=== PATIENT | female | born 1950 | race Caucasian/White ===

== ENCOUNTER → 2018-05-29 06:39 | Outpatient (CLI) | payer MEDICARE, OTHER, SELFPAY ==
[2018-05-24 14:01] VITALS: BMI 25.1
--- NOTE | 2018-05-29 15:45 | STRESSREP_ITS ---
Stress Test Report Date: 05/29/2018 Procedure: Pharmacologic stress nuclear imaging study Indications: CAD status post PCI Consent: Per the patient Procedure: The patient underwent pharmacologic (Regadenoson) evaluation with a peak heart rate of 67 beats per minute (44 predicted maximal heart rate) and a peak blood pressure of 190/90 mmHg. The baseline ECG demonstrated sinus bradycardia. The peak pharmacologic ECG demonstrated no obvious ECG changes. [There were no cardiac dysrhythmias pretest, during pharmacologic infusion, or recovery]. [There was no complaint of chest discomfort during pharmacologic infusion or recovery]. The examination was discontinued secondary to completion of protocol. Impression: 1. Pharmacologic (Regadenoson) evaluation 2. Peak pharmacologic ECG with obvious ECG changes. 3. [There were no cardiac dysrhythmias pretest, during pharmacologic infusion, or recovery]. 4. Nuclear images pending Myocardial perfusion imaging study: Technique: The patient was injected with 10.9 millicuries of technetium 99m Cardiolite and subsequently rest SPECT Cardiolite nuclear imaging was obtained in the horizontal long, vertical long, and short axis views. The patient underwent pharmacologic (Regadenoson) evaluation with a peak heart rate of 67 beats per minute (44 % percent predicted maximal heart rate) and a peak blood pressure of 190/90 mmHg. The patient was injected with 31. millicuries of technetium 99m Cardiolite and subsequently stress SPECT Cardiolite nuclear imaging was obtained in the horizontal long, vertical long, and short axis views. A gated Cardiolite study at peak stress was obtained. Interpretation: Rest and stress SPECT Cardiolite nuclear imaging status post realignment, normalization, and attenuation correction demonstrate relative uniform tracer uptake and myocardial perfusion appearing within normal limits. [There is end systolic thickening and brightening]. [The gated Cardiolite study demonstrates myocardial thickening and inward wall motion]. The reported LVEF is 94 %. Impression: 1. [Rest and stress SPECT Cardiolite nuclear imaging demonstrate relative uniform tracer uptake and myocardial perfusion appearing within normal limits]. 2. The gated Cardiolite study reports an LVEF of 94 %. This note was generated with [email or web address] software. It may contain incorrect words, spelling, and punctuation that were not noted in checking the note before signing.
--- OUTSIDE RECORDS SUMMARY | 2018-07-15 05:12 | XMS RPT_ITS ---
:1950 Author Organization OHIP Support Name Relationship Address Phone SUMAYA RUIZ Unavailable [address] + [place] [address] R Unavailable Unavailable Unavailable FLORENCIO CENTENO Unavailable [address] + [place] [address] SARALIAMON Unavailable [address] + [place] [address] R Unavailable Unavailable Unavailable FLORENCIO CENTENO Unavailable [address] + [place] [address] SARA SUMAYA Unavailable [address] + [place] [address] R Unavailable Unavailable Unavailable FLORENCIO CENTENO Unavailable [address] + [place] [address] SARALIAMON Unavailable [address] + [place] [address] R Unavailable Unavailable Unavailable FLORENCIO CENTENO Unavailable [address] + [place] [address] SARALIAMON Unavailable [address] + [place] [address] R Unavailable Unavailable Unavailable FLORENCIO CENTENO Unavailable [address] + [place] [address] SUMAYA RUIZ Unavailable [address] + [place] [address] R Unavailable Unavailable Unavailable FLORENCIO CENTENO Unavailable [address] + [place] [address] SUMAYA RUIZ Unavailable [address] + [place] [address] R Unavailable Unavailable Unavailable FLORENCIO CENTENO Unavailable [address] + [place] [address] R Unavailable Unavailable Unavailable FLORENCIO CENTENO Unavailable [address] + [place] [address] R Unavailable Unavailable Unavailable FLORENCIO CENTENO Unavailable [address] + [place] [address] Care Team Providers Name Role Phone TALAMPAS, JOSE D Referring Unavailable PYLE, MARLENI (EXERCISE SCIENCE INSTRUCTOR) Attending Unavailable AYO HURTADO Attending Unavailable PYLE, MARLENI (EXERCISE SCIENCE INSTRUCTOR) Referring Unavailable TALAMPAS, JOSE D Attending Unavailable TALAMPAS, JOSE D Referring Unavailable TALAMPAS, JOSE D Attending Unavailable TALAMPAS, JOSE D Referring Unavailable PYLE, MARLENI (EXERCISE SCIENCE INSTRUCTOR) Referring Unavailable PYLE, MARLENI (EXERCISE SCIENCE INSTRUCTOR) Attending Unavailable KELLIE KONG (VANESSA) Referring Unavailable Cebul, Michele Attending Unavailable Cebul, Michele Referring Unavailable Talampas, Jose Primary Care Unavailable Penelope Koenig Attending Unavailable Penelope Koenig Referring Unavailable Talampas, Jose Primary Care Unavailable Penelope Koenig Attending Unavailable Talampas, Jose Referring Unavailable Cebul, Michele Attending Unavailable Talampas, Jose Referring Unavailable Cebul, Michele Attending Unavailable Cebul, Michele Referring Unavailable Talampas, Jose Primary Care Unavailable Cebul, Michele Consulting Unavailable Penelope Moscoso Attending Unavailable StoneyisSergio worhty Attending Unavailable Penelope Koenig Referring Unavailable MoodispaSergio casper Attending Unavailable Talampas, Jose Referring Unavailable MoodispawSergio Attending Unavailable Talampas, Jose Referring Unavailable Talampas, Jose Primary Care Unavailable PROBLEMS PROBLEMS DATE TYPE CONDITION / CODE ATTENDING STATUS SOURCE 07/02/2018 Unknown I73.9 - Peripheral Michele [facility] disease, Community unspecified / Hospital I73.9(ICD-10) Repository 05/24/2018 Unknown I25.10 - [facility] Atherosclerotic heart Penelope Kapoor [facility] disease [facility] coronary artery Repository without angina pectoris / I25.10(ICD-10) 05/24/2018 Unknown I10 - Essential [facility] Active [place] (primary) Penelope Kapoor [facility] hypertension / Hospital I10(ICD-10) Repository 05/24/2018 Unknown E78.5 - [facility], Active [facility] Hyperlipidemia, Penelope Kapoor Community unspecified / Hospital E78.5(ICD-10) Repository 12/18/2017 Active Hypothyroidism, NA Active [place] unspecified / Clinic Main E03.9(ICD-10) [place] Repository 03/19/2018 Active Unknown / JOSE FINLEY Active [place] UNK(Unknown) D Clinic Main [place] Repository 12/18/2017 Active Encounter for [facility] screening mammogram [facility] Main for malignant [place] neoplasm of breast / Repository Z12.31(ICD-10) 12/01/2017 Active [facility] [place] [facility] [place] [facility] (current) drug Clinic Main therapy / [place] Z79.899(ICD-10) Repository 09/09/2016 Active Scoliosis, NA [facility] unspecified / Clinic Other M41.9(ICD-10) [place] Repository 10/08/2015 Active Monoclonal gammopathy [facility] / D47.2(ICD-10) [facility] Main [place] Repository 04/17/2015 Active Essential (primary) [facility] hypertension / Clinic Main I10(ICD-10) [place] Repository 08/20/2009 Active Vitamin D deficiency, [facility] unspecified / Clinic Main E55.9(ICD-10) [place] Repository 12/05/2007 Active Mixed hyperlipidemia [facility] / E78.2(ICD-10) Clinic Main [place] Repository PROCEDURES PROCEDURES No Procedure Records FoundRESULTS RESULTS PROGRESS Observed: 07/02/2018 Status: COMPLETED Source: [place] 4:44 PM [facility] REPOSITORY HNO ID: [id number] Author: Marleni Pyle (Cns) Service: (none) Author Type: Nurse Specialist Type: Progress Notes Filed: 07/03/2018 5:01 PM Note Text: This note was created using NoteWriter. Subjective Celena Centeno is a 67 year old female. HPI HTN: Ms. Centeno indicates that she is without headache, chest pain, palpitations, dyspnea, peripheral edema, orthopnea, fatigue and PND. No adverse effects of medication as noted. Tries to eat a heart healthy diet. Weight is stable. Last 3 Encounter BP Readings: Date: BP: 07/02/2018 130/62 03/19/2018 124/68 12/08/2017 124/62 Hyperlipidemia. Ms. Centeno reports doing well on current therapy. No adverse effects of medication noted Her most recent lipid panels are: Cholesterol, Total (mg/dL) Date Value 06/28/2018 189 08/31/2017 202 HDL Cholesterol (mg/dL) Date Value 06/28/2018 39 08/31/2017 42 LDL Cholesterol (mg/dL) Date Value 06/28/2018 127 08/31/2017 134 Triglyceride (mg/dL) Date Value 06/28/2018 117 08/31/2017 132 Hypothyroidism. She is doing well on her current dose of Synthroid. No report of fatigue, cold intolerance, constipation, swelling in feet, weight gain, hair loss, dry skin, trouble swallowing and neck pain/pressure. TSH (uU/mL) Date Value 06/28/2018 4.170 03/19/2018 2.340 ) Review of Systems Constitutional: Negative. Respiratory: Negative. Cardiovascular: Negative. Gastrointestinal: Negative. Objective BP 130/62 (BP Site: Right Arm, BP Position: Sitting, BP Cuff Size: Regular Adult) Pulse (!) 56 Resp 16 Wt 64.9 kg (143 lb) BMI 25.33 kg/m? Physical Exam Constitutional: She is oriented to person, place, and time. She appears well-developed and well-nourished. HENT: Head: Normocephalic and atraumatic. Eyes: Conjunctivae are normal. Right eye exhibits no discharge. Left eye exhibits no discharge. No scleral icterus. Neck: No thyromegaly present. Cardiovascular: Normal rate, regular rhythm, normal heart sounds and intact distal pulses. Exam reveals no gallop and no friction rub. No murmur heard. Pulmonary/Chest: Effort normal and breath sounds normal. No respiratory distress. She has no wheezes. She exhibits no tenderness. Abdominal: Soft. Bowel sounds are normal. There is no tenderness. There is no guarding. Lymphadenopathy: She has no cervical adenopathy. Neurological: She is alert and oriented to person, place, and time. Skin: Skin is warm and dry. Psychiatric: She has a normal mood and affect. Nursing note and vitals reviewed. ALLERGIES Allergen Reactions - Codeine Hives - Darvon [Propoxyphen* Hives - Morphine Other: See Comments Made tongue swell - Penicillins Anaphylaxis - Simvastatin Other: See Comments elevated LFTS; had tolerated Lipitor for years without problem Current Outpatient Prescriptions: nystatin (MYCOSTATIN) powder Apply 1 application to affected area three times daily. [START ON 08/01/2018] sertraline (ZOLOFT) 100 mg tablet TAKE 1 TABLET EVERY DAY levothyroxine (SYNTHROID) 50 mcg tablet Take 0.5 tablets by mouth daily before breakfast. cholecalciferol, vitamin D3, (VITAMIN D3) 4,000 unit cap Take by mouth. pantoprazole DR (PROTONIX) 20 mg tablet Take 1 tablet by mouth twice daily. buPROPion (WELLBUTRIN) 100 mg tablet Take 1 tablet by mouth once daily. ferrous sulfate 325 mg (65 mg iron) tablet Take 1 tablet by mouth daily with breakfast. atorvastatin (LIPITOR) 40 mg tablet Take 1 tablet by mouth once daily. clopidogrel (PLAVIX) 75 mg tablet Take 1 tablet by mouth once daily. atenolol (TENORMIN) 25 mg tablet Take 1 tablet by mouth once daily. amLODIPine (NORVASC) 5 mg tablet Take 1 tablet by mouth once daily. nitroglycerin sublingual (NITROQUICK) 0.4 mg SL tablet Dissolve 1 tablet under the tongue as needed. DISSOLVE ON TONGUE FOR CHEST PAIN. IF NO PAIN RELIEF, CALL 911 polyethylene glycol 3350 (MIRALAX, GLYCOLAX) 17 gram/dose powder Take 17 g by mouth once daily. Use as needed. aspirin, enteric coated (ECOTRIN LOW STRENGTH) 81 mg ORAL EC tablet Take 1 tablet by mouth once daily. clonazePAM (KLONOPIN) 0.5 mg tablet Take 1 tablet by mouth once daily as needed for up to 60 days. No current facility-administered medications for this visit. Social History Marital status: Spouse name: Florencio Years of education: Number of children: 0 Social History Main Topics Smoking status: Former Smoker Packs/day: 0.50 Years: 30.00 Types: Cigarettes Quit date: 06/19/2002 Smokeless tobacco: Never Used Alcohol use: Yes Comment: socially Drug use: No Comment: Used marjiana in the past Sexual activity: Not Currently PAST MEDICAL HISTORY Diagnosis Date - Acute gastritis without mention of hemorrhage - Acute myocardial infarction of other specified sites, episode of care unspecified Myocardial Infarction--DR RAY - Adenomatous colon polyp TA on Jun 2015 colonoscopy (Dr. 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 Davison - Severe vulvar dysplasia - Vitamin D Deficiency 08/20/2009 Component Latest Ref Rng AND Units 08/31/2017 12/01/2017 03/19/2018 06/28/2018 Protein, Total 6.3 - 8.0 g/dL 7.7 Albumin 3.9 - 4.9 g/dL 4.4 Calcium 8.5 - 10.2 mg/dL 10.1 10.1 9.8 Bilirubin, Total 0.2 - 1.3 mg/dL 0.3 Alkaline Phosphatase 32 - 117 U/L 83 AST 13 - 35 U/L 19 Glucose 74 - 99 mg/dL 105 (H) 99 100 (H) BUN 7 - 21 mg/dL 13 12 9 Creatinine 0.58 - 0.96 mg/dL 0.98 (H) 0.83 0.76 Sodium 136 - 144 mmol/L 140 144 142 Potassium 3.7 - 5.1 mmol/L 3.2 (L) 3.8 3.7 Chloride 97 - 105 mmol/L 100 104 101 CO2 22 - 30 mmol/L 24 24 25 Anion Gap 9 - 18 mmol/L 16 16 16 ALT 7 - 38 U/L 16 eGFR- >60 >60 >60 eGFR-All Other Races . 57 >60 >60 WBC 3.70 - 11.00 k/uL 11.22 (H) RBC 3.90 - 5.20 m/uL 4.69 Hemoglobin 11.5 - 15.5 g/dL 14.1 Hematocrit 36.0 - 46.0 % 43.4 MCV 80.0 - 100.0 fL 92.5 MCH 26.0 - 34.0 pG 30.1 MCHC 30.5 - 36.0 g/dL 32.5 RDW-CV 11.5 - 15.0 % 13.8 Platelet Count 150 - 400 k/uL 229 MPV 9.0 - 12.7 fL 11.1 Absolute nRBC <0.01 k/uL <0.01 Cholesterol, Total <200 mg/dL 202 (H) 189 Triglyceride <150 mg/dL 132 117 HDL Cholesterol >39 mg/dL 42 39 (L) LDL Cholesterol <100 mg/dL 134 (H) 127 (H) Non HDL Cholesterol <130 mg/dL 160 (H) 150 (H) Fasting Time hrs 8 19 VLDL Cholesterol <30 mg/dL 26 23 TC:HDL Ratio <5.10 4.81 4.85 LDL:HDL Ratio <2.54 3.19 (H) 3.26 (H) Hemoglobin A1C 4.3 - 5.6 % 5.5 Estimated Average Glucose mg/dL 111 TSH 0.400 - 5.500 uU/mL 4.890 5.330 2.340 4.170 Free T4 0.9 - 1.7 ng/dL 1.3 1.4 1.4 Vitamin D 25 Hydroxy 31.0 - 80.0 ng/mL 44.5 49.0 Free T3 2.3 - 4.1 pg/mL 2.8 Assessment and Plan 1. Mixed hyperlipidemia - ICD9: 272.2, ICD10: E78.2 (primary diagnosis) - good control - Continue current medication. - COMP METABOLIC PANEL - LIPID PANEL BASIC 2. Essential hypertension - ICD9: 401.9, ICD10: I10 - good control - Continue current medication(s) - Encouraged dietary sodium restriction/DASH diet - Recommended regular aerobic exercise. - Goal of BP <130/80 - COMP METABOLIC PANEL 3. Acquired hypothyroidism - ICD9: 244.9, ICD10: E03.9 Feeling well her current dose of thyroid replacement, continue unchanged for now. Recheck labs in 3-12 mos, sooner if concerns will - Instructed patient on importance of taking on an empty stomach either first thing in the morning or at bedtime. - continue current dose of Synthroid - Follow up in 3 months - COMP METABOLIC PANEL - TSH BLD - T4 FREE/FREE THYROX 4. Bipolar disorder, current episode manic without psychotic features, severe (HCC) - ICD9: 296.43, ICD10: F31.13 Currently controlled 5. Vitamin D deficiency - ICD9: 268.9, ICD10: E55.9 Continue supplementation unchanged - VITAMIN D 25 HYDROXY 6. Candidiasis - ICD9: 112.9, ICD10: B37.9 - NYSTATIN 100,000 UNIT/GRAM TOPICAL POWDER follow up 3 mos with MD Marleni Lopez APRN.EXERCISE SCIENCE INSTRUCTOR CNOV Observed: 07/02/2018 Status: COMPLETED Source: [place] 4:40 PM [facility] REPOSITORY Office Visit (INTMWS) CELENA CENTENO ([id number]) 1950 F Date Time Provider Department 07/02/18 4:40 PM MARLENI PYLE ([facility]) INTM[facility] During your visit today, we recorded the following information about you: Pulse Respiration Blood pressure Weight 56/minute 16/minute 130/62 64.9 kg Marleni Pyle APRN.CNS 07/03/2018 5:01 PM Signed This note was created using NoteWriter. Subjective Celena Centeno is a 67 year old female. HPI HTN: Ms. Centeno indicates that she is without headache, chest pain, palpitations, dyspnea, peripheral edema, orthopnea, fatigue and PND. No adverse effects of medication as noted. Tries to eat a heart healthy diet. Weight is stable. Last 3 Encounter BP Readings: Date: BP: 07/02/2018 130/62 03/19/2018 124/68 12/08/2017 124/62 Hyperlipidemia. Ms. Centeno reports doing well on current therapy. No adverse effects of medication noted Her most recent lipid panels are: Cholesterol, Total (mg/dL) Date Value 06/28/2018 189 08/31/2017 202 HDL Cholesterol (mg/dL) Date Value 06/28/2018 39 08/31/2017 42 LDL Cholesterol (mg/dL) Date Value 06/28/2018 127 08/31/2017 134 Triglyceride (mg/dL) Date Value 06/28/2018 117 08/31/2017 132 Hypothyroidism. She is doing well on her current dose of Synthroid. No report of fatigue, cold intolerance, constipation, swelling in feet, weight gain, hair loss, dry skin, trouble swallowing and neck pain/pressure. TSH (uU/mL) Date Value 06/28/2018 4.170 03/19/2018 2.340 ) Review of Systems Constitutional: Negative. Respiratory: Negative. Cardiovascular: Negative. Gastrointestinal: Negative. Objective BP 130/62 (BP Site: Right Arm, BP Position: Sitting, BP Cuff Size: Regular Adult) Pulse (!) 56 Resp 16 Wt 64.9 kg (143 lb) BMI 25.33 kg/m? Physical Exam Constitutional: She is oriented to person, place, and time. She appears well-developed and well-nourished. HENT: Head: Normocephalic and atraumatic. Eyes: Conjunctivae are normal. Right eye exhibits no discharge. Left eye exhibits no discharge. No scleral icterus. Neck: No thyromegaly present. Cardiovascular: Normal rate, regular rhythm, normal heart sounds and intact distal pulses. Exam reveals no gallop and no friction rub. No murmur heard. Pulmonary/Chest: Effort normal and breath sounds normal. No respiratory distress. She has no wheezes. She exhibits no tenderness. Abdominal: Soft. Bowel sounds are normal. There is no tenderness. There is no guarding. Lymphadenopathy: She has no cervical adenopathy. Neurological: She is alert and oriented to person, place, and time. Skin: Skin is warm and dry. Psychiatric: She has a normal mood and affect. Nursing note and vitals reviewed. ALLERGIES Allergen Reactions - Codeine Hives - Darvon [Propoxyphen* Hives - Morphine Other: See Comments Made tongue swell - Penicillins Anaphylaxis - Simvastatin Other: See Comments elevated LFTS; had tolerated Lipitor for years without problem Current Outpatient Prescriptions: nystatin (MYCOSTATIN) powder Apply 1 application to affected area three times daily. [START ON 08/01/2018] sertraline (ZOLOFT) 100 mg tablet TAKE 1 TABLET EVERY DAY levothyroxine (SYNTHROID) 50 mcg tablet Take 0.5 tablets by mouth daily before breakfast. cholecalciferol, vitamin D3, (VITAMIN D3) 4,000 unit cap Take by mouth. pantoprazole DR (PROTONIX) 20 mg tablet Take 1 tablet by mouth twice daily. buPROPion (WELLBUTRIN) 100 mg tablet Take 1 tablet by mouth once daily. ferrous sulfate 325 mg (65 mg iron) tablet Take 1 tablet by mouth daily with breakfast. atorvastatin (LIPITOR) 40 mg tablet Take 1 tablet by mouth once daily. clopidogrel (PLAVIX) 75 mg tablet Take 1 tablet by mouth once daily. atenolol (TENORMIN) 25 mg tablet Take 1 tablet by mouth once daily. amLODIPine (NORVASC) 5 mg tablet Take 1 tablet by mouth once daily. nitroglycerin sublingual (NITROQUICK) 0.4 mg SL tablet Dissolve 1 tablet under the tongue as needed. DISSOLVE ON TONGUE FOR CHEST PAIN. IF NO PAIN RELIEF, CALL 911 polyethylene glycol 3350 (MIRALAX, GLYCOLAX) 17 gram/dose powder Take 17 g by mouth once daily. Use as needed. aspirin, enteric coated (ECOTRIN LOW STRENGTH) 81 mg ORAL EC tablet Take 1 tablet by mouth once daily. clonazePAM (KLONOPIN) 0.5 mg tablet Take 1 tablet by mouth once daily as needed for up to 60 days. No current facility-administered medications for this visit. Social History Marital status: Spouse name: Florencio Years of education: Number of children: 0 Social History Main Topics Smoking status: Former Smoker Packs/day: 0.50 Years: 30.00 Types: Cigarettes Quit date: 06/19/2002 Smokeless tobacco: Never Used Alcohol use: Yes Comment: socially Drug use: No Comment: Used marjiana in the past Sexual activity: Not Currently PAST MEDICAL HISTORY Diagnosis Date - Acute gastritis without mention of hemorrhage - Acute myocardial infarction of other specified sites, episode of care unspecified Myocardial Infarction--DR RAY - Adenomatous colon polyp TA on Jun 2015 colonoscopy (Dr. 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 Davison - Severe vulvar dysplasia - Vitamin D Deficiency 08/20/2009 Component Latest Ref Rng AND Units 08/31/2017 12/01/2017 03/19/2018 06/28/2018 Protein, Total 6.3 - 8.0 g/dL 7.7 Albumin 3.9 - 4.9 g/dL 4.4 Calcium 8.5 - 10.2 mg/dL 10.1 10.1 9.8 Bilirubin, Total 0.2 - 1.3 mg/dL 0.3 Alkaline Phosphatase 32 - 117 U/L 83 AST 13 - 35 U/L 19 Glucose 74 - 99 mg/dL 105 (H) 99 100 (H) BUN 7 - 21 mg/dL 13 12 9 Creatinine 0.58 - 0.96 mg/dL 0.98 (H) 0.83 0.76 Sodium 136 - 144 mmol/L 140 144 142 Potassium 3.7 - 5.1 mmol/L 3.2 (L) 3.8 3.7 Chloride 97 - 105 mmol/L 100 104 101 CO2 22 - 30 mmol/L 24 24 25 Anion Gap 9 - 18 mmol/L 16 16 16 ALT 7 - 38 U/L 16 eGFR- >60 >60 >60 eGFR-All Other Races . 57 >60 >60 WBC 3.70 - 11.00 k/uL 11.22 (H) RBC 3.90 - 5.20 m/uL 4.69 Hemoglobin 11.5 - 15.5 g/dL 14.1 Hematocrit 36.0 - 46.0 % 43.4 MCV 80.0 - 100.0 fL 92.5 MCH 26.0 - 34.0 pG 30.1 MCHC 30.5 - 36.0 g/dL 32.5 RDW-CV 11.5 - 15.0 % 13.8 Platelet Count 150 - 400 k/uL 229 MPV 9.0 - 12.7 fL 11.1 Absolute nRBC <0.01 k/uL <0.01 Cholesterol, Total <200 mg/dL 202 (H) 189 Triglyceride <150 mg/dL 132 117 HDL Cholesterol >39 mg/dL 42 39 (L) LDL Cholesterol <100 mg/dL 134 (H) 127 (H) Non HDL Cholesterol <130 mg/dL 160 (H) 150 (H) Fasting Time hrs 8 19 VLDL Cholesterol <30 mg/dL 26 23 TC:HDL Ratio <5.10 4.81 4.85 LDL:HDL Ratio <2.54 3.19 (H) 3.26 (H) Hemoglobin A1C 4.3 - 5.6 % 5.5 Estimated Average Glucose mg/dL 111 TSH 0.400 - 5.500 uU/mL 4.890 5.330 2.340 4.170 Free T4 0.9 - 1.7 ng/dL 1.3 1.4 1.4 Vitamin D 25 Hydroxy 31.0 - 80.0 ng/mL 44.5 49.0 Free T3 2.3 - 4.1 pg/mL 2.8 Assessment and Plan 1. Mixed hyperlipidemia - ICD9: 272.2, ICD10: E78.2 (primary diagnosis) - good control - Continue current medication. - COMP METABOLIC PANEL - LIPID PANEL BASIC 2. Essential hypertension - ICD9: 401.9, ICD10: I10 - good control - Continue current medication(s) - Encouraged dietary sodium restriction/DASH diet - Recommended regular aerobic exercise. - Goal of BP <130/80 - COMP METABOLIC PANEL 3. Acquired hypothyroidism - ICD9: 244.9, ICD10: E03.9 Feeling well her current dose of thyroid replacement, continue unchanged for now. Recheck labs in 3-12 mos, sooner if concerns will - Instructed patient on importance of taking on an empty stomach either first thing in the morning or at bedtime. - continue current dose of Synthroid - Follow up in 3 months - COMP METABOLIC PANEL - TSH BLD - T4 FREE/FREE THYROX 4. Bipolar disorder, current episode manic without psychotic features, severe (HCC) - ICD9: 296.43, ICD10: F31.13 Currently controlled 5. Vitamin D deficiency - ICD9: 268.9, ICD10: E55.9 Continue supplementation unchanged - VITAMIN D 25 HYDROXY 6. Candidiasis - ICD9: 112.9, ICD10: B37.9 - NYSTATIN 100,000 UNIT/GRAM TOPICAL POWDER follow up 3 mos with MD Marleni Lopez APRN.EXERCISE SCIENCE INSTRUCTOR Referring Provider: SELF [200] Allergies As of Date: 07/02/2018 Noted Allergy Reaction CODEINE 10/11/2007 4 - Hives DARVON (PROPOXYPHENE HCL) 10/11/2007 4 - Hives MORPHINE 09/14/2017 14 - Other: See Comments Comments: Made tongue swell PENICILLINS 10/11/2007 10 - Anaphylaxis SIMVASTATIN 04/17/2012 14 - Other: See Comments Comments: elevated LFTS; had tolerated Lipitor for years without problem Date Reviewed: 07/02/2018 Reviewed by: Mary Ann Henao LPN - Fully Assessed Reason for Visit: F/U 3 Month [443] Primary Visit Diagnosis:Mixed hyperlipidemia [E78.2] Other Visit Diagnoses:Essential hypertension [I10] Acquired hypothyroidism [E03.9] Bipolar disorder, current episode manic without psychotic features, severe (HCC) [F31.13] Vitamin D deficiency [E55.9] Candidiasis [B37.9] Order(s):nystatin (MYCOSTATIN) powderApply 1 application to affected area three times daily.Disp: 1 BottleRfl: 0 COMP METABOLIC PANEL [SQCMP] Order #: [id number] FUTURE LIPID PANEL BASIC [SQLIPB] Order #: [id number] FUTURE TSH BLD [SQTSH] Order #: [id number] FUTURE VITAMIN D 25 HYDROXY [SQVITD] Order #: [id number] FUTURE T4 FREE/FREE THYROX [SQFT4] Order #: [id number] FUTURE Prescriptions as of 07/02/2018 Sig: NYSTATIN 100,000 UNIT/GRAM TO* Apply 1 application to affect* SERTRALINE 100 MG TABLET TAKE 1 TABLET EVERY DAY LEVOTHYROXINE 50 MCG TABLET Take 0.5 tablets by mouth nirmala* CHOLECALCIFEROL (VITAMIN D3) * Take by mouth. PANTOPRAZOLE 20 MG TABLET,DEL* Take 1 tablet by mouth twice * BUPROPION HCL 100 MG TABLET Take 1 tablet by mouth once d* FERROUS SULFATE 325 MG (65 MG* Take 1 tablet by mouth daily * ATORVASTATIN 40 MG TABLET Take 1 tablet by mouth once d* CLOPIDOGREL 75 MG TABLET Take 1 tablet by mouth once d* ATENOLOL 25 MG TABLET Take 1 tablet by mouth once d* AMLODIPINE 5 MG TABLET Take 1 tablet by mouth once d* NITROGLYCERIN 0.4 MG SUBLINGU* Dissolve 1 tablet under the t* POLYETHYLENE GLYCOL 3350 17 G* Take 17 g by mouth once daily* * ASPIRIN 81 MG TABLET,DELAYED * Take 1 tablet by mouth once d* CLONAZEPAM 0.5 MG TABLET Take 1 tablet by mouth once d* Problem List As Of Date 07/02/2018 Noted Resolved Essential hypertension [I10] More... MIXED HYPERLIPIDEMIA [E78.2] More... BIPOLAR DISORDER NOS [F31.9] More... Acquired hypothyroidism [E03.9] More... Acute myocardial infarction of other specified * 09/12/2016 More... DIVERTICULOSIS OF COLON W/O BLEED [K57.30] More... GENERAL OSTEOARTHROSIS [M15.9] More... IRRITABLE COLON [K58.9] INVALID FOR* ASCVD [I25.10] More... Vitamin D Deficiency [E55.9] INVALID FOR* Hypokalemia [E87.6] INVALID FOR* Anemia [D64.9] Acute gastritis without mention of hemorrhage [*INVALID FOR* Duodenitis without mention of hemorrhage [K29.8*INVALID FOR* Diarrhea [R19.7] INVALID FOR* Family history of malignant neoplasm of gastroi*INVALID FOR* Pyoderma, unspecified [L08.0] INVALID FOR* Acne Vulgaris: Inflammatory Grade III to IV: no*INVALID FOR* Excoriations [T14.8XXA] INVALID FOR* Xerosis cutis [L85.3] INVALID FOR* Solar lentigines [L81.4] INVALID FOR* Actinic Damage//Sun-damaged skin [L57.8] INVALID FOR* CAD (coronary artery disease), [place] coronary *INVALID FOR* More... 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 Fatty infiltration of liver [K76.0] INVALID FOR* Acne Scars [L90.5] INVALID FOR* IBS (irritable bowel syndrome) [K58.9] PAD (peripheral artery disease) [I73.9] INVALID FOR* Sciatica due to displacement of lumbar interver* More... GERD (gastroesophageal reflux disease) [K21.9] INVALID FOR* Iron deficiency anemia due to chronic blood los*INVALID FOR*06/24/2015 Family history of colon cancer [Z80.0] INVALID FOR*06/24/2015 MGUS (monoclonal gammopathy of unknown signific*INVALID FOR* Iron deficiency anemia [D50.9] INVALID FOR* Scoliosis of lumbar spine [M41.9] INVALID FOR* S/P lumbar spinal fusion [Z98.1] INVALID FOR* Prescriptions ordered this encounter Disp Refills Start End NYSTATIN 100,000 UNIT/GRAM TOPICAL P* 1 Mikey* 0 07/02/2018 Route: TOPICAL Sig: Apply 1 application to affected area three times daily. Medications Discontinued During This Encounter nystatin (MYCOSTATIN) powder 1 Mikey* 0 02/26/2016 07/02/2018 Route: TOPICAL Sig: Apply 1 application to affected area three times daily. Disc: Reason for discontinue is not on file. Encounter Status:Closed by MARLENI BARNETT on 07/03/18 SURGERY VISIT REPORT Observed: 07/02/2018 Status: F Source: [place] 1:28 PM [facility] REPOSITORY [facility] 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 Is patient in pain?: Yes Allergies codeine Allergy (Severe, Verified 07/02/18 13:07) Swelling propoxyphene HCl [From Darvon] Allergy (Severe, Verified 07/02/18 13:07) Other simvastatin Allergy (Verified 07/02/18 13:07) Unknown Penicillins Adverse Reaction (Intermediate, Verified 07/02/18 13:07) Nausea/Vom/Diarrhea Medications Amlodipine [Norvasc] 5 mg PO DAILY 06/04/13 [History Confirmed 07/02/18] Aspirin [Aspirin, Baby] 81 mg PO DAILY@0800 06/04/13 [History Confirmed 07/02/18] Atenolol [Tenormin (beta madelaine)] 25 mg PO DAILY 06/04/13 [History Confirmed 07/02/18] Clopidogrel Bisulfate [Plavix] 75 mg PO DAILY 06/04/13 [History Confirmed 07/02/18] Nitroglycerin [Nitrostat] 0.4 mg SUBLINGUAL Q5M PRN 06/04/13 [History Confirmed 07/02/18] Pantoprazole Sodium [Protonix] 20 mg PO BID 06/04/13 [History Confirmed 07/02/18] cholecalciferol (vitamin D3) 5,000 unit capsule 5,000 unit PO DAILY 05/24/18 [History Confirmed 07/02/18] atorvastatin 40 mg tablet 40 mg PO DAILY 30 Days #30 tab 06/28/18 [History Confirmed 07/02/18] bupropion HCl SR 100 mg tablet,12 hr sustained-release 100 mg PO DAILY 06/28/18 [History Confirmed 07/02/18] levothyroxine 50 mcg tablet 25 mcg PO DAILY tab 06/28/18 [History Confirmed 07/02/18] sertraline 100 mg tablet 100 mg PO DAILY tab 06/28/18 [History Confirmed 07/02/18] Is last menstrual period known: No Post menopausal: Yes Patient : No PFSH Medical History Hypothyroidism (Chronic) Presence of stent in coronary artery (Chronic) Atherosclerotic heart disease of [place] coronary artery without angina pectoris (Chronic) HLD (hyperlipidemia) (Chronic) Benign essential HTN (Chronic) IBS (irritable bowel syndrome) (Chronic) History of hysterectomy (Resolved) Arteriosclerotic heart disease (ASHD) (Inactive) Surgical History PAD (peripheral artery disease) (Chronic) History of aorto-femoral bypass (Acute) History of heart artery stent (Acute) History of hysterectomy (Resolved) History of left knee surgery (Resolved) History of lumbar surgery (Resolved) Family History Brother CVA (cerebral vascular accident) Heart disease Cancer Social History Smoking Status: Former smoker alcohol intake: never substance use type: does not use HPI HPI HPI: CELENA CENTENO, is a 67 F who presents to the office today for for surgical follow-up regarding bilateral lower extremity peripheral vascular occlusive disease. I have assisted her with surgery in the year 2015. She states that when she showers she cannot feel the water hit her left anterior thigh. Occasionally she has tingling go down her left anterior thigh. With walking she still develops bilateral calf claudication. On February 01, 2016 I performed a left external iliac and common femoral endarterectomy with bovine patch angioplasty. She has had recent PVRs performed at the [facility] on June 25, 2018. The right PT and DP ABIs were 1 and 0.96 with triphasic waveforms. The left PT and DP ABIs were 0.92 and 0.91 also with triphasic waveforms. Exercise indices were not obtained. It is of note that August 17, 2015 prior to her surgical intervention on her left leg her right PT and DP ABIs were 1.04 and 0.98 in her left PT and DP ABIs were 0.55 and 0.55. At that time her waveforms on the left were only monophasic. The current testing demonstrates dramatic improvement involving the left lower extremity. The patient is on aspirin and clopidogrel therapy. She had previously been a longtime cigarette smoker. She thinks she quit as many as 14 years ago but her still smokes. Although she has a treadmill in the basement she does not utilize it. She walks sometimes during [place]. She gets very little exercise during the winter. ROS General General: Yes fatigue; no weight change, appetite, colon cancer, breast cancer or weakness HEENT HEENT: No difficulty swallowing, eye injury, eye surgery, swollen glands or hoarseness Endo Endocrine: Yes thyroid disease; no diabetes mellitus, thyroid cancer, Hair loss, heat intolerance or cold intolerance Musc Musculoskeletal: Yes back problems and arthritis; no rheumatoid arthritis, gout or joint pain Cardio Cardiovascular: Yes heart disease, high blood pressure, heart attack and heart stent; no murmur, pacemaker, atrial fibrillation, palpitations, shortness of breat with exertion or chest pain Resp Respiratory: No shortness of breath, No sleep apnea, No cough, No COPD, No asthma, No emphysema, No wheezing Gastro Gastrointestinal: No abdominal pain, No nausea or vomiting, Yes diarrhea, No constipation, No blood in stool, Yes acid reflux, No hemorrhoids, No ulcers, No gallbladder problem, No black,tarry stools Jabari Hematologic: Yes blood thinners, No blood disorders, No bleeding, Yes anemia, No blood clots Neuro Neurologic: No weakness Exam Chest Other: Increased anterior posterior diameter Resp Other: Diminished respiratory excursion, clear Cardio Heart Sounds: no murmurs Other: Bilateral carotids are 3+. No carotid bruits. Bilateral brachials and radials are 2+ Bilateral femorals 3+. Bilateral popliteals 3+. Bilateral DPs and PTs 2+. Extrem Other: Very nicely completely healed soft and supple left groin incision related to her endarterectomy with patch angioplasty. No palpable tenderness. No mass. No erythema. Not expansile Assessment AND Plan Problems 1. PAD (peripheral artery disease) I73.9 Plan 67-year-old female with what appears to be stable peripheral vascular occlusive disease. I suspect that the left anterior thigh intermittent numbness likely has to do with her left external iliac common femoral endarterectomy with patch angioplasty with some mild neuropraxia. I am not demonstrating any signs or symptoms that would suggest deterioration of that repair or infection or complication. I have vigorously encouraged the patient that I think it is in her best interest to initiate a daily exercise program which could be as simple as walking. We have discussed winter cold weather and her utilizing the treadmill that she already has at home or utilizing an indoor facility for walking. I am not recommending surgical intervention at this setting. She has had an opportunity to ask and have questions answered. I will anticipate PVRs with exercise at 1 year and surgical follow-up at that time. She has had an opportunity to ask and have questions answered. I am actually quite pleased with the surgical results and progress. I believe that this mostly now is in encouragement for self rehabilitation CC: Dr. Jose Corrales M.D., F.A.C.S Coding Level of Care Code Off vis,est,level 2 Diagnoses PAD (peripheral artery disease) I73.9 07/02/18 1328 <Electronically signed by Michele Corrales MD> Date Michele Corrales MD Cosigner Signature: Date (if applicable) CC: Jose Finley MD BASIC METABOLIC PANL Collected: 06/28/2018 Status: F Source: [place] 2[facility] REPOS[facility] TYPE CODE TESTS RESULT OUT OF REFERENCE UNITS RANGE LAB GLU 74-99 mg/dL High Glucose 100 Result Comment: The [place] Diabetes Association (ADA) provides guidance for cutoff values for fasting glucose and random glucose. The ADA defines fasting as no caloric intake for at least 8 hours. Fas ting plasma glucose results between 100 to 125 mg/dL indicate increased risk for diabetes (prediabetes). Fasting plasma glucose results greater than or equal to 126 mg/dL meet the criteria for diagnosis of diabetes. In the absence of unequivocal hyperglycemia, results should be confirmed by repeat testing. In a patient with classic symptoms of hyperglycemia or hyperglycemic crisis, random plasma glucose results greater than or equal to 200 mg/dL meet the criteria for diagnosis of diabetes. Reference: Standards of Medical Care in Diabetes 2016, [place] Diabetes Association. Diabetes Care. 2016.39(Suppl 1). LAB BUN 7-21 mg/dL BUN 9 LAB CRET 0.58-0.96 mg/dL Creatinine 0.76 LAB NA 136-144 mmol/L Sodium 142 LAB K 3.7-5.1 mmol/L Potassium 3.7 LAB CL 97-105 mmol/L Chloride 101 LAB CO2 22-30 mmol/L CO2 25 LAB AGAP 9-18 mmol/L Anion Gap 16 LAB CA 8.5-10.2 mg/dL Calcium, Total 9.8 LAB GFRAA eGFR- Amer. >60 LAB GFRNAA . eGFR-All Other Races >60 Result Comment: eGFR (Estimated GFR) Units of measure: mL/min/1.73 meters squared eGFR is derived from the reexpressed MDRD Study equation using the following parameters: serum creatinine, age, gender and race. The creatinine assay has been calibrated to be traceable to IDMS. An eGFR <60 mL/min/1.73m2 for >3 months is consistent with chronic kidney disease. Refer to KDOQI guidelines for clinical interpretation. In patients with unstable renal function, e.g. those with acute kidney injury, the eGFR may not accurately reflect actual GFR. Performed By: #### BMP, LIPB, TSH #### [facility] [address] [place] [id number] LIPID PANEL, BASIC Collected: 06/28/2018 Status: F Source: [place] 2:20 PM [facility] REPOSITORY TYPE CODE TESTS RESULT OUT OF REFERENCE UNITS RANGE LAB CHOL <200 mg/dL Cholesterol 189 Result Comment: <200 mg/dL, Desirable 200-239 mg/dL, Borderline high >239 mg/dL, High LAB TRIGLY <150 mg/dL Triglyceride 117 Result Comment: <150 mg/dL, Normal 150-199 mg/dL, Borderline high 200-499 mg/dL, High >499 mg/dL, Very high LAB HDL >39 mg/dL HDL-Cholesterol Low 39 Result Comment: 40-59 mg/dL, Acceptable >59 mg/dL, High: Negative risk factor for coronary heart disease <40 mg/dL, Low: Positive risk factor for coronary heart disease LAB LDL <100 mg/dL LDL-Cholesterol High 127 Result Comment: <100 mg/dL, Optimal 100-129 mg/dL, Near optimal/above optimal 130-159 mg/dL, Borderline high 160-189 mg/dL, High >189 mg/dL, Very high Secondary prevention optimal LDL Cholesterol levels are recommended to be < 70 mg/dL LAB NONHDL <130 mg/dL Non HDL High Cholesterol 150 Result Comment: <130 mg/dL, Optimal 130-159 mg/dL, Near optimal/above optimal 160-189 mg/dL, Borderline high 190-219 mg/dL, High >219 mg/dL, Very high Secondary prevention optimal non HDL Cholesterol levels are recommended to be < 100 mg/dL LAB FT hrs Fasting Time 19 LAB VLDL <30 mg/dL VLDL Cholesterol 23 LAB TCHDL <5.10 TC:HDL Ratio 4.85 LAB LDLHDL <2.54 High LDL:HDL Ratio 3.26 Result Comment: Reference: 1. National Cholesterol Education Program ATP III Guideline At-A-Glance Quick Desk Reference: National Heart, Lung, and Blood Junior. National Institutes of Health. 2001: NIH Publication No. 01-3305. 2. An International Atherosclerosis Society position paper: global recommendations for the management of dyslipidemia: executive summary, Atherosclerosis. 2014: 232(2):410-413. Performed By: #### BMP, LIPB, TSH #### [facility] [address], [place] [address] TSH Collected: 06/28/2018 Status: F Source: [place] 2:20 PM [facility] REPOSITORY TYPE CODE TESTS RESULT OUT OF RANGE REFERENCE UNITS LAB TSH 0.400-5.500 uU/mL TSH 4.170 Performed By: #### BMP, LIPB, TSH #### [facility] [address] [place], [place] [address] CARDIOLOGY VISIT Observed: 06/28/2018 Status: F Source: [place] REPORT 2:00 PM [facility] REPOSITORY [facility] [address] [place] [address] OFFICE VISIT Date of Service: 06/28/18 MR#: [id number] Acct: [id number] Name: CELENA CENTENO Rep #: [id number] : 1950 Provider: Sergio Ray MD Age/Sex: 67/F Location: [facility] Status: Signed HPI HPI Details: CELENA CENTENO, is a 67 F who presents to the office today for outpatient cardiovascular follow-up. She notes overall she is doing well with respect to not having ongoing chest pain or worsening shortness of breath/dyspnea. There has been no near syncope or syncope. Since her last visit she did undergo evaluation with a pharmacologic stress nuclear imaging study. She had no obvious ECG changes. There were no obvious myocardial perfusion changes. She is being evaluated by Dr. Michele Corrales for her peripheral arterial occlusive disease. She has had lower extremity arterial duplex studies performed. The results are pending at this time Intake Vital Signs06/28/18 Body Mass Index (BMI) 25.1 06/28/18 Height 5 ft 3 in 06/28/18 Weight: 142 lb 06/28/18 Body Mass Index (BMI) 25.1 06/28/18 Blood Pressure 142/70 H Intake Visit Reasons: 1 M FU Allergies codeine Allergy (Severe, Verified 06/28/18 13:13) Swelling propoxyphene HCl [From Darvon] Allergy (Severe, Verified 06/28/18 13:13) Other simvastatin Allergy (Verified 06/28/18 13:13) Unknown Penicillins Adverse Reaction (Intermediate, Verified 06/28/18 13:13) Nausea/Vom/Diarrhea Medications Amlodipine [Norvasc] 5 mg PO DAILY 06/04/13 [History Confirmed 06/28/18] Aspirin [Aspirin, Baby] 81 mg PO DAILY@0800 06/04/13 [History Confirmed 06/28/18] Atenolol [Tenormin (beta madelaine)] 25 mg PO DAILY 06/04/13 [History Confirmed 06/28/18] Clopidogrel Bisulfate [Plavix] 75 mg PO DAILY 06/04/13 [History Confirmed 06/28/18] Nitroglycerin [Nitrostat] 0.4 mg SUBLINGUAL Q5M PRN 06/04/13 [History Confirmed 06/28/18] Pantoprazole Sodium [Protonix] 20 mg PO BID 06/04/13 [History Confirmed 06/28/18] cholecalciferol (vitamin D3) 5,000 unit capsule 5,000 unit PO DAILY 05/24/18 [History Confirmed 06/28/18] atorvastatin 40 mg tablet 40 mg PO DAILY 30 Days #30 tab 06/28/18 [History Confirmed 06/28/18] bupropion HCl SR 100 mg tablet,12 hr sustained-release 100 mg PO DAILY 06/28/18 [History Confirmed 06/28/18] levothyroxine 50 mcg tablet 25 mcg PO DAILY tab 06/28/18 [History Confirmed 06/28/18] sertraline 100 mg tablet 100 mg PO DAILY tab 06/28/18 [History Confirmed 06/28/18] [facility] Medical History Hypothyroidism (Chronic) Presence of stent in coronary artery (Chronic) Atherosclerotic heart disease of [place] coronary artery without angina pectoris (Chronic) HLD (hyperlipidemia) (Chronic) Benign essential HTN (Chronic) IBS (irritable bowel syndrome) (Chronic) History of hysterectomy (Resolved) Arteriosclerotic heart disease (ASHD) (Inactive) Surgical History PAD (peripheral artery disease) (Chronic) History of hysterectomy (Resolved) History of left knee surgery (Resolved) History of lumbar surgery (Resolved) Family History Brother CVA (cerebral vascular accident) Heart disease Cancer Social History Smoking Status: Former smoker alcohol intake: never substance use type: does not use ROS Const Const: Negative for fatigue, weakness, weight gain, weight loss, frequent falls or excessive sweating Eyes Eyes: Negative for change in vision, blurry vision or transient loss of vision ENT ENT: Positive for dizziness (with hot flashes); negative for balance problems Cardio Chest Pain: No Palpitations: No Edema: Bilateral (slight) Muscle aches with walking: Left (cramping with ambulation) Resp Respiratory: Negative for SOB with activity or SOB at rest GI GI: Negative vomiting or vomiting blood/hematemesis : Negative for hematuria Musc Musc: Negative for balance problems, muscle aches/ myalgia, muscle weakness or joint pain Skin Skin: Negative non-healing lesions or rash Neuro Neuro: Positive for dizziness (with hot flashes); negative for weakness, blurry vision, lightheadedness, frequent falls or orthostatic symptoms Jabari Hematologic/Lymphatic: Negative for easy bleeding Endo Endo: Negative for fatigue or excessive sweating Psych Psych: Negative for anxiety or depression Allergy Allergy/Immunology: Negative for hives, Negative for rash Cardiology Exam Const Appearance: cooperative, no acute distress, well developed, healthy appearing, comfortable and well groomed Nutritional Appearance: average body habitus Orientation: alert, awake and oriented x3 Head Head: normocephalic, atraumatic and normal to inspection Ears: hearing grossly normal bilaterally Nose: external nose normal Face and Sinus: face symmetric Mouth: moist mucous membranes Teeth and gingiva: fair dentition Eyes Eyelids: eyelids normal Conjunctivae: conjunctivae normal Pupils: PERRL EOM: EOM intact bilaterally Neck Neck: normal visual inspection, no JVD and full ROM Carotids: normal carotid upstroke; negative bruit Neck Mass: Negative Neck mass Chest Chest inspection: normal inspection of the chest, symmetric chest movement and respiratory distress Auscultation: Bilateral: Clear to Auscultation Cardio Palpation: normal PMI Rate: regular rate Rhythm: regular rhythm Heart sounds: S1 normal and S2 normal; negative rub, gallop or murmur GI GI: normal to inspection, soft and bowel sounds present; negative tender Neuro General: alert, awake, oriented x3 and moves all extremities Skin Skin: no rashes or lesions noted Extremities Pulses: Normal: Right Posterior Tibial Pulse, Left Posterior Tibial Pulse, Right Radial Pulse, Left Radial Pulse Lower Extremity Edema: None: Bilateral Psych Psychological: normal affect Assessment AND Plan 1. Atherosclerosis of [place] coronary artery of [place] heart without angina pectoris I25.10 Plan At the present time she appears to be doing well with no acute symptoms or adverse events. She will continue her current medical management and follow-up 2. Presence of stent in coronary artery Z95.5 PTCA of RCA 05/16/97; PTCA/stent of the distal RCA 05/19/97;PTCA/stent of the patent pre existing stent in the mid right posterior atroventricular artery, PTCA/stent of the mid RCA and PTCA of the distal RCA 08/08/12 Plan She does have a history of previous PCI as noted above. At the moment she appears to be without acute symptoms. She will continue medical therapy and follow up. 3. PAD (peripheral artery disease) I73.9 left knee surgery, right common iliac angioplasty, bilateral common iliac stenting 05/31, R common femoral and superficial femoral and profunda femoral enarterectomies with bovine patch angioplasty 08/15/13; Lt External illiac and common femeral endarterectomy 02/01 Plan She is following with Dr. Michele Corrales for her peripheral arterial occlusive disease. 4. Pure hypercholesterolemia E78.00 Plan A copy of her most recent lipid labs would be appreciated for continuity of care. 5. Benign essential HTN I10 Plan She was asked to monitor her blood pressures at home. If her blood pressure trends are elevated then she may need further adjustment of her medical therapy. Plan Detail Additional Comments Thank you for allowing me to participate in the care of your patient. Please don't hesitate to call if any issues arise. This note was generated using a voice recognition system and there may be incorrect words, spelling or punctuation that were not noted when reviewing the office note prior to saving. Follow Up 6 Months (PFM) Coding Level of Care Code Off vis,est,level 3 Diagnoses Atherosclerosis of [place] coronary artery of [place] heart without angina pectoris I25.10 [place] vs. transplanted heart: [place] heart Presence of stent in coronary artery Z95.5 PAD (peripheral artery disease) I73.9 Pure hypercholesterolemia E78.00 Hyperlipidemia type: pure hypercholesterolemia Benign essential HTN I10 Coding Level of Care Code Off vis,est,level 3 Diagnoses Atherosclerosis of [place] coronary artery of [place] heart without angina pectoris I25.10 [place] vs. transplanted heart: [place] heart Presence of stent in coronary artery Z95.5 PAD (peripheral artery disease) I73.9 Pure hypercholesterolemia E78.00 Hyperlipidemia type: pure hypercholesterolemia Benign essential HTN I10 Supplemental Info Supplemental Information Labs LDL Cholesterol 95 mg/dL (0-130) 08/17/15 HDL Cholesterol 45 mg/dL (40-) 08/17/15 Triglycerides 103 mg/dL (-199) 08/17/15 VLDL Cholesterol 21 mg/dL (5-40) 08/17/15 Diagnostics Stress Test 05/29/18 06/28/18 1400 <Electronically signed by Sergio Ray MD> Date Sergio Ray MD Cosigner Signature: Date (if applicable) CC: Jose Finley MD; Michele Corrales MD ARTERIAL Observed: 06/26/2018 Status: F Source: [place] 11:37 AM [facility] REPOSITORY [facility] Cardiovascular Services [address] [place] [address] Lower Ext Art Exam w/o Exercis 06/25/18 1402 MR#: [id number] Acct: [id number] Name: CELENA CENTENO Rep #: [id number] : 1950 67 From: Michele Corrales MD Attending Dr: Michele Corrales MD Status: REG CLI Ordering Dr: Michele Corrales MD Date: 06/25/18 Location: [facility] Sex: F C Admitted: Reason For Study: Claudication Left Segmental Pressures Left brachial= 148mmHg. Left thigh = 168mmHg. Left calf = 146mmHg. Left posterior tibial artery = 144.mmHg. Left dorsalis pedis artery = 143mmHg. The left dorsalis pedis waveforms are triphasic. The left posterior tibial artery waveforms are triphasic. Right Segmental Pressures Right brachial= 157mmHg. Right posterior tibial artery = 157mmHg. Right dorsalis pedis artery = 150mmHg. The right dorsalis pedis waveforms are triphasic. The right posterior tibial artery waveforms are triphasic. Indices The right ankle brachial index by the dorsalis pedis is .96. The right ankle brachial index by the posterior tibial artery is 1.0. The left ankle brachial index by the dorsalis pedis is .91. The left ankle brachial index by the posterior tibial artery is .92. Interpretation Summary Normal resting right ABIs and waveforms. Normal volume pulse recordings at the calfand distally. Mildly diminished left ABIs at 0.92 and 0.91. Normal triphasic waveforms. Normal volume pulse recording amplification at the calf.Mildly diminished digital waveforms. Findings on the left correlate with mild vascular claudication. The level of the diseaes cannot be determined. Ordering Physician: Michele Corrales Referring Physician: Michele Corrales Performed By: Jory Robison RVT 06/26/18 1137 Date Michele Corrales MD CC: Jose Finley MD; Michele Corrales MD Date Dictated: 06/25/18 1402 Date Transcribed: 06/26/18 1137 Exhaust Worker: Signed STRESS REPORT Observed: 05/29/2018 Status: F Source: [place] 5:57 PM [facility] REPOSITORY [facility] Cardiovascular Services [address] [place] [id number] MR#: [id number] Acct: [id number] Name: CELENA CENTENO Rep #: [id number] : 1950 67 From: Sergio Ray MD Primary Care: Jose Finley MD Status: REG CLI Ordering Dr: Sex: F C Stress Test Report Date: 05/29/2018 Procedure: Pharmacologic stress nuclear imaging study Indications: CAD status post PCI Consent: Per the patient Procedure: The patient underwent pharmacologic (Regadenoson) evaluation with a peak heart rate of 67 beats per minute (44 predicted maximal heart rate) and a peak blood pressure of 190/90 mmHg. The baseline ECG demonstrated sinus bradycardia. The peak pharmacologic ECG demonstrated no obvious ECG changes. [There were no cardiac dysrhythmias pretest, during pharmacologic infusion, or recovery]. [There was no complaint of chest discomfort during pharmacologic infusion or recovery]. The examination was discontinued secondary to completion of protocol. Impression: 1. Pharmacologic (Regadenoson) evaluation 2. Peak pharmacologic ECG with obvious ECG changes. 3. [There were no cardiac dysrhythmias pretest, during pharmacologic infusion, or recovery]. 4. Nuclear images pending Myocardial perfusion imaging study: Technique: The patient was injected with 10.9 millicuries of technetium 99m Cardiolite and subsequently rest SPECT Cardiolite nuclear imaging was obtained in the horizontal long, vertical long, and short axis views. The patient underwent pharmacologic (Regadenoson) evaluation with a peak heart rate of 67 beats per minute (44 % percent predicted maximal heart rate) and a peak blood pressure of 190/90 mmHg. The patient was injected with 31. millicuries of technetium 99m Cardiolite and subsequently stress SPECT Cardiolite nuclear imaging was obtained in the horizontal long, vertical long, and short axis views. A gated Cardiolite study at peak stress was obtained. Interpretation: Rest and stress SPECT Cardiolite nuclear imaging status post realignment, normalization, and attenuation correction demonstrate relative uniform tracer uptake and myocardial perfusion appearing within normal limits. [There is end systolic thickening and brightening]. [The gated Cardiolite study demonstrates myocardial thickening and inward wall motion]. The reported LVEF is 94 %. Impression: 1. [Rest and stress SPECT Cardiolite nuclear imaging demonstrate relative uniform tracer uptake and myocardial perfusion appearing within normal limits]. 2. The gated Cardiolite study reports an LVEF of 94 %. This note was generated with [employer]ation software. It may contain incorrect words, spelling, and punctuation that were not noted in checking the note before signing. 05/29/18 6957 <Electronically signed by Sergio Ray MD> Date Sergio Ray MD CC: Jose Finley MD; Penelope Koenig Date Dictated: 05/29/18 153 Date Transcribed: 05/29/181538 Exhaust Worker: PM Signed CARDIOLOGY VISIT Observed: 05/25/2018 Status: F Source: [place] REPORT 10:59 AM [facility] REPOSITORY [facility] [address] [place] [address] OFFICE VISIT Date of Service: 05/24/18 MR#: [id number] Acct: [id number] Name: CELENA CENTENO Rep #: [id number] : 1950 Provider: Penelope Koenig Age/Sex: 67/F Location: [facility] Status: Signed HPI HPI Details: CELENA CENTENO, is a 67 F who presents to the office today for a cardiovascular followup. She has a history of coronary artery disease with stenting to her posterior intraventricular artery and RCA in 2012, peripheral vascular disease- she had a right common femoral artery endarterectomy with patch angioplasty, hypertension and hyperlipidemia. From a cardiac standpoint, patient is doing well. She does not have any chest discomfort/heaviness/tightness. Her exercise tolerance is stable for her age. She does not have any worsening symptoms of shortness of breath. She does not have any orthopnea. She denies PND. She does not have any symptoms of congestive heart failure. She does not have any palpitations that she is aware of. She does not have any lightheadedness or dizziness. She does not have any near-syncope or syncope. She does not have any lower extremity edema. She does not have any symptoms of claudication. Intake Vital Signs05/24/18 Height 5 ft 3 in 05/24/18 Weight: 142 lb 05/24/18 Body Mass Index (BMI) 25.1 05/24/18 Blood Pressure 136/70 H 05/24/18 Pulse Rate 80 Intake Visit Reasons: 6 m fu Allergies codeine Allergy (Severe, Verified 08/08/13 13:24) Swelling propoxyphene HCl [From Darvon] Allergy (Severe, Verified 08/08/13 13:24) Other simvastatin Allergy (Verified 06/04/13 08:48) Unknown Penicillins Adverse Reaction (Intermediate, Verified 08/08/13 13:24) Nausea/Vom/Diarrhea Medications Amlodipine [Norvasc] 5 mg PO DAILY 06/04/13 [History Confirmed 05/24/18] Aspirin [Aspirin, Baby] 81 mg PO DAILY@0800 06/04/13 [History Confirmed 05/24/18] Atenolol [Tenormin (beta madelaine)] 25 mg PO DAILY 06/04/13 [History Confirmed 05/24/18] Clonazepam [Klonopin] 0.5 mg PO DAILY 06/04/13 [History Confirmed 05/24/18] Clopidogrel Bisulfate [Plavix] 75 mg PO DAILY 06/04/13 [History Confirmed 05/24/18] Levothyroxine [Synthroid] 50 mcg PO DAILY 06/04/13 [History Confirmed 05/24/18] Nitroglycerin [Nitrostat] 0.4 mg SUBLINGUAL Q5M PRN 06/04/13 [History Confirmed 05/24/18] Pantoprazole Sodium [Protonix] 20 mg PO BID 06/04/13 [History Confirmed 05/24/18] Sertraline HCl [Zoloft] 100 mg PO BID 06/04/13 [History Confirmed 05/24/18] atorvastatin 40 mg tablet PO 30 Days #30 tab 05/24/18 [History Confirmed 05/24/18] cholecalciferol (vitamin D3) 5,000 unit capsule 5,000 unit PO DAILY 05/24/18 [History Confirmed 05/24/18] PFSH Medical History HLD (hyperlipidemia) (Chronic) Benign essential HTN (Chronic) Arteriosclerotic heart disease (ASHD) (Chronic) History of hysterectomy (Resolved) Surgical History PAD (peripheral artery disease) (Chronic) History of lumbar surgery (Resolved) Family History Brother CVA (cerebral vascular accident) Heart disease Cancer Social History Smoking Status: Former smoker ROS Const Const: Negative for weakness, fatigue, fever(s) or headache(s) Eyes Eyes: Negative for blind spots, loss of peripheral vision or transient loss of vision ENT ENT: Negative for headache(s), dizziness, tinnitus or Nosebleed/epistaxis Cardio Chest Pain: No Palpitations: No Edema: None Muscle aches with walking: None Resp Respiratory: Negative for SOB with activity, SOB at rest, SOB orthopnea\SOB lying down or Cough GI GI: Negative nausea, vomiting, heartburn or vomiting blood/hematemesis : Negative for hematuria Musc Musc: Negative for muscle aches/ myalgia Neuro Neuro: Negative for weakness, headache(s), dizziness, near syncope, syncope, lightheadedness or orthostatic symptoms Jabari Hematologic/Lymphatic: Negative for easy bleeding Endo Endo: Negative for fatigue Cardiology Exam Const Appearance: cooperative, no acute distress and well developed Orientation: alert, awake and oriented x3 Head Head: normocephalic and atraumatic Mouth: moist mucous membranes Eyes General: appearance normal, both eyes and all related structures Conjunctivae: conjunctivae normal Pupils: PERRL EOM: EOM intact bilaterally Neck Neck: normal visual inspection, no lymphadenopathy and no JVD Carotids: Negative bruit Neck Mass: Negative Neck mass Chest Chest inspection: normal inspection of the chest and symmetric chest movement Auscultation: Bilateral: Diminished Lung Sounds Cardio Palpation: normal PMI Rate: regular rate Rhythm: regular rhythm Heart sounds: S1 normal and S2 normal; negative rub, gallop or murmur GI GI: normal to inspection, soft, no hepatosplenomegaly and bowel sounds present; negative tender Neuro General: alert, awake, oriented x3, CN's II-XI intact bilaterally and moves all extremities Extremities Pulses: Normal: Right Posterior Tibial Pulse, Left Posterior Tibial Pulse, Right Radial Pulse, Left Radial Pulse Lower Extremity Edema: None: Bilateral Psych Psychological: normal affect Supplemental Info Echocardiogram in 2017 demonstrated: Left ventricular systolic function is normal. The estimated ejection fraction is 65 %. Mild diffuse mitral valve thickening. Mild focal mitral valve calcification of the anterior leaflet. Mild (1+) mitral valve insufficiency. Mild tricuspid valve insufficiency. Right ventricular systolic pressure estimated to be 29 mmHg. Assessment AND Plan 1. Arteriosclerotic heart disease (ASHD) I25.10 PTCA of RCA 1996, cardiac cath (left) 1997, 2001 2005,07/2012, PTCA of distal and mid RCA 08/01 Plan Patient does not have any symptoms of angina. She will continue with current aggressive medical management and risk factor modification. It has been greater than 5 years since patient has had a stress test done. With her history of coronary artery disease would like to proceed with this. Patient is agreeable. Orders Orders: 2. Benign essential HTN I10 Plan Well controlled on current medications. Will not make any adjustments. Orders Orders: 3. Pure hypercholesterolemia E78.00; E78.0 Plan managed by PCP, will continue current medications 4. PAD (peripheral artery disease) I73.9 left knee surgery, right common iliac angioplasty, bilateral common iliac stenting 05/31, R common femoral and superficial femoral and profunda femoral enarterectomies with bovine patch angioplasty 08/15/13; Lt External illiac and common femeral endarterectomy 02/01 Plan Patient does follow with Dr. Corrales. She does not have any symptoms of claudication. Orders Orders: Plan Detail Other Orders Orders: Additional Comments Thank you for allowing us to participate in patient's plan of care, if you have any questions please do not hesitate to call. This note was generated using a voice recognition system and there may be incorrect words, spelling or punctuation errors that were not noted when reviewing the office note prior to saving. Follow Up 6 Months (MMM) 1 Month (PFM) Coding Level of Care Code Off vis,est,level 3 Diagnoses Arteriosclerotic heart disease (ASHD) I25.10 Benign essential HTN I10 Pure hypercholesterolemia E78.00; E78.0 Hyperlipidemia type: pure hypercholesterolemia PAD (peripheral artery disease) I73.9 Coding Level of Care Code Off vis,est,level 3 Diagnoses Arteriosclerotic heart disease (ASHD) I25.10 Benign essential HTN I10 Pure hypercholesterolemia E78.00; E78.0 Hyperlipidemia type: pure hypercholesterolemia PAD (peripheral artery disease) I73.9 05/25/18 1059 <Electronically signed by Penelope MENDEZ> Date Penelope MENDEZ Cosigner Signature: Date (if applicable) CC: VITAMIN D 25 HYDROXY Collected: 03/19/2018 Status: F Source: [place] 11:10 AM [facility] REPOSITORY TYPE CODE TESTS RESULT OUT OF REFERENCE UNITS RANGE LAB VITD 31.0-80.0 ng/mL Vitamin D 25 49.0 Hydroxy Result Comment: Classification of 25 [place] Vitamin D status: Insufficiency/Moderate Deficiency: < or = 30 ng/mL Sufficiency/Optimal Levels: 31 to 80 ng/mL Toxicity: > 100 ng/mL Test performed by chemiluminescent immunoassay. Performed By: #### VITD, FT4, BMP, TSH #### [facility] [address] [place], [place] [address] FREE T4 Collected: 03/19/2018 Status: F Source: [place] 11:10 AM [facility] REPOSITORY TYPE CODE TESTS RESULT OUT OF RANGE REFERENCE UNITS LAB FT4 0.9-1.7 ng/dL Free T4 1.4 Performed By: #### VITD, FT4, BMP, TSH #### [facility] [address] [place], [place] [address] BASIC METABOLIC PANL Collected: 03/19/2018 Status: F Source: [place] 11:10 AM [facility] REPOSITORY TYPE CODE TESTS RESULT OUT OF REFERENCE UNITS RANGE LAB GLU 74-99 mg/dL Glucose 99 Result Comment: The [place] [employer] (ADA) provides guidance for cutoff values for fasting glucose and random glucose. The ADA defines fasting as no caloric intake for at least 8 hours. Fas ting plasma glucose results between 100 to 125 mg/dL indicate increased risk for diabetes (prediabetes). Fasting plasma glucose results greater than or equal to 126 mg/dL meet the criteria for diagnosis of diabetes. In the absence of unequivocal hyperglycemia, results should be confirmed by repeat testing. In a patient with classic symptoms of hyperglycemia or hyperglycemic crisis, random plasma glucose results greater than or equal to 200 mg/dL meet the criteria for diagnosis of diabetes. Reference: Standards of Medical Care in Diabetes 2016, [place] [employer]. Diabetes Care. 2016.39(Suppl 1). LAB BUN 7-21 mg/dL BUN 12 LAB CRET 0.58-0.96 mg/dL Creatinine 0.83 LAB NA 136-144 mmol/L Sodium 144 LAB K 3.7-5.1 mmol/L Potassium 3.8 LAB CL 97-105 mmol/L Chloride 104 LAB CO2 22-30 mmol/L CO2 24 LAB AGAP 9-18 mmol/L Anion Gap 16 LAB CA 8.5-10.2 mg/dL Calcium, Total 10.1 LAB GFRAA eGFR- Amer. >60 LAB GFRNAA . eGFR-All Other Races >60 Result Comment: eGFR (Estimated GFR) Units of measure: mL/min/1.73 meters squared eGFR is derived from the reexpressed MDRD Study equation using the following parameters: serum creatinine, age, gender and race. The creatinine assay has been calibrated to be traceable to IDMS. An eGFR <60 mL/min/1.73m2 for >3 months is consistent with chronic kidney disease. Refer to KDOQI guidelines for clinical interpretation. In patients with unstable renal function, e.g. those with acute kidney injury, the eGFR may not accurately reflect actual GFR. Performed By: #### VITD, FT4, BMP, TSH #### [facility] [address] [place], [place] [address] TSH Collected: 03/19/2018 Status: F Source: [place] 11:10 AM [facility] REPOSITORY TYPE CODE TESTS RESULT OUT OF RANGE REFERENCE UNITS LAB TSH 0.400-5.500 uU/mL TSH 2.340 Performed By: #### VITD, FT4, BMP, TSH #### [facility] [address] [place], [place] [address] PROGRESS Observed: 03/19/2018 Status: COMPLETED Source: [place] 10:26 AM [facility] REPOSITORY HNO ID: [id number] Author: Jose Finley Service: (none) Author Type: Physician Type: Progress Notes Filed: 04/03/2018 12:55 AM Note Text: Patient presents with: Recheck: Follow up SUBJECTIVE: Celena Centeno is a 67 year old year old lady here today for 3 month follow up appointment for review of medical conditions. Doing well on current meds. Noted had run out of clonazepam. Did okay. No withdrawal symptoms noted. Blood pressure controlled without adverse effects from medications. PAST MEDICAL HISTORY Diagnosis Date - Acute gastritis without mention of hemorrhage - Acute myocardial infarction of other specified sites, episode of care unspecified Myocardial Infarction--DR RAY - Adenomatous colon polyp TA on Jun 2015 colonoscopy (Dr. 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 Davison - Severe vulvar dysplasia - Vitamin D Deficiency 08/20/2009 Current Outpatient Prescriptions: cholecalciferol, vitamin D3, (VITAMIN D3) 4,000 unit cap Take by mouth. buPROPion (WELLBUTRIN) 100 mg tablet Take 1 tablet by mouth once daily. ferrous sulfate 325 mg (65 mg iron) tablet Take 1 tablet by mouth daily with breakfast. atorvastatin (LIPITOR) 40 mg tablet Take 1 tablet by mouth once daily. clopidogrel (PLAVIX) 75 mg tablet Take 1 tablet by mouth once daily. levothyroxine (SYNTHROID) 50 mcg tablet Take 0.5 tablets by mouth daily before breakfast. (plus 25mcg pill every other day--in other words alternating 75 mcg with 50 mcg every other day) atenolol (TENORMIN) 25 mg tablet Take 1 tablet by mouth once daily. amLODIPine (NORVASC) 5 mg tablet Take 1 tablet by mouth once daily. nitroglycerin sublingual (NITROQUICK) 0.4 mg SL tablet Dissolve 1 tablet under the tongue as needed. DISSOLVE ON TONGUE FOR CHEST PAIN. IF NO PAIN RELIEF, CALL 911 sertraline (ZOLOFT) 100 mg tablet Take 1 tablet by mouth once daily. pantoprazole DR (PROTONIX) 20 mg tablet Take 1 tablet by mouth twice daily. polyethylene glycol 3350 (MIRALAX, GLYCOLAX) 17 gram/dose powder Take 17 g by mouth once daily. Use as needed. nystatin (MYCOSTATIN) powder Apply 1 application to affected area three times daily. aspirin, enteric coated (ECOTRIN LOW STRENGTH) 81 mg ORAL EC tablet Take 1 tablet by mouth once daily. clonazePAM (KLONOPIN) 0.5 mg tablet Take 1 tablet by mouth once daily as needed for up to 90 days. atenolol (TENORMIN) 50 mg tablet Take 0.5 tablets by mouth once daily. (Patient not taking: Reported on 03/19/2018 ) No current facility-administered medications for this visit. OBJECTIVE: BP 124/68 Pulse 60 Resp 12 Wt 63.5 kg (140 lb) BMI 24.80 kg/m? Patient is alert, oriented times 3, no apparent distress, affect is bright, reactive. Last 5 Encounter BP Readings: Date: BP: 03/19/2018 124/68 12/08/2017 124/62 11/23/2017 146/90 09/14/2017 120/78 05/30/2017 158/80 Last 5 Encounter Wt Readings: Date: Wt: 03/19/2018 63.5 kg (140 lb) 12/08/2017 65.8 kg (145 lb) 11/23/2017 66.2 kg (146 lb) 09/14/2017 67.1 kg (148 lb) 05/30/2017 64.4 kg (142 lb) Heart: Regular rate, rhythm, no murmurs, gallops, rubs. Lungs: Clear to auscultation, bilaterally, breathing non labored. Ext: No cyanosis, clubbing, or edema. ASSESSMENT AND PLAN: Encounter Diagnosis ICD-10-CM 1. Acquired hypothyroidism E03.9 TSH BLD T4 FREE/FREE THYROX 2. Essential hypertension I10 BASIC METABOLIC PNL 3. Bipolar disorder, current episode manic without psychotic features, severe (HCC) F31.13 clonazePAM (KLONOPIN) 0.5 mg tablet ran out of clonazepam 2 weeks ago and is doing fine; will see if can get by on just as needed basis instead of scheduled 4. Vitamin D deficiency E55.9 cholecalciferol, vitamin D3, (VITAMIN D3) 4,000 unit cap VITAMIN D 25 HYDROXY 5. Hypokalemia E87.6 6. Mixed hyperlipidemia E78.2 7. Fatigue, unspecified type R53.83 8. Encounter for long-term current use of medication Z79.899 BASIC METABOLIC PNL Above issues addressed with patient. Patient involved in shared decision making for management of medical issues History and medications reviewed. Epic updated as needed Refills taken care of and meds adjusted as indicated after reviewed history, exam and labs. Health Maintenance reviewed. Updated record and/or ordered tests as recorded. Encouraged on efforts at healthy diet and regular exercise and adequate sleep. BP controlled. Stable on current meds. Continue present management. Further evaluation and treatment as indicated. The majority of the visit was spent counseling and/or coordinating care for the patient. [id number]-us-[id number] time was at least 20 minutes. Jose Finley MD CNOV Observed: 03/19/2018 Status: COMPLETED Source: [place] 9:40 AM [facility] REPOSITORY Office Visit (INTMWS) CELENA CENTENO ([id number]) 1950 F Date Time Provider Department 03/19/18 9:40 AM JOSE FINLEY During your visit today, we recorded the following information about you: Pulse Respiration Blood pressure Weight 60/minute 12/minute 124/68 63.5 kg Jose Finley MD 04/03/2018 12:55 AM Signed Patient presents with: Recheck: Follow up SUBJECTIVE: Celena Centeno is a 67 year old year old lady here today for 3 month follow up appointment for review of medical conditions. Doing well on current meds. Noted had run out of clonazepam. Did okay. No withdrawal symptoms noted. Blood pressure controlled without adverse effects from medications. PAST MEDICAL HISTORY Diagnosis Date - Acute gastritis without mention of hemorrhage - Acute myocardial infarction of other specified sites, episode of care unspecified Myocardial Infarction--DR RAY - Adenomatous colon polyp TA on Jun 2015 colonoscopy (Dr. 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 Davison - Severe vulvar dysplasia - Vitamin D Deficiency 08/20/2009 Current Outpatient Prescriptions: cholecalciferol, vitamin D3, (VITAMIN D3) 4,000 unit cap Take by mouth. buPROPion (WELLBUTRIN) 100 mg tablet Take 1 tablet by mouth once daily. ferrous sulfate 325 mg (65 mg iron) tablet Take 1 tablet by mouth daily with breakfast. atorvastatin (LIPITOR) 40 mg tablet Take 1 tablet by mouth once daily. clopidogrel (PLAVIX) 75 mg tablet Take 1 tablet by mouth once daily. levothyroxine (SYNTHROID) 50 mcg tablet Take 0.5 tablets by mouth daily before breakfast. (plus 25mcg pill every other day--in other words alternating 75 mcg with 50 mcg every other day) atenolol (TENORMIN) 25 mg tablet Take 1 tablet by mouth once daily. amLODIPine (NORVASC) 5 mg tablet Take 1 tablet by mouth once daily. nitroglycerin sublingual (NITROQUICK) 0.4 mg SL tablet Dissolve 1 tablet under the tongue as needed. DISSOLVE ON TONGUE FOR CHEST PAIN. IF NO PAIN RELIEF, CALL 911 sertraline (ZOLOFT) 100 mg tablet Take 1 tablet by mouth once daily. pantoprazole DR (PROTONIX) 20 mg tablet Take 1 tablet by mouth twice daily. polyethylene glycol 3350 (MIRALAX, GLYCOLAX) 17 gram/dose powder Take 17 g by mouth once daily. Use as needed. nystatin (MYCOSTATIN) powder Apply 1 application to affected area three times daily. aspirin, enteric coated (ECOTRIN LOW STRENGTH) 81 mg ORAL EC tablet Take 1 tablet by mouth once daily. clonazePAM (KLONOPIN) 0.5 mg tablet Take 1 tablet by mouth once daily as needed for up to 90 days. atenolol (TENORMIN) 50 mg tablet Take 0.5 tablets by mouth once daily. (Patient not taking: Reported on 03/19/2018 ) No current facility-administered medications for this visit. OBJECTIVE: BP 124/68 Pulse 60 Resp 12 Wt 63.5 kg (140 lb) BMI 24.80 kg/m? Patient is alert, oriented times 3, no apparent distress, affect is bright, reactive. Last 5 Encounter BP Readings: Date: BP: 03/19/2018 124/68 12/08/2017 124/62 11/23/2017 146/90 09/14/2017 120/78 05/30/2017 158/80 Last 5 Encounter Wt Readings: Date: Wt: 03/19/2018 63.5 kg (140 lb) 12/08/2017 65.8 kg (145 lb) 11/23/2017 66.2 kg (146 lb) 09/14/2017 67.1 kg (148 lb) 05/30/2017 64.4 kg (142 lb) Heart: Regular rate, rhythm, no murmurs, gallops, rubs. Lungs: Clear to auscultation, bilaterally, breathing non labored. Ext: No cyanosis, clubbing, or edema. ASSESSMENT AND PLAN: Encounter Diagnosis ICD-10-CM 1. Acquired hypothyroidism E03.9 TSH BLD T4 FREE/FREE THYROX 2. Essential hypertension I10 BASIC METABOLIC PNL 3. Bipolar disorder, current episode manic without psychotic features, severe (HCC) F31.13 clonazePAM (KLONOPIN) 0.5 mg tablet ran out of clonazepam 2 weeks ago and is doing fine; will see if can get by on just as needed basis instead of scheduled 4. Vitamin D deficiency E55.9 cholecalciferol, vitamin D3, (VITAMIN D3) 4,000 unit cap VITAMIN D 25 HYDROXY 5. Hypokalemia E87.6 6. Mixed hyperlipidemia E78.2 7. Fatigue, unspecified type R53.83 8. Encounter for long-term current use of medication Z79.899 BASIC METABOLIC PNL Above issues addressed with patient. Patient involved in shared decision making for management of medical issues History and medications reviewed. Epic updated as needed Refills taken care of and meds adjusted as indicated after reviewed history, exam and labs. Health Maintenance reviewed. Updated record and/or ordered tests as recorded. Encouraged on efforts at healthy diet and regular exercise and adequate sleep. BP controlled. Stable on current meds. Continue present management. Further evaluation and treatment as indicated. The majority of the visit was spent counseling and/or coordinating care for the patient. Hngc-kj-yenq time was at least 20 minutes. MD Jose Gomes MD 03/19/2018 10:49 AM Addendum Do not need to take clonazepam on a routine basis anymore since been off 2 weeks. Can use just as needed. See if half pill all you need. Okay to take iron pill every other day. Okay to continue on half pill thyroid pill until get lab results back then will adjust as needed. Referring Provider: SELF [[id number]] Allergies As of Date: 03/19/2018 Noted Allergy Reaction CODEINE 10/11/2007 4 - Hives DARVON (PROPOXYPHENE HCL) 10/11/2007 4 - Hives MORPHINE 09/14/2017 14 - Other: See Comments Comments: Made tongue swell PENICILLINS 10/11/2007 10 - Anaphylaxis SIMVASTATIN 04/17/2012 14 - Other: See Comments Comments: elevated LFTS; had tolerated Lipitor for years without problem Date Reviewed: 03/19/2018 Reviewed by: Carly Dolan LPN - Fully Assessed Reason for Visit: Recheck [92] Cmt: Follow up Primary Visit Diagnosis:Acquired hypothyroidism [E03.9] Other Visit Diagnoses:Essential hypertension [I10] Bipolar disorder, current episode manic without psychotic features, severe (HCC) [F31.13] Comment:ran out of clonazepam 2 weeks ago and is doing fine; will see if can get by on just as needed basis instead of scheduled Vitamin D deficiency [E55.9] Hypokalemia [E87.6] Mixed hyperlipidemia [E78.2] Fatigue, unspecified type [R53.83] Encounter for long-term current use of medication [Z79.899] Order(s):TSH BLD [SQTSH] Order #: [id number] FUTURE T4 FREE/FREE THYROX [SQFT4] Order #: [id number] FUTURE BASIC METABOLIC PNL [SQBMP] Order #: [id number] FUTURE VITAMIN D 25 HYDROXY [SQVITD] Order #: [id number] FUTURE pantoprazole DR (PROTONIX) 20 mg tabletTake 1 tablet by mouth twice daily.Disp: 60 tabletRfl: 11 clonazePAM (KLONOPIN) 0.5 mg tabletTake 1 tablet by mouth once daily as needed for up to 60 days.Disp: 30 tabletRfl: 1 Prescriptions as of 03/19/2018 Sig: CHOLECALCIFEROL (VITAMIN D3) * Take by mouth. PANTOPRAZOLE 20 MG TABLET,DEL* Take 1 tablet by mouth twice * BUPROPION HCL 100 MG TABLET Take 1 tablet by mouth once d* FERROUS SULFATE 325 MG (65 MG* Take 1 tablet by mouth daily * ATORVASTATIN 40 MG TABLET Take 1 tablet by mouth once d* CLOPIDOGREL 75 MG TABLET Take 1 tablet by mouth once d* LEVOTHYROXINE 50 MCG TABLET Take 0.5 tablets by mouth nirmala* ATENOLOL 25 MG TABLET Take 1 tablet by mouth once d* AMLODIPINE 5 MG TABLET Take 1 tablet by mouth once d* NITROGLYCERIN 0.4 MG SUBLINGU* Dissolve 1 tablet under the t* SERTRALINE 100 MG TABLET Take 1 tablet by mouth once d* POLYETHYLENE GLYCOL 3350 17 G* Take 17 g by mouth once daily* NYSTATIN 100,000 UNIT/GRAM TO* Apply 1 application to affect* * ASPIRIN 81 MG TABLET,DELAYED * Take 1 tablet by mouth once d* CLONAZEPAM 0.5 MG TABLET Take 1 tablet by mouth once d* Medication notes this encounter ATENOLOL 50 MG TABLET >> Jose Finley MD 03/19/2018 10:33 AM >> JOSE FINLEY MD MonMar 19, 2018 10:33 AM Is taking >> Jose Finley MD 03/19/2018 10:35 AM >> JOSE FINLEY MD MonMar 19, 2018 10:35 AM Taking 25 mg pill instead Problem List As Of Date 03/19/2018 Noted Resolved Essential hypertension [I10] More... MIXED HYPERLIPIDEMIA [E78.2] More... BIPOLAR DISORDER NOS [F31.9] More... Acquired hypothyroidism [E03.9] More... Acute myocardial infarction of other specified * 09/12/2016 More... DIVERTICULOSIS OF COLON W/O BLEED [K57.30] More... GENERAL OSTEOARTHROSIS [M15.9] More... IRRITABLE COLON [K58.9] INVALID FOR* ASCVD [I25.10] More... Vitamin D Deficiency [E55.9] INVALID FOR* Hypokalemia [E87.6] INVALID FOR* Anemia [D64.9] Acute gastritis without mention of hemorrhage [*INVALID FOR* Duodenitis without mention of hemorrhage [K29.8*INVALID FOR* Diarrhea [R19.7] INVALID FOR* Family history of malignant neoplasm of gastroi*INVALID FOR* Pyoderma, unspecified [L08.0] INVALID FOR* Acne Vulgaris: Inflammatory Grade III to IV: no*INVALID FOR* Excoriations [T14.8XXA] INVALID FOR* Xerosis cutis [L85.3] INVALID FOR* Solar lentigines [L81.4] INVALID FOR* Actinic Damage//Sun-damaged skin [L57.8] INVALID FOR* CAD (coronary artery disease), [place] coronary *INVALID FOR* Priority: A More... 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 Fatty infiltration of liver [K76.0] INVALID FOR* Acne Scars [L90.5] INVALID FOR* IBS (irritable bowel syndrome) [K58.9] PAD (peripheral artery disease) [I73.9] INVALID FOR* Sciatica due to displacement of lumbar interver* More... GERD (gastroesophageal reflux disease) [K21.9] INVALID FOR* Iron deficiency anemia due to chronic blood los*INVALID FOR*06/24/2015 Family history of colon cancer [Z80.0] INVALID FOR*06/24/2015 MGUS (monoclonal gammopathy of unknown signific*INVALID FOR* Iron deficiency anemia [D50.9] INVALID FOR* Scoliosis of lumbar spine [M41.9] INVALID FOR* S/P lumbar spinal fusion [Z98.1] INVALID FOR* Other instructions from your clinician: Do not need to take clonazepam on a routine basis anymore since been off 2 weeks. Can use just as needed. See if half pill all you need. Okay to take iron pill every other day. Okay to continue on half pill thyroid pill until get lab results back then will adjust as needed. Prescriptions ordered this encounter Disp Refills Start End PANTOPRAZOLE 20 MG TABLET,DELAYED RE* 60 t* 11 03/19/2018 Route: ORAL Sig: Take 1 tablet by mouth twice daily. CLONAZEPAM 0.5 MG TABLET 30 t* 1 03/19/2018 05/18/2018 Class: Print RX Route: ORAL Sig: Take 1 tablet by mouth once daily as needed for up to 60 days. Medications Discontinued During This Encounter cholecalciferol, Vitamin D3, (VITAMI* 4 ca* 3 03/06/2017 03/19/2018 Route: ORAL Sig: Take 1 capsule by mouth once every month. Patient not taking: Reported on 03/19/2018 Disc: Reason for discontinue is not on file. atenolol (TENORMIN) 50 mg tablet 45 t* 3 03/08/2017 03/19/2018 Route: ORAL Sig: Take 0.5 tablets by mouth once daily. Disc: Reason for discontinue is not on file. pantoprazole DR (PROTONIX) 20 mg tab* 60 t* 11 05/04/2017 03/19/2018 Route: ORAL Sig: Take 1 tablet by mouth twice daily. Disc: Reason for discontinue is not on file. clonazePAM (KLONOPIN) 0.5 mg tablet 30 t* 2 12/08/2017 03/19/2018 Class: Print RX Cmt: Our records show that RX with 1 RF was sent in October but your records do not reflect that. This RX has refills to last 90 days total (each RX lasts 30 days with 3 RFs to last 90 days) Route: ORAL Sig: Take 1 tablet by mouth once daily as needed for up to 90 days. Disc: Reason for discontinue is not on file. Disposition: Return in about 3 months (around 06/19/2018) for 3 months follow up, 3 months follow up (make next 2 appointments). Follow-up and Disposition History Recorded Encounter Status:Closed by JOSE FINLEY MD on 04/03/18 CNCO Observed: 12/18/2017 Status: COMPLETED Source: [place] 1:35 PM [facility] RE[facility] HNO ID: [id number] Author: Mammography Coordinator Service: (none) Author Type: Physician Type: Letter Filed: 12/19/2017 11:32 PM Note Text: December 18, 2017 PID: [id number] Celena Centeno [address] [place], [place] [address] Dear Ms. Centeno, We are pleased to inform you that the results of your recent breast imaging exam on 12/18/2017 are normal. Early detection of cancer is very important. We also understand recommendations regarding breast cancer screening are controversial. Please discuss with your primary care provider which strategy is best for you and whether a mammogram is right for you. Your imaging studies and report will be kept on file at [facility] as part of your permanent medical record and are available for your continuing care. Thank you for allowing us to help in meeting your health care needs. Sincerely, Dr. Koroma Interpreting Radiologist [facility] (Normal over 40) [facility] SCREENING Observed: 12/18/2017 Status: F Source: [place] 1:33 PM [facility] REPOSITORY * * *Final Report* * * DATE OF EXAM: Dec 18 2017 1:33PM [facility] [id number] - [facility] SCREENING / PROCEDURE REASON: Encounter for screening mammogram for malignant neoplasm of breast * * * * Physician Interpretation * * * * RESULT: #[id number] - [facility] SCREENING BILATERAL DIGITAL SCREENING MAMMOGRAM WITH CAD: 12/18/2017 HISTORY: Encounter For Screening Mammogram For Malignant Neoplasm Of Breast /Screening Mammogram - patient reports NO breast symptoms /Priors available for comparison. RESULT: TECHNIQUE: The study was acquired using full field digital technology and interpreted from soft copy. Current study was also evaluated with a Computer Aided Detection (CAD). Comparison is made to exams dated: 11/29/2016 mammogram - [facility], 12/31/2015 mammogram, 07/02/2015 mammogram - [facility], and 05/25/2015 mammogram - [facility]. There are scattered fibroglandular elements in both breasts. No significant masses, calcifications, or other findings are seen in either breast. There has been no significant interval change. IMPRESSION: NEGATIVE There is no mammographic evidence of malignancy.A 1 year screening mammogram is recommended. Andria Koroma M.D. cp/belkis:12/18/2017 13:35:47 Air Hammer Stripper: Chitra CHAPPELL(Olegario)(Antwon), [facility] letter sent: Normal over 40 Mammogram BI-RADS: 1 Negative Exhaust Worker: Belkis Transcribe Date/Time: Dec 18 2017 1:14P Dictated by: ANDRIA KOROMA MD This examination was interpreted and the report reviewed and electronically signed by: ANDRIA KOROMA MD on Dec 18 2017 1:35PM EST [id number] Observed: 12/08/2017 Status: COMPLETED Source: [place] 12:54 PM [facility] HNO ID: [id number] Author: Jose Finley Service: (none) Author Type: Physician Type: Progress Notes Filed: 12/18/2017 12:43 AM Note Text: Patient presents with: Recheck: 6 month follow up SUBJECTIVE: Celena Centeno is a 66 year old year old lady here today for 6 month follow up appointment for review of medical conditions. Wants referral back to Dr. Carlos Fatima--saw for skin lesion on arm; now needs lesions on face evaluated. Noted nodular tender lesions on cheeks and between eyebrows. Red itchy rash too Like blisters around mouth sometimes [facility] evaluation--was rude and no better with treatment and follow ups. No change in soaps and shampoos. No new meds. PAST MEDICAL HISTORY Diagnosis Date - Acute gastritis without mention of hemorrhage - Acute myocardial infarction of other specified sites, episode of care unspecified Myocardial Infarction--DR RAY - Adenomatous colon polyp TA on Jun 2015 colonoscopy (Dr. 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 Davison - Severe vulvar dysplasia - Vitamin D Deficiency 08/20/2009 Current Outpatient Prescriptions: clopidogrel (PLAVIX) 75 mg tablet Take 1 tablet by mouth once daily. clonazePAM (KLONOPIN) 0.5 mg tablet TAKE 1 TABLET DAILY NEEDED levothyroxine (SYNTHROID) 50 mcg tablet Take 0.5 tablets by mouth daily before breakfast. (plus 25mcg pill every other day--in other words alternating 75 mcg with 50 mcg every other day) atorvastatin (LIPITOR) 40 mg tablet TAKE 1 TABLET EVERY DAY atenolol (TENORMIN) 25 mg tablet Take 1 tablet by mouth once daily. amLODIPine (NORVASC) 5 mg tablet Take 1 tablet by mouth once daily. nitroglycerin sublingual (NITROQUICK) 0.4 mg SL tablet Dissolve 1 tablet under the tongue as needed. DISSOLVE ON TONGUE FOR CHEST PAIN. IF NO PAIN RELIEF, CALL 911 sertraline (ZOLOFT) 100 mg tablet Take 1 tablet by mouth once daily. pantoprazole DR (PROTONIX) 20 mg tablet Take 1 tablet by mouth twice daily. polyethylene glycol 3350 (MIRALAX, GLYCOLAX) 17 gram/dose powder Take 17 g by mouth once daily. Use as needed. cholecalciferol, Vitamin D3, (VITAMIN D3) 50,000 unit cap capsule Take 1 capsule by mouth once every month. buPROPion (WELLBUTRIN) 100 mg tablet Take 1 tablet by mouth once daily. ferrous sulfate 325 mg (65 mg iron) tablet Take 1 tablet by mouth daily with breakfast. nystatin (MYCOSTATIN) powder Apply 1 application to affected area three times daily. aspirin, enteric coated (ECOTRIN LOW STRENGTH) 81 mg ORAL EC tablet Take 1 tablet by mouth once daily. atenolol (TENORMIN) 50 mg tablet Take 0.5 tablets by mouth once daily. (Patient taking differently: Take 50 mg by mouth once daily. ) No current facility-administered medications for this visit. OBJECTIVE: BP 124/62 Pulse 60 Resp 20 Wt 65.8 kg (145 lb) BMI 25.69 kg/m? Patient is alert, oriented times 3, no apparent distress, affect is bright, reactive. Last 5 Encounter BP Readings: Date: BP: 12/08/2017 124/62 11/23/2017 146/90 09/14/2017 120/78 05/30/2017 158/80 03/21/2017 144/82 Last 5 Encounter Wt Readings: Date: Wt: 12/08/2017 65.8 kg (145 lb) 11/23/2017 66.2 kg (146 lb) 09/14/2017 67.1 kg (148 lb) 05/30/2017 64.4 kg (142 lb) 03/21/2017 61.3 kg (135 lb 3.2 oz) Heart: Regular rate, rhythm, no murmurs, gallops, rubs. Lungs: Clear to auscultation, bilaterally, breathing non labored. Ext: No cyanosis, clubbing, or edema. Component Latest Ref Rng AND Units 11/18/2016 08/31/2017 12/01/2017 Protein, Total 6.3 - 8.0 g/dL 7.9 7.7 Albumin 3.9 - 4.9 g/dL 4.3 4.4 Calcium 8.5 - 10.2 mg/dL 10.1 10.1 Bilirubin, Total 0.2 - 1.3 mg/dL 0.3 0.3 Alkaline Phosphatase 32 - 117 U/L 90 83 AST 13 - 35 U/L 18 19 Glucose 74 - 99 mg/dL 104 (H) 105 (H) BUN 7 - 21 mg/dL 10 13 Creatinine 0.58 - 0.96 mg/dL 0.84 0.98 (H) Sodium 136 - 144 mmol/L 140 140 Potassium 3.7 - 5.1 mmol/L 4.1 3.2 (L) Chloride 97 - 105 mmol/L 98 100 CO2 22 - 30 mmol/L 26 24 Anion Gap 9 - 18 mmol/L 16 16 ALT 7 - 38 U/L 7 16 eGFR- >60 >60 eGFR-All Other Races . >60 57 Triglyceride <150 mg/dL 220 (H) 132 Cholesterol, Total <200 mg/dL 199 202 (H) HDL Cholesterol >39 mg/dL 40 (L) 42 VLDL Cholesterol <30 mg/dL 44 (H) 26 LDL Cholesterol <100 mg/dL 115 134 (H) Fasting Time hrs 14 8 TC:HDL Ratio <5.10 4.98 4.81 LDL:HDL Ratio <2.54 2.88 3.19 (H) Non HDL Cholesterol <130 mg/dL 159 160 (H) Hemoglobin A1C 4.3 - 5.6 % 5.6 5.5 Estimated Average Glucose mg/dL 114 111 TSH 0.400 - 5.500 uU/mL 4.200 4.890 5.330 Free T4 0.9 - 1.7 ng/dL 1.3 1.4 Free T3 2.3 - 4.1 pg/mL 2.8 ASSESSMENT AND PLAN: Encounter Diagnosis ICD-10-CM 1. Bipolar disorder, current episode manic without psychotic features, severe (HCC) F31.13 clonazePAM (KLONOPIN) 0.5 mg tablet 2. Skin lesions of face L98.9 CONSULT TO DERMATOLOGY muliple red spots with itching; some excoriated lesions from scratching; may have gotten worse because of sun and sweating; also a few nodular lesions on cheeks 3. Essential hypertension I10 4. Acquired hypothyroidism E03.9 Above issues addressed with patient. Patient involved in shared decision making for management of her medical issues. History and medications reviewed. Epic updated as needed Refills taken care of and meds adjusted as indicated after reviewed history, exam and labs. Health Maintenance reviewed. Updated record and/or ordered tests as recorded. Encouraged on efforts at healthy diet and regular exercise and adequate sleep. Stable with control of bipolar disorder and associated . No signs of diversion or abuse of medication(s); no adverse effects. Continue present management. The majority of the visit was spent counseling and/or coordinating care for the patient. Oxuq-gt-kype time was at least 20 minutes. Jose Finley MD CNOV Observed: 12/08/2017 Status: COMPLETED Source: [place] 11:40 AM [facility] REPOSITORY Office Visit (INTMWS) CELENA CENTENO ([id number]) 1950 F Date Time Provider Department 12/08/17 11:40 AM JOSE FINLEY During your visit today, we recorded the following information about you: Pulse Respiration Blood pressure Weight 60/minute 20/minute 124/62 65.8 kg Jose Finley MD 12/18/2017 12:43 AM Signed Patient presents with: Recheck: 6 month follow up SUBJECTIVE: Celena Centeno is a 66 year old year old lady here today for 6 month follow up appointment for review of medical conditions. Wants referral back to Dr. Carlos Fatima--saw for skin lesion on arm; now needs lesions on face evaluated. Noted nodular tender lesions on cheeks and between eyebrows. Red itchy rash too Like blisters around mouth sometimes [facility] evaluation--was rude and no better with treatment and follow ups. No change in soaps and shampoos. No new meds. PAST MEDICAL HISTORY Diagnosis Date - Acute gastritis without mention of hemorrhage - Acute myocardial infarction of other specified sites, episode of care unspecified Myocardial Infarction--DR RAY - Adenomatous colon polyp TA on Jun 2015 colonoscopy (Dr. 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 Davison - Severe vulvar dysplasia - Vitamin D Deficiency 08/20/2009 Current Outpatient Prescriptions: clopidogrel (PLAVIX) 75 mg tablet Take 1 tablet by mouth once daily. clonazePAM (KLONOPIN) 0.5 mg tablet TAKE 1 TABLET DAILY NEEDED levothyroxine (SYNTHROID) 50 mcg tablet Take 0.5 tablets by mouth daily before breakfast. (plus 25mcg pill every other day--in other words alternating 75 mcg with 50 mcg every other day) atorvastatin (LIPITOR) 40 mg tablet TAKE 1 TABLET EVERY DAY atenolol (TENORMIN) 25 mg tablet Take 1 tablet by mouth once daily. amLODIPine (NORVASC) 5 mg tablet Take 1 tablet by mouth once daily. nitroglycerin sublingual (NITROQUICK) 0.4 mg SL tablet Dissolve 1 tablet under the tongue as needed. DISSOLVE ON TONGUE FOR CHEST PAIN. IF NO PAIN RELIEF, CALL 911 sertraline (ZOLOFT) 100 mg tablet Take 1 tablet by mouth once daily. pantoprazole DR (PROTONIX) 20 mg tablet Take 1 tablet by mouth twice daily. polyethylene glycol 3350 (MIRALAX, GLYCOLAX) 17 gram/dose powder Take 17 g by mouth once daily. Use as needed. cholecalciferol, Vitamin D3, (VITAMIN D3) 50,000 unit cap capsule Take 1 capsule by mouth once every month. buPROPion (WELLBUTRIN) 100 mg tablet Take 1 tablet by mouth once daily. ferrous sulfate 325 mg (65 mg iron) tablet Take 1 tablet by mouth daily with breakfast. nystatin (MYCOSTATIN) powder Apply 1 application to affected area three times daily. aspirin, enteric coated (ECOTRIN LOW STRENGTH) 81 mg ORAL EC tablet Take 1 tablet by mouth once daily. atenolol (TENORMIN) 50 mg tablet Take 0.5 tablets by mouth once daily. (Patient taking differently: Take 50 mg by mouth once daily. ) No current facility-administered medications for this visit. OBJECTIVE: BP 124/62 Pulse 60 Resp 20 Wt 65.8 kg (145 lb) BMI 25.69 kg/m? Patient is alert, oriented times 3, no apparent distress, affect is bright, reactive. Last 5 Encounter BP Readings: Date: BP: 12/08/2017 124/62 11/23/2017 146/90 09/14/2017 120/78 05/30/2017 158/80 03/21/2017 144/82 Last 5 Encounter Wt Readings: Date: Wt: 12/08/2017 65.8 kg (145 lb) 11/23/2017 66.2 kg (146 lb) 09/14/2017 67.1 kg (148 lb) 05/30/2017 64.4 kg (142 lb) 03/21/2017 61.3 kg (135 lb 3.2 oz) Heart: Regular rate, rhythm, no murmurs, gallops, rubs. Lungs: Clear to auscultation, bilaterally, breathing non labored. Ext: No cyanosis, clubbing, or edema. Component Latest Ref Rng AND Units 11/18/2016 08/31/2017 12/01/2017 Protein, Total 6.3 - 8.0 g/dL 7.9 7.7 Albumin 3.9 - 4.9 g/dL 4.3 4.4 Calcium 8.5 - 10.2 mg/dL 10.1 10.1 Bilirubin, Total 0.2 - 1.3 mg/dL 0.3 0.3 Alkaline Phosphatase 32 - 117 U/L 90 83 AST 13 - 35 U/L 18 19 Glucose 74 - 99 mg/dL 104 (H) 105 (H) BUN 7 - 21 mg/dL 10 13 Creatinine 0.58 - 0.96 mg/dL 0.84 0.98 (H) Sodium 136 - 144 mmol/L 140 140 Potassium 3.7 - 5.1 mmol/L 4.1 3.2 (L) Chloride 97 - 105 mmol/L 98 100 CO2 22 - 30 mmol/L 26 24 Anion Gap 9 - 18 mmol/L 16 16 ALT 7 - 38 U/L 7 16 eGFR- >60 >60 eGFR-All Other Races . >60 57 Triglyceride <150 mg/dL 220 (H) 132 Cholesterol, Total <200 mg/dL 199 202 (H) HDL Cholesterol >39 mg/dL 40 (L) 42 VLDL Cholesterol <30 mg/dL 44 (H) 26 LDL Cholesterol <100 mg/dL 115 134 (H) Fasting Time hrs 14 8 TC:HDL Ratio <5.10 4.98 4.81 LDL:HDL Ratio <2.54 2.88 3.19 (H) Non HDL Cholesterol <130 mg/dL 159 160 (H) Hemoglobin A1C 4.3 - 5.6 % 5.6 5.5 Estimated Average Glucose mg/dL 114 111 TSH 0.400 - 5.500 uU/mL 4.200 4.890 5.330 Free T4 0.9 - 1.7 ng/dL 1.3 1.4 Free T3 2.3 - 4.1 pg/mL 2.8 ASSESSMENT AND PLAN: Encounter Diagnosis ICD-10-CM 1. Bipolar disorder, current episode manic without psychotic features, severe (HCC) F31.13 clonazePAM (KLONOPIN) 0.5 mg tablet 2. Skin lesions of face L98.9 CONSULT TO DERMATOLOGY muliple red spots with itching; some excoriated lesions from scratching; may have gotten worse because of sun and sweating; also a few nodular lesions on cheeks 3. Essential hypertension I10 4. Acquired hypothyroidism E03.9 Above issues addressed with patient. Patient involved in shared decision making for management of her medical issues. History and medications reviewed. Epic updated as needed Refills taken care of and meds adjusted as indicated after reviewed history, exam and labs. Health Maintenance reviewed. Updated record and/or ordered tests as recorded. Encouraged on efforts at healthy diet and regular exercise and adequate sleep. Stable with control of bipolar disorder and associated . No signs of diversion or abuse of medication(s); no adverse effects. Continue present management. The majority of the visit was spent counseling and/or coordinating care for the patient. Yxew-jk-fwbd time was at least 20 minutes. Jose Finley MD Referring Provider: SELF [200] Allergies As of Date: 12/08/2017 Noted Allergy Reaction CODEINE 10/11/2007 4 - Hives DARVON (PROPOXYPHENE HCL) 10/11/2007 4 - Hives MORPHINE 09/14/2017 14 - Other: See Comments Comments: Made tongue swell PENICILLINS 10/11/2007 10 - Anaphylaxis SIMVASTATIN 04/17/2012 14 - Other: See Comments Comments: elevated LFTS; had tolerated Lipitor for years without problem Date Reviewed: 12/08/2017 Reviewed by: Carly Dolan LPN - Fully Assessed Reason for Visit: Recheck [92] Cmt: 6 month follow up Primary Visit Diagnosis:Bipolar disorder, current episode manic without psychotic features, severe (HCC) [F31.13] Other Visit Diagnoses:Skin lesions of face [L98.9] Comment:muliple red spots with itching; some excoriated lesions from scratching; may have gotten worse because of sun and sweating; also a few nodular lesions on cheeks Essential hypertension [I10] Acquired hypothyroidism [E03.9] Order(s):clonazePAM (KLONOPIN) 0.5 mg tabletTake 1 tablet by mouth once daily as needed for up to 90 days.Disp: 30 tabletRfl: 2 CONSULT TO DERMATOLOGY [9006] Order #: [id number]: 1 Prescriptions as of 12/08/2017 Sig: CLONAZEPAM 0.5 MG TABLET Take 1 tablet by mouth once d* CLOPIDOGREL 75 MG TABLET Take 1 tablet by mouth once d* LEVOTHYROXINE 50 MCG TABLET Take 0.5 tablets by mouth nirmala* X ATORVASTATIN 40 MG TABLET TAKE 1 TABLET EVERY DAY ATENOLOL 25 MG TABLET Take 1 tablet by mouth once d* AMLODIPINE 5 MG TABLET Take 1 tablet by mouth once d* NITROGLYCERIN 0.4 MG SUBLINGU* Dissolve 1 tablet under the t* SERTRALINE 100 MG TABLET Take 1 tablet by mouth once d* PANTOPRAZOLE 20 MG TABLET,DEL* Take 1 tablet by mouth twice * POLYETHYLENE GLYCOL 3350 17 G* Take 17 g by mouth once daily* CHOLECALCIFEROL (VITAMIN D3) * Take 1 capsule by mouth once * BUPROPION HCL 100 MG TABLET Take 1 tablet by mouth once d* FERROUS SULFATE 325 MG (65 MG* Take 1 tablet by mouth daily * NYSTATIN 100,000 UNIT/GRAM TO* Apply 1 application to affect* * ASPIRIN 81 MG TABLET,DELAYED * Take 1 tablet by mouth once d* ATENOLOL 50 MG TABLET Take 0.5 tablets by mouth onc* Patient taking differently: Take 50 mg by mouth once dayne* Medication notes this encounter ATENOLOL 25 MG TABLET >> Carly Dolan LPN 12/08/2017 12:27 PM >> CARLY DOLAN LPN MonDec 08, 2017 12:27 PM Patient is taking Problem List As Of Date 12/08/2017 Noted Resolved Essential hypertension [I10] More... MIXED HYPERLIPIDEMIA [E78.2] More... BIPOLAR DISORDER NOS [F31.9] More... Hypothyroidism [E03.9] More... Acute myocardial infarction of other specified * 09/12/2016 More... DIVERTICULOSIS OF COLON W/O BLEED [K57.30] More... GENERAL OSTEOARTHROSIS [M15.9] More... IRRITABLE COLON [K58.9] INVALID FOR* ASCVD [I25.10] More... Vitamin D Deficiency [E55.9] INVALID FOR* Hypokalemia [E87.6] INVALID FOR* Anemia [D64.9] Acute gastritis without mention of hemorrhage [*INVALID FOR* Duodenitis without mention of hemorrhage [K29.8*INVALID FOR* Diarrhea [R19.7] INVALID FOR* Family history of malignant neoplasm of gastroi*INVALID FOR* Pyoderma, unspecified [L08.0] INVALID FOR* Acne Vulgaris: Inflammatory Grade III to IV: no*INVALID FOR* Excoriations [T14.8XXA] INVALID FOR* Xerosis cutis [L85.3] INVALID FOR* Solar lentigines [L81.4] INVALID FOR* Actinic Damage//Sun-damaged skin [L57.8] INVALID FOR* CAD (coronary artery disease), [place] coronary *INVALID FOR* Priority: A More... 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 Fatty infiltration of liver [K76.0] INVALID FOR* Acne Scars [L90.5] INVALID FOR* IBS (irritable bowel syndrome) [K58.9] PAD (peripheral artery disease) [I73.9] INVALID FOR* Sciatica due to displacement of lumbar interver* More... GERD (gastroesophageal reflux disease) [K21.9] INVALID FOR* Iron deficiency anemia due to chronic blood los*INVALID FOR*06/24/2015 Family history of colon cancer [Z80.0] INVALID FOR*06/24/2015 MGUS (monoclonal gammopathy of unknown signific*INVALID FOR* Iron deficiency anemia [D50.9] INVALID FOR* Scoliosis of lumbar spine [M41.9] INVALID FOR* S/P lumbar spinal fusion [Z98.1] INVALID FOR* Prescriptions ordered this encounter Disp Refills Start End CLONAZEPAM 0.5 MG TABLET 30 t* 2 12/08/2017 03/08/2018 Class: Print RX Cmt: Our records show that RX with 1 RF was sent in October but your records do not reflect that. This RX has refills to last 90 days total (each RX lasts 30 days with 3 RFs to last 90 days) Route: ORAL Sig: Take 1 tablet by mouth once daily as needed for up to 90 days. Medications Discontinued During This Encounter clonazePAM (KLONOPIN) 0.5 mg tablet 30 t* 1 11/02/2017 12/08/2017 Class: Print RX Cmt: [facility] patient. If too soon, we will put new RX on hold for next cycle. Sig: TAKE 1 TABLET DAILY NEEDED Disc: Reason for discontinue is not on file. Encounter Status:Closed by JOSE FINLEY MD on 7/2/18 HEMOGLOBIN A1C Collected: 12/01/2017 Status: F Source: [place] 12:30 PM [facility] REPOSITORY TYPE CODE TESTS RESULT OUT OF REFERENCE UNITS RANGE LAB HGBA1C 4.3-5.6 % Hemoglobin A1c 5.5 LAB HBA0 mg/dL Est. Average Glucose 111 Result Comment: eAG: (Estimated average glucose) is a calculated value from HgbA1c and is leasing representative of the average blood glucose level in the last 2-3 month period. Performed By: #### HBA1C #### [facility] [address] [address] TSH Collected: 12/01/2017 Status: F Source: [place] 12:29 PM [facility] REPOSITORY TYPE CODE TESTS RESULT OUT OF RANGE REFERENCE UNITS LAB TSH 0.400-5.500 uU/mL TSH 5.330 Performed By: #### TSH, FREET3, FT4 #### [facility] [address] [id number] FREE T3 Collected: 12/01/2017 Status: F Source: [place] 12:29 PM [facility] REPOSITORY TYPE CODE TESTS RESULT OUT OF RANGE REFERENCE UNITS LAB FREET3 2.3-4.1 pg/mL Free T3 2.8 Performed By: #### TSH, FREET3, FT4 #### [facility] [address] [id number] FREE T4 Collected: 12/01/2017 Status: F Source: [place] 12:29 PM [facility] REPOSITORY TYPE CODE TESTS RESULT OUT OF RANGE REFERENCE UNITS LAB FT4 0.9-1.7 ng/dL Free T4 1.4 Performed By: #### TSH, FREET3, FT4 #### [facility] [address] [place], [place] [address] ALLIED HEALTH Observed: 11/23/2017 Status: COMPLETED Source: [place] 5:13 PM [facility] REPOSITORY HNO ID: [id number] Author: Esequiel (Rt) Cesar Mandel Service: (none) Author Type: Security Dispatcher Type: Allied Health Filed: 11/23/2017 5:13 PM Note Text: Radiology Service Progress Note PATIENT NAME: Celena Centeno DATE OF SERVICE: November 23, 2017 TIME: 5:13 PM PATIENT IDENTITY VERIFICATION COMPLETED USING TWO (2) METHODS: Patient confirmed name verbally and ID band matches.. PATIENT GENDER DATA: Female. status: : No status: NO. PATIENT RELEVANT IMPLANT DATA REVIEWED: Not Applicable RADIOLOGY DEPARTMENT: General X-ray: Exam(s) Completed: Spine X-Ray(s): Lumbar AP / LAT / L5-S1 PERIPHERAL IV DATA: Not applicable SIGNED BY: RT Kinga November 23, 2017 5:13 PM XR LUMBAR 2V AP/LAT Observed: 11/23/2017 Status: F Source: [place] 5:11 PM [facility] REPOSITORY * * *Final Report* * * DATE OF EXAM: Nov 23 2017 5:11PM FVX [id number] - XR LUMBAR 2V AP/LAT / PROCEDURE REASON: Scoliosis, unspecified * * * * Physician Interpretation * * * * Clinical: Back pain Technique:3 views of the lumbar spine COMPARISON: 11/28/2016 RESULT: No evidence of acute fracture or subluxation is seen. There is no evidence for spondylolysis or spondylolisthesis. The vertebral body height and discs spaces demonstrates posterior fusion of L2-L5. Interbody grafts are noted at L2/L3 L3/L4. Interpedicular screws are present from L2 through L5. The alignment is grossly normal and the vertebral body heights are preserved. There is mild levoscoliosis. Extensive atherosclerosis is seen in the aorta. IMPRESSION: Multilevel degenerative disc disease with L2-L5 fusion and mild scoliosis as well as evidence of atherosclerosis without significant interval change. Exhaust Worker: PSCB Transcribe Date/Time: Nov 23 2017 6:01P Dictated by : SUE TAVERA MD This examination was interpreted and the report reviewed and electronically signed by: SUE TAVREA MD on Nov 23 2017 6:02PM EST [id number] PROGRESS Observed: 11/23/2017 Status: COMPLETED Source: [place] 3:47 PM [facility] REPOSITORY HNO ID: [id number] Author: Ayo Hurtado Service: (none) Author Type: Physician Type: Progress Notes Filed: 11/23/2017 4:56 PM Note Text: SPINE SURGERY ESTABLISHED DATE OF SERVICE: 11/23/2017 DATE OF LAST VISIT: 11/28/2016 SUBJECTIVE: HPI:Celena Centeno is a 66 year old female presenting with spouse. She is s/p L2-5 instrumented fusion, right L2-3, 3-4 laminotomy and facetectomy on 09/13/16 and s/p L2-3, 3-4 lateral interbody fusion on 09/09/16. She has been doing very well. She has some soreness in the back when she overdoes it with activity such as planting nova. She has some pain into the buttocks at times. She has numbness in the left anterior thigh since her vascular procedure. No other leg pain. No new weakness. Nonsmoker. She is walking and moving around well. PREVIOUS CONSERVATIVE TREATMENTS: Analgesics AMBULATORY STATUS: Independent Community Distances REVIEW OF SYSTEMS: GENERAL: No weight loss or malaise MUSCULOSKELETAL: Negative for joint pain, swelling or muscle pain NEURO: No history of headaches, syncope, paralysis, seizures or tremors MEDICATIONS: clonazePAM (KLONOPIN) 0.5 mg tablet TAKE 1 TABLET DAILY NEEDED levothyroxine (SYNTHROID) 50 mcg tablet Take 0.5 tablets by mouth daily before breakfast. (plus 25mcg pill every other day--in other words alternating 75 mcg with 50 mcg every other day) atorvastatin (LIPITOR) 40 mg tablet TAKE 1 TABLET EVERY DAY atenolol (TENORMIN) 25 mg tablet Take 1 tablet by mouth once daily. amLODIPine (NORVASC) 5 mg tablet Take 1 tablet by mouth once daily. nitroglycerin sublingual (NITROQUICK) 0.4 mg SL tablet Dissolve 1 tablet under the tongue as needed. DISSOLVE ON TONGUE FOR CHEST PAIN. IF NO PAIN RELIEF, CALL 911 sertraline (ZOLOFT) 100 mg tablet Take 1 tablet by mouth once daily. pantoprazole DR (PROTONIX) 20 mg tablet Take 1 tablet by mouth twice daily. polyethylene glycol 3350 (MIRALAX, GLYCOLAX) 17 gram/dose powder Take 17 g by mouth once daily. Use as needed. atenolol (TENORMIN) 50 mg tablet Take 0.5 tablets by mouth once daily. cholecalciferol, Vitamin D3, (VITAMIN D3) 50,000 unit cap capsule Take 1 capsule by mouth once every month. buPROPion (WELLBUTRIN) 100 mg tablet Take 1 tablet by mouth once daily. ferrous sulfate 325 mg (65 mg iron) tablet Take 1 tablet by mouth daily with breakfast. clopidogrel (PLAVIX) 75 mg tablet Take 1 tablet by mouth once daily. nystatin (MYCOSTATIN) powder Apply 1 application to affected area three times daily. aspirin, enteric coated (ECOTRIN LOW STRENGTH) 81 mg ORAL EC tablet Take 1 tablet by mouth once daily. OBJECTIVE: PHYSICAL EXAM: BP 146/90 Pulse 51 Temp 97 Resp 16 Wt 146 lb (66.2kg) SpO2 95% GENERAL APPEARANCE: Well nourished, well developed, and no apparent distress. NEURO PSYCH: Patient oriented to person, place, and time. Mood pleasant. Benign affect. MUSCULOSKELETAL VISUAL INSPECTION CERVICAL: WNL THORACIC: WNL LUMBAR: WNL MOTOR: 5/5 in all muscle groups. SENSORY: Normal sensory exam GAIT: Normal. NEURO TESTS: None DATA REVIEW:Diagnostic tests reviewed for today's visit, films/specimens were personally reviewed by me: [facility] records reviewed Kellie Lamb PA-C ASSESSMENT/PLAN Doing well 1. Imaging: Lumbar X-Ray 2. Follow up: PRN I reviewed the information obtained and documented by the physician orthodontist assistant. I examined the patient and evaluated all available films and pertinent documents. We discussed the case and I agree with the plans as outlined in this note. SIGNATURE: Ayo Hurtado MD PATIENT NAME: Celena Centeno DATE: November 23, 2017 TIME: 3:47 PM PAGER: PAPA Observed: 11/23/2017 Status: COMPLETED Source: [place] 3:40 PM [facility] REPOSITORY Office Visit (NSFRVW) CELENA CENTENO ([id number]) 1950 F Date Time Provider Department 11/23/17 3:40 PM AYO HURTADORVW During your visit today, we recorded the following information about you: Temperature Pulse Respiration Blood pressure 97 degrees 51/minute 16/minute 146/90 Weight 66.2 kg Ayo Hurtado MD 11/23/2017 4:56 PM Signed SPINE SURGERY ESTABLISHED DATE OF SERVICE: 11/23/2017 DATE OF LAST VISIT: 11/28/2016 SUBJECTIVE: HPI:Celena Centeno is a 66 year old female presenting with spouse. She is s/p L2-5 instrumented fusion, right L2-3, 3-4 laminotomy and facetectomy on 09/13/16 and s/p L2-3, 3-4 lateral interbody fusion on 09/09/16. She has been doing very well. She has some soreness in the back when she overdoes it with activity such as planting nova. She has some pain into the buttocks at times. She has numbness in the left anterior thigh since her vascular procedure. No other leg pain. No new weakness. Nonsmoker. She is walking and moving around well. PREVIOUS CONSERVATIVE TREATMENTS: Analgesics AMBULATORY STATUS: Independent Community Distances REVIEW OF SYSTEMS: GENERAL: No weight loss or malaise MUSCULOSKELETAL: Negative for joint pain, swelling or muscle pain NEURO: No history of headaches, syncope, paralysis, seizures or tremors MEDICATIONS: clonazePAM (KLONOPIN) 0.5 mg tablet TAKE 1 TABLET DAILY NEEDED levothyroxine (SYNTHROID) 50 mcg tablet Take 0.5 tablets by mouth daily before breakfast. (plus 25mcg pill every other day--in other words alternating 75 mcg with 50 mcg every other day) atorvastatin (LIPITOR) 40 mg tablet TAKE 1 TABLET EVERY DAY atenolol (TENORMIN) 25 mg tablet Take 1 tablet by mouth once daily. amLODIPine (NORVASC) 5 mg tablet Take 1 tablet by mouth once daily. nitroglycerin sublingual (NITROQUICK) 0.4 mg SL tablet Dissolve 1 tablet under the tongue as needed. DISSOLVE ON TONGUE FOR CHEST PAIN. IF NO PAIN RELIEF, CALL 911 sertraline (ZOLOFT) 100 mg tablet Take 1 tablet by mouth once daily. pantoprazole DR (PROTONIX) 20 mg tablet Take 1 tablet by mouth twice daily. polyethylene glycol 3350 (MIRALAX, GLYCOLAX) 17 gram/dose powder Take 17 g by mouth once daily. Use as needed. atenolol (TENORMIN) 50 mg tablet Take 0.5 tablets by mouth once daily. cholecalciferol, Vitamin D3, (VITAMIN D3) 50,000 unit cap capsule Take 1 capsule by mouth once every month. buPROPion (WELLBUTRIN) 100 mg tablet Take 1 tablet by mouth once daily. ferrous sulfate 325 mg (65 mg iron) tablet Take 1 tablet by mouth daily with breakfast. clopidogrel (PLAVIX) 75 mg tablet Take 1 tablet by mouth once daily. nystatin (MYCOSTATIN) powder Apply 1 application to affected area three times daily. aspirin, enteric coated (ECOTRIN LOW STRENGTH) 81 mg ORAL EC tablet Take 1 tablet by mouth once daily. OBJECTIVE: PHYSICAL EXAM: BP 146/90 Pulse 51 Temp 97 Resp 16 Wt 146 lb (66.2kg) SpO2 95% GENERAL APPEARANCE: Well nourished, well developed, and no apparent distress. NEURO PSYCH: Patient oriented to person, place, and time. Mood pleasant. Benign affect. MUSCULOSKELETAL VISUAL INSPECTION CERVICAL: WNL THORACIC: WNL LUMBAR: WNL MOTOR: 5/5 in all muscle groups. SENSORY: Normal sensory exam GAIT: Normal. NEURO TESTS: None DATA REVIEW:Diagnostic tests reviewed for today's visit, films/specimens were personally reviewed by me: [facility] records reviewed Kellie Lamb PA-C ASSESSMENT/PLAN Doing well 1. Imaging: Lumbar X-Ray 2. Follow up: PRN I reviewed the information obtained and documented by the physician orthodontist assistant. I examined the patient and evaluated all available films and pertinent documents. We discussed the case and I agree with the plans as outlined in this note. SIGNATURE: Ayo Hutrado MD PATIENT NAME: Celena Centeno DATE: November 23, 2017 TIME: 3:47 PM PAGER: Referring Provider: SELF [[id number]] Allergies As of Date: 11/23/2017 Noted Allergy Reaction CODEINE 10/11/2007 4 - Hives DARVON (PROPOXYPHENE HCL) 10/11/2007 4 - Hives MORPHINE 09/14/2017 14 - Other: See Comments Comments: Made tongue swell PENICILLINS 10/11/2007 10 - Anaphylaxis SIMVASTATIN 04/17/2012 14 - Other: See Comments Comments: elevated LFTS; had tolerated Lipitor for years without problem Date Reviewed: 11/23/2017 Reviewed by: Kellie Bowens (Pa) - Fully Assessed Reason for Visit: Established Patient [[id number]] Cmt: scoliosis Primary Visit Diagnosis:Scoliosis of lumbar spine, unspecified scoliosis type [M41.9] Order(s):XR LUMBAR LIMITED 2V AP/LAT [[id number]] Order #: [id number] FUTURE Prescriptions as of 11/23/2017 Sig: CLONAZEPAM 0.5 MG TABLET TAKE 1 TABLET DAILY NEEDED LEVOTHYROXINE 50 MCG TABLET Take 0.5 tablets by mouth nirmala* ATORVASTATIN 40 MG TABLET TAKE 1 TABLET EVERY DAY ATENOLOL 25 MG TABLET Take 1 tablet by mouth once d* AMLODIPINE 5 MG TABLET Take 1 tablet by mouth once d* NITROGLYCERIN 0.4 MG SUBLINGU* Dissolve 1 tablet under the t* SERTRALINE 100 MG TABLET Take 1 tablet by mouth once d* PANTOPRAZOLE 20 MG TABLET,DEL* Take 1 tablet by mouth twice * POLYETHYLENE GLYCOL 3350 17 G* Take 17 g by mouth once daily* ATENOLOL 50 MG TABLET Take 0.5 tablets by mouth onc* Patient taking differently: Take 50 mg by mouth once dayne* CHOLECALCIFEROL (VITAMIN D3) * Take 1 capsule by mouth once * BUPROPION HCL 100 MG TABLET Take 1 tablet by mouth once d* FERROUS SULFATE 325 MG (65 MG* Take 1 tablet by mouth daily * CLOPIDOGREL 75 MG TABLET Take 1 tablet by mouth once d* NYSTATIN 100,000 UNIT/GRAM TO* Apply 1 application to affect* * ASPIRIN 81 MG TABLET,DELAYED * Take 1 tablet by mouth once d* Problem List As Of Date 11/23/2017 Noted Resolved Essential hypertension [I10] More... MIXED HYPERLIPIDEMIA [E78.2] More... BIPOLAR DISORDER NOS [F31.9] More... Hypothyroidism [E03.9] More... Acute myocardial infarction of other specified * 09/12/2016 More... DIVERTICULOSIS OF COLON W/O BLEED [K57.30] More... GENERAL OSTEOARTHROSIS [M15.9] More... IRRITABLE COLON [K58.9] INVALID FOR* ASCVD [I25.10] More... Vitamin D Deficiency [E55.9] INVALID FOR* Hypokalemia [E87.6] INVALID FOR* Anemia [D64.9] Acute gastritis without mention of hemorrhage [*INVALID FOR* Duodenitis without mention of hemorrhage [K29.8*INVALID FOR* Diarrhea [R19.7] INVALID FOR* Family history of malignant neoplasm of gastroi*INVALID FOR* Pyoderma, unspecified [L08.0] INVALID FOR* Acne Vulgaris: Inflammatory Grade III to IV: no*INVALID FOR* Excoriations [T14.8XXA] INVALID FOR* Xerosis cutis [L85.3] INVALID FOR* Solar lentigines [L81.4] INVALID FOR* Actinic Damage//Sun-damaged skin [L57.8] INVALID FOR* CAD (coronary artery disease), [place] coronary *INVALID FOR* Priority: A More... 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 Fatty infiltration of liver [K76.0] INVALID FOR* Acne Scars [L90.5] INVALID FOR* IBS (irritable bowel syndrome) [K58.9] PAD (peripheral artery disease) [I73.9] INVALID FOR* Sciatica due to displacement of lumbar interver* More... GERD (gastroesophageal reflux disease) [K21.9] INVALID FOR* Iron deficiency anemia due to chronic blood los*INVALID FOR*06/24/2015 Family history of colon cancer [Z80.0] INVALID FOR*06/24/2015 MGUS (monoclonal gammopathy of unknown signific*INVALID FOR* Iron deficiency anemia [D50.9] INVALID FOR* Scoliosis of lumbar spine [M41.9] INVALID FOR* S/P lumbar spinal fusion [Z98.1] INVALID FOR* Disposition: Return if symptoms worsen or fail to improve. Follow-up and Disposition History Recorded Encounter Status:Closed by AYO HURTADO MD on 11/23/17 DEVINTOPATRICIA Observed: 11/21/2017 Status: COMPLETED Source: [place] 12:00 AM [facility] REPOSITORY Patient Outreach ([facility]) CELENA CENTENO ([id number]) 1950 F Date Time Provider Department 11/21/17 JOSE FINLEY [facility] During your visit today, we recorded the following information about you: Allergies As of Date: 11/21/2017 Noted Allergy Reaction CODEINE 10/11/2007 4 - Hives DARVON (PROPOXYPHENE HCL) 10/11/2007 4 - Hives MORPHINE 09/14/2017 14 - Other: See Comments Comments: Made tongue swell PENICILLINS 10/11/2007 10 - Anaphylaxis SIMVASTATIN 04/17/2012 14 - Other: See Comments Comments: elevated LFTS; had tolerated Lipitor for years without problem Date Reviewed: 09/14/2017 Reviewed by: Mary Ann Henao LPN - Fully Assessed Visit Diagnosis:Medication management [Z79.899] Order(s):HGB A1C [[id number]] Order #: [id number] FUTURE Prescriptions as of 11/21/2017 Sig: X CLONAZEPAM 0.5 MG TABLET TAKE 1 TABLET DAILY NEEDED LEVOTHYROXINE 50 MCG TABLET Take 0.5 tablets by mouth nirmala* X ATORVASTATIN 40 MG TABLET TAKE 1 TABLET EVERY DAY ATENOLOL 25 MG TABLET Take 1 tablet by mouth once d* AMLODIPINE 5 MG TABLET Take 1 tablet by mouth once d* NITROGLYCERIN 0.4 MG SUBLINGU* Dissolve 1 tablet under the t* SERTRALINE 100 MG TABLET Take 1 tablet by mouth once d* X PANTOPRAZOLE 20 MG TABLET,DEL* Take 1 tablet by mouth twice * POLYETHYLENE GLYCOL 3350 17 G* Take 17 g by mouth once daily* X ATENOLOL 50 MG TABLET Take 0.5 tablets by mouth onc* X CHOLECALCIFEROL (VITAMIN D3) * Take 1 capsule by mouth once * Patient not taking: Reported on 03/19/2018 X BUPROPION HCL 100 MG TABLET Take 1 tablet by mouth once d* X FERROUS SULFATE 325 MG (65 MG* Take 1 tablet by mouth daily * X CLOPIDOGREL 75 MG TABLET Take 1 tablet by mouth once d* NYSTATIN 100,000 UNIT/GRAM TO* Apply 1 application to affect* * ASPIRIN 81 MG TABLET,DELAYED * Take 1 tablet by mouth once d* Problem List As Of Date 11/21/2017 Noted Resolved Essential hypertension [I10] More... MIXED HYPERLIPIDEMIA [E78.2] More... BIPOLAR DISORDER NOS [F31.9] More... Hypothyroidism [E03.9] More... Acute myocardial infarction of other specified * 09/12/2016 More... DIVERTICULOSIS OF COLON W/O BLEED [K57.30] More... GENERAL OSTEOARTHROSIS [M15.9] More... IRRITABLE COLON [K58.9] INVALID FOR* ASCVD [I25.10] More... Vitamin D Deficiency [E55.9] INVALID FOR* Hypokalemia [E87.6] INVALID FOR* Anemia [D64.9] Acute gastritis without mention of hemorrhage [*INVALID FOR* Duodenitis without mention of hemorrhage [K29.8*INVALID FOR* Diarrhea [R19.7] INVALID FOR* Family history of malignant neoplasm of gastroi*INVALID FOR* Pyoderma, unspecified [L08.0] INVALID FOR* Acne Vulgaris: Inflammatory Grade III to IV: no*INVALID FOR* Excoriations [T14.8XXA] INVALID FOR* Xerosis cutis [L85.3] INVALID FOR* Solar lentigines [L81.4] INVALID FOR* Actinic Damage//Sun-damaged skin [L57.8] INVALID FOR* CAD (coronary artery disease), [place] coronary *INVALID FOR* Priority: A More... 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 Fatty infiltration of liver [K76.0] INVALID FOR* Acne Scars [L90.5] INVALID FOR* IBS (irritable bowel syndrome) [K58.9] PAD (peripheral artery disease) [I73.9] INVALID FOR* Sciatica due to displacement of lumbar interver* More... GERD (gastroesophageal reflux disease) [K21.9] INVALID FOR* Iron deficiency anemia due to chronic blood los*INVALID FOR*06/24/2015 Family history of colon cancer [Z80.0] INVALID FOR*06/24/2015 MGUS (monoclonal gammopathy of unknown signific*INVALID FOR* Iron deficiency anemia [D50.9] INVALID FOR* Scoliosis of lumbar spine [M41.9] INVALID FOR* S/P lumbar spinal fusion [Z98.1] INVALID FOR* Encounter Status:Closed by JEN CARPENTERUSER on 03/30/18 PROGRESS Observed: 09/14/2017 Status: COMPLETED Source: [place] 2:04 PM [facility] REPOSITORY HNO ID: [id number] Author: Marleni Guerra) [place]ilson Service: (none) Author Type: Nurse Specialist Type: Progress Notes Filed: 09/14/2017 2:39 PM Note Text: OUTPATIENT VISIT DATE September 14, 2017 OUTPATIENT VISIT TYPE ESTABLISHED PRIMARY CARE PHYSICIAN: Jose Finley MD CHIEF COMPLAINT: Patient presents with: F/U 3 Month History of Present Illness: Celena Centeno is a 66 year old female who was last seen 05/2017 by Jose Finley MD She has been seen in the past for ACTIVE PROBLEM LIST Essential Hypertension Mixed Hyperlipidemia Bipolar Disorder, Unspecified (Hcc) Hypothyroidism Diverticulosis of Colon (Without Mention of Hemorrhage) Generalized Osteoarthrosis, Unspecified Site Irritable Bowel Syndrome Unspecified Cardiovascular Disease Vitamin D Deficiency Hypokalemia Anemia Acute Gastritis Without Mention of Hemorrhage Duodenitis Without Mention of Hemorrhage Diarrhea Family History of Malignant Neoplasm of Gastrointestinal Tract Pyoderma, Unspecified Acne Vulgaris: Inflammatory Grade III to IV: nodulocystic; adult type Excoriations Xerosis Cutis Solar lentigines Actinic Damage//Sun-damaged skin Cad (Coronary Artery Disease), [place] Coronary Artery Coronary Stent Carcinoma in Situ, Vulva Severe Vulvar Dysplasia Elevated Lfts Fatty Infiltration of Liver Acne Scars Ibs (Irritable Bowel Syndrome) Pad (Peripheral Artery Disease) (Hcc) 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 She reports since last here she reduced her thyroid dose. She reports hair loss on the higher dose. Currently taking 50 ?g every other day for about 6 weeks. Reports feeling improved with this.Weight is a bit increased. Hypothyroidism. She is without Denies fatigue, cold intolerance, constipation, swelling in feet, dry skin, trouble swallowing and neck pain/pressure. Has had weight gain but limited exercise recently. TSH (uU/mL) Date Value 08/31/2017 4.890 11/18/2016 4.200 ) Follows with primary regarding bipolar. She did have a counselor previously but he moved to [place]. Feels she is doing well on current medications. She follows up with Dr.Moodispaw [facility] cardiology for coronary artery disease peripheral arterial disease. HTN: Ms. Centeno indicates that she is feeling well and without headache, chest pain, palpitations, dyspnea, peripheral edema, orthopnea, fatigue and PND. Last 3 Encounter BP Readings: Date: BP: 09/14/2017 120/78 05/30/2017 158/80 03/21/2017 144/82 Hyperlipidemia. Ms. Centeno reports doing well on current therapy. Does think that she may have missed a few dose of medication.No AE noted. Her most recent lipid panels are: Cholesterol, Total (mg/dL) Date Value 08/31/2017 202 11/18/2016 199 HDL Cholesterol (mg/dL) Date Value 08/31/2017 42 11/18/2016 40 LDL Cholesterol (mg/dL) Date Value 08/31/2017 134 11/18/2016 115 Triglyceride (mg/dL) Date Value 08/31/2017 132 11/18/2016 220 Anemia currently controlled on iron supplementation. No recent hospital or ED visits. No new medical problems or medications. Able to obtain medications. No problems with taking medications or note side effects. PAST MEDICAL HISTORY Diagnosis Date - Acute gastritis without mention of hemorrhage - Acute myocardial infarction of other specified sites, episode of care unspecified Myocardial Infarction--DR RAY - Adenomatous colon polyp TA on Jun 2015 colonoscopy (Dr. 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 Davison - Severe vulvar dysplasia - Vitamin D Deficiency 08/20/2009 PAST SURGICAL HISTORY Procedure Laterality Date - COLONOSCOP W/ OR W/O [facility] SPEC 06/24/15 Colonoscopy - COLONOSCOP W/ OR W/O [facility] SPEC 03/14/2017 Colonoscopy - COLONOSCOPY 09/06/02 Normal - [facility] - COLONOSCOPY W/BX 04/20/10 - DANDC, DIAG AND/OR THERAPEUTIC 1972 Dilation AND curettage - EGD 08/30/02 small hiatal hernia - [facility] - EGD W/O [facility]SH SPECIMEN W/BX 04/20/10 - EGD W/O OR W/BRUSH/WASH 06/24/15 EGD - PART SIMPLE REMV VULVA 10/21/2010 Partial simple posterior vulvectomy and anterior vulvar biopsy - PAST SURGICAL HISTORY OF 05/1973 left knee surgery cartilage removed from knee - PAST SURGICAL HISTORY OF 05/19/1997 Stent inserted right coronary artery - PAST SURGICAL HISTORY OF 09/2002 [facility] left hand surgery - PAST SURGICAL HISTORY OF 2008 thumb surgery left hand - PAST SURGICAL HISTORY OF 2007 left knee surgery - PAST SURGICAL HISTORY OF Reoperation to release adhesions - REVSC OPN/PRQ ILIAC ART W/STNT PLMT AND ANGIOP UNI 06-05-13 right leg - THROMBOENDARTECTMY FEMORAL COMMON 08-15-13 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 - THROMBOENDARTECTMY ILIOFEMORAL Left 02-01-16 - TOTAL ABDOM HYSTERECTOMY 1975 Hysterectomy, DOROTHY, BSO;Fibroids/infection FAMILY HISTORY Problem Relation Age of Onset - Breast Cancer Mother - Alzheimer's Disease Mother - Heart Mother - Colon Cancer Mother was diagnosed around late 60's - Heart Father ID at 36 yo; when mom was 3 months - bladder cancer [OTHER] Brother - Diabetes Brother - Stroke Brother 1/2 brother - Heart Brother diabetes; had 4 vessel CABG 09/2011; bladder cancer - Coronary Artery Disease Paternal Uncle all 5 uncles had ID's in their early 40's - Coronary Artery Disease Paternal Uncle - Coronary Artery Disease Paternal Uncle - Coronary Artery Disease Paternal Uncle - Coronary Artery Disease Paternal Uncle Social History Substance Use Topics - Smoking status: Former Smoker Packs/day: 0.50 Years: 30.00 Types: Cigarettes Quit date: 06/19/2002 - Smokeless tobacco: Never Used - Alcohol use Yes Comment: socially ALLERGIES: ALLERGIES Allergen Reactions - Codeine Hives - Darvon [Propoxyphen* Hives - Morphine Other: See Comments Made tongue swell - Penicillins Anaphylaxis - Simvastatin Other: See Comments elevated LFTS; had tolerated Lipitor for years without problem MEDICATIONS clonazePAM (KLONOPIN) 0.5 mg tablet TAKE 1 TABLET DAILY NEEDED atorvastatin (LIPITOR) 40 mg tablet TAKE 1 TABLET EVERY DAY nitroglycerin sublingual (NITROQUICK) 0.4 mg SL tablet Dissolve 1 tablet under the tongue as needed. DISSOLVE ON TONGUE FOR CHEST PAIN. IF NO PAIN RELIEF, CALL 911 levothyroxine (SYNTHROID) 50 mcg tablet Take 1 tablet by mouth daily before breakfast. (plus 25mcg pill every other day--in other words alternating 75 mcg with 50 mcg every other day) sertraline (ZOLOFT) 100 mg tablet Take 1 tablet by mouth once daily. pantoprazole DR (PROTONIX) 20 mg tablet Take 1 tablet by mouth twice daily. polyethylene glycol 3350 (MIRALAX, GLYCOLAX) 17 gram/dose powder Take 17 g by mouth once daily. Use as needed. cholecalciferol, Vitamin D3, (VITAMIN D3) 50,000 unit cap capsule Take 1 capsule by mouth once every month. buPROPion (WELLBUTRIN) 100 mg tablet Take 1 tablet by mouth once daily. ferrous sulfate 325 mg (65 mg iron) tablet Take 1 tablet by mouth daily with breakfast. clopidogrel (PLAVIX) 75 mg tablet Take 1 tablet by mouth once daily. nystatin (MYCOSTATIN) powder Apply 1 application to affected area three times daily. atenolol (TENORMIN) 25 mg tablet Take 1 tablet by mouth once daily. amLODIPine (NORVASC) 5 mg tablet Take 1 tablet by mouth once daily. atenolol (TENORMIN) 50 mg tablet Take 0.5 tablets by mouth once daily. aspirin, enteric coated (ECOTRIN LOW STRENGTH) 81 mg ORAL EC tablet Take 1 tablet by mouth once daily. REVIEW OF SYSTEMS: GENERAL: Negative for: Weight loss or gain, Fever or Chills, Weakness and Sleep difficulties. Physical Examination: BP 120/78 Pulse 56 Resp 14 Wt 148 lb (67.1kg) Extended Vitals not filed for this encounter. General appearance: Well appearing, alert, in no acute distress, well-hydrated, well nourished. Skin: Skin color, texture, turgor normal, no suspicious rashes or lesions Neck: Supple, no adenopathy; thyroid symmetric, normal size, no bruits Lungs: Lungs clear to auscultation. No wheezing, rhonchi, rales Heart: RRR without murmur, gallop, or rubs. Abdomen: Abdomen soft, non-tender. Bowel sounds normal. No masses, organomegaly Extremities: No edema, skin discoloration, clubbing or cyanosis. Good capillary refill. Peripheral pulses: Normal Neuro: Gait normal.Sensation grossly intact. Reviewed chart, outside records, tests I personally interviewed, confirmed and edited the above information if obtained by others. TESTING: Glucose (mg/dL) Date Value 08/31/2017 105 Potassium (mmol/L) Date Value 08/31/2017 3.2 Sodium (mmol/L) Date Value 08/31/2017 140 Chloride (mmol/L) Date Value 08/31/2017 100 CO2 (mmol/L) Date Value 08/31/2017 24 Creatinine (mg/dL) Date Value 08/31/2017 0.98 BUN (mg/dL) Date Value 08/31/2017 13 Anion Gap (mmol/L) Date Value 08/31/2017 16 Calcium (mg/dL) Date Value 08/31/2017 10.1 Glucose (mg/dL) Date Value 08/31/2017 105 Potassium (mmol/L) Date Value 08/31/2017 3.2 Sodium (mmol/L) Date Value 08/31/2017 140 Chloride (mmol/L) Date Value 08/31/2017 100 CO2 (mmol/L) Date Value 08/31/2017 24 Creatinine (mg/dL) Date Value 08/31/2017 0.98 BUN (mg/dL) Date Value 08/31/2017 13 Anion Gap (mmol/L) Date Value 08/31/2017 16 Calcium (mg/dL) Date Value 08/31/2017 10.1 Protein, Total (g/dL) Date Value 08/31/2017 7.7 Albumin (g/dL) Date Value 08/31/2017 4.4 Bilirubin, Total (mg/dL) Date Value 08/31/2017 0.3 Alkaline Phosphatase (U/L) Date Value 08/31/2017 83 AST (U/L) Date Value 08/31/2017 19 ALT (U/L) Date Value 08/31/2017 16 Hemoglobin (g/dL) Date Value 08/31/2017 14.1 Hematocrit (%) Date Value 08/31/2017 43.4 WBC (k/uL) Date Value 08/31/2017 11.22 Cholesterol, Total (mg/dL) Date Value 08/31/2017 202 HDL Cholesterol (mg/dL) Date Value 08/31/2017 42 LDL Cholesterol (mg/dL) Date Value 08/31/2017 134 Triglyceride (mg/dL) Date Value 08/31/2017 132 Hemoglobin A1C Date Value Ref Range Status 11/18/2016 5.6 4.3 - 5.6 % Final 07/29/2016 5.8 (H) 4.3 - 5.6 % Final Comment: [place] [employer] guidelines indicate that patients with HgbA1c in the range 5.7-6.4% are at increased risk for development of diabetes, and intervention by lifestyle modification may be beneficial. HgbA1c greater or equal to 6.5% is considered diagnostic of diabetes. Ejection Fraction: No results found IMPRESSION: Ms. Centeno is a 66 year old woman presents for routine follow up visit. After my examination and review of data, I make the following recommendations. PLAN AND RECOMMENDATIONS: 1. Acquired hypothyroidism - ICD9: 244.9, ICD10: E03.9 (primary diagnosis) Has reduced dose due to adverse effects. Feeling improved with this change. We'll recheck labs in 6-12 weeks. - TSH BLD - T4 FREE/FREE THYROX - T3 FREE BLD - LEVOTHYROXINE 50 MCG TABLET 2. Acquired hypothyroidism - ICD9: 244.9, ICD10: E03.9 - TSH BLD - T4 FREE/FREE THYROX - T3 FREE BLD - LEVOTHYROXINE 50 MCG TABLET 3. Bipolar affective disorder, remission status unspecified (HCC) - ICD9: 296.80, ICD10: F31.9 Feels mood is currently well controlled on medications. She is following with primary physician regarding this. No outside physicians currently. 4. Essential hypertension - ICD9: 401.9, ICD10: I10 - good control - Continue current medication(s) - Encouraged dietary sodium restriction/DASH diet - Recommended regular aerobic exercise. - Goal of BP <130/80 5. Coronary artery disease involving [place] coronary artery of [place] heart without angina pectoris - ICD9: 414.01, ICD10: I25.10 Follows with [facility] On ASA, statin 6. Mixed hyperlipidemia - ICD9: 272.2, ICD10: E78.2 - suboptimal control - Continue current medication. 7. PAD (peripheral artery disease) ([facility]) - ICD9: 443.9, ICD10: I73.9 Follows with [facility] On ASA, statin 8. Anemia, unspecified type - ICD9: 285.9, ICD10: D64.9 Stable on current treatment, continue unchanged. Marleni Pyle APRN.EXERCISE SCIENCE INSTRUCTOR Take 25 mcg daily of levothyroxine. Remember to take atorvastatin once daily Recheck labs in 6-12 weeks. Tums daily 1200mg daily (2 tabs). Vitamin D daily 800 IU daily. Advised to go to ER if develops chest pain, shortness of breath, or severe worsening of symptoms. Discussed risks, benefits, alternatives, and potential side effects of medications. Ms. Centeno expressed understanding and agreed with the plan. Marleni Pyle APRN.EXERCISE SCIENCE INSTRUCTOR CNOV Observed: 09/14/2017 Status: COMPLETED Source: [place] 1:40 PM [facility] REPOSITORY Office Visit (INTMWS) CELENA CENTENO ([id number]) 1950 F Date Time Provider Department 09/14/17 1:40 PM MARLENI PYLE ([facility]) IN[facility] During your visit today, we recorded the following information about you: Pulse Respiration Blood pressure Weight 56/minute 14/minute 120/78 67.1 kg Marleni Pyle APRN.CNS 09/14/2017 2:39 PM Signed OUTPATIENT VISIT DATE September 14, 2017 OUTPATIENT VISIT TYPE ESTABLISHED PRIMARY CARE PHYSICIAN: Jose Finley MD CHIEF COMPLAINT: Patient presents with: F/U 3 Month History of Present Illness: Celena Centeno is a 66 year old female who was last seen 05/2017 by Jose Finley MD She has been seen in the past for ACTIVE PROBLEM LIST Essential Hypertension Mixed Hyperlipidemia Bipolar Disorder, Unspecified (Hcc) Hypothyroidism Diverticulosis of Colon (Without Mention of Hemorrhage) Generalized Osteoarthrosis, Unspecified Site Irritable Bowel Syndrome Unspecified Cardiovascular Disease Vitamin D Deficiency Hypokalemia Anemia Acute Gastritis Without Mention of Hemorrhage Duodenitis Without Mention of Hemorrhage Diarrhea Family History of Malignant Neoplasm of Gastrointestinal Tract Pyoderma, Unspecified Acne Vulgaris: Inflammatory Grade III to IV: nodulocystic; adult type Excoriations Xerosis Cutis Solar lentigines Actinic Damage//Sun-damaged skin Cad (Coronary Artery Disease), [place] Coronary Artery Coronary Stent Carcinoma in Situ, Vulva Severe Vulvar Dysplasia Elevated Lfts Fatty Infiltration of Liver Acne Scars Ibs (Irritable Bowel Syndrome) Pad (Peripheral Artery Disease) (Hcc) 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 She reports since last here she reduced her thyroid dose. She reports hair loss on the higher dose. Currently taking 50 ?g every other day for about 6 weeks. Reports feeling improved with this.Weight is a bit increased. Hypothyroidism. She is without Denies fatigue, cold intolerance, constipation, swelling in feet, dry skin, trouble swallowing and neck pain/pressure. Has had weight gain but limited exercise recently. TSH (uU/mL) Date Value 08/31/2017 4.890 11/18/2016 4.200 ) Follows with primary regarding bipolar. She did have a counselor previously but he moved to [place]. Feels she is doing well on current medications. She follows up with Dr.Moodispaw [facility] cardiology for coronary artery disease peripheral arterial disease. HTN: Ms. Centeno indicates that she is feeling well and without headache, chest pain, palpitations, dyspnea, peripheral edema, orthopnea, fatigue and PND. Last 3 Encounter BP Readings: Date: BP: 09/14/2017 120/78 05/30/2017 158/80 03/21/2017 144/82 Hyperlipidemia. Ms. Centeno reports doing well on current therapy. Does think that she may have missed a few dose of medication.No AE noted. Her most recent lipid panels are: Cholesterol, Total (mg/dL) Date Value 08/31/2017 202 11/18/2016 199 HDL Cholesterol (mg/dL) Date Value 08/31/2017 42 11/18/2016 40 LDL Cholesterol (mg/dL) Date Value 08/31/2017 134 11/18/2016 115 Triglyceride (mg/dL) Date Value 08/31/2017 132 11/18/2016 220 Anemia currently controlled on iron supplementation. No recent hospital or ED visits. No new medical problems or medications. Able to obtain medications. No problems with taking medications or note side effects. PAST MEDICAL HISTORY Diagnosis Date - Acute gastritis without mention of hemorrhage - Acute myocardial infarction of other specified sites, episode of care unspecified Myocardial Infarction--DR RAY - Adenomatous colon polyp TA on Jun 2015 colonoscopy (Dr. 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 Davison - Severe vulvar dysplasia - Vitamin D Deficiency 08/20/2009 PAST SURGICAL HISTORY Procedure Laterality Date - COLONOSCOP W/ OR W/O [facility] SPEC 06/24/15 Colonoscopy - COLONOSCOP W/ OR W/O [facility] SPEC 03/14/2017 Colonoscopy - COLONOSCOPY 09/06/02 Normal - [facility] - COLONOSCOPY W/BX 04/20/10 - DANDamp;C, DIAG AND/OR THERAPEUTIC 1972 Dilation ANDamp; curettage - EGD 08/30/02 small hiatal hernia - [facility] - EGD W/O [facility] SPECIMEN W/BX 04/20/10 - EGD W/O OR W/BRUSH/WASH 06/24/15 EGD - PART SIMPLE REMV VULVA 10/21/2010 Partial simple posterior vulvectomy and anterior vulvar biopsy - PAST SURGICAL HISTORY OF 05/1973 left knee surgery cartilage removed from knee - PAST SURGICAL HISTORY OF 05/19/1997 Stent inserted right coronary artery - PAST SURGICAL HISTORY OF 09/2002 [facility] left hand surgery - PAST SURGICAL HISTORY OF 2008 thumb surgery left hand - PAST SURGICAL HISTORY OF 2007 left knee surgery - PAST SURGICAL HISTORY OF Reoperation to release adhesions - REVSC OPN/PRQ ILIAC ART W/STNT PLMT ANDamp; ANGIOP UNI 06-05-13 right leg - THROMBOENDARTECTMY FEMORAL COMMON 08-15-13 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 - THROMBOENDARTECTMY ILIOFEMORAL Left 02-01-16 - TOTAL ABDOM HYSTERECTOMY 1975 Hysterectomy, DOROTHY, BSO;Fibroids/infection FAMILY HISTORY Problem Relation Age of Onset - Breast Cancer Mother - Alzheimer's Disease Mother - Heart Mother - Colon Cancer Mother was diagnosed around late 60's - Heart Father ID at 36 yo; when mom was 3 months - bladder cancer [OTHER] Brother - Diabetes Brother - Stroke Brother 1/2 brother - Heart Brother diabetes; had 4 vessel CABG 09/2011; bladder cancer - Coronary Artery Disease Paternal Uncle all 5 uncles had ID's in their early 40's - Coronary Artery Disease Paternal Uncle - Coronary Artery Disease Paternal Uncle - Coronary Artery Disease Paternal Uncle - Coronary Artery Disease Paternal Uncle Social History Substance Use Topics - Smoking status: Former Smoker Packs/day: 0.50 Years: 30.00 Types: Cigarettes Quit date: 06/19/2002 - Smokeless tobacco: Never Used - Alcohol use Yes Comment: socially ALLERGIES: ALLERGIES Allergen Reactions - Codeine Hives - Darvon [Propoxyphen* Hives - Morphine Other: See Comments Made tongue swell - Penicillins Anaphylaxis - Simvastatin Other: See Comments elevated LFTS; had tolerated Lipitor for years without problem MEDICATIONS clonazePAM (KLONOPIN) 0.5 mg tablet TAKE 1 TABLET DAILY NEEDED atorvastatin (LIPITOR) 40 mg tablet TAKE 1 TABLET EVERY DAY nitroglycerin sublingual (NITROQUICK) 0.4 mg SL tablet Dissolve 1 tablet under the tongue as needed. DISSOLVE ON TONGUE FOR CHEST PAIN. IF NO PAIN RELIEF, CALL 911 levothyroxine (SYNTHROID) 50 mcg tablet Take 1 tablet by mouth daily before breakfast. (plus 25mcg pill every other day--in other words alternating 75 mcg with 50 mcg every other day) sertraline (ZOLOFT) 100 mg tablet Take 1 tablet by mouth once daily. pantoprazole DR (PROTONIX) 20 mg tablet Take 1 tablet by mouth twice daily. polyethylene glycol 3350 (MIRALAX, GLYCOLAX) 17 gram/dose powder Take 17 g by mouth once daily. Use as needed. cholecalciferol, Vitamin D3, (VITAMIN D3) 50,000 unit cap capsule Take 1 capsule by mouth once every month. buPROPion (WELLBUTRIN) 100 mg tablet Take 1 tablet by mouth once daily. ferrous sulfate 325 mg (65 mg iron) tablet Take 1 tablet by mouth daily with breakfast. clopidogrel (PLAVIX) 75 mg tablet Take 1 tablet by mouth once daily. nystatin (MYCOSTATIN) powder Apply 1 application to affected area three times daily. atenolol (TENORMIN) 25 mg tablet Take 1 tablet by mouth once daily. amLODIPine (NORVASC) 5 mg tablet Take 1 tablet by mouth once daily. atenolol (TENORMIN) 50 mg tablet Take 0.5 tablets by mouth once daily. aspirin, enteric coated (ECOTRIN LOW STRENGTH) 81 mg ORAL EC tablet Take 1 tablet by mouth once daily. REVIEW OF SYSTEMS: GENERAL: Negative for: Weight loss or gain, Fever or Chills, Weakness and Sleep difficulties. Physical Examination: BP 120/78 Pulse 56 Resp 14 Wt 148 lb (67.1kg) Extended Vitals not filed for this encounter. General appearance: Well appearing, alert, in no acute distress, well-hydrated, well nourished. Skin: Skin color, texture, turgor normal, no suspicious rashes or lesions Neck: Supple, no adenopathy; thyroid symmetric, normal size, no bruits Lungs: Lungs clear to auscultation. No wheezing, rhonchi, rales Heart: RRR without murmur, gallop, or rubs. Abdomen: Abdomen soft, non-tender. Bowel sounds normal. No masses, organomegaly Extremities: No edema, skin discoloration, clubbing or cyanosis. Good capillary refill. Peripheral pulses: Normal Neuro: Gait normal.Sensation grossly intact. Reviewed chart, outside records, tests I personally interviewed, confirmed and edited the above information if obtained by others. TESTING: Glucose (mg/dL) Date Value 08/31/2017 105 Potassium (mmol/L) Date Value 08/31/2017 3.2 Sodium (mmol/L) Date Value 08/31/2017 140 Chloride (mmol/L) Date Value 08/31/2017 100 CO2 (mmol/L) Date Value 08/31/2017 24 Creatinine (mg/dL) Date Value 08/31/2017 0.98 BUN (mg/dL) Date Value 08/31/2017 13 Anion Gap (mmol/L) Date Value 08/31/2017 16 Calcium (mg/dL) Date Value 08/31/2017 10.1 Glucose (mg/dL) Date Value 08/31/2017 105 Potassium (mmol/L) Date Value 08/31/2017 3.2 Sodium (mmol/L) Date Value 08/31/2017 140 Chloride (mmol/L) Date Value 08/31/2017 100 CO2 (mmol/L) Date Value 08/31/2017 24 Creatinine (mg/dL) Date Value 08/31/2017 0.98 BUN (mg/dL) Date Value 08/31/2017 13 Anion Gap (mmol/L) Date Value 08/31/2017 16 Calcium (mg/dL) Date Value 08/31/2017 10.1 Protein, Total (g/dL) Date Value 08/31/2017 7.7 Albumin (g/dL) Date Value 08/31/2017 4.4 Bilirubin, Total (mg/dL) Date Value 08/31/2017 0.3 Alkaline Phosphatase (U/L) Date Value 08/31/2017 83 AST (U/L) Date Value 08/31/2017 19 ALT (U/L) Date Value 08/31/2017 16 Hemoglobin (g/dL) Date Value 08/31/2017 14.1 Hematocrit (%) Date Value 08/31/2017 43.4 WBC (k/uL) Date Value 08/31/2017 11.22 Cholesterol, Total (mg/dL) Date Value 08/31/2017 202 HDL Cholesterol (mg/dL) Date Value 08/31/2017 42 LDL Cholesterol (mg/dL) Date Value 08/31/2017 134 Triglyceride (mg/dL) Date Value 08/31/2017 132 Hemoglobin A1C Date Value Ref Range Status 11/18/2016 5.6 4.3 - 5.6 % Final 07/29/2016 5.8 (H) 4.3 - 5.6 % Final Comment: [place] [employer] guidelines indicate that patients with HgbA1c in the range 5.7-6.4% are at increased risk for development of diabetes, and intervention by lifestyle modification may be beneficial. HgbA1c greater or equal to 6.5% is considered diagnostic of diabetes. Ejection Fraction: No results found IMPRESSION: Ms. Centeno is a 66 year old woman presents for routine follow up visit. After my examination and review of data, I make the following recommendations. PLAN AND RECOMMENDATIONS: 1. Acquired hypothyroidism - ICD9: 244.9, ICD10: E03.9 (primary diagnosis) Has reduced dose due to adverse effects. Feeling improved with this change. We'll recheck labs in 6-12 weeks. - TSH BLD - T4 FREE/FREE THYROX - T3 FREE BLD - LEVOTHYROXINE 50 MCG TABLET 2. Acquired hypothyroidism - ICD9: 244.9, ICD10: E03.9 - TSH BLD - T4 FREE/FREE THYROX - T3 FREE BLD - LEVOTHYROXINE 50 MCG TABLET 3. Bipolar affective disorder, remission status unspecified (HCC) - ICD9: 296.80, ICD10: F31.9 Feels mood is currently well controlled on medications. She is following with primary physician regarding this. No outside physicians currently. 4. Essential hypertension - ICD9: 401.9, ICD10: I10 - good control - Continue current medication(s) - Encouraged dietary sodium restriction/DASH diet - Recommended regular aerobic exercise. - Goal of BP ANDlt;130/80 5. Coronary artery disease involving [place] coronary artery of [place] heart without angina pectoris - ICD9: 414.01, ICD10: I25.10 Follows with [facility] On ASA, statin 6. Mixed hyperlipidemia - ICD9: 272.2, ICD10: E78.2 - suboptimal control - Continue current medication. 7. PAD (peripheral artery disease) (HCC) - ICD9: 443.9, ICD10: I73.9 Follows with [facility] On ASA, statin 8. Anemia, unspecified type - ICD9: 285.9, ICD10: D64.9 Stable on current treatment, continue unchanged. Marleni Pyle APRN.EXERCISE SCIENCE INSTRUCTOR Take 25 mcg daily of levothyroxine. Remember to take atorvastatin once daily Recheck labs in 6-12 weeks. Tums daily 1200mg daily (2 tabs). Vitamin D daily 800 IU daily. Advised to go to ER if develops chest pain, shortness of breath, or severe worsening of symptoms. Discussed risks, benefits, alternatives, and potential side effects of medications. Ms. Centeno expressed understanding and agreed with the plan. Marleni Pyle APRN.EXERCISE SCIENCE INSTRUCTOR Marleni Pyle APRN.EXERCISE SCIENCE INSTRUCTOR 09/14/2017 2:24 PM Addendum Take 25 mcg daily of levothyroxine. Remember to take atorvastatin once daily Recheck labs in 6-12 weeks. Tums daily 1200mg daily (2 tabs). Vitamin D daily 800 IU daily. Referring Provider: SELF [200] Allergies As of Date: 09/14/2017 Noted Allergy Reaction CODEINE 10/11/2007 4 - Hives DARVON (PROPOXYPHENE HCL) 10/11/2007 4 - Hives MORPHINE 09/14/2017 14 - Other: See Comments Comments: Made tongue swell PENICILLINS 10/11/2007 10 - Anaphylaxis SIMVASTATIN 04/17/2012 14 - Other: See Comments Comments: elevated LFTS; had tolerated Lipitor for years without problem Date Reviewed: 09/14/2017 Reviewed by: Mary Ann Henao LPN - Fully Assessed Reason for Visit: F/U 3 Month [443] Primary Visit Diagnosis:Acquired hypothyroidism [E03.9] Other Visit Diagnoses:Acquired hypothyroidism [E03.9] Comment:Will adjust dose as indicated; will get labs soon Bipolar affective disorder, remission status unspecified ([facility]) [F31.9] Essential hypertension [I10] Coronary artery disease involving [place] coronary artery of [place] heart without angina pectoris [I25.10] Mixed hyperlipidemia [E78.2] PAD (peripheral artery disease) ([facility]) [I73.9] Anemia, unspecified type [D64.9] Order(s):TSH BLD [SQTSH] Order #: [id number] FUTURE T4 FREE/FREE THYROX [SQFT4] Order #: [id number] FUTURE T3 FREE BLD [SQFREET3] Order #: [id number] FUTURE levothyroxine (SYNTHROID) 50 mcg tabletTake 0.5 tablets by mouth daily before breakfast. (plus 25mcg pill every other day--in other words alternating 75 mcg with 50 mcg every other day)Disp: Rfl: Prescriptions as of 09/14/2017 Sig: LEVOTHYROXINE 50 MCG TABLET Take 0.5 tablets by mouth nirmala* CLONAZEPAM 0.5 MG TABLET TAKE 1 TABLET DAILY NEEDED ATORVASTATIN 40 MG TABLET TAKE 1 TABLET EVERY DAY NITROGLYCERIN 0.4 MG SUBLINGU* Dissolve 1 tablet under the t* SERTRALINE 100 MG TABLET Take 1 tablet by mouth once d* PANTOPRAZOLE 20 MG TABLET,DEL* Take 1 tablet by mouth twice * POLYETHYLENE GLYCOL 3350 17 G* Take 17 g by mouth once daily* CHOLECALCIFEROL (VITAMIN D3) * Take 1 capsule by mouth once * BUPROPION HCL 100 MG TABLET Take 1 tablet by mouth once d* FERROUS SULFATE 325 MG (65 MG* Take 1 tablet by mouth daily * CLOPIDOGREL 75 MG TABLET Take 1 tablet by mouth once d* NYSTATIN 100,000 UNIT/GRAM TO* Apply 1 application to affect* ATENOLOL 25 MG TABLET Take 1 tablet by mouth once d* AMLODIPINE 5 MG TABLET Take 1 tablet by mouth once d* ATENOLOL 50 MG TABLET Take 0.5 tablets by mouth onc* Patient taking differently: Take 50 mg by mouth once dayne* * ASPIRIN 81 MG TABLET,DELAYED * Take 1 tablet by mouth once d* Medication notes this encounter ATENOLOL 25 MG TABLET >> Mary Ann Henao [facility] [employer] 09/14/2017 1:52 PM >> MARY ANN HENAO LPN [facility] Sep 14, 2017 1:52 PM not taking >> Mary Ann Henao [facility] 09/14/2017 1:57 PM >> MARY ANN HENAO LPN [facility] Sep 14, 2017 1:57 PM Taking one tablet daily LEVOTHYROXINE 25 MCG TABLET >> Mary Ann Henao [facility] 09/14/2017 1:58 PM >> MARY ANN HENAO LPN [facility] Sep 14, 2017 1:58 PM not taking ATENOLOL 50 MG TABLET >> Mary Ann Henao [facility] 09/14/2017 1:57 PM >> MARY ANN HENAO LPN [facility] Sep 14, 2017 1:57 PM not taking Problem List As Of Date 09/14/2017 Noted Resolved Essential hypertension [I10] More... MIXED HYPERLIPIDEMIA [E78.2] More... BIPOLAR DISORDER NOS [F31.9] More... Hypothyroidism [E03.9] More... Acute myocardial infarction of other specified * 09/12/2016 More... DIVERTICULOSIS OF COLON W/O BLEED [K57.30] More... GENERAL OSTEOARTHROSIS [M15.9] More... IRRITABLE COLON [K58.9] INVALID FOR* ASCVD [I25.10] More... Vitamin D Deficiency [E55.9] INVALID FOR* Hypokalemia [E87.6] INVALID FOR* Anemia [D64.9] Acute gastritis without mention of hemorrhage [*INVALID FOR* Duodenitis without mention of hemorrhage [K29.8*INVALID FOR* Diarrhea [R19.7] INVALID FOR* Family history of malignant neoplasm of gastroi*INVALID FOR* Pyoderma, unspecified [L08.0] INVALID FOR* Acne Vulgaris: Inflammatory Grade III to IV: no*INVALID FOR* Excoriations [T14.8XXA] INVALID FOR* Xerosis cutis [L85.3] INVALID FOR* Solar lentigines [L81.4] INVALID FOR* Actinic Damage//Sun-damaged skin [L57.8] INVALID FOR* CAD (coronary artery disease), [place] coronary *INVALID FOR* Priority: A More... 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 Fatty infiltration of liver [K76.0] INVALID FOR* Acne Scars [L90.5] INVALID FOR* IBS (irritable bowel syndrome) [K58.9] PAD (peripheral artery disease) [I73.9] INVALID FOR* Sciatica due to displacement of lumbar interver* More... GERD (gastroesophageal reflux disease) [K21.9] INVALID FOR* Iron deficiency anemia due to chronic blood los*INVALID FOR*06/24/2015 Family history of colon cancer [Z80.0] INVALID FOR*06/24/2015 MGUS (monoclonal gammopathy of unknown signific*INVALID FOR* Iron deficiency anemia [D50.9] INVALID FOR* Scoliosis of lumbar spine [M41.9] INVALID FOR* S/P lumbar spinal fusion [Z98.1] INVALID FOR* Other instructions from your clinician: Take 25 mcg daily of levothyroxine. Remember to take atorvastatin once daily Recheck labs in 6-12 weeks. Tums daily 1200mg daily (2 tabs). Vitamin D daily 800 IU daily. Prescriptions ordered this encounter Disp Refills Start End LEVOTHYROXINE 50 MCG TABLET 09/14/2017 Class: Med Update Route: ORAL Sig: Take 0.5 tablets by mouth daily before breakfast. (plus 25mcg pill every other day--in other words alternating 75 mcg with 50 mcg every other day) Medications Discontinued During This Encounter levothyroxine (SYNTHROID) 25 mcg tab* 05/30/2017 09/14/2017 Class: Med Update Cmt: Med-sync patient. If too soon, we will put new RX on hold for next cycle. Sig: Take with 50 mcg pill every other day (alternating 75 mcg with 50 mcg every other day) Disc: Reason for discontinue is not on file. levothyroxine (SYNTHROID) 50 mcg tab* 05/30/2017 09/14/2017 Class: Med Update Route: ORAL Sig: Take 1 tablet by mouth daily before breakfast. (plus 25mcg pill every other day--in other words alternating 75 mcg with 50 mcg every other day) Disc: Reason for discontinue is not on file. Encounter Status:Closed by MARLENI BARNETT on 09/14/17 CBC Collected: 08/31/2017 Status: F Source: [place] 11:09 AM [facility] REPOSITORY TYPE CODE TESTS RESULT OUT OF REFERENCE UNITS RANGE LAB WBC 3.70-11.00 k/uL WBC High 11.22 LAB RBC 3.90-5.20 m/uL RBC 4.69 LAB HGB 11.5-15.5 g/dL Hemoglobin 14.1 LAB HCT 36.0-46.0 % Hematocrit 43.4 LAB MCV 80.0-100.0 fL MCV 92.5 LAB MCH 26.0-34.0 pG MCH 30.1 LAB MCHC 30.5-36.0 g/dL MCHC 32.5 LAB RDWCV 11.5-15.0 % RDW-CV 13.8 LAB PLTCT 150-400 k/uL Platelet Count 229 LAB MPV 9.0-12.7 fL MPV 11.1 LAB ABSNUC <0.01 k/uL Absolute nRBC <0.01 Performed By: #### CBC, VITD, FT4, CMP, LIPB, TSH #### [facility] [address] [place], [place] [address] VITAMIN D 25 HYDROXY Collected: 08/31/2017 Status: F Source: [place] 11:09 AM [facility] REPOSITORY TYPE CODE TESTS RESULT OUT OF REFERENCE UNITS RANGE LAB VITD 31.0-80.0 ng/mL Vitamin D 25 44.5 Hydroxy Result Comment: Classification of 25 [place] Vitamin D status: Insufficiency/Moderate Deficiency: < or = 30 ng/mL Sufficiency/Optimal Levels: 31 to 80 ng/mL Toxicity: > 100 ng/mL Test performed by chemiluminescent immunoassay. Performed By: #### CBC, VITD, FT4, CMP, LIPB, TSH #### [facility] [employer] [address] [place], [place] [address] FREE T4 Collected: 08/31/2017 Status: F Source: [place] 11:09 AM [facility] REPOSITORY TYPE CODE TESTS RESULT OUT OF RANGE REFERENCE UNITS LAB FT4 0.9-1.7 ng/dL Free T4 1.3 Performed By: #### CBC, VITD, FT4, CMP, LIPB, TSH #### [facility] [employer] [address] [place], [place] [address] COMP METABOLIC PANEL Collected: 08/31/2017 Status: F Source: [place] 11:09 AM [facility] REPOSITORY TYPE CODE TESTS RESULT OUT OF REFERENCE UNITS RANGE LAB TP 6.3-8.0 g/dL Protein, Total 7.7 LAB ALB 3.9-4.9 g/dL Albumin 4.4 LAB CA 8.5-10.2 mg/dL Calcium, Total 10.1 LAB TBIL 0.2-1.3 mg/dL Bilirubin, Total 0.3 LAB ALKP 32-117 U/L Alkaline Phosphatase 83 LAB AST 13-35 U/L AST 19 LAB GLU 74-99 mg/dL Glucose High 105 Result Comment: The [place] [employer] (ADA) provides guidance for cutoff values for fasting glucose and random glucose. The ADA defines fasting as no caloric intake for at least 8 hours. Fas ting plasma glucose results between 100 to 125 mg/dL indicate increased risk for diabetes (prediabetes). Fasting plasma glucose results greater than or equal to 126 mg/dL meet the criteria for diagnosis of diabetes. In the absence of unequivocal hyperglycemia, results should be confirmed by repeat testing. In a patient with classic symptoms of hyperglycemia or hyperglycemic crisis, random plasma glucose results greater than or equal to 200 mg/dL meet the criteria for diagnosis of diabetes. Reference: Standards of Medical Care in Diabetes 2016, [place] [employer]. Diabetes Care. 2016.39(Suppl 1). LAB BUN 7-21 mg/dL BUN 13 LAB CRET 0.58-0.96 mg/dL Creatinine High 0.98 LAB NA 136-144 mmol/L Sodium 140 LAB K 3.7-5.1 mmol/L Low Potassium 3.2 LAB CL 97-105 mmol/L Chloride 100 LAB CO2 22-30 mmol/L CO2 24 LAB AGAP 9-18 mmol/L Anion Gap 16 LAB ALT 7-38 U/L ALT 16 LAB GFRAA eGFR- Amer. >60 LAB GFRNAA . eGFR-All Other Races 57 Result Comment: eGFR (Estimated GFR) Units of measure: mL/min/1.73 meters squared eGFR is derived from the reexpressed MDRD Study equation using the following parameters: serum creatinine, age, gender and race. The creatinine assay has been calibrated to be traceable to IDMS. An eGFR <60 mL/min/1.73m2 for >3 months is consistent with chronic kidney disease. Refer to KDOQI guidelines for clinical interpretation. In patients with unstable renal function, e.g. those with acute kidney injury, the eGFR may not accurately reflect actual GFR. Performed By: #### CBC, VITD, FT4, CMP, LIPB, TSH #### [facility] [address] [place] [id number] LIPID PANEL, BASIC Collected: 08/31/2017 Status: F Source: [place] 11:09 AM [facility] REPOSITORY TYPE CODE TESTS RESULT OUT OF REFERENCE UNITS RANGE LAB CHOL <200 mg/dL Cholesterol High 202 Result Comment: <200 mg/dL, Desirable 200-239 mg/dL, Borderline high >239 mg/dL, High LAB TRIGLY <150 mg/dL Triglyceride 132 Result Comment: <150 mg/dL, Normal 150-199 mg/dL, Borderline high 200-499 mg/dL, High >499 mg/dL, Very high LAB HDL >39 mg/dL HDL-Cholesterol 42 Result Comment: 40-59 mg/dL, Acceptable >59 mg/dL, High: Negative risk factor for coronary heart disease <40 mg/dL, Low: Positive risk factor for coronary heart disease LAB LDL <100 mg/dL LDL-Cholesterol High 134 Result Comment: <100 mg/dL, Optimal 100-129 mg/dL, Near optimal/above optimal 130-159 mg/dL, Borderline high 160-189 mg/dL, High >189 mg/dL, Very high Secondary prevention optimal LDL Cholesterol levels are recommended to be < 70 mg/dL LAB NONHDL <130 mg/dL Non HDL High Cholesterol 160 Result Comment: <130 mg/dL, Optimal 130-159 mg/dL, Near optimal/above optimal 160-189 mg/dL, Borderline high 190-219 mg/dL, High >219 mg/dL, Very high Secondary prevention optimal non HDL Cholesterol levels are recommended to be < 100 mg/dL LAB FT hrs Fasting Time 8 LAB VLDL <30 mg/dL VLDL Cholesterol 26 LAB TCHDL <5.10 TC:HDL Ratio 4.81 LAB LDLHDL <2.54 High LDL:HDL Ratio 3.19 Result Comment: Reference: 1. National Cholesterol Education Program ATP III Guideline At-A-Glance Quick Desk Reference: National Heart, Lung, and Blood Junior. National Institutes of Health. 2001: NIH Publication No. 01-3305. 2. An International Atherosclerosis Society position paper: global recommendations for the management of dyslipidemia: executive summary, Atherosclerosis. 2014: 232(2):410-413. Performed By: #### CBC, VITD, FT4, CMP, LIPB, TSH #### [facility] [employer] [address] [place] [address] TSH Collected: 08/31/2017 Status: F Source: [place] 11:09 AM [facility] REPOSITORY TYPE CODE TESTS RESULT OUT OF RANGE REFERENCE UNITS LAB TSH 0.400-5.500 uU/mL TSH 4.890 Performed By: #### CBC, VITD, FT4, CMP, LIPB, TSH #### [facility] [employer] [address] [place] [id number] ALLERGIES ALLERGIES DATE TYPE / NAME / CODE REACTION SEVERITY SOURCE CODE 07/02/2018 Drug propoxyphene Other [place] Allergy/41 HCl/[id number](RXN Community 2995507([facility]) Repository 07/02/2018 Drug Penicillins/N96916 Nausea/Vom/Diarrh [place] Allergy/41 0476(RXNORM) ea Community 3813845([facility]) Repository 07/02/2018 Drug codeine/[id number] Swelling [place] Allergy/41 (RXNORM) Community 1743712( [facility]) Repository 07/02/2018 Drug simvastatin/[id number] Unknown Unknown [place] Allergy/41 3621(RXNORM) Community 2126949([facility]) Repository 09/14/2017 DRUG MORPHINE OTHER: SEE C [address] 4972997(SN Repository OMED CT) 04/17/2012 DRUG SIMVASTATIN OTHER: SEE C [address] 5842032(SN Repository OMED CT) 10/11/2007 DRUG CODEINE [address] 5972552(SN Repository OMED CT) 10/11/2007 DRUG PROPOXYPHENE HCL HIVES [address] 1955577(SN Repository OMED CT) 10/11/2007 Drug PENICILLINS ANAPHYLAXIS [facility] Class/4195 [facility] [address](SNOM Repository ED CT) ENCOUNTERS ENCOUNTERS ADMIT/DISCHARGE ACCOUNT ADMITTING ENCOUNTER LOCATION SOURCE NUMBER CLASS 07/02/2018/07/04/19 [id number] Ambulatory [address] Repository 07/02/2018/07/02/19 [id number] Ambulatory BMSBuilding:B [place] [facility] Repository 06/28/2018/06/28/19 [id number] Ambulatory [address] Repository 06/28/2018/06/28/19 [id number] Ambulatory BMSBuilding:B [place] [facility] Repository 06/25/2018 [id number] Ambulatory BMSBuilding:B [place] MS.[facility] Repository 06/25/2018 [id number] Ambulatory [facility] Hospital ing:[facility] Repository 06/22/2018 [id number] Ambulatory BMSBuilding:B [place].[facility] Repository 05/29/2018 [id number] Ambulatory [facility] Hospital ing:[facility] Repository 05/29/2018 [id number] Ambulatory BMSBuilding:W [facility] Repository 05/24/2018/05/24/20 [id number] Ambulatory BMSBuilding:B [place] [facility] Repository 03/19/2018/03/19/20 [id number] Ambulatory [address] Repository 03/19/2018/04/03/20 [id number] Ambulatory [address] Repository 12/18/2017/12/19/19 [id number] Ambulatory [address] Repository 12/08/2017/12/20/19 [id number] Ambulatory [address] Repository 12/01/2017 [id number] Ambulatory [facility] Repository 11/27/2017/11/28/19 [id number] Ambulatory BMSBuilding:B [place] [facility] Repository 11/23/2017 [id number] Ambulatory [facility] Repository 11/23/2017/11/25/19 [id number] Ambulatory [address] Repository 09/14/2017/09/15/19 [id number] Ambulatory [address] Repository 08/31/2017 [id number] Ambulatory [facility] Repository PAYERS PAYERS ENCOUNTER GUARANTOR PAYER SUBSCRIBER SOURCE 07/02/2018 CELENA J Primary CELENA J [place] [id number] Insurance:MEDICARE RICHARDDOB: [facility] PARTRIDGE PART A [id number] Number: [place]ository [place] [id number]: [id number] Date:2018-06-22 () 07/02/2018 Secondary CELENA J [place] Insurance:MUTUAL OF RICHARDDOB: [facility] Number: [id number] Hospital [id number] Repository Date:0266-90-65ABHLGSABERDEEN, [place] [address]GG: 07/02/2018 Tertiary NOT GIVENUNK [place] Insurance:SELF PAY [facility] Number: Effective Repository Date:2018-06-29 06/28/2018 CELENA J Primary CELENA J John [id number] Insurance:MEDICARE RICHARDDOB: Community [employer]TRID[employer] PART A [facility] [id number], Number: [place]ository [place] [id number]: [id number] Date:2018-05-24 () 06/28/2018 Secondary CELENA J [place] Insurance:MUTUAL OF RICHARDDOB: [facility] Number: [id number] Hospital [id number] Repository Date:2361-03-67[place]JALSYC[place], [place] [address]CZ: 06/28/2018 Tertiary NOT GIVENUNK John Insurance:SELF PAY [facility] Number: Effective Repository Date:2018-06-28 06/25/2018 CELENA J Primary CELENA J [place] [id number] Insurance:MEDICARE RICHARDDOB: Community [employer] A [facility] [id number], Number: [place]ository [place] [id number]: [id number] Date:2018-06-22 () 06/25/2018 Secondary CELENA J [place] Insurance:MUTUAL OF RICHARDDOB: [facility] Number: [id number] Hospital [id number] Repository Date:8317-36-32ERSVOC [place], [place] [address]DB: 06/25/2018 Tertiary NOT GIVENUNK John Insurance:SELF PAY [facility] Number: Effective Repository Date:2018-06-25 06/25/2018 CELENA J Primary CELENA J [place] [id number] Insurance:MEDICARE RICHARDDOB: Community [employer] A [facility] [id number] Hospital, Number: [place]ository [place] [id number]: [id number] Date:2018-06-22 () 06/25/2018 Secondary CELENA J [place] Insurance:MUTUAL OF RICHARDDOB: [facility] Number: [id number] Hospital [id number] Repository Date:1794-70-80VNECGKCLEVELAND, [place] [address]SL: 06/25/2018 Tertiary NOT GIVENUNK [place] Insurance:SELF PAY [facility] Number: Effective Repository Date:2018-06-22 06/22/2018 CELENA J Primary CELENA J [place] [id number] Insurance:MEDICARE RICHARDDOB: Community [employer]TR[employer] A [facility] [id number] Hospital, Number: Repository [place] [address]Wmz: [id number] Date:2018-06-22 () 06/22/2018 Secondary CELENA J [place] Insurance:MUTUAL OF RICHARDDOB: [facility] Number: [id number] Hospital [id number] Repository Date:8997-88-36WVCJJB [place] [address]HA: 06/22/2018 Tertiary NOT GIVENUNK [place] Insurance:SELF PAY [facility] Number: Effective Repository Date:2018-06-22 05/29/2018 CELENA J Primary CELENA J John [id number] Insurance:MEDICARE RICHARDDOB: Community [employer] A [facility] [id number] Hospital, Number: [place]ository [place] [id number]: [id number] Date:2018-05-24 () 05/29/2018 Secondary CELENA J [place] Insurance:MUTUAL OF RICHARDDOB: [facility] Number: [id number] Hospital [id number] Repository Date:9500-06-00TCACMZ [place], [place] [address]WU: 05/29/2018 Tertiary NOT GIVENUNK John Insurance:SELF PAY [facility] Number: Effective Repository Date:2018-05-24 05/29/2018 CELENA J Primary CELENA J [place] [id number] Insurance:MEDICARE RICHARDDOB: Community [employer] A [facility] [id number] Hospital, Number: Repository [place] [address]Evi: [id number] Date:2018-05-24 (HP) 05/29/2018 Secondary CELENA J [place] Insurance:MUTUAL OF RICHARDDOB: [facility] Number: [id number] Hospital [id number] Repository Date:4383-59-19BQGNWA [place], [place] [address]PF: 05/29/2018 Tertiary NOT GIVENUNK John Insurance:SELF PAY [facility] Number: Effective Repository Date:2018-05-29 05/24/2018 CELENA J Primary CELENA J John [id number] Insurance:MEDICARE RICHARDDOB: Community [employer]TR[employer]GE PART A [facility] [id number] Hospital, Number: [place]ository [place] [id number]: [id number] Date:2017-11-30 () 05/24/2018 Secondary CELENA J [place] Insurance:MUTUAL RICHARDDOB: [facility] Number: [id number] Hospital [id number] Repository Date:9453-94-77UDUYYCCLEVELAND, [place] [address]ZB: 05/24/2018 Tertiary NOT GIVENUNK [place] Insurance:SELF PAY [facility] Number: Effective Repository Date:2018-05-24 11/27/2017 CELENA J Primary CELENA J [place] [id number] Insurance:MEDICARE RICHARDDOB: Community [employer]TRIDGE PART A [facility] [id number] Hospital, Number: [place]ository [place] [id number]: [id number] Date:2017-06-08 () 11/27/2017 Secondary CELENA J John Insurance:UNITED RICHARDDOB: Community [id number] Number: [id number] Date:2017-06-08 11/27/2017 Tertiary NOT GIVENUNK John Insurance:SELF PAY [facility] Number: Effective Repository Date:2017-06-08
== END ==
PROVIDERS: Family Provider Internal Medicine; PCP Internal Medicine; Referring Provider Physician Assistant Medical; Visit Provider Physician Assistant Medical
DX: I25.10 Atherosclerotic heart disease of native coronary artery without angina pectoris (principal); I10 Essential (primary) hypertension; E78.5 Hyperlipidemia, unspecified; I73.9 Peripheral vascular disease, unspecified
CPT/HCPCS: 78452; 93017; A9500; A4216; J2785

== ENCOUNTER → 2018-06-25 13:55 | Outpatient (CLI) | payer MEDICARE, OTHER, SELFPAY ==
[2018-05-24 14:01] VITALS: BMI 25.1
--- NOTE | 2018-06-25 14:00 | ART_ITS ---
Reason For Study: Claudication Left Segmental Pressures Left brachial= 148mmHg. Left thigh = 168mmHg. Left calf = 146mmHg. Left posterior tibial artery = 144.mmHg. Left dorsalis pedis artery = 143mmHg. The left dorsalis pedis waveforms are triphasic. The left posterior tibial artery waveforms are triphasic. Right Segmental Pressures Right brachial= 157mmHg. Right posterior tibial artery = 157mmHg. Right dorsalis pedis artery = 150mmHg. The right dorsalis pedis waveforms are triphasic. The right posterior tibial artery waveforms are triphasic. Indices The right ankle brachial index by the dorsalis pedis is .96. The right ankle brachial index by the posterior tibial artery is 1.0. The left ankle brachial index by the dorsalis pedis is .91. The left ankle brachial index by the posterior tibial artery is .92. Interpretation Summary Normal resting right ABIs and waveforms. Normal volume pulse recordings at the calfand distally. Mildly diminished left ABIs at 0.92 and 0.91. Normal triphasic waveforms. Normal volume pulse recording amplification at the calf.Mildly diminished digital waveforms. Findings on the left correlate with mild vascular claudication. The level of the diseaes cannot be determined. Ordering Physician: Michele Corrales Referring Physician: Michele Corrales Performed By: Jory Robison Brandon
== END ==
PROVIDERS: Family Provider Internal Medicine; PCP Internal Medicine; Referring Provider Surgery; Visit Provider Surgery
DX: I73.9 Peripheral vascular disease, unspecified (principal)
CPT/HCPCS: 93923

== ENCOUNTER → 2019-06-20 13:49 | Outpatient (CLI) | payer MEDICARE, OTHER, SELFPAY ==
[2018-12-11 12:59] VITALS: BMI 24.7
[2019-06-10 10:47] VITALS: BMI 24.4
--- NOTE | 2019-06-20 13:51 | ART_ITS ---
Reason For Study: PAD Procedure A bilateral lower extremity continuous wave Doppler with analog waveform analysis,segmental pressures,and ankle brachial indexes without exercise. Left Segmental Pressures Left brachial= 139mmHg. Left thigh = 174mmHg. Left calf = 147mmHg. Left posterior tibial artery = 147mmHg. Left dorsalis pedis artery = 143mmHg. Left digit = 114 mmHg. The left dorsalis pedis waveforms are triphasic. The left posterior tibial artery waveforms are triphasic. Right Segmental Pressures Right brachial= 153mmHg. Right posterior tibial artery = 158mmHg. Right dorsalis pedis artery = 140mmHg. Right digit = 122 mmHg. The right dorsalis pedis waveforms are triphasic. The right posterior tibial artery waveforms are triphasic. Indices The right ankle brachial index by the dorsalis pedis is 0.92. The right ankle brachial index by the posterior tibial artery is 1.03. The right digital-brachial index is 0.80. The left ankle brachial index by the dorsalis pedis is 0.93. The left ankle brachial index by the posterior tibial artery is 0.96. The left digital-brachial index is 0.75. Interpretation Summary Normal right lower extremity noninvasive arterial exam at rest. Right SULMA 1.03. Right digital brachial index 0.8 Minimal arterial occlusive disease left lower extremity at rest. Left SULMA 0.96. Left digital brachial index 0.75 Findings appear similar to the examination of June 25, 2018 Ordering Physician: Michele Corrales Referring Physician: Laurie Finley M.D. Performed By: Bharati Grey RVT
== END ==
PROVIDERS: Family Provider Internal Medicine; PCP Internal Medicine; Referring Provider Surgery; Visit Provider Surgery
DX: I73.9 Peripheral vascular disease, unspecified (principal)
CPT/HCPCS: 93923

== ENCOUNTER → 2019-12-12 10:06 | Outpatient (CLI) | payer MEDICARE, OTHER, SELFPAY ==
[2019-12-04 14:04] VITALS: BMI 24.7
[2019-12-12 11:28] LABS: AST(SGOT) 20 U/L (15-37); Alanine Aminotransfer ALT/SGPT 22 U/L (13-56); Albumin, Serum 3.9 g/dL (3.2-5.0); Alkaline Phosphatase 84 U/L (45-117); Bilirubin, Direct 0.15 mg/dL (0.00-0.30); Cholesterol 207 mg/dL (200); High Density Lipoprotein 46 mg/dL; Protein, Total 7.9 g/dL (6.4-8.2); Triglycerides 141 mg/dL; Very Low Density Lipoprotein 28 mg/dL (5-40)
== END ==
PROVIDERS: PCP Internal Medicine; Visit Provider Internal Medicine Cardiovascular Disease
DX: E78.00 Pure hypercholesterolemia, unspecified (principal); I25.10 Atherosclerotic heart disease of native coronary artery without angina pectoris
CPT/HCPCS: 36415; 80061; 80076

== ENCOUNTER → 2019-12-12 11:16 | Outpatient (CLI) | payer MEDICARE, OTHER, SELFPAY ==
[2019-12-04 14:04] VITALS: BMI 24.7
== END ==
PROVIDERS: PCP Internal Medicine; Visit Provider Clinical Nurse Specialist
DX: R05 Cough (principal); Z20.828 Contact with and (suspected) exposure to other viral communicable diseases; E78.00 Pure hypercholesterolemia, unspecified; I25.10 Atherosclerotic heart disease of native coronary artery without angina pectoris
CPT/HCPCS: 36415; 80061; 80076; 87635; G2023; U0003

== ENCOUNTER → 2020-06-23 13:46 | Outpatient (CLI) | payer MEDICARE, OTHER, SELFPAY ==
[2019-12-04 14:04] VITALS: BMI 24.7
--- NOTE | 2020-06-23 13:54 | ART_ITS ---
Reason For Study: PVD Procedure A bilateral lower extremity continuous wave Doppler with analog waveform analysis,segmental pressures,and ankle brachial indexes without exercise. Left Segmental Pressures Left brachial= 155mmHg. Left thigh = 161mmHg. Left calf = 128mmHg. Left posterior tibial artery = 131mmHg. Left dorsalis pedis artery = 119mmHg. Left digit = 116 mmHg. The left dorsalis pedis waveforms are biphasic. The left posterior tibial artery waveforms are biphasic. Right Segmental Pressures Right brachial= 153mmHg. Right thigh = 160mmHg. Right calf = 133mmHg. Right posterior tibial artery = 144mmHg. Right dorsalis pedis artery = 137mmHg. Right digit = 125 mmHg. The right dorsalis pedis waveforms are triphasic. The right posterior tibial artery waveforms are biphasic. Indices The right ankle brachial index by the dorsalis pedis is 0.88. The right ankle brachial index by the posterior tibial artery is 0.93. The right digital-brachial index is 0.81. The left ankle brachial index by the dorsalis pedis is 0.77. The left ankle brachial index by the posterior tibial artery is 0.85. The left digital-brachial index is 0.75. Interpretation Summary Moderately severe bilateral lower extremity arterial occlusive disease. Findings demonstrate biphasic right posterior tibial although triphasic right dorsalis pedis waveforms. Findings demonstrate biphasic left posterior tibial and dorsalis pedis waveforms. Digital brachial index is normal on the right and borderline normal on the left Findings would suggest slight progression of disease of the left from the previous examination of June 20, 2019 Ordering Physician: Michele Corrales Referring Physician: Laurie Finley M.D. Performed By: Bharati Grey RVT
== END ==
PROVIDERS: PCP Internal Medicine; Referring Provider Surgery; Visit Provider Surgery
DX: I73.9 Peripheral vascular disease, unspecified (principal)
CPT/HCPCS: 93923

== ENCOUNTER → 2020-07-06 09:41 | Outpatient (CLI) | payer MEDICARE, OTHER, SELFPAY ==
--- NOTE | 2020-07-06 09:43 | CDU_ITS ---
Reason For Study: Carotid bruit Rt. Velocities/BP Lt. Velocities/BP Prox CCA 73.4/12.1 cm/sec. Prox CCA 60.5/10.2 cm/sec. Mid CCA 66.9/12.1 cm/sec. Mid CCA 56.8/11.4 cm/sec. Dist CCA 57.8/12.1 cm/sec. Dist CCA 37.7/6.9 cm/sec. Prox ICA 64.3/13.4 cm/sec. Prox ICA 43/9 cm/sec. Mid ICA 63/14.7 cm/sec. Mid ICA 47.4/14.2 cm/sec. Dist ICA 76/23.9 cm/sec. Dist ICA 62.2/16 cm/sec. Rt. ICA/CCA = 1.1. Lt. ICA/CCA = 1.1. Prox ECA 76/13.4 cm/sec. Prox ECA 148.5/11.5 cm/sec. Rt. Vert. 50.4/9.7 cm/sec. Lt. Vert. 67.4/12.6 cm/sec. Right Extracranial There is homogeneous, smooth atherosclerotic plaque noted in the right common carotid artery. There is heterogeneous, irregular atherosclerotic plaque noted in the right internal carotid artery. There is homogeneous, smooth atherosclerotic plaque noted in the right external carotid artery. Antegrade flow is noted in the right vertebral artery. Left Extracranial There is heterogeneous, irregular atherosclerotic plaque noted in the left common carotid artery. There is heterogeneous, irregular atherosclerotic plaque noted in the left internal carotid artery. There is heterogeneous, irregular atherosclerotic plaque noted in the left external carotid artery. Antegrade flow is noted in the left vertebral artery. Procedure Carotid Duplex [id number]. This is a Carotid Duplex examination using B-mode, color flow and specral Doppler. Exam performed in department. Interpretation Summary Irregular calcific plaque at the proximal right internal carotid artery with less than 50% stenosis Less than 50% stenosis right external carotid artery Irregular calcific plaque at the proximal left internal carotid artery with less than 50% stenosis Less than 50% stenosis left external carotid artery Patent and antegrade vertebral arteries bilaterally Ordering Physician: Samantha Graham Referring Physician: Laurie Finley M.D. Performed By: Bharati Grey RVT
== END ==
PROVIDERS: PCP Internal Medicine; Referring Provider Physician Assistant; Visit Provider Physician Assistant
DX: R09.89 Other specified symptoms and signs involving the circulatory and respiratory systems (principal)
CPT/HCPCS: 93880

== ENCOUNTER → 2020-07-20 15:57 | Outpatient (CLI) | payer MEDICARE, OTHER, SELFPAY ==
[2020-07-20 18:03] LABS: CRP 5.66 mg/L (0.0-3.0)
[2020-07-22 20:07] LABS: Endomysial Antibody IgA Negative (Negative)
[2020-07-22 20:15] LABS: Immunoglobulin A 102 mg/dL (87-352); t-Transglutaminase IgA <2 U/mL (0-3)
== END ==
PROVIDERS: PCP Internal Medicine; Referring Provider Internal Medicine Gastroenterology; Visit Provider Internal Medicine Gastroenterology
DX: R19.7 Diarrhea, unspecified (principal)
CPT/HCPCS: 36415; 82784; 83516; 86140; 86255

== ENCOUNTER → 2023-01-25 | Outpatient (CLI) | payer MEDICARE, OTHER, SELFPAY ==
[2023-01-25 18:43] LABS: CRP < 2.90 mg/L (0.0-3.0)
[2023-01-27 16:09] LABS: Endomysial Antibody IgA Negative (Negative); Immunoglobulin A 105 mg/dL (64-422); t-Transglutaminase IgA <2 U/mL (0-3)
[2023-01-28 21:07] LABS: Calprotectin, Stool 232 ug/g (0-120)
== END | disposition home or self-care (01) ==
PROVIDERS: PCP Internal Medicine; Referring Provider Internal Medicine Gastroenterology; Visit Provider Internal Medicine Gastroenterology
DX: R19.7 Diarrhea, unspecified (principal); R63.4 Abnormal weight loss
CPT/HCPCS: 36415; 82784; 83516; 83993; 86140; 86255

== ENCOUNTER 2024-04-07 21:23 | Emergency (ER) | payer MEDICARE, OTHER, SELFPAY ==
[2024-04-07] VITALS (7 sets, daily range): BP systolic 129–162; BP diastolic 66–129; PULSE 59–69; RESP 16–18; TEMP 36.4; O2SAT 96–100
--- NOTE | 2024-04-07 21:35 | RAD_ITS ---
INDICATION: Stroke STROKE PROTOCOL, CONFUSION EXAMINATION/TECHNIQUE: X-RAY - XR Chest 1 View AP portable. 10:06 PM COMPARISON: Prior study dated: 04/12/2012 FINDINGS: LINES/DEVICES: None. LUNGS: No consolidation. No pneumothorax. MEDIASTINUM: Aorta is atherosclerotic. CARDIAC SILHOUETTE: Not enlarged. BONES AND SOFT TISSUES: No acute abnormalities. RAD/Chest 1 View (Portable) IMPRESSION: No evidence of active intrathoracic disease. Electronically Signed: Radha Talavera MD at 22:43 EDT ,
[2024-04-07 21:47] LABS: Absolute Lymphocyte Count 2.76 X10^3/uL (0.83-4.51); Absolute Neutrophil Count 4.7 X10^3/uL (2.0-7.7); Basophil# 0.05 X10^3/uL; Basophil% 0.6 % (0-1); Eosinophil# 0.24 X10^3/uL; Eosinophils% 2.9 % (0-5); Hemoglobin 14.7 g/dL (12.0-15.0); Lymphocyte # 2.76 X10^3/ul (0.83-4.51); Lymphocyte % 33.1 % (19-41); Mean Corpuscular Volume 94.4 fL (81-99); Mean Platelet Vol. 9.9 fl (6.2-12.0); Monocyte# 0.56 X10^3/uL; Monocyte% 6.7 % (0-10); NRBC Flagged by Analyzer 0 % (0-5); Neutrophil # 4.72 X10^3/uL (2.7-7.7); Neutrophil % 56.5 % (47-70); Platelet Count 166 K/mm3 (150-450); RBC Distribution Width CV 13.3 % (11.6-14.6); RBC Distribution Width SD 46.3 fl (35.1-43.9); Red Blood Count 4.45 M/mm3 (4.2-5.4); White Blood Count 8.4 K/mm3 (4.4-11.0)
[2024-04-07 21:49] LABS: POSITIVE COUNT NO; POSITIVE DIFFERENTIAL NO; POSITIVE MORPHOLOGY NO
[2024-04-07 22:09] LABS: Anion Gap 6 (5-15); BUN 11 mg/dL (7-18); BUN/Creat Ratio 14.7 RATIO (10-20); Calcium,Total 9.6 mg/dL (8.5-10.1); Chloride 108 mmol/L (98-107); Creatinine, Serum 0.75 mg/dL (0.55-1.02); EST Glomerular Filtration Rate 81 mL/min (>60); Est Glom Filt Rate - Afr Amer 98 mL/min (>60); Glucose 119 mg/dL (74-106); Sodium Level 140 mmol/L (136-145)
[2024-04-07 22:11] LABS: Prothrombin Time (Protime)PT. 13.2 SECONDS (11.7-14.9)
[2024-04-07 22:12] LABS: Partial Thromboplast Time 28.4 Seconds (24.1-36.2)
--- NOTE | 2024-04-07 22:35 | CT_ITS ---
INDICATION: blurred vision EXAMINATION: CT BRAIN - CT Head or Brain W/O Contrast Injection TECHNIQUE: Multiple axial images were obtained of the head without intravenous contrast. The protocol utilizes one or more of the following dose reduction techniques: automated exposure control, adjustment of mA and/or kV according to patient size,and/or use of iterative reconstruction technique. IV Contrast dosage and agent: None. RADIATION DOSAGE (If Supplied By Facility): CTDIvol = ( 44.99 ) mGy, DLP = ( 745.49 ) mGycm COMPARISON: No relevant prior comparison study available FINDINGS: BRAIN: No acute bleed. No edema. Small old infarct in the right cerebellar hemisphere. Mild patchy decreased attenuation in the periventricular white matter bilaterally. Rendon-white matter differentiation is maintained. Arterial calcifications. VENTRICLES AND SULCI: Not dilated. EXTRA-AXIAL: No hemorrhage, fluid collection, or mass. CALVARIUM / SKULL BASE: Unremarkable. FACE/SINUSES: Unremarkable. SOFT TISSUES: Unremarkable. CT/Brain/Head without Contrast IMPRESSION: No acute abnormality. Old right cerebellar infarct. Chronic microvascular ischemic disease. CT angiogram and/or MRI may be helpful to evaluate for acute infarct as clinically indicated. Electronically Signed: Radha Talavera MD at 23:55 EDT ,
--- NOTE | 2024-04-07 22:36 | EX.ED.DYSGE1 ---
HPI History of Present Illness Chief Complaint: Neuro S/Sx Detail of Chief Complaint: Blurred vision Informant: patient and spouse/S.O. Narrative Narrative: Patient presents to the emergency department with complaint of blurred vision. Patient and her were filling out their absentee balance around 815 when she became very upset because she felt that her was treating her like a child. Patient's writing became very illegible and she had blurred vision in both eyes. She states that he felt like there was clouds around her vision. She became very upset. Patient thinks maybe she was having a stroke or a nervous breakdown. Patient had been drinking alcohol tonight and had 3 drinks. Patient on Plavix and aspirin currently. She currently states that her vision is resolved. She has no difficulty with speech. She denies weakness in the extremities. [facility] Medical History (Updated 04/08/24 @ 01:[address] Markell Pino, DO) Atherosclerotic heart disease of [place] coronary artery without angina pectoris Pure hypercholesterolemia IBS (irritable bowel syndrome) Hypothyroidism Presence of stent in coronary artery (~08/08/12) Atherosclerotic heart disease of [place] coronary artery without angina pectoris Benign essential HTN Arteriosclerotic heart disease (ASHD) Home Medications ?Medication ?Instructions ?Recorded ?Last Taken ?Type amlodipine 5 mg tablet 5 mg PO DAILY 06/04/13 02/01/16 05:00 History atenolol 25 mg tablet 25 mg PO DAILY 06/04/13 02/01/16 05:00 History clopidogrel 75 mg tablet 75 mg PO DAILY 06/04/13 Unknown History nitroglycerin 0.4 mg sublingual 0.4 mg sublingual Q5M PRN Chest 06/04/13 Unknown History tablet Pain pantoprazole 40 mg tablet,delayed 20 mg PO BID 06/04/13 02/01/16 05:00 History release bupropion HCl 100 mg tablet,12 hr 100 mg PO DAILY 06/28/18 Unknown History sustained-release (Wellbutrin SR) sertraline 100 mg tablet 100 mg PO DAILY 06/28/18 Unknown History levothyroxine 50 mcg tablet 50 mcg PO DAILY 06/10/19 Unknown History atorvastatin 80 mg tablet 80 mg PO QHS #30 tabs 12/16/19 Unknown Rx Allergy/AdvReac Type Severity Reaction Status Date / Time codeine Allergy Severe Swelling Verified 04/07/24 21:24 propoxyphene HCl (From Allergy Severe Other Verified 04/07/24 21:24 Dar[place]) Penicillins AdvReac Intermediate Nausea/Vom/ Verified 04/07/24 21:24 Diarrhea Family History Brother CVA (cerebral vascular accident) Heart disease Cancer Surgical History Presence of coronary angioplasty implant and graft (~08/08/12) History of aorto-femoral bypass History of heart artery stent History of left knee surgery History of hysterectomy History of lumbar surgery History of hysterectomy PAD (peripheral artery disease) Social History Smoking Status: Former smoker alcohol intake: never substance use type: does not use ROS ROS ED Review of Systems ROS Unobtainable: other Constitutional Constitutional ED: Reports lethargy; Denies chills, fever(s), sweats or weight loss Eyes Eyes: Reports blurry vision; Denies change in vision or diplopia ENT ENT ED: Denies rhinorrhea or sore throat Cardiovascular Cardiovascular: Denies chest pain, orthopnea or racing heartbeat Respiratory/Chest Respiratory/Chest: Denies cough, dyspnea, dyspnea on exertion, orthopnea or sputum Gastrointestinal Gastrointestinal: Denies abdominal pain, diarrhea, nausea or vomiting Genitourinary Genitourinary ED: Denies dysuria, hematuria or urinary frequency Musculoskeletal Musculoskeletal: Denies arthralgias, back pain, myalgias or neck pain Integumentary Denies abscess, Abrasions or rash Neurologic Neurologic: Denies headache(s) or weakness Psychiatric Psychiatric: Denies anxiety, depression or suicidal thoughts Endocrine Endocrinology: Denies polydipsia, polyphagia or polyuria Hematologic/Lymphatic Hematologic/Lymphatic: Denies easy bleeding, easy bruising or lymphadenopathy Allergic/Immunologic Allergic/Immunologic ED: Denies mouth swelling, tongue swelling or urticaria EXAM Physical Exam Const Vital Signs: 04/07/24 21:24 04/07/24 21:35 04/07/24 22:01 Temperature 97.5 F L Temperature Source Oral Pulse Rate 59 L 59 L Respiratory Rate 18 18 Blood Pressure 162/68 H 162/68 H Blood Pressure Mean 99 99 Pulse Ox 100 100 96 Oxygen Delivery Method Room Air Room Air Room Air 04/07/24 22:05 04/07/24 22:30 04/07/24 23:00 Temperature Temperature Source Pulse Rate 61 66 65 Respiratory Rate 16 18 18 Blood Pressure 150/129 H 129/66 H 133/68 H Blood Pressure Mean 136 87 89 Pulse Ox 98 97 98 Oxygen Delivery Method Room Air Room Air Room Air 04/07/24 23:30 04/08/24 00:00 04/08/24 00:24 Temperature Temperature Source Pulse Rate 69 57 L 68 Respiratory Rate 18 16 16 Blood Pressure 140/73 H 123/62 H 158/68 H Blood Pressure Mean 95 82 98 Pulse Ox 98 98 98 Oxygen Delivery Method Room Air Room Air Room Air Positive well nourished and well developed General Appearance ED: well developed and NAD HEENT Reports TM's clear and moist mucous membranes normocephalic and atraumatic; Negative for trauma or tenderness Tympanic Membrane ED: Yes TM's clear Eyes PERRL and EOMs intact bilaterally Eyes Narrative: Fundi benign without evidence of hemorrhage General Eye ED: Negative for pale conjunctiva or scleral icterus Neck no lymphadenopathy, supple and no JVD General: Negative for tenderness Chest Wall inspection of chest normal and palpation of chest normal Chest: Negative for tenderness Resp normal respiratory effort and clear to auscultation bilaterally Effort and Inspection: Negative for respiratory distress or pain with movement Auscultation: Negative for rhonchi, wheezes or diminished lung sounds Cardio regular rate, regular rhythm, S1 normal heart sound, S2 normal heart sound and no murmurs Peripheral Pulses: pulses 2+ throughout GI normal to inspection, nondistended, normoactive bowel sounds, soft to palpation, non-tender, non-distended and no masses Back/Spine no CVA tenderness and no thoracic nor lumbar tenderness Extremity normal to inspection General Extremety ED: Negative for edema General Extremity: Negative for edema Neuro oriented x3, CN's II-XII intact bilaterally, no sensory deficits noted and gait normal Neuro Narrative: Finger-nose and heel cristobal testing within normal limits, negative Romberg, negative , Fundi benign. NIH stroke scale is a 0. Sensorium / Orientation: awake, alert, oriented to person, oriented to place and oriented to time Motor Exam: strength 5/5 throughout and strength abnormal Psych mental status grossly normal Skin no rashes or lesions noted and no wounds MDM MDM MDM Narrative Medical decision making narrative: Patient presents with some vision changes and maybe some loss of dexterity while trying to write. She was very upset and was fighting with her . On arrival on my evaluation of the patient she is without complaints. Her vision is resolved. She think she may have had a nervous breakdown. Her feels that she was just very upset. No focal deficits noted on exam. I did obtain a CT scan of the brain without contrast that showed an old cerebellar stroke. CTA of head and neck did not show any large vessel occlusions or significant stenosis. CBC with differential count of 8.4 with hemoglobin 14.7 and platelet count 166. Chemistries unremarkable. Alcohol was less than 3. Glucose was 114. 1 view chest x-ray was unremarkable. EKG obtained showed a sinus rhythm with ventricular rate of 61 bpm with no acute ST segment changes. On repeat examination at 1:20 AM patient is asymptomatic and feels well. I am not convinced she had a stroke or TIA. She is currently on antiplatelet therapy and she is advised to continue with that. Will discharge to home. Advised to return if difficulty with speech or vision or focal weakness or condition worsening way. Patient to follow-up with her primary care physician within next 3 to 5 days Lab Data Attestation: I reviewed the patient's lab results. Labs: Laboratory Results - last 24 hr 04/07/24 04/07/24 04/07/24 21:40 22:42 22:48 WBC 8.4 RBC 4.45 Hgb 14.7 Hct 42.0 MCV 94.4 MCH 33.0 H MCHC 35.0 RDW Std Deviation 46.3 H RDW Coeff of [place] 13.3 Plt Count 166 MPV 9.9 Immature Gran % (Auto) 0.200 Neut % (Auto) 56.5 Lymph % (Auto) 33.1 [place] % (Auto) 6.7 Eos % (Auto) 2.9 Baso % (Auto) 0.6 Absolute Neuts (auto) 4.7 Absolute Lymphs (auto) 2.76 Nucleated RBC % 0 PT 13.2 INR 1.0 APTT 28.4 Sodium 140 Potassium 3.0 L Chloride 108 H Carbon Dioxide 26.0 Anion Gap 6 BUN 11 Creatinine 0.75 Est GFR (MDRD) Af Amer 98 Est GFR (MDRD) Non-Af 81 BUN/Creatinine Ratio 14.7 Glucose 119 H Calcium 9.6 Ethyl Alcohol < 3.0 POC Glucose 114 H Radiography Diagnostic Testing: Clinical Impression(s) from Imaging Studies Chest X-Ray 04/07/24 21:35 IMPRESSION: No evidence of active intrathoracic disease. Electronically Signed: Radha Talavera MD at 22:43 EDT , Brain CT 04/07/24 22:35 IMPRESSION: No acute abnormality. Old right cerebellar infarct. Chronic microvascular ischemic disease. CT angiogram and/or MRI may be helpful to evaluate for acute infarct as clinically indicated. Electronically Signed: Radha Talavera MD at 23:55 EDT , Head/Neck CTA 04/07/24 23:18 IMPRESSION: 1. No large vessel occlusion or significant intracranial vascular abnormality. 2. Moderate atherosclerotic changes right carotid bulb without hemodynamically significant stenosis. 3. Dense atherosclerotic changes left carotid bulb without hemodynamically significant stenosis. 4. Moderate atherosclerotic changes right intracavernous internal carotid artery without hemodynamic significant stenosis. 5. Moderate atherosclerotic changes left intracavernous internal carotid artery without hemodynamic significant stenosis. 6. 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 Electronically Signed: Steven Aponte MD at 1:01 EDT , 1 view chest x-ray obtained interpreted by myself as no evidence of infiltrate or pneumothorax or acute disease process. Radiology in agreement. EKG Initial EKG: Attestation: I personally reviewed and interpreted this EKG as follows: Comments: Sinus rhythm with ventricular rate of 61 bpm with no acute ST segment changes. Discharge Plan Triage Chief Complaint: Neuro S/Sx ED Provider: Markell Pino Dx/Rx/DC Orders Clinical Impression: Blurred vision, Anxiety Instructions: ED Anxiety Reaction, ED Blurred Vision Prescriptions: No Action bupropion HCl [Wellbutrin SR] 100 mg tablet sustained-release 12 hr 100 mg PO DAILY atenolol 25 MG tablet 25 mg PO DAILY Patient Comments: BP clopidogrel 75 MG tablet 75 mg PO DAILY Patient Comments: ANTIPLATLET amlodipine 5 MG tablet 5 mg PO DAILY Patient Comments: BP pantoprazole 40 MG tablet 20 mg PO BID Patient Comments: STOMACH nitroglycerin 0.4 MG tablet 0.4 mg Sublingual Q5M PRN (Reason: Chest Pain) sertraline 100 mg tablet 100 mg PO DAILY Patient Comments: MOOD levothyroxine 50 mcg tablet 50 mcg PO DAILY Patient Comments: THYROID atorvastatin 80 mg tablet 80 mg PO QHS Qty: 30 12RF Primary Care Provider: Laurie Finley Referrals: Laurie Finley MD [Primary Care Provider] - 3-5 Days Print Language: Telugu Disposition Disposition: Home, Self Care
--- OUTSIDE RECORDS SUMMARY | 2024-04-07 22:55 | XMS RPT_ITS | CCD ---
Author Organization [facility] Care Team Providers Care Aoc Plans Intelligence Officer Chief Name Role Phone STANISLAW KONG (VANESSA) Unavailable Unavail able Rohan Celeste Unavailable Unavailable Blanka RN, Penelope Silveira Unavailable Jose Hyde MD Primary Care Provider Sergio White Unavailable Jose Hyde MD Primary Care Provider Sergio White Unavailable Sergio White Unavailable Jose Hyde MD Primary Care Provider Sergio White Unavailable Sergio White MD Unavailable Jose Hyde MD Primary Care Provider TALAMPAS, JOSE D Primary Care Unavailable DIONI, IRENE Attending Unavailable TALAMPAS, JOSE D Primary Care Unavailable TALAMPAS, JOSE D Referring Unavailable TALAMPAS, JOSE D Primary Care Unavailable DIONI, IRENE Attending Unavailable TALAMPAS, JOSE D Primary Care Unavailable DIONI, IRENE Referring Unavailable TALAMPAS, JOSE D Referring Unavailable TALAMPAS, JOSE D Primary Care Unavailable TALAMPAS, JOSE D Attending Unavailable TALAMPAS, JOSE D Primary Care Unavailable TALAMPAS, JOSE D Primary Care Unavailable DIONI, IRENE Referring Unavailable TALAMPAS, JOSE D Primary Care Unavailable DIONI IRENE Attending Unavailable KARLA CHAMPION Referring Unavailable TALAMPAS, JOSE D Primary Care Unavailable KARLA CHAMPION Attending Unavailable TALAMPAS, JOSE D Primary Care Unavailable Allergies Allergy Classification Reported Allergen(s) Allergy Type Date of Onset Reaction(s) Facility (20 sources) codeine; Translations: [CODEINE] [facility] Rep[facility] (20 sources) morphine; Translations: [MORPHINE] Drug Allergy 8 Other: See Comments [facility] Repository (20 sources) Penicillins; Translations: [PENICILLINS] Propensity to adverse reactions to drug (disorder) 8 Anaphylaxis [facility] Repository (20 sources) propoxyphene; Translations: [PROPOXYPHENE HCL] Drug Allergy 8 Hives [facility] Repository (20 sources) simvastatin; Translations: [SIMVASTATIN] Drug Allergy 2 Other: See Comments [facility] Repository (2 sources) Lisinopril Drug Allergy 3 cough [facility] Work Phone: [phone] (2 sources) Penicillin Drug Allergy 2 [facility] Work Phone: [phone] (2 sources) Propoxyphene Drug Allergy 2 [facility] Work Phone: [phone] Medications Current Medications Medication Drug Class(es) Dates Sig (Normalized) Sig (Original) amLODIPine 10 mg oral tablet (20 sources) Dihydropyridine Calcium Channel Nurys Start: 08-09-2021 End: 10-12-2023 take 1 tablet by mouth once daily amLODIPine (NORVASC) 10 mg tablet Take 1 tablet by mouth once daily. 90 tablet 3 10/12/2023 Active Start: 08-30-2012 take 1 tablet by kenneth th once daily NORVASC 5 MG TABS One tablet by mouth daily AMLODIPINE BESYLATE [id number] Bridgett Graham RN Comment on above: Take 1 tablet by kenneth th once daily. atorvastatin 80 mg oral tablet (20 sources) HMG-CoA Reductase Inhibitor Start: 07-25-19 take 1 tablet by mouth once daily at bedtime for hyperlipidemia atorvastatin (LIPITOR) 80 mg tablet Take 1 tablet by mouth daily at bedtime. For cholesterol. 90 tablet 3 07/25/2023 Active Start: 12-06-2021 End: 06-29-2022 take 1 tablet by mouth once daily at bedtime for hyperlipidemia atorvastatin (LIPITOR) 80 mg tablet Take 1 tablet by mouth daily at bedtime. For cholesterol. 90 tablet 3 06/29/2022 Active Start: 07-26-2021 take 1 tablet by kenneth th once daily at bedtime for hyperlipidemia atorvastatin (LIPITOR) 80 mg tablet Take 1 tablet by mouth daily at bedtime. For cholesterol. 30 tablet 0 07/26/2021 Active Start: 04-11-2012 End: 04-12-2012 take 1 tablet by mouth at bedtime ATORVASTATIN CALCIUM 20 MG TABS One tablet by mouth at bedtime. ATORVASTATIN CALCIUM [id number] Sergio White MD Comment on above: Take 1 tablet by kenneth th daily at bedtime. For cholesterol. cholecalciferol 0.1 mg oral capsule (20 sources) Vitamin D take 1 capsule by mouth once cholecalciferol, vitamin D3, 100 mcg (4,000 unit) cap Indications: Vitamin D deficiency Take by mouth. Active cholecalciferol, vitamin D3, 100 mcg (4,000 unit) cap Indications: Vitamin D deficiency Take by mouth. 0 Active cholecalciferol, vitamin D3, (VITAMIN D3) 4,000 unit cap Indications: Vitamin D deficiency Take by mouth. 0 Active Comment on above: Take by mouth. 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 30 tablet 4 11/19/2021 Active Start: 04-11-2012 take 1 tablet by kenneth th once daily CLOPIDOGREL BISULFATE 75 MG TABS One tablet by mouth daily CLOPIDOGREL BISULFATE [id number] Bridgett Graham RN Comment on above: Take 1 tablet by kenneth th once daily. ferrous sulfate 325 mg oral tablet (20 sources) Start: 11-09-2022 take 1 tablet by mouth every other day ferrous sulfate 325 mg (65 mg iron) tablet Take 1 tablet by mouth every other day. 45 tablet 3 11/09/2022 Active Start: 12-06-2021 take 1 tablet by kenneth th every other day ferrous sulfate 325 mg (65 mg iron) tablet Take 1 tablet by mouth every other day. 45 tablet 3 12/06/2021 Active Start: 07-26-2021 take 1 tablet by kenneth th every other day ferrous sulfate 325 mg (65 mg iron) tablet Take 1 tablet by mouth every other day. 45 tablet 1 07/26/2021 Active Start: 07-12-2012 End: 01-01-2014 take 1 tablet by mouth twice daily FERROUS SULFATE 325 (65 Fe) MG TABS One tablet by mouth twice daily FERROUS SULFATE [id number] Sergio White MD Comment on above: Take 1 tablet by kenneth th every other day. levothyroxine sodium 0.025 mg oral tablet (20 sources) l-Thyroxine Start: End: take 1 tablet by mouth once daily before breakfast levothyroxine (SYNTHROID) 25 mcg tablet Indications: Acquired hypothyroidism Take 1 tablet by mouth daily before breakfast. 90 tablet 1 03/20/2024 Active Start: 03-23-2023 take 1 tablet by kenneth th once daily before breakfast levothyroxine (SYNTHROID) 25 mcg tablet Indications: Acquired hypothyroidism Take 1 tablet by mouth daily before breakfast. 90 tablet 0 03/23/2023 Active Start: 02-09-2021 End: 02-15-2022 take 1 tablet by mouth once daily before breakfast levothyroxine (SYNTHROID) 25 mcg tablet Indications: Acquired hypothyroidism Take 1 tablet by mouth daily before breakfast. 90 tablet 3 02/15/2022 Active Start: 04-11-2012 take 1 tablet by kenneth th once daily LEVOTHYROXINE SODIUM 50 MCG TABS One tablet by mouth daily LEVOTHYROXINE SODIUM [id number] Bridgett Graham RN Comment on above: Take 1 tablet by kenneth th daily before breakfast. loperamide hydrochloride 2 mg oral capsule (20 sources) Opioid Agonist Start: 06-26-2023 End: 03-19-2024 loperamide (IMODIUM) 2 mg cap(s) Indications: Loose stools Take 2 at onset of loose stools, then 1 after each loose stool as needed up to 6 pills per day 100 capsule 2 03/20/2024 Active Start: 03-23-2023 loperamide (IM ODIUM) 2 mg cap(s) Indications: Loose stools Take 2 at onset of loose stools, then 1 after each loose stool as needed up to 6 pills per day 100 capsule 2 03/23/2023 Active Start: 05-20-2022 End: 06-29-2022 loperamide (IMODIUM) 2 mg ca p(s) Indications: Loose stools Take 2 at onset of loose stools, then 1 after each loose stool as needed up to 6 pills per day 100 capsule 5 06/29/2022 Active Start: 05-19-2020 loperamide (IM ODIUM) 2 mg cap(s) Indications: Loose stools Take one every morning. May repeat as needed. 100 capsule 5 05/19/2020 Active Comment on above: Take one every morni ng. May repeat as needed. Take once daily as n eeded or as directed. 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 DISSOLVE ON TONGUE FOR CHEST PAIN. IF NO PAIN RELIEF, CALL 911 25 tablet 3 06/29/2022 Active Start: 04-11-2012 End: 03-29-2013 NITROSTAT 0.4 MG SUBL 1 tabl et under tongue every 5 min up to 3 X NITROGLYCERIN [id number] Sergio White MD Comment on above: Dissolve 1 tablet un ajay the tongue as needed. DISSOLVE ON TONGUE FOR CHEST PAIN. IF NO PAIN RELIEF, CALL 911 perflutren lipid microspheres 1.3 mL in NaCl (PF) 0.9% 10 mL injection (DEFINITY) (20 sources) Start: 08-09-19 End: 11-09-19 perflutren lipid microspheres 1.3 mL in NaCl (PF) 0.9% 10 mL injection (DEFINITY) QUEtiapine 100 mg oral tablet (14 sources) Atypical Antipsychotic Start: 06-26-19 End: 01-18-20 take 1 tablet by mouth once daily at bedtime QUEtiapine (SEROQUEL) 100 mg tablet Indications: Anxiety , Weight loss Take 1 tablet by mouth daily at bedtime. 90 tablet 1 01/19/2024 Active Start: 05-01-2023 take 1 tablet by kenneth th once daily at bedtime QUEtiapine (SEROQUEL) 50 mg tablet Indications: Weight loss , Anxiety Take 1 tablet by mouth daily at bedtime. 30 tablet 2 05/01/2023 Active Comment on above: Take 1 tablet by kenneth th daily at bedtime. sertraline 100 mg oral tablet (20 sources) Serotonin Reuptake Inhibitor Start: 11-24-2023 take 1 tablet by mouth once daily sertraline (ZOLOFT) 100 mg tablet Take 1 tablet by mouth once daily. 90 tablet 1 11/24/2023 Active Start: 11-09-2022 End: 05-08-2023 take 1 tablet by mouth once daily sertraline (ZOLOFT) 100 mg tablet Take 1 tablet by mouth once daily. 90 tablet 3 11/09/2022 Active Start: 11-23-2020 End: 05-18-2022 take 1 tablet by mouth once daily sertraline (ZOLOFT) 100 mg tablet Take 1 tablet by mouth once daily. 90 tablet 3 11/19/2021 Active Start: 04-12-2012 take 1 tablet by kenneth th twice daily ZOLOFT 100 MG TABS One tablet by mouth twice daily SERTRALINE HCL [id number] Sergio White MD Start: 04-11-2012 take 1 tablet by kenneth th once daily ZOLOFT 100 MG TABS One tablet by mouth daily SERTRALINE HCL [id number] Sergio White MD Comment on above: Take 1 tablet by kenneth th once daily. 125 ml sodium chloride 9 mg/ml prefilled syringe (20 sources) Start: 2 End: 3 sodium chloride 0.9 % (flush) 10 mL (BD POSIFLUSH) valACYclovir 500 mg oral tablet (20 sources) Herpesvirus Nucleoside Analog DNA Polymerase Inhibitor, Herpes Simplex Virus Nucleoside Analog DNA Polymerase Inhibitor, Herpes Zoster Virus Nucleoside Analog DNA Polymerase Inhibitor Start: 4 take 1 tablet by mouth once daily valACYclovir (VALTREX) 500 mg tablet Indications: Recurrent cold sores Take 1 tablet by mouth once daily. 90 tablet 3 07/25/2023 Active Start: 12-06-2021 End: 06-29-2022 take 1 tablet by mouth once daily valACYclovir (VALTREX) 500 mg tablet Indications: Recurrent cold sores Take 1 tablet by mouth once daily. 90 tablet 3 06/29/2022 Active Start: 05-05-2021 take 1 tablet by kenneth th once daily valACYclovir (VALTREX) 500 mg tablet Indications: Recurrent cold sores Take 1 tablet by mouth once daily. 0 05/05/2021 Active Comment on above: Take 1 tablet by kenneth th once daily. Completed/Discontinued Medications Medication Drug Class(es) Dates Sig (Normalized) Sig (Original) acetaminophen 325 mg / HYDROcodone bitartrate 5 mg oral tablet (2 sources) Opioid Agonist Start: 08-11-2015 HYDROCODONE-ACETA MINOPHEN 5-325 MG TABS as directed HYDROCODONE-ACETA MINOPHEN [id number] COREY ConroyC aspirin 81 mg delayed release oral tablet (20 sources) Platelet Aggregation Inhibitor, Nonsteroidal Anti-inflammatory Drug Start: 11-25-2010 take 1 tablet by mouth once daily aspirin, enteric coated (ASPIRIN, ENTERIC COATED) 81 mg EC tablet Take 1 tablet by mouth once daily. 0 11/25/2010 Active Comment on above: Take 1 tablet by kenneth th once daily. atenolol 25 mg oral tablet (20 sources) beta-Adrenergic Nurys Start: 03-17-2023 take 1 tablet by mouth once daily atenolol (TENORMIN) 25 mg tablet take 1 tablet by mouth daily 90 tablet 1 03/17/2023 Active Start: 04-21-2022 End: 08-25-2022 take 1 tablet by mouth once daily atenolol (TENORMIN) 25 mg tablet Take 1 tablet by mouth once daily. 90 tablet 1 08/26/2022 Active Start: 06-25-2021 End: 09-24-2021 take 1 tablet by mouth once daily atenolol (TENORMIN) 25 mg tablet Take 1 tablet by mouth once daily. 90 tablet 1 09/24/2021 Active Start: 04-11-2012 take 1 tablet by kenneth th once daily ATENOLOL 25 MG TABS One tablet by mouth daily ATENOLOL [id number] Bridgett Graham RN Comment on above: Take 1 tablet by kenneth th once daily. take 1 tablet by kenneth th daily Biotin (2 sources) Start: 7 BIOTIN CAPS via [employer] BIOTIN CAPS [id number] Tony Jackson MD bisacodyl 5 mg delayed release oral tablet (6 sources) Stimulant Laxative Start: 0 Bisacodyl (DULCOLAX) 5 mg tab Indications: Altered bowel habits Use as directed for Miralax / Gatorade Bowel Prep Kit 4 tablet 0 03/11/2020 Active Comment on above: Use as directed for Miralax / Gatorade Bowel Prep Kit 12 hr buPROPion hydrochloride 200 mg extended release oral tablet (20 sources) Aminoketone Start: 3 End: 3 take 1 tablet by mouth once daily buPROPion SR (WELLBUTRIN SR) 200 mg 12 hr tablet Take 1 tablet by mouth once daily. 90 tablet 3 03/28/2023 05/01/2023 Discontinued Start: 02-09-2021 End: 03-28-2023 take 1 tablet by mouth once daily buPROPion (WELLBUTRIN) 100 mg tablet Take 1 tablet by mouth once daily. 90 tablet 3 06/29/2022 03/28/2023 Discontinued Start: 04-12-2012 take 1 tablet by kenneth th twice daily WELLBUTRIN 100 MG TABS One tablet by mouth twice daily BUPROPION HCL [id number] Sergio White MD Start: 04-11-2012 take 1 tablet by kenneth th once daily WELLBUTRIN 100 MG TABS One tablet by mouth daily BUPROPION HCL [id number] Sergio White MD Comment on above: Take 1 tablet by kenneth th once daily. clonazePAM 0.5 mg oral tablet (5 sources) Benzodiazepine Start: 8 take 1 tablet by mouth once daily as needed clonazePAM (KLONOPIN) 0.5 mg tablet Indications: Bipolar disorder, current episode manic without psychotic features, severe (HCC) Take 1 tablet by mouth once daily as needed for up to 60 days. 30 tablet 1 03/19/2018 Active Start: 04-11-2012 take 1 tablet by kenneth th once daily CLONAZEPAM 0.5 MG TABS One tablet by mouth daily CLONAZEPAM [id number] Bridgett Graham RN Comment on above: Take 1 tablet by kenneth th once daily as needed for up to 60 days. cloNIDine hydrochloride 0.1 mg oral tablet (16 sources) Central alpha-2 Adrenergic Agonist Start: 4 End: 4 take 1 tablet by mouth once daily CLONIDINE HCL 0.1 MG TABS One tablet by mouth daily CLONIDINE HCL [id number] Bridgett Graham RN Start: 12-17-2012 End: 03-29-2013 take 1 tablet by mouth once daily CLONIDINE HCL 0.1 MG TABS One tablet by mouth daily CLONIDINE HCL [id number] Penelope Koengi PA-C Start: 04-12-2012 End: 10-19-2012 take 0.5 tablet by mouth twice daily CLONIDINE HCL 0.1 MG TABS 1/2 tablet by mouth twice daily CLONIDINE HCL [id number] Penelope Koenig PA-C Start: 04-11-2012 take 1 tablet by kenneth th twice daily CLONIDINE HCL 0.1 MG TABS One tablet by mouth twice daily CLONIDINE HCL [id number] Bridgett Graham RN dicyclomine hydrochloride 10 mg oral capsule (20 sources) Anticholinergic Start: 06-29-2022 End: 03-28-2023 take 1 capsule by mouth twice daily dicyclomine (BENTYL) 10 mg capsule Indications: Diarrhea , Irritable bowel syndrome Take 1 capsule by mouth twice daily. as directed- 60 capsule 3 07/26/2022 03/28/2023 Discontinued Start: 04-11-2012 End: 04-12-2012 take 1 tablet by mouth twice daily DICYCLOMINE HCL 10 MG CAPS One tablet by mouth twice daily DICYCLOMINE HCL [id number] Sergio White MD Start: 04-11-2012 take 1 tablet by kenneth four times daily DICYCLOMINE HCL 10 MG CAPS One tablet by mouth four times daily DICYCLOMINE HCL [id number] Sergio White MD Comment on above: Take 1 capsule by mo [place] twice daily. as directed- ergocalciferol 03538 unt oral capsule (8 sources) Provitamin D2 Compound Start: 04-12-20 take 1 tablet by mouth every month VITAMIN D (ERGOCALCIFEROL) 84090 UNIT CAPS One tablet by mouth month ERGOCALCIFEROL [id number] Penelope Koenig PA-C Start: 04-11-2012 End: 04-12-2012 take 1 tablet by mouth every week VITAMIN D (ERGOCALCIFEROL) 90392 UNIT CAPS One tablet by mouth weekly ERGOCALCIFEROL [id number] Sergio White MD gabapentin 300 mg oral capsule (7 sources) Anti-epileptic Agent Start: 02-20-2020 take 2 capsules by mouth once daily at bedtime gabapentin (NEURONTIN) 300 mg capsule Indications: 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 As directed 0 02/20/2020 Active Start: 08-11-2015 End: 03-20-2017 GABAPENTIN 300 MG CAPS as di rected GABAPENTIN [id number] Penelope Koenig PA-C Comment on above: Take 2 capsules by m outh daily at bedtime. As directed Gatorade Sports Drink (6 sources) Start : 03-11 Gatorade Sports Drink Indications: Altered bowel habits Use as directed for Miralax / Gatorade Bowel Prep Kit 64 oz 0 03/11/2020 Active Comment on above: Use as directed for Miralax / Gatorade Bowel Prep Kit hydroCHLOROthiazide 25 mg oral tablet (8 sources) Thiazide Diuretic Start : 04-11 End: 06-30 take 1 tablet by mouth once daily HYDROCHLOROTHIAZIDE 25 MG TABS One half tablet by mouth daily HYDROCHLOROTHIAZIDE [id number] Penelope Koenig PA-C hydrocortisone 25 mg/ml topical lotion (4 sources) Corticosteroid Start : 04-11 End: 06-30 HYDROCORTISONE 2.5 % LOTN Apply as directed HYDROCORTISONE [id number] Bridgett Graham RN hydrOXYzine hydrochloride 25 mg oral tablet (2 sources) Antihistamine Start : 04-11 HYDROXYZINE HCL 25 MG TABS (Atarax) As needed HYDROXYZINE HCL [id number] Bridgett Graham RN ibuprofen 800 mg oral tablet (4 sources) Nonsteroidal Anti-inflammatory Drug Start : 04-12 End: 08-30 IBUPROFEN 800 MG TABS as needed IBUPROFEN [id number] Sergio White MD L.acid/L.casei/B.bif/B.lo n/FOS (PROBIOTIC BLEND ORAL) (5 sources) take 1 capsule by mouth once daily L.acid/L.casei/B.bif/B.l on/FOS (PROBIOTIC BLEND ORAL) Take 1 capsule by mouth once daily. 0 Active Comment on above: Take 1 capsule by [facility] once daily. lisinopril 20 mg oral tablet (4 sources) Angiotensin Converting Enzyme Inhibitor Start : 04-12 End: 08-30 take 1 tablet by mouth twice daily LISINOPRIL 20 MG TABS One tablet by mouth twice daily LISINOPRIL [id number] Sergio White MD losartan potassium 100 mg oral tablet (4 sources) Angiotensin 2 Receptor Nurys Start : 08-30 End: 07-25 take 1 tablet by mouth once daily COZAAR 100 MG TABS One tablet by mouth daily LOSARTAN POTASSIUM [id number] Bridgett Graham RN nystatin 100 unt/mg topical powder (20 sources) Polyene Antifungal Start : 02-19 End: 10-15 nystatin (MYCOSTATIN) powder Indications: Candidiasis Apply 1 application to affected area three times daily. 1 Bottle 0 02/20/2020 10/16/2023 Discontinued Comment on above: Apply 1 application to affected area three times daily. OMEGA-3 FATTY ACIDS CPDR (6 sources) Start : 04-12 End: 06-30 take 3 tablets by mouth at bedtime OMEGA 3 CPDR 3 tablets by mouth at bedtime. OMEGA-3 FATTY ACIDS CPDR [id number] Penelope Koenig PA-C Start: 04-12-2012 take 3 tablets by mo uth at bedtime OMEGA 3 CPDR 3 tablets by mouth at bedtime. OMEGA-3 FATTY ACIDS CPDR [id number] Sergio White MD Start: 04-11-2012 OMEGA 3 CPDR 1 ,000 mg One capsule three times daily OMEGA-3 FATTY ACIDS CPDR [id number] Bridgett Graham RN pantoprazole 40 mg delayed release oral tablet (20 sources) Proton Pump Inhibitor Start: 07-26-2022 End: 01-25-2023 take 1 tablet by mouth once daily pantoprazole DR (PROTONIX) 40 mg tablet Take 1 tablet by mouth once daily. 30 tablet 5 01/25/2023 Active Start: 02-09-2021 End: 07-26-2022 take 1 tablet by mouth twice daily pantoprazole DR (PROTONIX) 20 mg tablet Take 1 tablet by mouth twice daily. 180 tablet 3 06/29/2022 07/26/2022 Discontinued Start: 04-11-2012 take 1 tablet by kenneth th once daily PROTONIX 40 MG SOLR One tablet by mouth daily PANTOPRAZOLE SODIUM [id number] Bridgett Graham RN Start: 04-11-2012 take 1 tablet by kenneth th twice daily PROTONIX 40 MG SOLR One half tablet by mouth twice daily PANTOPRAZOLE SODIUM [id number] Sergio White MD Start: 04-11-2012 take 2 tablets by mo uth once daily PROTONIX 20 MG TBEC Two tablets by mouth daily. PANTOPRAZOLE SODIUM [id number] John Santiago NP Comment on above: Take 1 tablet by kenneth th twice daily. Take 1 tablet by kenneth th once daily. polyethylene glycol 3350 13291 mg powder for oral solution (5 sources) Osmotic Laxative Start: 0 polyethylene glycol 3350 (MIRALAX, GLYCOLAX) 17 gram/dose powder Indications: Altered bowel habits Use as directed for Miralax / Gatorade Bowel Prep Kit 238 g 0 03/11/2020 Active Comment on above: Use as directed for Miralax / Gatorade Bowel Prep Kit potassium chloride 20 meq extended release oral tablet (8 sources) Start: 4 End: 4 take 1 tablet by mouth once daily KLOR-CON M20 20 MEQ CR-TABS One tablet by mouth daily POTASSIUM CHLORIDE THERON CR [id number] Franchesca Woodruff RN Start: 04-11-2012 End: 08-30-2012 take 1 tablet by mouth four times daily KLOR-CON M20 20 MEQ CR-TABS One tablet by mouth four times daily POTASSIUM CHLORIDE THERON CR [id number] Bridgett Graham RN pravastatin sodium 40 mg oral tablet (4 sources) HMG-CoA Reductase Inhibitor Start: 08-30-2012 End: 01-01-2014 take 1 tablet by mouth at bedtime PRAVACHOL 40 MG TABS One tablet by mouth at bedtime. PRAVASTATIN SODIUM [id number] Bridgett Graham RN spironolactone 25 mg oral tablet (4 sources) Aldosterone Antagonist Start: 08-30-2012 End: 01-17-2014 take 1 tablet by mouth once daily ALDACTONE 25 MG TABS One tablet by mouth daily SPIRONOLACTONE [id number] Franchesca Woodruff RN sulfacetamide sodium 100 mg/ml / sulfur 50 mg/ml medicated liquid soap (4 sources) Sulfonamide Antibacterial Start: 04-11-2012 End: 06-30-2014 SULFACETAMIDE-SULFU R IN UREA EMUL apply topically as directed SULFACETAMIDE-SULFU R IN UREA EMUL [id number] Penelope Koenig PA-C traMADol hydrochloride 50 mg oral tablet (4 sources) Opioid Agonist Start: 12-29-2014 End: 08-11-2015 take 1 tablet by mouth once daily TRAMADOL HCL 50 MG TABS One tablet by mouth daily TRAMADOL HCL [id number] Penelope Koenig PA-C zonisamide 50 mg oral capsule (2 sources) Anti-epileptic Agent Start: 08-11-2015 ZONISAMIDE 50 MG CAPS as directed ZONISAMIDE [id number] Penelope Koenig PA-C Problems Active Problems Problem Classification Problem Date Documented Da te Episodic/Chronic Abdominal hernia (1 source) Incisional hernia; Translations: [Incisional hernia without obstruction or gangrene] Episodic Adjustment disorders (2 sources) Family tension; Translations: [Reaction to severe stress, unspecified] 05-01-2023 Chronic Anxiety disorders (3 sources) Anxiety; Translations: [Anxiety disorder, unspecified] 05-01-2023 Chronic Cancer of other female genital organs (20 sources) Carcinoma in situ of vulva; Translations: [Carcinoma in situ of vulva] Onset: 1 10-14-2010 Chronic Congestive heart failure; nonhypertensive (11 sources) Chronic diastolic heart failure; Translations: [Chronic diastolic (congestive) heart failure] Onset: 4 Chronic Coronary atherosclerosis and other heart disease (20 sources) Atherosclerotic heart disease of [place] coronary artery without angina pectoris; Translations: [Coronary arteriosclerosis] Onset: 1 02-24-2016 Chronic Deficiency and other anemia (9 sources) Iron deficiency anemia due to blood loss; Translations: [Iron deficiency anemia secondary to blood loss (chronic)] Onset: 6 Resolved: 6 06-24-2015 Chronic Deficiency and other anemia (20 sources) Anemia; Translations: [Anemia, unspecified] 04-05-2010 Episodic Diabetes mellitus without complication (1 source) Hyperglycemia; Translations: [Impaired fasting glucose] 04-28-2023 Episodic Disorders of lipid metabolism (20 sources) Hyperlipidemia; Translations: [Mixed hyperlipidemia] Onset: 8 04-11-2012 Chronic Diverticulosis and diverticulitis (20 sources) Diverticulosis of colon; Translations: [Diverticulosis of large intestine without perforation or abscess without bleeding] 12-05-2007 Chronic Esophageal disorders (20 sources) Gastroesophageal reflux disease; Translations: [Gastro-esophageal reflux disease without esophagitis] Onset: 5 06-16-2015 Chronic Essential hypertension (20 sources) Hypertensive disorder; Translations: [Essential hypertension] Onset: 2 04-11-2012 Chronic Heart valve disorders (1 source) Mitral valve regurgitation; Translations: [Nonrheumatic mitral (valve) insufficiency] Chronic Mood disorders (20 sources) Bipolar disorder; Translations: [Bipolar disorder, unspecified] 12-05-2007 Chronic Neoplasms of unspecified nature or uncertain behavior (20 sources) Monoclonal gammopathy of uncertain significance; Translations: [Monoclonal gammopathy] Onset: 6 10-08-2015 Chronic Nutritional deficiencies (20 sources) Vitamin D deficiency; Translations: [Vitamin D deficiency, unspecified] Onset: 0 08-20-2009 Chronic Occlusion or stenosis of precerebral arteries (12 sources) Bilateral stenosis of carotid arteries; Translations: [Occlusion and stenosis of bilateral carotid arteries] Onset: 4 07-16-2023 Chronic Osteoarthritis (20 sources) Degenerative joint disease involving multiple joints; Translations: [Polyosteoarthritis, unspecified] 12-05-2007 Chronic Other acquired deformities (1 source) Scoliosis, unspecified; Translations: [Scoliosis, unspecified] Onset: 7 Chronic Other acquired deformities (20 sources) Scoliosis of lumbar spine; Translations: [Scoliosis, unspecified] Onset: 7 09-09-2016 Chronic Other aftercare (1 source) Patient encounter status; Translations: [Encounter for therapeutic drug level monitoring] 10-16-2023 Episodic Other circulatory disease (2 sources) Peripheral arterial occlusive disease; Translations: [Peripheral vascular disease, unspecified] Onset: 6 08-11-2015 Chronic Other gastrointestinal disorders (20 sources) Irritable bowel syndrome; Translations: [Irritable bowel syndrome without diarrhea] Onset: 8 12-05-2007 Chronic Other gastrointestinal disorders (1 source) Abdominal mass; Translations: [Intra-abdominal and pelvic swelling, mass and lump, unspecified site] Episodic Other gastrointestinal disorders (5 sources) Loose stool; Translations: [Other fecal abnormalities] Episodic Other liver diseases (20 sources) Steatosis of liver; Translations: [Fatty (change of) liver, not elsewhere classified] Onset: 1 03-23-2011 Chronic Other nutritional; endocrine; and metabolic disorders (3 sources) Weight loss; Translations: [Abnormal weight loss] 05-01-2023 Episodic Peripheral and visceral atherosclerosis (20 sources) Peripheral vascular disease, unspecified; Translations: [Peripheral vascular disease, unspecified] Onset: 3 05-15-2013 Chronic Residual codes; unclassified (2 sources) Tobacco use and exposure - finding; Translations: [Tobacco use] Episodic Spondylosis; intervertebral disc disorders; other back problems (20 sources) Prolapsed lumbar intervertebral disc with sciatica; Translations: [Intervertebral disc disorders with radiculopathy, lumbar region] 06-14-2021 Episodic Thyroid disorders (20 sources) Acquired hypothyroidism; Translations: [Hypothyroidism, unspecified] Onset: 8 12-18-2017 Chronic Unclassified (2 sources) Long-term drug therapy; Translations: [Other correction (current) drug therapy] Onset: 6 08-20-2015 Viral infection (1 source) Recurrent herpes simplex labialis; Translations: [Herpesviral vesicular dermatitis] Episodic Past or Other Problems Problem Classification Problem Date Documented Da te Episodic/Chronic Acute myocardial infarction (9 sources) Acute myocardial infarction; Translations: [ST elevation (STEMI) myocardial infarction involving other sites] Resolved: 7 09-12-2016 Chronic Allergic reactions (20 sources) Solar degeneration; Translations: [Other skin changes due to chronic exposure to nonionizing radiation] Onset: 0 05-05-2010 Episodic Cardiac dysrhythmias (2 sources) Palpitations; Translations: [Palpitations] Onset: 7 03-20-2017 Episodic Conditions associated with dizziness or vertigo (2 sources) Lightheadedness; Translations: [Dizziness and giddiness] Onset: 7 03-20-2017 Episodic Coronary atherosclerosis and other heart disease (20 sources) History of myocardial infarction; Translations: [Stented coronary artery] Onset: 1 04-12-2012 Episodic Deficiency and other anemia (20 sources) Iron deficiency anemia; Translations: [Iron deficiency anemia, unspecified] Onset: 6 10-08-2015 Episodic Deficiency and other anemia (1 source) Iron deficiency anemia, unspecified; Translations: [Iron deficiency anemia, unspecified iron deficiency anemia type] Onset: 6 Episodic Fluid and electrolyte disorders (20 sources) Hypokalemia; Translations: [Hypokalemia] Onset: 0 12-03-2009 Episodic Gastritis and duodenitis (20 sources) Acute gastritis; Translations: [Acute gastritis without bleeding] Onset: 0 04-20-2010 Episodic Malaise and fatigue (3 sources) Fatigue; Translations: [Other fatigue] Onset: 2 04-12-2012 Episodic Nonspecific chest pain (2 sources) Chest pain, unspecified; Translations: [Chest pain, unspecified] Onset: 2 04-12-2012 Episodic Other aftercare (1 source) Encounter for therapeutic drug level monitoring; Translations: [Encounter for therapeutic drug monitoring] Onset: 4 Episodic Other connective tissue disease (20 sources) History of lumbar fusion; Translations: [Arthrodesis status] Onset: 7 09-29-2016 Episodic Other gastrointestinal disorders (20 sources) Diarrhea; Translations: [Diarrhea, unspecified] Onset: 0 04-20-2010 Episodic Other injuries and conditions due to external causes (2 sources) Injury, unspecified; Translations: [Injury, unspecified] Onset: 3 08-16-2012 Episodic Other injuries and conditions due to external causes (20 sources) Excoriation of skin; Translations: [Other injury of unspecified body region, initial encounter] Onset: 0 05-05-2010 Episodic Other nutritional; endocrine; and metabolic disorders (8 sources) Body mass index (BMI) 26.0-26.9, adult; Translations: [Body mass index (BMI) 25.0-25.9, adult] Onset: 4 Resolved: 7 01-01-2014 Episodic Other screening for suspected conditions (not mental disorders or infectious disease) (20 sources) Other specified abnormal findings of blood chemistry; Translations: [Other abnormal blood chemistry] Onset: 1 06-14-2021 Episodic Other skin disorders (20 sources) Acne; Translations: [Other acne] Onset: 0 05-05-2010 Episodic Other skin disorders (20 sources) Asteatosis cutis; Translations: [Xerosis cutis] Onset: 0 05-05-2010 Episodic Other skin disorders (20 sources) Solar lentigo; Translations: [Other melanin hyperpigmentation] Onset: 0 05-05-2010 Episodic Other skin disorders (20 sources) Scar; Translations: [Scar conditions and fibrosis of skin] Onset: 1 06-01-2011 Episodic Residual codes; unclassified (2 sources) FH: Hypertension; Translations: [Family history of ischemic heart disease and other diseases of the circulatory system] 06-30-2014 Episodic Residual codes; unclassified (2 sources) Family history of stroke; Translations: [Family history of stroke] 06-30-2014 Episodic Residual codes; unclassified (20 sources) Family history of malignant neoplasm of gastrointestinal tract; Translations: [Family history of malignant neoplasm of digestive organs] Onset: 0 04-20-2010 Episodic Residual codes; unclassified (9 sources) Family history of cancer of colon; Translations: [Family history of malignant neoplasm of digestive organs] Onset: 6 Resolved: 6 06-24-2015 Episodic Skin and subcutaneous tissue infections (20 sources) Pyoderma; Translations: [Pyoderma] Onset: 0 05-05-2010 Episodic Results Test Name Value Interpretation Reference Range Facility [facility] 03-13-2024 [facility] Telephone (INTWS) ROBI OLIVARES ([id number]) 1950 F Date Time Provider [facility] [place] your visit today, we recorded the following information about you: Corinna Rodriguez LPN 03/13/2024 9:37 AM Signed [email or web address] requesting a copy of office visit notes. Last office visit dated 10/16/23 was printed and faxed back. Allergies As of Date: 03/13/2024 Noted Allergy Reaction CODEINE 10/11/2007 4 - Hives DARVON (PROPOXYPHENE HCL) 10/11/2007 4 - Hives MORPHINE 09/14/2017 14 - Other: See Comments Comments: Made tongue swell PENICILLINS 10/11/2007 10 - Anaphylaxis SIMVASTATIN 04/17/2012 14 - Other: See Comments Comments: elevated LFTS; had tolerated Lipitor for years without problem Date Reviewed: 10/16/2023 Reviewed by: Irene Wheatley APRN.CE[employer]ANE [employer] - Fully Assessed Reason for Visit: Forms [913] Cmt: Dana HIPAA Compliant Physician Authorization form Prescriptions as of 03/13/2024 - QUEtiapine (SEROQUEL) 100 mg tablet Take 1 tablet by mouth daily at bedtime. - levothyroxine (SYNTHROID) 25 mcg tablet Take 1 tablet by mouth daily before breakfast. - loperamide (IMODIUM) 2 mg cap(s) Take 2 at onset of loose stools, then 1 after each loose stool as needed up to 6 pills per day - sertraline (ZOLOFT) 100 mg tablet Take 1 tablet by mouth once daily. - amLODIPine (NORVASC) 10 mg tablet Take 1 tablet by mouth once daily. - valACYclovir (VALTREX) 500 mg tablet Take 1 tablet by mouth once daily. - atorvastatin (LIPITOR) 80 mg tablet Take 1 tablet by mouth daily at bedtime. For cholesterol. - clopidogrel (PLAVIX) 75 mg tablet Take 1 tablet by mouth once daily. - ferrous sulfate 325 mg (65 mg iron) tablet Take 1 tablet by mouth every other day. - nitroglycerin sublingual (NITROQUICK) 0.4 mg SL tablet Dissolve 1 tablet under the tongue as needed. DISSOLVE ON TONGUE FOR CHEST PAIN. IF NO PAIN RELIEF, CALL 911 - cholecalciferol, vitamin D3, 100 mcg (4,000 unit) cap Take by mouth. Problem List As Of Date 03/13/2024 Noted Resolved Essential hypertension [I10] MIXED HYPERLIPIDEMIA [E78.2] BIPOLAR DISORDER NOS [F31.9] Acquired hypothyroidism [E03.9] Acute myocardial infarction of other specified * 09/12/2016 DIVERTICULOSIS OF COLON W/O BLEED [K57.30] GENERAL OSTEOARTHROSIS [M15.9] IRRITABLE COLON [K58.9] 12/05/2007 ASCVD [I25.10] Vitamin D Deficiency [E55.9] 08/20/2009 Hypokalemia [E87.6] 12/03/2009 Anemia [D64.9] Acute gastritis without mention of hemorrhage [*04/20/2010 Duodenitis without mention of hemorrhage [K29.8*04/20/2010 Diarrhea [R19.7] 04/20/2010 Family history of malignant neoplasm of gastroi*04/20/2010 Pyoderma, unspecified [L08.0] 05/05/2010 Acne Vulgaris: Inflammatory Grade III to IV: no*05/05/2010 Excoriations [T14.8XXA] 05/05/2010 Xerosis cutis [L85.3] 05/05/2010 Solar lentigines [L81.4] 05/05/2010 Actinic Damage//Sun-damaged skin [L57.8] 05/05/2010 CAD (coronary artery disease), picayune coronary *10/14/2010 Coronary stent 10/14/2010 Carcinoma in situ, 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] 11/05/2010 Elevated LFTs [R79.89] 03/23/2011 Fatty infiltration of liver [K76.0] 03/23/2011 Acne Scars [L90.5] 06/01/2011 IBS (irritable bowel syndrome) [K58.9] PAD (peripheral artery disease) [I73.9] 05/15/2013 Sciatica due to displacement of lumbar interver* GERD (gastroesophageal reflux disease) [K21.9] 06/16/2015 Iron deficiency anemia due to chronic blood los*06/24/2015 06/24/2015 Family history of colon cancer [Z80.0] 06/24/2015 06/24/2015 MGUS (monoclonal gammopathy of unknown signific*10/08/2015 Iron deficiency anemia [D50.9] 10/08/2015 Scoliosis of lumbar spine [M41.9] 09/09/2016 S/P lumbar spinal fusion [Z98.1] 09/29/2016 Bilateral carotid artery stenosis [I65.23] 07/16/2023 Chronic diastolic CHF (congestive heart failure*10/16/2023 Encounter Status:Closed by CORINNA RODRIGUEZ on 03/13/24 [facility] ROBI OLIVARES ([id number]) 1950 F Date Time Provider Department 01/15/24 JOSE HYDE INTMWS During your visit today, we recorded the following information about you: Analy Lawler RN 01/15/2024 11:43 AM Signed Patient calls and states that if provider or office receives and faxes or calls regarding any medical supplies please do not reply. Patient has been receiving lots of calls from medical supply companies. Patient is not initiating those and does not want supplies. Patient has already been sent a blood pressure kit and a DNA kit that she never requested. Patient states that she also received a box full of medicines and sprays as well that patient never requested. Please do not send any form unless patient is contacted by office to see if this is legit. ZORAIDA Flores Janice, LPN 01/16/2024 1:48 PM Signed Rec'd and discarded. Allergies As of Date: 01/15/2024 Noted Allergy Reaction CODEINE 10/11/2007 4 - Hives DARVON (PROPOXYPHENE HCL) 10/11/2007 4 - Hives MORPHINE 09/14/2017 14 - Other: See Comments Comments: Made tongue swell PENICILLINS 10/11/2007 10 - Anaphylaxis SIMVASTATIN 04/17/2012 14 - Other: See Comments Comments: elevated LFTS; had tolerated Lipitor for years without problem Date Reviewed: 10/16/2023 Reviewed by: Irene Wheatley APRN.[facility] - Fully Assessed Reason for Visit: Forms [913] Prescriptions as of 01/16/2024 - levothyroxine (SYNTHROID) 25 mcg tablet Take 1 tablet by mouth daily before breakfast. - loperamide (IMODIUM) 2 mg cap(s) Take 2 at onset of loose stools, then 1 after each loose stool as needed up to 6 pills per day - sertraline (ZOLOFT) 100 mg tablet Take 1 tablet by mouth once daily. - amLODIPine (NORVASC) 10 mg tablet Take 1 tablet by mouth once daily. - valACYclovir (VALTREX) 500 mg tablet Take 1 tablet by mouth once daily. - atorvastatin (LIPITOR) 80 mg tablet Take 1 tablet by mouth daily at bedtime. For cholesterol. - clopidogrel (PLAVIX) 75 mg tablet Take 1 tablet by mouth once daily. - QUEtiapine (SEROQUEL) 100 mg tablet Take 1 tablet by mouth daily at bedtime. - ferrous sulfate 325 mg (65 mg iron) tablet Take 1 tablet by mouth every other day. - nitroglycerin sublingual (NITROQUICK) 0.4 mg SL tablet Dissolve 1 tablet under the tongue as needed. DISSOLVE ON TONGUE FOR CHEST PAIN. IF NO PAIN RELIEF, CALL 911 - cholecalciferol, vitamin D3, 100 mcg (4,000 unit) cap Take by mouth. Problem List As Of Date 01/15/2024 Noted Resolved Essential hypertension [I10] MIXED HYPERLIPIDEMIA [E78.2] BIPOLAR DISORDER NOS [F31.9] Acquired hypothyroidism [E03.9] Acute myocardial infarction of other specified * 09/12/2016 DIVERTICULOSIS OF COLON W/O BLEED [K57.30] GENERAL OSTEOARTHROSIS [M15.9] IRRITABLE COLON [K58.9] 12/05/2007 ASCVD [I25.10] Vitamin D Deficiency [E55.9] 08/20/2009 Hypokalemia [E87.6] 12/03/2009 Anemia [D64.9] Acute gastritis without mention of hemorrhage [*04/20/2010 Duodenitis without mention of hemorrhage [K29.8*04/20/2010 Diarrhea [R19.7] 04/20/2010 Family history of malignant neoplasm of gastroi*04/20/2010 Pyoderma, unspecified [L08.0] 05/05/2010 Acne Vulgaris: Inflammatory Grade III to IV: no*05/05/2010 Excoriations [T14.8XXA] 05/05/2010 Xerosis cutis [L85.3] 05/05/2010 Solar lentigines [L81.4] 05/05/2010 Actinic Damage//Sun-damaged skin [L57.8] 05/05/2010 CAD (coronary artery disease), picayune coronary *10/14/2010 Coronary stent 10/14/2010 Carcinoma in situ, 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] 11/05/2010 Elevated LFTs [R79.89] 03/23/2011 Fatty infiltration of liver [K76.0] 03/23/2011 Acne Scars [L90.5] 06/01/2011 IBS (irritable bowel syndrome) [K58.9] PAD (peripheral artery disease) [I73.9] 05/15/2013 Sciatica due to displacement of lumbar interver* GERD (gastroesophageal reflux disease) [K21.9] 06/16/2015 Iron deficiency anemia due to chronic blood los*06/24/2015 06/24/2015 Family history of colon cancer [Z80.0] 06/24/2015 06/24/2015 MGUS (monoclonal gammopathy of unknown signific*10/08/2015 Iron deficiency anemia [D50.9] 10/08/2015 Scoliosis of lumbar spine [M41.9] 09/09/2016 S/P lumbar spinal fusion [Z98.1] 09/29/2016 Bilateral carotid artery stenosis [I65.23] 07/16/2023 Chronic diastolic CHF (congestive heart failure*10/16/2023 Encounter Status:Closed by BENITA JANSEN on 01/16/24 [facility] 01-10-2024 [facility] ROBI OLIVARES ([id number]) 1950 F Date Time Provider Department 01/10/24 JOSE HYDE INTMWS During your visit today, we recorded the following information about you: Celina Saenz LPN 01/10/2024 2:03 PM Signed Received forms from [employer] requesting chart notes and patient's PCP to sign orders for pt to receive knee braces and lumbar orthosis. No charting noted for patient stating need for either items. Patient out of town for a few days. Patient's was asked if patient has any diagnosis for knee braces or lumbar orthosis. states no, patient had back surgery and not needing any of these. Celina Saenz LPN Allergies As of Date: 01/10/2024 Noted Allergy Reaction CODEINE 10/11/2007 4 - Hives DARVON (PROPOXYPHENE HCL) 10/11/2007 4 - Hives MORPHINE 09/14/2017 14 - Other: See Comments Comments: Made tongue swell PENICILLINS 10/11/2007 10 - Anaphylaxis SIMVASTATIN 04/17/2012 14 - Other: See Comments Comments: elevated LFTS; had tolerated Lipitor for years without problem Date Reviewed: 10/16/2023 Reviewed by: Irene Wheatley APRN.CE[employer] TE[employer] - Fully Assessed Reason for Visit: DME Co requesting pt information [Other] Prescriptions as of 01/10/2024 - levothyroxine (SYNTHROID) 25 mcg tablet Take 1 tablet by mouth daily before breakfast. - loperamide (IMODIUM) 2 mg cap(s) Take 2 at onset of loose stools, then 1 after each loose stool as needed up to 6 pills per day - sertraline (ZOLOFT) 100 mg tablet Take 1 tablet by mouth once daily. - amLODIPine (NORVASC) 10 mg tablet Take 1 tablet by mouth once daily. - valACYclovir (VALTREX) 500 mg tablet Take 1 tablet by mouth once daily. - atorvastatin (LIPITOR) 80 mg tablet Take 1 tablet by mouth daily at bedtime. For cholesterol. - clopidogrel (PLAVIX) 75 mg tablet Take 1 tablet by mouth once daily. - QUEtiapine (SEROQUEL) 100 mg tablet Take 1 tablet by mouth daily at bedtime. - ferrous sulfate 325 mg (65 mg iron) tablet Take 1 tablet by mouth every other day. - nitroglycerin sublingual (NITROQUICK) 0.4 mg SL tablet Dissolve 1 tablet under the tongue as needed. DISSOLVE ON TONGUE FOR CHEST PAIN. IF NO PAIN RELIEF, CALL 911 - cholecalciferol, vitamin D3, 100 mcg (4,000 unit) cap Take by mouth. Problem List As Of Date 01/10/2024 Noted Resolved Essential hypertension [I10] MIXED HYPERLIPIDEMIA [E78.2] BIPOLAR DISORDER NOS [F31.9] Acquired hypothyroidism [E03.9] Acute myocardial infarction of other specified * 09/12/2016 DIVERTICULOSIS OF COLON W/O BLEED [K57.30] GENERAL OSTEOARTHROSIS [M15.9] IRRITABLE COLON [K58.9] 12/05/2007 ASCVD [I25.10] Vitamin D Deficiency [E55.9] 08/20/2009 Hypokalemia [E87.6] 12/03/2009 Anemia [D64.9] Acute gastritis without mention of hemorrhage [*04/20/2010 Duodenitis without mention of hemorrhage [K29.8*04/20/2010 Diarrhea [R19.7] 04/20/2010 Family history of malignant neoplasm of gastroi*04/20/2010 Pyoderma, unspecified [L08.0] 05/05/2010 Acne Vulgaris: Inflammatory Grade III to IV: no*05/05/2010 Excoriations [T14.8XXA] 05/05/2010 Xerosis cutis [L85.3] 05/05/2010 Solar lentigines [L81.4] 05/05/2010 Actinic Damage//Sun-damaged skin [L57.8] 05/05/2010 CAD (coronary artery disease), picayune coronary *10/14/2010 Coronary stent 10/14/2010 Carcinoma in situ, 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] 11/05/2010 Elevated LFTs [R79.89] 03/23/2011 Fatty infiltration of liver [K76.0] 03/23/2011 Acne Scars [L90.5] 06/01/2011 IBS (irritable bowel syndrome) [K58.9] PAD (peripheral artery disease) [I73.9] 05/15/2013 Sciatica due to displacement of lumbar interver* GERD (gastroesophageal reflux disease) [K21.9] 06/16/2015 Iron deficiency anemia due to chronic blood los*06/24/2015 06/24/2015 Family history of colon cancer [Z80.0] 06/24/2015 06/24/2015 MGUS (monoclonal gammopathy of unknown signific*10/08/2015 Iron deficiency anemia [D50.9] 10/08/2015 Scoliosis of lumbar spine [M41.9] 09/09/2016 S/P lumbar spinal fusion [Z98.1] 09/29/2016 Bilateral carotid artery stenosis [I65.23] 07/16/2023 Chronic diastolic CHF (congestive heart failure*10/16/2023 Encounter Status:Closed by CELINA SAENZ on 01/10/24 [facility] ROBI OLIVARES ([id number]) 1950 F Date Time Provider Department 10/17/23 IRENE WHEATLEY INTWS During your visit today, we recorded the following information about you: Irene Wheatley APRN.CNP 10/17/2023 4:23 PM Signed Irish. Please call patient and let them know recent labs looked stable and without problems. No changes needed at this time and to keep next scheduled appointment. Thanks. Corinna Rodriguez LPN 10/17/2023 4:31 PM Signed PATIENT NOTIFIED OF SAME. Allergies As of Date: 10/17/2023 Noted Allergy Reaction CODEINE 10/11/2007 4 - Hives DARVON (PROPOXYPHENE HCL) 10/11/2007 4 - Hives MORPHINE 09/14/2017 14 - Other: See Comments Comments: Made tongue swell PENICILLINS 10/11/2007 10 - Anaphylaxis SIMVASTATIN 04/17/2012 14 - Other: See Comments Comments: elevated LFTS; had tolerated Lipitor for years without problem Date Reviewed: 10/16/2023 Reviewed by: Irene Wheatley APRN.CNP - Fully Assessed Reason for Visit: Results [95] Prescriptions as of 10/17/2023 - amLODIPine (NORVASC) 10 mg tablet Take 1 tablet by mouth once daily. - levothyroxine (SYNTHROID) 25 mcg tablet Take 1 tablet by mouth daily before breakfast. - loperamide (IMODIUM) 2 mg cap(s) Take 2 at onset of loose stools, then 1 after each loose stool as needed up to 6 pills per day - valACYclovir (VALTREX) 500 mg tablet Take 1 tablet by mouth once daily. - atorvastatin (LIPITOR) 80 mg tablet Take 1 tablet by mouth daily at bedtime. For cholesterol. - clopidogrel (PLAVIX) 75 mg tablet Take 1 tablet by mouth once daily. - QUEtiapine (SEROQUEL) 100 mg tablet Take 1 tablet by mouth daily at bedtime. - sertraline (ZOLOFT) 100 mg tablet Take 1 tablet by mouth once daily. - ferrous sulfate 325 mg (65 mg iron) tablet Take 1 tablet by mouth every other day. - nitroglycerin sublingual (NITROQUICK) 0.4 mg SL tablet Dissolve 1 tablet under the tongue as needed. DISSOLVE ON TONGUE FOR CHEST PAIN. IF NO PAIN RELIEF, CALL 911 - cholecalciferol, vitamin D3, 100 mcg (4,000 unit) cap Take by mouth. Problem List As Of Date 10/17/2023 Noted Resolved Essential hypertension [I10] MIXED HYPERLIPIDEMIA [E78.2] BIPOLAR DISORDER NOS [F31.9] Acquired hypothyroidism [E03.9] Acute myocardial infarction of other specified * 09/12/2016 DIVERTICULOSIS OF COLON W/O BLEED [K57.30] GENERAL OSTEOARTHROSIS [M15.9] IRRITABLE COLON [K58.9] 12/05/2007 ASCVD [I25.10] Vitamin D Deficiency [E55.9] 08/20/2009 Hypokalemia [E87.6] 12/03/2009 Anemia [D64.9] Acute gastritis without mention of hemorrhage [*04/20/2010 Duodenitis without mention of hemorrhage [K29.8*04/20/2010 Diarrhea [R19.7] 04/20/2010 Family history of malignant neoplasm of gastroi*04/20/2010 Pyoderma, unspecified [L08.0] 05/05/2010 Acne Vulgaris: Inflammatory Grade III to IV: no*05/05/2010 Excoriations [T14.8XXA] 05/05/2010 Xerosis cutis [L85.3] 05/05/2010 Solar lentigines [L81.4] 05/05/2010 Actinic Damage//Sun-damaged skin [L57.8] 05/05/2010 CAD (coronary artery disease), picayune coronary *10/14/2010 Coronary stent 10/14/2010 Carcinoma in situ, 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] 11/05/2010 Elevated LFTs [R79.89] 03/23/2011 Fatty infiltration of liver [K76.0] 03/23/2011 Acne Scars [L90.5] 06/01/2011 IBS (irritable bowel syndrome) [K58.9] PAD (peripheral artery disease) [I73.9] 05/15/2013 Sciatica due to displacement of lumbar interver* GERD (gastroesophageal reflux disease) [K21.9] 06/16/2015 Iron deficiency anemia due to chronic blood los*06/24/2015 06/24/2015 Family history of colon cancer [Z80.0] 06/24/2015 06/24/2015 MGUS (monoclonal gammopathy of unknown signific*10/08/2015 Iron deficiency anemia [D50.9] 10/08/2015 Scoliosis of lumbar spine [M41.9] 09/09/2016 S/P lumbar spinal fusion [Z98.1] 09/29/2016 Bilateral carotid artery stenosis [I65.23] 07/16/2023 Chronic diastolic CHF (congestive heart failure*10/16/2023 Encounter Status:Closed by CORINNA RODRIGUEZ on 10/17/23 Normal [facility] 25(OH)D3 SerPl-mCncon 2023 25-hydroxyvitamin D3 [Mass/Vol] 54.7 ng/mL Normal 31.0-80.0 [facility] Comment on above: Order Comment: Speci men Type: BLOOD SPECIMENOrdering Facility: [facility] Address: [address] [place] [address] Performed By: #### 1 989-3 ####[facility] LABCLIA [id number] [place] [address] [place] CBC W Auto Differential pane l (Bld)on 10-16-2023 Basophils (Bld) [#/Vol] 0.08 10*3/uL NINF [facility] Basophils/100 WBC (Bld) 0.7 % [facility] Differential cell count method Nom (Bld) Auto [facility] Eosinophils (Bld) [#/Vol] 0.22 10*3/uL [facility] Eosinophils/100 WBC (Bld) 1.9 % [facility] Erythrocyte distribution width (RBC) [Ratio] 13.2 % 11.5 - 15.0 % [facility] Hematocrit (Bld) [Volume fraction] 45.5 % 36.0 - 46.0 % [facility] Hemoglobin (Bld) [Mass/Vol] 15.6 g/dL High 11.5 - 15.5 g/dL [facility] Immature granulocytes (Bld) [#/Vol] 0.03 10*3/uL [facility] Immature granulocytes/100 WBC (Bld) 0.3 % [facility] Interpretation and review of laboratory results Abnormal [facility] Lymphocytes (Bld) [#/Vol] 2.94 10*3/uL [facility] Lymphocytes/100 WBC (Bld) 25.9 % [facility] MCH (RBC) [Entitic mass] 33.4 pg 26.0 - 34.0 pg [facility] MCHC (RBC) [Mass/Vol] 34.3 g/dL 30.5 - 36.0 g/dL [facility] MCV (RBC) [Entitic vol] 97.4 fL 80.0 - 100.0 fL [facility] Monocytes (Bld) [#/Vol] 0.78 10*3/uL [facility] Monocytes/100 WBC (Bld) 6.9 % [facility] Neutrophils (Bld) [#/Vol] 7.30 10*3/uL [facility] Neutrophils/100 WBC (Bld) 64.3 % [facility] Nucleated RBC (Bld) [#/Vol] [facility] Nucleated RBC/100 WBC (Bld) [Ratio] 0.0 % /100 WBC [facility] Platelet mean volume (Bld) [Entitic vol] 12.2 fL 9.0 - 12.7 fL [facility] Platelets (Bld) [#/Vol] 209 10*3/uL [facility] RBC (Bld) [#/Vol] 4.67 10*6/uL 3.90 - 5.2 0 m/uL [facility] WBC (Bld) [#/Vol] 11.35 10*3/uL High [facility] Basophils (Bld) [#/Vol] 0.08 10*3/uL Normal <0.11 [facility] Comment on above: Order Comment: Speci men Type: BLOOD SPECIMENOrdering Facility: [facility] Address: [address] [place] [address] Performed By: #### 5 7021-8 ####[facility] LABCLIA [id number] [facility] [place] [address] [place] Basophils/100 WBC (Bld) 0.7 % Normal [facility] Comment on above: Order Comment: Speci men Type: BLOOD SPECIMENOrdering Facility: [facility] Address: [address] [place] [address] Performed By: #### 5 7021-8 ####[facility] LABCLIA [id number] [place] [address] [place] Differential cell count method Nom (Bld) Auto Normal [facility] Comment on above: Order Comment: Speci men Type: BLOOD SPECIMENOrdering Facility: [facility] Address: [address] [place] [address] Performed By: #### 5 7021-8 ####[facility] LABCLIA [id number] [place] [address] [place] Eosinophils (Bld) [#/Vol] 0.22 10*3/uL Normal <0.46 [facility] Comment on above: Order Comment: Speci men Type: BLOOD SPECIMENOrdering Facility: [facility] Address: [address] [place] [address] Performed By: #### 5 7021-8 ####[facility] LABCLIA [id number] [place] [address] [place] Eosinophils/100 WBC (Bld) 1.9 % Normal [facility] Comment on above: Order Comment: Speci men Type: BLOOD SPECIMENOrdering Facility: [facility] Address: [address] [place] [address] Performed By: #### 5 7021-8 ####[facility] LABCLIA [id number] [place] [address] [place] Erythrocyte distribution width (RBC) [Ratio] 13.2 % Normal 11.5-15.0 [facility] Comment on above: Order Comment: Speci men Type: BLOOD SPECIMENOrdering Facility: [facility] Address: [address] [place] [address] Performed By: #### 5 7021-8 ####[facility] LABIA [id number] [place] [address] [place] Hematocrit (Bld) [Volume fraction] 45.5 % Normal 36.0-46.0 [facility] Comment on above: Order Comment: Speci men Type: BLOOD SPECIMENOrdering Facility: [facility] Address: [address] [place] [address] Performed By: #### 5 7021-8 ####[facility] LABIA [id number] [place] [address] [place] Hemoglobin (Bld) [Mass/Vol] 15.6 g/dL High 11.5-15.5 [facility] Comment on above: Order Comment: Speci men Type: BLOOD SPECIMENOrdering Facility: [facility] Address: [address] [place] [address] Performed By: #### 5 7021-8 ####[facility] LABIA [id number] [place] [address] [place] Immature granulocytes (Bld) [#/Vol] 0.03 10*3/uL Normal <0.10 [facility] Comment on above: Order Comment: Speci men Type: BLOOD SPECIMENOrdering Facility: [facility] Address: [address] [place] [address] Performed By: #### 5 7021-8 ####[facility] LABIA [id number] [id number] [address] [place] Immature granulocytes/100 WBC (Bld) 0.3 % Normal [facility] Comment on above: Order Comment: Speci men Type: BLOOD SPECIMENOrdering Facility: [facility] Address: [address] [place] [address] Performed By: #### 5 7021-8 ####[facility] LABCLIA [id number] [place] [address] [place] Lymphocytes (Bld) [#/Vol] 2.94 10*3/uL Normal 1.00-4.00 [facility] Comment on above: Order Comment: Speci men Type: BLOOD SPECIMENOrdering Facility: [facility] Address: [address] [place] [address] Performed By: #### 5 7021-8 ####[facility] LABCLIA [id number] [place] [address] [place] Lymphocytes/100 WBC (Bld) 25.9 % Normal [facility] Comment on above: Order Comment: Speci men Type: BLOOD SPECIMENOrdering Facility: [facility] Address: [address] [place] [address] Performed By: #### 5 7021-8 ####[facility] LABCLIA [id number] [place] [address] [place] MCH (RBC) [Entitic mass] 33.4 pg Normal 26.0-34.0 [facility] Comment on above: Order Comment: Speci men Type: BLOOD SPECIMENOrdering Facility: [facility] Address: [address] [place] [address] Performed By: #### 5 7021-8 ####[facility] LABCLIA [id number] [place] [address] [place] MCHC (RBC) [Mass/Vol] 34.3 g/dL Normal 30.5-36.0 [facility] Comment on above: Order Comment: Speci men Type: BLOOD SPECIMENOrdering Facility: [facility] Address: [address] [place] [address] Performed By: #### 5 7021-8 ####[facility] LABCLIA [id number] [place] [address] [place] MCV (RBC) [Entitic vol] 97.4 fL Normal 80.0-100.0 [facility] Comment on above: Order Comment: Speci men Type: BLOOD SPECIMENOrdering Facility: [facility] Address: [address] [place] [address] Performed By: #### 5 7021-8 ####[facility] LABCLIA [id number] [place] [address] [place] Monocytes (Bld) [#/Vol] 0.78 10*3/uL Normal <0.87 [facility] Comment on above: Order Comment: Speci men Type: BLOOD SPECIMENOrdering Facility: [facility] Address: [address] [place] [address] Performed By: #### 5 7021-8 ####[facility] LABIA [id number] [place] [address] [place] Monocytes/100 WBC (Bld) 6.9 % Normal [facility] Comment on above: Order Comment: Speci men Type: BLOOD SPECIMENOrdering Facility: [facility] Address: [address] [place] [address] Performed By: #### 5 7021-8 ####[facility] LABCLIA [id number] [place] [address] [place] Neutrophils (Bld) [#/Vol] 7.30 10*3/uL Normal 1.45-7.50 [facility] Comment on above: Order Comment: Speci men Type: BLOOD SPECIMENOrdering Facility: [facility] Address: [address] [place] [address] Performed By: #### 5 7021-8 ####[facility] LABCLIA [id number] [place] [address] [place] Neutrophils/100 WBC (Bld) 64.3 % Normal [facility] Comment on above: Order Comment: Speci men Type: BLOOD SPECIMENOrdering Facility: [facility] Address: [address] [place] [address] Performed By: #### 5 7021-8 ####[facility] LABCLIA [id number] [place] [address] [place] Nucleated RBC (Bld) [#/Vol] 10*3/uL Normal <0.01 [facility] Comment on above: Order Comment: Speci men Type: BLOOD SPECIMENOrdering Facility: [facility] Address: [address] [place] [address] Performed By: #### 5 7021-8 ####[facility] LABCLIA [id number] [place] [address] [place] Nucleated RBC/100 WBC (Bld) [Ratio] 0.0 /100 WBC Normal [facility] Comment on above: Order Comment: Speci men Type: BLOOD SPECIMENOrdering Facility: [facility] Address: [address] [place] [address] Performed By: #### 5 7021-8 ####[facility] LABCLIA [id number] [place] [address] [place] Platelet mean volume (Bld) [Entitic vol] 12.2 fL Normal 9.0-12.7 [facility] Comment on above: Order Comment: Speci men Type: BLOOD SPECIMENOrdering Facility: [facility] Address: [address] [place] [address] Performed By: #### 5 7021-8 ####[facility] LABCLIA [id number] [place] [address] [place] Platelets (Bld) [#/Vol] 209 10*3/uL Normal 150-400 [facility] Comment on above: Order Comment: Speci men Type: BLOOD SPECIMENOrdering Facility: [facility] Address: [address] [place] [address] Performed By: #### 5 7021-8 ####[facility] LABIA [id number] [place] [address] [place] RBC (Bld) [#/Vol] 4.67 10*6/uL Normal 3.90-5.20 [facility] Comment on above: Order Comment: Speci men Type: BLOOD SPECIMENOrdering Facility: [facility] Address: [address] [place] [address] Performed By: #### 5 7021-8 ####[facility] LABIA [id number] [place] [address] [place] WBC (Bld) [#/Vol] 11.35 10*3/uL High 3.70-11.00 [facility] Comment on above: Order Comment: Speci men Type: BLOOD SPECIMENOrdering Facility: [facility] Address: [address] [place] [address] Performed By: #### 5 7021-8 ####[facility] LABIA [id number] [place] [address] [place] CNOVon 10-16-2023 CNOV Office Visit (INTMWS ) ROBI OLIVARES ([id number]) 1950 F Date Time Provider Department 10/16/23 2:40 PM IRENE WHEATLEY INTMWS During your visit today, we recorded the following information about you: Pulse Blood pressure Weight 70/minute 130/70 44 kg Irene Wheatley APRN.CELLOPHANE TESTER 10/16/2023 2:59 PM Signed SUBJECTIVE Robi Olivares is a 72 year old female here today for a check up on her medical problems. Chief Complaint Patient presents with: F/U 6 months HPI Robi Olivares is a 72 year old female. She is an established patient of Jose Hyde MD. Here today for follow up on mood, anxiety. Gradual weight loss. On Seroquel. Weight stable today. Sleep is okay. Notes still depressed at times, living situation is not ideal. No issues with shortness of breath, chest pain or chest tightness. Her medications were reviewed today and her list is now up to date. Medications Current Outpatient Medications Medication Sig amLODIPine (NORVASC) 10 mg tablet Take 1 tablet by mouth once daily. levothyroxine (SYNTHROID) 25 mcg tablet Take 1 tablet by mouth daily before breakfast. loperamide (IMODIUM) 2 mg cap(s) Take 2 at onset of loose stools, then 1 after each loose stool as needed up to 6 pills per day valACYclovir (VALTREX) 500 mg tablet Take 1 tablet by mouth once daily. atorvastatin (LIPITOR) 80 mg tablet Take 1 tablet by mouth daily at bedtime. For cholesterol. clopidogrel (PLAVIX) 75 mg tablet Take 1 tablet by mouth once daily. QUEtiapine (SEROQUEL) 100 mg tablet Take 1 tablet by mouth daily at bedtime. sertraline (ZOLOFT) 100 mg tablet Take 1 tablet by mouth once daily. ferrous sulfate 325 mg (65 mg iron) tablet Take 1 tablet by mouth every other day. nitroglycerin sublingual (NITROQUICK) 0.4 mg SL tablet Dissolve 1 tablet under the tongue as needed. DISSOLVE ON TONGUE FOR CHEST PAIN. IF NO PAIN RELIEF, CALL 911 cholecalciferol, vitamin D3, 100 mcg (4,000 unit) cap Take by mouth. No current facility-administered medications for this visit. ALLERGIES Allergen Reactions Codeine Hives Darvon [Propoxyphen* Hives Morphine Other: See Comments Made tongue swell Penicillins Anaphylaxis Simvastatin Other: See Comments elevated LFTS; had tolerated Lipitor for years without problem ACTIVE PROBLEM LIST Cad (Coronary Artery Disease), [place] Coronary Artery - 10/14/2010 (A priority) Comment: 04/1997 - [place] Stent - to [facility] in [place] in [place]. She had jaw pain, shortness of breath and nausea. States she has another blockage that was only treated medically. 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 Coronary Stent - 10/14/2010 Carcinoma in Situ, Vulva Pyoderma, Unspecified - 05/05/2010 Acne Vulgaris: Inflammatory Grade III to IV: nodulocystic; adult type - 05/05/2010 Excoriations - 05/05/2010 Xerosis Cutis - 05/05/2010 Solar lentigines - 05/05/2010 Actinic Damage//Sun-damaged skin - 05/05/2010 Acute Gastritis Without Mention of Hemorrhage - 04/20/2010 Duodenitis Without Mention of Hemorrhage - 04/20/2010 Diarrhea - 04/20/2010 Family History of Malignant Neoplasm of Gastrointestinal Tract - 04/20/2010 Anemia Hypokalemia - 12/03/2009 Vitamin D Deficiency - 08/20/2009 Unspecified Cardiovascular Disease Comment: [place] Irritable Bowel Syndrome - 12/05/2007 Essential Hypertension Comment: Essential hypertension Mixed Hyperlipidemia Comment: Hyperlipidemia Bipolar Disorder, Unspecified ([facility]) Comment: Manic-depressive Acquired Hypothyroidism Comment: Hypothyroidism Diverticulosis of Colon (Without Mention of Hemorrhage) Comment: Diverticulosis Generalized Osteoarthrosis, Unspecified Site Comment: General Osteoarthritis Social History Tobacco Use Smoking status: Some Days Packs/day: 0.25 Years: 30.00 Additional pack years: 0.00 Total pack years: 7.50 Types: Cigarettes Last attempt to quit: 06/19/2002 Years since quittin.3 Smokeless tobacco: Never Tobacco comments: Stressors noted Vaping Use Vaping Use: Never used Substance Use Topics Alcohol use: Yes Comment: socially Drug use: No Comment: Used marjiana in the past Review of Systems Respiratory: Negative. Cardiovascular: Negative. (more content not included)... Normal [facility] Comprehensive metabolic 2000 panelon 10-16-2023 Albumin [Mass/Vol] 4.4 g/dL Normal 3.9-4.9 [facility] Comment on above: Order Comment: Speci men Type: BLOOD SPECIMENOrdering Facility: [facility] Address: [address] [place] [address] Performed By: #### 3 051-0, 3024-7, 99610-6, 28544-3 ####[facility] LABCLIA [id number] [place] [address] [place] ALP [Catalytic activity/Vol] 88 U/L Normal 34-123 [facility] Comment on above: Order Comment: Speci men Type: BLOOD SPECIMENOrdering Facility: [facility] Address: [address] [place] [address] Performed By: #### 3 051-0, 3024-7, 93602-7, 54745-5 ####[facility] LABCLIA [id number] [place] [address] [place] ALT [Catalytic activity/Vol] 14 U/L Normal 7-38 [facility] Comment on above: Order Comment: Speci men Type: BLOOD SPECIMENOrdering Facility: [facility] Address: [address] [place] [address] Performed By: #### 3 051-0, 3024-7, 54020-7, 24371-7 ####[facility] LABCLIA [id number] [address] [address] [place] Anion gap [Moles/Vol] 12 mmol/L Normal 9-18 [facility] Comment on above: Order Comment: Speci men Type: BLOOD SPECIMENOrdering Facility: [facility] Address: [address] [place] [address] Performed By: #### 3 051-0, 3024-7, 49073-2, 93217-5 ####[facility] LABCLIA [id number] [place] [address] [place] AST [Catalytic activity/Vol] 27 U/L Normal 13-35 [facility] Comment on above: Order Comment: Speci men Type: BLOOD SPECIMENOrdering Facility: [facility] Address: [address] [place] [address] Performed By: #### 3 051-0, 3024-7, 96577-4, 33254-8 ####[facility] LABCLIA [id number] [place] [address] [place] Bilirubin [Mass/Vol] 0.3 mg/dL Normal 0.2-1.3 [facility] Comment on above: Order Comment: Speci men Type: BLOOD SPECIMENOrdering Facility: [facility] Address: [address] [place] [address] Performed By: #### 3 051-0, 3024-7, 67630-5, 10961-9 ####[facility] LABCLIA [id number] [place] [address] [place] Calcium [Mass/Vol] 9.9 mg/dL Normal 8.5-10.2 [facility] Comment on above: Order Comment: Speci men Type: BLOOD SPECIMENOrdering Facility: [facility] Address: [address] [place] [address] Performed By: #### 3 051-0, 3024-7, 86633-5, 97134-0 ####[facility] LABCLIA [id number] [place] [id number] [place] Chloride [Moles/Vol] 105 mmol/L Normal 97-105 [facility] Comment on above: Order Comment: Speci men Type: BLOOD SPECIMENOrdering Facility: [facility] Address: [address] [place] [address] Performed By: #### 3 051-0, 3024-7, 90819-6, 44953-6 ####[facility] LABCLIA [id number] [place] [address] [place] CO2 [Moles/Vol] 25 mmol/L Normal 22-30 [facility] Comment on above: Order Comment: Speci men Type: BLOOD SPECIMENOrdering Facility: [facility] Address: [address] [place] [address] Performed By: #### 3 051-0, 3024-7, 18405-4, 19532-8 ####[facility] LABIA [id number] [place] [address] [place] Creatinine [Mass/Vol] 0.73 mg/dL Normal 0.58-0.96 [facility] Comment on above: Order Comment: Speci men Type: BLOOD SPECIMENOrdering Facility: [facility] Address: [address] [place] [address] Performed By: #### 3 051-0, 3024-7, 80801-9, 50040-0 ####[facility] [id number] [place] [address] [place] Creatinine and Glomerular filtration rate.predicted panel (S/P/Bld) 87 mL/min/1.73m??? Normal >=60 [facility] Comment on above: Order Comment: Speci men Type: BLOOD SPECIMENOrdering Facility: [facility] Address: [address] [place] [address] Result Comment: Gracie mated Glomerular Filtration Rate (eGFR) is calculated using the 2020 CKD-EPI creatinine equation. This equation utilizes serum creatinine, sex, and age as parameters. The creatinine assay has traceable calibration to isotope dilution-mass spectrometry. Refer to KDIGO guidelines for clinical interpretation. In patients with unstable renal function, e.g. those with acute kidney injury, the eGFR may not accurately reflect actual GFR. Performed By: #### 3 051-0, 3024-7, 67013-9, 46648-0 ####[facility] LABIA [id number] [place] [id number] [place] Glucose [Mass/Vol] 99 mg/dL Normal 74-99 [facility] Comment on above: Order Comment: Speci men Type: BLOOD SPECIMENOrdering Facility: [facility] Address: [address] [place] [address] Result Comment: The [place] [employer] (ADA) provides guidance for cutoff values for fasting glucose and random glucose. The ADA defines fasting as no caloric intake for at least 8 hours. Fasting plasma glucose results between 100 to 125 [...] Standards of Medical Care in Diabetes 2016, [place] [employer]. Diabetes Care. 2016.39(Suppl 1). Performed By: #### 3 051-0, 3024-7, 42726-1, 80119-0 ####[facility] LABCLIA [id number] [place] [address] [place] Potassium [Moles/Vol] 4.1 mmol/L Normal 3.7-5.1 [facility] Comment on above: Order Comment: Moreno savage Type: BLOOD SPECIMENOrdering Facility: [facility] Address: [address] [place] [address] Performed By: #### 3 051-0, 3024-7, 13160-2, 87920-3 ####[facility] LABCLIA [id number] [place] [id number] [place] Protein [Mass/Vol] 7.8 g/dL Normal 6.3-8.0 [facility] Comment on above: Order Comment: Krystinai janette Type: BLOOD SPECIMENOrdering Facility: [facility] Address: [address] [place] [address] Performed By: #### 3 051-0, 3024-7, 42704-1, 71010-9 ####[facility] LABCLIA [id number] [address] [address] [place] Sodium [Moles/Vol] 142 mmol/L Normal 136-144 [facility] Comment on above: Order Comment: Speci men Type: BLOOD SPECIMENOrdering Facility: [facility] Address: [address] [place] [address] Performed By: #### 3 051-0, 3024-7, 25452-8, 42352-9 ####[facility] LABCLIA [id number] [place] [address] [place] Urea nitrogen [Mass/Vol] 10 mg/dL Normal 7-21 [facility] Comment on above: Order Comment: Speci men Type: BLOOD SPECIMENOrdering Facility: [facility] Address: [address] [place] [address] Performed By: #### 3 051-0, 3024-7, 02120-3, 08092-8 ####[facility] LABIA [id number] [place] [id number] [place] Ferritin SerPl-mCncon 2023 Ferritin [Mass/Vol] 198.0 ng/mL Normal 14.7-205.1 [facility] Comment on above: Order Comment: Speci men Type: BLOOD SPECIMENOrdering Facility: [facility] Address: [address] [place] [address] Performed By: #### 2 276-4, 3016-3 ####[facility] LABIA [id number] [place] [id number] [place] Iron and Iron binding capaci ty panelon 10-16-2023 Iron [Mass/Vol] 65 ug/dL Normal 41-186 [facility] Comment on above: Order Comment: Speci men Type: BLOOD SPECIMENOrdering Facility: [facility] Address: [address] [place] [address] Performed By: #### 3 051-0, 3024-7, 74308-0, 89827-6 ####[facility] LABCLIA [id number] [place] [id number] [place] Iron binding capacity [Mass/Vol] 277 ug/dL Normal 232-386 [facility] Comment on above: Order Comment: Speci men Type: BLOOD SPECIMENOrdering Facility: [facility] Address: [address] [place] [address] Performed By: #### 3 051-0, 3024-7, 10631-8, ####[facility] LABIA [id number] [place] [address] [place] Iron/TIBC [Molar ratio] 23.5 % Normal 15.0-57.0 [facility] Comment on above: Order Comment: Speci men Type: BLOOD SPECIMENOrdering Facility: [facility] Address: [address] [place] [address] Performed By: #### 3 051-0, 3024-7, 29063-8, ####[facility] LABIA [id number] [place] [id number] [place] T3Free SerPl-mCncon 10-16-19 24 Free T3 [Mass/Vol] 2.8 pg/mL Normal 2.3-4.1 [facility] Comment on above: Order Comment: Speci men Type: BLOOD SPECIMENOrdering Facility: [facility] Address: [address] [place] [address] Performed By: #### 3 051-0, 3024-7, 81191-5, 62754-4 ####[facility] LABIA [id number] [place] [id number] [place] T4 Free SerPl-mCncon 024 Free T4 [Mass/Vol] 1.5 ng/dL Normal 0.9-1.7 [facility] Comment on above: Order Comment: Speci men Type: BLOOD SPECIMENOrdering Facility: [facility] Address: [address] [place], [place] [address], [place] [address] Performed By: #### 3 051-0, 3024-7, 09160-6, 30483-9 ####[facility] LABIA [id number] [place] [address] [place] TSH SerPl-aCncon 10-16-2023 TSH Qn 3.710 m[IU]/L Normal 0.270-4.200 [facility] Comment on above: Order Comment: Speci men Type: BLOOD SPECIMENOrdering Facility: [facility] Address: [address] [place], [place] [address] [address] Performed By: #### 2 276-4, 3016-3 ####[facility] LABCLIA [id number] [address] [place] CNOVon 07-17-2023 CNOV Office Visit (CAWSTR ) ROBI OLIVARES ([id number]) 1950 F Date Time Provider Department 07/17/23 3:20 PM KARLA CHAMPION During your visit today, we recorded the following information about you: Pulse Blood pressure Weight Height 49/minute 128/57 43.7 kg 1.626 m Karla Champion MD 07/17/2023 4:37 PM [facility] SECTION OF REGIONAL CARDIOLOGY Cardiology ([address]) [address] [facility] [address] OUTPATIENT VISIT DATE 07/17/2023 PRIMARY CARE PHYSICIAN: Jose Hyde [address] [place] [address] HISTORY OF PRESENT ILLNESS: Ms. Olivares is a 72 year old woman with a history of coronary artery disease remote coronary intervention most recently 1996 with PCI to the RCA and posterior ventricular branch. She has a history of peripheral artery disease with iliac stents, hypertension, dyslipidemia, chronic diastolic congestive heart failure, carotid artery disease, and ongoing smoking. She presents the office for routine follow-up. Patient is under significant stress due to her interactions with her spouse. She tells me she has had significant weight loss over the years of approximately 80 to 90 pounds. She has frequent episodes of lightheadedness that worsened by change in position. However, she describes episodes of lightheadedness that can sometimes occur at rest. She has not had symptoms concerning for congestive heart failure including PND, orthopnea, or lower extremity edema. PAST CARDIAC HISTORY: Robi Olivares is a 71 year old female who presents for routine follow up. She has a PMhx of of CAD (s/p remote SC with PCI to RCA 1996 and RPL 2012), R AND L iliac artery stents 2012, family hx of premature CAD (father and uncles 30-40s) HTN, HLD, chronic diastolic HF, mitral valve regurgitation, carotid stenosis (mild US 2014), current smoker. She was last seen in office by myself on 01/31/2022. Her most recent ischemic evaluation 2018 was with stress testing without suggestion of ischemia. Most recent LHC was in 2012 with moderate mid RCA disease and minimal disease to other coronary arteries. Most recent echocardiogram August PAST MEDICAL HISTORY Diagnosis Date Acute gastritis without mention of hemorrhage Acute myocardial infarction of other specified sites, episode of care unspecified Myocardial Infarction--DR WHITE Adenomatous colon polyp TA on Jun 2015 colonoscopy (Dr. 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 Davison Severe vulvar dysplasia Vitamin D Deficiency 08/20/2009 PAST SURGICAL HISTORY Procedure Laterality Date COLONOSCOPY 09/06/02 Normal - Nicole COLONOSCOPY FLX DX W/COLLJ SPEC WHEN PFRMD 06/24/15 Colonoscopy COLONOSCOPY FLX DX W/COLLJ SPEC WHEN PFRMD 03/14/2017 Colonoscopy COLONOSCOPY FLX DX W/COLLJ SPEC WHEN PFRMD 03/19/2020 Colonoscopy COLONOSCOPY W/BIOPSY SINGLE/MULTIPLE 04/20/10 DILATION AND CURETTAGE DXAND/THER NONOBSTETRIC 1972 Dilation AND curettage EGD 08/30/02 small hiatal hernia [facility] EGD TRANSORAL BIOPSY SINGLE/MULTIPLE 04/20/10 ESOPHAGOGASTRODUODENOSC OPY TRANSORAL DIAGNOSTIC 06/24/15 EGD PAST SURGICAL HISTORY OF 05/1973 left knee surgery cartilage removed from knee PAST SURGICAL HISTORY OF 05/19/1997 Stent inserted right coronary artery PAST SURGICAL HISTORY OF 09/2002 Mirco left hand surgery PAST SURGICAL HISTORY OF 2008 thumb surgery left hand PAST SURGICAL HISTORY OF 2007 left knee surgery PAST SURGICAL HISTORY OF Reoperation to release adhesions REVSC OPN/PRQ ILIAC ART W/STNT PLMT AND ANGIOPLSTY 06-05-13 right leg TEAEC W/WO PATCH GRAFT COMMON FEMORAL 08-15-13 RIGHT FOREST OFFICER TEAEC W/WO PATCH GRAFT ILIOFEMORAL Left 02-01-16 TOTAL ABDOMINAL HYSTERECT W/WO RMVL TUBE OVARY 1976 Hysterectomy, DOROTHY, BSO;Fibroids/infection VULVECTOMY SIMPLE PARTIAL 10/21/2010 Partial simple posterior vulvectomy and anterior vulvar biopsy SOCIAL HISTORY Social History Tobacco Use Smoking status: Some Days Packs/day: 0.25 Years: 30.00 Additional pack years: 0.00 Total pack years: 7.50 Types: Cigarettes Last attempt to quit: 06/19/2002 Years since quittin.0 Smokeless tobacco: Never Tobacco comments: Stressors noted Vaping Use Vaping Use: Never used Substance Use Topics Alcohol use: Ye (more content not included)... Normal [facility] Comprehensive metabolic 2000 panelon 07-17-2023 Albumin [Mass/Vol] 4.4 g/dL Normal 3.9-4.9 [facility] Comment on above: Order Comment: Speci men Type: BLOOD SPECIMENOrdering Facility: [facility] Address: [address] [place] [id number] Performed By: #### 2 4323-8 ####[facility] PR[facility]ADLAKESIDE W[facility] CITYTHOMAS [id number] [place] [address] [place] ALP [Catalytic activity/Vol] 83 U/L Normal 34-123 [facility] Comment on above: Order Comment: Speci men Type: BLOOD SPECIMENOrdering Facility: [facility] Address: [address] [place] [address] Performed By: #### 2 4323-8 ####[facility] JACKSONVILLEWNCLIA [id number] [place] [address] [place] ALT [Catalytic activity/Vol] 9 U/L Normal 7-38 [facility] Comment on above: Order Comment: Speci men Type: BLOOD SPECIMENOrdering Facility: [facility] Address: [address] [place] [address] Performed By: #### 2 4323-8 ####[facility] JACKSONVILLEWNCLIA [id number] [place] [address] [place] Anion gap [Moles/Vol] 11 mmol/L Normal 9-18 [facility] Comment on above: Order Comment: Speci men Type: BLOOD SPECIMENOrdering Facility: [facility] Address: [address] [place] [address] Performed By: #### 2 4323-8 ####[facility] [id number] [place] [address] [place] AST [Catalytic activity/Vol] 19 U/L Normal 13-35 [facility] Comment on above: Order Comment: Speci men Type: BLOOD SPECIMENOrdering Facility: [facility] Address: [address] [place] [address] Performed By: #### 2 4323-8 ####[facility] NAPLESNCLIA [id number] [place] [address] [place] Bilirubin [Mass/Vol] 0.4 mg/dL Normal 0.2-1.3 [facility] Comment on above: Order Comment: Speci men Type: BLOOD SPECIMENOrdering Facility: [facility] Address: [address] [place] [address] Performed By: #### 2 4323-8 ####[facility] MILLTOWNCLIA [id number] [place] [address] [place] Calcium [Mass/Vol] 9.6 mg/dL Normal 8.5-10.2 [facility] Comment on above: Order Comment: Speci men Type: BLOOD SPECIMENOrdering Facility: [facility] Address: [address] [place] [address] Performed By: #### 2 4323-8 ####[facility] MILLTOWNCLIA [id number] [place] [address] [place] Chloride [Moles/Vol] 106 mmol/L High 97-105 [facility] Comment on above: Order Comment: Speci men Type: BLOOD SPECIMENOrdering Facility: [facility] Address: [address] [place] [address] Performed By: #### 2 4323-8 ####[facility] MILLWNCLIA [id number] [place] [address] [place] CO2 [Moles/Vol] 23 mmol/L Normal 22-30 [facility] Comment on above: Order Comment: Speci men Type: BLOOD SPECIMENOrdering Facility: [facility] Address: [address] [place] [address] Performed By: #### 2 4323-8 ####[facility] MILLTOWNCLIA [id number] [place] [address] [place] Creatinine [Mass/Vol] 0.84 mg/dL Normal 0.58-0.96 [facility] Comment on above: Order Comment: Speci men Type: BLOOD SPECIMENOrdering Facility: [facility] Address: [address] [place] [address] Performed By: #### 2 4323-8 ####[facility] JACKSONVILLEWNCLIA [id number] [place] [address] [place] Creatinine and Glomerular filtration rate.predicted panel (S/P/Bld) 73 mL/min/1.73m??? Normal >=60 [facility] Comment on above: Order Comment: Moreno savage Type: BLOOD SPECIMENOrdering Facility: [facility] Address: [address] [place] [address] Result Comment: Gracie mated Glomerular Filtration Rate (eGFR) is calculated using the 2020 CKD-EPI creatinine equation. This equation utilizes serum creatinine, sex, and age as parameters. The creatinine assay has traceable calibration to isotope dilution-mass spectrometry. Refer to KDIGO guidelines for clinical interpretation. In patients with unstable renal function, e.g. those with acute kidney injury, the eGFR may not accurately reflect actual GFR. Performed By: #### 2 4323-8 ####[facility] [id number] [place] [address] [place] Glucose [Mass/Vol] 100 mg/dL High 74-99 [facility] Comment on above: Order Comment: Moreno savage Type: BLOOD SPECIMENOrdering Facility: [facility] Address: [address] [place] [address] Result Comment: The [place] Diabetes Association (ADA) provides guidance for cutoff values for fasting glucose and random glucose. The ADA defines fasting as no caloric intake for at least 8 hours. Fasting plasma glucose results between 100 to 125 [...] Standards of Medical Care in Diabetes 2016, [place] Diabetes Association. Diabetes Care. 2016.39(Suppl 1). Performed By: #### 2 4323-8 ####[facility] NAPLESNCA [id number] [place] [address] [place] Potassium [Moles/Vol] 3.6 mmol/L Low 3.7-5.1 [facility] Comment on above: Order Comment: Speci men Type: BLOOD SPECIMENOrdering Facility: [facility] Address: [address] [place] [address] Performed By: #### 2 4323-8 ####[facility] CLYDEWNCGARYA [id number] [place] [address] [place] Protein [Mass/Vol] 7.4 g/dL Normal 6.3-8.0 [facility] Comment on above: Order Comment: Speci men Type: BLOOD SPECIMENOrdering Facility: [facility] Address: [address] [place] [address] Performed By: #### 2 4323-8 ####[facility] N[facility]LESNCA [id number] [place] [address] [place] Sodium [Moles/Vol] 140 mmol/L Normal 136-144 [facility] Comment on above: Order Comment: Speci men Type: BLOOD SPECIMENOrdering Facility: [facility] Address: [address] [place] [address] Performed By: #### 2 4323-8 ####[facility] NAPLESNCLIA [id number] [place] [address] [place] Urea nitrogen [Mass/Vol] 13 mg/dL Normal 7-21 [facility] Comment on above: Order Comment: Speci men Type: BLOOD SPECIMENOrdering Facility: [facility] Address: [address] [place] [address] Performed By: #### 2 4323-8 ####[facility] NAPLESNCLIA [id number] [place] [address] [place] Lipid 1996 panelon 4 Cholesterol [Mass/Vol] 139 mg/dL Normal <200 [facility] Comment on above: Order Comment: Speci men Type: BLOOD SPECIMENOrdering Facility: [facility] Address: [address] [place] [address] Result Comment: <200 mg/dL, Desirable 200-239 mg/dL, Borderline high >239 mg/dL, High Performed By: #### 2 4331-1 ####[facility] LABCLIA [id number] [address] [id number] [place] [address] [place] Cholesterol in HDL [Mass/Vol] 45 mg/dL Normal >39 [facility] Comment on above: Order Comment: Speci men Type: BLOOD SPECIMENOrdering Facility: [facility] Address: [address] [place] [address] Result Comment: 40-5 9 mg/dL, Acceptable >59 mg/dL, High: Negative risk factor for coronary heart disease <40 mg/dL, Low: Positive risk factor for coronary heart disease Performed By: #### 2 4331-1 ####[facility] LABCLIA [id number] [address] [id number] [place] [address] [place] Cholesterol in LDL [Mass/Vol] 70 mg/dL Normal <100 [facility] Comment on above: Order Comment: Speci men Type: BLOOD SPECIMENOrdering Facility: [facility] Address: [address] [place] [address] Result Comment: <100 mg/dL, Optimal 100-129 mg/dL, Near optimal/above optimal 130-159 mg/dL, Borderline high 160-189 mg/dL, High >189 mg/dL, Very high Secondary prevention optimal LDL Cholesterol levels are recommended to be < 70 mg/dL Performed By: #### 2 4331-1 ####[facility] LABCLIA [id number] [address] [id number] [place] [address] [place] Cholesterol in LDL/Cholesterol in HDL [Mass ratio] 1.56 {ratio} Normal <2.54 [facility] Comment on above: Order Comment: Speci men Type: BLOOD SPECIMENOrdering Facility: [facility] Address: [address] [place] [address] Result Comment: Cherry francis: 1. National Cholesterol Education Program ATP III Guideline At-A-Glance Quick Desk Reference: National Heart, Lung, and Blood [place]. National Institutes of Health. 2001: NIH Publication No. 01-3305. 2. An International Atherosclerosis Society position paper: global recommendations for the management of dyslipidemia: executive summary, Atherosclerosis. 2014: 232(2):410-413. Performed By: #### 2 4331-1 ####[facility] LABCLIA [id number] [address] [id number] [place] [address] [place] Cholesterol in VLDL [Mass/Vol] 24 mg/dL Normal <30 [facility] Comment on above: Order Comment: Krystinai men Type: BLOOD SPECIMENOrdering Facility: [facility] Address: [address] [place] [address] Performed By: #### 2 4331-1 ####[facility] LABCLIA [id number] [address] [id number] [place] [address] [place] Cholesterol non HDL [Mass/Vol] 94 mg/dL Normal <130 [facility] Comment on above: Order Comment: Krystinai men Type: BLOOD SPECIMENOrdering Facility: [facility] Address: [address] [place] [address] Result Comment: <130 mg/dL, Optimal 130-159 mg/dL, Near optimal/above optimal 160-189 mg/dL, Borderline high 190-219 mg/dL, High >219 mg/dL, Very high Secondary prevention optimal non HDL Cholesterol levels are recommended to be <100 mg/dL Performed By: #### 2 4331-1 ####[facility] LABCLIA [id number] [address] [id number] [place] [address] Cholesterol.total/ Cholesterol in HDL [Mass ratio] 3.09 {ratio} Normal <5.10 [facility] Comment on above: Order Comment: Speci men Type: BLOOD SPECIMENOrdering Facility: [facility] Address: [address] [place], [place] [address] Performed By: #### 2 4331-1 ####[facility] LABCLIA [id number] [address] [id number] [place] [address] FASTING TIME 16 hrs Normal [facility] Comment on above: Order Comment: Speci men Type: BLOOD SPECIMENOrdering Facility: [facility] Address: [address] [place], [place] [address] Performed By: #### 2 4331-1 ####[facility] LABCLIA [id number] [address] [id number] [place] [address] [place] Triglyceride [Mass/Vol] 121 mg/dL Normal <150 [facility] Comment on above: Order Comment: Speci men Type: BLOOD SPECIMENOrdering Facility: [facility] Address: [address] [place], [place] [address] Result Comment: <150 mg/dL, Normal 150-199 mg/dL, Borderline high 200-499 mg/dL, High >499 mg/dL, Very high Performed By: #### 2 4331-1 ####[facility] LABCLIA [id number] [place] [id number] [facility] PRASAD TANGWNCLIA [id number] [place] [address] [facility] CNOVon 06-26-2023 CNOV Office Visit (INTMWS ) ROBI OLIVARES ([id number]) 1950 F Date Time Provider Department 06/26/23 1:40 PM IRENE WHEATLEY INTMWS During your visit today, we recorded the following information about you: Pulse Blood pressure Weight 62/minute 126/70 44.5 kg Irene Wheatley APRN.CELLOPHANE TESTER 06/26/2023 3:09 PM Signed SUBJECTIVE Robi Olivares is a 72 year old female here today for a check up on her medical problems. Chief Complaint Patient presents with: 6 week follow up Weight Loss: over 10 lbs in the last year States has no appetite. spouse is concerned and asked that patient discuss with provider and questioned if related to thyroid HPI Robi Olivares is a 72 year old female. Here today for a follow up. At her last visit we discussed concerns of weight loss. She has had a gradual 30+ pound weight loss over the last year. We stopped her Wellbutrin and started Seroquel to also help with anxiety. Weight stable from her visit 6 weeks ago to today. Still with anxiety/stress. Spouse wondering if thyroid is the cause of her weight loss. Last TSH in range. Her medications were reviewed today and her list is now up to date. Medications Current Outpatient Medications Medication Sig clopidogrel (PLAVIX) 75 mg tablet Take 1 tablet by mouth once daily. levothyroxine (SYNTHROID) 25 mcg tablet Take 1 tablet by mouth daily before breakfast. loperamide (IMODIUM) 2 mg cap(s) Take 2 at onset of loose stools, then 1 after each loose stool as needed up to 6 pills per day atenolol (TENORMIN) 25 mg tablet take 1 tablet by mouth daily sertraline (ZOLOFT) 100 mg tablet Take 1 tablet by mouth once daily. ferrous sulfate 325 mg (65 mg iron) tablet Take 1 tablet by mouth every other day. amLODIPine (NORVASC) 10 mg tablet Take 1 tablet by mouth once daily. atorvastatin (LIPITOR) 80 mg tablet Take 1 tablet by mouth daily at bedtime. For cholesterol. valACYclovir (VALTREX) 500 mg tablet Take 1 tablet by mouth once daily. nitroglycerin sublingual (NITROQUICK) 0.4 mg SL tablet Dissolve 1 tablet under the tongue as needed. DISSOLVE ON TONGUE FOR CHEST PAIN. IF NO PAIN RELIEF, CALL 911 nystatin (MYCOSTATIN) powder Apply 1 application to affected area three times daily. cholecalciferol, vitamin D3, 100 mcg (4,000 unit) cap Take by mouth. QUEtiapine (SEROQUEL) 100 mg tablet Take 1 tablet by mouth daily at bedtime. No current facility-administered medications for this visit. ALLERGIES Allergen Reactions Codeine Hives Darvon [Propoxyphen* Hives Morphine Other: See Comments Made tongue swell Penicillins Anaphylaxis Simvastatin Other: See Comments elevated LFTS; had tolerated Lipitor for years without problem ACTIVE PROBLEM LIST Cad (Coronary Artery Disease), Tanana Coronary Artery - 10/14/2010 (A priority) Comment: 04/1997 - [place] Stent - to RCA in [place] in [place]. She had jaw pain, shortness of breath and nausea. States she has another blockage that was only treated medically. 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; adult type - 05/05/2010 Excoriations - 05/05/2010 Xerosis Cutis - 05/05/2010 Solar lentigines - 05/05/2010 Actinic Damage//Sun-damaged skin - 05/05/2010 Acute Gastritis Without Mention of Hemorrhage - 04/20/2010 Duodenitis Without Mention of Hemorrhage - 04/20/2010 Diarrhea - 04/20/2010 Family History of Malignant Neoplasm of Gastrointestinal Tract - 04/20/2010 Anemia Hypokalemia - 12/03/2009 Vitamin D Deficiency - 08/20/2009 Unspecified Cardiovascular Disease Comment: Prio SC Irritable Bowel Syndrome - 12/05/2007 Essential Hypertension Comment: Essential hypertension Mixed Hyperlipidemia Comment: Hyperlipidemia Bipolar Disorder, Unspecified (Hcc) Comment: Manic-depressive Acquired Hypothyroidism Comment: Hypothyroidism Diverticulosis of Colon (Without Mention of Hemorrhage) Comment: Diverticulosis Generalized Osteoarthrosis, Unspecified Site Comment: General Osteoarthritis Social History Tobacco Use Smoking status: Some Days Packs/day: 0.25 Years: 30.00 Additional pack years: 0.00 Total pack years: 7.50 Types: Cigarettes Last attempt to quit: 06/19/2002 Years since quitting: (more content not included)... Normal [facility] CNCOon 05-01-2023 CNCO HNO ID: [id number] Author: Coordinator, Mammography Service: ? Author Type: Physician Type: Letter Filed: 05/02/2023 11:34 PM Note Text: May 01, 2023 PID: [id number] Robi Moise Marshall [address] [place], [place] [id number] Dear Abigail Marshall, We are pleased to inform you that the results of your recent breast imaging exam on 04/28/2023 are normal. Early detection of cancer is very important. We also understand recommendations regarding breast cancer screening are controversial. Please discuss with your primary care provider which strategy is best for you and whether a mammogram is right for you. Your imaging studies and report will be kept on file at [facility] as part of your permanent medical record and are available for your continuing care. Thank you for allowing us to help in meeting your health care needs. Sincerely, Dr. Mohan Interpreting Radiologist [facility] (Normal over 40) Normal [facility] CNOVon 05-01-2023 CNOV Office Visit (INTMWS ) ROBI OLIVARES ([id number]) 1950 F Date Time Provider Department 05/01/23 1:40 PM IRENE WHEATLEY INTMWS During your visit today, we recorded the following information about you: Temperature Pulse Respiration Blood pressure 96.3 degrees 53/minute 18/minute 116/70 Weight 44.6 kg Irene Wheatley APRN.CELLOPHANE TESTER 05/01/2023 4:34 PM Signed SUBJECTIVE Robi Olivares is a 72 year old female here today for concerns. Chief Complaint Patient presents with: Established Patient: Family worried about patient weight loss HPI Robi Olivares is a 72 year old female. Here today due to family concerns of weight loss. She has had about a 15 pound weight loss since August of this year. Accompanied by her cousin and sister. Recent labs showed stable CMP and normal thyroid labs. In the last year she has had a gradual 30+ pound weight loss. She has a good appetite and eats well when out with her family but when at home she does not eat much, not much appetite. No issues with teeth, no pain with chewing or issues with swallowing. No nausea or vomiting. No constipation, has chronic diarrhea, no blood in stool. Recent EGD and colonoscopy without issues. Not sleeping well. Has a lot of stress at home with her significant other. Anxiety and depression. Her medications were reviewed today and her list is now up to date. Medications Current Outpatient Medications Medication Sig loperamide (IMODIUM) 2 mg cap(s) Take 2 at onset of loose stools, then 1 after each loose stool as needed up to 6 pills per day levothyroxine (SYNTHROID) 25 mcg tablet Take 1 tablet by mouth daily before breakfast. atenolol (TENORMIN) 25 mg tablet take 1 tablet by mouth daily sertraline (ZOLOFT) 100 mg tablet Take 1 tablet by mouth once daily. ferrous sulfate 325 mg (65 mg iron) tablet Take 1 tablet by mouth every other day. amLODIPine (NORVASC) 10 mg tablet Take 1 tablet by mouth once daily. clopidogrel (PLAVIX) 75 mg tablet Take 1 tablet by mouth once daily. atorvastatin (LIPITOR) 80 mg tablet Take 1 tablet by mouth daily at bedtime. For cholesterol. valACYclovir (VALTREX) 500 mg tablet Take 1 tablet by mouth once daily. nitroglycerin sublingual (NITROQUICK) 0.4 mg SL tablet Dissolve 1 tablet under the tongue as needed. DISSOLVE ON TONGUE FOR CHEST PAIN. IF NO PAIN RELIEF, CALL 911 nystatin (MYCOSTATIN) powder Apply 1 application to affected area three times daily. cholecalciferol, vitamin D3, 100 mcg (4,000 unit) cap Take by mouth. QUEtiapine (SEROQUEL) 50 mg tablet Take 1 tablet by mouth daily at bedtime. pantoprazole DR (PROTONIX) 40 mg tablet Take 1 tablet by mouth once daily. (Patient not taking: Reported on 05/01/2023) aspirin, enteric coated (ASPIRIN, ENTERIC COATED) 81 mg EC tablet Take 1 tablet by mouth once daily. (Patient not taking: Reported on 03/28/2023) No current facility-administered medications for this visit. ALLERGIES Allergen Reactions Codeine Hives Darvon [Propoxyphen* Hives Morphine Other: See Comments Made tongue swell Penicillins Anaphylaxis Simvastatin Other: See Comments elevated LFTS; had tolerated Lipitor for years without problem ACTIVE PROBLEM LIST Cad (Coronary Artery Disease), Tanana Coronary Artery - 10/14/2010 (A priority) Comment: 04/1997 - [place] Stent - to RCA in [place] in [place]. She had jaw pain, shortness of breath and nausea. States she has another blockage that was only treated medically. 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; adult type - 05/05/2010 Excoriations - 05/05/2010 Xerosis Cutis - 05/05/2010 Solar lentigines - 05/05/2010 Actinic Damage//Sun-damaged skin - 05/05/2010 Acute Gastritis Without Mention of Hemorrhage - 04/20/2010 Duodenitis Without Mention of Hemorrhage - 04/20/2010 Diarrhea - 04/20/2010 Family History of Malignant Neoplasm of Gastrointestinal Tract - 04/20/2010 Anemia Hypokalemia - 12/03/2009 Vitamin D Deficiency - 08/20/2009 Unspecified Cardiovascular Disease Comment: Darvin [place] Irritable Bowel Syndrome - 12/05/2007 Essential Hypertension Comment: Essential hypertension Mixed Hyperlipidemia Comment: Hyperlipidemia Bipolar Disorder, (more content not included)... Normal [facility] T3Free SerPl-mCncon 05-01-20 23 Free T3 [Mass/Vol] 2.5 pg/mL Normal 2.3-4.1 [facility] Comment on above: Order Comment: Moreno savage Type: BLOOD SPECIMENOrdering Facility: [facility] Address: [address] [place] [address] Performed By: #### 3 016-3, 3051-0, 3027 ####[facility] LABCLIA [id number] [place] [address] [place] T4 Free SerPl-mCncon 023 Free T4 [Mass/Vol] 1.6 ng/dL Normal 0.9-1.7 [facility] Comment on above: Order Comment: Moreno savage Type: BLOOD SPECIMENOrdering Facility: [facility] Address: [address] [place] [address] Performed By: #### 3 016-3, 3051-0, 30247 ####[facility] LABCLIA [id number] [place] [address] [place] TSH SerPl-aCncon 05-01-2023 TSH Qn 2.200 m[IU]/L Normal 0.270-4.200 [facility] Comment on above: Order Comment: Speci men Type: BLOOD SPECIMENOrdering Facility: [facility] Address: [address] [place] [address] Performed By: #### 3 016-3, 3051-0, 3024-7 ####[facility] LABCLIA [id number] [place] [address] [place] [facility] SCREENINGon 04-28-2023 [facility] SCREENING * * *Final Report* * * DATE OF EXAM: Apr 28 2023 1:30PM [id number] - [facility] SCREENING / PROCEDURE REASON: Encounter for screening mammogram for breast cancer * * * * Physician Interpretation * * * * RESULT: #[id number] - [facility] SCREENING BILATERAL DIGITAL SCREENING MAMMOGRAM WITH CAD: 04/28/2023 HISTORY: /SEE TECH NOTE /Screening Mammogram - patient reports NO breast symptoms /priors available for comparison Encounter For Screening Mammogram For Breast Cancer. RESULT: TECHNIQUE: The study was acquired using full field digital technology and interpreted from soft copy. Current study was also evaluated with a Computer Aided Detection (CAD). Comparison is made to exams dated: 04/13/2022 mammogram - [facility], 02/26/2021 mammogram - [facility], 02/21/2020 mammogram - [facility], 12/21/2018 mammogram, and 12/18/2017 mammogram - [facility]. There are scattered areas of fibroglandular density. No significant masses, calcifications, or other findings are seen in either breast. There has been no significant interval change. IMPRESSION: NEGATIVE There is no mammographic evidence of malignancy. A 1 year screening mammogram is recommended. Elisa Mohan M.D. 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 With representation from Breast Imaging, Internal Medicine, Women's Health, Family Medicine, and Medical/Surgical Oncology, the [facility] has carefully reviewed the data and reached the following consensus: 1) All women should engage in shared decision-making with their providers to decide when to start and how often to screen; 2) All women should have the opportunity to start screening mammography at age 40; 3) For women ages 45-55, we recommend annual screening mammograms; 4) For women ages 55 and over, we support both the transition from an annual to a biennial interval if this aligns more with patient's values and preferences, or continuation with annual screening; 5) All women should discuss with their providers when to stop screening mammograms. Front Desk Officer: Fam Transcribe Date/Time: Apr 28 2023 1:15P Dictated by: ELISA MOHAN MD This examination was interpreted and the report reviewed and electronically signed by: ELISA MOHAN MD on May 01 2023 11:15AM EST [id number] Normal [facility] 04-18-2023 CNPN Telephone (INTMWS) ROBI OLIVARES ([id number]) 1950 F Date Time Provider Department 04/18/23 JOSE HYDE INTWS During your visit today, we recorded the following information about you: Analy Lawler RN 04/18/2023 8:51 AM Signed Patient calls and states that it is time for her yearly mammogram. Please place order so that this can be scheduled and completed. Please give patient a call back when order placed. ZORAIDA Flores Rosa, APRN.CELLOPHANE TESTER 04/19/2023 12:49 PM Signed Order placed, please let patient know. Thanks! Analy Lawler RN 04/19/2023 12:56 PM Signed TC patient, left message for patient to call back and speak with a triage nurse regarding mammogram order being placed. ZORAIDA Flores Donna M, RN 04/19/2023 1:12 PM Addendum Spoke with patient. Given message from provider's office. Patient verbalizes understanding. Transferred to energy scheduler for mammogram appointment. Delaney Disla RN Allergies As of Date: 04/18/2023 Noted Allergy Reaction CODEINE 10/11/2007 4 - Hives DARVON (PROPOXYPHENE HCL) 10/11/2007 4 - Hives MORPHINE 09/14/2017 14 - Other: See Comments Comments: Made tongue swell PENICILLINS 10/11/2007 10 - Anaphylaxis SIMVASTATIN 04/17/2012 14 - Other: See Comments Comments: elevated LFTS; had tolerated Lipitor for years without problem Date Reviewed: 03/28/2023 Reviewed by: Celina Saenz LPN - Fully Assessed Reason for Visit: Mammogram Order [Other] Primary Visit Diagnosis:Encounter for screening mammogram for breast cancer [Z12.31] Order(s):[facility] SCREENING [[id number]] Order #: [id number] FUTURE Prescriptions as of 04/19/2023 - buPROPion SR (WELLBUTRIN SR) 200 mg 12 hr tablet Take 1 tablet by mouth once daily. - loperamide (IMODIUM) 2 mg cap(s) Take 2 at onset of loose stools, then 1 after each loose stool as needed up to 6 pills per day - levothyroxine (SYNTHROID) 25 mcg tablet Take 1 tablet by mouth daily before breakfast. - atenolol (TENORMIN) 25 mg tablet take 1 tablet by mouth daily - pantoprazole DR (PROTONIX) 40 mg tablet Take 1 tablet by mouth once daily. - sertraline (ZOLOFT) 100 mg tablet Take 1 tablet by mouth once daily. - ferrous sulfate 325 mg (65 mg iron) tablet Take 1 tablet by mouth every other day. - amLODIPine (NORVASC) 10 mg tablet Take 1 tablet by mouth once daily. - clopidogrel (PLAVIX) 75 mg tablet Take 1 tablet by mouth once daily. - atorvastatin (LIPITOR) 80 mg tablet Take 1 tablet by mouth daily at bedtime. For cholesterol. - valACYclovir (VALTREX) 500 mg tablet Take 1 tablet by mouth once daily. - nitroglycerin sublingual (NITROQUICK) 0.4 mg SL tablet Dissolve 1 tablet under the tongue as needed. DISSOLVE ON TONGUE FOR CHEST PAIN. IF NO PAIN RELIEF, CALL 911 - nystatin (MYCOSTATIN) powder Apply 1 application to affected area three times daily. - cholecalciferol, vitamin D3, 100 mcg (4,000 unit) cap Take by mouth. - aspirin, enteric coated (ASPIRIN, ENTERIC COATED) 81 mg EC tablet Take 1 tablet by mouth once daily. Problem List As Of Date 04/18/2023 Noted Resolved Essential hypertension [I10] MIXED HYPERLIPIDEMIA [E78.2] BIPOLAR DISORDER NOS [F31.9] Acquired hypothyroidism [E03.9] Acute myocardial infarction of other specified * 09/12/2016 DIVERTICULOSIS OF COLON W/O BLEED [K57.30] GENERAL OSTEOARTHROSIS [M15.9] IRRITABLE COLON [K58.9] 12/05/2007 ASCVD [I25.10] Vitamin D Deficiency [E55.9] 08/20/2009 Hypokalemia [E87.6] 12/03/2009 Anemia [D64.9] Acute gastritis without mention of hemorrhage [*04/20/2010 Duodenitis without mention of hemorrhage [K29.8*04/20/2010 Diarrhea [R19.7] 04/20/2010 Family history of malignant neoplasm of gastroi*04/20/2010 Pyoderma, unspecified [L08.0] 05/05/2010 Acne Vulgaris: Inflammatory Grade III to IV: no*05/05/2010 Excoriations [T14.8XXA] 05/05/2010 Xerosis cutis [L85.3] 05/05/2010 Solar lentigines [L81.4] 05/05/2010 Actinic Damage//Sun-damaged skin [L57.8] 05/05/2010 CAD (coronary artery disease), picayune coronary *10/14/2010 Coronary stent 10/14/2010 Carcinoma in situ, 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] 11/05/2010 Elevated LFTs [R79.89] 03/23/2011 Fatty infiltration of liver [K76.0] 03/23/2011 Acne Scars [L90.5] 06/01/2011 IBS (irritable bowel syndrome) [K58.9] PAD (peripheral artery disease) [I73.9] 05/15/2013 Sciatica due to displacement of lumbar interver* GERD (gastroesophageal reflux disease) [K21.9] 06/16/2015 Iron deficiency anemia due to chronic blood los*06/24/2015 06/24/2015 Family history of colon cancer [Z80.0] 06/24/2015 06/24/2015 MGUS (monoclonal gammopathy of unknown signific*10/08/2015 Iron deficiency anemia [D50.9] 10/08/2015 Scoliosis of lumbar spine [M41.9] 09/09/2016 S/P lumbar spinal fusion [Z98.1] 09/29/2016 Encounter Status:Closed by JENNIFER, (more content not included)... Normal [facility] metabolic 2000 panelon 03-29-2023 Albumin [Mass/Vol] 4.2 g/dL 3.9 - 4.9 g/dL [facility] ALP [Catalytic activity/Vol] 79 U/L 34 - 123 U/L [facility] ALT [Catalytic activity/Vol] 14 U/L 7 - 38 U/L [facility] Anion gap [Moles/Vol] 12 mmol/L 9 - 18 mmol/L [facility] AST [Catalytic activity/Vol] 23 U/L 13 - 35 U/L [facility] Bilirubin [Mass/Vol] 0.3 mg/dL 0.2 - 1.3 mg/dL [facility] Calcium [Mass/Vol] 9.7 mg/dL 8.5 - 10. 2 mg/dL [facility] Chloride [Moles/Vol] 103 mmol/L 97 - 105 mmol/L [facility] CO2 [Moles/Vol] 25 mmol/L 22 - 30 mmol/L [facility] Creatinine [Mass/Vol] 0.79 mg/dL 0.58 - 0.96 mg/dL [facility] Estimated Glomerular Filtration Rate 79 mL/min/1.73m >=60 mL/min/1.73m [facility] Glucose [Mass/Vol] 100 mg/dL High 74 - 99 mg/dL [facility] Potassium [Moles/Vol] 4.3 mmol/L 3.7 - 5.1 mmol/L [facility] Protein [Mass/Vol] 7.1 g/dL 6.3 - 8.0 g/dL [facility] Sodium [Moles/Vol] 140 mmol/L 136 - 144 mmol/L [facility] Urea nitrogen [Mass/Vol] 11 mg/dL 7 - 21 mg/dL [facility] T3 FREE BLDon 03-29-2023 Free T3 [Mass/Vol] 3.0 pg/mL 2.3 - 4.1 pg/mL [facility] T4 FREE/FREE THYROXon 2022 Free T4 [Mass/Vol] 1.5 ng/dL 0.9 - 1.7 ng/dL [facility] TSH BLDon 03-29-2023 TSH Qn 3.910 m[IU]/L 0.270 - 4.200 mIU/L [facility] VITAMIN D 25 HYDROXYon 03-29 25-hydroxyvitamin D3 [Mass/Vol] 65.6 ng/mL 31.0 - 80.0 ng/mL [facility] 25(OH)D3 SerPl-mCncon 2022 25-hydroxyvitamin D3 [Mass/Vol] 65.6 ng/mL Normal 31.0-80.0 [facility] Comment on above: Order Comment: Speci men Type: BLOOD SPECIMENOrdering Facility: [facility] Address: [address] [place] [address] Result Comment: Clas sification of 25 [place] Vitamin D status: Deficiency/Insufficiency: < or = 30 ng/ml. Sufficiency/Optimal Levels: 31-80 ng/mL Toxicity: > 100 ng/mL. Test performed by chemiluminescent immunoassay. Performed By: #### 1 989-3 ####[facility] LABCLIA [id number] [place] [address] [place] CBC panel Auto (Bld)on 03-28 Erythrocyte distribution width (RBC) [Ratio] 13.1 % 11.5 - 15.0 % [facility] Hematocrit (Bld) [Volume fraction] 45.8 % 36.0 - 46.0 % [facility] Hemoglobin (Bld) [Mass/Vol] 15.9 g/dL High 11.5 - 15.5 g/dL [facility] MCH (RBC) [Entitic mass] 33.8 pg 26.0 - 34.0 pg [facility] MCHC (RBC) [Mass/Vol] 34.7 g/dL 30.5 - 36.0 g/dL [facility] MCV (RBC) [Entitic vol] 97.2 fL 80.0 - 100.0 fL [facility] Nucleated RBC (Bld) [#/Vol] <0.01 k/uL [facility] Platelet mean volume (Bld) [Entitic vol] 11.4 fL 9.0 - 12.7 fL [facility] Platelets (Bld) [#/Vol] 233 10*3/uL 150 - 400 k/uL [facility] RBC (Bld) [#/Vol] 4.71 10*6/uL 3.90 - 5.2 0 m/uL [facility] WBC (Bld) [#/Vol] 8.83 10*3/uL 3.70 - 11. 00 k/uL [facility] Erythrocyte distribution width (RBC) [Ratio] 13.1 % Normal 11.5-15.0 [facility] Comment on above: Order Comment: Speci men Type: BLOOD SPECIMENOrdering Facility: [facility] Address: [address] [place] [address] Performed By: #### 5 8410-2 ####[facility] LABIA [id number] [address] [place] Hematocrit (Bld) [Volume fraction] 45.8 % Normal 36.0-46.0 [facility] Comment on above: Order Comment: Speci men Type: BLOOD SPECIMENOrdering Facility: [facility] Address: [address] [place] [address] Performed By: #### 5 8410-2 ####[facility] LABIA [id number] [place] [address] [place] Hemoglobin (Bld) [Mass/Vol] 15.9 g/dL High 11.5-15.5 [facility] Comment on above: Order Comment: Speci men Type: BLOOD SPECIMENOrdering Facility: [facility] Address: [address] [place] [address] Performed By: #### 5 8410-2 ####[facility] LABCLIA [id number] [place] [address] [place] MCH (RBC) [Entitic mass] 33.8 pg Normal 26.0-34.0 [facility] Comment on above: Order Comment: Speci men Type: BLOOD SPECIMENOrdering Facility: [facility] Address: [address] [place] [address] Performed By: #### 5 8410-2 ####[facility] LABIA [id number] [place] [address] [place] MCHC (RBC) [Mass/Vol] 34.7 g/dL Normal 30.5-36.0 [facility] Comment on above: Order Comment: Speci men Type: BLOOD SPECIMENOrdering Facility: [facility] Address: [address] [place] [address] Performed By: #### 5 8410-2 ####[facility] LABIA [id number] [place] [address] [place] MCV (RBC) [Entitic vol] 97.2 fL Normal 80.0-100.0 [facility] Comment on above: Order Comment: Speci men Type: BLOOD SPECIMENOrdering Facility: [facility] Address: [address] [place] [address] Performed By: #### 5 8410-2 ####[facility] LABIA [id number] [place] [address] [place] Nucleated RBC (Bld) [#/Vol] 10*3/uL Normal <0.01 [facility] Comment on above: Order Comment: Speci men Type: BLOOD SPECIMENOrdering Facility: [facility] Address: [address] [place] [address] Performed By: #### 5 8410-2 ####[facility] LABIA [id number] [place] [address] [place] Platelet mean volume (Bld) [Entitic vol] 11.4 fL Normal 9.0-12.7 [facility] Comment on above: Order Comment: Speci men Type: BLOOD SPECIMENOrdering Facility: [facility] Address: [address] [place] [address] Performed By: #### 5 8410-2 ####[facility] LABCLIA [id number] [place] [address] [place] Platelets (Bld) [#/Vol] 233 10*3/uL Normal 150-400 [facility] Comment on above: Order Comment: Speci men Type: BLOOD SPECIMENOrdering Facility: [facility] Address: [address] [place] [address] Performed By: #### 5 8410-2 ####[facility] LABIA [id number] [place] [address] [place] RBC (Bld) [#/Vol] 4.71 10*6/uL Normal 3.90-5.20 [facility] Comment on above: Order Comment: Speci men Type: BLOOD SPECIMENOrdering Facility: [facility] Address: [address] [place] [address] Performed By: #### 5 8410-2 ####[facility] LABIA [id number] [place] [address] [place] WBC (Bld) [#/Vol] 8.83 10*3/uL Normal 3.70-11.00 [facility] Comment on above: Order Comment: Speci men Type: BLOOD SPECIMENOrdering Facility: [facility] Address: [address] [place] [address] Performed By: #### 5 8410-2 ####[facility] LABIA [id number] [place] [address] [place] CNOVon 03-28-2023 CNOV Office Visit (INTMWS ) ROBI OLIVARES ([id number]) 1950 F Date Time Provider Department 03/28/23 1:20 PM JOSE HYDE INTMWS During your visit today, we recorded the following information about you: Temperature Pulse Respiration Blood pressure 98.4 degrees 52/minute 18/minute 116/66 Weight 46.3 kg Jose Hyde MD 04/29/2023 12:36 AM Signed This note was created using [employer]. Subjective Robi Olivares is a 72 year old female. Patient presents with: Established Patient: Follow up SUBJECTIVE: Robi Olivares is a 72 year old year old lady here today for follow up appointment for review of medical conditions. Stressors noted but doing okay. Fatigue noted Following with Dr. Fletcher. Noted that did not know why was getting pills from [facility]. Reviewed that did not call in July to have sent there but med that she had requested this. Wonders if needs PPI routinely Still has episodes of incontinence due to IBS with diarrhea. Asked about an appointment that was scheduled for tomorrow. Looks like was just for labs. PAST MEDICAL HISTORY Diagnosis Date Acute gastritis without mention of hemorrhage Acute myocardial infarction of other specified sites, episode of care unspecified Myocardial Infarction--DR WHITE Adenomatous colon polyp TA on Jun 2015 colonoscopy (Dr. 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 Davison Severe vulvar dysplasia Vitamin D Deficiency 08/20/2009 Current Outpatient Medications Medication Sig amLODIPine (NORVASC) 10 mg tablet Take 1 tablet by mouth once daily. aspirin, enteric coated (ASPIRIN, ENTERIC COATED) 81 mg EC tablet Take 1 tablet by mouth once daily. (Patient not taking: Reported on 03/28/2023) atenolol (TENORMIN) 25 mg tablet take 1 tablet by mouth daily atorvastatin (LIPITOR) 80 mg tablet Take 1 tablet by mouth daily at bedtime. For cholesterol. buPROPion (WELLBUTRIN) 100 mg tablet Take 1 tablet by mouth once daily. cholecalciferol, vitamin D3, 100 mcg (4,000 unit) cap Take by mouth. clopidogrel (PLAVIX) 75 mg tablet Take 1 tablet by mouth once daily. dicyclomine (BENTYL) 10 mg capsule Take 1 capsule by mouth twice daily. as directed- (Patient not taking: Reported on 03/28/2023) ferrous sulfate 325 mg (65 mg iron) tablet Take 1 tablet by mouth every other day. levothyroxine (SYNTHROID) 25 mcg tablet Take 1 tablet by mouth daily before breakfast. loperamide (IMODIUM) 2 mg cap(s) Take 2 at onset of loose stools, then 1 after each loose stool as needed up to 6 pills per day nitroglycerin sublingual (NITROQUICK) 0.4 mg SL tablet Dissolve 1 tablet under the tongue as needed. DISSOLVE ON TONGUE FOR CHEST PAIN. IF NO PAIN RELIEF, CALL 911 nystatin (MYCOSTATIN) powder Apply 1 application to affected area three times daily. pantoprazole DR (PROTONIX) 40 mg tablet Take 1 tablet by mouth once daily. sertraline (ZOLOFT) 100 mg tablet Take 1 tablet by mouth once daily. valACYclovir (VALTREX) 500 mg tablet Take 1 tablet by mouth once daily. No current facility-administered medications for this visit. Review of Systems Objective BP 116/66 Pulse (!) 52 Temp 36.9 ?C (98.4 ?F) Resp 18 Wt 46.3 kg (102 lb) SpO2 96% BMI 18.07 kg/m? Physical Exam Assessment and Plan Jose Hyde MD 04/29/2023 12:36 AM Signed This note was created using NoteWriter. Subjective Robi Olivares is a 72 year old female. No acute concerns to address. Stable on current meds. No adverse effects. Blood pressure controlled without adverse effects from medications. Clinically euthyroid. See assessment and plan for other issues addressed. PAST MEDICAL HISTORY Diagnosis Date Acute gastritis without mention of hemorrhage Acute myocardial infarction of other specified sites, episode of care unspecified Myocardial Infarction--DR WHITE Adenomatous colon polyp TA on Jun 2015 colonoscopy (Dr. Brown) Anemia Bipolar disorder, unspecified (HCC) Manic-depressive Blood type O+ Checked in 2016 CAD (coronary artery disease) [place] 1996 Diverticulosis of colon (without mention of hemorrhage) Diverticulosis Family history of malignant neoplasm of gastrointestinal tract Generalized osteoarthrosis, unspecified site General Osteoarthritis Hiatal hernia HTN (hypertension) Irritable bowel syndrome 12/05/2007 (more content not included)... Normal [facility] Comprehensive metabolic 2000 panelon 03-28-2023 Albumin [Mass/Vol] 4.2 g/dL Normal 3.9-4.9 [facility] Comment on above: Order Comment: Speci men Type: BLOOD SPECIMENOrdering Facility: [facility] Address: [address] [place] [address] Performed By: #### 3 016-3, 23229-4, 3024-7, 3051-0 ####[facility] LABIA [id number] [place] [address] [place] ALP [Catalytic activity/Vol] 79 U/L Normal 34-123 [facility] Comment on above: Order Comment: Speci men Type: BLOOD SPECIMENOrdering Facility: [facility] Address: [address] [place] [address] Performed By: #### 3 016-3, 55920-8, 3024-7, 3051-0 ####[facility] LABIA [id number] [place] [address] [place] ALT [Catalytic activity/Vol] 14 U/L Normal 7-38 [facility] Comment on above: Order Comment: Speci men Type: BLOOD SPECIMENOrdering Facility: [facility] Address: [address] [place] [address] Performed By: #### 3 016-3, 25845-4, 3024-7, 3051-0 ####[facility] LABIA [id number] [place] [address] [place] Anion gap [Moles/Vol] 12 mmol/L Normal 9-18 [facility] Comment on above: Order Comment: Speci men Type: BLOOD SPECIMENOrdering Facility: [facility] Address: [address] [place] [address] Performed By: #### 3 016-3, 32604-9, 3024-7, 3050-0 ####[facility] LABCLIA [id number] [address] [address] [place] AST [Catalytic activity/Vol] 23 U/L Normal 13-35 [facility] Comment on above: Order Comment: Speci men Type: BLOOD SPECIMENOrdering Facility: [facility] Address: [address] [place] [address] Performed By: #### 3 016-3, 87745-6, 3023-12, 3050-0 ####[facility] LABCLIA [id number] [place] [address] [place] Bilirubin [Mass/Vol] 0.3 mg/dL Normal 0.2-1.3 [facility] Comment on above: Order Comment: Speci men Type: BLOOD SPECIMENOrdering Facility: [facility] Address: [address] [place] [address] Performed By: #### 3 016-3, 39349-3, 3023-12, 0 ####[facility] LABIA [id number] [place] [address] [place] Calcium [Mass/Vol] 9.7 mg/dL Normal 8.5-10.2 [facility] Comment on above: Order Comment: Speci men Type: BLOOD SPECIMENOrdering Facility: [facility] Address: [address] [place] [address] Performed By: #### 3 016-3, 67733-7, 3023-12, 0 ####[facility] LABCLIA [id number] [place] [id number] [place] Chloride [Moles/Vol] 103 mmol/L Normal 97-105 [facility] Comment on above: Order Comment: Speci men Type: BLOOD SPECIMENOrdering Facility: [facility] Address: [address] [place] [address] Performed By: #### 3 016-3, 22802-0, 3023-12, 3050-0 ####[facility] LABIA [id number] [place] [id number] [place] CO2 [Moles/Vol] 25 mmol/L Normal 22-30 [facility] Comment on above: Order Comment: Speci men Type: BLOOD SPECIMENOrdering Facility: [facility] Address: [address] [place] [address] Performed By: #### 3 016-3, 27743-4, 7, 3050-0 ####[facility] LABIA [id number] [place] [address] [place] Creatinine [Mass/Vol] 0.79 mg/dL Normal 0.58-0.96 [facility] Comment on above: Order Comment: Speci men Type: BLOOD SPECIMENOrdering Facility: [facility] Address: [address] [place] [address] Performed By: #### 3 016-3, 75969-4, 7, 0 ####[facility] [id number] [place] [address] [place] Creatinine and Glomerular filtration rate.predicted panel (S/P/Bld) 79 mL/min/1.73m??? Normal >=60 [facility] Comment on above: Order Comment: Speci men Type: BLOOD SPECIMENOrdering Facility: [facility] Address: [address] [place] [address] Result Comment: Gracie mated Glomerular Filtration Rate (eGFR) is calculated using the 2020 CKD-EPI creatinine equation. This equation utilizes serum creatinine, sex, and age as parameters. The creatinine assay has traceable calibration to isotope dilution-mass spectrometry. Refer to KDIGO guidelines for clinical interpretation. In patients with unstable renal function, e.g. those with acute kidney injury, the eGFR may not accurately reflect actual GFR. Performed By: #### 3 016-3, 89711-8, 3023-7, 3050-0 ####[facility] LABIA [id number] [address] [address] [place] Glucose [Mass/Vol] 100 mg/dL High 74-99 [facility] Comment on above: Order Comment: Speci men Type: BLOOD SPECIMENOrdering Facility: [facility] Address: [address] [place] [address] Result Comment: The [place] Diabetes [employer] (ADA) provides guidance for cutoff values for fasting glucose and random glucose. The ADA defines fasting as no caloric intake for at least 8 hours. Fasting plasma glucose results between 100 to 125 [...] Standards of Medical Care in Diabetes 2016, [place] [employer]. Diabetes Care. 2016.39(Suppl 1). Performed By: #### 3 016-3, 90723-0, 7, 3050-0 ####[facility] LABCLIA [id number] [place] [address] [place] Potassium [Moles/Vol] 4.3 mmol/L Normal 3.7-5.1 [facility] Comment on above: Order Comment: Speci men Type: BLOOD SPECIMENOrdering Facility: [facility] Address: [address] [place] [address] Performed By: #### 3 016-3, 11635-6, 7, 305-0 ####[facility] LABCLIA [id number] [place] [address] [place] Protein [Mass/Vol] 7.1 g/dL Normal 6.3-8.0 [facility] Comment on above: Order Comment: Speci men Type: BLOOD SPECIMENOrdering Facility: [facility] Address: [address] [place] [address] Performed By: #### 3 016-3, 07574-5, 3027, 305-0 ####[facility] LABCLIA [id number] [place] [id number] [place] Sodium [Moles/Vol] 140 mmol/L Normal 136-144 [facility] Comment on above: Order Comment: Speci men Type: BLOOD SPECIMENOrdering Facility: [facility] Address: [address] [place] [address] Performed By: #### 3 016-3, 83987-0, 3027, 3051-0 ####[facility] LABIA [id number] [place] [address] [place] Urea nitrogen [Mass/Vol] 11 mg/dL Normal 7-21 [facility] Comment on above: Order Comment: Speci men Type: BLOOD SPECIMENOrdering Facility: [facility] Address: [address] [place] [address] Performed By: #### 3 016-3, 00260-1, 7, 305-0 ####[facility] [id number] [place] [id number] [place] T3Free SerPl-mCncon 03-28-20 23 Free T3 [Mass/Vol] 3.0 pg/mL Normal 2.3-4.1 [facility] Comment on above: Order Comment: Speci men Type: BLOOD SPECIMENOrdering Facility: [facility] Address: [address] [place] [address] Performed By: #### 3 016-3, 10782-7, 3024-7, 3051-0 ####[facility] [id number] [place] [id number] [place] T4 Free SerPl-mCncon 10-2 023 Free T4 [Mass/Vol] 1.5 ng/dL Normal 0.9-1.7 [facility] Comment on above: Order Comment: Speci men Type: BLOOD SPECIMENOrdering Facility: [facility] Address: [address] [place] [address] Performed By: #### 3 016-3, 82262-6, 3024-7, 3051-0 ####[facility] LABCLIA [id number] [place] [id number] [place] TSH SerPl-aCncon 03-28-2023 TSH Qn 3.910 m[IU]/L Normal 0.270-4.200 [facility] Comment on above: Order Comment: Speci men Type: BLOOD SPECIMENOrdering Facility: [facility] Address: [address] [place] [address] Performed By: #### 3 016-3, 00885-5, 3024-7, 3051-0 ####[facility] LABIA [id number] [address] OF [facility] Jatinder 09-09-2021 AYE Telephone (AGCDOYLEPOPrisca ) ROBI OLIVARES ([id number]) 1950 F Date Time Provider Department 09/09/21 ISABELA DUPREE During your visit today, we recorded the following information about you: Zhanna Villasenor LPN 09/09/2021 2:00 PM Signed ----- Message from Isabela Dupree APRN.CELLOPHANE TESTER sent at 09/09/2021 2:00 PM EDT ----- Please call the patient and report echo results revealed preserved LV Function 69% and stable mild LVH. Patient has mild MR. Recommend continue current medical therapy. Thanks, Isabela Dupree APRN.DEVIN Villasenor LPN 09/09/2021 2:02 PM Signed Left message for to call [facility] for test results. [facility] phone number provided. SANTA Mtz RN 09/10/2021 8:14 AM Signed Pt notified of below results. Verbalized understanding. No further questions or concerns. Allergies As of Date: 09/09/2021 Noted Allergy Reaction CODEINE 10/11/2007 4 - Hives DARVON (PROPOXYPHENE HCL) 10/11/2007 4 - Hives MORPHINE 09/14/2017 14 - Other: See Comments Comments: Made tongue swell PENICILLINS 10/11/2007 10 - Anaphylaxis SIMVASTATIN 04/17/2012 14 - Other: See Comments Comments: elevated LFTS; had tolerated Lipitor for years without problem Date Reviewed: 08/09/2021 Reviewed by: Zhanna Tracy APRN.CELLOPHANE TESTER - Fully Assessed Reason for Visit: Results [95] Prescriptions as of 09/17/2021 - amLODIPine (NORVASC) 10 mg tablet Take 1 tablet by mouth once daily. - ferrous sulfate 325 mg (65 mg iron) tablet Take 1 tablet by mouth every other day. - atorvastatin (LIPITOR) 80 mg tablet Take 1 tablet by mouth daily at bedtime. For cholesterol. - atenolol (TENORMIN) 25 mg tablet Take 1 tablet by mouth once daily. - valACYclovir (VALTREX) 500 mg tablet Take 1 tablet by mouth once daily. - levothyroxine (SYNTHROID) 25 mcg tablet Take 1 tablet by mouth daily before breakfast. - buPROPion (WELLBUTRIN) 100 mg tablet Take 1 tablet by mouth once daily. - pantoprazole DR (PROTONIX) 20 mg tablet Take 1 tablet by mouth twice daily. - clopidogrel (PLAVIX) 75 mg tablet Take 1 tablet by mouth once daily. - sertraline (ZOLOFT) 100 mg tablet Take 1 tablet by mouth once daily. - loperamide (IMODIUM) 2 mg cap(s) Take one every morning. May repeat as needed. - L.acid/L.casei/B.bif/B. skye/FOS (PROBIOTIC BLEND ORAL) Take 1 capsule by mouth once daily. - polyethylene glycol 3350 (MIRALAX, GLYCOLAX) 17 gram/dose powder Use as directed for Miralax / Gatorade Bowel Prep Kit - Gatorade Sports Drink Use as directed for Miralax / Gatorade Bowel Prep Kit - Bisacodyl (DULCOLAX) 5 mg tab Use as directed for Miralax / Gatorade Bowel Prep Kit - nystatin (MYCOSTATIN) powder Apply 1 application to affected area three times daily. - gabapentin (NEURONTIN) 300 mg capsule Take 2 capsules by mouth daily at bedtime. As directed - nitroglycerin sublingual (NITROQUICK) 0.4 mg SL tablet Dissolve 1 tablet under the tongue as needed. DISSOLVE ON TONGUE FOR CHEST PAIN. IF NO PAIN RELIEF, CALL 911 - cholecalciferol, vitamin D3, (VITAMIN D3) 4,000 unit cap Take by mouth. - clonazePAM (KLONOPIN) 0.5 mg tablet Take 1 tablet by mouth once daily as needed for up to 60 days. - aspirin, enteric coated (ECOTRIN LOW STRENGTH) 81 mg ORAL EC tablet Take 1 tablet by mouth once daily. Facility-Administered Medications as of 09/17/2021 - perflutren lipid microspheres 1.3 mL in NaCl (PF) 0.9% 10 mL injection (DEFINITY) - sodium chloride 0.9 % (flush) 10 mL (BD POSIFLUSH) Problem List As Of Date 09/09/2021 Noted Resolved Essential hypertension [I10] MIXED HYPERLIPIDEMIA [E78.2] BIPOLAR DISORDER NOS [F31.9] Acquired hypothyroidism [E03.9] Acute myocardial infarction of other specified * 09/12/2016 DIVERTICULOSIS OF COLON W/O BLEED [K57.30] GENERAL OSTEOARTHROSIS [M15.9] IRRITABLE COLON [K58.9] 12/05/2007 ASCVD [I25.10] Vitamin D Deficiency [E55.9] 08/20/2009 Hypokalemia [E87.6] 12/03/2009 Anemia [D64.9] Acute gastritis without mention of hemorrhage [*04/20/2010 Duodenitis without mention of hemorrhage [K29.8*04/20/2010 Diarrhea [R19.7] 04/20/2010 Family history of malignant neoplasm of gastroi*04/20/2010 Pyoderma, unspecified [L08.0] 05/05/2010 Acne Vulgaris: Inflammatory Grade III to IV: no*05/05/2010 Excoriations [T14.8XXA] 05/05/2010 Xerosis cutis [L85.3] 05/05/2010 Solar lentigines [L81.4] 05/05/2010 Actinic Damage//Sun-damaged skin [L57.8] 05/05/2010 CAD (coronary artery disease), picayune coronary *10/14/2010 Coronary stent 10/14/2010 Carcinoma in situ, 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 Normal [facility] CNPNon 08-31-2021 CNPN Telephone (AGCARDPOB ) ROBI OLIVARES ([id number]) 1950 F Date Time Provider Department 08/31/21 ZHANNA TRACY During your visit today, we recorded the following information about you: Zhanna Tracy APRN.DEVIN 08/31/2021 9:37 AM Signed Can you please ask the patient how her blood pressures have been at home (ask for her home BP log) since increasing her norvasc from 5 to 10 mg at our last office visit. Thank you! Zhanna Tracy APRN.DEVIN Mata RN 08/31/2021 9:44 AM Signed Call to pt, spouse answered and did not know her BP results. [facility] pt will call back when available. Katrin Mata RN 09/07/2021 10:18 AM Signed Call to pt for BP review, states has been down some but still has days where it is high. Will bring in log to today's Echo appt at 2:30pm Katrin Mata RN 09/07/2021 3:03 PM Signed According to BP log from pt, BP's ranging on average from 130s-140s / 70-80s, with a lowest BP of 114/69 and highest BP of 156/81. Katrin Mata RN 09/10/2021 8:15 AM Signed Pt notified of below instructions. Verbalized understanding, no further questions or concerns. Patient Update Isabela Dupree APRN.CELLOPHANE TESTER You 16 hours ago (4:01 PM) NI Blood Pressure under reasonable control. BP Goal <130/80. ?Continue current medications and advise patient to call the office if BP is consistently over 130/80. We also recommend low sodium diet and reducing caffeine intake. Thanks. Isabela Dupree APRN.CELLOPHANE TESTER Message text Allergies As of Date: 08/31/2021 Noted Allergy Reaction CODEINE 10/11/2007 4 - Hives DARVON (PROPOXYPHENE HCL) 10/11/2007 4 - Hives MORPHINE 09/14/2017 14 - Other: See Comments Comments: Made tongue swell PENICILLINS 10/11/2007 10 - Anaphylaxis SIMVASTATIN 04/17/2012 14 - Other: See Comments Comments: elevated LFTS; had tolerated Lipitor for years without problem Date Reviewed: 08/09/2021 Reviewed by: Zhanna Tracy APRN.CELLOPHANE TESTER - Fully Assessed Reason for Visit: Patient Update [1234] Prescriptions as of 09/10/2021 - amLODIPine (NORVASC) 10 mg tablet Take 1 tablet by mouth once daily. - ferrous sulfate 325 mg (65 mg iron) tablet Take 1 tablet by mouth every other day. - atorvastatin (LIPITOR) 80 mg tablet Take 1 tablet by mouth daily at bedtime. For cholesterol. - atenolol (TENORMIN) 25 mg tablet Take 1 tablet by mouth once daily. - valACYclovir (VALTREX) 500 mg tablet Take 1 tablet by mouth once daily. - levothyroxine (SYNTHROID) 25 mcg tablet Take 1 tablet by mouth daily before breakfast. - buPROPion (WELLBUTRIN) 100 mg tablet Take 1 tablet by mouth once daily. - pantoprazole DR (PROTONIX) 20 mg tablet Take 1 tablet by mouth twice daily. - clopidogrel (PLAVIX) 75 mg tablet Take 1 tablet by mouth once daily. - sertraline (ZOLOFT) 100 mg tablet Take 1 tablet by mouth once daily. - loperamide (IMODIUM) 2 mg cap(s) Take one every morning. May repeat as needed. - L.acid/L.casei/B.bif/B. skye/FOS (PROBIOTIC BLEND ORAL) Take 1 capsule by mouth once daily. - polyethylene glycol 3350 (MIRALAX, GLYCOLAX) 17 gram/dose powder Use as directed for Miralax / Gatorade Bowel Prep Kit - Gatorade Sports Drink Use as directed for Miralax / Gatorade Bowel Prep Kit - Bisacodyl (DULCOLAX) 5 mg tab Use as directed for Miralax / Gatorade Bowel Prep Kit - nystatin (MYCOSTATIN) powder Apply 1 application to affected area three times daily. - gabapentin (NEURONTIN) 300 mg capsule Take 2 capsules by mouth daily at bedtime. As directed - nitroglycerin sublingual (NITROQUICK) 0.4 mg SL tablet Dissolve 1 tablet under the tongue as needed. DISSOLVE ON TONGUE FOR CHEST PAIN. IF NO PAIN RELIEF, CALL 911 - cholecalciferol, vitamin D3, (VITAMIN D3) 4,000 unit cap Take by mouth. - clonazePAM (KLONOPIN) 0.5 mg tablet Take 1 tablet by mouth once daily as needed for up to 60 days. - aspirin, enteric coated (ECOTRIN LOW STRENGTH) 81 mg ORAL EC tablet Take 1 tablet by mouth once daily. Facility-Administered Medications as of 09/10/2021 - perflutren lipid microspheres 1.3 mL in NaCl (PF) 0.9% 10 mL injection (DEFINITY) - sodium chloride 0.9 % (flush) 10 mL (BD POSIFLUSH) Problem List As Of Date 08/31/2021 Noted Resolved Essential hypertension [I10] MIXED HYPERLIPIDEMIA [E78.2] BIPOLAR DISORDER NOS [F31.9] Acquired hypothyroidism [E03.9] Acute myocardial infarction of other specified * 09/12/2016 DIVERTICULOSIS OF COLON W/O BLEED [K57.30] GENERAL OSTEOARTHROSIS [M15.9] IRRITABLE COLON [K58.9] 12/05/2007 ASCVD [I25.10] Vitamin D Deficiency [E55.9] 08/20/2009 Hypokalemia [E87.6] 12/03/2009 Anemia [D64.9] Acute gastritis without mention of hemorrhage [*04/20/2010 Duodenitis without mention of hemorrhage [K29.8*04/20/2010 Diarrhea [R19.7] 04/20/2010 Family history of malignant neoplasm of gastroi*04/20/2010 Pyoderma, unspecified [L08. (more content not included)... Normal [facility] Final Surgical Pathology Rep chung 11-04-2020 Final Surgical Pathology Report . Pathology Reports Accession: Collected Date/Time: Received Date/Time: Pathologist: [id number] 11/02/2020 09:55 EDT 11/03/2020 14:58 EDT MD JOE WRIGHT Final Surgical Pathology Report DIAGNOSIS: A) CECUM, POLYPECTOMY - - TUBULAR ADENOMA. B) RECTUM, POLYPECTOMY - - TUBULAR ADENOMA. COMMENT: [facility] [id number] CLINICAL INFORMATION: Procedure: COLONOSCOPY WITH ARGON PLASMA COAGULATION Preoperative diagnosis: HISTORY OF COLON POLYPS Postoperative diagnosis: HISTORY OF COLON POLYPS SPECIMEN: A CECAL POLYP B RECTUM POLYP GROSS DESCRIPTION: A. Received in formalin, labeled with the patients name, Case #[id number], and cecal polyp are 4 seymour tissue fragments ranging from 0.1 to 0.4 cm. TS -1. B. Received in formalin labeled rectum polyp are 2 seymour tissue fragments measuring 0.1 and 0.2 cm. TS -1. Dictated by KARSTEN OVIEDO MICROSCOPIC DESCRIPTION: Slides reviewed. Electronically Signed by Pathology Report verified by [facility] Electronically signed by JOE WRIGHT MD Sign out Date: 11/04/2020 14:30 Performing Lab: [address] ([place]) Comment on above: Performed By: #### S PFR #### [place] [id number] Surgical Tissue Examon 03-19 Surgical Tissue Exam Test performed at [place] [address] NAME: ROBI OLIVARES REQUESTING: SELENE RATLIFF MD COPY TO: JOSE HYDE REPORT AMENDED FOR: This report is being amended to reflect a change in the date collected field. The change is as follows: 03/19/2020. DR. Selene Ratliff was notified of this change by e-mail on 04/07/20. EVELYN SAEZ M.D., PATHOLOGIST (Electronic signature on file) Signed out: 04/08/2020 10:51 FINAL DIAGNOSIS: A) CECUM, BIOPSIES - TUBULAR ADENOMA. B) COLON, RANDOM BIOPSIES - BENIGN COLONIC MUCOSA. OPERATIVE PROCEDURE: Colonoscopy with biopsy and polypectomy CLINICAL INFORMATION: Altered bowel habits; TBD by physician GROSS DESCRIPTION: A) Cecal polyp Received in formalin labeled cecal polyp is an irregular seymour soft tissue fragment measuring 0.2 x 0.2 x 0.2 cm. The specimen is submitted entirely in cassette A. B) Random mucosal bx Received in formalin labeled random mucosal biopsy are multiple irregular seymour soft tissue fragments aggregating to 1 x 0.4 x 0.2 cm. The specimen is submitted entirely in cassette B. OLS/pkp EVELYN SAEZ M.D., PATHOLOGIST (Electronic signature on file) Signed out: 03/23/2020 16:53 PRINTED: 04/07/2020 Page 1 of 1 Normal [facility] Comment on above: Performed By: #### S URG #### [place] [address] Coronavirus 2019on 0 COVID 19 Result GUEST SERVICES COORDINATOR Negative Normal [facility] Comment on above: Result Comment: Nega tive for COVID19 (SARS CoV2) by PCR. This test was developed and its performance characteristics determined by [facility]'s Karsten Sellers Pathology and Laboratory Medicine [place]. This test has been authorized by FDA under an Emergency Use Authorization (EUA). This test has been validated in accordance with the FDA's Guidance Document Policy for Diagnostics Testing in Laboratories Certified to Perform High Complexity Testing under CLIA prior to Emergency use Authorization for Coronavirus Disease 2019 during the Public Health Emergency issued on August 17, 2019. Performing Laboratory: [facility] [address] [place] [id number] Performed By: #### C D19X #### [place] [address] ALLIED HEALTHon 11-23-2017 ALLIED HEALTH HNO ID: [id number]: Esequiel (Rt) Janine Mandel: (none)Author Type: TechnicianType: Allied HealthFiled: 11/23/2017 5:13 PMNote Text: Radiology Service Progress NotePATIENT NAME: Robi MéndezN: [id number] OF SERVICE: November 23, 2017TIME: 5:13 PMPATIENT IDENTITY VERIFICATION COMPLETED USING TWO (2) METHODS: Patientconfirmed name verbally and ID band matches..PATIENT GENDER DATA: Female. status: : NoBreastfeeding status: NO.PATIENT RELEVANT IMPLANT DATA REVIEWED: Not ApplicableRADIOLOGY DEPARTMENT: General X-ray: Exam(s) Completed: Spine X-Ray(s):Lumbar AP / LAT / [id number] IV DATA: Not applicableSIGNED BY: Savita Donato 2017 5:13 PM [facility] XR LUMBAR 2V AP/LATon 2017 XR LUMBAR 2V AP/LAT * * *Final Report* * *DATE OF EXAM: Nov 23 2017 5:11PM FVX [id number] - XR LUMBAR 2V AP/LAT / REASON: Scoliosis, unspecified * * * * Physician Interpretation * * * * Clinical: Back painTechnique:3 views of the lumbar spineCOMPARISON: 11/28/2016RESULT: No evidence of acute fracture or subluxation [...] levoscoliosis. Extensive atherosclerosis is seen in the aorta.IMPRESSION:Multil evel degenerative disc disease with L2-L5 fusion and mild scoliosis as well as evidence of atherosclerosis without significant interval change.Front Desk Officer : MARLYN Transcribe Date/Time: Nov 23 2017 6:01PDictated by : SUE TAVERA MDThis examination was interpreted and the report reviewed and electronically signed by: SUE TAVERA MD on Nov 23 2017 6:02PM [id number] CN [facility] Office Visit: Pat 03-20-20 Fall risk assessment No Invalid Interpretation Code [employer] Work Phone: Protein mass conc Done Invalid Interpretation Code [employer] Work Phone: Replaced Document: Akilah GARCIA Observationson 08-30-2016 EKG QRS axis 4 deg Invalid Interpretation Code [facility] Work Phone: [phone] Interpretation Sinus Bradycardia WITHIN NORMAL LIMITS Invalid Interpretation Code [facility] Work Phone: [phone] P [place] -27 deg Invalid Interpretation Code [facility] Work Phone: [phone] CT Interval 140 ms Invalid Interpretation Code [facility] Work Phone: [phone] QRS Duration 96 ms Invalid Interpretation Code [facility] Work Phone: [phone] QT Interval new path ms Invalid Interpretation Code [employer] Work Phone: [phone] QTc [place] 458 ms Invalid Interpretation Code [employer] Work Phone: [phone] T [place] 27 deg Invalid Interpretation Code [employer] Work Phone: [phone] Clinical Lists Update: [facility] car builder 08-26-2016 Left ventricular Ejection fraction 65 % Invalid Interpretation Code [employer] Work Phone: [phone] Clinical Lists Update: [facility] car builder 01-19-2016 Calcium mass conc 9.5 mg/dL Invalid Interpretation Code [employer] Work Phone: [phone] Chloride molar conc 104 mmol/L Invalid Interpretation Code [employer] Work Phone: [phone] CO2 ppres (BldV) 27.0 mmol/L Invalid Interpretation Code [employer] Work Phone: [phone] Creatinine mass conc 1.02 mg/dL Invalid Interpretation Code [employer] Work Phone: [phone] Glucose mass conc 96 mg/dL Invalid Interpretation Code [employer] Work Phone: [phone] Hematocrit Auto Volume Fraction (Bld) 38.2 % Invalid Interpretation Code [employer] Work Phone: [phone] Hemoglobin mass conc (Bld) 12.8 g/dL Invalid Interpretation Code [facility] Work Phone: [phone] Platelets Auto #/vol (Bld) 162 10*3/mm3 Invalid Interpretation Code [facility] Work Phone: [phone] Potassium molar conc 3.5 mmol/L Invalid Interpretation Code [facility] [employer] Work Phone: [phone] Sodium molar conc 137 mmol/L Invalid Interpretation Code [employer] Work Phone: [phone] Thyrotropin Qn 2.83 u[iU]/mL Invalid Interpretation Code [employer] Work Phone: [phone] Urea nitrogen mass conc 15 mg/dL Invalid Interpretation Code [employer] Work Phone: [phone] Urea nitrogen/Creatinin e mass ratio 14.7 mg/mg Invalid Interpretation Code [employer] Work Phone: [phone] WBC Auto #/vol (Bld) 8.7 10*3/uL Invalid Interpretation Code [facility] [employer] Work Phone: [phone] Lab Report: Lipid Profileon 08-17-2015 Cholesterol in HDL mass conc 45 mg/dL Invalid Interpretation Code [employer] Work Phone: [phone] Cholesterol in LDL mass conc 95 mg/dL Invalid Interpretation Code 0-130 [employer] Work Phone: [phone] Cholesterol mass conc 161 mg/dL Invalid Interpretation Code 200 [employer] Work Phone: [phone] Lipoprotein.pre-be ta mass conc 21 mg/dL Invalid Interpretation Code 5-40 [employer] Work Phone: [phone] Triglyceride mass conc 103 mg/dL Invalid Interpretation Code [facility] Work Phone: [phone] Lab Report: Liver Profileon 08-17-2015 Albumin mass conc 3.6 g/dL Invalid Interpretation Code 3.4-5.0 [employer] Work Phone: [phone] ALP enzyme act/vol (Bld) 99 U/L Invalid Interpretation Code 50-136 [employer] Work Phone: [phone] ALT enzyme act/vol 21 U/L Invalid Interpretation Code 12-78 [employer] Work Phone: [phone] AST enzyme act/vol 21 U/L Invalid Interpretation Code 15-37 [employer] Work Phone: [phone] Bilirubin mass conc 0.30 mg/dL Invalid Interpretation Code 0.20-1.00 [employer] Work Phone: [phone] Bilirubin.direct mass conc 0.11 mg/dL Invalid Interpretation Code 0.00-0.30 [employer] Work Phone: [phone] Globulin Calculated mass conc (S) 3.8 g/dL High 2.3-3.5 [facility] Work Phone: [phone] Protein mass conc 7.4 g/dL Invalid Interpretation Code 6.4-8.2 [facility] Work Phone: [phone] Office Visit: [facility] 08-11-19 16 Tobacco smoking status NHIS Former smoker Invalid Interpretation Code [facility] Work Phone: [phone] Office Visit: [facility] 06-30-19 15 cardiac risk group C Invalid Interpretation Code [facility] Work Phone: [phone] General cardiovascular disease 10Y risk [#] [place].D'Agost howard N/A Invalid Interpretation Code [facility] Work Phone: [phone] Tobacco smoking status NHIS Never Invalid Interpretation Code [facility] Work Phone: [phone] [facility] An[facility] gap 4 molar conc 8 Normal 5-15 [facility] Work Phone: [phone] GFR/1.73 sq M predicted among non-blacks MDRD vol rate/area (S/P/Bld) 53 mL/min/{1.73_m2} Low >60 [facility] Work Phone: [phone] GFRAA 64 mL/min Normal >60 [facility] Work Phone: [phone] Lab Report: Ordered by Dr. Brandon romeo 05-29-2013 Erythrocyte distribution width Auto Ratio (RBC) 14.6 % Invalid Interpretation Code [facility] Work Phone: [phone] MCH Auto Entitic mass (RBC) 28.3 pg Invalid Interpretation Code [facility] Work Phone: [phone] MCHC Auto mass conc (RBC) 34.6 % Invalid Interpretation Code [facility] Work Phone: [phone] MCV Auto Entitic volume (RBC) 81.7 fL Invalid Interpretation Code [facility] Work Phone: [phone] Platelet mean volume Joaquín-Tessa Entitic volume (Bld) 9.8 fL Invalid Interpretation Code [facility] Work Phone: [phone] RBC Auto #/vol (Bld) 4.70 10*6/uL Invalid Interpretation Code [facility] Work Phone: [phone] Lab Report: PTon 07-23-2012 INR Coag RelTime (PPP) 1.1 {INR} Normal [facility] Work Phone: [phone] PTP 13.9 SECONDS Normal 11.9-14.4 [facility] Work Phone: [phone] Lab Report: PTTon 07-23-2012 aPTT Coag time (Bld) 37.1 s High 24.1-36.2 [facility] Work Phone: [phone] Clinical Lists Update: [facility] car [employer] 04-11-2012 Ferritin mass conc 16.2 ng/mL Low [facility] Work Phone: [phone] Iron binding capacity mass conc 419 ug/dL High [facility] Work Phone: [phone] Iron mass conc 22 ug/dL Low [facility] Work Phone: [phone] Transferrin saturation in Serum or Plasma 5 % Low [facility] Work Phone: [phone] Office Visiton 04-11-2012 T4 mass conc 9.3 ug/dL Invalid Interpretation Code [facility] Work Phone: [phone] Clinical Lists Update: [facility] car [facility] 10-05-2011 Cholesterol.total/ Cholesterol in HDL mass ratio 5.5 {ratio} High [facility] Work Phone: [phone] Vital Signs Date Time Vital Sign Value Performing Clinician Jocelin omalley 10-16-2023 14:19-0400 Body mass index (BMI) [Ratio] 16.65 kg/m2 Irene Wheatley APRN.DEVIN Work Phone: [facility] 10-16-2023 14:19040 Body weight 44 kg Irene Wheatley APRN.CELLOPHANE TESTER Work Phone: [facility] 10-16-2023 14:19-040 Diastolic blood pressure 70 mm[Hg] Irene Wheatley APRN.CELLOPHANE TESTER Work Phone: [facility] 10-16-2023 14:19-0400 Heart rate 70 /min Irene Dioni FRONT CLERK.CELLOPHANE TESTER Work Phone: [facility] 10-16-2023 14:19-0400 SaO2% (BldA) [Mass fraction] 96 % Irene Dioni FRONT CLERK.CELLOPHANE TESTER Work Phone: [facility] 10-16-2023 14:19-0400 Systolic blood pressure 130 mm[Hg] Irene Dioni FRONT CLERK.CELLOPHANE TESTER Work Phone: [facility] 05-01-2023 13:47-0500 Body temperature 96.3 [degF] Irene Dioni FRONT CLERK.CELLOPHANE TESTER Work Phone: [facility] 05-01-2023 13:47-0500 Body weight 44.63 kg Irene Dioni FRONT CLERK.CELLOPHANE TESTER Work Phone: [facility] 05-01-2023 13:47-0500 Diastolic blood pressure 70 mm[Hg] Irene Dioni FRONT CLERK.CELLOPHANE TESTER Work Phone: [facility] 05-01-2023 13:47-0500 Heart rate 53 /min Irene Dioni FRONT CLERK.CELLOPHANE TESTER Work Phone: [facility] 05-01-2023 13:47-0500 Respiratory rate 18 /min Irene Dioni FRONT CLERK.CELLOPHANE TESTER Work Phone: [facility] 05-01-2023 13:47-0500 SaO2% (BldA) [Mass fraction] 97 % Irene Dioni FRONT CLERK.CELLOPHANE TESTER Work Phone: [facility] 05-01-2023 13:47-0500 Systolic blood pressure 116 mm[Hg] Irene Dioni FRONT CLERK.CELLOPHANE TESTER Work Phone: [facility] 03-28-2023 13:32-0400 Body temperature 98.4 [degF] Jose Hyde MD Work Phone: [facility] 03-28-2023 13:32-0400 Body weight 46.27 kg Jose Hyde MD Work Phone: [facility] 03-28-2023 13:32-0400 Diastolic blood pressure 66 mm[Hg] Jose Hyde MD Work Phone: [facility] 03-28-2023 13:32-0400 Heart rate 52 /min Jose Hyde MD Work Phone: [facility] 03-28-2023 13:32-0400 Respiratory rate 18 /min Jose Hyde MD Work Phone: [facility] 03-28-2023 13:32-0400 SaO2% (BldA) [Mass fraction] 96 % Jose Hyde MD Work Phone: [facility] 03-28-2023 13:32-0400 Systolic blood pressure 116 mm[Hg] Jose Hyde MD Work Phone: [facility] 08-22-2022 15:14-0500 Body weight 51.26 kg Zhanna Tracy FRONT CLERK.CELLOPHANE TESTER Work Phone: [facility] 08-22-2022 15:14-0500 Diastolic blood pressure 68 mm[Hg] Zhanna Olga FRONT CLERK.CELLOPHANE TESTER Work Phone: [facility] 08-22-2022 15:14-0500 Heart rate 65 /min Zhanna Olga FRONT CLERK.CELLOPHANE TESTER Work Phone: [facility] 08-22-2022 15:14-0500 Respiratory rate 18 /min Zhanna Olga FRONT CLERK.CELLOPHANE TESTER Work Phone: [facility] 08-22-2022 15:14-0500 SaO2% (BldA) [Mass fraction] 97 % Zhanna Tracy FRONT CLERK.CELLOPHANE TESTER Work Phone: [facility] 08-22-2022 15:14-0500 Systolic blood pressure 118 mm[Hg] Zhanna Olga FRONT CLERK.CELLOPHANE TESTER Work Phone: [facility] 06-29-2022 17:36-0500 Body temperature 96.8 [degF] Jose Hyde MD Work Phone: [facility] 06-29-2022 17:36-0500 Body weight 52.16 kg Jose Hyde MD Work Phone: [facility] 06-29-2022 17:36-0500 Diastolic blood pressure 74 mm[Hg] Jose Hyde MD Work Phone: [facility] 06-29-2022 17:36-0500 Heart rate 65 /min Jose Hyde MD Work Phone: [facility] 06-29-2022 17:36-0500 Respiratory rate 18 /min Jose Hyde MD Work Phone: [facility] 06-29-2022 17:36-0500 SaO2% (BldA) [Mass fraction] 95 % Jose Hyde MD Work Phone: [facility] 06-29-2022 17:36-0500 Systolic blood pressure 128 mm[Hg] Jose Hyde MD Work Phone: [facility] 01-31-2022 15:14-0400 Body weight 56.25 kg Zhanna Tracy APRN.CELLOPHANE TESTER Work Phone: [facility] 01-31-2022 15:14-0400 Diastolic blood pressure 72 mm[Hg] Zhanna Tracy FRONT CLERK.CELLOPHANE TESTER Work Phone: [facility] 01-31-2022 15:14-0400 Heart rate 70 /min Zhanna Tracy APRN.CELLOPHANE TESTER Work Phone: [facility] 01-31-2022 15:14-0400 Systolic blood pressure 138 mm[Hg] Zhanna Tracy FRONT CLERK.CELLOPHANE TESTER Work Phone: [facility] 03-20-2017 08:04-0400 BMI (Body Mass Index) 23.17 kg/m2 [facility] Work Phone: 03-20-2017 08:04-0400 BP Diastolic 70 mm[Hg] [facility] Work Phone: 03-20-2017 08:04-0400 BP Systolic 130 mm[Hg] [facility] Work Phone: 03-20-2017 08:04-0400 Height 162.56 cm [facility] Work Phone: 03-20-2017 08:04-0400 Pulse (Heart Rate) 54 /min [facility] Work Phone: 03-20-2017 08:04-0400 Respiratory Rate 20 /min [facility] Work Phone: 03-20-2017 08:04-0400 Weight 61.24 kg [facility] Work Phone: 08-30-2016 14:38-0400 Heart rate 53 /min [facility] Work Phone: 02-29-2016 14:51-0400 BSA (Body Surface Area) 1.67 m2 [facility] Work Phone: 12-29-2014 11:35-0400 Pulse Oximetry 98 % [facility] Work Phone: 12-17-2012 09:50-0400 Heart rate 478 ms [facility] Work Phone: Encounters Encounter Date Encounter Type Care Provider Facility Start: 03-19-2024 End: 03-20-2024 Refill Jose Hyde MD Work Phone: [facility] Comment on above: Refill Request Start: 03-13-2024 End: 03-13-2024 Telephone encounter Jose Hyde MD Work Phone: [facility] Comment on above: Forms ([facility] HIP AA Compliant Physician Authorization form) Start: 01-18-2024 Refill Jose castaneda MD Work Phone: [facility] [place] Comment on above: Refill Request Start: 01-15-2024 Telephone encounter Jose ang MD Work Phone: [facility] [place] Comment on above: Forms Start: 01-10-2024 Telephone encounter Jose ang MD Work Phone: [facility] [place] Comment on above: DME Co requesting pt information Start: 12-20-2023 Refill Jose castaneda MD Work Phone: [facility] [place] Comment on above: Refill Request Start: 10-17-2023 Telephone encounter Irene palmer APRN.CELLOPHANE TESTER Work Phone: [facility] [place] Comment on above: Results Start: 10-16-2023 End: 10-16-2023 ambulatory JOSE HYDE Facility:[facility] Start: 10-16-2023 End: 10-16-2023 Patient encounter procedure Irene Wheatley FRONT CLERK.CELLOPHANE TESTER Work Phone: [facility] Comment on above: Chronic diastolic CH F (congestive heart failure) (HCC) (Primary Dx); Acquired hypothyroidism; Anxiety; Stress at home; Weight loss; Mixed hyperlipidemia; Iron deficiency anemia, unspecified iron deficiency anemia type; Vitamin D deficiency; Encounter for therapeutic drug monitoring Start: 10-12-2023 Refill Jose castaneda MD Work Phone: [facility] [place] Comment on above: Refill Request Start: 09-19-2023 Refill Jose castaneda MD Work Phone: [facility] Comment on above: Refill Request Start: 08-17-2023 Refill Jose castaneda MD Work Phone: [facility] Comment on above: Refill Request Start: 07-17-2023 End: 07-17-2023 ambulatory KARLA CHAMPION Facility:[facility] Start: 06-26-2023 End: 06-26-2023 ambulatory JOSE HYDE Facility:[facility] Start: 05-01-2023 Documentation procedure Mammog fco Coordinator [facility] Start: 05-01-2023 Letter encounter Mammography Coordinator [facility] Department Start: 05-01-2023 End: 05-01-2023 ambulatory JOSE HYDE Facility:[facility] Start: 05-01-2023 End: 05-01-2023 Patient encounter procedure Irene Wheatley FRONT CLERK.CELLOPHANE TESTER Work Phone: [facility] [place] Comment on above: Weight loss (Primary Dx); Anxiety; Stress at home Start: 04-28-2023 End: 04-28-2023 ambulatory JOSE HYDE Facility:[facility] Start: 04-28-2023 End: 04-28-2023 Subsequent hospital visit by physician Screen Mammo [facility] Comment on above: Encounter for screen ing mammogram for breast cancer [Z12.31] Start: 04-18-2023 Telephone encounter Jose ang MD Work Phone: [facility] [place] Comment on above: Mammogram Order Start: 03-28-2023 End: 03-28-2023 ambulatory JOSE HYDE Facility:[facility] Start: 03-28-2023 End: 03-28-2023 ambulatory JOSE HYDE Facility:[facility] Start: 03-28-2023 End: 03-28-2023 Office outpatient visit 40 minutes Jose Hyde MD Work Phone: [facility] [place] Comment on above: Essential hypertensi on (Primary Dx); Vitamin D deficiency; Elevated fasting glucose; Mixed hyperlipidemia; Acquired hypothyroidism; Bipolar affective disorder, remission status unspecified (HCC) Start: 01-25-2023 Refill Marleni AYALA Work Phone: [facility] [place] Comment on above: Refill Request Start: 12-22-2022 Telephone encounter Kee Coburn MD Work Phone: [facility] Comment on above[facility] Start: 10-11-2022 Telephone encounter Zhanna Tracy APRN.CELLOPHANE TESTER Work Phone: Cardiology Comment on above: Results Start: 10-10-2022 End: 10-10-2022 Nursing evaluation of patient and report Nurse Card Admin [facility] Work Phone: Cardiology Comment on above: Screening for ischem ic heart disease (Primary Dx) Start: 09-19-2022 Refill Jose castaneda MD Work Phone: [facility] [place] Comment on above: Refill Request Start: 08-25-2022 Refill Jose castaneda MD Work Phone: [facility] Comment on above: Refill Request Start: 08-22-2022 End: 08-22-2022 Patient encounter procedure Zhanna Tracy APRN.CELLOPHANE TESTER Work Phone: Cardiology Comment on above: 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) (Primary Dx); Coronary artery disease involving picayune coronary artery of picayune heart without angina pectoris; Mixed hyperlipidemia; Essential hypertension; Chronic diastolic CHF (congestive heart failure) (HCC); PAD (peripheral artery disease) (HCC); Tobacco use Start: 07-26-2022 Refill Jose castaneda MD Work Phone: [facility] [place] Comment on above: Insurance Authorizat ion Start: 06-29-2022 End: 06-29-2022 Office outpatient visit 25 minutes Jose Hyde MD Work Phone: [facility] Comment on above: Coronary artery dise ase involving picayune coronary artery of picayune heart without angina pectoris; Recurrent cold sores; Loose stools; Diarrhea; IRRITABLE COLON Start: 05-20-2022 Refill Jose castaneda MD Work Phone: [facility] Comment on above: Refill Request Start: 04-14-2022 Documentation procedure Mammog fco Coordinator [facility] Start: 04-14-2022 Letter encounter Mammography Coordinator [facility] Department Start: 03-30-2022 ambulatory Jose castaneda MD Work Phone: [facility] [place] Start: 02-15-2022 Refill Jose castaneda MD Work Phone: [facility] [place] Comment on above: Refill Request Start: 01-31-2022 End: 01-31-2022 Patient encounter procedure Zhanna Tracy APRN.CELLOPHANE TESTER Work Phone: Cardiology Comment on above: Coronary artery dise ase involving picayune coronary artery of picayune heart without angina pectoris (Primary Dx); Mixed hyperlipidemia; Essential hypertension; Chronic diastolic CHF (congestive heart failure) (HCC); Mitral valve insufficiency, unspecified etiology; Tobacco use Start: 11-19-2021 Refill Jose castaneda MD Work Phone: Internal Medicine [place] Comment on above: Prescription Refills Start: 11-01-2021 Telephone encounter Marshall Plascencia MD Work Phone: General Surgery Comment on above: Patient Update (refe rral to Dr Scott) Start: 10-16-2021 ambulatory Marshall marino MD Work Phone: General Surgery Comment on above: Question for DR. David del toro Start: 10-11-2021 End: 10-11-2021 Subsequent hospital visit by physician Ct Prep [facility] Wstr Cat Scan Comment on above: Abdominal mass, unsp ecified abdominal location [R19.00] Start: 09-24-2021 Refill Jose castaneda MD Work Phone: Internal Medicine [place] Comment on above: Refill Request Start: 09-09-2021 Telephone encounter Isabela Dupree APRN.CELLOPHANE TESTER Work Phone: [facility] Cardiology [place] Comment on above: Results Start: 11-23-2017 Ambulatory [facility] (VANES[facility] Procedures Date Procedure Procedure Detail Performing Clinician Start: 10-16-2023 Adult depression screening assessment Jose Hyde MD Work Phone: Start: 07-17-2023 Lipid 1996 panel - Serum or Plasma Jose Hyde MD Work Phone: Start: 07-26-2022 Lipid 1996 panel - Serum or Plasma Jose Hyde MD Work Phone: Start: 04-13-2022 Mammography Mammography Coordinator Start: 10-11-2021 Ct abdomen & pelvis w/o contrast material Marshall Plascencia MD Work Phone: Start: 02-26-2021 Mammography Isabela Dupree APRN.CELLOPHANE TESTER Work Phone: Start: 12-17-2020 Adult depression screening assessment Isabela Dupree APRN.CELLOPHANE TESTER Work Phone: Start: 03-19-2020 Colonoscopy Isablea Dupree APRN.CELLOPHANE TESTER Work Phone: Start: 03-20-2017 End: 03-20-2017 Follow Up Appt 6 months John Santiago GUEST SERVICES COORDINATOR Work Phone: Start: 03-20-2017 End: 03-20-2017 PFM John Santiago GUEST SERVICES COORDINATOR Work Phone: Start: 08-30-2016 End: 08-30-2016 Ecg routine ecg w/least 12 lds w/i&r Penelope Koenig PA-C Work Phone: Start: 08-30-2016 End: 08-30-2016 Follow Up Appt 6 months Penelope tony PA-C Work Phone: Start: 08-30-2016 End: 08-30-2016 PFM Penelope Koenig PA-C Work Phone: Start: 02-29-2016 End: 02-29-2016 Follow Up Appt 6 months Sergio White MD Start: 02-29-2016 End: 08-25-2016 Follow Up Appt Other Sergio White MD Start: 02-29-2016 End: 02-29-2016 MMM Sergio White MD Start: 08-11-2015 End: 08-20-2015 *Hepatic Function Panel Penelope tony PA-C Work Phone: Start: 08-11-2015 End: 08-21-2015 Arterial exam Penelope Koenig PA-C Work Phone: Start: 08-11-2015 End: 08-11-2015 Follow Up Appt 6 months Penelope tony PA-C Work Phone: Start: 08-11-2015 End: 08-20-2015 Lipid 1996 panel - Serum or Plasma Penelope Koenig PA-C Work Phone: Start: 08-11-2015 End: 08-11-2015 PFM Penelope Koenig PA-C Work Phone: Start: 07-01-2015 End: 08-20-2015 *Hepatic Function Panel Sergio White MD Start: 07-01-2015 End: 08-20-2015 Lipid 1996 panel - Serum or Plasma Sergio White MD Start: 12-29-2014 End: 12-29-2014 *Hepatic Function Panel Sergio White MD Start: 12-29-2014 End: 12-30-2014 Documentation of current medications Sergio White MD Start: 12-29-2014 End: 12-29-2014 Follow Up Appt 6 months Sergio White MD Start: 12-29-2014 End: 12-29-2014 Lipid 1996 panel - Serum or Plasma Sergio White MD Start: 12-29-2014 End: 12-29-2014 MMM Sergio White MD Start: 06-30-2014 End: 08-25-2016 Follow Up Appt 6 months Penelope tony PA-C Work Phone: Start: 06-30-2014 End: 08-25-2016 Follow Up Appt Other Penelope silveira PA-C Work Phone: Start: 06-30-2014 End: 08-25-2016 PFM Penelope Koenig PA-C Work Phone: Start: 01-01-2014 End: 01-16-2014 *BMP Sergio White MD Start: 01-01-2014 End: 01-01-2014 Follow Up Appt 6 months Sergio White MD Start: 01-01-2014 End: 08-25-2016 Follow Up Appt Other Sergio White MD Start: 01-01-2014 End: 01-01-2014 MMAntwon White MD Start: 07-18-2013 End: 07-18-2013 Follow Up Appt Other Penelope silveira PA-C Work Phone: Start: 03-29-2013 End: 07-04-2013 Arterial exam Penelope Koenig PA-C Work Phone: Start: 03-29-2013 End: 03-29-2013 Follow Up Appt 3 months Penelope tony PA-C Work Phone: Start: 03-29-2013 End: 03-29-2013 Follow Up Appt 6 months Penelope tony PA-C Work Phone: Start: 03-29-2013 End: 03-29-2013 MMM Penelope Koenig PA-C Work Phone: Start: 03-29-2013 End: 03-29-2013 PFM Penelope Koenig PA-C Work Phone: Start: 12-17-2012 End: 03-13-2013 Ecg routine ecg w/least 12 lds w/i&r Sergio White MD Start: 12-17-2012 End: 12-17-2012 Follow Up Appt 3 months Sergio White MD Start: 12-17-2012 End: 12-17-2012 NEWTON White MD Start: 12-17-2012 End: 12-17-2012 Nuclear stress test -exercise Sergio White MD Start: 10-19-2012 End: 10-19-2012 Follow Up Appt Other Penelope silveira PA-C Work Phone: Start: 10-19-2012 End: 10-19-2012 PFM Penelope Koenig PA-C Work Phone: Start: 08-31-2012 End: 11-23-2012 Cardiac Rehab Sergio White MD Start: 08-31-2012 End: 10-19-2012 Cardiovascular stress test using treadmill Sergio White MD Start: 08-31-2012 End: 08-31-2012 Ecg routine ecg w/least 12 lds w/i&r Sergio White MD Start: 08-31-2012 End: 09-27-2012 Follow Up Appt 3 months Sergio White MD Start: 08-31-2012 End: 09-27-2012 Follow Up Appt 6 weeks Sergio White MD Start: 08-31-2012 End: 09-27-2012 MMM Sergio White MD Start: 08-31-2012 End: 09-27-2012 PFM Sergio White MD Start: 08-16-2012 End: 09-27-2012 Arterial exam Sergio White MD Start: 08-08-2012 Percutaneous transluminal coronary angioplasty CORONARY ARTERY DISEASE, S/P PTCA Rohan Celeste Start: 07-23-2012 End: 07-23-2012 Nurse Teaching (no charge) eSrgio worthy MD Start: 07-12-2012 End: 07-12-2012 Ecg routine ecg w/least 12 lds w/i&r Sergio White MD Start: 07-12-2012 End: 07-12-2012 Follow Up Appt 3 months Sergio White MD Start: 07-12-2012 End: 07-12-2012 Follow Up Appt Other Sergio White MD Start: 07-12-2012 End: 07-12-2012 PFM Sergio White MD Start: 04-12-2012 End: 07-25-2012 *BMP Sergio White MD Start: 04-12-2012 End: 07-25-2012 *CBC with Differential Sergio White MD Start: 04-12-2012 End: 07-25-2012 aPTT in Platelet poor plasma by Coagulation assay Sergio White MD Start: 04-12-2012 End: 07-18-2012 Chest x-ray Sergio White MD Start: 04-12-2012 End: 04-12-2012 Ecg routine ecg w/least 12 lds w/i&r Sergio White MD Start: 04-12-2012 End: 07-18-2012 Echocardiography Sergio White MD Start: 04-12-2012 End: 04-12-2012 Follow Up Appt 3 months Sergio White MD Start: 04-12-2012 End: 07-25-2012 INR in Platelet poor plasma by Coagulation assay Sregio White MD Start: 04-12-2012 End: 09-27-2012 Left Heart Cath Sergio White MD Start: 04-11-2012 Percutaneous transluminal coronary angioplasty PERCUTANEOUS TRANSLUMINAL CORONARY ANGIOPLASTY, HX OF Rohan Celeste Plan of Treatment Date Care Activity Detail Author Start: 07-17-2028 Lipid panel Lipid Screening [facility] Start: 07-26-2027 Lipid 1996 panel - S shlomo or Plasma Lipid Screening [facility] Start: 07-26-2027 LIPID SCREEN LIPID SCREEN [facility] Start: 01-31-2027 LIPID SCREEN LIPID SCREEN [facility] Start: 10-15-2026 Diabetes Screening Diabetes Screenin [facility] Start: 07-17-2026 Diabetes Screening Diabetes Screenin g [facility] Start: 05-28-2026 LIPID SCREEN LIPID SCREEN [facility] Start: 03-28-2026 Diabetes Screening Diabetes Screenin g [facility] Start: 07-26-2025 DIABETES SCREEN DIABETES SCREEN [facility] Start: 03-19-2025 Colonoscopy COLONOSCOPY [facility] Start: 03-19-2025 COLORECTAL CANCER SCREENING COLORECTAL CANCER SCREENING [facility] Start: 03-19-2025 Screening for malign ant neoplasm of colon [facility] Start: 01-31-2025 DIABETES SCREEN DIABETES SCREEN [facility] Start: 10-15-2024 Annual PCP Team Bleach Machine Operator marilee Disease Visit Annual PCP Team Chronic Disease Visit [facility] Start: 10-15-2024 Anxiety Screening Anxiety Screening [facility] Start: 10-15-2024 Depression Screening Depression Scre ening [facility] Start: 07-17-2024 BP Controlled (<130/80) BP Controlle d (<130/80) [facility] Start: 07-17-2024 Hepatitis B surface antibody level LDL Cholesterol [facility] Start: 06-26-2024 Annual PCP Team Bleach Machine Operator marilee Disease Visit Annual PCP Team Chronic Disease Visit [facility] Start: 05-28-2024 DIABETES SCREEN DIABETES SCREEN [facility] Start: 05-01-2024 Annual PCP Team Bleach Machine Operator marilee Disease Visit Annual PCP Team Chronic Disease Visit [facility] Start: 05-01-2024 BP Controlled (<130/80) BP Controlle d (<130/80) [facility] Start: 04-28-2024 Mammography Mammogram Screening [facility] Start: 04-28-2024 Screening for malign ant neoplasm of breast Mammogram Screening [facility] Start: 04-16-2024 End: 04-16-2024 Patient encounter procedure 04/16/2024 2:00 PM EDT Office Visit Internal Medicine [address] [phone] Irene Wheatley APRN.CELLOPHANE TESTER [address] [place] [address] 6 month follow up Internal Medicine [place] Comment on above: 6 month follow up Start: 03-28-2024 Annual PCP Team Bleach Machine Operator marilee Disease Visit Annual PCP Team Chronic Disease Visit [facility] Start: 03-28-2024 BP Controlled (<130/80) BP Controlle d (<130/80) [facility] Start: 03-28-2024 Covid-19 Vaccine () Covid-19 Vaccine () [facility] Comment on above: Postponed from 02/17 (Declined at this time) Start: 02-18-2024 Covid-19 Vaccine () Covid-19 Vaccine () [facility] Start: 02-18-2024 Influenza vaccination Influenza Vacc ine (#1) [facility] Start: 10-16-2023 End: 10-16-2023 Patient encounter procedure 10/16/2023 2:40 PM EDT Office Visit Internal Medicine [place] [address] [place], [place] [id number] Irene Wheatley APRN.CELLOPHANE TESTER [address] [place], [place] [id number] Follow Up 6 mo Internal Medicine [place] Comment on above: Follow Up 6 mo Start: 10-16-2023 End: 01-15-2024 25-hydroxyvitamin D3 [Mass/volume] in Serum or Plasma [facility] Comment on above: Expected: 10/16/2023 , Expires: 01/15/2024 Start: 10-16-2023 End: 01-15-2024 Comprehensive metabolic 2000 panel - Serum or Plasma [facility] Work Phone: Comment on above: Expected: 10/16/2023 , Expires: 01/15/2024 Start: 10-16-2023 End: 01-15-2024 Ferritin [Mass/volume] in Serum or Plasma [facility] Comment on above: Expected: 10/16/2023 , Expires: 01/15/2024 Start: 10-16-2023 End: 01-15-2024 Iron and Iron binding capacity panel - Serum or Plasma [facility] Comment on above: Expected: 10/16/2023 , Expires: 01/15/2024 Start: 10-16-2023 End: 01-15-2024 Thyrotropin [Units/volume] in Serum or Plasma [facility] Comment on above: Expected: 10/16/2023 , Expires: 01/15/2024 Start: 10-16-2023 End: 01-15-2024 Thyroxine (T4) free [Mass/volume] in Serum or Plasma [facility] Comment on above: Expected: 10/16/2023 , Expires: 01/15/2024 Start: 10-16-2023 End: 01-15-2024 Triiodothyronine (T3) Free [Mass/volume] in Serum or Plasma [facility] Comment on above: Expected: 10/16/2023 , Expires: 01/15/2024 Start: 08-23-2023 BP CONTROLLED (<130/80) BP CONTROLLE D (<130/80) [facility] Start: 07-26-2023 Hepatitis B surface antibody level LDL CHOLESTEROL [facility] Start: 06-29-2023 ANNUAL PCP TEAM HOSPITAL MANAGER MARILEE DISEASE VISIT ANNUAL PCP TEAM CHRONIC DISEASE VISIT [facility] Start: 06-29-2023 BP CONTROLLED (<130/80) BP CONTROLLE D (<130/80) [facility] Start: 06-29-2023 COVID-19 VACCINE (4 - Booster for Moderna series) COVID-19 VACCINE (4 - Booster for Moderna series) [facility] Comment on above: Postponed from 08/27 (Declined at this time) Start: 06-29-2023 COVID-19 VACCINE (4 - Moderna series) COVID-19 VACCINE (4 - Moderna series) [facility] Comment on above: Postponed from 08/27 (Declined at this time) Start: 06-29-2023 Urine microalbumin profile [facility] Comment on above: Postponed from 11/14 (Declined at this time) Start: 06-19-2023 Advance Directive Discussion Advance Directive Discussion [facility] Start: 06-19-2023 Behavioral Health Screening Behavioral Health Screening [facility] Start: 06-19-2023 Depression Assessment Depression Ass essment [facility] Start: 04-13-2023 Mammography [facility] Start: 02-17-2023 Influenza vaccination INFLUENZA (#1) [facility] Start: 01-31-2023 Hepatitis B surface antibody level LDL CHOLESTEROL [facility] Start: 12-06-2022 ANNUAL PCP TEAM HOSPITAL MANAGER MARILEE DISEASE VISIT ANNUAL PCP TEAM CHRONIC DISEASE VISIT [facility] Start: 05-28-2022 Hepatitis B surface antibody level LDL CHOLESTEROL [facility] Start: 05-05-2022 ANNUAL PCP TEAM HOSPITAL MANAGER MARILEE DISEASE VISIT ANNUAL PCP TEAM CHRONIC DISEASE VISIT [facility] Start: 02-26-2022 Mammography MAMMOGRAM [facility] Start: 02-17-2022 Influenza vaccination INFLUENZA (#1) [facility] Start: 12-17-2021 Adult depression scr eening assessment DEPRESSION SCREENING [facility] Start: 12-17-2021 BP CONTROLLED (<130/80) BP CONTROLLE D (<130/80) [facility] Start: 11-14-2021 Urine microalbumin profile [facility] Start: 10-30-2021 COVID-19 VACCINE (4 - Booster for Moderna series) COVID-19 VACCINE (4 - Booster for Moderna series) [facility] Start: 08-27-2021 COVID-19 VACCINE (4 - Booster for Moderna series) COVID-19 VACCINE (4 - Booster for Moderna series) [facility] Start: 06-19-2021 ADVANCE DIRECTIVE DISCUSSION ADVANCE DIRECTIVE DISCUSSION [facility] Start: 06-19-2021 DEPRESSION ASSESSMENT DEPRESSION ASS ESSMENT [facility] Start: 11-27-2017 End: 11-27-2017 Appointment Appointment [facility] Work Phone: Start: 03-20-2017 End: 03-20-2017 24 hour holter monitor 24 hour holter monitor [facility] Work Phone: Start: 03-20-2017 End: 03-20-2017 Echocardiography Echocardiogram (complete) [facility] Work Phone: Start: 03-20-2017 End: 03-20-2017 Follow Up Appt 6 months Follow Up Appt 6 months [employer] Work Phone: Start: 03-20-2017 End: 03-20-2017 PFM PFM [facility] Work Phone: Start: 03-20-2017 End: 03-20-2017 Appointment Appointment [facility] Work Phone: Start: 08-30-2016 End: 08-30-2016 Ecg routine ecg w/least 12 lds w/i&r EKG (In office) [facility] Work Phone: Start: 08-30-2016 End: 08-30-2016 Follow Up Appt 6 months Follow Up Appt 6 months [facility] [employer] [facility] [employer] Work Phone: Start: 08-30-2016 End: 08-30-2016 PFM PFM [place] [facility] Work Phone: Start: 02-29-2016 End: 02-29-2016 Follow Up Appt 6 months Follow Up Appt 6 months [facility] Work Phone: Start: 02-29-2016 End: 08-25-2016 Follow Up Appt Other Follow Up Appt Other [facility] Work Phone: Start: 02-29-2016 End: 02-29-2016 MMM MMM [facility] Work Phone: Start: 02-22-2016 End: 08-20-2015 *Hepatic Function Panel *Hepatic Function Panel [place] [facility] Work Phone: Start: 02-22-2016 End: 08-20-2015 Lipid 1996 panel *Lipid Profile CC PCP [place] [facility] Work Phone: Start: 08-11-2015 End: 08-20-2015 *Hepatic Function Panel *Hepatic Function Panel [place] [facility] Work Phone: Start: 08-11-2015 End: 08-11-2015 Arterial exam Arterial exam [facility] Work Phone: Start: 08-11-2015 End: 08-11-2015 Follow Up Appt 6 months Follow Up Appt 6 months [facility] Work Phone: Start: 08-11-2015 End: 08-20-2015 Lipid 1996 panel *Lipid Profile CC PCP [facility] Work Phone: Start: 08-11-2015 End: 08-11-2015 PFM PFM [place] [facility] Work Phone: Start: 07-01-2015 End: 08-20-2015 *Hepatic Function Panel *Hepatic Function Panel [place] [facility] Work Phone: Start: 07-01-2015 End: 08-20-2015 Lipid 1996 panel *Lipid Profile CC PCP [place] [facility] Work Phone: Start: 12-29-2014 End: 12-29-2014 *Hepatic Function Panel *Hepatic Function Panel [place] [facility] Work Phone: Start: 12-29-2014 End: 12-29-2014 Follow Up Appt 6 months Follow Up Appt 6 months [place] [facility] Work Phone: Start: 12-29-2014 End: 12-29-2014 Lipid 1996 panel *Lipid Profile CC PCP [place] [facility] Work Phone: Start: 12-29-2014 End: 12-29-2014 MMM MMM [facility] Work Phone: Start: 06-30-2014 End: 08-25-2016 Follow Up Appt 6 months Follow Up Appt 6 months [facility] Work Phone: Start: 06-30-2014 End: 08-25-2016 Follow Up Appt Other Follow Up Appt Other [facility] Work Phone: Start: 06-30-2014 End: 08-25-2016 PFM PFM [facility] Work Phone: Start: 01-01-2014 End: 01-16-2014 *BMP *BMP [place] [facility] Work Phone: Start: 01-01-2014 End: 01-01-2014 Follow Up Appt 6 months Follow Up Appt 6 months [place] [facility] Work Phone: Start: 01-01-2014 End: 08-25-2016 Follow Up Appt Other Follow Up Appt Other [place] [facility] Work Phone: Start: 01-01-2014 End: 01-01-2014 MMM MMM [facility] Work Phone: Start: 07-18-2013 End: 07-18-2013 Follow Up Appt Other Follow Up Appt Other [facility] Work Phone: Start: 03-29-2013 End: 03-29-2013 Arterial exam Arterial exam [facility] Work Phone: Start: 03-29-2013 End: 03-29-2013 Follow Up Appt 3 months Follow Up Appt 3 months [place] [facility] Work Phone: Start: 03-29-2013 End: 03-29-2013 Follow Up Appt 6 months Follow Up Appt 6 months [place] [facility] Work Phone: Start: 03-29-2013 End: 03-29-2013 MMM MMM [facility] Work Phone: Start: 03-29-2013 End: 03-29-2013 PFM PFM [place] [facility] Work Phone: Start: 12-17-2012 End: 03-13-2013 Ecg routine ecg w/least 12 lds w/i&r EKG (In office) [facility] Work Phone: Start: 12-17-2012 End: 12-17-2012 Follow Up Appt 3 months Follow Up Appt 3 months [facility] Work Phone: Start: 12-17-2012 End: 12-17-2012 MMM MMM [facility] Work Phone: Start: 12-17-2012 End: 12-17-2012 Nuclear stress test -exercise Nuclear stress test -exercise [facility] Work Phone: Start: 10-19-2012 End: 10-19-2012 Follow Up Appt Other Follow Up Appt Other [place] [facility] Work Phone: Start: 10-19-2012 End: 10-19-2012 PFM PFM [place] [facility] Work Phone: Start: 08-31-2012 End: 09-27-2012 Cardiac Rehab Cardiac Rehab [facility] Work Phone: Start: 08-31-2012 End: 09-07-2012 Cardiovascular stress test using treadmill Treadmill stress test (no imaging) [facility] Work Phone: Start: 08-31-2012 End: 08-31-2012 Ecg routine ecg w/least 12 lds w/i&r EKG (In office) [facility] Work Phone: Start: 08-31-2012 End: 09-27-2012 Follow Up Appt 3 months Follow Up Appt 3 months [place] [facility] Work Phone: Start: 08-31-2012 End: 09-27-2012 Follow Up Appt 6 weeks Follow Up Appt 6 weeks [facility] Work Phone: Start: 08-31-2012 End: 09-27-2012 MMM MMM [facility] Work Phone: Start: 08-31-2012 End: 09-27-2012 PFM PFM [facility] Work Phone: Start: 08-16-2012 End: 08-16-2012 Arterial exam Arterial exam [facility] Work Phone: Start: 07-12-2012 End: 07-12-2012 Ecg routine ecg w/least 12 lds w/i&r EKG (In office) [facility] Work Phone: Start: 07-12-2012 End: 07-12-2012 Follow Up Appt 3 months Follow Up Appt 3 months [facility] Work Phone: Start: 07-12-2012 End: 07-12-2012 Follow Up Appt Other Follow Up Appt Other [facility] Work Phone: Start: 07-12-2012 End: 07-12-2012 PFM PFM [facility] Work Phone: Start: 04-12-2012 End: 07-25-2012 *BMP *BMP [facility] Work Phone: Start: 04-12-2012 End: 07-25-2012 *CBC with Differential *CBC with Differential [facility] Work Phone: Start: 04-12-2012 End: 07-25-2012 aPTT Coag time (Bld) *PTT-Partial Thromboplastin Time [facility] Work Phone: Start: 04-12-2012 End: 07-18-2012 Chest x-ray X-Ray, Chest, PA & Lateral [facility] Work Phone: Start: 04-12-2012 End: 04-12-2012 Ecg routine ecg w/least 12 lds w/i&r EKG (In office) [facility] Work Phone: Start: 04-12-2012 End: 04-12-2012 Echocardiography Echocardiogram (complete) [facility] Work Phone: Start: 04-12-2012 End: 04-12-2012 Follow Up Appt 3 months Follow Up Appt 3 months [facility] Work Phone: Start: 04-12-2012 End: 07-25-2012 INR Coag RelTime (PPP) *PT/INR [facility] Work Phone: Start: 04-12-2012 End: 04-13-2012 Left Heart Cath Left Heart Cath [facility] Work Phone: Start: 2009 RSV Vaccine (1 - 1-d ose 60+ series) RSV Vaccine (1 - 1-dose 60+ series) [facility] Start: 1994 COLOGUARD (FIT-DNA) COLOGUARD (FIT-D NA) [facility] Start: [address] COLONOGRAPHY [facility] Start: 1994 FECAL OCCULT BLOOD FECAL OCCULT BLOO D [facility] Start: 1994 Screening for malign ant neoplasm of colon [facility] Start: 1994 SIGMOIDOSCOPY SIGMOIDOSCOPY [facility] Ct abdomen & pelvis w/o contrast material CT ABD/PEL WO IVCON Radiology Routine Abdominal mass, unspecified abdominal location 10/11/2021 10:54 AM EDT [facility] Work Phone: End: 08-19-2023 ECG COMPLETE ECG COMPLETE ECG Routine Coronary artery disease involving picayune coronary artery of picayune heart without angina pectoris Mixed hyperlipidemia Essential hypertension 1 Occurrences starting 08/18/2022 until 08/19/2023 [facility] Work Phone: Comment on above: 1 Occurrences starti ng 08/18/2022 until 08/19/2023 End: 05-17-2024 JG SCREENING JG SCREENING Radiology Routine Encounter for screening mammogram for breast cancer 1 Occurrences starting 04/19/2023 until 05/17/2024 [facility] Work Phone: Comment on above: 1 Occurrences starti ng 04/19/2023 until 05/17/2024 JG SCREENING JG SCREENING Ra diology Routine Encounter for screening mammogram for breast cancer 04/28/2023 1:31 PM EST [facility] Work Phone: End: 09-21-2023 NM CARDIAC PERF STRESS/PHARM NM CARDIAC PERF STRESS/PHARM Radiology Routine 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 (HCC) 1 Occurrences starting 08/22/2022 until 09/21/2023 [facility] [facility] Work Phone: Comment on above: 1 Occurrences starti ng 08/22/2022 until 09/21/2023 Patient Education HYPERLIPIDEMIA , HYPERTENSION [facility] Work Phone: End: 04-29-2023 Screening mammography bi 2-view breast inc cad JG SCREENING Radiology Routine Encounter for screening mammogram for breast cancer 1 Occurrences starting 03/30/2022 until 04/29/2023 [facility] Work Phone: Comment on above: 1 Occurrences starti ng 03/30/2022 until 04/29/2023 [facility] Immunizations Immunization Date Immunization Notes Care Provider Kosta jaimes 03-23-2023 influenza (HD-IIV4) vaccine, age 65+ yr, high dose, quadrivalent, PF (FLUZONE HIGH-DOSE) Irene Wheatley APRN.CNP Work Phone: [facility] 03-23-2023 influenza virus vacc ine, unspecified formulation Jose Hyde MD Work Phone: [facility] 03-22-2023 influenza, high dose seasonal, preservative-free Jose Hyde MD Work Phone: [facility] 04-13-2022 influenza, high-dose , quadrivalent vaccine (FLUZONE HIGH DOSE QUADRIVALENT) Jose Hyde MD Work Phone: [facility] 03-03-2021 influenza, high-dose , quadrivalent vaccine (FLUZONE HIGH DOSE QUADRIVALENT) Isabela Dupree APRN.CELLOPHANE TESTER Work Phone: [facility] Work Phone: 10-16-2020 COVID-19 vaccine, fu ll dose (MODERNA) Isabela Leia FRONT CLERK.CELLOPHANE TESTER Work Phone: [facility] 09-18-2020 COVID-19 vaccine, fu ll dose (MODERNA) Isabela Dupree FRONT CLERK.CELLOPHANE TESTER Work Phone: [facility] 03-25-2020 influenza, high-dose , quadrivalent vaccine (FLUZONE HIGH DOSE QUADRIVALENT) Isabela Dupree FRONT CLERK.CELLOPHANE TESTER Work Phone: [facility] 03-21-2019 influenza, high dose seasonal, preservative-free Isabela Inejamila FRONT CLERK.CELLOPHANE TESTER Work Phone: [facility] Work Phone: 12-27-2018 zoster vaccine recombinant Isabela Ineman FRONT CLERK.CELLOPHANE TESTER Work Phone: [facility] Work Phone: 10-09-2018 zoster vaccine recombinant Isabela Ineman FRONT CLERK.CELLOPHANE TESTER Work Phone: [facility] Work Phone: 03-08-2018 influenza, high dose seasonal, preservative-free Isabela Inejamila FRONT CLERK.CELLOPHANE TESTER Work Phone: [facility] Work Phone: 03-06-2017 influenza, high dose seasonal, preservative-free Isabela Ineman FRONT CLERK.CELLOPHANE TESTER Work Phone: [facility] 08-31-2016 pneumococcal polysaccharide vaccine, 23 valent Isabela Dupree FRONT CLERK.CELLOPHANE TESTER Work Phone: [facility] 03-10-2016 influenza, high dose seasonal, preservative-free Isabela Inejamila FRONT CLERK.CELLOPHANE TESTER Work Phone: [facility] 05-19-2015 pneumococcal conjuga te vaccine, 13 valent Isabela Dupree FRONT CLERK.CELLOPHANE TESTER Work Phone: [facility] Work Phone: 04-17-2015 influenza, high dose seasonal, preservative-free Isabela Dupree FRONT CLERK.CELLOPHANE TESTER Work Phone: [facility] 03-31-2014 influenza, seasonal, injectable Isabela Dupree FRONT CLERK.CELLOPHANE TESTER Work Phone: [facility] 03-20-2013 influenza virus vacc ine, unspecified formulation Isabela Dupree FRONT CLERK.CELLOPHANE TESTER Work Phone: [facility] 03-10-2012 influenza virus vacc ine, unspecified formulation Isabela Dupree FRONT CLERK.CELLOPHANE TESTER Work Phone: [facility] Work Phone: 11-15-2011 tetanus toxoid, redu kelly diphtheria toxoid, and acellular pertussis vaccine, adsorbed Isabela Dupree FRONT CLERK.CELLOPHANE TESTER Work Phone: [facility] 03-23-2011 influenza virus vacc ine, unspecified formulation Isabela Dupree FRONT CLERK.CELLOPHANE TESTER Work Phone: [facility] 03-23-2011 pneumococcal polysaccharide vaccine, 23 valent Isabela Dupree FRONT CLERK.CELLOPHANE TESTER Work Phone: [facility] 04-09-2010 influenza virus vacc ine, unspecified formulation Isabela Dupree FRONT CLERK.CELLOPHANE TESTER Work Phone: [facility] Work Phone: 06-01-2009 novel influenza-H1N1 -09, all formulations Isabela Dupree FRONT CLERK.CELLOPHANE TESTER Work Phone: [facility] Work Phone: 04-09-2009 influenza virus vacc ine, unspecified formulation Isabela Dupree FRONT CLERK.CELLOPHANE TESTER Work Phone: [facility] Work Phone: Payers Date Payer Category Payer Unknown [id number] 2017 Unknown [employer]IC[employer] SUPPLEMENT [id number] 2017-Present [phone] [id number] [place] [address] Indemnity [id number] 2017 Unknown [id number] 2006 Medicare MEDICARE MEDICAR E A AND B [id number] 2006-Present [phone] [place] [address] Medicare [id number] 2006 Medicare MEDICARE MEDICAR E A AND B [id number] 2006-Present [phone] [place] [address] Medicare [id number] 2006 Medicare [id number] Social History Date Type Detail Facility Start: 12-28-2010 [facility] End: 06-19-2002 History of tobacco use Current smoker [facility] Start: 06-19-1972 End: 06-19-2002 History of tobacco use Cigarette Smoker [facility] Start: 12-28-2010 End: 03-28-2023 Cigarettes smoked current (pack per day) - Reported 0.5 [facility] Work Phone: Start: 12-28-2010 End: 03-28-2023 Tobacco use and exposure Smokeless tobacco non-user [facility] Start: 08-09-2021 End: 10-16-2023 Alcohol intake Current drinker of alcohol (finding) [facility] Start: 1950 [facility] Assigned At [facility] Start: 09-13-2021 End: 04-13-2022 Exposure to SARS-CoV-2 (event) Not sure [facility] Start: 1950 [facility] Start: 06-19-1972 End: 03-28-2023 Tobacco smoking status NHIS Occasional tobacco smoker [facility] Start: 08-22-2022 End: 03-28-2023 Tobacco use panel [facility] Work Phone: Adult Depression Screening Assessment 2 [facility] Work Phone: Start: 10-26-2021 Gender identity Identifies as female gender (finding) [facility] Start: 10-26-2021 Sexual orientation Heterosexual (fin sandy) [facility] Start: 03-28-2023 Tobacco Comment Stressors noted [facility] Medical Equipment Procedure Code Equipment Code Equipment Origin al Text Equipment Identifier Dates Graft Infuse 20g a Medium Bovine Collagen Rhbmp-2 2x1in Bone Vial Absorbable - [id number] Start: 09-09-2016 Cage - [id number] Start: 09-09-2016 Comment on above: Description: L2-3, L 3-4 Rods [id number] Start: 09-13-2016 5.5 Screw [id number] Start: 09-13-2016 6.5 Screws [id number] Start: 09-13-2016 6.5mm Screws [id number] Start: 09-13-2016 7.5mm Scrrews [id number] Start: 09-13-2016 Blockers [id number] Start: 09-13-2016 6.5 Cannulated [id number] Start: 09-13-2016 6.5 Cannulated [id number] Start: 09-13-2016 Goals Date Patient Goal Desired Activity /State Personal health goal Personal health goal Clinical Notes 06-24-2015 to 03-19-2024 Telephone Encounter - Analy Lawler RN - 03/19/2024 4:45 PM EDTTelephone Encounter - Analy Lawler RN - 03/19/2024 4:45 PM EDTTelephone Encounter - Corinna Rodriguez LPN - 03/13/2024 9:35 AM EDT Note Date & Type Note Facility 03-19-2024 Telephone encounter Note The patient has been identified by name and date of : Yes Caregiver verified no other encounters exist for this prescription request: Yes Caregiver confirmed with patient/requestor that no other refills are due, in the near future, with this provider at this time: Yes The last office visit in the department: 10/16/2023 Does the patient have a future office visit with this provider/department: Yes 04/16/2024 Requested Prescriptions Pending Prescriptions Disp Refills levothyroxine (SYNTHROID) 25 mcg tablet 90 tablet 0 Sig: Take 1 tablet by mouth daily before breakfast. loperamide (IMODIUM) 2 mg cap(s) 100 capsule 2 Sig: Take 2 at onset of loose stools, then 1 after each loose stool as needed up to 6 pills per day Analy Lawler RN March 19, 2024 4:45 PM [facility] 03-19-2024 Miscellaneous Notes The patient has been identified by name and date of : Yes Caregiver verified no other encounters exist for this prescription request: Yes Caregiver confirmed with patient/requestor that no other refills are due, in the near future, with this provider at this time: Yes The last office visit in the department: 10/16/2023 Does the patient have a future office visit with this provider/department: Yes 04/16/2024 Requested Prescriptions Pending Prescriptions Disp Refills levothyroxine (SYNTHROID) 25 mcg tablet 90 tablet 0 Sig: Take 1 tablet by mouth daily before breakfast. loperamide (IMODIUM) 2 mg cap(s) 100 capsule 2 Sig: Take 2 at onset of loose stools, then 1 after each loose stool as needed up to 6 pills per day Analy Lawler RN March 19, 2024 4:45 PM documented in this encounter [facility] 03-13-2024 Telephone encounter Note Faxed received from [facility] requesting a copy of office visit notes. Last office visit dated 10/16/23 was printed and faxed back. [facility] 03-13-2024 Miscellaneous Notes Faxed received from [facility] requesting a copy of office visit notes. Last office visit dated 10/16/23 was printed and faxed back. documented in this encounter [facility] 01-18-2024 Telephone encounter Note Prescription Refill Information The patient has been identified by name and date of : Yes Caregiver verified no other encounters exist for this prescription request: Yes Caregiver confirmed with patient/requestor that no other refills are due, in the near future, with this provider at this time: Yes The last office visit in the department: 10/16/23 Does the patient have a future office visit with this provider/department: Yes 04/16/24 Requested Prescriptions Pending Prescriptions Disp Refills QUEtiapine (SEROQUEL) 100 mg tablet 90 tablet 1 Sig: Take 1 tablet by mouth daily at bedtime. Samantha Contreras RN January 18, 2024 4:49 PM [facility] 01-18-2024 Miscellaneous Notes Prescription Refill Information The patient has been identified by name and date of : Yes Caregiver verified no other encounters exist for this prescription request: Yes Caregiver confirmed with patient/requestor that no other refills are due, in the near future, with this provider at this time: Yes The last office visit in the department: 10/16/23 Does the patient have a future office visit with this provider/department: Yes 04/16/24 Requested Prescriptions Pending Prescriptions Disp Refills QUEtiapine (SEROQUEL) 100 mg tablet 90 tablet 1 Sig: Take 1 tablet by mouth daily at bedtime. Samantha Contreras RN January 18, 2024 4:49 PM documented in this encounter [facility] 01-16-2024 Telephone encounter Note Rec'd and discarded. [facility] 01-16-2024 Miscellaneous Notes Rec'd and discarded. Patient calls and states that if provider or office receives and faxes or calls regarding any medical supplies please do not reply. Patient has been receiving lots of calls from medical supply [employer]. Patient is not initiating those and does not want supplies. Patient has already been sent a blood pressure kit and a DNA kit that she never requested. Patient states that she also received a box full of medicines and sprays as well that patient never requested. Please do not send any form unless patient is contacted by office to see if this is legit. nAaly Lawler RN documented in this encounter [facility] 01-15-2024 Telephone encounter Note Patient calls and states that if provider or office receives and faxes or calls regarding any medical supplies please do not reply. Patient has been receiving lots of calls from medical supply [employer]. Patient is not initiating those and does not want supplies. Patient has already been sent a blood pressure kit and a DNA kit that she never requested. Patient states that she also received a box full of medicines and sprays as well that patient never requested. Please do not send any form unless patient is contacted by office to see if this is legit. Analy Lawler RN [facility] 01-10-2024 Telephone encounter Note Received forms from [employer] requesting chart notes and patient's PCP to sign orders for pt to receive knee braces and lumbar orthosis. No charting noted for patient stating need for either items. Patient out of town for a few days. Patient's was asked if patient has any diagnosis for knee braces or lumbar orthosis. states no, patient had back surgery and not needing any of these. Celina Saenz LPN [facility] 01-10-2024 Miscellaneous Notes Received forms from [employer] [facility] requesting chart notes and patient's PCP to sign orders for pt to receive knee braces and lumbar orthosis. No charting noted for patient stating need for either items. Patient out of town for a few days. Patient's was asked if patient has any diagnosis for knee braces or lumbar orthosis. states no, patient had back surgery and not needing any of these. Celina Saenz LPN documented in this encounter [facility] 12-20-2023 Telephone encounter Note The patient has been identified by name and date of : Yes Caregiver verified no other encounters exist for this prescription request: Yes Caregiver confirmed with patient/requestor that no other refills are due, in the near future, with this provider at this time: Yes The last office visit in the department: 10/16/2023 Does the patient have a future office visit with this provider/department: Yes 04/16/2024 Requested Prescriptions Pending Prescriptions Disp Refills levothyroxine (SYNTHROID) 25 mcg tablet 90 tablet 0 Sig: Take 1 tablet by mouth daily before breakfast. loperamide (IMODIUM) 2 mg cap(s) 100 capsule 2 Sig: Take 2 at onset of loose stools, then 1 after each loose stool as needed up to 6 pills per day Lizzy Marmolejo RN December 20, 2023 11:12 AM [facility] 12-20-2023 Miscellaneous Notes The patient has been identified by name and date of : Yes Caregiver verified no other encounters exist for this prescription request: Yes Caregiver confirmed with patient/requestor that no other refills are due, in the near future, with this provider at this time: Yes The last office visit in the department: 10/16/2023 Does the patient have a future office visit with this provider/department: Yes 04/16/2024 Requested Prescriptions Pending Prescriptions Disp Refills levothyroxine (SYNTHROID) 25 mcg tablet 90 tablet 0 Sig: Take 1 tablet by mouth daily before breakfast. loperamide (IMODIUM) 2 mg cap(s) 100 capsule 2 Sig: Take 2 at onset of loose stools, then 1 after each loose stool as needed up to 6 pills per day Lizzy Marmolejo RN December 20, 2023 11:12 AM documented in this encounter [facility] 10-17-2023 Telephone encounter Note PATIENT NOTIFIED OF SAME. [facility] 10-17-2023 Miscellaneous Notes PATIENT NOTIFIED OF SAME. Irish. Please call patient and let them know recent labs looked stable and without problems. No changes needed at this time and to keep next scheduled appointment. Thanks. documented in this encounter [facility] 10-17-2023 Telephone encounter Note Jaelynlo. Please call patient and let them know recent labs looked stable and without problems. No changes needed at this time and to keep next scheduled appointment. Thanks. [facility] 10-16-2023 Note HNO ID: [id number] Author: IRENE WHEATLEY APRN.CNP Service: ? Author Type: Nurse Practitioner Type: Progress Notes Filed: 10/16/2023 14:59 Note Text: SUBJECTIVE Robi Olivares is a 72 year old female here today for a check up on her medical problems. Chief Complaint Patient presents with: F/U 6 months HPI Robi Olivares is a 72 year old female. She is an established patient of Jose Hyde MD. Here today for follow up on mood, anxiety. Gradual weight loss. On Seroquel. Weight stable today. Sleep is okay. Notes still depressed at times, living situation is not ideal. No issues with shortness of breath, chest pain or chest tightness. Her medications were reviewed today and her list is now up to date. Medications Current Outpatient Medications Medication Sig amLODIPine (NORVASC) 10 mg tablet Take 1 tablet by mouth once daily. levothyroxine (SYNTHROID) 25 mcg tablet Take 1 tablet by mouth daily before breakfast. loperamide (IMODIUM) 2 mg cap(s) Take 2 at onset of loose stools, then 1 after each loose stool as needed up to 6 pills per day valACYclovir (VALTREX) 500 mg tablet Take 1 tablet by mouth once daily. atorvastatin (LIPITOR) 80 mg tablet Take 1 tablet by mouth daily at bedtime. For cholesterol. clopidogrel (PLAVIX) 75 mg tablet Take 1 tablet by mouth once daily. QUEtiapine (SEROQUEL) 100 mg tablet Take 1 tablet by mouth daily at bedtime. sertraline (ZOLOFT) 100 mg tablet Take 1 tablet by mouth once daily. ferrous sulfate 325 mg (65 mg iron) tablet Take 1 tablet by mouth every other day. nitroglycerin sublingual (NITROQUICK) 0.4 mg SL tablet Dissolve 1 tablet under the tongue as needed. DISSOLVE ON TONGUE FOR CHEST PAIN. IF NO PAIN RELIEF, CALL 911 cholecalciferol, vitamin D3, 100 mcg (4,000 unit) cap Take by mouth. No current facility-administered medications for this visit. ALLERGIES Allergen Reactions Codeine Hives Darvon [Propoxyphen* Hives Morphine Other: See Comments Made tongue swell Penicillins Anaphylaxis Simvastatin Other: See Comments elevated LFTS; had tolerated Lipitor for years without problem ACTIVE PROBLEM LIST Cad (Coronary Artery Disease), [place] Coronary Artery - 10/14/2010 (A priority) Comment: 04/1997 - [place] Stent - to R[place] in [place] in [place]. She had jaw pain, shortness of breath and nausea. States she has another blockage that was only treated medically. 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; adult type - 05/05/2010 Excoriations - 05/05/2010 Xerosis Cutis - 05/05/2010 Solar lentigines - 05/05/2010 Actinic Damage//Sun-damaged skin - 05/05/2010 Acute Gastritis Without Mention of Hemorrhage - 04/20/2010 Duodenitis Without Mention of Hemorrhage - 04/20/2010 Diarrhea - 04/20/2010 Family History of Malignant Neoplasm of Gastrointestinal Tract - 04/20/2010 Anemia Hypokalemia - 12/03/2009 Vitamin D Deficiency - 08/20/2009 Unspecified Cardiovascular Disease Comment: [place] Irritable Bowel Syndrome - 12/05/2007 Essential Hypertension Comment: Essential hypertension Mixed Hyperlipidemia Comment: Hyperlipidemia Bipolar Disorder, Unspecified ([facility]) Comment: Manic-depressive Acquired Hypothyroidism Comment: Hypothyroidism Diverticulosis of Colon (Without Mention of Hemorrhage) Comment: Diverticulosis Generalized Osteoarthrosis, Unspecified Site Comment: General Osteoarthritis Social History Tobacco Use Smoking status: Some Days Packs/day: 0.25 Years: 30.00 Additional pack years: 0.00 Total pack years: 7.50 Types: Cigarettes Last attempt to quit: 06/19/2002 Years since quittin.3 Smokeless tobacco: Never Tobacco comments: Stressors noted Vaping Use Vaping Use: Never used Substance Use Topics Alcohol use: Yes Comment: socially Drug use: No Comment: Used marjiana in the past Review of Systems Respiratory: Negative. Cardiovascular: Negative. OBJECTIVE BP 130/70 Pulse 70 Wt 97 lb (44.0kg) SpO2 96% Physical Exam Vitals and nursing note reviewed. Constitutional: General: She is awake. She is not in acute distress. Appearance: She is well-groomed and underweight. (more content not included)... [facility] 10-16-2023 History of Presen t illness Narrative SUBJECTIVE Robi Olivares is a 72 year old female here today for a check up on her medical problems. Chief Complaint Patient presents with: F/U 6 months HPI Robi Olivares is a 72 year old female. She is an established patient of Jose Hyde MD. Here today for follow up on mood, anxiety. Gradual weight loss. On Seroquel. Weight stable today. Sleep is okay. Notes still depressed at times, living situation is not ideal. No issues with shortness of breath, chest pain or chest tightness. Her medications were reviewed today and her list is now up to date. Medications Current Outpatient Medications Medication Sig amLODIPine (NORVASC) 10 mg tablet Take 1 tablet by mouth once daily. levothyroxine (SYNTHROID) 25 mcg tablet Take 1 tablet by mouth daily before breakfast. loperamide (IMODIUM) 2 mg cap(s) Take 2 at onset of loose stools, then 1 after each loose stool as needed up to 6 pills per day valACYclovir (VALTREX) 500 mg tablet Take 1 tablet by mouth once daily. atorvastatin (LIPITOR) 80 mg tablet Take 1 tablet by mouth daily at bedtime. For cholesterol. clopidogrel (PLAVIX) 75 mg tablet Take 1 tablet by mouth once daily. QUEtiapine (SEROQUEL) 100 mg tablet Take 1 tablet by mouth daily at bedtime. sertraline (ZOLOFT) 100 mg tablet Take 1 tablet by mouth once daily. ferrous sulfate 325 mg (65 mg iron) tablet Take 1 tablet by mouth every other day. nitroglycerin sublingual (NITROQUICK) 0.4 mg SL tablet Dissolve 1 tablet under the tongue as needed. DISSOLVE ON TONGUE FOR CHEST PAIN. IF NO PAIN RELIEF, CALL 911 cholecalciferol, vitamin D3, 100 mcg (4,000 unit) cap Take by mouth. No current facility-administered medications for this visit. ALLERGIES Allergen Reactions Codeine Hives Darvon [Propoxyphen* Hives Morphine Other: See Comments Made tongue swell Penicillins Anaphylaxis Simvastatin Other: See Comments elevated LFTS; had tolerated Lipitor for years without problem ACTIVE PROBLEM LIST Cad (Coronary Artery Disease), [place] Coronary Artery - 10/14/2010 (A priority) Comment: 04/1997 - [place] - [place]CA in [place] in [place]. She had jaw pain, shortness of breath and nausea. States she has another blockage that was only treated medically. Chronic Diastolic Chf (Congestive Heart Failure) ([facility]) - 10/16/2023 Bilateral Carotid Artery Stenosis - 07/16/2023 S/P Lumbar Spinal Fusion - 09/29/2016 Scoliosis of Lumbar Spine - 09/09/2016 Mgus (Monoclonal Gammopathy of Unknown Significance) - 10/08/2015 Iron Deficiency Anemia - 10/08/2015 Gerd (Gastroesophageal Reflux Disease) - 06/16/2015 Sciatica Due to Displacement of Lumbar Intervertebral Disc Comment: right sided; Dr. 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 Coronary Stent - 10/14/2010 Carcinoma in Situ, Vulva Pyoderma, Unspecified - 05/05/2010 Acne Vulgaris: Inflammatory Grade III to IV: nodulocystic; adult type - 05/05/2010 Excoriations - 05/05/2010 Xerosis Cutis - 05/05/2010 Solar lentigines - 05/05/2010 Actinic Damage//Sun-damaged skin - 05/05/2010 Acute Gastritis Without Mention of Hemorrhage - 04/20/2010 Duodenitis Without Mention of Hemorrhage - 04/20/2010 Diarrhea - 04/20/2010 Family History of Malignant Neoplasm of Gastrointestinal Tract - 04/20/2010 Anemia Hypokalemia - 12/03/2009 Vitamin D Deficiency - 08/20/2009 Unspecified Cardiovascular Disease Comment: Darvin [place] Irritable Bowel Syndrome - 12/05/2007 Essential Hypertension Comment: Essential hypertension Mixed Hyperlipidemia Comment: Hyperlipidemia Bipolar Disorder, Unspecified ([facility]) Comment: Manic-depressive Acquired Hypothyroidism Comment: Hypothyroidism Diverticulosis of Colon (Without Mention of Hemorrhage) Comment: Diverticulosis Generalized Osteoarthrosis, Unspecified Site Comment: General Osteoarthritis Social History Tobacco Use Smoking status: Some Days Packs/day: 0.25 Years: 30.00 Additional pack years: 0.00 Total pack years: 7.50 Types: Cigarettes Last attempt to quit: 06/19/2002 Years since quittin.3 Smokeless tobacco: Never Tobacco comments: Stressors noted Vaping Use Vaping Use: Never used Substance Use Topics Alcohol use: Yes Comment: socially Drug use: No Comment: Used marjonhana in the past Review of Systems Respiratory: Negative. Cardiovascular: Negative. OBJECTIVE BP 130/70 Pulse 70 Wt 97 lb (44.0kg) SpO2 96% Physical Exam Vitals and nursing note reviewed. Constitutional: General: She is awake. She is not in acute distress. Appearance: She is well-groomed and underweight. She is not ill-appearing, toxic-appearing or diaphoretic. HENT: Head: Normocephalic. Right Ear: External ear normal. Left Ear: External ear normal. Nose: Nose normal. Eyes: General: Vision grossly intact. Conjunctiva/sclera: Conjunctivae normal. Pupils: Pupils are equal, round, and reactive to light. Neck: Vascular: No JVD. Trachea: Trachea normal. Cardiovascular: Rate and Rhythm: Normal rate and regular rhythm. Pulses: Normal pulses. Heart sounds: Normal heart sounds. No murmur heard. Pulmonary: Effort: Pulmonary effort is normal. No accessory muscle usage, prolonged expiration or respiratory distress. Breath sounds: Normal breath sounds. Musculoskeletal: Cervical back: Neck supple. Skin: General: Skin is warm and dry. Capillary Refill: Capillary refill takes less than 2 seconds. Neurological: General: No focal deficit present. Mental Status: She is alert and oriented to person, place, and time. Mental status is at baseline. Psychiatric: Attention and Perception: Attention and perception normal. Mood and Affect: Mood and affect normal. Speech: Speech normal. Behavior: Behavior normal. Behavior is cooperative. Thought Content: Thought content normal. Cognition and Memory: Cognition and memory normal. Judgment: Judgment normal. ASSESSMENT/PLAN: 1. Chronic diastolic CHF (congestive heart failure) (HCC) - ICD9: 428.32, 428.0, ICD10: I50.32 (primary diagnosis) Stable, routine appointments with cardiology. 2. Acquired hypothyroidism - ICD9: 244.9, ICD10: E03.9 - Instructed patient on importance of taking on an empty stomach either first thing in the morning or at bedtime. - THYROID STIMULATING HORMONE - T3, FREE - T4 FREE/FREE THYROXINE 3. Anxiety - ICD9: 300.00, ICD10: F41.9 Stable, still stressors at home. 4. Stress at home - ICD9: V61.9, ICD10: F43.9 5. Weight loss - ICD9: 783.21, ICD10: R63.4 Stable. 6. Mixed hyperlipidemia - ICD9: 272.2, ICD10: E78.2 7. Iron deficiency anemia, unspecified iron deficiency anemia type - ICD9: 280.9, ICD10: D50.9 - COMPLETE BLOOD COUNT AND DIFFERENTIAL - IRON AND TIBC - FERRITIN 8. Vitamin D deficiency - ICD9: 268.9, ICD10: E55.9 - VITAMIN D 25 HYDROXY 9. Encounter for therapeutic drug monitoring - ICD9: V58.83, ICD10: Z51.81 - COMPLETE BLOOD COUNT AND DIFFERENTIAL - COMPREHENSIVE METABOLIC PANEL Portions of this note have been entered by ancillary staff. I have reviewed and when necessary edited, so that they are an adequate record of my encounter with this patient Please note that parts of this document were created using voice recognition software and therefore may contain grammatical errors. Patient verbalizes understanding of instructions from today's visit and in agreement with treatment plan. Questions answered. Agrees to call the office if questions, concerns of issues with acute symptoms not improving or if they worsen. See diagnoses and orders for additional plan(s). Allergies and medications were reviewed, list was updated, and refills given if needed. Past medical, surgical, social, and family history reviewed and updated as appropriate. Encouraged proper diet & exercise as well as compliance with taking medications. Age-appropriate health preventative measures were discussed. Return in about 6 months (around 04/16/2024) for Follow up on chronic conditions and medications.. FRANKIE Martinez documented in this encounter [facility] 10-12-2023 Telephone encounter Note Patient has been identified by name and date of : Yes, Provider Date Time Patient phones for refill(s): Requested Prescriptions Pending Prescriptions Disp Refills amLODIPine (NORVASC) 10 mg tablet 90 tablet 3 Sig: Take 1 tablet by mouth once daily. Date of last office visit in primary care: 06/26/2023 Date of next office visit in primary care: 10/16/2023 Please advise. Thank you. Delaney Disla RN. [facility] 10-12-2023 Miscellaneous Notes Patient has been identified by name and date of : Yes, Provider Date Time Patient phones for refill(s): Requested Prescriptions Pending Prescriptions Disp Refills amLODIPine (NORVASC) 10 mg tablet 90 tablet 3 Sig: Take 1 tablet by mouth once daily. Date of last office visit in primary care: 06/26/2023 Date of next office visit in primary care: 10/16/2023 Please advise. Thank you. Delaney Disla RN. documented in this encounter [facility] 09-19-2023 Miscellaneous Notes Patient has been identified by name and date of : Yes, Criss Bobo RN Date 09/19/2023 Time 10:59 am Patient phones for refill(s): Requested Prescriptions Pending Prescriptions Disp Refills levothyroxine (SYNTHROID) 25 mcg tablet 90 tablet 0 Sig: Take 1 tablet by mouth daily before breakfast. loperamide (IMODIUM) 2 mg cap(s) 100 capsule 2 Sig: Take 2 at onset of loose stools, then 1 after each loose stool as needed up to 6 pills per day Date of last office visit in primary care: 06/26/2023 Date of next office visit in primary care: 10/16/2023 Please advise. Thank you. Criss Bobo RN. documented in this encounter [facility] 08-17-2023 Miscellaneous Notes Patient calling for refill for Seroquel. Advised to call pharmacy. Refill still available. Delaney Disla RN documented in this encounter [facility] 07-17-2023 Note HNO ID: [id number] Author: KARLA CHAMPION MD Service: ? Author Type: Physician Type: Progress Notes Filed: 07/17/2023 16:37 Note Text: [facility] CARDIOLOGY Cardiology ([facility]) [address] [facility] [id number] OUTPATIENT VISIT DATE 07/17/2023 PRIMARY CARE PHYSICIAN: Jose Hyde [address] [place] [address] HISTORY OF PRESENT ILLNESS: Ms. Olivares is a 72 year old woman with a history of coronary artery disease remote coronary intervention most recently 1996 with PCI to the RCA and posterior ventricular branch. She has a history of peripheral artery disease with iliac stents, hypertension, dyslipidemia, chronic diastolic congestive heart failure, carotid artery disease, and ongoing smoking. She presents the office for routine follow-up. Patient is under significant stress due to her interactions with her spouse. She tells me she has had significant weight loss over the years of approximately 80 to 90 pounds. She has frequent episodes of lightheadedness that worsened by change in position. However, she describes episodes of lightheadedness that can sometimes occur at rest. She has not had symptoms concerning for congestive heart failure including PND, orthopnea, or lower extremity edema. PAST CARDIAC HISTORY: Robi Olivares is a 71 year old female who presents for routine follow up. She has a PMhx of of CAD (s/p remote SC with PCI to RCA 1996 and RPL 2012), R AND L iliac artery stents 2012, family hx of premature CAD (father and uncles 30-40s) HTN, HLD, chronic diastolic HF, mitral valve regurgitation, carotid stenosis (mild US 2014), current smoker. She was last seen in office by myself on 01/31/2022. Her most recent ischemic evaluation 2018 was with stress testing without suggestion of ischemia. Most recent LHC was in 2012 with moderate mid RCA disease and minimal disease to other coronary arteries. Most recent echocardiogram August PAST MEDICAL HISTORY Diagnosis Date Acute gastritis without mention of hemorrhage Acute myocardial infarction of other specified sites, episode of care unspecified Myocardial Infarction--DR WHITE Adenomatous colon polyp TA on Jun 2015 colonoscopy (Dr. Brown) Anemia Bipolar disorder, unspecified (HCC) Manic-depressive Blood type O+ Checked in 2016 CAD (coronary artery disease) 1996 Diverticulosis of colon (without mention of hemorrhage) Diverticulosis Family history of malignant neoplasm of gastrointestinal tract Generalized osteoarthrosis, unspecified site General Osteoarthritis Hiatal hernia HTN (hypertension) Irritable bowel syndrome 12/05/2007 Mixed hyperlipidemia Hyperlipidemia Sciatica due to displacement of lumbar intervertebral disc right sided; Dr. Davison Severe vulvar dysplasia Vitamin D Deficiency 08/20/2009 PAST SURGICAL HISTORY Procedure Laterality Date COLONOSCOPY 09/06/02 Normal - Nicole COLONOSCOPY FLX DX W/COLLJ SPEC WHEN PFRMD 06/24/15 Colonoscopy COLONOSCOPY FLX DX W/COLLJ SPEC WHEN PFRMD 03/14/2017 Colonoscopy COLONOSCOPY FLX DX W/COLLJ SPEC WHEN PFRMD 03/19/2020 Colonoscopy COLONOSCOPY W/BIOPSY SINGLE/MULTIPLE 04/20/10 DILATION AND CURETTAGE DXAND/THER NONOBSTETRIC 1972 Dilation AND curettage EGD 08/30/02 small hiatal hernia - [place] EGD TRANSORAL BIOPSY SINGLE/MULTIPLE 04/20/10 ESOPHAGOGASTRODUODENOSCOPY TRANSORAL DIAGNOSTIC 06/24/15 EGD PAST SURGICAL HISTORY OF 05/1973 left knee surgery cartilage removed from knee PAST SURGICAL HISTORY OF 05/19/1997 Stent inserted right coronary artery PAST SURGICAL HISTORY OF 09/2002 Mirco left hand surgery PAST SURGICAL HISTORY OF 2008 thumb surgery left hand PAST SURGICAL HISTORY OF 2007 left knee surgery PAST SURGICAL HISTORY OF Reoperation to release adhesions REVSC OPN/PRQ ILIAC ART W/STNT PLMT AND ANGIOPLSTY 06-05-13 right leg TEAEC W/WO PATCH GRAFT COMMON FEMORAL 08-15-13 RIGHT FOREST OFFICER TEAEC W/WO PATCH GRAFT ILIOFEMORAL Left 02-01-16 TOTAL ABDOMINAL HYSTERECT W/WO RMVL TUBE OVARY 1976 Hysterectomy, DOROTHY, BSO;Fibroids/infection VULVECTOMY SIMPLE PARTIAL 10/21/2010 Partial simple posterior vulvectomy and anterior vulvar biopsy SOCIAL HISTORY Social History Tobacco Use Smoking status: Some Days Packs/day: 0.25 Years: 30.00 Additional pack years: 0.00 Total pack years: 7.50 Types: Cigarettes Last attempt to quit: 06/19/2002 Years since quittin.0 Smokeless tobacco: Never Tobacco comments: Stressors noted Vaping Use Vaping Use: Never used Substance Use Topics Alcohol use: Yes Comment: socially Drug use: No Comment: Used marjiana in the past FAMILY HISTORY Problem Relation Age of Onset Breast Cancer Mother Alzheimer's Disease Mother Heart Mother Colon Cancer Mother was diagnosed around late 60's Heart Father SC at 36 yo; di (more content not included)... [facility] 06-26-2023 Note HNO ID: [id number] Author: IRENE WHEATLEY APRN.CELLOPHANE TESTER Service: ? Author Type: Nurse Practitioner Type: Progress Notes Filed: 06/26/2023 15:09 Note Text: SUBJECTIVE Robi Olivares is a 72 year old female here today for a check up on her medical problems. Chief Complaint Patient presents with: 6 week follow up Weight Loss: over 10 lbs in the last year States has no appetite. spouse is concerned and asked that patient discuss with provider and questioned if related to thyroid HPI Robi Olivares is a 72 year old female. Here today for a follow up. At her last visit we discussed concerns of weight loss. She has had a gradual 30+ pound weight loss over the last year. We stopped her Wellbutrin and started Seroquel to also help with anxiety. Weight stable from her visit 6 weeks ago to today. Still with anxiety/stress. Spouse wondering if thyroid is the cause of her weight loss. Last TSH in range. Her medications were reviewed today and her list is now up to date. Medications Current Outpatient Medications Medication Sig clopidogrel (PLAVIX) 75 mg tablet Take 1 tablet by mouth once daily. levothyroxine (SYNTHROID) 25 mcg tablet Take 1 tablet by mouth daily before breakfast. loperamide (IMODIUM) 2 mg cap(s) Take 2 at onset of loose stools, then 1 after each loose stool as needed up to 6 pills per day atenolol (TENORMIN) 25 mg tablet take 1 tablet by mouth daily sertraline (ZOLOFT) 100 mg tablet Take 1 tablet by mouth once daily. ferrous sulfate 325 mg (65 mg iron) tablet Take 1 tablet by mouth every other day. amLODIPine (NORVASC) 10 mg tablet Take 1 tablet by mouth once daily. atorvastatin (LIPITOR) 80 mg tablet Take 1 tablet by mouth daily at bedtime. For cholesterol. valACYclovir (VALTREX) 500 mg tablet Take 1 tablet by mouth once daily. nitroglycerin sublingual (NITROQUICK) 0.4 mg SL tablet Dissolve 1 tablet under the tongue as needed. DISSOLVE ON TONGUE FOR CHEST PAIN. IF NO PAIN RELIEF, CALL 911 nystatin (MYCOSTATIN) powder Apply 1 application to affected area three times daily. cholecalciferol, vitamin D3, 100 mcg (4,000 unit) cap Take by mouth. QUEtiapine (SEROQUEL) 100 mg tablet Take 1 tablet by mouth daily at bedtime. No current facility-administered medications for this visit. ALLERGIES Allergen Reactions Codeine Hives Darvon [Propoxyphen* Hives Morphine Other: See Comments Made tongue swell Penicillins Anaphylaxis Simvastatin Other: See Comments elevated LFTS; had tolerated Lipitor for years without problem ACTIVE PROBLEM LIST Cad (Coronary Artery Disease), [place] Coronary Artery - 10/14/2010 (A priority) Comment: 04/1997 - [place] Stent - to RCA in [place] in [place]. She had jaw pain, shortness of breath and nausea. States she has another blockage that was only treated medically. 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 Coronary Stent - 10/14/2010 Carcinoma in Situ, Vulva Pyoderma, Unspecified - 05/05/2010 Acne Vulgaris: Inflammatory Grade III to IV: nodulocystic; adult type - 05/05/2010 Excoriations - 05/05/2010 Xerosis Cutis - 05/05/2010 Solar lentigines - 05/05/2010 Actinic Damage//Sun-damaged skin - 05/05/2010 Acute Gastritis Without Mention of Hemorrhage - 04/20/2010 Duodenitis Without Mention of Hemorrhage - 04/20/2010 Diarrhea - 04/20/2010 Family History of Malignant Neoplasm of Gastrointestinal Tract - 04/20/2010 Anemia Hypokalemia - 12/03/2009 Vitamin D Deficiency - 08/20/2009 Unspecified Cardiovascular Disease Comment: Darvin [place] Irritable Bowel Syndrome - 12/05/2007 Essential Hypertension Comment: Essential hypertension Mixed Hyperlipidemia Comment: Hyperlipidemia Bipolar Disorder, Unspecified (Hcc) Comment: Manic-depressive Acquired Hypothyroidism Comment: Hypothyroidism Diverticulosis of Colon (Without Mention of Hemorrhage) Comment: Diverticulosis Generalized Osteoarthrosis, Unspecified Site Comment: General Osteoarthritis Social History Tobacco Use Smoking status: Some Days Packs/day: 0.25 Years: 30.00 Additional pack years: 0.00 Total pack years: 7.50 Types: Cigarettes Last attempt to quit: 06/19/2002 Years since quittin.0 Smokeless tobacco: Never Tobacco comments: Stressors noted Vaping Use Vaping Use: Never used Substance Use Topics Alcohol use: Yes Comment: socially Drug use: No Comment: Used marjiana in the past Review of Syste (more content not included)... [facility] 05-01-2023 Note HNO ID: [id number] Author: Irene Wheatley APRN.CELLOPHANE TESTER Service: ? Author Type: Nurse Practitioner Type: Progress Notes Filed: 05/01/2023 4:34 PM Note Text: SUBJECTIVE Robi Olivares is a 72 year old female here today for concerns. Chief Complaint Patient presents with: Established Patient: Family worried about patient weight loss HPI Robi Olivares is a 72 year old female. Here today due to family concerns of weight loss. She has had about a 15 pound weight loss since August of this year. Accompanied by her cousin and sister. Recent labs showed stable CMP and normal thyroid labs. In the last year she has had a gradual 30+ pound weight loss. She has a good appetite and eats well when out with her family but when at home she does not eat much, not much appetite. No issues with teeth, no pain with chewing or issues with swallowing. No nausea or vomiting. No constipation, has chronic diarrhea, no blood in stool. Recent EGD and colonoscopy without issues. Not sleeping well. Has a lot of stress at home with her significant other. Anxiety and depression. Her medications were reviewed today and her list is now up to date. Medications Current Outpatient Medications Medication Sig loperamide (IMODIUM) 2 mg cap(s) Take 2 at onset of loose stools, then 1 after each loose stool as needed up to 6 pills per day levothyroxine (SYNTHROID) 25 mcg tablet Take 1 tablet by mouth daily before breakfast. atenolol (TENORMIN) 25 mg tablet take 1 tablet by mouth daily sertraline (ZOLOFT) 100 mg tablet Take 1 tablet by mouth once daily. ferrous sulfate 325 mg (65 mg iron) tablet Take 1 tablet by mouth every other day. amLODIPine (NORVASC) 10 mg tablet Take 1 tablet by mouth once daily. clopidogrel (PLAVIX) 75 mg tablet Take 1 tablet by mouth once daily. atorvastatin (LIPITOR) 80 mg tablet Take 1 tablet by mouth daily at bedtime. For cholesterol. valACYclovir (VALTREX) 500 mg tablet Take 1 tablet by mouth once daily. nitroglycerin sublingual (NITROQUICK) 0.4 mg SL tablet Dissolve 1 tablet under the tongue as needed. DISSOLVE ON TONGUE FOR CHEST PAIN. IF NO PAIN RELIEF, CALL 911 nystatin (MYCOSTATIN) powder Apply 1 application to affected area three times daily. cholecalciferol, vitamin D3, 100 mcg (4,000 unit) cap Take by mouth. QUEtiapine (SEROQUEL) 50 mg tablet Take 1 tablet by mouth daily at bedtime. pantoprazole DR (PROTONIX) 40 mg tablet Take 1 tablet by mouth once daily. (Patient not taking: Reported on 05/01/2023) aspirin, enteric coated (ASPIRIN, ENTERIC COATED) 81 mg EC tablet Take 1 tablet by mouth once daily. (Patient not taking: Reported on 03/28/2023) No current facility-administered medications for this visit. ALLERGIES Allergen Reactions Codeine Hives Darvon [Propoxyphen* Hives Morphine Other: See Comments Made tongue swell Penicillins Anaphylaxis Simvastatin Other: See Comments elevated LFTS; had tolerated Lipitor for years without problem ACTIVE PROBLEM LIST Cad (Coronary Artery Disease), [place] Coronary Artery - 10/14/2010 (A priority) Comment: 04/1997 - [place] Stent - to [place]CA in [place] in [place]. She had jaw pain, shortness of breath and nausea. States she has another blockage that was only treated medically. 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; adult type - 05/05/2010 Excoriations - 05/05/2010 Xerosis Cutis - 05/05/2010 Solar lentigines - 05/05/2010 Actinic Damage//Sun-damaged skin - 05/05/2010 Acute Gastritis Without Mention of Hemorrhage - 04/20/2010 Duodenitis Without Mention of Hemorrhage - 04/20/2010 Diarrhea - 04/20/2010 Family History of Malignant Neoplasm of Gastrointestinal Tract - 04/20/2010 Anemia Hypokalemia - 12/03/2009 Vitamin D Deficiency - 08/20/2009 Unspecified Cardiovascular Disease Comment: [place] Irritable Bowel Syndrome - 12/05/2007 Essential Hypertension Comment: Essential hypertension Mixed Hyperlipidemia Comment: Hyperlipidemia Bipolar Disorder, Unspecified ([facility]) Comment: Manic-depressive Acquired Hypothyroidism Comment: Hypothyroidism Diverticulosis of Colon (Without Mention of Hemorrhage) Comment: Diverticulosis Generalized Osteoarthrosis, Unspecified Site Comment: General Osteoarthritis Social History Tob (more content not included)... [facility] 05-01-2023 History of Presen t illness Narrative SUBJECTIVE Robi Olivares is a 72 year old female here today for concerns. Chief Complaint Patient presents with: Established Patient: Family worried about patient weight loss HPI Robi Olivares is a 72 year old female. Here today due to family concerns of weight loss. She has had about a 15 pound weight loss since August of this year. Accompanied by her cousin and sister. Recent labs showed stable CMP and normal thyroid labs. In the last year she has had a gradual 30+ pound weight loss. She has a good appetite and eats well when out with her family but when at home she does not eat much, not much appetite. No issues with teeth, no pain with chewing or issues with swallowing. No nausea or vomiting. No constipation, has chronic diarrhea, no blood in stool. Recent EGD and colonoscopy without issues. Not sleeping well. Has a lot of stress at home with her significant other. Anxiety and depression. Her medications were reviewed today and her list is now up to date. Medications Current Outpatient Medications Medication Sig loperamide (IMODIUM) 2 mg cap(s) Take 2 at onset of loose stools, then 1 after each loose stool as needed up to 6 pills per day levothyroxine (SYNTHROID) 25 mcg tablet Take 1 tablet by mouth daily before breakfast. atenolol (TENORMIN) 25 mg tablet take 1 tablet by mouth daily sertraline (ZOLOFT) 100 mg tablet Take 1 tablet by mouth once daily. ferrous sulfate 325 mg (65 mg iron) tablet Take 1 tablet by mouth every other day. amLODIPine (NORVASC) 10 mg tablet Take 1 tablet by mouth once daily. clopidogrel (PLAVIX) 75 mg tablet Take 1 tablet by mouth once daily. atorvastatin (LIPITOR) 80 mg tablet Take 1 tablet by mouth daily at bedtime. For cholesterol. valACYclovir (VALTREX) 500 mg tablet Take 1 tablet by mouth once daily. nitroglycerin sublingual (NITROQUICK) 0.4 mg SL tablet Dissolve 1 tablet under the tongue as needed. DISSOLVE ON TONGUE FOR CHEST PAIN. IF NO PAIN RELIEF, CALL 911 nystatin (MYCOSTATIN) powder Apply 1 application to affected area three times daily. cholecalciferol, vitamin D3, 100 mcg (4,000 unit) cap Take by mouth. QUEtiapine (SEROQUEL) 50 mg tablet Take 1 tablet by mouth daily at bedtime. pantoprazole DR (PROTONIX) 40 mg tablet Take 1 tablet by mouth once daily. (Patient not taking: Reported on 05/01/2023) aspirin, enteric coated (ASPIRIN, ENTERIC COATED) 81 mg EC tablet Take 1 tablet by mouth once daily. (Patient not taking: Reported on 03/28/2023) No current facility-administered medications for this visit. ALLERGIES Allergen Reactions Codeine Hives Darvon [Propoxyphen* Hives Morphine Other: See Comments Made tongue swell Penicillins Anaphylaxis Simvastatin Other: See Comments elevated LFTS; had tolerated Lipitor for years without problem ACTIVE PROBLEM LIST Cad (Coronary Artery Disease), Tanana Coronary Artery - 10/14/2010 (A priority) Comment: 04/1997 - SC Stent - to RCA in [place] in [place]. She had jaw pain, shortness of breath and nausea. States she has another blockage that was only treated medically. 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 Coronary Stent - 10/14/2010 Carcinoma in Situ, Vulva Pyoderma, Unspecified - 05/05/2010 Acne Vulgaris: Inflammatory Grade III to IV: nodulocystic; adult type - 05/05/2010 Excoriations - 05/05/2010 Xerosis Cutis - 05/05/2010 Solar lentigines - 05/05/2010 Actinic Damage//Sun-damaged skin - 05/05/2010 Acute Gastritis Without Mention of Hemorrhage - 04/20/2010 Duodenitis Without Mention of Hemorrhage - 04/20/2010 Diarrhea - 04/20/2010 Family History of Malignant Neoplasm of Gastrointestinal Tract - 04/20/2010 Anemia Hypokalemia - 12/03/2009 Vitamin D Deficiency - 08/20/2009 Unspecified Cardiovascular Disease Comment: Darvin CAMERON Irritable Bowel Syndrome - 12/05/2007 Essential Hypertension Comment: Essential hypertension Mixed Hyperlipidemia Comment: Hyperlipidemia Bipolar Disorder, Unspecified ([facility]) Comment: Manic-depressive Acquired Hypothyroidism Comment: Hypothyroidism Diverticulosis of Colon (Without Mention of Hemorrhage) Comment: Diverticulosis Generalized Osteoarthrosis, Unspecified Site Comment: General Osteoarthritis Social History Tobacco Use Smoking status: Some Days Packs/day: 0.25 Years: 30.00 Additional pack years: 0.00 Total pack years: 7.50 Types: Cigarettes Last attempt to quit: 06/19/2002 Years since quittin.8 Smokeless tobacco: Never Tobacco comments: Stressors noted Vaping Use Vaping Use: Never used Substance Use Topics Alcohol use: Yes Comment: socially Drug use: No Comment: Used aliceana in the past Review of Systems Constitutional: Positive for unexpected weight change. HENT: Negative for trouble swallowing. Gastrointestinal: Positive for diarrhea. Negative for abdominal distention, anal bleeding, blood in stool, constipation, nausea, rectal pain and vomiting. OBJECTIVE BP 116/70 Pulse 53 Temp 96.3 Resp 18 Wt 98 lb 6.4 oz (44.6kg) SpO2 97% Physical Exam Vitals and nursing note reviewed. Constitutional: General: She is awake. She is not in acute distress. Appearance: Normal appearance. She is well-developed, well-groomed and underweight. She is not ill-appearing, toxic-appearing or diaphoretic. HENT: Head: Normocephalic. Right Ear: External ear normal. Left Ear: External ear normal. Nose: Nose normal. Eyes: General: Vision grossly intact. Conjunctiva/sclera: Conjunctivae normal. Pupils: Pupils are equal, round, and reactive to light. Neck: Vascular: No JVD. Trachea: Trachea normal. Pulmonary: Effort: Pulmonary effort is normal. No accessory muscle usage, prolonged expiration or respiratory distress. Breath sounds: Normal breath sounds. Musculoskeletal: Cervical back: Neck supple. Skin: General: Skin is warm and dry. Capillary Refill: Capillary refill takes less than 2 seconds. Neurological: General: No focal deficit present. Mental Status: She is alert and oriented to person, place, and time. Mental status is at baseline. Psychiatric: Attention and Perception: Attention and perception normal. Mood and Affect: Mood and affect normal. Speech: Speech normal. Behavior: Behavior normal. Behavior is cooperative. Thought Content: Thought content normal. Cognition and Memory: Cognition and memory normal. Judgment: Judgment normal. ASSESSMENT/PLAN: 1. Weight loss - ICD9: 783.21, ICD10: R63.4 (primary diagnosis) Overall her labs are stable, really no new GI issues or symptoms and this has been gradual. Seems more her anxiety and stress are the main contributors. We will stop her Wellbutrin and start Seroquel. - QUETIAPINE 50 MG TABLET 2. Anxiety - ICD9: 300.00, ICD10: F41.9 Worse lately with stress at home. - QUETIAPINE 50 MG TABLET 3. Stress at home - ICD9: V61.9, ICD10: F43.9 Portions of this note have been entered by ancillary staff. I have reviewed and when necessary edited, so that they are an adequate record of my encounter with this patient Please note that parts of this document were created using voice recognition software and therefore may contain grammatical errors. Patient verbalizes understanding of instructions from today's visit and in agreement with treatment plan. Questions answered. Agrees to call the office if questions, concerns of issues with acute symptoms not improving or if they worsen. See diagnoses and orders for additional plan(s). Allergies and medications were reviewed, list was updated, and refills given if needed. Past medical, surgical, social, and family history reviewed and updated as appropriate. Encouraged proper diet & exercise as well as compliance with taking medications. Age-appropriate health preventative measures were discussed. Return in about 5 weeks (around 06/05/2023) for recheck on new medication.. Irene Wheatley APRN-DEVIN documented in this encounter [facility] 05-01-2023 Miscellaneous Notes May 01, 2023 PID: [id number] Robi TeenaAbigail Olivares [address] [place] [address] Dear Ms. Olivares, We are pleased to inform you that the results of your recent breast imaging exam on 04/28/2023 are normal. Early detection of cancer is very important. We also understand recommendations regarding breast cancer screening are controversial. Please discuss with your primary care provider which strategy is best for you and whether a mammogram is right for you. Your imaging studies and report will be kept on file at [facility] as part of your permanent medical record and are available for your continuing care. Thank you for allowing us to help in meeting your health care needs. Sincerely, Dr. Mohan Interpreting Radiologist [facility] (Normal over 40) documented in this encounter [facility] 04-28-2023 History of Presen t illness Narrative Radiology Service Progress Note PATIENT NAME: Robi Olivares DATE OF SERVICE: April 28, 2023 TIME: 1:23 PM PATIENT IDENTITY VERIFICATION COMPLETED USING TWO (2) IDENTIFIERS: Name and Date of confirmed by patient verbally. FALL SCREENING: Has the patient had 2 falls in the last year or 1 fall with injury or currently using an Ambulatory Assistive Device (Walker, Cane, Wheelchair, Crutches, etc.)? No PATIENT GENDER DATA: Female. status: : No status: NO. PATIENT RELEVANT IMPLANT DATA REVIEWED: Not Applicable RADIOLOGY DEPARTMENT: Mammography PERIPHERAL IV DATA: Not applicable SIGNED BY: RT Jay(R) April 28, 2023 1:23 PM Radiology Service Progress Note PATIENT NAME: Robi Olivares DATE OF SERVICE: April 28, 2023 TIME: 1:28 PM PATIENT IDENTITY VERIFICATION COMPLETED USING TWO (2) IDENTIFIERS: Name and Date of confirmed by patient verbally. FALL SCREENING: Has the patient had 2 falls in the last year or 1 fall with injury or currently using an Ambulatory Assistive Device (Walker, Cane, Wheelchair, Crutches, etc.)? No PATIENT GENDER DATA: Female. status: : No status: NO. PATIENT RELEVANT IMPLANT DATA REVIEWED: Not Applicable RADIOLOGY DEPARTMENT: Mammography PERIPHERAL IV DATA: Not applicable SIGNED BY: Urbano Kurtz April 28, 2023 1:28 PM documented in this encounter [facility] 04-28-2023 Note HNO ID: [id number] Author: Blaire Van Mammo Tech Service: ? Author Type: Tobacco Wetter Type: Progress Notes Filed: 04/28/2023 1:29 PM Note Text: Radiology Service Progress Note PATIENT NAME: Robi Olivares DATE OF SERVICE: April 28, 2023 TIME: 1:28 PM PATIENT IDENTITY VERIFICATION COMPLETED USING TWO (2) IDENTIFIERS: Name and Date of confirmed by patient verbally. FALL SCREENING: Has the patient had 2 falls in the last year or 1 fall with injury or currently using an Ambulatory Assistive Device (Walker, Cane, Wheelchair, Crutches, etc.)? No PATIENT GENDER DATA: Female. status: : No status: NO. PATIENT RELEVANT IMPLANT DATA REVIEWED: Not Applicable RADIOLOGY DEPARTMENT: Mammography PERIPHERAL IV DATA: Not applicable SIGNED BY: Asael KurtzServiceNow April 28, 2023 1:28 PM [facility] 04-28-2023 Note HNO ID: [id number] Author: Rosemarie Gillespie RT(R) Service: ? Author Type: Technologist Type: Progress Notes Filed: 04/28/2023 1:24 PM Note Text: Radiology Service Progress Note PATIENT NAME: Robi Olivares DATE OF SERVICE: April 28, 2023 TIME: 1:23 PM PATIENT IDENTITY VERIFICATION COMPLETED USING TWO (2) IDENTIFIERS: Name and Date of confirmed by patient verbally. FALL SCREENING: Has the patient had 2 falls in the last year or 1 fall with injury or currently using an Ambulatory Assistive Device (Walker, Cane, Wheelchair, Crutches, etc.)? No PATIENT GENDER DATA: Female. status: : No status: NO. PATIENT RELEVANT IMPLANT DATA REVIEWED: Not Applicable RADIOLOGY DEPARTMENT: Mammography PERIPHERAL IV DATA: Not applicable SIGNED BY: RT Jay(R) April 28, 2023 1:23 PM [facility] 04-19-2023 Miscellaneous Notes Spoke with patient. Given message from provider's office. Patient verbalizes understanding. Transferred to energy scheduler for mammogram appointment. Delaney Disla RN TC patient, left message for patient to call back and speak with a triage nurse regarding mammogram order being placed. Analy Lawler, ZORAIDA Order placed, please let patient know. Thanks! Patient calls and states that it is time for her yearly mammogram. Please place order so that this can be scheduled and completed. Please give patient a call back when order placed. Analy Lawler RN documented in this encounter [facility] 04-07-2023 Note HNO ID: [id number] Author: Devon Ramos MA Service: ? Author Type: Computer Operations Manager Type: Progress Notes Filed: 04/07/2023 2:31 PM Note Text: POPULATION HEALTH NAVIGATION OUTREACH Action/FYI April 07, 2023 2nd attempt - called and left message on pt's cell # offering to schedule with Pharm Med. Patient Identified by Name and : NO Outreach Outcome/Action Unable to reach patient: Left message Did you use a PCP flex slot to schedule this appointment? N/A Navigation Signature: Devon Ramos MA April 07, 2023 2:30 PM [facility] 04-06-2023 Note HNO ID: [id number] Author: Devon Ramos MA Service: ? Author Type: Computer Operations Manager Type: Progress Notes Filed: 04/06/2023 2:20 PM Note Text: POPULATION HEALTH NAVIGATION OUTREACH Action/ - Heart Failure Med Optimization Next office visit: 10/16/23 - PCP Next office visit: 07/17/23 - Cardiology Spoke with pt's who states pt is not home. Asked for Navigator to return call 04/07/23. Patient Identified by Name and : YES, via phone Outreach Outcome/Action Spoke to patient / parent / legal guardian: Patient will return the call or ask for return call Did you use a PCP flex slot to schedule this appointment? N/A Reason for Outreach Medical Neighborhood SGLT2 Payer: Payor: MEDICARE / Plan: MEDICARE A AND B / Product Type: Medicare / Care Gap Reviewed:: Specialty Scheduling Reminder: Reminder note to check Health Maintenance for items below Health Maintenance items due: RSV Vaccine(1 - 1-dose 60+ series) Never done Mammogram Screening due on 04/13/2023 Navigation Signature: Devon Ramos MA April 06, 2023 2:19 PM [facility] 04-06-2023 Note Patient Outreach (JAY BOYD) MARSHALLROBI Dickinson ([id number]) 1950 F Date Time Provider Department 04/06/23 DEVON RAMOS During your visit today, we recorded the following information about you: Devon Ramos MA 04/06/2023 2:20 PM Signed POPULATION HEALTH NAVIGATION OUTREACH Action/ - Heart Failure Med Optimization Next office visit: 10/16/23 - PCP Next office visit: 07/17/23 - Cardiology Spoke with pt's who states pt is not home. Asked for Navigator to return call 04/07/23. Patient Identified by Name and : YES, via phone Outreach Outcome/Action Spoke to patient / parent / legal guardian: Patient will return the call or ask for return call Did you use a PCP flex slot to schedule this appointment? N/A Reason for Outreach Medical Neighborhood SGLT2 Payer: Payor: MEDICARE / Plan: MEDICARE A AND B / Product Type: Medicare / Care Gap Reviewed:: Specialty Scheduling Reminder: Reminder note to check Health Maintenance for items below Health Maintenance items due: RSV Vaccine(1 - 1-dose 60+ series) Never done Mammogram Screening due on 04/13/2023 Navigation Signature: Devon Ramos MA April 06, 2023 2:19 PM Devon Ramos MA 04/07/2023 2:31 PM Signed POPULATION HEALTH NAVIGATION OUTREACH Action/FYI April 07, 2023 2nd attempt - called and left message on pt's cell # offering to schedule with Pharm Med. Patient Identified by Name and : NO Outreach Outcome/Action Unable to reach patient: Left message Did you use a PCP flex slot to schedule this appointment? N/A Navigation Signature: Devon Ramos MA April 07, 2023 2:30 PM Allergies As of Date: 04/06/2023 Noted Allergy Reaction CODEINE 10/11/2007 4 - Hives DARVON (PROPOXYPHENE HCL) 10/11/2007 4 - Hives MORPHINE 09/14/2017 14 - Other: See Comments Comments: Made tongue swell PENICILLINS 10/11/2007 10 - Anaphylaxis SIMVASTATIN 04/17/2012 14 - Other: See Comments Comments: elevated LFTS; had tolerated Lipitor for years without problem Date Reviewed: 03/28/2023 Reviewed by: Celina Saenz LPN - Fully Assessed Reason for Visit: Population Health Navigation Outreach [3910] Cmt: Heart Failure Med Optimization Prescriptions as of 04/07/2023 - buPROPion SR (WELLBUTRIN SR) 200 mg 12 hr tablet Take 1 tablet by mouth once daily. - loperamide (IMODIUM) 2 mg cap(s) Take 2 at onset of loose stools, then 1 after each loose stool as needed up to 6 pills per day - levothyroxine (SYNTHROID) 25 mcg tablet Take 1 tablet by mouth daily before breakfast. - atenolol (TENORMIN) 25 mg tablet take 1 tablet by mouth daily - pantoprazole DR (PROTONIX) 40 mg tablet Take 1 tablet by mouth once daily. - sertraline (ZOLOFT) 100 mg tablet Take 1 tablet by mouth once daily. - ferrous sulfate 325 mg (65 mg iron) tablet Take 1 tablet by mouth every other day. - amLODIPine (NORVASC) 10 mg tablet Take 1 tablet by mouth once daily. - clopidogrel (PLAVIX) 75 mg tablet Take 1 tablet by mouth once daily. - atorvastatin (LIPITOR) 80 mg tablet Take 1 tablet by mouth daily at bedtime. For cholesterol. - valACYclovir (VALTREX) 500 mg tablet Take 1 tablet by mouth once daily. - nitroglycerin sublingual (NITROQUICK) 0.4 mg SL tablet Dissolve 1 tablet under the tongue as needed. DISSOLVE ON TONGUE FOR CHEST PAIN. IF NO PAIN RELIEF, CALL 911 - nystatin (MYCOSTATIN) powder Apply 1 application to affected area three times daily. - cholecalciferol, vitamin D3, 100 mcg (4,000 unit) cap Take by mouth. - aspirin, enteric coated (ASPIRIN, ENTERIC COATED) 81 mg EC tablet Take 1 tablet by mouth once daily. Problem List As Of Date 04/06/2023 Noted Resolved Essential hypertension [I10] MIXED HYPERLIPIDEMIA [E78.2] BIPOLAR DISORDER NOS [F31.9] Acquired hypothyroidism [E03.9] Acute myocardial infarction of other specified * 09/12/2016 DIVERTICULOSIS OF COLON W/O BLEED [K57.30] GENERAL OSTEOARTHROSIS [M15.9] IRRITABLE COLON [K58.9] 12/05/2007 ASCVD [I25.10] Vitamin D Deficiency [E55.9] 08/20/2009 Hypokalemia [E87.6] 12/03/2009 Anemia [D64.9] Acute gastritis without mention of hemorrhage [*04/20/2010 Duodenitis without mention of hemorrhage [K29.8*04/20/2010 Diarrhea [R19.7] 04/20/2010 Family history of malignant neoplasm of gastroi*04/20/2010 Pyoderma, unspecified [L08.0] 05/05/2010 Acne Vulgaris: Inflammatory Grade III to IV: no*05/05/2010 Excoriations [T14.8XXA] 05/05/2010 Xerosis cutis [L85.3] 05/05/2010 Solar lentigines [L81.4] 05/05/2010 Actinic Damage//Sun-damaged skin [L57.8] 05/05/2010 CAD (coronary artery disease), picayune coronary *10/14/2010 Coronary stent 10/14/2010 Carcinoma in situ, 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] 11/05/2010 Elevated LFTs [R79.89] 03/23/2011 Fatty infiltration of liver [K76.0] 03/23/2011 Acne Scars [L90.5] 06/01/2011 IBS (ir (more content not included)... [facility] 03-28-2023 Instructions Jose Hyde MD - 03/28/2023 2:34 PM EDT Pantoprazole--may try stopping the medication by going every other day for 2 weeks then try stopping med. If have recurrence of reflux, resume medicaiton. Down the road can try lower dose 20mg daily to see of do not need the higher dose. documented in this encounter [facility] 03-28-2023 Note HNO ID: [id number] Author: Jose Hyde MD Service: ? Author Type: Physician Type: Progress Notes Filed: 04/29/2023 12:36 AM Note Text: This note was created using NoteWriter. Subjective Robi Olivares is a 72 year old female. No acute concerns to address. Stable on current meds. No adverse effects. Blood pressure controlled without adverse effects from medications. Clinically euthyroid. See assessment and plan for other issues addressed. PAST MEDICAL HISTORY Diagnosis Date Acute gastritis without mention of hemorrhage Acute myocardial infarction of other specified sites, episode of care unspecified Myocardial Infarction--DR WHITE Adenomatous colon polyp TA on Jun 2015 colonoscopy (Dr. 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 Davison Severe vulvar dysplasia Vitamin D Deficiency 08/20/2009 Current Outpatient Medications Medication Sig loperamide (IMODIUM) 2 mg cap(s) Take 2 at onset of loose stools, then 1 after each loose stool as needed up to 6 pills per day levothyroxine (SYNTHROID) 25 mcg tablet Take 1 tablet by mouth daily before breakfast. atenolol (TENORMIN) 25 mg tablet take 1 tablet by mouth daily pantoprazole DR (PROTONIX) 40 mg tablet Take 1 tablet by mouth once daily. sertraline (ZOLOFT) 100 mg tablet Take 1 tablet by mouth once daily. ferrous sulfate 325 mg (65 mg iron) tablet Take 1 tablet by mouth every other day. amLODIPine (NORVASC) 10 mg tablet Take 1 tablet by mouth once daily. clopidogrel (PLAVIX) 75 mg tablet Take 1 tablet by mouth once daily. atorvastatin (LIPITOR) 80 mg tablet Take 1 tablet by mouth daily at bedtime. For cholesterol. valACYclovir (VALTREX) 500 mg tablet Take 1 tablet by mouth once daily. nitroglycerin sublingual (NITROQUICK) 0.4 mg SL tablet Dissolve 1 tablet under the tongue as needed. DISSOLVE ON TONGUE FOR CHEST PAIN. IF NO PAIN RELIEF, CALL 911 nystatin (MYCOSTATIN) powder Apply 1 application to affected area three times daily. cholecalciferol, vitamin D3, 100 mcg (4,000 unit) cap Take by mouth. buPROPion SR (WELLBUTRIN SR) 200 mg 12 hr tablet Take 1 tablet by mouth once daily. aspirin, enteric coated (ASPIRIN, ENTERIC COATED) 81 mg EC tablet Take 1 tablet by mouth once daily. (Patient not taking: Reported on 03/28/2023) No current facility-administered medications for this visit. Review of Systems Objective BP 116/66 Pulse (!) 52 Temp 36.9 ?C (98.4 ?F) Resp 18 Wt 46.3 kg (102 lb) SpO2 96% BMI 18.07 kg/m? Physical Exam Constitutional: Appearance: Normal appearance. HENT: Head: Normocephalic. Eyes: Conjunctiva/sclera: Conjunctivae normal. Cardiovascular: Rate and Rhythm: Normal rate and regular rhythm. Heart sounds: Normal heart sounds. Pulmonary: Effort: Pulmonary effort is normal. Breath sounds: Normal breath sounds. Musculoskeletal: Right lower leg: No edema. Left lower leg: No edema. Skin: General: Skin is warm and dry. Neurological: General: No focal deficit present. Mental Status: She is alert and oriented to person, place, and time. Psychiatric: Mood and Affect: Mood normal. Behavior: Behavior normal. Thought Content: Thought content normal. Judgment: Judgment normal. Get labs today Assessment and Plan Encounter Diagnosis ICD-10-CM 1. Essential hypertension I10 COMP METABOLIC PANEL CBC 2. Vitamin D deficiency E55.9 VITAMIN D 25 HYDROXY 3. Elevated fasting glucose R73.01 See below 4. Mixed hyperlipidemia E78.2 Continue statin. Adjust dose as indicated 5. Acquired hypothyroidism E03.9 TSH BLD T4 FREE/FREE THYROX T3 FREE BLD 6. Bipolar affective disorder, remission status unspecified (HCC) F31.9 Stable on current meds. Continue present medications Above issues addressed with patient. Patient involved in shared decision making for management of medical issues. History and medications reviewed. Epic updated as needed Refills and/or prescriptions taken care of and meds adjusted as indicated after reviewed history, exam and labs. Health Maintenance reviewed. Updated record and/or ordered tests as recorded. Encouraged on efforts at healthy diet and regular exercise and adequate sleep. I spent a total of 60 minutes on the date of the service which included [id number] patient care, completing clinical documentation, performing a medically appropriate examination, counseling and educating the patient/family/caregiv (more content not included)... [facility] 03-28-2023 History of Presen t illness Narrative This note was created using Trader Samriter. Subjective Robi Olivares is a 72 year old female. No acute concerns to address. Stable on current meds. No adverse effects. Blood pressure controlled without adverse effects from medications. Clinically euthyroid. See assessment and plan for other issues addressed. PAST MEDICAL HISTORY Diagnosis Date Acute gastritis without mention of hemorrhage Acute myocardial infarction of other specified sites, episode of care unspecified Myocardial Infarction--DR WHITE Adenomatous colon polyp TA on Jun 2015 colonoscopy (Dr. 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 Davison Severe vulvar dysplasia Vitamin D Deficiency 08/20/2009 Current Outpatient Medications Medication Sig loperamide (IMODIUM) 2 mg cap(s) Take 2 at onset of loose stools, then 1 after each loose stool as needed up to 6 pills per day levothyroxine (SYNTHROID) 25 mcg tablet Take 1 tablet by mouth daily before breakfast. atenolol (TENORMIN) 25 mg tablet take 1 tablet by mouth daily pantoprazole DR (PROTONIX) 40 mg tablet Take 1 tablet by mouth once daily. sertraline (ZOLOFT) 100 mg tablet Take 1 tablet by mouth once daily. ferrous sulfate 325 mg (65 mg iron) tablet Take 1 tablet by mouth every other day. amLODIPine (NORVASC) 10 mg tablet Take 1 tablet by mouth once daily. clopidogrel (PLAVIX) 75 mg tablet Take 1 tablet by mouth once daily. atorvastatin (LIPITOR) 80 mg tablet Take 1 tablet by mouth daily at bedtime. For cholesterol. valACYclovir (VALTREX) 500 mg tablet Take 1 tablet by mouth once daily. nitroglycerin sublingual (NITROQUICK) 0.4 mg SL tablet Dissolve 1 tablet under the tongue as needed. DISSOLVE ON TONGUE FOR CHEST PAIN. IF NO PAIN RELIEF, CALL 911 nystatin (MYCOSTATIN) powder Apply 1 application to affected area three times daily. cholecalciferol, vitamin D3, 100 mcg (4,000 unit) cap Take by mouth. buPROPion SR (WELLBUTRIN SR) 200 mg 12 hr tablet Take 1 tablet by mouth once daily. aspirin, enteric coated (ASPIRIN, ENTERIC COATED) 81 mg EC tablet Take 1 tablet by mouth once daily. (Patient not taking: Reported on 03/28/2023) No current facility-administered medications for this visit. Review of Systems Objective BP 116/66 Pulse (!) 52 Temp 36.9 C (98.4 F) Resp 18 Wt 46.3 kg (102 lb) SpO2 96% BMI 18.07 kg/m Physical Exam Constitutional: Appearance: Normal appearance. HENT: Head: Normocephalic. Eyes: Conjunctiva/sclera: Conjunctivae normal. Cardiovascular: Rate and Rhythm: Normal rate and regular rhythm. Heart sounds: Normal heart sounds. Pulmonary: Effort: Pulmonary effort is normal. Breath sounds: Normal breath sounds. Musculoskeletal: Right lower leg: No edema. Left lower leg: No edema. Skin: General: Skin is warm and dry. Neurological: General: No focal deficit present. Mental Status: She is alert and oriented to person, place, and time. Psychiatric: Mood and Affect: Mood normal. Behavior: Behavior normal. Thought Content: Thought content normal. Judgment: Judgment normal. Get labs today Assessment and Plan Encounter Diagnosis ICD-10-CM 1. Essential hypertension I10 COMP METABOLIC PANEL CBC 2. Vitamin D deficiency E55.9 VITAMIN D 25 HYDROXY 3. Elevated fasting glucose R73.01 See below 4. Mixed hyperlipidemia E78.2 Continue statin. Adjust dose as indicated 5. Acquired hypothyroidism E03.9 TSH BLD T4 FREE/FREE THYROX T3 FREE BLD 6. Bipolar affective disorder, remission status unspecified (HCC) F31.9 Stable on current meds. Continue present medications Above issues addressed with patient. Patient involved in shared decision making for management of medical issues. History and medications reviewed. Epic updated as needed Refills and/or prescriptions taken care of and meds adjusted as indicated after reviewed history, exam and labs. Health Maintenance reviewed. Updated record and/or ordered tests as recorded. Encouraged on efforts at healthy diet and regular exercise and adequate sleep. I spent a total of 60 minutes on the date of the service which included [id number] patient care, completing clinical documentation, performing a medically appropriate examination, counseling and educating the patient/family/caregiver, and ordering medications, tests, or procedures. Jose Hyde MD This note was created using [employer]. Subjective Robi Olivares is a 72 year old female. Patient presents with: Established Patient: Follow up SUBJECTIVE: Robi Olivares is a 72 year old year old lady here today for follow up appointment for review of medical conditions. Stressors noted but doing okay. Fatigue noted Following with Dr. Fletcher. Noted that did not know why was getting pills from [facility]. Reviewed that did not call in July to have sent there but med that she had requested this. Wonders if needs PPI routinely Still has episodes of incontinence due to IBS with diarrhea. Asked about an appointment that was scheduled for tomorrow. Looks like was just for labs. PAST MEDICAL HISTORY Diagnosis Date Acute gastritis without mention of hemorrhage Acute myocardial infarction of other specified sites, episode of care unspecified Myocardial Infarction--DR WHITE Adenomatous colon polyp TA on Jun 2015 colonoscopy (Dr. 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 Davison Severe vulvar dysplasia Vitamin D Deficiency 08/20/2009 Current Outpatient Medications Medication Sig amLODIPine (NORVASC) 10 mg tablet Take 1 tablet by mouth once daily. aspirin, enteric coated (ASPIRIN, ENTERIC COATED) 81 mg EC tablet Take 1 tablet by mouth once daily. (Patient not taking: Reported on 03/28/2023) atenolol (TENORMIN) 25 mg tablet take 1 tablet by mouth daily atorvastatin (LIPITOR) 80 mg tablet Take 1 tablet by mouth daily at bedtime. For cholesterol. buPROPion (WELLBUTRIN) 100 mg tablet Take 1 tablet by mouth once daily. cholecalciferol, vitamin D3, 100 mcg (4,000 unit) cap Take by mouth. clopidogrel (PLAVIX) 75 mg tablet Take 1 tablet by mouth once daily. dicyclomine (BENTYL) 10 mg capsule Take 1 capsule by mouth twice daily. as directed- (Patient not taking: Reported on 03/28/2023) ferrous sulfate 325 mg (65 mg iron) tablet Take 1 tablet by mouth every other day. levothyroxine (SYNTHROID) 25 mcg tablet Take 1 tablet by mouth daily before breakfast. loperamide (IMODIUM) 2 mg cap(s) Take 2 at onset of loose stools, then 1 after each loose stool as needed up to 6 pills per day nitroglycerin sublingual (NITROQUICK) 0.4 mg SL tablet Dissolve 1 tablet under the tongue as needed. DISSOLVE ON TONGUE FOR CHEST PAIN. IF NO PAIN RELIEF, CALL 911 nystatin (MYCOSTATIN) powder Apply 1 application to affected area three times daily. pantoprazole DR (PROTONIX) 40 mg tablet Take 1 tablet by mouth once daily. sertraline (ZOLOFT) 100 mg tablet Take 1 tablet by mouth once daily. valACYclovir (VALTREX) 500 mg tablet Take 1 tablet by mouth once daily. No current facility-administered medications for this visit. Review of Systems Objective BP 116/66 Pulse (!) 52 Temp 36.9 C (98.4 F) Resp 18 Wt 46.3 kg (102 lb) SpO2 96% BMI 18.07 kg/m Physical Exam Assessment and Plan documented in this encounter [facility] 03-28-2023 Note HNO ID: [id number] Author: Jose Hyde MD Service: ? Author Type: Physician Type: Progress Notes Filed: 04/29/2023 12:36 AM Note Text: This note was created using [employer]. Subjective Robi Olivares is a 72 year old female. Patient presents with: Established Patient: Follow up SUBJECTIVE: Robi Olivares is a 72 year old year old lady here today for follow up appointment for review of medical conditions. Stressors noted but doing okay. Fatigue noted Following with Dr. Fletcher. Noted that did not know why was getting pills from [facility]. Reviewed that did not call in July to have sent there but med that she had requested this. Wonders if needs PPI routinely Still has episodes of incontinence due to IBS with diarrhea. Asked about an appointment that was scheduled for tomorrow. Looks like was just for labs. PAST MEDICAL HISTORY Diagnosis Date Acute gastritis without mention of hemorrhage Acute myocardial infarction of other specified sites, episode of care unspecified Myocardial Infarction--DR WHITE Adenomatous colon polyp TA on Jun 2015 colonoscopy (Dr. 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 Davison Severe vulvar dysplasia Vitamin D Deficiency 08/20/2009 Current Outpatient Medications Medication Sig amLODIPine (NORVASC) 10 mg tablet Take 1 tablet by mouth once daily. aspirin, enteric coated (ASPIRIN, ENTERIC COATED) 81 mg EC tablet Take 1 tablet by mouth once daily. (Patient not taking: Reported on 03/28/2023) atenolol (TENORMIN) 25 mg tablet take 1 tablet by mouth daily atorvastatin (LIPITOR) 80 mg tablet Take 1 tablet by mouth daily at bedtime. For cholesterol. buPROPion (WELLBUTRIN) 100 mg tablet Take 1 tablet by mouth once daily. cholecalciferol, vitamin D3, 100 mcg (4,000 unit) cap Take by mouth. clopidogrel (PLAVIX) 75 mg tablet Take 1 tablet by mouth once daily. dicyclomine (BENTYL) 10 mg capsule Take 1 capsule by mouth twice daily. as directed- (Patient not taking: Reported on 03/28/2023) ferrous sulfate 325 mg (65 mg iron) tablet Take 1 tablet by mouth every other day. levothyroxine (SYNTHROID) 25 mcg tablet Take 1 tablet by mouth daily before breakfast. loperamide (IMODIUM) 2 mg cap(s) Take 2 at onset of loose stools, then 1 after each loose stool as needed up to 6 pills per day nitroglycerin sublingual (NITROQUICK) 0.4 mg SL tablet Dissolve 1 tablet under the tongue as needed. DISSOLVE ON TONGUE FOR CHEST PAIN. IF NO PAIN RELIEF, CALL 911 nystatin (MYCOSTATIN) powder Apply 1 application to affected area three times daily. pantoprazole DR (PROTONIX) 40 mg tablet Take 1 tablet by mouth once daily. sertraline (ZOLOFT) 100 mg tablet Take 1 tablet by mouth once daily. valACYclovir (VALTREX) 500 mg tablet Take 1 tablet by mouth once daily. No current facility-administered medications for this visit. Review of Systems Objective BP 116/66 Pulse (!) 52 Temp 36.9 ?C (98.4 ?F) Resp 18 Wt 46.3 kg (102 lb) SpO2 96% BMI 18.07 kg/m? Physical Exam Assessment and Plan [facility] 01-25-2023 Miscellaneous Notes Patient has been identified by name and date of : Yes, Patient phones for refill(s): Requested Prescriptions Pending Prescriptions Disp Refills pantoprazole DR (PROTONIX) 40 mg tablet 30 tablet 5 Sig: Take 1 tablet by mouth once daily. Date of last office visit in primary care: 06/29/2022 No future appt scheduled. Last 2 Encounter Wt Readings: Date: Wt: 08/22/2022 51.3 kg (113 lb) 06/29/2022 52.2 kg (115 lb) Previous labs/tests for medication: Not applicable Please advise. Thank you. Amanda Hummel LPN Patient has been identified by name and date of : Yes Last office visit in this department: Visit date not found RX INSTRUCTIONS: Pharmacy initiated this request. No need to notify patient. Patient phones requesting refills as follows: Requested Prescriptions Pending Prescriptions Disp Refills pantoprazole DR (PROTONIX) 40 mg tablet 30 tablet 5 Sig: Take 1 tablet by mouth once daily. Please review and advise. Donya Singh Pss documented in this encounter [facility] 12-22-2022 Miscellaneous Notes Called pt and given Dr. Coburn's response. Let patient know we are not allowing patient's to move from one provider to another since we all closed several months ago due to having too many patient's in our panels. Hello, Patient would like to know if Dr Coburn would accept her as a new patient. She knows he is not accepting new patients at this time but she has 5 family members that go to him and she would also like to establish with him. Please advise, thank you. Zhanna documented in this encounter [facility] 10-11-2022 Miscellaneous Notes Pt notified and verbalizes understanding. Angela Vivar MA ----- Message from Zhanna Tracy APRN.CELLOPHANE TESTER sent at 10/11/2022 11:17 AM EDT ----- Please call patient and notify her of stress testing results. Stress testing is without suggestion of ischemia. Normal EKG portion, normal nuclear portion, low risk scan. Thank you! documented in this encounter [facility] 10-10-2022 History of Presen t illness Narrative RADIOLOGY SERVICE PROGRESS NOTE SERVICE DATE: 10/10/2022 SERVICE TIME: 944 PATIENT IDENTITY VERIFICATION COMPLETED USING TWO (2) METHODS: Patient confirmed name and Date of verbally. ALLERGIES REVIEWED: Dina Bryant RN MEDICATIONS REVIEWED BY: Dina Bryant RN PROCEDURE TYPE: NM STRESS: 0.4 mg of Lexiscan was administered IV at 1012 over 10 Seconds by Dina Bryant RN Reversal agent used:N/A LOT [id number] EXP 01/17/26 IV SITE: IV palced by nuclear tecnologist POST EXAM PIV STATUS: Discontinued by Signals Intelligence Analysis Manager PATIENT DISCHARGED TO: Nuclear Medicine Department for post stress imaging A Diagnostic radioactive procedure has taken place, with no further precautions necessary other than routine body substance precautions. More information regarding radiation safety can be found using this link: [email or web address] SIGNATURE: Dina Bryant RN PATIENT NAME:Robi Olivares DATE: 10/10/22 TIME: 10:38 AM documented in this encounter [facility] 09-19-2022 Miscellaneous Notes Patient has been identified by name and date of : Yes, Provider Tushar Date 09/19/22 Time 1:19pm Patient phones for refill(s): Requested Prescriptions Pending Prescriptions Disp Refills amLODIPine (NORVASC) 10 mg tablet 90 tablet 3 Sig: Take 1 tablet by mouth once daily. Date of last office visit in primary care: 06/29/22 Last 2 Encounter Wt Readings: Date: Wt: 08/22/2022 51.3 kg (113 lb) 06/29/2022 52.2 kg (115 lb) Previous labs/tests for medication: Blood Pressure: BUN (mg/dL) Date Value 07/26/2022 9 05/28/2021 16 Sodium (mmol/L) Date Value 07/26/2022 142 05/28/2021 140 Last 1 Encounter BP Readings: Date: BP: 08/22/2022 118/68 Please advise. Thank you. Mary Ann Henao LPN Patient has been identified by name and date of : Yes Requested Prescriptions Pending Prescriptions Disp Refills amLODIPine (NORVASC) 10 mg tablet 90 tablet 3 Sig: Take 1 tablet by mouth once daily. RX INSTRUCTIONS: Patient aware RX will be sent to pharmacy. No need to notify patient. Nadege Acuna Pss documented in this encounter [facility] 08-26-2022 Miscellaneous Notes Last seen pcp 06/29/22. Pt needs December appt arranged From [facility]. Return in about 6 months (around 12/27/2022) for 6 months follow up (make next 2). Patient has been identified by name and date of : Yes Requested Prescriptions Pending Prescriptions Disp Refills atenolol (TENORMIN) 25 mg tablet 90 tablet 1 Sig: Take 1 tablet by mouth once daily. RX INSTRUCTIONS: Patient aware RX will be sent to pharmacy. No need to notify patient. Chitra Diop Pss documented in this encounter [facility] 08-22-2022 Instructions Zhanna Tracy APRN.CELLOPHANE TESTER - 08/22/2022 3:35 PM EST Images from the original note were not included. CORONARY ARTERY DISEASE View image View image WHAT IS CORONARY ARTERY DISEASE? Coronary artery disease (CAD) is a type of heart disease caused by a problem with the blood vessels that bring blood and oxygen to the heart muscle. These arteries are called the coronary arteries. This disease increases your risk for heart attack and sudden . WHAT IS THE CAUSE? Fatty deposits called plaque may build up in blood vessels and make them narrower. The narrowing decreases the amount of blood flow to the heart. Plaque also increases the chance that blood clots may form and block a blood vessel, which can cause a heart attack or stroke. Your risk for CAD may be higher if you: Have a family history of coronary artery disease at an early age Smoke Have high blood pressure Have diabetes Are very overweight Don t get enough exercise Have high levels of blood fat--for example, high cholesterol WHAT ARE THE SYMPTOMS? Coronary artery disease may not cause any symptoms. When there are symptoms, the most common one is chest pain, called angina. You may feel: A feeling of tightness or heaviness in the chest Squeezing, pressure, or burning in the chest Angina symptoms usually: Last for 5 minutes or less and go away with rest or medicine such as nitroglycerin. Happen when the heart has to work harder, such as after a heavy meal or during physical activity or emotional stress. Angina may also happen when you are resting. Call 911 for emergency help right away if you have symptoms of a heart attack. The most common symptoms include: Chest pain or pressure, squeezing, or fullness in the center of your chest that lasts more than a few minutes, or goes away and comes back (may feel like indigestion or heartburn) Pain or discomfort in one or both arms or shoulders, or in your back, neck, jaw, or stomach Trouble breathing Breaking out in a cold sweat for no known reason If your provider has prescribed nitroglycerin for angina, pain that does not go away after taking your nitroglycerin as directed Along with these symptoms, you may also feel very tired, faint, or be sick to your stomach. HOW IS IT DIAGNOSED? Your healthcare provider will ask about your symptoms and medical history and examine you. Tests may include: Blood tests An ECG (also called an EKG or electrocardiogram), which measures and records your heartbeat. An exercise treadmill test to see how your heart works when you exercise An echocardiogram, which uses sound waves (ultrasound) to see how well your heart is pumping Angiogram, which is a series of X-rays taken after your healthcare provider injects a special dye into your blood vessels to show the [place] of the arteries and any blockage CT scan, which uses X-rays and a computer to show detailed pictures of the arteries HOW IS IT TREATED? Your treatment depends on many factors, such as your age, heart muscle function, and other health problems. At first, treatment may include diet changes and an exercise program. Your healthcare provider may prescribe medicine. Many people need to take 2 or more medicines to help prevent a heart attack or stroke. It may take several weeks or months to find the best treatment for you. Your provider may also prescribe other types of medicine to lower blood pressure, help stop chest pain, control an irregular heartbeat, help prevent blood clots, or lower blood fat (cholesterol). Your provider may recommend a daily low dose of aspirin. Taking an aspirin every day may lower your risk for a heart attack or stroke. Not everyone should take aspirin. Daily use of aspirin can cause problems, such as stomach irritation, bleeding, and hearing loss. Ask your healthcare provider if you should take aspirin and if so, how much to take. If your coronary arteries are badly blocked, you may need balloon angioplasty or bypass surgery. A balloon angioplasty opens blocked blood vessels and improves blood flow. A metal mesh device called a stent is usually left in the blood vessels to help keep them open. Bypass surgery uses blood vessels from other parts of the body, or manmade material, to make a new path around a blocked area. HOW CAN I TAKE CARE OF MYSELF? CC If you have coronary artery disease, there are things you can do to take care of yourself now and prevent problems in the future. Follow your provider's advice about activity, exercise, medicine, and follow-up visits. Lower the amount of salt, saturated and trans fats, and cholesterol in your diet. Work with your healthcare provider to control diabetes, blood pressure, or other health problems you may have. Try to keep a healthy weight. If you are overweight, talk to your provider about ways to lose weight. If you smoke, try to quit. Talk to your healthcare provider about ways to quit smoking. Ask your healthcare provider: How and when you will hear your test results How long it will take to recover What activities you should avoid and when you can return to your normal activities How to take care of yourself at home What symptoms or problems you should watch for and what to do if you have them Make sure you know when you should come back for a checkup. HOW CAN I HELP PREVENT CORONARY ARTERY DISEASE? You can prevent this disease with a heart-healthy lifestyle: Eat a healthy diet and keep a healthy weight. Stay fit with the right kind of exercise for you. Find ways to manage stress. Don t smoke. Limit your use of alcohol. Talk to your healthcare provider about your personal and family medical history and your lifestyle habits. This will help you know what you can do to lower your risk for coronary artery disease. If you have a strong family history of CAD, a healthy lifestyle may slow the start of the disease and maybe even keep you from getting it. However, you must have regular checkups to keep a close watch on the health of your heart. Developed by [employer]. Published by [employer]. Copyright 2014 [employer] and/or one of its subsidiaries. All rights reserved. documented in this encounter [facility] 08-22-2022 History of Presen t illness Narrative Chief Complaint Patient presents with: Established Patient Follow-Up History of Present Illness: Robi Olivares is a 71 year old female who presents for routine follow up. She has a PMhx of of CAD (s/p remote SC with PCI to RCA 1996 and RPL 2012), R & L iliac artery stents 2012, family hx of premature CAD (father and uncles 30-40s) HTN, HLD, chronic diastolic HF, mitral valve regurgitation, carotid stenosis (mild US 2014), current smoker. She was last seen in office by myself on 01/31/2022. Her most recent ischemic evaluation 2018 was with stress testing without suggestion of ischemia. Most recent LHC was in 2012 with moderate mid RCA disease and minimal disease to other coronary arteries. Most recent echocardiogram August 2021 revealed largely normal structure and function, mild LVH and mild MR. Today, she explains feeling seasonal depression. She is independent in ADLs and completes routine housework but admits she has been fairly inactive. Last month, she experienced chest discomfort that was stabbing in nature. She has not experienced any other cardiac symptoms. She denies shortness of breath, dizziness, palpitations, orthopnea, LE swelling. We reviewed cardiac risk factors and modifications. Unfortunately, she continues to smoke. We agreed to evaluate atypical chest discomfort further with nuclear med stress testing as it has been greater than 5 years since her last stress test and now 10 years since her most recent left heart catheterization. She reports taking medications as prescribed. PAST MEDICAL HISTORY Diagnosis Date Acute gastritis without mention of hemorrhage Acute myocardial infarction of other specified sites, episode of care unspecified Myocardial Infarction--DR WHITE Adenomatous colon polyp TA on Jun 2015 colonoscopy (Dr. 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 Davison Severe vulvar dysplasia Vitamin D Deficiency 08/20/2009 PAST SURGICAL HISTORY Procedure Laterality Date COLONOSCOPY 09/06/02 Normal - [place] COLONOSCOPY FLX DX W/COLLJ SPEC WHEN PFRMD 06/24/15 Colonoscopy COLONOSCOPY FLX DX W/COLLJ SPEC WHEN PFRMD 03/14/2017 Colonoscopy COLONOSCOPY FLX DX W/COLLJ SPEC WHEN PFRMD 03/19/2020 Colonoscopy COLONOSCOPY W/BIOPSY SINGLE/MULTIPLE 04/20/10 DILATION & CURETTAGE DX&/THER NONOBSTETRIC 1972 Dilation & curettage EGD 08/30/02 small hiatal hernia - [place] EGD TRANSORAL BIOPSY SINGLE/MULTIPLE 04/20/10 ESOPHAGOGASTRODUODENOSCOPY TRANSORAL DIAGNOSTIC 06/24/15 EGD PAST SURGICAL HISTORY OF 05/1973 left knee surgery cartilage removed from knee PAST SURGICAL HISTORY OF 05/19/1997 Stent inserted right coronary artery PAST SURGICAL HISTORY OF 09/2002 Mirco left hand surgery PAST SURGICAL HISTORY OF 2008 thumb surgery left hand PAST SURGICAL HISTORY OF 2007 left knee surgery PAST SURGICAL HISTORY OF Reoperation to release adhesions REVSC OPN/PRQ ILIAC ART W/STNT PLMT & ANGIOPLSTY 06-05-13 right leg TEAEC W/WO PATCH GRAFT COMMON FEMORAL 08-15-13 RIGHT FOREST OFFICER TEAEC W/WO PATCH GRAFT ILIOFEMORAL Left 02-01-16 TOTAL ABDOMINAL HYSTERECT W/WO RMVL TUBE OVARY 1976 Hysterectomy, DOROTHY, BSO;Fibroids/infection VULVECTOMY SIMPLE PARTIAL 10/21/2010 Partial simple posterior vulvectomy and anterior vulvar biopsy FAMILY HISTORY Problem Relation Age of Onset Breast Cancer Mother Alzheimer's Disease Mother Heart Mother Colon Cancer Mother was diagnosed around late 60's Heart Father SC at 36 yo; when mom was 3 months other (bladder cancer) Brother Diabetes Brother Stroke Brother 1/2 brother Heart Brother diabetes; had 4 vessel CABG 09/2011; bladder cancer Coronary Artery Disease Paternal Uncle all 5 uncles had SC's in their early 40's Coronary Artery Disease Paternal Uncle Coronary Artery Disease Paternal Uncle Coronary Artery Disease Paternal Uncle Coronary Artery Disease Paternal Uncle Social History Tobacco Use Smoking status: Some Days Packs/day: 0.25 Years: 30.00 Pack years: 7.50 Types: Cigarettes Last attempt to quit: 06/19/2002 Years since quittin.1 Smokeless tobacco: Never Vaping Use Vaping Use: Never used Substance Use Topics Alcohol use: Yes Comment: socially Drug use: No Comment: Used marjiana in the past ALLERGIES Allergen Reactions Codeine Hives Darvon [Propoxyphen* Hives Morphine Other: See Comments Made tongue swell Penicillins Anaphylaxis Simvastatin Other: See Comments elevated LFTS; had tolerated Lipitor for years without problem Medications: Current Outpatient Medications Medication Sig Dispense Refill pantoprazole DR (PROTONIX) 40 mg tablet Take 1 tablet by mouth once daily. 30 tablet 5 dicyclomine (BENTYL) 10 mg capsule Take 1 capsule by mouth twice daily. as directed- 60 capsule 3 clopidogrel (PLAVIX) 75 mg tablet Take 1 tablet by mouth once daily. 90 tablet 3 buPROPion (WELLBUTRIN) 100 mg tablet Take 1 tablet by mouth once daily. 90 tablet 3 atorvastatin (LIPITOR) 80 mg tablet Take 1 tablet by mouth daily at bedtime. For cholesterol. 90 tablet 3 valACYclovir (VALTREX) 500 mg tablet Take 1 tablet by mouth once daily. 90 tablet 3 nitroglycerin sublingual (NITROQUICK) 0.4 mg SL tablet Dissolve 1 tablet under the tongue as needed. DISSOLVE ON TONGUE FOR CHEST PAIN. IF NO PAIN RELIEF, CALL 911 25 tablet 3 loperamide (IMODIUM) 2 mg cap(s) Take 2 at onset of loose stools, then 1 after each loose stool as needed up to 6 pills per day 100 capsule 5 atenolol (TENORMIN) 25 mg tablet Take 1 tablet by mouth once daily. 90 tablet 1 levothyroxine (SYNTHROID) 25 mcg tablet Take 1 tablet by mouth daily before breakfast. 90 tablet 3 ferrous sulfate 325 mg (65 mg iron) tablet Take 1 tablet by mouth every other day. 45 tablet 3 sertraline (ZOLOFT) 100 mg tablet Take 1 tablet by mouth once daily. 90 tablet 3 amLODIPine (NORVASC) 10 mg tablet Take 1 tablet by mouth once daily. 90 tablet 3 nystatin (MYCOSTATIN) powder Apply 1 application to affected area three times daily. 1 Bottle 0 cholecalciferol, vitamin D3, 100 mcg (4,000 unit) cap Take by mouth. aspirin, enteric coated (ASPIRIN, ENTERIC COATED) 81 mg EC tablet Take 1 tablet by mouth once daily. 0 Current Facility-Administered Medications Medication Dose Route Frequency Provider Last Rate Last Admin perflutren lipid microspheres 1.3 mL in NaCl (PF) 0.9% 10 mL injection (DEFINITY) INTRAVENOUS DIRECTED PRN Zhanna Tracy APRN.CNP sodium chloride 0.9 % (flush) 10 mL (BD POSIFLUSH) 10 mL INTRAVENOUS DIRECTED PRN Zhanna Tracy, FRONT CLERK.CELLOPHANE TESTER Review of Systems Constitutional: Negative for chills, diaphoresis, fever, malaise/fatigue and weight loss. HENT: Negative for congestion, ear pain, nosebleeds, sinus pain and sore throat. Eyes: Negative for pain. Respiratory: Negative for cough, shortness of breath and wheezing. Cardiovascular: Positive for chest pain. Negative for palpitations and leg swelling. Gastrointestinal: Negative for abdominal pain, blood in stool and melena. Genitourinary: Negative for hematuria. Musculoskeletal: Negative for falls. Neurological: Negative for dizziness, tingling, sensory change, speech change, focal weakness, loss of consciousness, weakness and headaches. Endo/Heme/Allergies: Does not bruise/bleed easily. Psychiatric/Behavioral: Positive for depression. Negative for memory loss and suicidal ideas. The patient is not nervous/anxious and does not have insomnia. Physical Examination: Vitals:BP 118/68 Pulse 65 Resp 18 Wt 113 lb (51.3kg) SpO2 97% BP w/Orthostatic Vitals Date and Time Orthostatic BP Orthostatic Pulse BP Pulse BP Position BP Site BP Cuff Size 08/22/22 1514 -- -- 118/68 65 Sitting Right Arm Regular Adult Peak Flow Date and Time PF Resp 08/22/22 1514 -- 18 Last 2 Encounter Wt Readings: Date: Wt: 08/22/2022 113 lb (51.3 kg) 06/29/2022 115 lb (52.2 kg) Physical Exam HENT: Head: Normocephalic. Eyes: Pupils: Pupils are equal, round, and reactive to light. Cardiovascular: Rate and Rhythm: Normal rate and regular rhythm. Pulses: Radial pulses are 2+ on the right side and 2+ on the left side. Dorsalis pedis pulses are 2+ on the right side and 2+ on the left side. Heart sounds: Normal heart sounds, S1 normal and S2 normal. Pulmonary: Effort: Pulmonary effort is normal. No accessory muscle usage or respiratory distress. Breath sounds: Normal breath sounds. Abdominal: General: Bowel sounds are normal. Palpations: Abdomen is soft. Musculoskeletal: General: Normal range of motion. Cervical back: Normal range of motion. Right lower leg: No edema. Left lower leg: No edema. Skin: General: Skin is warm and dry. Neurological: Mental Status: She is alert and oriented to person, place, and time. Gait: Gait is intact. Psychiatric: Mood and Affect: Affect normal. Cognition and Memory: Memory normal. Judgment: Judgment normal. Most Recent Cardiac Testing Echo 09/07/2021 CONCLUSIONS: - Technically difficult exam due to body habitus. - Exam indication: CAD - The left ventricle is normal in size. There is mild left ventricular hypertrophy. Left ventricular systolic function is normal. EF = 69 5% (2D biplane) Grade I left ventricular diastolic dysfunction. - The right ventricle is normal in size. Right ventricular systolic function is normal. - Mild mitral regurgitation. - The patient has not had a prior CC echocardiographic exam for comparison. Left heart cath 2012 left main: no significant disease LAD: minimal disease left circumflex: small nondominant minimal disease RCA 85% mid, patent stent Assessment and Plan: CAD -s/p remote SC with PCI to RCA 1996 and RPL 2012 -Atypical chest discomfort stabbing in nature. Nuclear med stress testing for further evaluation -EF 69% -continue ASA, plavix, statin, atenolol -encouraged routine activity and heart healthy diet for risk factor modification HTN -118/68 -Continue current medication(s) -Encouraged dietary sodium restriction/DASH diet -Recommended regular aerobic exercise. -Recommend home blood pressure monitoring, to bring results in on next visit -Discussed need and benefit for weight loss. -Goal of BP <130/80 Chronic diastolic HF -EF 69% -grade I left ventricular diastolic dysfunction -Compensated on exam -recommended heart healthy, 2g low sodium diet, daily weights HLD -lipid panel July 2022 LDL 74 -continue Lipitor 80 mg PAD R & L iliac artery stents 2012 Continue ASA and statin Carotid stenosis -mild US 2014 -continue ASA, statin Tobacco use -Encouraged cessation -Physiologic and physical aspects of tobacco addiction as well as strategies for quitting were discussed. -Counseling was given focusing on the harmful effects of this addiction especially given the patient's medical condition(s) which will be worsened because of the chemicals in tobacco. Follow-up in 6 months. Sooner for abnormal testing results. Patient to call with any issues or concerns prior to then. Electronically signed by Zhanna Tracy APRN.CNP on August 22, 2022, 3:16 PM documented in this encounter [facility] 07-26-2022 Miscellaneous Notes Images from the original note were not included. Approved Prior authorization approved Payer: [facility] [phone] Approval Details Authorized from June 19, 2022 to July 26, 2023 Pt notified via my chart. Per other encounter pt says bentyl rx needs PA. Electronic PA requested and completed. documented in this encounter [facility] 07-26-2022 Miscellaneous Notes Patient calling with a few requests: Pt requesting her pantoprazole 20mg twice daily be changed to 40 mg once daily, with quantity of 30, if PCP agreeable. Pt states this will reduce cost for her with her current insurance plan. Send to [facility]. Pended for review. Pt requesting dicyclomine 10 mg be sent to [facility] also-for reduced cost with her insurance plan. Script pended for review. Patient states she will need a prior authorization for her dicyclomine 10mg. Informed pt that PA request would be submitted. Please call patient with updates. Thank you. Prior authorization requested for the following medication: Medication: dicyclomine 10mg Provider: Dr. Hyde Insurance Company Name: * Pt reports her insurance is with [employer] Pharmacy Name: [facility] documented in this encounter [facility] 06-29-2022 History of Presen t illness Narrative This note was created using [employer]. Subjective Robi Olivares is a 71 year old female. Patient presents with: F/U 6 months SUBJECTIVE: Robi Olivares is a 71 year old year old lady here today for 6 month follow up appointment for review of medical conditions. Tired all the time even though gets naps in day and some sleep at night. Still broken sleep at night. The dogs out at 2 to 3 times a night. Snacky at night. Stable on cardiac meds, etc. Has had trouble with diarrhea issues. Imodium capsules area helping. On [employer] now with [facility] for meds. PAST MEDICAL HISTORY Diagnosis Date Acute gastritis without mention of hemorrhage Acute myocardial infarction of other specified sites, episode of care unspecified Myocardial Infarction--DR WHITE Adenomatous colon polyp TA on Jun 2015 colonoscopy (Dr. 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 Davison Severe vulvar dysplasia Vitamin D Deficiency 08/20/2009 Current Outpatient Medications Medication Sig loperamide (IMODIUM) 2 mg cap(s) Take once daily as needed or as directed. clopidogrel (PLAVIX) 75 mg tablet Take 1 tablet by mouth once daily. atenolol (TENORMIN) 25 mg tablet Take 1 tablet by mouth once daily. buPROPion (WELLBUTRIN) 100 mg tablet Take 1 tablet by mouth once daily. pantoprazole DR (PROTONIX) 20 mg tablet Take 1 tablet by mouth twice daily. levothyroxine (SYNTHROID) 25 mcg tablet Take 1 tablet by mouth daily before breakfast. atorvastatin (LIPITOR) 80 mg tablet Take 1 tablet by mouth daily at bedtime. For cholesterol. ferrous sulfate 325 mg (65 mg iron) tablet Take 1 tablet by mouth every other day. valACYclovir (VALTREX) 500 mg tablet Take 1 tablet by mouth once daily. sertraline (ZOLOFT) 100 mg tablet Take 1 tablet by mouth once daily. amLODIPine (NORVASC) 10 mg tablet Take 1 tablet by mouth once daily. nystatin (MYCOSTATIN) powder Apply 1 application to affected area three times daily. nitroglycerin sublingual (NITROQUICK) 0.4 mg SL tablet Dissolve 1 tablet under the tongue as needed. DISSOLVE ON TONGUE FOR CHEST PAIN. IF NO PAIN RELIEF, CALL 911 cholecalciferol, vitamin D3, 100 mcg (4,000 unit) cap Take by mouth. aspirin, enteric coated (ASPIRIN, ENTERIC COATED) 81 mg EC tablet Take 1 tablet by mouth once daily. Current Facility-Administered Medications Medication Dose Route Frequency perflutren lipid microspheres 1.3 mL in NaCl (PF) 0.9% 10 mL injection (DEFINITY) INTRAVENOUS DIRECTED PRN sodium chloride 0.9 % (flush) 10 mL (BD POSIFLUSH) 10 mL INTRAVENOUS DIRECTED PRN Review of Systems Objective BP 128/74 Pulse 65 Temp 36 C (96.8 F) Resp 18 Wt 52.2 kg (115 lb) SpO2 95% BMI 20.37 kg/m Physical Exam Constitutional: Appearance: Normal appearance. HENT: Head: Normocephalic. Eyes: Conjunctiva/sclera: Conjunctivae normal. Cardiovascular: Rate and Rhythm: Normal rate and regular rhythm. Heart sounds: Normal heart sounds. Pulmonary: Effort: Pulmonary effort is normal. Breath sounds: Normal breath sounds. Abdominal: General: Abdomen is flat. Bowel sounds are normal. Palpations: Abdomen is soft. Tenderness: There is abdominal tenderness (Mild lower tenderness). Skin: General: Skin is warm and dry. Neurological: General: No focal deficit present. Mental Status: She is alert and oriented to person, place, and time. Psychiatric: Mood and Affect: Mood normal. Behavior: Behavior normal. Thought Content: Thought content normal. Judgment: Judgment normal. Assessment and Plan Encounter Diagnosis ICD-10-CM 1. Coronary artery disease involving picayune coronary artery of picayune heart without angina pectoris I25.10 clopidogrel (PLAVIX) 75 mg tablet nitroglycerin sublingual (NITROQUICK) 0.4 mg SL tablet 2. 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 Loose stools R19.5 loperamide (IMODIUM) 2 mg cap(s) 4. Diarrhea R19.7 dicyclomine (BENTYL) 10 mg capsule ?IBS versus medication vs ? 5. IRRITABLE COLON K58.9 : dicyclomine (BENTYL) 10 mg capsule Above issues addressed with patient. Patient involved in shared decision making for management of medical issues. History and medications reviewed. Epic updated as needed Refills and/or prescriptions taken care of and meds adjusted as indicated after reviewed history, exam and labs. Health Maintenance reviewed. Updated record and/or ordered tests as recorded. Encouraged on efforts at healthy diet and regular exercise and adequate sleep. I spent a total of 34 minutes on the date of the service which included preparing to see the patient, [id number] patient care, completing clinical documentation, performing a medically appropriate examination, counseling and educating the patient/family/caregiver, and ordering medications, tests, or procedures. Jose Hyde MD documented in this encounter [facility] 05-20-2022 Miscellaneous Notes Last Office Visit: 12/06/2021 Future Office Visit: 06/29/2022 Requested Prescriptions Pending Prescriptions Disp Refills loperamide (IMODIUM) 2 mg cap(s) 100 capsule 5 Sig: Take one every morning. May repeat as needed. Date of Last Labs: 01/31/2022 documented in this encounter [facility] 04-14-2022 Miscellaneous Notes April 14, 2022 PID: [id number] Robi Olivares [address] [place] [address] Dear Ms. Olivares, We are pleased to inform you that the results of your recent breast imaging exam on 04/13/2022 are normal. Early detection of cancer is very important. We also understand recommendations regarding breast cancer screening are controversial. Please discuss with your primary care provider which strategy is best for you and whether a mammogram is right for you. Your imaging studies and report will be kept on file at [facility] as part of your permanent medical record and are available for your continuing care. Thank you for allowing us to help in meeting your health care needs. Sincerely, Dr. Pyle Interpreting Radiologist [facility] (Normal over 40) documented in this encounter [facility] 02-15-2022 Miscellaneous Notes Last seen pcp 12/06/21. Next appt is 06/29/22 Patient has been identified by name and date of : Yes Requested Prescriptions Pending Prescriptions Disp Refills buPROPion (WELLBUTRIN) 100 mg tablet 30 tablet 11 Sig: Take 1 tablet by mouth once daily. pantoprazole DR (PROTONIX) 20 mg tablet 60 tablet 11 Sig: Take 1 tablet by mouth twice daily. levothyroxine (SYNTHROID) 25 mcg tablet 90 tablet 3 Sig: Take 1 tablet by mouth daily before breakfast. RX INSTRUCTIONS: Patient aware RX will be sent to pharmacy. No need to notify patient. Mary Hodge documented in this encounter [facility] 01-31-2022 Instructions Zhanna Tracy APRN.CELLOPHANE TESTER - 01/31/2022 3:27 PM EDT Images from the original note were not included. CORONARY ARTERY DISEASE View image View image WHAT IS CORONARY ARTERY DISEASE? Coronary artery disease (CAD) is a type of heart disease caused by a problem with the blood vessels that bring blood and oxygen to the heart muscle. These arteries are called the coronary arteries. This disease increases your risk for heart attack and sudden . WHAT IS THE CAUSE? Fatty deposits called plaque may build up in blood vessels and make them narrower. The narrowing decreases the amount of blood flow to the heart. Plaque also increases the chance that blood clots may form and block a blood vessel, which can cause a heart attack or stroke. Your risk for CAD may be higher if you: Have a family history of coronary artery disease at an early age Smoke Have high blood pressure Have diabetes Are very overweight Don t get enough exercise Have high levels of blood fat--for example, high cholesterol WHAT ARE THE SYMPTOMS? Coronary artery disease may not cause any symptoms. When there are symptoms, the most common one is chest pain, called angina. You may feel: A feeling of tightness or heaviness in the chest Squeezing, pressure, or burning in the chest Angina symptoms usually: Last for 5 minutes or less and go away with rest or medicine such as nitroglycerin. Happen when the heart has to work harder, such as after a heavy meal or during physical activity or emotional stress. Angina may also happen when you are resting. Call 911 for emergency help right away if you have symptoms of a heart attack. The most common symptoms include: Chest pain or pressure, squeezing, or fullness in the center of your chest that lasts more than a few minutes, or goes away and comes back (may feel like indigestion or heartburn) Pain or discomfort in one or both arms or shoulders, or in your back, neck, jaw, or stomach Trouble breathing Breaking out in a cold sweat for no known reason If your provider has prescribed nitroglycerin for angina, pain that does not go away after taking your nitroglycerin as directed Along with these symptoms, you may also feel very tired, faint, or be sick to your stomach. HOW IS IT DIAGNOSED? Your healthcare provider will ask about your symptoms and medical history and examine you. Tests may include: Blood tests An ECG (also called an EKG or electrocardiogram), which measures and records your heartbeat. An exercise treadmill test to see how your heart works when you exercise An echocardiogram, which uses sound waves (ultrasound) to see how well your heart is pumping Angiogram, which is a series of X-rays taken after your healthcare provider injects a special dye into your blood vessels to show the [place] of the arteries and any blockage CT scan, which uses X-rays and a computer to show detailed pictures of the arteries HOW IS IT TREATED? Your treatment depends on many factors, such as your age, heart muscle function, and other health problems. At first, treatment may include diet changes and an exercise program. Your healthcare provider may prescribe medicine. Many people need to take 2 or more medicines to help prevent a heart attack or stroke. It may take several weeks or months to find the best treatment for you. Your provider may also prescribe other types of medicine to lower blood pressure, help stop chest pain, control an irregular heartbeat, help prevent blood clots, or lower blood fat (cholesterol). Your provider may recommend a daily low dose of aspirin. Taking an aspirin every day may lower your risk for a heart attack or stroke. Not everyone should take aspirin. Daily use of aspirin can cause problems, such as stomach irritation, bleeding, and hearing loss. Ask your healthcare provider if you should take aspirin and if so, how much to take. If your coronary arteries are badly blocked, you may need balloon angioplasty or bypass surgery. A balloon angioplasty opens blocked blood vessels and improves blood flow. A metal mesh device called a stent is usually left in the blood vessels to help keep them open. Bypass surgery uses blood vessels from other parts of the body, or manmade material, to make a new path around a blocked area. HOW CAN I TAKE CARE OF MYSELF? CC If you have coronary artery disease, there are things you can do to take care of yourself now and prevent problems in the future. Follow your provider's advice about activity, exercise, medicine, and follow-up visits. Lower the amount of salt, saturated and trans fats, and cholesterol in your diet. Work with your healthcare provider to control diabetes, blood pressure, or other health problems you may have. Try to keep a healthy weight. If you are overweight, talk to your provider about ways to lose weight. If you smoke, try to quit. Talk to your healthcare provider about ways to quit smoking. Ask your healthcare provider: How and when you will hear your test results How long it will take to recover What activities you should avoid and when you can return to your normal activities How to take care of yourself at home What symptoms or problems you should watch for and what to do if you have them Make sure you know when you should come back for a checkup. HOW CAN I HELP PREVENT CORONARY ARTERY DISEASE? You can prevent this disease with a heart-healthy lifestyle: Eat a healthy diet and keep a healthy weight. Stay fit with the right kind of exercise for you. Find ways to manage stress. Don t smoke. Limit your use of alcohol. Talk to your healthcare provider about your personal and family medical history and your lifestyle habits. This will help you know what you can do to lower your risk for coronary artery disease. If you have a strong family history of CAD, a healthy lifestyle may slow the start of the disease and maybe even keep you from getting it. However, you must have regular checkups to keep a close watch on the health of your heart. Developed by [employer]. Published by [employer]. Copyright 2014 [employer] and/or one of its subsidiaries. All rights reserved. documented in this encounter [facility] 01-31-2022 History of Presen t illness Narrative Chief Complaint Patient presents with: Follow Up: 6 month History of Present Illness: Robi Olivares is a 71 year old female who presents for routine follow up. She has a PMhx of of CAD (s/p remote SC with PCI to RCA 1996 and RPL 2012), R & L iliac artery stents 2012, family hx of premature CAD (father and uncles 30-40s) HTN, HLD, chronic diastolic HF, mitral valve regurgitation, carotid stenosis (mild US 2014), current smoker. She was last seen in office by myself on 08/09/2021. Her most recent ischemic evaluation 2018 was with stress testing without suggestion of ischemia. Most recent LHC was in 2012 with moderate mid RCA disease and minimal disease to other coronary arteries. She completed an echocardiogram since she was seen last which revealed largely normal structure and function, mild LVH and mild MR. She states she has been doing okay since she was seen last. She is planned for an evaluation at [facility] for an upcoming hernia repair surgery. She reports she has been more intentionally active walking her newly adopted beagle. She also does routine housework. She is able to carry laundry up and down flight of stairs several times without any cardiac complaints. She continues to express some stressors and anxiety in her life. She is concerned about her 's health. We reviewed cardiac risk factors and modifications. Unfortunately, she continues to smoke. She reports taking medications as prescribed. PAST MEDICAL HISTORY Diagnosis Date Acute gastritis without mention of hemorrhage Acute myocardial infarction of other specified sites, episode of care unspecified Myocardial Infarction--DR WHITE Adenomatous colon polyp TA on Jun 2015 colonoscopy (Dr. 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 Davison Severe vulvar dysplasia Vitamin D Deficiency 08/20/2009 PAST SURGICAL HISTORY Procedure Laterality Date COLONOSCOPY 09/06/02 Normal - [place] COLONOSCOPY FLX DX W/COLLJ SPEC WHEN PFRMD 06/24/15 Colonoscopy COLONOSCOPY FLX DX W/COLLJ SPEC WHEN PFRMD 03/14/2017 Colonoscopy COLONOSCOPY FLX DX W/COLLJ SPEC WHEN PFRMD 03/19/2020 Colonoscopy COLONOSCOPY W/BIOPSY SINGLE/MULTIPLE 04/20/10 DILATION & CURETTAGE DX&/THER NONOBSTETRIC 1972 Dilation & curettage EGD 08/30/02 small hiatal hernia - [place] EGD TRANSORAL BIOPSY SINGLE/MULTIPLE 04/20/10 ESOPHAGOGASTRODUODENOSCOPY TRANSORAL DIAGNOSTIC 06/24/15 EGD PAST SURGICAL HISTORY OF 05/1973 left knee surgery cartilage removed from knee PAST SURGICAL HISTORY OF 05/19/1997 Stent inserted right coronary artery PAST SURGICAL HISTORY OF 09/2002 Mirco left hand surgery PAST SURGICAL HISTORY OF 2008 thumb surgery left hand PAST SURGICAL HISTORY OF 2007 left knee surgery PAST SURGICAL HISTORY OF Reoperation to release adhesions REVSC OPN/PRQ ILIAC ART W/STNT PLMT & ANGIOPLSTY 06-05-13 right leg TEAEC W/WO PATCH GRAFT COMMON FEMORAL 08-15-13 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 FOREST OFFICER TEAEC W/WO PATCH GRAFT ILIOFEMORAL Left 02-01-16 TOTAL ABDOMINAL HYSTERECT W/WO RMVL TUBE OVARY 1976 Hysterectomy, DOROTHY, BSO;Fibroids/infection VULVECTOMY SIMPLE PARTIAL 10/21/2010 Partial simple posterior vulvectomy and anterior vulvar biopsy FAMILY HISTORY Problem Relation Age of Onset Breast Cancer Mother Alzheimer's Disease Mother Heart Mother Colon Cancer Mother was diagnosed around late 60's Heart Father SC at 36 yo; when mom was 3 months other (bladder cancer) Brother Diabetes Brother Stroke Brother 1/2 brother Heart Brother diabetes; had 4 vessel CABG 09/2011; bladder cancer Coronary Artery Disease Paternal Uncle all 5 uncles had SC's in their early 40's Coronary Artery Disease Paternal Uncle Coronary Artery Disease Paternal Uncle Coronary Artery Disease Paternal Uncle Coronary Artery Disease Paternal Uncle Social History Tobacco Use Smoking status: Some Days Packs/day: 0.25 Years: 30.00 Pack years: 7.50 Types: Cigarettes Last attempt to quit: 06/19/2002 Years since quittin.6 Smokeless tobacco: Never Vaping Use Vaping Use: Never used Substance Use Topics Alcohol use: Yes Comment: socially Drug use: No Comment: Used marjiana in the past ALLERGIES Allergen Reactions Codeine Hives Darvon [Propoxyphen* Hives Morphine Other: See Comments Made tongue swell Penicillins Anaphylaxis Simvastatin Other: See Comments elevated LFTS; had tolerated Lipitor for years without problem Medications: Current Outpatient Medications Medication Sig Dispense Refill atorvastatin (LIPITOR) 80 mg tablet Take 1 tablet by mouth daily at bedtime. For cholesterol. 30 tablet 11 ferrous sulfate 325 mg (65 mg iron) tablet Take 1 tablet by mouth every other day. 45 tablet 3 valACYclovir (VALTREX) 500 mg tablet Take 1 tablet by mouth once daily. 30 tablet 11 sertraline (ZOLOFT) 100 mg tablet Take 1 tablet by mouth once daily. 90 tablet 3 clopidogrel (PLAVIX) 75 mg tablet Take 1 tablet by mouth once daily. 30 tablet 4 amLODIPine (NORVASC) 10 mg tablet Take 1 tablet by mouth once daily. 90 tablet 3 atenolol (TENORMIN) 25 mg tablet Take 1 tablet by mouth once daily. 90 tablet 1 levothyroxine (SYNTHROID) 25 mcg tablet Take 1 tablet by mouth daily before breakfast. 90 tablet 3 buPROPion (WELLBUTRIN) 100 mg tablet Take 1 tablet by mouth once daily. [address] (PROTONIX) 20 mg tablet Take 1 tablet by mouth twice daily. 60 tablet 11 nystatin (MYCOSTATIN) powder Apply 1 application to affected area three times daily. 1 Bottle 0 nitroglycerin sublingual (NITROQUICK) 0.4 mg SL tablet Dissolve 1 tablet under the tongue as needed. DISSOLVE ON TONGUE FOR CHEST PAIN. IF NO PAIN RELIEF, CALL 911 25 tablet 3 cholecalciferol, vitamin D3, 100 mcg (4,000 unit) cap Take by mouth. aspirin, enteric coated (ASPIRIN, ENTERIC COATED) 81 mg EC tablet Take 1 tablet by mouth once daily. 0 Current Facility-Administered Medications Medication Dose Route Frequency Provider Last Rate Last Admin perflutren lipid microspheres 1.3 mL in NaCl (PF) 0.9% 10 mL injection (DEFINITY) INTRAVENOUS DIRECTED PRN Zhanna Tracy APRN.DEVIN sodium chloride 0.9 % (flush) 10 mL (BD POSIFLUSH) 10 mL INTRAVENOUS DIRECTED PRN Zhanna Tracy, FRONT CLERK.CELLOPHANE TESTER Review of Systems Constitutional: Negative for chills, diaphoresis, fever, malaise/fatigue and weight loss. HENT: Negative for congestion, ear pain, nosebleeds, sinus pain and sore throat. Eyes: Negative for pain. Respiratory: Negative for cough, shortness of breath and wheezing. Cardiovascular: Negative for chest pain, palpitations and leg swelling. Gastrointestinal: Negative for abdominal pain, blood in stool and melena. Genitourinary: Negative for hematuria. Musculoskeletal: Negative for falls. Neurological: Negative for dizziness, tingling, sensory change, speech change, focal weakness, loss of consciousness, weakness and headaches. Endo/Heme/Allergies: Does not bruise/bleed easily. Psychiatric/Behavioral: Negative for depression, memory loss and suicidal ideas. The patient is not nervous/anxious and does not have insomnia. Physical Examination: Vitals:BP 138/72 Pulse 70 Wt 124 lb (56.2kg) Last 2 Encounter Wt Readings: Date: Wt: 12/06/2021 122 lb (55.3 kg) 11/02/2021 127 lb 6.4 oz (57.8 kg) Physical Exam HENT: Head: Normocephalic. Eyes: Pupils: Pupils are equal, round, and reactive to light. Cardiovascular: Rate and Rhythm: Normal rate and regular rhythm. Pulses: Radial pulses are 2+ on the right side and 2+ on the left side. Dorsalis pedis pulses are 2+ on the right side and 2+ on the left side. Heart sounds: Normal heart sounds, S1 normal and S2 normal. Pulmonary: Effort: Pulmonary effort is normal. No accessory muscle usage or respiratory distress. Breath sounds: Normal breath sounds. Abdominal: General: Bowel sounds are normal. Palpations: Abdomen is soft. Musculoskeletal: General: Normal range of motion. Cervical back: Normal range of motion. Right lower leg: No edema. Left lower leg: No edema. Skin: General: Skin is warm and dry. Neurological: Mental Status: She is alert and oriented to person, place, and time. Gait: Gait is intact. Psychiatric: Mood and Affect: Affect normal. Cognition and Memory: Memory normal. Judgment: Judgment normal. Most Recent Cardiac Testing Echo 09/07/2021 CONCLUSIONS: - Technically difficult exam due to body habitus. - Exam indication: CAD - The left ventricle is normal in size. There is mild left ventricular hypertrophy. Left ventricular systolic function is normal. EF = 69 5% (2D biplane) Grade I left ventricular diastolic dysfunction. - The right ventricle is normal in size. Right ventricular systolic function is normal. - Mild mitral regurgitation. - The patient has not had a prior CC echocardiographic exam for comparison. Left heart cath 2012 left main: no significant disease LAD: minimal disease left circumflex: small nondominant minimal disease RCA 85% mid, patent stent Assessment and Plan: CAD -s/p remote SC with PCI to RCA 1996 and RPL 2012 -without symptoms concerning for angina -EF 69% -continue ASA, plavix, statin, atenolol -encouraged routine activity and heart healthy diet for risk factor modification HTN -138/72 -Continue current medication(s) -Encouraged dietary sodium restriction/DASH diet -Recommended regular aerobic exercise. -Recommend home blood pressure monitoring, to bring results in on next visit -Goal of BP <130/80 Chronic diastolic HF -EF 69% -grade I left ventricular diastolic dysfunction -continue -recommended heart healthy, 2g low sodium diet, daily weights Mitral valve regurgitation -mild on recent echocardiogram HLD -lipid panel 01/2022 LDL 78 -continue Lipitor 80 mg Carotid stenosis -mild US 2014 -continue ASA, statin Tobacco use -Encouraged cessation -Physiologic and physical aspects of tobacco addiction as well as strategies for quitting were discussed. -Counseling was given focusing on the harmful effects of this addiction especially given the patient's medical condition(s) which will be worsened because of the chemicals in tobacco. Cardiac clearance Has upcoming hernia repair Patient is able to complete > 4 METs of activity without anginal complaints. She is of likely of low estimated risk of myocardial infarction, pulmonary edema, ventricular fibrillation, cardiac arrest or complete heart block. This was reviewed with the patient. She may hold plavix 5 days prior to any invasive procedures Follow up in 6 months. Patient to call with any issues or concerns prior to then. Electronically signed by Zhanna Tracy APRN.CNP on January 31, 2022, 1:49 PM documented in this encounter [facility] 11-19-2021 Miscellaneous Notes Last seen pcp 05/05/21. Next appt arranged 12/06/21. Patient has been identified by name and date of : Yes Pending Prescriptions Disp Refills SERTRALINE 100 MG TABLET 90 tablet 3 Sig: Take 1 tablet by mouth once daily. BRETT: No CLOPIDOGREL 75 MG TABLET 30 tablet 4 Sig: Take 1 tablet by mouth once daily. BRETT: No RX INSTRUCTIONS: Patient aware RX will be sent to pharmacy. No need to notify patient. Chitra Diop Pss documented in this encounter [facility] 11-02-[address] Scott office, was transferred to scheduling, patient has appointment to see Dr Steven Scott on 01/24/22 at 9:00 am. Patient was to see Dr Steven Scott, at [facility], per telephone note 10/16/21. Needed order placed for referral and and to be scheduled. Patient has appointment tomorrow 11/02/21, for pain at times on left side, with Dr Plascencia, documented in this encounter [facility] 10-19-2021 Miscellaneous Notes Please let the patient know that I contacted the hernia specialist at [facility] and they agree that given her complicated past and open procedure would be the preference. I also feel that the type of procedure that she requires called a open TAR will be better performed by the experts at [facility]. I will forward my note to Dr. Steven Scott and his office should contact the patient for follow-up. Per Dr Plascencia Called patient updated on above note from Dr Thais Head LPN Please let the patient know that I contacted the hernia specialist at [facility] and they agree that given her complicated past and open procedure would be the preference. I also feel that the type of procedure that she requires called a open TAR will be better performed by the experts at [facility]. I will forward my note to Dr. Steven Scott and his office should contact the patient for follow-up. documented in this encounter [facility] 10-11-2021 History of Presen t illness Narrative Radiology Service Progress Note PATIENT NAME: Robi Olivares DATE OF SERVICE: October 11, 2021 TIME: 4:01 PM PATIENT IDENTITY VERIFICATION COMPLETED USING TWO (2) IDENTIFIERS: Name and Date of confirmed by patient verbally. FALL SCREENING: Has the patient had 2 falls in the last year or 1 fall with injury or currently using an Ambulatory Assistive Device (Walker, Cane, Wheelchair, Crutches, etc.)? No PATIENT GENDER DATA: Female. status: : No status: NO. PATIENT RELEVANT IMPLANT DATA REVIEWED: Not Applicable RADIOLOGY DEPARTMENT: CT; Exam(s) Completed: Abdomen/Pelvis PERIPHERAL IV DATA: Not applicable SIGNED BY: RT To(R) October 11, 2021 4:01 PM documented in this encounter [facility] 09-24-2021 Miscellaneous Notes Will assume patient wants to stay on amlodipine that was last prescribed by cardiology The following approved medication requests have been transmitted electronically. Signed Prescriptions Disp Refills amLODIPine (NORVASC) 10 mg tablet 90 tablet 3 Sig: Take 1 tablet by mouth once daily. BRETT: No Authorizing Provider: JOSE HYDE atenolol (TENORMIN) 25 mg tablet 90 tablet 1 Sig: Take 1 tablet by mouth once daily. BRETT: No Authorizing Provider: JOSE HYDE MD Patient has been identified by name and date of : Yes Patient phones for refill(s): Pending Prescriptions Disp Refills AMLODIPINE 10 MG TABLET 30 tablet 1 Sig: Take 1 tablet by mouth once daily. BRETT: No ATENOLOL 25 MG TABLET 90 tablet 1 Sig: Take 1 tablet by mouth once daily. BRETT: No Patient reports she will be out of medication in 2 days. Date of last office visit with pcp: 05-05-21. Next appt: 12-06-21 Last 2 Encounter Wt Readings: Date: Wt: 08/09/2021 59 kg (130 lb) 12/17/2020 60.3 kg (133 lb) Previous labs/tests for medication: Blood Pressure: BUN (mg/dL) Date Value 05/28/2021 16 Sodium (mmol/L) Date Value 05/28/2021 140 Last 1 Encounter BP Readings: Date: BP: 08/09/2021 150/80 Please advise. Thank you. Antwon Dennison RN documented in this encounter [facility] 09-10-2021 Miscellaneous Notes Pt notified of below results. Verbalized understanding. No further questions or concerns. Left message for to call [facility] for test results. [facility] phone number provided. Zhanna Villasenor LPN ----- Message from Isabela Dupree APRN.CELLOPHANE TESTER sent at 09/09/2021 2:00 PM EDT ----- Please call the patient and report echo results revealed preserved LV Function 69% and stable mild LVH. Patient has mild MR. Recommend continue current medical therapy. Thanks, Isabela Dupree APRN.CELLOPHANE TESTER documented in this encounter [facility] 06-24-2015 History of Past i llness Narrative Problem Noted Date Resolved Date Iron deficiency anemia due to chronic blood loss 06/24/2015 06/24/2015 Family history of colon cancer 06/24/2015 0 06/24/2015 Acute myocardial infarction of other specified sites, episode of care unspecified 09/12/2016 Overview: Myocardial Infarction documented as of this encounter (statuses as of 09/17/2021) [facility] History of Past illness Narrative* Problem Noted Date Resolved Date Iron deficiency anemia due to chronic blood loss 06/24/2015 06/24/2015 Family history of colon cancer 06/24/2015 0 06/24/2015 Acute myocardial infarction of other specified sites, episode of care unspecified 09/12/2016 Overview: Myocardial Infarction documented as of this encounter (statuses as of 09/24/2021) [facility] History of Past illness Narrative* Problem Noted Date Resolved Date Iron deficiency anemia due to chronic blood loss 06/24/2015 06/24/2015 Family history of colon cancer 06/24/2015 0 06/24/2015 Acute myocardial infarction of other specified sites, episode of care unspecified 09/12/2016 Overview: Myocardial Infarction documented as of this encounter (statuses as of 10/12/2021) [facility] History of Past illness Narrative* Problem Noted Date Resolved Date Iron deficiency anemia due to chronic blood loss 06/24/2015 06/24/2015 Family history of colon cancer 06/24/2015 0 06/24/2015 Acute myocardial infarction of other specified sites, episode of care unspecified 09/12/2016 Overview: Myocardial Infarction documented as of this encounter (statuses as of 10/12/2021) [facility] History of Past illness Narrative* Problem Noted Date Resolved Date Iron deficiency anemia due to chronic blood loss 06/24/2015 06/24/2015 Family history of colon cancer 06/24/2015 0 06/24/2015 Acute myocardial infarction of other specified sites, episode of care unspecified 09/12/2016 Overview: Myocardial Infarction documented as of this encounter (statuses as of 10/19/2021) [facility] of Past illness Narrative* Problem Noted Date Resolved Date Iron deficiency anemia due to chronic blood loss 06/24/2015 06/24/2015 Family history of colon cancer 06/24/2015 0 06/24/2015 Acute myocardial infarction of other specified sites, episode of care unspecified 09/12/2016 Overview: Myocardial Infarction documented as of this encounter (statuses as of 11/19/2021) [facility] of Past illness Narrative* Problem Noted Date Resolved Date Iron deficiency anemia due to chronic blood loss 06/24/2015 06/24/2015 Family history of colon cancer 06/24/2015 0 06/24/2015 Acute myocardial infarction of other specified sites, episode of care unspecified 09/12/2016 Overview: Myocardial Infarction documented as of this encounter (statuses as of 2021) [facility] of Past illness Narrative* Problem Noted Date Resolved Date Iron deficiency anemia due to chronic blood loss 06/24/2015 06/24/2015 Family history of colon cancer 06/24/2015 0 06/24/2015 Acute myocardial infarction of other specified sites, episode of care unspecified 09/12/2016 Overview: Myocardial Infarction documented as of this encounter (statuses as of 02/01/2022) [facility] of Past illness Narrative* Problem Noted Date Resolved Date Iron deficiency anemia due to chronic blood loss 06/24/2015 06/24/2015 Family history of colon cancer 06/24/2015 0 06/24/2015 Acute myocardial infarction of other specified sites, episode of care unspecified 09/12/2016 Overview: Myocardial Infarction documented as of this encounter (statuses as of 02/15/2022) [facility] of Past illness Narrative* Problem Noted Date Resolved Date Iron deficiency anemia due to chronic blood loss 06/24/2015 06/24/2015 Family history of colon cancer 06/24/2015 0 06/24/2015 Acute myocardial infarction of other specified sites, episode of care unspecified 09/12/2016 Overview: Myocardial Infarction documented as of this encounter (statuses as of 04/04/2022) [facility] of Past illness Narrative* Problem Noted Date Resolved Date Iron deficiency anemia due to chronic blood loss 06/24/2015 06/24/2015 Family history of colon cancer 06/24/2015 0 06/24/2015 Acute myocardial infarction of other specified sites, episode of care unspecified 09/12/2016 Overview: Myocardial Infarction documented as of this encounter (statuses as of 04/16/2022) [facility] of Past illness Narrative* Problem Noted Date Resolved Date Iron deficiency anemia due to chronic blood loss 06/24/2015 06/24/2015 Family history of colon cancer 06/24/2015 0 06/24/2015 Acute myocardial infarction of other specified sites, episode of care unspecified 09/12/2016 Overview: Myocardial Infarction documented as of this encounter (statuses as of 05/20/2022) [facility] of Past illness Narrative* Problem Noted Date Resolved Date Iron deficiency anemia due to chronic blood loss 06/24/2015 06/24/2015 Family history of colon cancer 06/24/2015 0 06/24/2015 Acute myocardial infarction of other specified sites, episode of care unspecified 09/12/2016 Overview: Myocardial Infarction documented as of this encounter (statuses as of 07/26/2022) [facility] of Past illness Narrative* Problem Noted Date Resolved Date Iron deficiency anemia due to chronic blood loss 06/24/2015 06/24/2015 Family history of colon cancer 06/24/2015 0 06/24/2015 Acute myocardial infarction of other specified sites, episode of care unspecified 09/12/2016 Overview: Myocardial Infarction documented as of this encounter (statuses as of 07/27/2022) [facility] of Past illness Narrative* Problem Noted Date Resolved Date Iron deficiency anemia due to chronic blood loss 06/24/2015 06/24/2015 Family history of colon cancer 06/24/2015 0 06/24/2015 Acute myocardial infarction of other specified sites, episode of care unspecified 09/12/2016 Overview: Myocardial Infarction documented as of this encounter (statuses as of 07/29/2022) [facility] of Past illness Narrative* Problem Noted Date Resolved Date Iron deficiency anemia due to chronic blood loss 06/24/2015 06/24/2015 Family history of colon cancer 06/24/2015 0 06/24/2015 Acute myocardial infarction of other specified sites, episode of care unspecified 09/12/2016 Overview: Myocardial Infarction documented as of this encounter (statuses as of 08/23/2022) [facility] of Past illness Narrative* Problem Noted Date Resolved Date Iron deficiency anemia due to chronic blood loss 06/24/2015 06/24/2015 Family history of colon cancer 06/24/2015 0 06/24/2015 Acute myocardial infarction of other specified sites, episode of care unspecified 09/12/2016 Overview: Myocardial Infarction documented as of this encounter (statuses as of 08/26/2022) [facility] of Past illness Narrative* Problem Noted Date Resolved Date Iron deficiency anemia due to chronic blood loss 06/24/2015 06/24/2015 Family history of colon cancer 06/24/2015 0 06/24/2015 Acute myocardial infarction of other specified sites, episode of care unspecified 09/12/2016 Overview: Myocardial Infarction documented as of this encounter (statuses as of 09/19/2022) [facility] of Past illness Narrative* Problem Noted Date Resolved Date Iron deficiency anemia due to chronic blood loss 06/24/2015 06/24/2015 Family history of colon cancer 06/24/2015 0 06/24/2015 Acute myocardial infarction of other specified sites, episode of care unspecified 09/12/2016 Overview: Myocardial Infarction documented as of this encounter (statuses as of 10/11/2022) [facility] of Past illness Narrative* Problem Noted Date Resolved Date Iron deficiency anemia due to chronic blood loss 06/24/2015 06/24/2015 Family history of colon cancer 06/24/2015 0 06/24/2015 Acute myocardial infarction of other specified sites, episode of care unspecified 09/12/2016 Overview: Myocardial Infarction documented as of this encounter (statuses as of 10/12/2022) [facility] of Past illness Narrative* Problem Noted Date Resolved Date Iron deficiency anemia due to chronic blood loss 06/24/2015 06/24/2015 Family history of colon cancer 06/24/2015 0 06/24/2015 Acute myocardial infarction of other specified sites, episode of care unspecified 09/12/2016 Overview: Myocardial Infarction documented as of this encounter (statuses as of 12/22/2022) [facility]2016 History of Past illness Narrative* Problem Noted Date Diagnosed Date Resolved Date Iron deficiency anemia due t o chronic blood loss 06/24/2015 06/24/2015 Family history of colon cancer 06/24/2015 06/24/2015 Acute myocardial infarction of other specified sites, episode of care unspecified 09/12/2016 Overview: Myocardial Infarction documented as of this encounter (statuses as of 01/25/2023) [facility] History of Past illness Narrative* Problem Noted Date Diagnosed Date Resolved Date Iron deficiency anemia due t o chronic blood loss 06/24/2015 06/24/2015 Family history of colon cancer 06/24/2015 06/24/2015 Acute myocardial infarction of other specified sites, episode of care unspecified 09/12/2016 Overview: Myocardial Infarction documented as of this encounter (statuses as of 04/19/2023) [facility] History of Past illness Narrative* Problem Noted Date Diagnosed Date Resolved Date Iron deficiency anemia due t o chronic blood loss 06/24/2015 06/24/2015 Family history of colon cancer 06/24/2015 06/24/2015 Acute myocardial infarction of other specified sites, episode of care unspecified 09/12/2016 Overview: Myocardial Infarction documented as of this encounter (statuses as of 04/29/2023) [address]06-2016 History of Past illness Narrative* Problem Noted Date Diagnosed Date Resolved Date Iron deficiency anemia due t o chronic blood loss 06/24/2015 06/24/2015 Family history of colon cancer 06/24/2015 06/24/2015 Acute myocardial infarction of other specified sites, episode of care unspecified 09/12/2016 Overview: Myocardial Infarction documented as of this encounter (statuses as of 04/29/2023) [facility] History of Past illness Narrative* Problem Noted Date Diagnosed Date Resolved Date Iron deficiency anemia due t o chronic blood loss 06/24/2015 06/24/2015 Family history of colon cancer 06/24/2015 06/24/2015 Acute myocardial infarction of other specified sites, episode of care unspecified 09/12/2016 Overview: Myocardial Infarction documented as of this encounter (statuses as of 05/02/2023) [facility] History of Past illness Narrative* Problem Noted Date Diagnosed Date Resolved Date Iron deficiency anemia due t o chronic blood loss 06/24/2015 06/24/2015 Family history of colon cancer 06/24/2015 06/24/2015 Acute myocardial infarction of other specified sites, episode of care unspecified 09/12/2016 Overview: Myocardial Infarction documented as of this encounter (statuses as of 05/03/2023) [facility] History of Past illness Narrative* Problem Noted Date Diagnosed Date Resolved Date Iron deficiency anemia due t o chronic blood loss 06/24/2015 06/24/2015 Family history of colon cancer 06/24/2015 06/24/2015 Acute myocardial infarction of other specified sites, episode of care unspecified 09/12/2016 Overview: Myocardial Infarction documented as of this encounter (statuses as of 08/18/2023) [facility] History of Past illness Narrative* Problem Noted Date Diagnosed Date Resolved Date Iron deficiency anemia due t o chronic blood loss 06/24/2015 06/24/2015 Family history of colon cancer 06/24/2015 06/24/2015 Acute myocardial infarction of other specified sites, episode of care unspecified 09/12/2016 Overview: Myocardial Infarction documented as of this encounter (statuses as of 09/19/2023) [facility] Diagnosis Abdominal mass, unspecified abdominal location [facility] this [facility] Diagnosis Coronary artery disease involving picayune coronary artery of picayune heart without angina pectoris documented in this [facility] Diagnosis Incisional hernia, without obstruction or gangrene- Primary Incisional hernia without mention of obstruction or gangrene [facility] Diagnosis Coronary artery disease involving picayune coronary artery of picayune heart without angina pectoris- Primary Mixed hyperlipidemia Essential hypertension Unspecified essential hypertension Chronic diastolic CHF (congestive heart failure) (HCC) Chronic diastolic heart failure Mitral valve insufficiency, unspecified etiology Tobacco use Tobacco use disorder [facility] this [facility] Diagnosis Acquired hypothyroidism Unspecified hypothyroidism [facility] Diagnosis Encounter for screening mammogram for breast cancer [facility] this [facility] Diagnosis Loose stools Abnormal feces [facility] this [facility] Diagnosis Diarrhea IRRITABLE COLON Irritable bowel syndrome [facility] this [facility] Diagnosis Coronary artery disease involving picayune coronary artery of picayune heart without angina pectoris Recurrent cold sores Herpes simplex without mention of complication Loose stools Abnormal feces Diarrhea IRRITABLE COLON Irritable bowel syndrome [facility] Diagnosis 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 (HCC)- Primary Coronary artery disease involving picayune coronary artery of picayune heart without angina pectoris Mixed hyperlipidemia Essential hypertension Unspecified essential hypertension Chronic diastolic CHF (congestive heart failure) (HCC) Chronic diastolic heart failure PAD (peripheral artery disease) (HCC) Peripheral vascular disease, unspecified Tobacco use Tobacco use disorder [facility] this [facility] Diagnosis Screening for ischemic heart disease- Primary [facility] this [facility] Diagnosis Encounter for screening mammogram for breast cancer- Primary [facility] this [facility] Diagnosis Essential hypertension- Primary Unspecified essential hypertension Vitamin D deficiency Unspecified vitamin D deficiency Elevated fasting glucose Impaired fasting glucose Mixed hyperlipidemia Acquired hypothyroidism Unspecified hypothyroidism Bipolar affective disorder, remission status unspecified (HCC) documented [facility] this encounter [facility] Diagnosis Encounter for screening mammogram for breast cancer documented in this encounter [facility] note* Diagnosis Weight loss- Primary Loss of weight Anxiety Anxiety state, unspecified Stress at home Unspecified family circumstance documented in this encounter [facility] note* Diagnosis Acquired hypothyroidism Unspecified hypothyroidism Loose stools Abnormal feces documented in this encounter [facility] note* Diagnosis Chronic diastolic CHF (congestive heart failure) (HCC)- Primary Chronic diastolic heart failure Acquired hypothyroidism Unspecified hypothyroidism Anxiety Anxiety state, unspecified Stress at home Unspecified family circumstance Weight loss Loss of weight Mixed hyperlipidemia Iron deficiency anemia, unspecified iron deficiency anemia type Vitamin D deficiency Unspecified vitamin D deficiency Encounter for therapeutic drug monitoring documented in this encounter [facility] note* Diagnosis Anxiety Anxiety state, unspecified Weight loss Loss of weight documented in this encounter [facility] note* Diagnosis Acquired hypothyroidism Unspecified hypothyroidism Loose stools Abnormal feces documented in this encounter [facility] for referral (narrative)* Diagnostic Procedure Only (Routine) - Pending Review Specialty Diagnoses / Procedures Referred By Velma villalta Referred To Contact [facility] Diagnoses Encounter for screening mammogram for breast cancer Procedures JG SCREENING SCREENING MAMMOGRAPHY BI 2-VIEW BREAST INC CAD Jose Hyde MD [address] [place] [address] [facility] [address] [place] [address] Referral ID Status Reason Start Date Expiration Date Visits Requested Visits Authorized [id number] Pending Review Auto-Generat ed Referral 2 04/29/2023 1 1 [facility] for referral (narrative)* Diagnostic Procedure Only (Routine) - Authorized Specialty Diagnoses / Procedures Referred By Velma villalta Referred To Contact MOLECULAR & FUNCTIONAL IMAGING Diagnoses 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 (HCC) Procedures NM CARDIAC PERF STRESS/PHARM MYOCARDIAL SPECT MULTIPLE STUDIES Zhanna Tracy, FRONT CLERK.CELLOPHANE TESTER [address] [place] [address] [facility] [address] [place] [address] Referral ID Status Reason Start Date Expiration Date Visits Requested Visits Authorized [id number] Authorized Auto-Generat ed Referral 08/22/2022 09/21/2023 1 1 * Outpatient Procedure (Routine) - Closed Specialty Diagnoses / Procedures Referred By Velma t Referred To Contact [facility] Diagnoses Coronary artery disease involving picayune coronary artery of picayune heart without angina pectoris Mixed hyperlipidemia Essential hypertension Procedures ECG COMPLETE ECG ROUTINE ECG W/LEAST 12 LDS W/I&R Zhanna Tracy APRN.CELLOPHANE TESTER [address] [place] [address] [facility] [place] [address] [place] [address] Referral ID Status Reason Start Date Expiration Date V isits Requested Visits Authorized [id number] Closed Auto-Generate d Referral 08/18/2022 08/18/2023 1 1 [facility] Diagnostic Procedure Only (Routine) - Authorized Specialty Diagnoses / Procedures Referred By Velma villalta Referred To Contact [facility] Diagnoses Encounter for screening mammogram for breast cancer Procedures JG SCREENING SCREENING MAMMOGRAPHY BI 2-VIEW BREAST INC CAD Irene Wheatley APRN.CNP [address] [place] [address] [facility] [address] [place] [address] Referral ID Status Reason Start Date Expiration Date Visits Requested Visits Authorized [id number] Authorized Auto-Generat ed Referral 04/19/2023 05/17/2024 1 1 [facility] for visit Narrative* Diagnostic Procedure Only (Routine) - Closed Specialty Diagnoses / Procedures Referred By Velma villalta Referred To Contact [facility]LECULAR [facility] FUNCTIONAL IMAGING Diagnoses 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 (HCC) Procedures NM CARDIAC PERF STRESS/PHARM MYOCARDIAL SPECT MULTIPLE STUDIES Zhanna Tracy APRN.CNP [address] [place] [address] [facility] [address] [place] [address] Referral ID Status Reason Start Date Expiration Date V isits Requested Visits Authorized [id number] Closed Auto-Generate d Referral 08/22/2022 09/21/2023 1 1 [facility] N[facility]* Diagnostic Procedure Only (Routine) - Closed Specialty Diagnoses / Procedures Referred By Velma villalta Referred To Contact [facility] Diagnoses Encounter for screening mammogram for breast cancer Procedures JG SCREENING SCREENING MAMMOGRAPHY BI 2-VIEW BREAST INC CAD Irene Wheatley, FRONT CLERK.CELLOPHANE TESTER [address] [place] [address] [facility] [address] [place] [address] Referral ID Status Reason Start Date Expiration Date V isits Requested Visits Authorized [id number] Closed Auto-Generate d Referral 04/19/2023 05/17/2024 1 1 [facility] Summary Purpose Family History No Family History Records FoundNo Family History Records FoundNo Family History Records FoundNo Family History Records FoundNo Family History Records Found Advance Directives Documents on File Type Date Recorded 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 Advance Directive(s) Advance Directive(s) 03/19/2020 10:10 AM Advance Directive(s) 10/14/2010 5:23 PM Documents on File Type Date Recorded 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 Advance Directive(s) Advance Directive(s) 03/19/2020 10:10 AM Advance Directive(s) 10/14/2010 5:23 PM Documents on File Type Date Recorded 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 Advance Directive(s) 10/14/2010 5:23 PM Documents on File Type Date Recorded 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 Advance Directive(s) 10/14/2010 5:23 PM Reason for Referral Specialty Diagnoses / Procedures Referred By Velma villalta Referred To Contact CT IMAGING Diagnoses Abdominal mass, unspecified abdominal location Procedures CT ABD/PEL WO IVCON CT ABD & PELVIS W/O CONTRAST Marshall Plascencia MD [address] [place] [address] Ct Imaging Referral ID Status Reason Start Date Expiration Date V isits Requested Visits Authorized [id number] Closed Auto-Generate d Referral 10/05/2021 11/04/2022 1 1 Specialty Diagnoses / Procedures Referred By Contac t Referred To Contact General Surgery Diagnoses Incisional hernia, without obstruction or gangrene Procedures CONSULT TO GENERAL SURGERY OFFICE/OUTPATIENT [facility] HIGH MDM 60-74 MINUTES Marshall Plascencia MD [address] [place] [address] Steven Scott MD [address] [place] [address] Referral ID Status Reason Start Date Expiration Date Visits Requested Visits Authorized [id number] Authorized PCP Requested Referral 11/01/2021 11/01/2022 1 1 Specialty Diagnoses / Procedures Referred By Contac t Referred To Contact Diagnoses Diarrhea Irritable bowel syndrome Marleni Pyle, ALEJANDRA.[employer] SUPERVISOR [address] [place] [address] Referral ID Status Reason Start Date Expiration Date V isits Requested Visits Authorized [id number] Authorized 06/19/2022 07/26/2023 1 1 Additional Source Comments INFORMATION SOURCE (unrecogn ized section and content) DATE CREATED AUTHOR [facility]/05/2017 [facility] DATE CREATED AUTHOR AUTHOR'S ORGANIZ ATION 04/08/2020 [facility] DATE CREATED AUTHOR AUTHOR'S ORGANIZ ATION [facility]/11/2020 [facility] DATE CREATED AUTHOR AUTHOR'S ORGANIZ ATION 09/20/2021 [facility] DATE CREATED AUTHOR AUTHOR'S ORGANIZ ATION 03/15/2024 [facility] Source Comments (unrecognize d section and content) In the event this informatio n is protected by the Federal Confidentiality of Alcohol and Drug Abuse Patient Records regulations: The Federal rules restrict any use of the information to criminally investigate or prosecute any alcohol or drug abuse patient.[facility] the event this information is protected by the Federal Confidentiality of Alcohol and Drug Abuse Patient Records regulations: The Federal rules restrict any use of the information to criminally investigate or prosecute any alcohol or drug abuse patient.[facility] the event this information is protected by the Federal Confidentiality of Alcohol and Drug Abuse Patient Records regulations: The Federal rules restrict any use of the information to criminally investigate or prosecute any alcohol or drug abuse patient.[facility] the event this information is protected by the Federal Confidentiality of Alcohol and Drug Abuse Patient Records regulations: The Federal rules restrict any use of the information to criminally investigate or prosecute any alcohol or drug abuse patient.[facility]In the event this information is protected by the Federal Confidentiality of Alcohol and Drug Abuse Patient Records regulations: The Federal rules restrict any use of the information to criminally investigate or prosecute any alcohol or drug abuse patient.[facility]In the event this information is protected by the Federal Confidentiality of Alcohol and Drug Abuse Patient Records regulations: The Federal rules restrict any use of the information to criminally investigate or prosecute any alcohol or drug abuse patient.[facility]In the event this information is protected by the Federal Confidentiality of Alcohol and Drug Abuse Patient Records regulations: The Federal rules restrict any use of the information to criminally investigate or prosecute any alcohol or drug abuse patient.[facility]In the event this information is protected by the Federal Confidentiality of Alcohol and Drug Abuse Patient Records regulations: The Federal rules restrict any use of the information to criminally investigate or prosecute any alcohol or drug abuse patient.[facility] CenterIn the event this information is protected by the Federal Confidentiality of Alcohol and Drug Abuse Patient Records regulations: The Federal rules restrict any use of the information to criminally investigate or prosecute any alcohol or drug abuse patient.[facility]In the event this information is protected by the Federal Confidentiality of Alcohol and Drug Abuse Patient Records regulations: The Federal rules restrict any use of the information to criminally investigate or prosecute any alcohol or drug abuse patient.[facility] CenterIn the event this information is protected by the Federal Confidentiality of Alcohol and Drug Abuse Patient Records regulations: The Federal rules restrict any use of the information to criminally investigate or prosecute any alcohol or drug abuse patient.[facility] CenterIn the event this information is protected by the Federal Confidentiality of Alcohol and Drug Abuse Patient Records regulations: The Federal rules restrict any use of the information to criminally investigate or prosecute any alcohol or drug abuse patient.[facility] CenterIn the event this information is protected by the Federal Confidentiality of Alcohol and Drug Abuse Patient Records regulations: The Federal rules restrict any use of the information to criminally investigate or prosecute any alcohol or drug abuse patient.[facility] CenterIn the event this information is protected by the Federal Confidentiality of Alcohol and Drug Abuse Patient Records regulations: The Federal rules restrict any use of the information to criminally investigate or prosecute any alcohol or drug abuse patient.[facility] CenterIn the event this information is protected by the Federal Confidentiality of Alcohol and Drug Abuse Patient Records regulations: The Federal rules restrict any use of the information to criminally investigate or prosecute any alcohol or drug abuse patient.[facility] CenterIn the event this information is protected by the Federal Confidentiality of Alcohol and Drug Abuse Patient Records regulations: The Federal rules restrict any use of the information to criminally investigate or prosecute any alcohol or drug abuse patient.[facility] CenterIn the event this information is protected by the Federal Confidentiality of Alcohol and Drug Abuse Patient Records regulations: The Federal rules restrict any use of the information to criminally investigate or prosecute any alcohol or drug abuse patient.[facility] CenterIn the event this information is protected by the Federal Confidentiality of Alcohol and Drug Abuse Patient Records regulations: The Federal rules restrict any use of the information to criminally investigate or prosecute any alcohol or drug abuse patient.[facility] CenterIn the event this information is protected by the Federal Confidentiality of Alcohol and Drug Abuse Patient Records regulations: The Federal rules restrict any use of the information to criminally investigate or prosecute any alcohol or drug abuse patient.[facility] CenterIn the event this information is protected by the Federal Confidentiality of Alcohol and Drug Abuse Patient Records regulations: The Federal rules restrict any use of the information to criminally investigate or prosecute any alcohol or drug abuse patient.[facility] CenterIn the event this information is protected by the Federal Confidentiality of Alcohol and Drug Abuse Patient Records regulations: The Federal rules restrict any use of the information to criminally investigate or prosecute any alcohol or drug abuse patient.[facility] CenterIn the event this information is protected by the Federal Confidentiality of Alcohol and Drug Abuse Patient Records regulations: The Federal rules restrict any use of the information to criminally investigate or prosecute any alcohol or drug abuse patient.[facility] CenterIn the event this information is protected by the Federal Confidentiality of Alcohol and Drug Abuse Patient Records regulations: The Federal rules restrict any use of the information to criminally investigate or prosecute any alcohol or drug abuse patient.[facility] CenterIn the event this information is protected by the Federal Confidentiality of Alcohol and Drug Abuse Patient Records regulations: The Federal rules restrict any use of the information to criminally investigate or prosecute any alcohol or drug abuse patient.[facility] CenterIn the event this information is protected by the Federal Confidentiality of Alcohol and Drug Abuse Patient Records regulations: The Federal rules restrict any use of the information to criminally investigate or prosecute any alcohol or drug abuse patient.[facility] CenterIn the event this information is protected by the Federal Confidentiality of Alcohol and Drug Abuse Patient Records regulations: The Federal rules restrict any use of the information to criminally investigate or prosecute any alcohol or drug abuse patient.[facility] CenterIn the event this information is protected by the Federal Confidentiality of Alcohol and Drug Abuse Patient Records regulations: The Federal rules restrict any use of the information to criminally investigate or prosecute any alcohol or drug abuse patient.[facility] CenterIn the event this information is protected by the Federal Confidentiality of Alcohol and Drug Abuse Patient Records regulations: The Federal rules restrict any use of the information to criminally investigate or prosecute any alcohol or drug abuse patient.[facility] CenterIn the event this information is protected by the Federal Confidentiality of Alcohol and Drug Abuse Patient Records regulations: The Federal rules restrict any use of the information to criminally investigate or prosecute any alcohol or drug abuse patient.[facility] CenterIn the event this information is protected by the Federal Confidentiality of Alcohol and Drug Abuse Patient Records regulations: The Federal rules restrict any use of the information to criminally investigate or prosecute any alcohol or drug abuse patient.[facility] CenterIn the event this information is protected by the Federal Confidentiality of Alcohol and Drug Abuse Patient Records regulations: The Federal rules restrict any use of the information to criminally investigate or prosecute any alcohol or drug abuse patient.[facility] CenterIn the event this information is protected by the Federal Confidentiality of Alcohol and Drug Abuse Patient Records regulations: The Federal rules restrict any use of the information to criminally investigate or prosecute any alcohol or drug abuse patient.[facility] CenterIn the event this information is protected by the Federal Confidentiality of Alcohol and Drug Abuse Patient Records regulations: The Federal rules restrict any use of the information to criminally investigate or prosecute any alcohol or drug abuse patient.[facility] CenterIn the event this information is protected by the Federal Confidentiality of Alcohol and Drug Abuse Patient Records regulations: The Federal rules restrict any use of the information to criminally investigate or prosecute any alcohol or drug abuse patient.[facility] CenterIn the event this information is protected by the Federal Confidentiality of Alcohol and Drug Abuse Patient Records regulations: The Federal rules restrict any use of the information to criminally investigate or prosecute any alcohol or drug abuse patient.[facility] CenterIn the event this information is protected by the Federal Confidentiality of Alcohol and Drug Abuse Patient Records regulations: The Federal rules restrict any use of the information to criminally investigate or prosecute any alcohol or drug abuse patient.[facility] CenterIn the event this information is protected by the Federal Confidentiality of Alcohol and Drug Abuse Patient Records regulations: The Federal rules restrict any use of the information to criminally investigate or prosecute any alcohol or drug abuse patient.[facility] CenterIn the event this information is protected by the Federal Confidentiality of Alcohol and Drug Abuse Patient Records regulations: The Federal rules restrict any use of the information to criminally investigate or prosecute any alcohol or drug abuse patient.[facility] Reason for Visit (unrecogniz ed section and content) Reason Comments Radiology CT Specialty Diagnoses / Procedures Referred By Velma villalta Referred To Contact CT IMAGING Diagnoses Abdominal mass, unspecified abdominal location Procedures CT ABD/PEL WO IVCON CT ABD & PELVIS W/O CONTRAST Marshall Plascencia MD [address] [place] [address] Ct Imaging Referral ID Status Reason Start Date Expiration Date V isits Requested Visits Authorized [id number] Closed Auto-Generate d Referral 10/05/2021 11/04/2022 1 1 Reason Comments Results Reason Onset Date Comments Refill Request 09/24/2021 Reason Comments Prescription Refills Reason Comments Patient Update referral to Dr Scott Reason Comments Follow Up 6 month Specialty Diagnoses / Procedures Referred By Velma villalta Referred To Contact Cardiology Diagnoses Coronary artery disease involving [place] coronary artery of [place] heart without angina pectoris Procedures CONSULT TO CARDIOLOGY NEW PATIENT VISIT LEVEL 5 Jose Hyde MD [address] [place] [address] Referral ID Status Reason Start Date Expiration Date V isits Requested Visits Authorized [id number] Closed PCP Requested Referral 05/05/2021 05/05/2022 1 1 Reason Onset Date Comments Refill Request 02/15/2022 Reason Onset Date Comments Refill Request 05/20/2022 Reason Comments Insurance Authorization Reason Comments F/U 6 months Reason Comments Established Patient Follow-Up Reason Comments Refill Request Reason Onset Date Comments Refill Request 09/19/2022 Reason Comments Appointment Establish care Reason Onset Date Comments Refill Request 01/25/2023 Reason Comments Mammogram Order Reason Comments Established Patient Follow up Reason Comments Established Patient Family worried about patient weight loss Reason Onset Date Comments Refill Request 08/17/2023 Reason Onset Date Comments Refill Request 09/19/2023 Reason Onset Date Comments Refill Request 10/12/2023 Reason Onset Date Comments Refill Request 12/20/2023 Reason Comments DME Co requesting pt information Reason Comments Forms Reason Onset Date Comments Refill Request 01/18/2024 Reason Comments Forms [employer] HIPAA Comp liant Physician Authorization form Reason Onset Date Comments Refill Request 03/19/2024 Care Teams (unrecognized sec tion and content) [employer] Intelligence Officer Chief Relationship Specialty Start Date End Date Jose Hyde MD [address] [place], [place] [id number] PCP - General 05/27/08 Sergio White [address] [address] Cardiology 07/22/16 [employer] Officer Chief Relationship Specialty Start Date End Date Jose Hyde MD [address] [place], [place] [id number] PCP - General 05/27/08 Sergio White [address] [place] [address] Cardiology 07/22/16 [employer] Intelligence Officer Chief Relationship Specialty Start Date End Date Jose Hyde MD [address] [facility] [place] [address] PCP - General 05/27/08 Sergio White [address] [place] [address] Cardiology 07/22/16 [employer] Intelligence Officer Chief Relationship Specialty Start Date End Date Jose Hyde MD [address] [facility] [place] [address] PCP - General 05/27/08 Sergio White [address] [place] [address] Cardiology 07/22/16 [employer] Intelligence Officer Chief Relationship Specialty Start Date End Date Jose Hyde MD [address] [facility] [place] [address] PCP - General 05/27/08 Sergio White [address] [place] [address] Cardiology 07/22/16 [employer] Intelligence Officer Chief Relationship Specialty Start Date End Date Jose Hyde MD [address] [facility] [place] [address] PCP - General 05/27/08 Sergio White [address] [place] [address] Cardiology 07/22/16 [employer] Intelligence Officer Chief Relationship Specialty Start Date End Date Jose Hyde MD [address] [facility] [place] [address] PCP - General 05/27/08 Sergio White [address] [place] [address] Cardiology 07/22/16 [employer] Officer Chief Relationship Specialty Start Date End Date Jose Hyde MD [address] [facility] [place] [address] PCP - General 05/27/08 Sergio White [address] [place] [address] Cardiology 07/22/16 [employer] Officer Chief Relationship Specialty Start Date End Date Jose Hyde MD [address] [facility] [place] [address] PCP - General 05/27/08 Sergio White [address] [place] [address] Cardiology 07/22/16 [employer] Officer Chief Relationship Specialty Start Date End Date Jose Hyde MD [address] [facility] [place] [address] PCP - General 05/27/08 Sergio White [address] [place] [address] Cardiology 07/22/16 [employer] Officer Chief Relationship Specialty Start Date End Date Jose Hyde MD [address] [facility] [place] [address] PCP - General 05/27/08 Sergio White [address] [place] [address] Cardiology 07/22/16 [employer] Officer Chief Relationship Specialty Start Date End Date Jose Hyde MD [address] [place] [address] PCP - General 05/27/08 Sergio White [address] [place] [address] Cardiology 07/22/16 [employer] Intelligence Officer Chief Relationship Specialty Start Date End Date Jose Hyde MD [address] [facility] [place] [address] PCP - General 05/27/08 Sergio White [address] [place] [address] Cardiology 07/22/16 [employer] Intelligence Officer Chief Relationship Specialty Start Date End Date Jose Hyde MD [address] [place] [address] PCP - General 05/27/08 Sergio White [address] [place] [address] Cardiology 07/22/16 [employer] Intelligence Officer Chief Relationship Specialty Start Date End Date Jose Hyde MD [address] [facility] [place] [address] PCP - General 05/27/08 Sergio White [address] [place] [address] Cardiology 07/22/16 [employer] Intelligence Officer Chief Relationship Specialty Start Date End Date Jose Hyde MD [address] [facility] [place] [address] PCP - General 05/27/08 Sergio White [address] [place] [address] Cardiology 07/22/16 [employer] Officer Chief Relationship Specialty Start Date End Date Jose Hyde MD [address] [place] [address] PCP - General 05/27/08 Sergio White [address] [address] Cardiology 07/22/16 [employer] Intelligence Officer Chief Relationship Specialty Start Date End Date Jose Hyde MD [address] [place] [address] PCP - General 05/27/08 Sergio White [address] [address] Cardiology 07/22/16 [employer] Officer Chief Relationship Specialty Start Date End Date Jose Hyde MD [address] [place] [address] PCP - General 05/27/08 Sergio White [address] [address] Cardiology 07/22/16 [employer] Officer Chief Relationship Specialty Start Date End Date Jose Hyde MD [address] [place] [address] PCP - General 05/27/08 Sergio White MD [address] [address] Cardiology 07/22/16 [employer] Officer Chief Relationship Specialty Start Date End Date Jose Hyde MD [address] [place] [address] PCP - General 05/27/08 Sergio White MD [address] [place] [address] Cardiology 07/22/16 [employer] Officer Chief Relationship Specialty Start Date End Date Jose Hyde MD [address] [place] [address] PCP - General 05/27/08 Sergio White MD [address] [place] [address], [place] [address] Cardiology 07/22/16 [employer] Officer Chief Relationship Specialty Start Date End Date Jose Hyde MD [address] [place] [address] PCP - General 05/27/08 Sergio White MD [address] [place] [address] Cardiology 07/22/16 [employer] Officer Chief Relationship Specialty Start Date End Date Jose Hyde MD [address] [place] [address] PCP - General 05/27/08 Sergio White MD [address] [address] Cardiology 07/22/16 [employer] Intelligence Officer Chief Relationship Specialty Start Date End Date Jose Hyde MD [address] [facility] [address] PCP - General 05/27/08 Sergio White MD [address] [place] [address] Cardiology 07/22/16 [employer] Intelligence Officer Chief Relationship Specialty Start Date End Date Jose Hyde MD [address] [facility] [place] [address] PCP - General 05/27/08 Sergio White MD [address] [place] [address] Cardiology 07/22/16 [employer] Intelligence Officer Chief Relationship Specialty Start Date End Date Jose Hyde MD [address] [facility] [place] [address] PCP - General 05/27/08 Sergio White MD [address] [place] [address] Cardiology 07/22/16 [employer] Intelligence Officer Chief Relationship Specialty Start Date End Date Jose Hyde MD [address] [place] [address] PCP - General 05/27/08 Sergio White MD [address] [place] [address] Cardiology 07/22/16 FOR RECORDS PERTAINING TO PATIENTS WHO ARE OR HAVE BEEN ENROLLED IN A CHEMICAL DEPENDENCY/SUBSTANCEABUSE PROGRAM, SOME INFORMATION MAY BE OMITTED. This clinical summary was aggregated from multiple sources. Caution should be exercised in using it in the provision of clinical care. This summary normalizes information from multiple sources, and as a consequence, information in this document may materially change the coding, format and clinical context of patient data. In addition, data may be omitted in some cases. CLINICAL DECISIONS SHOULD BE BASED ON THE PRIMARY CLINICAL RECORDS. [facility] [employer] [facility]. provides no warranty or guarantee of the accuracy or completeness of information in this document.
[2024-04-07 23:06] LABS: Alcohol, Blood (Medical)-Serum < 3.0 mg/dL
[2024-04-07 23:07] LABS: Bedside Glucose 114 mg/dL (74-106)
--- NOTE | 2024-04-07 23:18 | CT_ITS ---
EXAM: CT ANGIOGRAPHY HEAD AND NECK WITH INTRAVENOUS CONTRAST CLINICAL INDICATION: blurred vision, confusion TECHNIQUE: [place]/head and neck CT angiography protocol performed with intravenous contrast. This CT exam was performed using one or more of the following dose reduction techniques: automated exposure control, adjustment of the mA and/or kV according to patient size, and/or use of iterative reconstruction technique. MIP reconstructed images were created and reviewed. CONTRAST: 75 cc of Isovue-370 IV. RADIATION DOSE: CTDIvol = 12.28 mGy, DLP = 407.32 mGy-cm COMPARISON: Noncontrast head CT 04/07/2024. FINDINGS: HEAD: RIGHT ANTERIOR CEREBRAL ARTERY: Unremarkable. No occlusion or significant stenosis. Anterior communicating artery is present. No aneurysm. RIGHT MIDDLE CEREBRAL ARTERY: Unremarkable. No occlusion or significant stenosis. No aneurysm. RIGHT POSTERIOR CEREBRAL ARTERY: Unremarkable. No occlusion or significant stenosis. No aneurysm. RIGHT INTRACRANIAL INTERNAL CAROTID ARTERY: Moderate atherosclerotic changes right intracavernous internal carotid artery without hemodynamic significant stenosis. No dissection or occlusion. RIGHT INTRACRANIAL VERTEBRAL ARTERY: Unremarkable. No significant stenosis. No dissection or occlusion. LEFT ANTERIOR CEREBRAL ARTERY: Unremarkable. No occlusion or significant stenosis. No aneurysm. LEFT MIDDLE CEREBRAL ARTERY: Unremarkable. No occlusion or significant stenosis. No aneurysm. LEFT POSTERIOR CEREBRAL ARTERY: Unremarkable. No occlusion or significant stenosis. No aneurysm. LEFT INTRACRANIAL INTERNAL CAROTID ARTERY: Moderate atherosclerotic changes left intracavernous internal carotid artery without hemodynamic significant stenosis. No dissection or occlusion. LEFT INTRACRANIAL VERTEBRAL ARTERY: Unremarkable. No significant stenosis. No dissection or occlusion. BASILAR ARTERY: Unremarkable. No occlusion or significant stenosis. No aneurysm. OTHER VASCULATURE: No vascular malformation. 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 NECK: RIGHT COMMON CAROTID ARTERY: Unremarkable. No significant stenosis. No dissection or occlusion. RIGHT EXTRACRANIAL INTERNAL CAROTID ARTERY: Moderate atherosclerotic changes right carotid bulb without hemodynamically significant stenosis. No dissection or occlusion. RIGHT EXTERNAL CAROTID ARTERY: Unremarkable. No occlusion. RIGHT EXTRACRANIAL VERTEBRAL ARTERY: Unremarkable. No significant stenosis. No dissection or occlusion. LEFT COMMON CAROTID ARTERY: Unremarkable. No significant stenosis. No dissection or occlusion. LEFT EXTRACRANIAL INTERNAL CAROTID ARTERY: Moderate atherosclerotic changes left carotid bulb without hemodynamically significant stenosis. No dissection or occlusion. LEFT EXTERNAL CAROTID ARTERY: Unremarkable. No occlusion. LEFT EXTRACRANIAL VERTEBRAL ARTERY: Unremarkable. No significant stenosis. No dissection or occlusion. BRACHIOCEPHALIC AND SUBCLAVIAN ARTERIES: Unremarkable as visualized. No occlusion or significant stenosis. LUNG APICES: Unremarkable as visualized. HEAD and NECK: BONES/JOINTS: Unremarkable. No discrete lytic or blastic abnormalities. SOFT TISSUES: Unremarkable. CAROTID STENOSIS REFERENCE USING NASCET CRITERIA: % ICA stenosis = (1 - narrowest ICA diameter/diameter of distal cervical ICA) x 100. Mild - <50% stenosis. Moderate - 50-69% stenosis. Severe - 70-94% stenosis. Near occlusion - 95-99% stenosis. Occluded - 100% stenosis. CT/CTA Head AND Neck W/ Contrast IMPRESSION: 1. No large vessel occlusion or significant intracranial vascular abnormality. 2. Moderate atherosclerotic changes right carotid bulb without hemodynamically significant stenosis. 3. Dense atherosclerotic changes left carotid bulb without hemodynamically significant stenosis. 4. Moderate atherosclerotic changes right intracavernous internal carotid artery without hemodynamic significant stenosis. 5. Moderate atherosclerotic changes left intracavernous internal carotid artery without hemodynamic significant stenosis. 6. 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 Electronically Signed: Steven Aponte MD at 1:01 EDT ,
[2024-04-08] VITALS: BP 123/62; PULSE 57; RESP 16; O2SAT 98
[2024-04-08 00:23] VITALS: BMI 18.0
[2024-04-08 00:24] VITALS: BP 158/68; PULSE 68; RESP 16; O2SAT 98
[2024-04-08 01:00] VITALS: BP 105/92; PULSE 57; RESP 16; TEMP 36.3; O2SAT 98
[2024-04-08] MEDS: Potassium Chloride Oral Tablet 20 MEQ 40 MEQ PO (01:28)
[2024-04-08 01:30] VITALS: BP 108/92; PULSE 59; RESP 14; O2SAT 98
[2024-04-08 01:35] LABS: Troponin-I HS 4 pg/mL (3.0-54.0)
[2024-04-08 01:39] VITALS: BP 108/92; PULSE 57; RESP 18; TEMP 36.6; O2SAT 96
[2024-04-08 01:42] VITALS: BMI 18.0
== END 2024-04-08 01:43 | disposition home or self-care (01) ==
PROVIDERS: Emergency Provider Emergency Medicine; PCP Internal Medicine; Visit Provider Emergency Medicine
DX: H53.8 Other visual disturbances (principal); I10 Essential (primary) hypertension; F41.9 Anxiety disorder, unspecified; I25.10 Atherosclerotic heart disease of native coronary artery without angina pectoris; E78.00 Pure hypercholesterolemia, unspecified; E03.9 Hypothyroidism, unspecified; Z79.82 Long term (current) use of aspirin; Z79.02 Long term (current) use of antithrombotics/antiplatelets; Z79.890 Hormone replacement therapy; Z79.899 Other long term (current) drug therapy; Z95.5 Presence of coronary angioplasty implant and graft; Z95.1 Presence of aortocoronary bypass graft; Z87.891 Personal history of nicotine dependence; Z86.73 Personal history of transient ischemic attack (TIA), and cerebral infarction without residual deficits
CPT/HCPCS: 70450; 70496; 70498; 71045; 80048; 82077; 82962; 84484; 85025; 85610; 85730; 93005; 99285; Q9967; A4216

== ENCOUNTER 2024-10-15 12:38 | Emergency (ER) | payer MEDICARE, OTHER, SELFPAY ==
[2024-10-15 12:40] VITALS: BP 118/75; PULSE 88; RESP 18; TEMP 36.5; O2SAT 98
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
[2024-10-15 13:40] VITALS: BMI 14.6
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
[2024-10-15 14:39] VITALS: BP 146/76
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
[2024-10-15 16:00] VITALS: BP 139/99; PULSE 76
[2024-10-15 16:54] VITALS: BP 131/73; PULSE 76; RESP 16; TEMP 36.5; O2SAT 98
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
== END 2024-10-15 16:55 | disposition home or self-care (01) ==
PROVIDERS: Emergency Provider Emergency Medicine; PCP Internal Medicine; Visit Provider Emergency Medicine
DX: F41.9 Anxiety disorder, unspecified (principal); F32.A Depression, unspecified; I25.10 Atherosclerotic heart disease of native coronary artery without angina pectoris; R64 Cachexia; Z68.1 Body mass index [BMI] 19.9 or less, adult; E78.00 Pure hypercholesterolemia, unspecified; I10 Essential (primary) hypertension; E03.9 Hypothyroidism, unspecified; I73.9 Peripheral vascular disease, unspecified; K58.9 Irritable bowel syndrome, unspecified; K59.00 Constipation, unspecified; F17.210 Nicotine dependence, cigarettes, uncomplicated; Z95.5 Presence of coronary angioplasty implant and graft; Z79.02 Long term (current) use of antithrombotics/antiplatelets; Z79.890 Hormone replacement therapy; Z79.899 Other long term (current) drug therapy
CPT/HCPCS: 99282

== ENCOUNTER 2024-10-15 19:24 | Emergency (ER) | payer MEDICARE, OTHER, SELFPAY ==
[2024-10-15 19:24] VITALS: BP 154/89; PULSE 85; RESP 16; TEMP 36.7; O2SAT 98
--- NOTE | 2024-10-15 20:23 | ED.RN ---
KEVON Stearns aware of pt returning to department. Dr. Mejias updated and no further orders. Jinny talked to pt and . Pt left ER with .
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
== END 2024-10-15 20:20 | disposition home or self-care (01) ==
LOC: ED 20:32
PROVIDERS: PCP Internal Medicine
DX: F41.9 Anxiety disorder, unspecified (principal); Z53.21 Procedure and treatment not carried out due to patient leaving prior to being seen by health care provider
CPT/HCPCS: 99283

== ENCOUNTER 2024-10-21 13:46 | Inpatient (IN) | payer MEDICARE, OTHER, SELFPAY ==
[2024-10-21] VITALS (7 sets, daily range): BP systolic 129–165; BP diastolic 73–105; PULSE 67–79; RESP 16–18; TEMP 35.7–36.6; O2SAT 97–100; BMI 15.0; BMI 14.7
--- NOTE | 2024-10-21 14:29 | EKG12_ITS ---
Test Reason : Blood Pressure : */* mmHG Vent. Rate : 72 BPM Atrial Rate : 72 BPM P-R Int : 166 ms QRS Dur : 84 ms QT Int : 438 ms P-R-T Axes : 1 -19 57 degrees QTcB Int : 479 ms Normal sinus rhythm Minimal voltage criteria for LVH, may be normal variant ( Arnaldo product ) Septal infarct , age undetermined Inferior infarct (cited on or before 15-Aug-2013) Abnormal ECG Confirmed by Steven Aguilar ([id number]), script editor SEDRICK FRANCO ([id number]) on 10/25/2024 11:53:25 AM Referred By: Mango Dutta Confirmed By: Steven Aguilar
--- NOTE | 2024-10-21 14:29 | CT_ITS ---
PROCEDURE: ABDOMEN/PELVIS W IV CONT ONLY, 10/21/2024 REASON FOR EXAM: LOWER ABD PAIN AND WEIGHT LOSS TECHNIQUE: CT abdomen and pelvis was performed with IV contrast. Multiplanar reformats were generated. IV contrast: Isovue-300 VOLUME: 79mL Oral contrast: RADIATION DOSE SUMMARY: CTDlvol: 9.97+ 4.53 mGy DLP: 206.39 mGycm One or more dose reduction techniques were used (e.g., Automated exposure control, adjustment of the mA and/or kV according to patient size, use of iterative reconstruction technique). COMPARISON: None FINDINGS: Exam limited by considerable streak artifact related to lumbar spinal fusion hardware. Lung bases: Aortic annular calcification. Coronary atherosclerosis and/or stents. Chronic granulomatous disease. Minimal atelectasis/scarring. Mild focal ground-glass within the subpleural RIGHT middle lobe. 4 mm irregular nodule in the region (series 2, image 13). Liver: Likely focal steatosis along the anterior falciform, normal variant.. Spleen: Granuloma.. Gallbladder: Physiologically distended gallbladder. Mildly dilated CBD to 9 mm without calcified stone or other visible obstructing process.. Pancreas: Atrophic. Adrenals: Unremarkable. Kidneys: Tiny hypodensities too small to characterize likely cysts.. No hydronephrosis or definite ureteral calculus noting that tracing the ureters is difficult. Renal vascular calcifications and/or punctate nonobstructing intrarenal calculi. Bowel: Nonspecific gas distended but technically nondilated small bowel loops up to 2.5 cm. No convincing inflammation allowing for limitations. Rectosigmoid colonic wall thickening versus underdistention. Wall thickening versus underdistention of the cecum. Appendix not identified. No definite inflammation in the region. Lymph nodes: Unremarkable. Vasculature: Severe diffuse atherosclerosis. Bilateral common iliac stents suspect stenoses at the origins of the SMA, celiac, bilateral renal arteries, and KILEY, incompletely evaluated. Peritoneum: Unremarkable. Bladder: Small portion of the RIGHT posterolateral bladder extends into what appears to reflect a defect in the RIGHT pelvic floor, levator musculature. Reproductive Organs: Hysterectomy. Body Wall: Surgical clips in the inguinal regions.. Bones: Multilevel spondylosis. Demineralization. Lumbar spinal fusion. Thoracolumbar levoscoliosis.. CT/Abdomen/Pelvis W IV Cont ONLY IMPRESSION: 1. Limited exam as above. 2. Mild wall thickening versus underdistention involving the rectosigmoid colon and cecum. Correlate for mild colitis and recommend clinical follow-up to ensure resolution and no underlying lesion. No definite adjacent inflammation to confirm colitis. 3. Mildly dilated CBD to 9 mm without calcified stone or other visible obstruct ing process. Correlate with serum bilirubin and consider MRCP as indicated. 4. Appendix not identified. No definite inflammation in the region. 5. Additional description as above. Reading Location: [id number]
--- NOTE | 2024-10-21 14:31 | ED.VIS.GI ---
HPI HPI - GI History of Present Illness Chief Complaint: GI Bleed Informant: patient Abdominal Pain/Flank Pain Onset: Weeks Context: Gradual Onset Timing: Continuous Location: - (Bilateral lower quadrants.) Current Severity: Mild Maximum Severity: Mild Worsened by: Food Relieved by: Nothing Nausea/Vomiting/Emesis GI Symptom: Positive for Nausea and Vomiting Onset: Weeks Severity: Mild Diarrhea/Melena/Hematochezia GI Symptom: Positive for Diarrhea and Melena Onset: Weeks Stool Quality: Positive for Watery Severity: Moderate Associated Symptoms Associated Symptoms: Negative for Dysuria, Frequency, Hematuria or Urgency Narrative Narrative: 73-year-old female history of CAD with stent on Plavix. Hypothyroidism and states she was taken off her medication. Prior MO. Prior hysterectomy with BSO and appendectomy. Quit smoking 2 months ago. Said that she initially told triage she did not but felt well for 2 weeks believes it may have been a month now. She denies any dysuria. Some never she eats she gets abdominal pain and has nausea and vomiting. She has been having left 5-10 episodes of diarrhea a day. Has had at least a 20 pound weight. But she is also been off her thyroid medication. She denies any fever. Prior similar symptoms: No Recent Illness/Hospitalization: No [facility] Medical History (Updated 10/21/24 @ 18:[address] Jonas Samuels MD) Atherosclerotic heart disease of [place] coronary artery without angina pectoris Pure hypercholesterolemia IBS (irritable bowel syndrome) Hypothyroidism Presence of stent in coronary artery (~08/08/12) Atherosclerotic heart disease of [place] coronary artery without angina pectoris Benign essential HTN Arteriosclerotic heart disease (ASHD) Home Medications ?Medication ?Instructions ?Recorded ?Last Taken ?Type atenolol 25 mg tablet 25 mg PO DAILY 06/04/13 02/01/16 05:00 History clopidogrel 75 mg tablet 75 mg PO DAILY 06/04/13 08/19/24 History nitroglycerin 0.4 mg sublingual 0.4 mg sublingual Q5M PRN Chest 06/04/13 Unknown History tablet Pain pantoprazole 40 mg tablet,delayed 20 mg PO BID 06/04/13 02/01/16 05:00 History release bupropion HCl 100 mg tablet,12 hr 100 mg PO DAILY 06/28/18 Unknown History sustained-release (Wellbutrin SR) sertraline 100 mg tablet 100 mg PO DAILY 06/28/18 08/19/24 History levothyroxine 50 mcg tablet 50 mcg PO DAILY 06/10/19 Unknown History atorvastatin 80 mg tablet 80 mg PO QHS #30 tabs 12/16/19 08/19/24 Rx amlodipine 10 mg tablet 10 mg PO DAILY 10/21/24 08/19/24 History quetiapine 100 mg tablet 100 mg PO QHS 10/21/24 08/19/24 History sertraline 50 mg tablet 50 mg PO DAILY 10/21/24 08/19/24 History valacyclovir 500 mg tablet 500 mg PO DAILY 10/21/24 08/19/24 History Allergy/AdvReac Type Severity Reaction Status Date / Time codeine Allergy Severe Swelling Verified 10/21/24 13:54 propoxyphene HCl (From Allergy Severe Other Verified 10/21/24 13:54 Darvon) Penicillins AdvReac Intermediate Nausea/Vom/ Verified 10/21/24 13:54 Diarrhea Family History Brother CVA (cerebral vascular accident) Heart disease Cancer Surgical History Presence of coronary angioplasty implant and graft (~08/08/12) History of aorto-femoral bypass History of heart artery stent History of left knee surgery History of hysterectomy History of lumbar surgery History of hysterectomy PAD (peripheral artery disease) Social History Smoking Status: Former smoker alcohol intake: never substance use type: does not use ROS ROS ED ROS Narrative Lower abdominal pain. Weight loss. Nausea vomiting diarrhea. Melena. Constitutional Constitutional ED: Denies chills or fever(s) ENT ENT ED: Denies ear pain Cardiovascular Cardiovascular: Denies chest pain Respiratory/Chest Respiratory/Chest: Denies cough or dyspnea Gastrointestinal Gastrointestinal: Reports diarrhea, melena, nausea and vomiting; Denies constipation Genitourinary Genitourinary ED: Denies dysuria or hematuria Musculoskeletal Musculoskeletal: Denies arthralgias Integumentary Denies abscess Neurologic Neurologic: Denies headache(s) Psychiatric Psychiatric: Denies anxiety or depression Endocrine Endocrinology: Denies polydipsia or polyphagia Hematologic/Lymphatic Hematologic/Lymphatic: Denies easy bleeding, easy bruising or lymphadenopathy Allergic/Immunologic Allergic/Immunologic ED: Denies mouth swelling, tongue swelling or urticaria EXAM Physical Exam Narrative Exam Narrative: [id number] female sitting upright in bed. Vital signs stable afebrile. Does not look septic or toxic. No acute distress. H EENT exam pupils round react to light. Moist mucous membranes. Neck nontender JVD. No lymphadenopathy. Lungs clear to auscultation bilaterally. Heart regular rhythm no murmur. Rate about 80. Chest wall ribs nontender. She is very thin. Abdomen soft nondistended normal bowel sounds without peritoneal signs. She really does not have any significant abdominal tenderness. Says she has pain in her suprapubic region. There is no hernia or mass. There is no pulsatile mass. Both the right upper and right lower quadrants are unremarkable. There is no distention. Moving all 4 extremities. Nontender no edema. Again thin. Normal strength. Back nontender. Neurologically she is awake alert answering questions following commands. Const Vital Signs: 10/21/24 13:47 10/21/24 15:47 10/21/24 17:00 Temperature 97.7 F L Temperature Source Oral Pulse Rate 79 67 Respiratory Rate 18 18 Blood Pressure 156/89 H 146/91 H 140/73 H Blood Pressure Mean 111 109 95 Pulse Ox 99 98 97 Oxygen Delivery Method Room Air Room Air Room Air 10/21/24 18:25 Temperature 97.8 F Temperature Source Pulse Rate 67 Respiratory Rate 16 Blood Pressure 129/105 H Blood Pressure Mean 113 Pulse Ox 98 Oxygen Delivery Method Positive well developed and cachectic; Negative for well nourished, obese, contractures or unkempt Constitutional Narrative: Thin. Weight loss. General Appearance ED: well developed, cachectic and NAD; Negative for unkempt, contractures or pallor Nutritional Appearance: cachectic; Negative for obese HEENT Reports moist mucous membranes normocephalic and atraumatic Eyes PERRL and EOMs intact bilaterally General Eye ED: Negative for pale conjunctiva or scleral icterus Neck no lymphadenopathy, supple and no JVD General: Negative for tenderness Carotids: Negative for other Resp normal respiratory effort and clear to auscultation bilaterally Effort and Inspection: Negative for respiratory distress Auscultation: Negative for rales, rhonchi, wheezes or diminished lung sounds Cardio regular rate, regular rhythm, S1 normal heart sound, S2 normal heart sound and no murmurs Rate: Negative for bradycardia or tachycardic Rhythm: Negative for abnormal rhythm GI non-tender, non-distended and no masses GI Narrative: Complains of suprapubic pain but really not reproducible. Auscultation: normoactive bowel sounds Palpation: soft; Negative for tender, guarding, rigid, hepatomegaly, splenomegaly, hernia, mass, pulsatile mass or rebound tenderness present Back/Spine no CVA tenderness General Back: Negative for CVA tenderness Cervical Spine: Negative for cervical spine tenderness Thoracic Spine / Upper Back: Negative for thoracic spinal tenderness Lumbar Spine / Lower Back: Negative for lumbar spinal tenderness Extremity full ROM Extremity Narrative: Thin muscular wasting. General Extremety ED: Negative for edema or tenderness General Extremity: Negative for edema Neuro CN's II-XII intact bilaterally and moves all extremities Sensorium / Orientation: alert, oriented to person, oriented to place and oriented to time; Negative for orientation impaired, confused or lethargic Motor Exam: strength 5/5 throughout Psych mental status grossly normal and thought process normal Appearance: Negative for unkempt Mood & Affect: Negative for tearful Skin General Skin Exam: Negative for jaundice or pallor Lesions: no lesions Rashes: no rashes Trauma: Negative for abrasion Nails: Negative for discolored MDM MDM MDM Narrative Medical decision making narrative: 73-year-old female with nausea vomiting diarrhea for a month primarily when she eats. Weight loss. PT PTT obtained. CBC and BMP were reportedly lower abdominal pain. Differential could include GI bleed, malignancy, mesenteric ischemia, versus other etiologies. She be treated with a liter of fluid. CAT scan and labs are being obtained including a TSH was reportedly she been off her thyroid medication which could also explain her weight loss. Repeat exam patient doing well at 6:20 PM. Abdomen is benign. She will be treated with IV and oral potassium for a potassium of 2.2. Given her weight loss, hypokalemia I think she needs admitted for further evaluation. Possible mesenteric ischemia versus other etiologies. Hospitalist will admit the patient. History & Record Review Discussion w/independent historian: Patient Additional record(s) reviewed:: Prior inpatient record, Prior outpatient record, Prior ED visit and Prior labs Lab Data Attestation: I reviewed the patient's lab results. Lab results narrative: CBC shows normal white count of 6.9. H&H is 16 and 43. Platelets 198. Electrolytes show sodium 134. Potassium 2.2. Anion gap is 24. BUN and creatinine are normal 11 and 0.8. Liver enzymes unremarkable. AST of 40 ALT of 48. Amylase is normal at 26. Lipase is 43. TSH is normal at 2.5. Urinalysis is normal. Blood type is O+. Labs: Laboratory Results - last 24 hr 10/21/24 10/21/24 10/21/24 14:00 14:39 16:16 WBC 6.9 RBC 4.95 Hgb 16.1 H Hct 43.9 MCV 88.7 MCH 32.5 H MCHC 36.7 H RDW Std Deviation 44.8 H RDW Coeff of Sowmy[place] 14.0 Plt Count 198 MPV 11.6 Immature Gran % (Auto) 0.400 Neut % (Auto) 58.0 Lymph % (Auto) 28.3 [place] % (Auto) 12.0 H Eos % (Auto) 1.0 Baso % (Auto) 0.3 Absolute Neuts (auto) 4.0 Absolute Lymphs (auto) 1.95 Nucleated RBC % 0 Sodium 134 Potassium 2.2 L* Chloride 89 L Carbon Dioxide 19.9 L Anion Gap 24 H BUN 11 Creatinine 0.81 Estim Creat Clear Calc 38.09 L Est GFR (MDRD) Non-Af 77 BUN/Creatinine Ratio 13.3 Glucose 95 Calcium 11.4 H Total Bilirubin 0.45 AST 40 H ALT 48 H Alkaline Phosphatase 75 Total Protein 7.3 Albumin 4.0 Globulin 3.3 Albumin/Globulin Ratio 1.2 Amylase 26 L Lipase 43 TSH 2.500 Urine Color Straw Urine Clarity Clear Urine pH 6.5 Ur Specific [place] 1.005 Urine Protein 15 H Urine Glucose (UA) Normal Urine Ketones 50 H Urine Occult Blood Negative Urine Nitrite Negative Urine Bilirubin Negative Urine Urobilinogen Normal Ur Leukocyte Esterase Negative Urine RBC 0-5 SEEN Urine WBC 0-5 SEEN Ur Squamous Epith Cells 0-5 SEEN Urine Bacteria 0 SEEN Urine Mucus 0 SEEN Blood Type O POSITIVE Antibody Screen NEGATIVE Radiography Chest X-Ray - ED: 2 View and Read by ED Physician Diagnostic Testing: Clinical Impression(s) from Imaging Studies Abdomen/Pelvis CT 10/21/24 14:29 IMPRESSION: 1. Limited exam as above. 2. Mild wall thickening versus underdistention involving the rectosigmoid colon and cecum. Correlate for mild colitis and recommend clinical follow-up to ensure resolution and no underlying lesion. No definite adjacent inflammation to confirm colitis. 3. Mildly dilated CBD to 9 mm without calcified stone or other visible obstructing process. Correlate with serum bilirubin and consider MRCP as indicated. 4. Appendix not identified. No definite inflammation in the region. 5. Additional description as above. Reading Location: [facility] Chest X-Ray 10/21/24 15:10 IMPRESSION: No acute cardiopulmonary process is identified radiographically. Emphysematous changes. Arteriosclerotic vascular disease of the aorta. Diffuse osteopenia of the bony thorax. Reading Location: [facility] Chest x-ray, 2 views, AP and lateral, interpreted both by myself and the radiologist. Shows chronic changes. COPD. No acute process. Rhythm Strip Rhythm Strip: Sinus Rhythm Rate: 72 Ectopy: None EKG Initial EKG: Attestation: I personally reviewed and interpreted this EKG as follows: Interpretation: Sinus Rhythm and No Acute Injury Pattern Comments: Normal sinus rhythm rate of 72 no acute signs of MO or ischemia. Discharge Plan Triage Chief Complaint: GI Bleed Other Complaint: Nausea/Vomiting ED Provider: Jonas Samuels Dx/Rx/DC Orders Clinical Impression: Abdominal pain, Abnormal weight loss, Abdominal pain, vomiting, and diarrhea, Acute hypokalemia, History of CAD (coronary artery disease) Prescriptions: No Action bupropion HCl [Wellbutrin SR] 100 mg tablet sustained-release 12 hr 100 mg PO DAILY atenolol 25 MG tablet 25 mg PO DAILY Patient Comments: BP clopidogrel 75 MG tablet 75 mg PO DAILY Patient Comments: ANTIPLATLET pantoprazole 40 MG tablet 20 mg PO BID Patient Comments: STOMACH nitroglycerin 0.4 MG tablet 0.4 mg Sublingual Q5M PRN (Reason: Chest Pain) sertraline 100 mg tablet 100 mg PO DAILY Patient Comments: MOOD levothyroxine 50 mcg tablet 50 mcg PO DAILY Patient Comments: THYROID valacyclovir 500 mg tablet 500 mg PO DAILY quetiapine 100 mg tablet 100 mg PO QHS amlodipine 10 mg tablet 10 mg PO DAILY sertraline 50 mg tablet 50 mg PO DAILY atorvastatin 80 mg tablet 80 mg PO QHS Qty: 30 12RF Primary Care Provider: Laurie Finley Referrals: Laurie Finley MD [Primary Care Provider] - Print Language: Burmese Disposition Disposition: Acute Care Hospital [facility]
[2024-10-21] MEDS: 0.9% Normal Saline (1000mL) 1,000 ML 999 ML IV (14:44)
[2024-10-21 14:49] LABS: Absolute Lymphocyte Count 1.95 X10^3/uL (0.83-4.51); Basophil# 0.02 X10^3/uL; Basophil% 0.3 % (0-1); Eosinophil# 0.07 X10^3/uL; Hematocrit 43.9 % (37-47); Hemoglobin 16.1 g/dL (12.0-15.0); Lymphocyte # 1.95 X10^3/ul (0.83-4.51); Lymphocyte % 28.3 % (19-41); Mean Corp Hgb Conc 36.7 g/dL (32-36); Mean Corpuscular Hgb 32.5 pg (27.0-32.0); Mean Corpuscular Volume 88.7 fL (81-99); Mean Platelet Vol. 11.6 fl (6.2-12.0); Monocyte# 0.83 X10^3/uL; NRBC Flagged by Analyzer 0 % (0-5); Platelet Count 198 K/mm3 (150-450); RBC Distribution Width SD 44.8 fl (35.1-43.9); Red Blood Count 4.95 M/mm3 (4.2-5.4); White Blood Count 6.9 K/mm3 (4.4-11.0)
--- NOTE | 2024-10-21 15:10 | RAD_ITS ---
PROCEDURE: CHEST PA AND LATERAL 10/21/2024 REASON FOR EXAM: WEIGHT LOSS TECHNIQUE: Frontal and lateral views of the chest. COMPARISON: Chest x-ray study dated 04/07/2024 FINDINGS: Hardware: Radiopaque hardware is projected over the lumbar spine. The radiopaque hardware is not entirely included on this study. Surgical clips are projected in this location. Heart: Heart size and configuration are within normal limits. Mediastinum: Pulmonary vasculature and hilar structures are unremarkable. Trachea is midline. Arteriosclerotic vascular disease of the aorta is noted. Lungs: Calcific nodular densities are projected over the left cardiac border and are similar when compared to the prior study. There is no atelectasis, consolidation, effusion or pneumonic infiltrate. The lungs are hyperinflated with slight flattening of the hemidiaphragms. There are central lucency identified in the upper lung valentin. These findings are compatible with emphysematous changes. Bones: Diffuse osteopenia of the bony thorax is seen. There appears to be a dextroscoliosis of the thoracic spine. RAD/Chest PA and Lateral IMPRESSION: No acute cardiopulmonary process is identified radiographically. Emphysematous changes. Arteriosclerotic vascular disease of the aorta. Diffuse osteopenia of the bony thorax. Reading Location: [id number]
[2024-10-21 15:16] LABS: Amylase 26 U/L (28-100); Lipase 43 U/L (13-75)
[2024-10-21 15:20] LABS: ALB/GLOB Ratio 1.2 RATIO (0.9-2.4); AST(SGOT) 40 U/L (<=31); Alanine Aminotransfer ALT/SGPT 48 U/L (<=34); Alkaline Phosphatase 75 U/L (35-104); Anion Gap 24 (5-15); BUN 11 mg/dL (4-19); BUN/Creat Ratio 13.3 RATIO (10-20); Calcium,Total 11.4 mg/dL (7.6-11.0); Carbon Dioxide 19.9 mmol/L (21.0-32.0); Chloride 89 mmol/L (98-108); Creatinine, Serum 0.81 mg/dL (0.70-1.20); EST Glomerular Filtration Rate 77 (>60); Estimated Creatinine Clearance 38.09 ml/min (50-250); Globulin 3.3 g/dL (2.2-4.2); Glucose 95 mg/dL (70-99); Potassium 2.2 mmol/L (3.3-5.1); Protein, Total 7.3 g/dL (5.9-8.4); Sodium Level 134 mmol/L (133-145); Total Bilirubin 0.45 mg/dL (0.00-1.30)
[2024-10-21 16:29] LABS: Bacteria 0 SEEN /hpf (None Seen); Mucous, Urine 0 SEEN /hpf (<or=2+)
[2024-10-21 16:40] LABS: Color, Urine Straw (Yellow); Glucose, Dipstick Normal (Normal); Ketone-Dipstick 50 mg/dl (Negative); Leukocyte Esterase-Dipstick Negative /ul (Negative); Nitrite-Dipstick Negative (Negative); Occult Blood-Urine Negative /ul (Negative); Protein-Dipstick 15 mg/dl (Negative); Specific Gravity, Urine 1.005 (1.002-1.030); Urine Bilirubin Dipstick Negative (Negative); Urine Clarity Clear (Clear); Urine Urobilinogen Normal (Normal); Urine pH 6.5 (5.0 - 8.0)
[2024-10-21 17:56] LABS: Red Blood Cells-Urine 0-5 SEEN /hpf (0-5); Squamous Epithelial Cells - UA 0-5 SEEN /hpf (5-10); White Blood Cells 0-5 SEEN /hpf (0-5)
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
[2024-10-21] MEDS: Potassium Chloride Oral Tablet 20 MEQ 60 MEQ PO (18:33)
[2024-10-21] MEDS: Potassium Chloride 10mEq/100mL 10 MEQ/100 ML IV.SOLN. 100 MEQ IV BOLUS ×2 (18:38→19:59)
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
[2024-10-21] MEDS: metroNIDAZOLE 500 MG/100 ML BAG 100 MG IV (19:27)
[2024-10-21] MEDS: levoFLOXacin IV 750 MG/150 ML BAG 100 MG IV (19:29)
[2024-10-21 21:05] LABS: PTHIN 9 pg/mL (11-61)
[2024-10-21] MEDS: KCL 40mEq in 0.9% NS 40 MEQ/1,000 ML IV.SOLN 125 MEQ IV (21:32)
[2024-10-21] MEDS: Pantoprazole Sodium 40 MG in 0.9% Normal Saline (100mL MB+) 100 ML 330 MG IV (22:40)
[2024-10-21 23:31] LABS: Troponin T High Sensitivity 27 ng/L (<=14)
[2024-10-22] VITALS (16 sets, daily range): BP systolic 123–171; BP diastolic 71–100; PULSE 63–76; RESP 15–20; TEMP 36.1–36.9; O2SAT 93–100; BMI 14.7
[2024-10-22 01:01] LABS: Troponin T High Sens 2 HR 25 ng/L (<=14)
[2024-10-22 04:10] LABS: Absolute Lymphocyte Count 1.29 X10^3/uL (0.83-4.51); Absolute Neutrophil Count 3.7 X10^3/uL (2.0-7.7); Basophil# 0.02 X10^3/uL; Basophil% 0.3 % (0-1); Eosinophil# 0.12 X10^3/uL; Hematocrit 35.7 % (37-47); Hemoglobin 12.8 g/dL (12.0-15.0); Lymphocyte # 1.29 X10^3/ul (0.83-4.51); Lymphocyte % 21.5 % (19-41); Mean Corp Hgb Conc 35.9 g/dL (32-36); Mean Corpuscular Hgb 32.8 pg (27.0-32.0); Mean Corpuscular Volume 91.5 fL (81-99); Mean Platelet Vol. 10.6 fl (6.2-12.0); Monocyte# 0.88 X10^3/uL; Monocyte% 14.7 % (0-10); NRBC Flagged by Analyzer 0 % (0-5); Neutrophil # 3.65 X10^3/uL (2.7-7.7); Neutrophil % 60.8 % (47-70); Platelet Count 149 K/mm3 (150-450); RBC Distribution Width CV 14.4 % (11.6-14.6); RBC Distribution Width SD 48.1 fl (35.1-43.9)
[2024-10-22 04:28] LABS: Troponin T High Sens 4 HR 21 ng/L (<=14)
[2024-10-22 05:09] LABS: Phosphorus 1.3 mg/dL (2.7-4.5)
[2024-10-22 06:04] LABS: ALB/GLOB Ratio 1.2 RATIO (0.9-2.4); AST(SGOT) 28 U/L (<=31); Alanine Aminotransfer ALT/SGPT 32 U/L (<=34); Alkaline Phosphatase 55 U/L (35-104); Anion Gap 19 (5-15); BUN 6 mg/dL (4-19); BUN/Creat Ratio 9.8 RATIO (10-20); Calcium,Total 8.5 mg/dL (7.6-11.0); Carbon Dioxide 15.9 mmol/L (21.0-32.0); Chloride 104 mmol/L (98-108); Cholesterol 153 mg/dL (<=200); Creatinine, Serum 0.56 mg/dL (0.70-1.20); EST Glomerular Filtration Rate 96 (>60); Estimated Creatinine Clearance 36.72 ml/min (50-250); Globulin 2.5 g/dL (2.2-4.2); Glucose 74 mg/dL (70-99); High Density Lipoprotein 44 mg/dL; Low Density Lipoprotein Calc. 91 mg/dL; Potassium 3.7 mmol/L (3.3-5.1); Protein, Total 5.5 g/dL (5.9-8.4); Sodium Level 139 mmol/L (133-145); Triglycerides 86 mg/dL; Very Low Density Lipoprotein 17 mg/dL (5-40); cholesterol:hdl ratio screen 3.45
[2024-10-22] MEDS: metroNIDAZOLE 500 MG/100 ML BAG 100 MG IV ×2 (06:21→14:43)
[2024-10-22] MEDS: Potassium Phosphate 40 MM in 0.9% Normal Saline (500mL Bag) 500 ML 62.5 MM IV (06:25)
[2024-10-22] MEDS: KCL 40mEq in 0.9% NS 40 MEQ/1,000 ML IV.SOLN 125 MEQ IV (06:39)
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
--- NOTE | 2024-10-22 09:30 | MRI_ITS ---
PROCEDURE: MRCP ABDOMEN WITHOUT CONTRAST WITH MRCP, 10/22/2024 REASON FOR EXAM: ABNORMAL CT WITH N/V, DIARRHEA AND MELENA. TECHNIQUE: Multiplanar multisequence MRI abdomen was performed without IV contrast. MRCP was performed including generation of MIP reconstructions and 3D reformats. COMPARISON: 10/21/2024 FINDINGS: Variable overall moderate motion limitation. Some sequences are severely motion degraded. Note that the exam was optimized for evaluation of the gallbladder and biliary tree rather than the remaining abdominal viscera. Note also that sensitivity is limited in the absence of IV contrast. Liver: Grossly unremarkable. Gallbladder: Grossly unremarkable. Biliary tree: CBD mildly dilated to 10 mm tapering at the ampulla. No definite filling defect identified allowing for motion to suggest choledocholithiasis. Trace to mild central intrahepatic biliary dilatation also present. Pancreas grossly unremarkable. Other: Remaining abdominal viscera better evaluated on recent CT. MRI/MRCP Abdomen without Contrast IMPRESSION: 1. Motion limited noncontrast exam. 2. Redemonstrated mild biliary dilatation without definite filling defect ident ified allowing for motion to suggest choledocholithiasis. Findings could reflect ampullary stenosis or perhaps less likely an occult ampullary lesion, and would be optimally evaluated by ERCP. Correlate with serum bilirubin. 3. Additional description as above. Reading Location: [place]
[2024-10-22] MEDS: Pantoprazole Sodium 40 MG in 0.9% Normal Saline (100mL MB+) 100 ML 330 MG IV ×2 (12:14→22:07)
--- NOTE | 2024-10-22 14:00 | CASEMGMT ---
RN CM Face to Face with patient for initial transition planning/care coordination assessment. RN CM introduced self and role at [facility]. Patient lying in bed, alert and oriented. Patient willing to participate in assessment and is able to answer all questions appropriately. Care providers, pharmacy, and demographics verified. Strata: 2 PCP: Tushar Specialists: none Preferred Pharmacy: [facility] Insurance: [facility], [facility] other Prescription Benefit: yes Living Will/HPOA: yes, Florencio Centeno LNOK: , sister Living Arrangements: Patient lives with in a single story home with 2 steps and railing to enter the home. Patient states she is independent at home. Transportation: self, DME/HHC: Patient has shower chair, raised toilet, cane, walker, and grab bars at home. No previous HHC or SNF. Patient wishes to discharge home, denies need for home health at this time. Patient states she has no further needs or concerns at this time. CM to follow for discharge planning needs that may arise. Disposition Plan: Patient to discharge home with family support and follow-up plans in place. Bharati HOUSTON, RN, CM
[2024-10-22] MEDS: Lactated Ringers 1,000 ML 15 ML IV (14:28)
--- NOTE | 2024-10-22 14:30 | FLU_PTH ---
PATIENT: ROBI OLIVARES LOC: [facility] U#:[id number] AGE/SX: 73/F ROOM: [facility] RE10/21/[address]: Dr. Monico Patterson MD : 1950 BED: 1 DIS: 10/24/2024 SPEC #: [id number] RECD: 10/22/24 17:39 STATUS: SOUT REQ #: [id number] TRUE: 10/22/24 14:[address]: Heber Borrego DEPT: CYTOLOGY RECD BY: Kenneth Malik ENTERED: 10/23/24 08:52 SP TYPE: Fluid OTHR DR: DO Dr. Laurie Lauren MD Dr. Prakash Chand, MD Tissues: A - Bile duct, NOS Procedures: Special Stain Group II Surgery Specimen Level III Surgery Specimen Level IV Cytospin Fluid Comments: @ Ordering doctor for SSII edited from to @ by DENILSON at 10/23/24 0853 @ Ordering doctor for SUIII edited from to @ by DEINLSON at 10/23/24 0853 @ Ordering doctor for SUIV edited from to @ by DENILSON at 10/23/24 0853 @ Ordering doctor for CYSPIN edited from to @ by DENILSON at 10/23/24 0853 @ Submitting doctor edited from to @ by DENILSON at 10/23/24 0853 HEADER OPERATION: ERCP with pancreatic stent, brushings, balloon sweep PRE-OP DIAGNOSIS: Abdominal pain, vomiting, diarrhea, colitis, melena TISSUE SUBMITTED: A- Distal common bile duct brush tip fluid for cytology DIAGNOSIS CYTOLOGY A. Distal common bile duct brushing: * No malignant cells are identified CYTOLOGY STUDY Slides are reviewed. CYTOLOGY GROSS A. Received is 1 brush with 0.2 ml of yellow fluid and particles and 4 smears labeled with the patient's name and and designated per the requisition as Distal common bile duct brush tip. Submitted for cytology and cell block preparation. Mr 10/23/2024 CPT: 31180
--- NOTE | 2024-10-22 14:48 | PCM.PRE.AN2 ---
ASA Classification* ASA Classification ASA Classification: 3 Assessment & Plan Anesthesia* Anesthesia Assessment Anesthesia Assessment: Discussed sedation and/or anesthesia options, risks, benefits, and alternatives with patient/parents/legal guardian/POA. Questions invited. The patient/parents/legal guardian/POA seems to understand and agrees to proceed with anesthesia plan. Reviewed the physical assessment, medical history, allergy history and patient home medications list prior to surgery/procedure/anesthetic and documented any changes. Performed airway and anesthesia risk assessments. Anesthesia Type Anesthesia Type: General History Source History Obtained from:: Patient and Chart Anesthesia Focused Assessment* Temperature: 98.4 F Pulse Rate: 63 Blood Pressure: 135/73 Respiratory Rate: 16 Pulse Ox: 95 Oxygen Delivery Method: Room Air Airway Assessment Mouth opens: >3 cm Mallampati Score: III Teeth Condition: Dentures (Full upper dentures are out.) and Missing (Missing 2 teeth on the bottom. Rest of the teeth are tight.) Neck Range of motion (ROM): Full ROM Focused Labs Anesthesia Preop lab: CBC WBC 6.0 K/mm3 (4.4-11.0) 10/22/24 03:36 10/22/24 RBC 3.90 M/mm3 (4.2-5.4) L 10/22/24 03:36 10/22/24 Hgb 12.8 g/dL (12.0-15.0) 10/22/24 03:36 10/22/24 Hct 35.7 % (37-47) L 10/22/24 03:36 10/22/24 Plt Count 149 K/mm3 (150-450) L 10/22/24 03:36 10/22/24 CHEMISTRY Potassium 3.7 mmol/L (3.3-5.1) 10/22/24 03:36 10/22/24 Sodium 139 mmol/L (133-145) 10/22/24 03:36 10/22/24 Magnesium 2.0 mg/dL (1.5-2.2) 10/21/24 14:39 10/21/24 Phosphorus 1.3 mg/dL (2.7-4.5) L* 10/22/24 03:36 10/22/24 BUN 6 mg/dL (4-19) 10/22/24 03:36 10/22/24 Creatinine 0.56 mg/dL (0.70-1.20) L 10/22/24 03:36 10/22/24 Glucose 74 mg/dL (70-99) 10/22/24 03:36 10/22/24 POC Glucose 114 mg/dL (74-106) H 04/07/24 22:48 04/07/24 TSH 2.670 uIU/mL (0.300-4.200) 10/22/24 03:36 10/22/24 COAG PT 13.2 SECONDS (11.7-14.9) 04/07/24 21:40 04/07/24 Pre-Assessment Diagnosis/Proposed Procedure Planned Operative Procedure(s): Endoscopic retrograde cholangiopancreatography Anesthesia History Anesthesia History - meat stuffer: Anesthesia History - meat stuffer Hx Hospitalization Yes 01/19/16 15:21 Any Problems With Anesthesia No 01/19/16 15:21 Cholinesterase deficiency No 01/19/16 15:21 You/Your Family Experience No 01/19/16 15:21 fever (hyperthermia) with Relationship Recent Exposure to Contagious No 02/01/16 06:02 Disease Does patient have nerve No 01/19/16 15:21 stimulator Patient instructed to have device shut off --Does patient have Pacemaker or ICD? When Was Last Pacemaker Check QUESTION #4 FULL TEXT: You/Your Family Experience fever (hyperthermia) with Anesthesia Last Oral Intake Last Oral intake: Last Oral Intake NPO since Meds taken in AM with sips of water? Meds patient instructed to take am of surgery Any additional information?: Yes NPO since: 00:00 Meds taken in AM with sips of water?: No PONV PONV - meat stuffer: PONV - meat stuffer Female HX of Motion Sickness HX of N/V After Surgery Non-Smoker Duration of Surgery greater than 60 minutes Number of Risk Factors PONV Score Height & Weight Height & Weight: Anesthesia: Height & Weight Height 5 ft 3 in 10/22/24 11:14 Weight: 37.7 kg 10/22/24 11:14 Body Mass Index (BMI) 14.7 10/22/24 03:25 Respiratory Assessment Respiratory Assessment - meat stuffer: Respiratory Tract Infection Hx - meat stuffer Hx Respiratory Tract Infection No 01/19/16 15:21 STOP Sleep Apnea STOP Sleep Apnea - meat stuffer: STOP Sleep Apnea - meat stuffer Hx Hypertension Yes 10/22/24 14:37 Hx Sleep Apnea Yes 10/21/24 21:00 CPAP No 10/21/24 21:00 BIPAP No 10/21/24 21:00 Do you snore loudly (louder than talking or can be heard Do you often feel tired/ fatigued/ sleepy during daytime? Has anyone observed you stop breathing during sleep? STOP Results Positive 10/21/24 21:00 QUESTION #5 FULL TEXT : Do you snore loudly (louder than talking or can be heard through closed doors)? Tobacco Use History Tobacco Use History - meat stuffer: Tobacco Use History - meat stuffer Tobacco Use Smoking Status Former smoker 10/21/24 21:00 Hx Tobacco Use No 10/21/24 21:00 Years Smoking 58 10/21/24 21:00 Packs Smoked per Day 0.5 10/21/24 21:00 Smoking Cessation Date was Yes - quit smoking within 15 10/21/24 21:00 within the last 15 years years Hx Smoking Cessation Date Hx Smoking Cessation Counseling Hematologic Medial History Hematologic Hx - meat stuffer: Hematologic Medical Hx - water valve mechanic Hx of Blood Transfusion Yes 10/21/24 21:00 Hx of Transfusion in last 3 No 10/21/24 21:00 Months Date of Last Transfusion (if within last 3 months) Ever experience any problems No 10/21/24 21:00 with transfusion(s)? Specify any problems Hx of Preganancy in last 3 No 10/21/24 21:00 Months Nurse Filling Out Transfusion CDANTONE 10/21/24 21:00 & Questions: Date: 10/21/24 10/21/24 21:00 Time: 21:10 10/21/24 21:00 Patient unable to answer at this time (ie. confused, unrespo /Reproduction History /Reproductive History - meat stuffer: /Reproductive Hx- meat stuffer Hx Now Gestational Age (in weeks): EDC: Hx Hx Para Hx Section SAB Active Medications Active Medications: Current Medications Generic Name Dose Route Start Last Admin Trade Name Freq PRN Reason Stop Dose Admin Acetaminophen 500 mg 10/21/24 20:59 Acetaminophen 500 Mg Tablet PO Q6H PRN PRN Pain 1-5/10 or Fever Diphenhydramine HCl 25 mg 10/21/24 20:59 Diphenhydramine 50 Mg/Ml Syringe IV Q4H PRN PRN ALLERGIES Hydralazine HCl 5 mg 10/21/24 20:59 Hydralazine 20 Mg/Ml Vial IV Q8H PRN PRN SBP GREATER THAN 160 Protocol Levofloxacin 750 mg in 150 mls @ 100 mls/hr 10/21/24 18:52 10/21/24 21:31 Levaquin Iv IV Infused Q48 MEENAKSHI Infusion Metronidazole 500 mg in 100 mls @ 100 mls/hr 10/21/24 18:52 10/22/24 14:43 Flagyl IV 100 mls/hr TID MEENAKSHI Administration Pantoprazole Sodium 40 mg/ 110 mls @ 330 mls/hr 10/21/24 21:00 10/22/24 12:45 Sodium Chloride IV Infused BID MEENAKSHI Infusion Sodium Chloride 250 mls @ 15 mls/hr 10/21/24 21:03 IV .[id number] PRN Saline Flush Sodium Chloride 250 mls @ 15 mls/hr 10/21/24 21:03 IV .[id number] PRN Additional IVPB Infusion Lactated Ringer's 1,000 mls @ 15 mls/hr 10/22/24 14:15 10/22/24 14:28 IV 15 mls/hr .Q48H MEENAKSHI Administration Morphine Sulfate 2 mg 10/21/24 20:59 Morphine 2 Mg/Ml Syringe IV Q4H PRN PRN Pain Score 6-10 Nitroglycerin 0.4 mg 10/21/24 21:03 Nitroglycerin (Inpatient Use) 0.4 Mg Tab.Subl SL Q5M PRN CARDIAC/CHEST PAIN Ondansetron HCl 4 mg 10/21/24 20:59 Ondansetron 4 Mg/2 Ml Vial IV Q8H PRN PRN NAUSEA/VOMITING Sodium Chloride 10 - 40 ml 10/21/24 21:03 0.9% Saline Lock 10 Ml Syringe IV UD PRN SALINE FLUSH PFSH Medical History Alcohol abuse Bipolar disorder Depression Chronic pain Rheumatoid arthritis Osteoporosis GERD (gastroesophageal reflux disease) Former smoker Atrial fibrillation Hypertension Myocardial infarct Migraines Atherosclerotic heart disease of [place] coronary artery without angina pectoris Pure hypercholesterolemia IBS (irritable bowel syndrome) Hypothyroidism Presence of stent in coronary artery (~08/08/12) Atherosclerotic heart disease of [place] coronary artery without angina pectoris Benign essential HTN Arteriosclerotic heart disease (ASHD) Home Medications ?Medication ?Instructions ?Recorded ?Last Taken ?Type atenolol 25 mg tablet 25 mg PO DAILY 06/04/13 02/01/16 05:00 History clopidogrel 75 mg tablet 75 mg PO DAILY 06/04/13 08/19/24 History nitroglycerin 0.4 mg sublingual 0.4 mg sublingual Q5M PRN Chest 06/04/13 Unknown History tablet Pain pantoprazole 40 mg tablet,delayed 20 mg PO BID 06/04/13 02/01/16 05:00 History release bupropion HCl 100 mg tablet,12 hr 100 mg PO DAILY 06/28/18 Unknown History sustained-release (Wellbutrin SR) sertraline 100 mg tablet 100 mg PO DAILY 06/28/18 08/19/24 History levothyroxine 50 mcg tablet 50 mcg PO DAILY 06/10/19 Unknown History atorvastatin 80 mg tablet 80 mg PO QHS #30 tabs 12/16/19 08/19/24 Rx amlodipine 10 mg tablet 10 mg PO DAILY 10/21/24 08/19/24 History quetiapine 100 mg tablet 100 mg PO QHS 10/21/24 08/19/24 History sertraline 50 mg tablet 50 mg PO DAILY 10/21/24 08/19/24 History valacyclovir 500 mg tablet 500 mg PO DAILY 10/21/24 08/19/24 History Allergy/AdvReac Type Severity Reaction Status Date / Time codeine Allergy Severe Swelling Verified 10/21/24 13:54 propoxyphene HCl (From Allergy Severe Other Verified 10/21/24 13:54 Darvon) Penicillins AdvReac Intermediate Nausea/Vom/ Verified 10/21/24 13:54 Diarrhea Family History Brother CVA (cerebral vascular accident) Heart disease Cancer Surgical History History of appendectomy Presence of coronary angioplasty implant and graft (~08/08/12) History of aorto-femoral bypass History of heart artery stent History of left knee surgery History of hysterectomy History of lumbar surgery History of hysterectomy PAD (peripheral artery disease) Social History Smoking Status: Former smoker alcohol intake: never substance use type: does not use Review of Systems (Anesthesia) ROS Narrative System reviewed and no additional complaints, except as documented.
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
--- NOTE | 2024-10-22 15:21 | CHAPLAIN ---
Type of Pastoral Visit ___ Initial Visit ___ Follow-up Visit ___ On-call Visit ___ General Patient Visit ___ Spiritual Assessment ___ Family Conference ___ Bereavement ___ Rapid Response ___ Code Blue ___ Other (describe below) Pastoral Care Referral From ___ Patient ___ Family ___ Nurse ___ Physician ___ Manager Supply ___ Regional Facilities Specialist ___ Other (describe below) Sacrament/Intervention ___ Active listening ___ Anointing ___ Druze ___ Bereavement ___ Communion ___ Carola exploration ___ ___ Life review ___ Prayer ___ Reconciliation ___ Sacrament of Sick ___ Supportive presence ___ Wedding ___ Other (describe below) Pastoral Comments two attempts made for this visit; pt was busy with staff at first attempt; at second try the patient and bed were out of the room; left a calling card
--- NOTE | 2024-10-22 16:30 | RAD_ITS ---
EXAM: ENDOSCOPIC RETROGRADE CHOLANGIOPANCREATOGRAPHY WITH MOBILE C-ARM CLINICAL HISTORY: ABDOMINAL PAIN. COMPARISON: NO RELEVANT PRIOR. TECHNIQUE: Eleven (10) images were acquired with mobile C-arm during ERCP procedure. FINDINGS: Endoscope projects over the epigastric region. Marked levoscoliosis of the lumbar spine. Status post surgical fusion with instrumentation, lumbar spine. Normal contrast opacified intrahepatic and extrahepatic bile ducts. No intraluminal filling defects are demonstrated. No strictures are demonstrated. Contrast noted opacifying the gallbladder. No contrast material is visualized in the duodenum. No intraperitoneal extravasation of contrast. Fluoroscopy: 83.7 sec Dose: 10.35 mGy RAD/ERCP Biliary/Pancreas IMPRESSION: No contrast visualized in the duodenum on this ERCP procedure. Otherwise unremarkable procedure. Reading Location: [facility]
--- NOTE | 2024-10-22 17:27 | OP.ERCP_ITS ---
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 Refer to note in patient chart for documentation of history and physical. Patient has symptoms of acute abdominal cramping, acute right upper quadrant abdominal pain and acute vomiting. Complications: No immediate complications. Procedure: Pre-Anesthesia Assessment: - Prior to the procedure, a History and Physical was performed, and patient medications and allergies were reviewed. The patient is competent. The risks and benefits of the procedure and the sedation options and risks were discussed with the patient. All questions were answered and informed consent was obtained. Patient identification and proposed procedure were verified by the physician in the pre-procedure area. Mental Status Examination: alert and oriented. Airway Examination: normal oropharyngeal airway and neck mobility. Respiratory Examination: clear to auscultation. CV Examination: normal. Prophylactic Antibiotics: The patient does not require prophylactic antibiotics. Prior Anticoagulants: The patient has taken no anticoagulant or antiplatelet agents except for NSAID medication. ASA Grade Assessment: II - A patient with mild systemic disease. After reviewing the risks and benefits, the patient was deemed in satisfactory condition to undergo the procedure. The anesthesia plan was to use moderate sedation / analgesia (conscious sedation). Immediately prior to administration of medications, the patient was re-assessed for adequacy to receive sedatives. The heart rate, respiratory rate, oxygen saturations, blood pressure, adequacy of pulmonary ventilation, and response to care were monitored throughout the procedure. The physical status of the patient was re-assessed after the procedure. After obtaining informed consent, the scope was passed under direct vision. Throughout the procedure, the patient's blood pressure, pulse, and oxygen saturations were monitored continuously. The Duodenoscope was introduced through the mouth, and advanced to the duodenum and used to inject contrast into the bile duct and ventral pancreatic duct. The ERCP was accomplished without difficulty. The patient tolerated the procedure well. Scope In: 4:31:50 PM Scope Out: 5:17:26 PM Total Procedure Duration Time 0 hours 45 minutes 36 seconds Findings: The internet security specialist film was normal. The esophagus was successfully intubated under direct vision. The scope was advanced to a normal major papilla in the descending duodenum without detailed examination of the pharynx, larynx and associated structures, and upper GI tract. The upper GI tract was grossly normal. The ventral pancreatic duct was deeply cannulated with the short-nosed traction sphincterotome. Contrast was injected. I personally interpreted the pancreatic duct images. There was brisk flow of contrast through the ducts. Image quality was adequate. Contrast extended to the proximal pancreatic duct. Opacification of the ventral pancreatic duct in the head of the pancreas was successful. The maximum diameter of the ducts was 3 mm. Localized irregularity of the pancreatic duct was seen in the ventral pancreatic duct in the head of the pancreas. A long 0.025 inch Jagwire was passed into the ventral pancreatic duct. A 5 mm ventral pancreatic sphincterotomy was made with a traction (standard) sphincterotome using ERBE electrocautery. There was no post-sphincterotomy bleeding. To discover objects, the biliary tree was swept with a 6 mm balloon starting at the main pancreatic duct. Debris was swept from the duct. One 5 Fr by 7 cm temporary stent was placed 7 cm into the ventral pancreatic duct. Clear fluid flowed through the stent. The stent was in good position. A long 0.025 inch Jagwire was passed into the biliary tree. The short-nosed traction sphincterotome was passed over the guidewire and the bile duct was then deeply cannulated. Contrast was injected. Opacification of the entire opacified area and entire biliary tree was successful. The maximum diameter of the ducts was 10 mm. The lower third of the main bile duct contained a single localized stenosis 6 mm in length. The biliary orifice was stenotic. This appeared benign. A 5 mm biliary sphincterotomy was made with a traction (standard) sphincterotome using ERBE electrocautery. There was no post-sphincterotomy bleeding. The biliary tree was swept with a 12 mm balloon starting at the left intrahepatic duct(s). Sludge was swept from the duct. All stones were removed. Cells for cytology were obtained by brushing in the lower third of the main bile duct. One 10 Fr by 5 cm temporary stent was placed 5 cm into the common bile duct. Bile flowed through the stent. The stent was in good position. Impression: - Biliary papillary stenosis, benign. - A single localized biliary stricture was found in the lower third of the main bile duct. The stricture was indeterminate. - An irregularity was found in the ventral pancreatic duct in the head of the pancreas. - Choledocholithiasis was found. Complete removal was accomplished by biliary sphincterotomy and balloon extraction. - A pancreatic sphincterotomy was performed. - The biliary tree was swept and debris was found. - One temporary stent was placed into the ventral pancreatic duct. - A biliary sphincterotomy was performed. - The biliary tree was swept. - Cells for cytology obtained in the lower third of the main duct. - One temporary stent was placed into the common bile duct. Procedure Code(s): --- Professional --- 50459, Endoscopic retrograde cholangiopancreatography (ERCP); with placement of endoscopic stent into biliary or pancreatic duct, including pre- and post-dilation and guide wire passage, when performed, including sphincterotomy, when performed, each stent [id number], 59, Endoscopic retrograde cholangiopancreatography (ERCP); with placement of endoscopic stent into biliary or pancreatic duct, including pre- and post-dilation and guide wire passage, when performed, including sphincterotomy, when performed, each stent [id number], Endoscopic retrograde cholangiopancreatography (ERCP); with removal of calculi/debris from biliary/pancreatic duct(s) 54776, 26, Endoscopic catheterization of the pancreatic ductal system, radiological supervision and interpretation CPT copyright 2021 [employer]. All rights reserved. The codes documented in this report are preliminary and upon manager enterprise review may be revised to meet current compliance requirements. Heber Borrego DO 10/22/2024 5:27:16 PM This report has been signed electronically. Number of Addenda: 0 Note Initiated On: 10/22/2024 3:53 PM
--- NOTE | 2024-10-22 17:27 | OP.CCLET_ITS ---
10/22/2024 Laurie Finley [address] [place] [address] Re : ERCP procedure for Celena Jacobo Dear Dr. Finley This procedure was performed on Tuesday, October 22, 2024. My impressions and recommendations are as follows: Impressions : - Biliary papillary stenosis, benign. - A single localized biliary stricture was found in the lower third of the main bile duct. The stricture was indeterminate. - An irregularity was found in the ventral pancreatic duct in the head of the pancreas. - Choledocholithiasis was found. Complete removal was accomplished by biliary sphincterotomy and balloon extraction. - A pancreatic sphincterotomy was performed. - The biliary tree was swept and debris was found. - One temporary stent was placed into the ventral pancreatic duct. - A biliary sphincterotomy was performed. - The biliary tree was swept. - Cells for cytology obtained in the lower third of the main duct. - One temporary stent was placed into the common bile duct. Recommendations : My findings are described in the full procedure note, which is enclosed. If I can be of further assistance, please feel free to contact me at . Sincerely, Heber Borrego DO 10/22/2024 5:27:16 PM This report has been signed electronically.
--- NOTE | 2024-10-22 17:44 | PCM.POST.ANE ---
Anesthesia: Postop Eval I Current Vital Signs Temperature: 96.9 F Pulse Rate: 76 Blood Pressure: 134/74 Respiratory Rate: 16 Pulse Ox: 98 Oxygen Delivery Method: Room Air Assessment Airway patent: Yes Spontaneous unlabored respirations: Yes Mental status: Awake nausea: No Vomiting: No Anesthesia Complication: No Fluid Hydration Crystalloid volume administer (ml): 300 Total IV fluid infused: 300 Progress Note Anesthesia document: Postop Eval 1 completed: Yes
--- NOTE | 2024-10-22 18:54 | PCM.POSTANE2 ---
Anesthesia Postop Eval I Sum Postop Eval Completion status Anesthesia document: Postop Eval 1 completed: Yes Anesthesia Postop Eval I Summary Anesthesia Postop Eval I Summary: Anesthesia Postop Eval I: Assessment Summary Airway patent Yes 10/22/24 17:48 Spontaneous unlabored Yes 10/22/24 17:48 respirations Mental status Awake 10/22/24 17:48 nausea No 10/22/24 17:48 Vomiting No 10/22/24 17:48 Anesthesia Postop Eval I: Fluid Summary Crystalloid volume administer 300 10/22/24 17:48 (ml) Colloids volume administered ( ml) Blood Product volume administered (ml) Total IV fluid infused 300 10/22/24 17:48 Anesthesia Postop Eval I: Summary Notes Anesthesia Complication No 10/22/24 17:48 Anesthesia Complication Comment: Post-operative progress note Anesthesia: Postop Eval II Evaluation Mental status: Awake and Calm Pain Level: 1 nausea: No Vomiting: No Complications Anesthesia Complication: No
[2024-10-22] MEDS: hydrALAZINE 20 MG/ML Vial 5 MG IV (19:55)
[2024-10-22] MEDS: 0.9% Saline Lock 10 ML Syringe IV (19:56)
[2024-10-22] MEDS: Lidocaine 2% Viscous15 ML UDC 15 ML PO (20:18)
[2024-10-22] MEDS: Mag Hydrox/Al Hydrox/Simeth 30 ML UDC PO (20:18)
[2024-10-22] MEDS: 0.9% Normal Saline (250mL Bag) 250 ML 15 ML IV (22:15)
[2024-10-22] MEDS: Saliva Substitute 237 ML BOTTLE 15 ML MUCOUS MEM (22:50)
[2024-10-23 02:06] VITALS: BP 155/71; PULSE 75; RESP 16; TEMP 36.5; O2SAT 100
[2024-10-23] MEDS: Acetaminophen 500 MG Tablet PO (02:17)
[2024-10-23 02:58] VITALS: BMI 14.6
[2024-10-23] MEDS: 0.9% Saline Lock 10 ML Syringe IV ×2 (04:50→16:42)
[2024-10-23 06:06] VITALS: BP 153/76; PULSE 75; RESP 16; TEMP 36.8; O2SAT 98
[2024-10-23 07:27] LABS: Phosphorus 2.1 mg/dL (2.7-4.5)
[2024-10-23 07:29] LABS: Vitamin D,25 Hydroxy 38.8 ng/mL (30-100)
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
[2024-10-23 09:46] VITALS: BP 131/83; PULSE 84; RESP 16; TEMP 36.9; O2SAT 100
[2024-10-23] MEDS: Enoxaparin 40 MG/0.4 ML Syringe SC (10:58)
[2024-10-23] MEDS: Na Biphos/Potassium Phosphate PACKET 1 PACKET PO ×3 (10:58→21:15)
[2024-10-23] MEDS: Pantoprazole Sodium 40 MG Tablet PO ×2 (10:58→21:15)
[2024-10-23 11:05] LABS: AST(SGOT) 28 U/L (<=31); Alanine Aminotransfer ALT/SGPT 28 U/L (<=34); Albumin, Serum 3.2 g/dL (3.4-4.8); Alkaline Phosphatase 60 U/L (35-104); Bilirubin, Direct 0.11 mg/dL (0.00-0.30); Globulin 2.6 g/dL (2.2-4.2); Protein, Total 5.8 g/dL (5.9-8.4); Total Bilirubin 0.28 mg/dL (0.00-1.30)
[2024-10-23 11:22] LABS: LDH 264 U/L (84-246)
[2024-10-23 14:16] VITALS: BP 126/73; PULSE 78; RESP 18; TEMP 36.6; O2SAT 97
[2024-10-23] MEDS: DiphenhydrAMINE 50 MG/ML Syringe 25 MG IV (16:42)
[2024-10-23] MEDS: Ensure Plus High Protein 120 ML LIQUID PO ×2 (17:52→21:15)
[2024-10-23 18:25] VITALS: BP 121/82; PULSE 83; RESP 16; TEMP 36.3; O2SAT 98
[2024-10-23 21:00] VITALS: BP 142/77; PULSE 84; RESP 16; TEMP 36.9; O2SAT 99
[2024-10-24 03:10] VITALS: BP 145/89; PULSE 71; RESP 16; TEMP 36.7; O2SAT 99
[2024-10-24] MEDS: Na Biphos/Potassium Phosphate PACKET 1 PACKET PO ×2 (05:39→14:11)
[2024-10-24 06:00] VITALS: BMI 14.6
[2024-10-24 07:18] LABS: Absolute Lymphocyte Count 1.98 X10^3/uL (0.83-4.51); Absolute Neutrophil Count 5.1 X10^3/uL (2.0-7.7); Basophil# 0.02 X10^3/uL; Basophil% 0.2 % (0-1); Eosinophil# 0.09 X10^3/uL; Eosinophils% 1.1 % (0-5); Hematocrit 37.7 % (37-47); Hemoglobin 13.4 g/dL (12.0-15.0); Lymphocyte # 1.98 X10^3/ul (0.83-4.51); Mean Corp Hgb Conc 35.5 g/dL (32-36); Mean Corpuscular Hgb 32.8 pg (27.0-32.0); Mean Corpuscular Volume 92.2 fL (81-99); Mean Platelet Vol. 10.8 fl (6.2-12.0); Monocyte# 1.07 X10^3/uL; NRBC Flagged by Analyzer 0 % (0-5); Neutrophil # 5.08 X10^3/uL (2.7-7.7); Neutrophil % 61.5 % (47-70); Platelet Count 146 K/mm3 (150-450); RBC Distribution Width CV 14.7 % (11.6-14.6); RBC Distribution Width SD 50.3 fl (35.1-43.9); Red Blood Count 4.09 M/mm3 (4.2-5.4); White Blood Count 8.3 K/mm3 (4.4-11.0)
[2024-10-24 07:44] LABS: AST(SGOT) 20 U/L (<=31); Alanine Aminotransfer ALT/SGPT 23 U/L (<=34); Albumin, Serum 3.3 g/dL (3.4-4.8); Alkaline Phosphatase 61 U/L (35-104); Anion Gap 13 (5-15); BUN 5 mg/dL (4-19); BUN/Creat Ratio 8.6 RATIO (10-20); Bilirubin, Direct 0.18 mg/dL (0.00-0.30); Carbon Dioxide 24.3 mmol/L (21.0-32.0); Chloride 100 mmol/L (98-108); Creatinine, Serum 0.61 mg/dL (0.70-1.20); EST Glomerular Filtration Rate 94 (>60); Estimated Creatinine Clearance 36.62 ml/min (50-250); Globulin 2.6 g/dL (2.2-4.2); Glucose 108 mg/dL (70-99); Potassium 3.8 mmol/L (3.3-5.1); Protein, Total 5.9 g/dL (5.9-8.4); Sodium Level 137 mmol/L (133-145); Total Bilirubin 0.37 mg/dL (0.00-1.30)
[2024-10-24 08:08] LABS: GGTP 25 IU/L (0-60)
[2024-10-24 09:08] LABS: Anti-Centromere B Ab <0.2 AI (0.0-0.9); Anti-Chromatin <0.2 AI (0.0-0.9); Anti-Jo <0.2 AI (0.0-0.9); Anti-Scleroderma-70 AB <0.2 AI (0.0-0.9); Anti-dsDNA Ab <1 IU/mL (0-9); RNP Ab <0.2 AI (0.0-0.9); SJOGREN'S Anti-SS-A test < 0.2 AI (0.0-0.9); SJOGREN'S Anti-SS-B test < 0.2 AI (0.0-0.9); Smith Ab <0.2 AI (0.0-0.9)
[2024-10-24 09:10] VITALS: BP 129/99; PULSE 88; RESP 16; TEMP 36.4; O2SAT 98
[2024-10-24] MEDS: Saliva Substitute 237 ML BOTTLE 15 ML MUCOUS MEM (09:17)
[2024-10-24] MEDS: Pantoprazole Sodium 40 MG Tablet PO (09:17)
[2024-10-24] MEDS: Enoxaparin 40 MG/0.4 ML Syringe SC (09:18)
[2024-10-24] MEDS: Ensure Plus High Protein 120 ML LIQUID PO ×2 (09:22→14:12)
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
[2024-10-24] MEDS: Acetaminophen 500 MG Tablet PO (10:44)
--- NOTE | 2024-10-24 11:00 | DCINST_ITS ---
Discharge Instructions Diet Discharge Diet: No restrictions DC O2, CPAP, BIPAP needs Home O2 Discharge instructions: No Dressing / Incision Discharge Activity: Return to Normal Activity Weight Bearing Status: Weight bearing as tolerated Dressing / Incision Call your doctor if you observe: Fever of 101 or Higher, Coldness, Increased Pain, Numbness or Tingling, Change in Color, Inability to urinate, Inability to have a bowel movement, Shortness of breath, Dizziness, Fainting spells, Swelling in the ankles, Chest pain, Prolonged hiccupping, Increased palpitations (irregular heartbeat) and Calf discomfort Follow Up Care When: IN 2 WEEKS Test Results: Test results from this visit will be discussed in further detail at your follow- up appointment, if applicable. Discharge Plan Admission Admit Date/Time: 10/21/24 18:40 Primary Reason for Your Visit: Loss of appetite loss of weight Attending Provider: Monico Patterson Primary Care Provider: Laurie Finley Consulting Providers: Mango Dutta Discharge Orders/Prescriptions Prescriptions: New Biotene Dry Mouth Oral Rinse Mouthwash 15 ml mucous membrane 4X/DAYCM 30 Days Qty: 1000 0RF potassium, sodium phosphates 280-160-250 mg Powder In Packet 1 packet PO TID 5 Days Qty: 15 0RF Continued bupropion HCl [Wellbutrin SR] 100 mg tablet sustained-release 12 hr 100 mg PO DAILY atenolol 25 MG tablet 25 mg PO DAILY Patient Comments: BP clopidogrel 75 MG tablet 75 mg PO DAILY Patient Comments: ANTIPLATLET nitroglycerin 0.4 MG tablet 0.4 mg Sublingual Q5M PRN (Reason: Chest Pain) sertraline 100 mg tablet 100 mg PO DAILY Patient Comments: MOOD levothyroxine 50 mcg tablet 50 mcg PO DAILY Patient Comments: THYROID valacyclovir 500 mg tablet 500 mg PO DAILY quetiapine 100 mg tablet 100 mg PO QHS amlodipine 10 mg tablet 10 mg PO DAILY sertraline 50 mg tablet 50 mg PO DAILY atorvastatin 80 mg tablet 80 mg PO QHS Qty: 30 12RF Changed pantoprazole 40 MG tablet 20 mg PO DAILY 30 Days Qty: 0 0RF Patient Comments: STOMACH Referrals / Follow Up: Laurie Finley MD [Primary Care Provider] - 10/31/24 2:00 pm ( Appointment is with ALEJANDRA Pyle. ) Swetha Cheatham PA [Med Staff - Adv Practice Prof] - 10/31/24 1:30 pm () Disposition Discharge Orders: Discharge Patient (Routine); Ordered 10/24/24 Ordered By: Dr. Monico Patterson
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
[2024-10-24 14:13] VITALS: BP 119/80; PULSE 76; RESP 16; TEMP 36.4; O2SAT 98
--- NOTE | 2024-10-24 14:45 | CASEMGMT ---
ZORAIDA PATINO called to discuss discharge planning. ZORAIDA PATINO updated regarding recommendations for therapy. agreeable to outpatient therapy at [facility] and requested referral be sent with request for [facility] to call to schedule appt. had no further questions or concerns. ZORAIDA PATINO updated discharge plan.
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
[2024-10-25 15:08] LABS: Vitamin D 1,25-Dihydroxy 52.1 pg/mL (24.8-81.5)
[2024-10-28 15:08] LABS: ACCA 32 units (0-90); ALCA 2 units (0-60); AMCA 7 units (0-100); Albumin 3.3 g/dL (2.9-4.4); Alpha-1-Globulins 0.2 g/dL (0.0-0.4); Alpha-2-Globulins 0.7 g/dL (0.4-1.0); Angiotensin Convert Enzyme 55 U/L (14-82); Carbohydrate AG 19-9 7 U/mL (0-35); Carcinoembryonic Antigen 11.1 ng/mL (0.0-4.7); Cytoplasmic Ab (C-ANCA) <1:20 titer (Neg:<1:20); Deamidated Gliadin IgA 3 units (0-19); Deamidated Gliadin IgG 2 units (0-19); Endomysial Antibody IgA Negative (Negative); Gamma Globulin 0.9 g/dL (0.4-1.8); IgG, Quant 955 mg/dL (586-1602); Immunoglobulin A 135 mg/dL (64-422); Immunoglobulin E 333 IU/mL (6-495); Immunoglobulin G, Subclass 1 427 mg/dL (248-810); Immunoglobulin G, Subclass 2 217 mg/dL (130-555); Immunoglobulin G, Subclass 3 27 mg/dL (15-102); Immunoglobulin G, Subclass 4 52 mg/dL (2-96); Immunoglobulin M 161 mg/dL (26-217); PROEL- TOTAL PROTEIN 5.8 g/dL (6.0-8.5); Perinuclear Ab (P-ANCA) <1:20 titer (Neg:<1:20); gASCA 29 units (0-50); t-Transglutaminase IgA <2 U/mL (0-3)
== END 2024-10-24 15:20 | disposition home or self-care (01) | DRG 444 ==
LOC: ED 18:38 → PCU 19:53
PROVIDERS: Internal Medicine Gastroenterology; Admitting Provider Internal Medicine; Emergency Provider Emergency Medicine; PCP Internal Medicine; Referring Provider Internal Medicine; Visit Provider Internal Medicine
PROC: 0FC98ZZ Extirpation of Matter from Common Bile Duct, Via Natural or Artificial Opening Endoscopic (ICD-10-PCS; CPT 43260; principal; 2024-10-22 14:10)
DX: K80.51 Calculus of bile duct without cholangitis or cholecystitis with obstruction (principal); E43 Unspecified severe protein-calorie malnutrition; R64 Cachexia; T74.11XA Adult physical abuse, confirmed, initial encounter; K92.1 Melena; Z68.1 Body mass index [BMI] 19.9 or less, adult; E83.39 Other disorders of phosphorus metabolism; F31.9 Bipolar disorder, unspecified; I10 Essential (primary) hypertension; E03.9 Hypothyroidism, unspecified; E87.6 Hypokalemia; K83.8 Other specified diseases of biliary tract; K52.9 Noninfective gastroenteritis and colitis, unspecified; E78.00 Pure hypercholesterolemia, unspecified; I25.10 Atherosclerotic heart disease of native coronary artery without angina pectoris; E83.52 Hypercalcemia; K21.9 Gastro-esophageal reflux disease without esophagitis; F41.8 Other specified anxiety disorders; M17.12 Unilateral primary osteoarthritis, left knee; D13.5 Benign neoplasm of extrahepatic bile ducts; Z95.5 Presence of coronary angioplasty implant and graft; Z87.891 Personal history of nicotine dependence; Z79.02 Long term (current) use of antithrombotics/antiplatelets; Z90.710 Acquired absence of both cervix and uterus; T50.905A Adverse effect of unspecified drugs, medicaments and biological substances, initial encounter
CPT/HCPCS: 36415; 71046; 74177; 74181; 74330; 76000; 80048; 80053; 80061; 80076; 81001; 82150; 82164; 82306; 82378; 82652; 82784; 82785; 82787; 82977; 83516; 83615; 83690; 83735; 83970; 84100; 84165; 84443; 84484; 85025; 86036; 86037; 86225; 86235; 86255; 86301; 86334; 86671; 86850; 86900; 86901; 87506; 88108; 88304; 88305; 88313; 93005; 97116; 97162; 97803; 99285; C2625; Q9967; A4216; J2405

== ENCOUNTER 2024-12-12 21:36 | Inpatient (IN) | payer MEDICARE, OTHER, SELFPAY ==
--- NOTE | 2024-12-12 03:20 | RAD_ITS ---
PROCEDURE: CHEST 1 VIEW (PORTABLE) 12/13/2024 REASON FOR EXAM: PREOPERATIVE TECHNIQUE: Frontal view of the chest. COMPARISON: 10/21/2024 FINDINGS: Normal heart size. Calcified aorta. Well inflated lungs. No consolidation, effusion, or pneumothorax. Old rib fractures. Old granulomatous disease. RAD/Chest 1 View (Portable) IMPRESSION: No acute chest findings. Reading Location: [place] [address]
[2024-12-12 21:37] VITALS: BP 117/73; PULSE 77; RESP 17; TEMP 37.2; O2SAT 99
--- NOTE | 2024-12-12 22:07 | ED.VIS.LOWEX ---
HPI History of Present Illness Chief Complaint: Lower Extremity Injury Narrative Narrative: 73-year-old female presents via EMS with right hip pain status post fall. She states that she was in her home, walking down the hallway, and thinks that she was doing too many things at once. She was wearing shoes but she slipped and fell onto her right hip. She was unable to get up. She denies hitting her head or loss of consciousness, no other injury. She has pain diffusely throughout her right hip. [facility] Medical History Abnormal magnetic resonance cholangiopancreatography (MRCP) Alcohol abuse Bipolar disorder Depression Chronic pain Rheumatoid arthritis Osteoporosis GERD (gastroesophageal reflux disease) Former smoker Atrial fibrillation Hypertension Myocardial infarct Migraines Atherosclerotic heart disease of [place] coronary artery without angina pectoris Pure hypercholesterolemia IBS (irritable bowel syndrome) Hypothyroidism Presence of stent in coronary artery (~08/08/12) Atherosclerotic heart disease of [place] coronary artery without angina pectoris Benign essential HTN Arteriosclerotic heart disease (ASHD) Home Medications ?Medication ?Instructions ?Recorded ?Last Taken ?Type atenolol 25 mg tablet 25 mg PO DAILY 06/04/13 02/01/16 05:00 History clopidogrel 75 mg tablet 75 mg PO DAILY 06/04/13 08/19/24 History nitroglycerin 0.4 mg sublingual 0.4 mg sublingual Q5M PRN Chest 06/04/13 Unknown History tablet Pain bupropion HCl 100 mg tablet,12 hr 100 mg PO DAILY 06/28/18 Unknown History sustained-release (Wellbutrin SR) sertraline 100 mg tablet 100 mg PO DAILY 06/28/18 08/19/24 History levothyroxine 50 mcg tablet 50 mcg PO DAILY 06/10/19 Unknown History atorvastatin 80 mg tablet 80 mg PO QHS #30 tabs 12/16/19 08/19/24 Rx amlodipine 10 mg tablet 10 mg PO DAILY HTN 10/21/24 08/19/24 History sertraline 50 mg tablet 50 mg PO DAILY 10/21/24 08/19/24 History valacyclovir 500 mg tablet 500 mg PO DAILY 10/21/24 08/19/24 History pantoprazole 40 mg tablet,delayed 20 mg (1/2 x 40 mg) PO DAILY 30 10/24/24 02/01/16 05:00 Rx release days #0 tabs potassium, sodium phosphates 280 1 packet PO TID 5 days #15 ea 10/24/24 Unknown Rx mg-160 mg-250 mg oral powder packet saliva substitute combo no.9 15 ml mucous membrane 4X/DAYCM 1 10/24/24 Unknown Rx (Biotene Dry Mouth Oral Rinse month #1,000 mL mouthwash) cholecalciferol (vitamin D3) 125 125 mcg PO DAILY 12/12/24 Unknown History mcg (5,000 unit) tablet Allergy/AdvReac Type Severity Reaction Status Date / Time codeine Allergy Severe Swelling Verified 12/12/24 21:44 propoxyphene HCl (From Allergy Severe Other Verified 12/12/24 21:44 [place]) Penicillins AdvReac Intermediate Nausea/Vom/ Verified 12/12/24 21:44 Diarrhea Family History Brother CVA (cerebral vascular accident) Heart disease Cancer Surgical History History of appendectomy Presence of coronary angioplasty implant and graft (~08/08/12) History of aorto-femoral bypass History of heart artery stent History of left knee surgery History of hysterectomy History of lumbar surgery History of hysterectomy PAD (peripheral artery disease) Social History household members: spouse Smoking Status: Current some day smoker tobacco type: cigarettes alcohol intake: never substance use type: does not use ROS ROS ED ROS Narrative Review of systems positive for right hip pain. Denies hitting head or loss of consciousness, no neck pain, no other injury. EXAM Physical Exam Narrative Exam Narrative: GCS 15. ABCs are intact. Cardiovascular examination reveals a regular rate and rhythm. Lungs are clear to auscultation bilaterally. Abdomen is soft and nontender without guarding or rebound. Positive bowel sounds. Pelvis is stable. Diffuse tenderness to palpation right hip, no crepitance. Tenderness in the greater trochanteric area. Neuro vastly intact distally with palpable dorsalis pedis pulse. Initially hip held in flexion, with assistance was able to extend lower extremity. Const Vital Signs: 12/12/24 21:37 12/12/24 22:36 12/12/24 23:00 Temperature 99 F Temperature Source Oral Pulse Rate 77 69 68 Respiratory Rate 17 14 18 Blood Pressure 117/73 125/86 H 117/104 H Blood Pressure Mean 87 99 108 Pulse Ox 99 96 97 Oxygen Delivery Method Room Air Room Air 12/12/24 23:40 Temperature 98.2 F Temperature Source Pulse Rate 68 Respiratory Rate 14 Blood Pressure 121/64 H Blood Pressure Mean 83 Pulse Ox 100 Oxygen Delivery Method MDM MDM MDM Narrative Medical decision making narrative: Differential diagnosis includes but not limited to hip contusion versus hip fracture versus dislocation. Clinically, I do not feel she has a dislocation. She states that she is on a blood thinner, but is not Xarelto or Eliquis, she takes close. She will for coronary artery disease. She was administered fentanyl 50 mcg intravenously. My independent interpretation of the x-rays of the right hip, there is an intertrochanteric fracture. Upon repeat examination, she does have pain with logrolling of the right femur. At this point in time, I will obtain chest x-ray for preoperative clearance as well as EKG, CBC, and BMP as well as type and screen patient discussed with Dr. Najera who will review the films, and plan for surgery. I will discuss patient with the hospitalist, Dr. Emily Garza, for admission. EKG was obtained and interpreted by myself independently as normal sinus rhythm at 74 bpm without ectopy or acute ST changes. No STEMI. No significant change from previous. Other laboratories are currently pending. Her chest x-ray was ordered in 1 view for the hospitalist for preoperative clearance. It will be checked and reviewed by them. Disposition is admitted in stable condition. History & Record Review Discussion w/independent historian: Patient Radiography X-Ray: Right Hip, Read by ED Physician, Read by Radiologist and Fracture (Intertrochanteric, closed) Diagnostic Testing: Clinical Impression(s) from Imaging Studies Hip/Pelvis X-Ray 12/12/24 22:50 IMPRESSION: Acute right intertrochanteric femoral neck fracture. Reading Location: [place] [address] Discharge Plan Dx/Rx/DC Orders Clinical Impression: Closed intertrochanteric fracture of right hip, Fall, Smoker, History of CAD (coronary artery disease), Hypothyroidism Disposition Disposition: Acute Care Hospital [facility]
[2024-12-12] MEDS: fentaNYL 100 MCG/2 ML Ampul 50 MCG IV (22:12)
[2024-12-12 22:36] VITALS: BP 125/86; PULSE 69; RESP 14; O2SAT 96
--- OUTSIDE RECORDS SUMMARY | 2024-12-12 22:38 | XMS RPT_ITS | CCD ---
Author Organization [facility] Care Team Providers Care Ui Developer Designer Name Role Phone STANISLAW KONG (PA) Unavailable Unavail able Rohan Celeste Unavailable Unavailable Blanka RN, Penelope Patel Unavailable Jose Hyde MD Primary Care Provider Sergio White Unavailable Jose Hyde MD Primary Care Provider Sergio White Unavailable Sergio White Unavailable Jose Hyde MD Primary Care Provider Sergio White Unavailable Sergio White MD Unavailable Jose Hyde MD Primary Care Provider Pyle SYSTEMS PROGRAMMER ANALYST.WATCH ASSEMBLY INSPECTOR, Vlad Unavailable Jeremie SYSTEMS PROGRAMMER ANALYST.BARREL RIBS SOLDERER Romina Unavailable Jeremie SYSTEMS PROGRAMMER ANALYST.BARREL RIBS SOLDERER Romina Digna Unavailable Jeremie SYSTEMS PROGRAMMER ANALYST.BARREL RIBS SOLDERER, Romina Unavailable Jeremie SYSTEMS PROGRAMMER ANALYST.BARREL RIBS SOLDERER, Romina Unavailable Dr. Jose Hyde MD Primary Care Provider Randell GANDHI, Dr. Barton Attending Provider [phone] Mick Mejias MD Emergency Provider Provider, Ed Physician Emergency Provider Gay Samuels MD, Dr. Mcdaniel Emergency Provider Dr. Mango Cornejo DO Admit Provider Unavail able Cornejo DO, Dr. Cobian Referring Provider Unav ailable de Baljinder ARELLANO, Dr. Cobian Other Provider Unavail able Leonardo GANDHI, Dr. Marc Attending Provider Leonardo GANDHI, Dr. Marc Other Provider Elmo ARELLANO, Dr. Buck Attending Provider Mango Cornejo Referring Unavailable Talampas, Jose D Primary Care Unavailable Herberth Ramos Attending Unavailable Mango Cornejo Referring Unavailable Talampas, Jose D Primary Care Unavailable de Mango Gale Attending Unavailable Mango Cornejo Consulting Unavailable Mango Cornejo Admitting Unavailable Monico Patterson Attending Unavailable Monico Patterson Consulting Unavailable Heber Borrego Attending Unavailable Talampas, Jose D Primary Care Unavailable Provider, Ed Physician Attending Unavailab le Talampas, Jose D Primary Care Unavailable Mick Mejias Attending Unavailable Talampas, Jose D Primary Care Unavailable Markell Pino Attending Unavailable Mango Cornejo Referring Unavailable Talampas, Jose D Primary Care Unavailable de Mango Gale Consulting Unavailable Mango Cornejo Admitting Unavailable Monico Patterson Attending Unavailable Pyle SYSTEMS PROGRAMMER ANALYST.WATCH ASSEMBLY INSPECTOR, Vlad Unavailable Pyle SYSTEMS PROGRAMMER ANALYST.WATCH ASSEMBLY INSPECTOR, Vlad Unavailable TALAMPAS, JOSE D Primary Care Unavailable KEE TRIMBLE Attending Unavailable TALAMPAS, JOSE D Attending Unavailable TALAMPAS, JOSE D Primary Care Unavailable PYLE, VLAD Referring Unavailable TALAMPAS, JOSE D Primary Care Unavailable PYLE, VLAD Attending Unavailable TALAMPAS, JOSE D Primary Care Unavailable PYLE, VLAD Referring Unavailable TALAMPAS, JOSE D Primary Care Unavailable RODDYTA, MEHDI Attending Unavailable PYLE, VLAD Referring Unavailable TALAMPAS, JOSE D Primary Care Unavailable PYLE, VLAD Attending Unavailable TALAMPAS, JOSE D Primary Care Unavailable TALAMPAS, JOSE D Attending Unavailable PYLE, VLAD Referring Unavailable TALAMPAS, JOSE D Primary Care Unavailable TALAMPAS, JOSE D Primary Care Unavailable GANTA, MEHDI Referring Unavailable TALAMPAS, JOSE D Primary Care Unavailable PYLE, VLAD Attending Unavailable TALAMPAS, JOSE D Referring Unavailable TALAMPAS, JOSE D Primary Care Unavailable VLAD PYLE Referring Unavailable JOSE HYDE Primary Care Unavailable Allergies Allergy Classification Reported Allergen(s) Allergy Type Date of Onset Reaction(s) Facility (20 sources) codeine; Translations: [CODEINE] Drug Allergy 8 [facility] Repository Comment on above: TONGUE SWELLING (20 sources) morphine; Translations: [MORPHINE] Drug Allergy 8 Other: See Comments [facility] Repository (20 sources) Penicillins; Translations: [PENICILLINS] Propensity to adverse reactions to drug (disorder) 8 Anaphylaxis [facility] Repository (20 sources) propoxyphene; Translations: [PROPOXYPHENE HCL] Drug Allergy 8 [facility] Repository Comment on above: WELTS (20 sources) simvastatin; Translations: [SIMVASTATIN] Drug Allergy 2 Other: See Comments [facility] Repository (2 sources) Lisinopril Drug Allergy 3 cough [facility] Work Phone: [phone] (2 sources) Penicillin Drug Allergy 2 [facility] Work Phone: [phone] (2 sources) Propoxyphene Drug Allergy 2 [facility] Work Phone: [phone] Medications Current Medications Medication Drug Class(es) Dates Sig (Normalized) Sig (Original) Acetaminophen (3 sources) acetaminophen (TYLENOL EXTRA STRENGTH ORAL) Indications: Generalized pain Take by mouth. Active amLODIPine 10 mg oral tablet (20 sources) Dihydropyridine Calcium Channel Nurys Start: 11-25-2024 take 1 tablet by mouth once daily amLODIPine (NORVASC) 10 mg tablet Take 1 tablet by mouth once daily. 90 tablet 3 11/25/2024 Active Start: 08-09-2021 End: 11-05-2024 take 1 tablet by mouth once daily Amlodipine 10 mg tablet Active 10 mg PO DAILY October 21, 2024 12:00am Start: 08-30-2012 End: 10-21-2024 take 1 tablet by mouth once daily Amlodipine 5 MG tablet Discontinued 5 mg PO DAILY June 04, 2013 1:00am October 21, 2024 2:05pm Comment on above: Take 1 tablet by kenneth th once daily. atorvastatin 80 mg oral tablet (20 sources) HMG-CoA Reductase Inhibitor Start: take 1 tablet by mouth once daily at bedtime for hyperlipidemia atorvastatin (LIPITOR) 80 mg tablet Indications: Mixed hyperlipidemia Take 1 tablet by mouth daily at bedtime. For cholesterol. 30 tablet 11/25/2024 Active Start: 12-16-2019 End: 05-13-2024 take 1 tablet by mouth once daily at bedtime for hyperlipidemia atorvastatin (LIPITOR) 80 mg tablet Indications: Mixed hyperlipidemia Take 1 tablet by mouth daily at bedtime. For cholesterol. 30 tablet 05/13/2024 Active Start: 05-24-2018 End: 12-16-2019 take 1 tablet by mouth once daily Atorvastatin 40 mg t ablet Discontinued 40 mg PO DAILY June 28, 2018 2:15pm December 16, 2019 1:50pm Start: 05-24-2018 End: 06-28-2018 Atorvastatin 40 mg tablet Discontinued PO May 24, 2018 1:00am June 28, 2018 2:15pm Start: 08-08-2013 End: 05-24-2018 take 1 tablet by mouth at bedtime Atorvastatin 20 MG t ablet Discontinued 20 mg PO AT BEDTIME August 08, 2013 1:00am May 24, 2018 3:03pm Start: 04-11-2012 End: 04-12-2012 take 1 tablet by mouth at bedtime ATORVASTATIN CALCIUM 20 MG TABS One tablet by mouth at bedtime. ATORVASTATIN CALCIUM [id number] Sergio White MD Comment on above: Take 1 tablet by kenneth th daily at bedtime. For cholesterol. cetirizine hydrochloride 10 mg chewable tablet (2 sources) Histamine-1 Receptor Antagonist Start: End: take 1 tablet by mouth once daily as needed cetirizine HCl (ZYRTEC) 10 mg chewable tablet Indications: Rash and nonspecific skin eruption Take 1 tablet by mouth once daily. as needed for itchy skin lesions 30 tablet 08/15/2024 09/14/2024 Active cholecalciferol 0.125 mg oral tablet (20 sources) Vitamin D Start: take 1 tablet by mouth once daily cholecalciferol (VITAMIN D-3) 5,000 unit tab Take 1 tablet by mouth once daily. 90 tablet 3 11/25/2024 Active Start: 05-24-2018 End: 12-11-2018 take 1 capsule by mouth once daily Cholecalciferol (Vitamin D3) 5,000 unit capsule Discontinued 5000 U PO DAILY May 24, 2018 1:00am December 11, 2018 1:29pm End: 11-05-2024 take 1 capsule by mouth once cholecalciferol, vitamin D3, 100 mcg (4,000 unit) cap Indications: Vitamin D deficiency Take by mouth. 11/05/2024 Discontinued cholecalciferol, vitamin D3, 100 mcg (4,000 unit) cap Indications: Vitamin D deficiency Take by mouth. 0 Active cholecalciferol, vitamin D3, (VITAMIN D3) 4,000 unit cap Indications: Vitamin D deficiency Take by mouth. 0 Active Comment on above: Take by mouth. clonazePAM 0.5 mg oral tablet (10 sources) Benzodiazepine Start: 11-05-2024 take 1 tablet by mouth every twelve hours as needed for anxiety and anxiety clonazePAM (KLONOPIN) 0.5 mg tablet Indications: Anxiety Take 1 tablet by mouth two times a day as needed for up to 7 days. 14 tablet 11/25/2024 Active Start: 04-11-2012 End: 06-28-2018 take 1 tablet by mouth once daily Clonazepam 0.5 MG tablet Discontinued 0.5 mg PO DAILY June 04, 2013 1:00am June 28, 2018 2:15pm Comment on above: Take 1 tablet by kenneth once daily as needed for up to 60 days. dicyclomine hydrochloride 10 mg oral capsule (20 sources) Anticholinergic Start: 12-04-19 take 1 capsule by mouth four times daily as needed dicyclomine (BENTYL) 10 mg capsule Indications: Chronic diarrhea Take 1 capsule by mouth four times a day as needed. 120 capsule 2 12/03/2024 Active Start: 06-29-2022 End: 03-28-2023 take 1 capsule by mouth twice daily dicyclomine (BENTYL) 10 mg capsule Indications: Diarrhea , Irritable bowel syndrome Take 1 capsule by mouth twice daily. as directed- 60 capsule 3 07/26/2022 03/28/2023 Discontinued Start: 01-19-2016 End: 05-24-2018 take 1 capsule by mouth twice daily Dicyclomine 10 MG capsule Discontinued 10 mg PO TWICE A DAY January 19, 2016 12:00am May 24, 2018 3:05pm Start: 04-11-2012 take 1 tablet by kenneth th four times daily DICYCLOMINE HCL 10 MG CAPS One tablet by mouth four times daily DICYCLOMINE HCL [id number] Sergio White MD Start: 04-11-2012 End: 04-12-2012 take 1 tablet by mouth twice daily DICYCLOMINE HCL 10 MG CAPS One tablet by mouth twice daily DICYCLOMINE HCL [id number] Sergio White MD Comment on above: Take 1 capsule by mo [facility] [place] twice daily. as directed- ferrous sulfate 325 mg oral tablet (20 sources) Start: 11-09-2022 End: 04-29-2024 take 1 tablet by mouth every other day ferrous sulfate 325 mg (65 mg iron) tablet Take 1 tablet by mouth every other day. 45 tablet 3 11/09/2022 04/29/2024 Discontinued Start: 12-06-2021 take 1 tablet by kenneth th every other day ferrous sulfate 325 mg (65 mg iron) tablet Take 1 tablet by mouth every other day. 45 tablet 3 12/06/2021 Active Start: 07-26-2021 take 1 tablet by kenneth every other day ferrous sulfate 325 mg (65 mg iron) tablet Take 1 tablet by mouth every other day. 45 tablet 1 07/26/2021 Active Start: 07-12-2012 End: 01-01-2014 take 1 tablet by mouth twice daily FERROUS SULFATE 325 (65 Fe) MG TABS One tablet by mouth twice daily FERROUS SULFATE [id number] Sergio White MD Comment on above: Take 1 tablet by kenneth th every other day. loperamide hydrochloride 2 mg oral capsule (20 sources) Opioid Agonist Start: 06-26-2023 End: 07-18-2024 loperamide (IMODIUM) 2 mg cap(s) Indications: Loose stools Take 2 at onset of loose stools, then 1 after each loose stool as needed up to 6 pills per day 100 capsule 2 07/19/2024 Active Start: 03-23-2023 loperamide (IM ODIUM) 2 [...] sublingual tablet (20 sources) Nitrate Vasodilator Start: 06-04-2013 End: 06-29-2022 nitroglycerin sublingual (NITROQUICK) 0.4 mg SL tablet Indications: 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 Dissolve 1 tablet under the tongue as needed. DISSOLVE ON TONGUE FOR CHEST PAIN. IF NO PAIN RELIEF, CALL 911 25 tablet 3 06/29/2022 Active Start: 06-04-2013 Nitroglycerin Active 0.4 MG SL Q5M June 04, 2013 1:00am Start: 04-11-2012 End: 03-29-2013 NITROSTAT 0.4 MG SUBL 1 tabl et under tongue every 5 min up to 3 X NITROGLYCERIN [id number] Sergio White MD Comment on above: Dissolve 1 tablet un ajay the tongue as needed. DISSOLVE ON TONGUE FOR CHEST PAIN. IF NO PAIN RELIEF, CALL 911 pantoprazole 40 mg delayed release oral tablet (20 sources) Proton Pump Inhibitor Start: 10-24-2024 Pantoprazole 40 MG tablet Active 20 mg PO DAILY 0 30 October 24, 2024 2:04pm Start: 07-26-2022 End: 01-25-2023 take 1 tablet by mouth once daily pantoprazole DR (PROTONIX) 40 mg tablet Take 1 tablet by mouth once daily. 30 tablet 5 01/25/2023 Active Start: 02-09-2021 End: 07-26-2022 take 1 tablet by mouth twice daily pantoprazole DR (PROTONIX) 20 mg tablet Take 1 tablet by mouth twice daily. 180 tablet 3 06/29/2022 07/26/2022 Discontinued Start: 06-04-2013 End: 10-24-2024 Pantoprazole 40 MG tablet Discontinued 20 mg PO TWICE A DAY June 04, 2013 1:00am October 24, 2024 2:04pm Start: 06-04-2013 take 20 mg by mouth twice dayne y Pantoprazole Active 20 MG PO TWICE A DAY June 04, 2013 1:00am Start: 04-11-2012 take 1 tablet by kenneth th once daily PROTONIX 40 MG SOLR One tablet by mouth daily PANTOPRAZOLE SODIUM [id number] Bridgett Graham RN Start: 04-11-2012 take 1 tablet by kenneth th twice daily PROTONIX 40 MG SOLR One half tablet by mouth twice daily PANTOPRAZOLE SODIUM [id number] Sergio White MD Start: 04-11-2012 take 2 tablets by mo [facility] [place] once daily PROTONIX 20 MG TBEC Two tablets by mouth daily. PANTOPRAZOLE SODIUM [id number] John Santiago NP Comment on above: Take 1 tablet by kenneth th twice daily. Take 1 tablet by kenneth th once daily. perflutren lipid microspheres 1.3 mL in NaCl (PF) 0.9% 10 mL injection (DEFINITY) (20 sources) Start: 08-09-19 End: 11-09-19 perflutren lipid microspheres 1.3 mL in NaCl (PF) 0.9% 10 mL injection (DEFINITY) Potassium, Sodium Phosphates 280-160-250 mg Powder In Packet (1 source) Start: 10-25-19 Potassium, Sodium Phosphates 280-160-250 mg Powder In Packet Active 1 NMA PO THREE TIMES A DAY 15 October 24, 2024 12:00am QUEtiapine 25 mg oral tablet (20 sources) Atypical Antipsychotic Start: 11-06-19 take 1 tablet by mouth once daily at bedtime QUEtiapine (SEROQUEL) 25 mg tablet Indications: Persistent depressive disorder , History of bipolar disorder Take 1 tablet by mouth daily at bedtime. 30 tablet 5 11/05/2024 Active Start: 06-26-2023 End: 11-05-2024 take 1 tablet by mouth at bedtime Quetiapine 100 mg tablet Active 100 mg PO AT BEDTIME October 21, 2024 12:00am Start: 05-01-2023 take 1 tablet by kenneth th once daily at bedtime QUEtiapine (SEROQUEL) 50 mg tablet Indications: Weight loss , Anxiety Take 1 tablet by mouth daily at bedtime. 30 tablet 2 05/01/2023 Active Comment on above: Take 1 tablet by kenneth th daily at bedtime. Saliva Substitute Combo No.9 (Biotene Dry Mouth Oral Rinse) Mouthwash (1 source) Start: 10-24-2024 take 1 mL by mouth four times daily at mealtime Saliva Substitute Combo No.9 (Biotene Dry Mouth Oral Rinse) Mouthwash Active 15 mL MUCOUS MEM 4 TIMES DAILY WITH MEALS 999October 24, 2024 12:00am sertraline 50 mg oral tablet (20 sources) Serotonin Reuptake Inhibitor Start: 04-29-2024 End: 11-05-2024 take 1 tablet by mouth once daily sertraline (ZOLOFT) 50 mg tablet Indications: Persistent depressive disorder , History of bipolar disorder Take 1 tablet by mouth once daily. Take this in addition to 100 mg tablet for a total of 150 mg daily 90 tablet 3 11/05/2024 Active Start: 06-28-2018 End: 11-05-2024 take 1 tablet by mouth once daily sertraline (ZOLOFT) 100 mg tablet Take 1 tablet by mouth once daily. 30 tablet 11 05/13/2024 11/05/2024 Discontinued Start: 04-12-2012 End: 06-28-2018 take 1 tablet by mouth twice daily Sertraline 100 MG tablet Discontinued 100 mg PO TWICE A DAY June 04, 2013 1:00am June 28, 2018 2:16pm Start: 04-11-2012 take 1 tablet by kenneth th once daily ZOLOFT 100 MG TABS One tablet by mouth daily SERTRALINE HCL [id number] Sergio White MD Comment on above: Take 1 tablet by kenneth th once daily. 125 ml sodium chloride 9 mg/ml prefilled syringe (20 sources) Start: 08-09-19 End: 05-23-20 23 sodium chloride 0.9 % (flush) 10 mL (BD POSIFLUSH) triamcinolone acetonide 1 mg/ml topical cream (2 sources) Corticosteroid Start: 08-15-19 End: 08-30-19 triamcinolone acetonide (KENALOG) 0.1 % cream Indications: Rash and nonspecific skin eruption Apply 1 application to affected area three times a day for 14 days. Apply to affected area. Itchy skin lesions 28.4 g 1 08/15/2024 08/29/2024 Active valACYclovir 500 mg oral tablet (20 sources) Herpesvirus Nucleoside Analog DNA Polymerase Inhibitor, Herpes Simplex Virus Nucleoside Analog DNA Polymerase Inhibitor, Herpes Zoster Virus Nucleoside Analog DNA Polymerase Inhibitor Start: 11-26-19 take 1 tablet by mouth once daily valACYclovir (VALTREX) 500 mg tablet Indications: Recurrent cold sores Take 1 tablet by mouth once daily. 90 tablet 3 11/25/2024 Active Start: 07-25-2023 End: 08-15-2024 take 1 tablet by mouth once daily Valacyclovir 500 mg tablet Active 500 mg PO DAILY October 21, 2024 12:00am Start: 12-06-2021 End: 06-29-2022 take 1 tablet [...] / HYDROcodone bitartrate 5 mg oral tablet (6 sources) Opioid Agonist Start: 10-06-2015 End: 05-24-2018 Hydrocodone-Acetami nophen 1 TABLET tablet Discontinued 1 {tbl} PO EVERY 4 HOURS NEEDED as needed for Pain February 01, 2016 6:49am May 24, 2018 3:04pm Start: 10-06-2015 End: 05-24-2018 take 1 tablet by mouth every four hours as needed Hydrocodone-Acetaminophen Discontinued 1 TABLET PO EVERY 4 HOURS NEEDED February 01, 2016 6:49am May 24, 2018 3:04pm Start: 08-11-2015 HYDROCODONE-AC ETAMINOPHEN 5-325 MG TABS as directed HYDROCODONE-ACETAMINOPHEN [id number] Penelope Koenig PADandyC aspirin 81 mg chewable tablet (20 sources) Platelet Aggregation Inhibitor, Nonsteroidal Anti-inflammatory Drug Start: 06-04-2013 End: 04-08-2024 take 1 tablet by mouth once daily Aspirin 81 MG tablet,chewable Discontinued 81 mg PO DAILY@0800 June 04, 2013 1:00am April 08, 2024 12:29am Start: 11-25-2010 take 1 tablet by kenneth th once daily aspirin, enteric coated (ASPIRIN, ENTERIC [...] daily 90 tablet 1 03/17/2023 Active Start: 04-11-2012 End: 08-25-2022 take 1 tablet by mouth once daily atenolol (TENORMIN) 25 mg tablet Take 1 tablet by mouth once daily. 90 tablet 1 08/26/2022 Active Comment on above: Take 1 tablet by kenneth th once daily. take 1 tablet by kenneth th daily benzonatate 100 mg oral capsule (9 sources) Non-narcotic Antitussive Start: 05-22-20 End: 12-04-19 take 1 capsule by mouth every eight hours as needed benzonatate (TESSALON PERLE) 100 mg capsule Take 1 capsule by mouth three times a day as needed for cough. 30 capsule 05/22/2024 12/03/2024 Discontinued Biotin (2 sources) Start: 03-20-20 BIOTIN CAPS via [facility] BIOTIN CAPS [id number] Tony Jackson MD bisacodyl 5 mg delayed release oral tablet (6 sources) Stimulant Laxative Start: 03-11-20 Bisacodyl (DULCOLAX) 5 mg tab Indications: Altered bowel habits Use as directed for Miralax / Gatorade Bowel Prep Kit 4 tablet 0 03/11/2020 Active Comment on above: Use as directed for Miralax / Gatorade Bowel Prep Kit 12 hr buPROPion hydrochloride 200 mg extended release oral tablet (20 sources) Aminoketone Start: 03-28-20 End: 05-01-20 take 1 tablet by mouth once daily buPROPion SR (WELLBUTRIN SR) 200 mg 12 hr tablet Take 1 tablet by mouth once daily. 90 tablet 3 03/28/2023 05/01/2023 Discontinued Start: 02-09-2021 End: 03-28-2023 take 1 tablet by mouth once daily buPROPion (WELLBUTRIN) 100 mg tablet Take 1 tablet by mouth once daily. 90 tablet 3 06/29/2022 03/28/2023 Discontinued Start: 06-28-2018 take 1 tablet by kenneth th once daily Bupropion Hcl (Wellbutrin Sr) 100 mg tablet sustained-release 12 hr Active 100 mg PO DAILY June 28, 2018 1:00am Start: 04-12-2012 End: 05-24-2018 take 1 tablet by mouth twice daily Bupropion Hcl 100 MG tablet Discontinued 100 mg PO TWICE A DAY June 04, 2013 1:00am May 24, 2018 3:05pm Start: 04-11-2012 take 1 tablet by kenneth th once daily WELLBUTRIN 100 MG TABS One tablet by mouth daily BUPROPION HCL [id number] Sergio White MD Comment on above: Take 1 tablet by kenneth th once daily. cloNIDine hydrochloride 0.1 mg oral tablet (16 sources) Central alpha-2 Adrenergic Agonist Start: 4 End: 4 take 1 tablet by mouth once daily CLONIDINE HCL 0.1 MG TABS One tablet by mouth daily CLONIDINE HCL [id number] Bridgett Graham RN Start: 12-17-2012 End: 03-29-2013 take 1 tablet by mouth once daily CLONIDINE HCL 0.1 MG TABS One tablet by mouth daily CLONIDINE HCL [id number] Penelope Koenig PA-C Start: 04-12-2012 End: 10-19-2012 take 0.5 tablet by mouth twice daily CLONIDINE HCL 0.1 MG TABS 1/2 tablet by mouth twice daily CLONIDINE HCL [id number] Penelope Koenig PA-C Start: 04-11-2012 take 1 tablet by kenneth th twice daily CLONIDINE HCL 0.1 MG TABS One tablet by mouth twice daily CLONIDINE HCL [id number] Bridgett Graham RN clopidogrel 75 mg oral tablet (20 sources) [id number] Platelet Inhibitor Start: 06-26-2023 End: 11-05-2024 take 1 tablet by mouth once daily clopidogrel (PLAVIX) 75 mg tablet Indications: 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 Take 1 tablet by mouth once daily. 30 tablet 11 05/13/2024 11/05/2024 Discontinued Start: 04-11-2012 End: 06-29-2022 take 1 tablet by mouth once daily clopidogrel (PLAVIX) 75 mg tablet Indications: 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 Take 1 tablet by mouth once daily. 90 tablet 3 06/29/2022 Active Comment on above: Take 1 tablet by kenneth th once daily. ergocalciferol 1.25 mg oral capsule (10 sources) Provitamin D2 Compound Start: 08-08-2013 End: 05-24-2018 Ergocalciferol (Vitamin D2) 50,000 UNIT capsule Discontinued 22913 U PO MO August 08, 2013 1:00am May 24, 2018 3:04pm Start: 04-12-2012 take 1 tablet by kenneth th every month VITAMIN D (ERGOCALCIFEROL) 23588 UNIT CAPS One tablet by mouth month ERGOCALCIFEROL [id number] Penelope Koenig PA-C Start: 04-11-2012 End: 04-12-2012 take 1 tablet by mouth every week VITAMIN D (ERGOCALCIFEROL) 88451 UNIT CAPS One tablet by mouth weekly ERGOCALCIFEROL [id number] Sergio White MD gabapentin 300 mg oral capsule (11 sources) Anti-epileptic Agent Start: 02-20-2020 take 2 capsules by mouth once daily at bedtime gabapentin (NEURONTIN) 300 mg capsule Indications: 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 As directed 0 02/20/2020 Active Start: 12-04-2019 End: 04-08-2024 take 1 capsule by mouth three times daily as needed Gabapentin 300 mg capsule Discontinued 300 mg PO THREE TIMES A DAY as needed December 04, 2019 12:00am April 08, 2024 12:29am Start: 08-11-2015 End: 05-24-2018 take 1 capsule by mouth three times daily at mealtime Gabapentin 300 MG capsule Discontinued 300 mg PO 3 TIMES DAILY WITH MEALS October 06, 2015 12:00am May 24, 2018 3:04pm Comment on above: Take 2 capsules by [...] One half tablet by mouth daily HYDROCHLOROTHIAZIDE [id number] Penelope Koenig PA-C hydrocortisone 25 mg/ml topical lotion (4 sources) Corticosteroid Start : 04-11 End: 06-30 HYDROCORTISONE 2.5 % LOTN Apply as directed HYDROCORTISONE [id number] Bridgett Graham RN hydrOXYzine hydrochloride 25 mg oral tablet (4 sources) Antihistamine Start : 04-11 End: 05-24 take 1 tablet by mouth twice daily as needed for anxiety Hydroxyzine Hcl 25 MG tablet Discontinued 25 mg PO TWICE DAILY NEEDED as needed for Anxiety January 19, 2016 12:00am May 24, 2018 3:04pm ibuprofen 800 mg oral tablet (4 sources) Nonsteroidal Anti-inflammatory Drug Start : 04-12 End: 08-30 IBUPROFEN 800 MG TABS as needed IBUPROFEN [id number] Sergio White MD L.acid/L.casei/B.bif/B.l on/FOS (PROBIOTIC BLEND ORAL) (5 sources) take 1 capsule by mouth once daily L.acid/L.casei/B.bif/B. skye/FOS (PROBIOTIC BLEND ORAL) Take 1 capsule by mouth once daily. 0 Active Comment on above: Take 1 capsule by mo uth once daily. levothyroxine sodium 0.025 mg oral tablet (20 sources) l-Thyroxine Start : 06-26 End: 11-05 take 1 tablet by mouth once daily before breakfast levothyroxine (SYNTHROID) 25 mcg tablet Indications: Acquired hypothyroidism Take 1 tablet by mouth daily before breakfast. 90 tablet 1 03/20/2024 11/05/2024 Discontinued Start: 03-23-2023 take 1 tablet by kenneth [...] breakfast. 90 tablet 3 02/15/2022 Active Start: 06-10-2019 take 1 tablet by kenneth th once daily Levothyroxine 50 mcg tablet Active 50 ug PO DAILY June 10, 2019 2:33pm Start: 06-28-2018 End: 06-10-2019 Levothyroxine 50 mcg tablet Discontinued 25 ug PO DAILY June 28, 2018 2:14pm June 10, 2019 2:33pm Start: 06-28-2018 End: 06-10-2019 take 25 ug by mouth once daily Levothyroxine Discontin ued 25 MCG PO DAILY June 28, 2018 2:14pm June 10, 2019 2:33pm Start: 04-11-2012 End: 06-28-2018 take 1 tablet by mouth once daily Levothyroxine 50 MCG tablet Discontinued 50 ug PO DAILY June 04, 2013 1:00am June 28, 2018 2:16pm Comment on above: Take 1 tablet by kenneth th daily before breakfast.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 SPECIMENOrdering Facility: [facility] Address: [address] [place] [address] Result Comment: <200 mg/dL, Desirable 200-239 mg/dL, Borderline high >239 mg/dL, High Performed By: #### L IPNF ####[facility] LABIA [id number] [place] [address] [place] HDL CHOLESTEROL, NF 76 mg/dL Normal >39 [facility] Comment on above: Order Comment: Speci men Type: BLOOD SPECIMENOrdering Facility: [facility] Address: [address] [place] [address] Result Comment: 40-5 9 mg/dL, Acceptable >59 mg/dL, High: Negative risk factor for coronary heart disease <40 mg/dL, Low: Positive risk factor for coronary heart disease Performed By: #### L IPNF ####[facility] LABIA [id number] [place] [id number] [place] LDL CHOLESTEROL CALCULATED, NF 112 mg/dL High <100 [facility] Comment on above: Order Comment: Speci men Type: BLOOD SPECIMENOrdering Facility: [facility] Address: [address] [place] [address] Result Comment: <100 mg/dL, Optimal 100-129 mg/dL, Near optimal/above optimal 130-159 mg/dL, Borderline high 160-189 mg/dL, High >189 mg/dL, Very high Secondary prevention optimal LDL Cholesterol levels are recommended to be <70 mg/dL LDL cholesterol is calculated using the [place]-NIH equation. Performed By: #### L IPNF ####[facility] LABCLIA [id number] [address] LDL/HDL RATIO, NF 1.47 mg/dL Normal <2.54 [facility] Comment on above: Order Comment: Speci men Type: BLOOD SPECIMENOrdering Facility: [facility] Address: [address] [place] [address] Result Comment: Refe magoce: 1. National Cholesterol Education Program ATP III Guideline At-A-Glance Quick Desk Reference: National Heart, Lung, and Blood [place]. National Institutes of Health. 2001: NIH Publication No. 01-3305. 2. An International Atherosclerosis Society position paper: global recommendations for the management of dyslipidemia: executive summary, Atherosclerosis. 2014: 232(2):410-413. Performed By: #### L IPNF ####[facility] LABIA [id number] [address] NON HDL CHOL, NF 126 mg/dL Normal <130 [facility] Comment on above: Order Comment: [facility] Type: BLOOD SPECIMENOrdering Facility: [facility] Address: [address] [place] [address] Result Comment: <130 mg/dL, Optimal 130-159 mg/dL, Near optimal/above optimal 160-189 mg/dL, Borderline high 190-219 mg/dL, High >219 mg/dL, Very high Secondary prevention optimal non HDL Cholesterol levels are recommended to be <100 mg/dL Performed By: #### L IPNF ####[facility] LABIA [id number] [place] [id number] [facility] T CHOL/HDL RATIO NF 2.66 mg/dL Normal <5.10 [facility] Comment on above: Order Comment: Speci men Type: BLOOD SPECIMENOrdering Facility: [facility] Address: [address] [place] [address] Performed By: #### L IPNF ####[facility] LABIA [id number] [place] [address] [place] TRIGLYCERIDES, NF 79 mg/dL Normal <150 [facility] Comment on above: Order Comment: Speci men Type: BLOOD SPECIMENOrdering Facility: [facility] Address: [address] [place] [address] Result Comment: <150 mg/dL, Normal 150-199 mg/dL, Borderline high 200-499 mg/dL, High >499 mg/dL, Very high Performed By: #### L IPNF ####[facility] LABIA [id number] [place] [address] [place] VLDL CHOLESTEROL, NF 13 mg/dL Normal <30 [facility] Comment on above: Order Comment: Speci men Type: BLOOD SPECIMENOrdering Facility: [facility] Address: [address] [place] [address] Performed By: #### L IPNF ####[facility] LABIA [id number] [address] [place] CNOVon 11-05-2024 CNOV Office Visit (INTMWS ) -- ROBI OLIVARES ([id number]) 1950 F Date Time Provider Department 11/05/24 5:00 PM JOSE HYDE INTMWS During your visit today, we recorded the following information about you: Pulse Respiration Blood pressure Weight 80/minute 18/minute 134/74 42.5 kg Jose Hyde MD 11/25/2024 12:35 AM Signed This note was created using [employer]. Subjective Robi Olivares is a 73 year old female. Patient presents with: Hospital F/U Kaylie is a 73-year-old female with a history of anxiety, depression, HTN, and CAD with a stent placement, presenting for follow-up after a recent hospitalization for abdominal pain, emesis, and diarrhea. She is accompanied by her , who is providing additional history. Kaylie was recently discharged from the hospital on 10/24 after being admitted for abdominal pain, emesis, and diarrhea. Since discharge, she reports ongoing abdominal discomfort described as chaos and continues to experience watery diarrhea and melena. She has not had emesis in the past few days but notes significant weight loss, approximately 20 lbs, prior to her hospital admission. She is currently consuming nutritional drinks similar to Ensure but finds them thick and difficult to ingest. She denies current heartburn or reflux issues and is not taking pantoprazole, which was administered intravenously during her hospital stay. During her hospitalization, she was found to have hypokalemia and hypercalcemia, attributed to dehydration and inability to retain oral intake. A CT scan revealed a mildly dilated common bile duct without evidence of colitis, C. diff, or obstructive pathology. An MRCP showed a common bile duct measuring 10 mm without stones. Due to concerns about bleeding, her clopidogrel was discontinued. She is not currently taking her antihypertensive medication, amlodipine, and her blood pressure today is 134/70 mmHg. She also has not taken her Synthroid, prescribed at 25 mcg, since last year, with her most recent TSH level at 2.67. Kaylie reports significant anxiety and stress related to her 's stage 4 sarcoma, which has metastasized to his neck, causing dysphagia and pain. He is undergoing daily radiation and chemotherapy, with 13 sessions remaining. She describes her as pissed off at the world and notes verbal outbursts but denies any physical aggression. She has a supportive sister but is not currently active in her buddhism. She has a history of anxiety and depression, previously managed with Seroquel and Zoloft, but has not taken these medications recently due to cost. She requests medication to help manage her anxiety and improve her sleep. PAST MEDICAL HISTORY Diagnosis Date Acute gastritis without mention of hemorrhage Acute myocardial infarction of other specified sites, episode of care unspecified Myocardial Infarction--DR WHITE Adenomatous colon polyp TA on Jun 2015 colonoscopy (Dr. 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 Davison Severe vulvar dysplasia Vitamin D Deficiency 08/20/2009 Current Outpatient Medications Medication Sig acetaminophen (TYLENOL EXTRA STRENGTH ORAL) Take by mouth. loperamide (IMODIUM) 2 mg cap(s) Take 2 at onset of loose stools, then 1 after each loose stool as needed up to 6 pills per day nitroglycerin sublingual (NITROQUICK) 0.4 mg SL tablet Dissolve 1 tablet under the tongue as needed. DISSOLVE ON TONGUE FOR CHEST PAIN. IF NO PAIN RELIEF, CALL 911 QUEtiapine (SEROQUEL) 25 mg tablet Take 1 tablet by mouth daily at bedtime. sertraline (ZOLOFT) 50 mg tablet Take 1 tablet by mouth once daily. Take this in addition to 100 mg tablet for a total of 150 mg daily clonazePAM (KLONOPIN) 0.5 mg tablet Take 1 tablet by mouth two times a day as needed for up to 7 days. valACYclovir (VALTREX) 500 mg tablet Take 1 tablet by mouth once daily. (Patient not taking: Reported on 11/05/2024) benzonatate (TESSALON PERLE) 100 mg capsule Take 1 capsule by mouth three times a day as needed for cough. (Patient not taking: Reported on 08/15/2024) atorvastatin (LIPITOR) 80 mg tablet Take 1 tablet by mouth daily at bedtime. For cholesterol. (Patient not taking: Reported on 11/05/2024) No current facility-administered medications for this visit. Review of Systems Objective BP 134/74 Pulse 80 Resp 18 Wt 4 (more content not included)... Normal [facility] ROBI [facility]AR[facility] ([id number]) 1950 F Date Time Provider Department 11/04/24 JOSE HYDE INTAntwonWS During your visit today, we recorded the following information about you: Analy Colunga 11/04/2024 2:37 PM Signed Spoke with patient to reschedule missed Hospital Follow up. Patient started crying and stated she is losing her mind. Patient stated has Stage IV cancer (being treated at [facility]) and he is being mean. Patient was unaware of any support services through [facility] Cancer [facility] and did not want knowing she was needing help. Did transfer patient to a nurse and did reach out to the social human services assistants for recommendations. Additionally, in the process of the call, patient stated she does not want to see Dr. Rick again. Elena Piña LPN 11/04/2024 2:53 PM Signed Spoke to pt who reports she is very stressed from who has stage 4 cancer. Pt reports she tries to help him but all he does is yell at her. Pt reports she feels like she is losing her mind. Pt reports she feels better having an appt with pcp tomorrow. Pt reports she is okay for now. Advised pt to call back to office if anything is needed today. Advised triage nurse is available at [facility] until 8 pm. SANTA Arreaga Rosa, APRN.[employer] 11/06/2024 8:08 AM Signed Seen yesterday with Jose Hyde MD Allergies As of Date: 11/04/2024 Noted Allergy Reaction CODEINE 10/11/2007 4 - Hives DARVON (PROPOXYPHENE HCL) 10/11/2007 4 - Hives MORPHINE 09/14/2017 14 - Other: See Comments Comments: Made tongue swell PENICILLINS 10/11/2007 10 - Anaphylaxis SIMVASTATIN 04/17/2012 14 - Other: See Comments Comments: elevated LFTS; had tolerated Lipitor for years without problem Date Reviewed: 10/15/2024 Reviewed by: Kee Trimble APRN.[employer]ER - Fully Assessed Reason for Visit: Patient Update [1234] Prescriptions as of 11/06/2024 - acetaminophen (TYLENOL EXTRA STRENGTH ORAL) Take by mouth. - QUEtiapine (SEROQUEL) 25 mg tablet Take 1 tablet by mouth daily at bedtime. - sertraline (ZOLOFT) 50 mg tablet Take 1 tablet by mouth once daily. Take this in addition to 100 mg tablet for a total of 150 mg daily - clonazePAM (KLONOPIN) 0.5 mg tablet Take 1 tablet by mouth two times a day as needed for up to 7 days. - valACYclovir (VALTREX) 500 mg tablet Take 1 tablet by mouth once daily. - loperamide (IMODIUM) 2 mg cap(s) Take 2 at onset of loose stools, then 1 after each loose stool as needed up to 6 pills per day - benzonatate (TESSALON PERLE) 100 mg capsule Take 1 capsule by mouth three times a day as needed for cough. - atorvastatin (LIPITOR) 80 mg tablet Take 1 tablet by mouth daily at bedtime. For cholesterol. - nitroglycerin sublingual (NITROQUICK) 0.4 mg SL tablet Dissolve 1 tablet under the tongue as needed. DISSOLVE ON TONGUE FOR CHEST PAIN. IF NO PAIN RELIEF, CALL 911 Problem List As Of Date 11/04/2024 Noted Resolved Essential hypertension [I10] MIXED HYPERLIPIDEMIA [...] skin [L57.8] 05/05/2010 CAD (coronary artery disease), [place] coronary *10/14/2010 Coronary stent 10/14/2010 Carcinoma in [...] CHF (congestive heart failure*10/16/2023 Encounter Status:Closed by LAITH (more content not included)... Normal [facility] ANCAon 10-28-2024 Atypical pANCA <1:20 Normal Neg:<1:20 [facility] Comment on above: Order Comment: IN [place] CU OF 1699 Result Comment: The atypical pANCA pattern has been observed in a significant percentage of patients with ulcerative colitis, primary sclerosing cholangitis and autoimmune hepatitis. Performed By: #### L 501.5200, L509.1000 #### [facility] [address] [place], [address] Cytoplasmic Ab <1:20 Normal Neg:<1:20 [facility] Comment on above: Order Comment: IN PA CU OF 1699 Performed By: #### L 501.5200, L509.1000 #### [facility] [address] [place], [place], [address] Perinuclear Ab. <1:20 Normal Neg:<1:20 [facility] Comment on above: Order Comment: IN PA CU OF 1699 Result Comment: The presence of positive fluorescence exhibiting P-ANCA or C-ANCA patterns alone is not specific for the diagnosis of Tierra's Granulomatosis (WG) or microscopic polyangiitis. Decisions about treatment should not be based solely on ANCA IFA results. The International ANCA Group Consensus recommends follow up testing of positive sera with both IN- 3 and MPO-ANCA enzyme immunoassays. As many as 5% serum samples are positive only by EIA. Ref. AM J Clin Pathol 1999;111:507-513. Performed By: #### L 501.5200, L509.1000 #### [facility] [address] [place], [place], [address] Angiotensin Convert Enzymeon 10-28-2024 ANGIOT-CONV.ENZ 55 U/L Normal 14-82 [facility] Comment on above: Order Comment: IN PA CU OF 1699 Result Comment: Perf ormed at: [facility] [id number] [employer]el Machine Operator: Orlin Wagner PhD, Phone: [phone] Performed at: [facility] [id number] [employer] Operator: Maru Sue MD, Phone: [phone] Performed By: #### L 501.5200, L509.1000 #### [facility] [address] [place], [place], [address] Carbohydrate AG 19-9on 10-28 CA 19-9 7 U/mL Normal 0-35 [facility] Comment on above: Order Comment: IN PA CU OF 1699 Result Comment: [facility] Electrochemiluminescence Immunoassay (ECLIA) Values obtained with different assay methods or kits cannot be used interchangeably. Results cannot be interpreted as absolute evidence of the presence or absence of malignant disease. Performed By: #### L 501.5200, L509.1000 #### [facility] [address] [place], [address] Carcinoembryonic Antigenon 0 10-28-2024 CEA 11.1 ng/mL High 0.0-4.7 [facility] Comment on above: Order Comment: IN PA CU OF 1700 Result Comment: Nons mokers <3.9 Smokers <5.6 [facility] Electrochemiluminescence Immunoassay (ECLIA) Values obtained with different assay methods or kits cannot be used interchangeably. Results cannot be interpreted as absolute evidence of the presence or absence of malignant disease. Performed By: #### L 501.5200, L509.1000 #### [facility] [address] [place], [address] Celiac AB,Comprehensiveon ANTIGLIADIN IGA 3 units Normal 0-19 [facility] Comment on above: Order Comment: IN PA CU OF 1700 Result Comment: Nega tive 0 - 19 Weak Positive 20 - 30 Moderate to Strong Positive >30 Performed By: #### L 501.5200, L509.1000 #### [facility] [address] [place], [address] ANTIGLIADIN IGG 2 units Normal 0-19 [facility] Comment on above: Order Comment: IN PA CU OF 1700 Result Comment: Nega tive 0 - 19 Weak Positive 20 - 30 Moderate to Strong Positive >30 Performed By: #### L 501.5200, L509.1000 #### [facility] [address] [place], [address] ENDOMYSIAL IGA Negative Normal Negative [facility] Comment on above: Order Comment: IN PA CU OF 1700 Performed By: #### L 501.5200, L509.1000 #### [facility] [address] [place], [address] tTG IGA <2 Normal 0-3 [facility] Comment on above: Order Comment: IN PA CU OF 1700 Result Comment: Nega tive 0 - 3 Weak Positive 4 - 10 Positive >10 Tissue Transglutaminase (tTG) has been identified as the endomysial antigen. Studies have demonstr- ated that endomysial IgA antibodies have over 99% specificity for gluten sensitive enteropathy. Performed By: #### L 501.5200, L509.1000 #### [facility] [address] [place], [address] tTG IGG <2 Normal 0-5 [facility] Comment on above: Order Comment: IN [place] CU OF 170 Result Comment: Nega tive 0 - 5 Weak Positive 6 - 9 Positive >9 Performed By: #### L 501.5200, L509.1000 #### [facility] [address] [place], [address] SUHAIL + Protein Elect, Serumon 10-28-2024 Albumin [Mass/Vol] 3.3 g/dL Normal 2.9-4.4 [facility] Comment on above: Order Comment: IN PA CU OF 1699 Performed By: #### L 501.5200, L509.1000 #### [facility] [address] [place], [address] Albumin/Globulin [Mass ratio] 1.4 {ratio} Normal 0.7-1.7 [facility] Comment on above: Order Comment: IN PA CU OF 1700 Performed By: #### L 501.5200, L509.1000 #### [facility] [address] [place], [address] QMIVQ-8-BYZX 0.2 g/dL Normal 0.0-0.4 [facility] Comment on above: Order Comment: IN [place] CU OF 1700 Performed By: #### L 501.5200, L509.1000 #### [facility] [address] [place], [address] SKSGI-3-LKGL 0.7 g/dL Normal 0.4-1.0 [facility] Comment on above: Order Comment: IN PA CU OF 1700 Performed By: #### L 501.5200, L509.1000 #### [facility] [address] [place], [address] BETA GLOBULIN 0.7 g/dL Normal 0.7-1.3 [facility] Comment on above: Order Comment: IN PA CU OF 1700 Performed By: #### L 501.5200, L509.1000 #### [facility] [address] [place], [address] GAMMA GLOBULIN 0.9 g/dL Normal 0.4-1.8 [facility] Comment on above: Order Comment: IN PA CU OF 1700 Performed By: #### L 501.5200, L509.1000 #### [facility] [address] [place], [address] Globulin (S) [Mass/Vol] 2.5 g/dL Normal 2.2-3.9 [facility] Comment on above: Order Comment: IN PA CU OF 1700 Performed By: #### L 501.5200, L509.1000 #### [facility] [address] [place], [address] SUHAIL RESULT,S Comment Abnormal . [facility] Comment on above: Order Comment: IN PA CU OF 1700 Result Comment: Immu nofixation shows IgG monoclonal protein with kappa light chain specificity. PLEASE NOTE: Samples from patients receiving DARZALEX(R) (daratumumab) or SARCLISA(R)(isatuximab-irfc) treatment can appear as an IgG kappa and mask a complete response (CR). If this patient is receiving these therapies, this SUHAIL assay interference can be removed by ordering test number [id number]-Ehpsyiclhscgpa, Daratumumab-Specific, Serum or [id number]-Zwtieyhmqlzghi, Isatuximab-Specific, Serum and submitting a new sample for testing or by calling the lab to add this test to the current sample. Performed By: #### L 501.5200, L509.1000 #### [facility] [address] [place], [address] IMMUNOGLOB A QN 135 mg/dL Normal 64-422 [facility] Comment on above: Order Comment: IN PA CU OF 1700 Performed By: #### L 501.5200, L509.1000 #### [facility] [address] [place], [address] IMMUNOGLOB M QN 161 mg/dL Normal 26-217 [facility] Comment on above: Order Comment: IN PA CU OF 1700 Performed By: #### L 501.5200, L509.1000 #### [facility] [address] [place], [address] M-Justice Comment: Normal Not Observed [facility] Comment on above: Order Comment: IN PA CU OF 1700 Result Comment: Due to the small quantity of monoclonal protein, unable to quantitate the M-spike. Performed By: #### L 501.5200, L509.1000 #### [facility] [address] [place], [address] NOTE: Comment Normal . [facility] Comment on above: Order Comment: IN PA CU OF 1700 Result Comment: Prot ein electrophoresis scan will follow via computer, mail, or lead architect delivery. Performed By: #### L 501.5200, L509.1000 #### [facility] [address] [place], [address] Protein [Mass/Vol] 5.8 g/dL Low 6.0-8.5 [facility] Comment on above: Order Comment: IN PA CU OF 1700 Performed By: #### L 501.5200, L509.1000 #### [facility] [address] [place], [address] IgG Subclasseson 10-28-2024 IgG, SUBCLASS 1 427 mg/dL Normal 248-810 [facility] Comment on above: Order Comment: IN PA CU OF 1700 Performed By: #### L 501.5200, L509.1000 #### [facility] [address] [place], [address] IgG, SUBCLASS 2 217 mg/dL Normal 130-555 [facility] Comment on above: Order Comment: IN PA CU OF 1700 Performed By: #### L 501.5200, L509.1000 #### [facility] [address] [place], [address] IgG, SUBCLASS 3 27 mg/dL Normal 15-102 [facility] Comment on above: Order Comment: IN PA CU OF 1700 Performed By: #### L 501.5200, L509.1000 #### [facility] [address] [place], [address] IgG, SUBCLASS 4 52 mg/dL Normal 2-96 [facility] Comment on above: Order Comment: IN PA CU OF 1700 Performed By: #### L 501.5200, L509.1000 #### [facility] [address] [place], [address] IGG,QUANT 955 mg/dL Normal 586-1602 [facility] Comment on above: Order Comment: IN PA CU OF 1700 Performed By: #### L 501.5200, L509.1000 #### [facility] [address] [place], [address] Immunoglobulins G/A/M/Joaquin IMMUNOGLOB E QN 333 IU/mL Normal 6-495 [facility] Comment on above: Order Comment: IN PA CU OF 1700 Performed By: #### L 501.5200, L509.1000 #### [facility] [address] [place], [address] L2100.0000on 05-12-2025 ACCA 32 units Normal 0-90 [facility] Comment on above: Order Comment: IN PA CU OF 1700 Result Comment: Nega tive: <80 Equivocal: 80-90 Positive: >90 Performed By: #### L 3100.5440, L3200.1100, L3100.3425, L3300.1200, L3100.6900, L3410.2350, L3100.2300, L2100.0000, L3200.0500, L3100.5020, L3410.9994 #### [facility] [address] [place], [place], [address] ALCA 2 units Normal 0-60 [facility] Comment on above: Order Comment: IN PA CU OF 170 Result Comment: Nega tive:<55 Equivocal: 55-60 Positive: >60 Performed By: #### L 3100.5440, L3200.1100, L3100.3425, L3300.1200, L3100.6900, L3410.2350, L3100.2300, L2100.0000, L3200.0500, L3100.5020, L3410.9994 #### [facility] [address] [place], [address] AMCA 7 units Normal 0-100 [facility] Comment on above: Order Comment: IN PA CU OF 1699 Result Comment: Nega tive: <90 Equivocal: 90-100 Positive: >100 This test was developed and its performance characteristics determined by [employer]. It has not been cleared or approved by the Food and Drug Administration. The FDA has determined that such clearance or approval is not necessary. Performed By: #### L 3100.5440, L3200.1100, L3100.3425, L3300.1200, L3100.6900, L3410.2350, L3100.2300, L2100.0000, L3200.0500, L3100.5020, L3410.9994 #### [facility] [address] [place], [place], [id number] Atypical pANCA Negative Normal Negative [facility] Comment on above: Order Comment: IN [place] CU OF 1699 Performed By: #### L 3100.5440, L3200.1100, L3100.3425, L3300.1200, L3100.6900, L3410.2350, L3100.2300, L2100.0000, L3200.0500, L3100.5020, L3410.9994 #### [facility] [address] [place], [place], [id number] COMMENT Comment Normal . [facility] Comment on above: Order Comment: IN [place] CU OF 1699 Result Comment: Shantal shahbaz is not suggestive of Inflammatory Bowel Disease Performed By: #### L 3100.5440, L3200.1100, L3100.3425, L3300.1200, L3100.6900, L3410.2350, L3100.2300, L2100.0000, L3200.0500, L3100.5020, L3410.9994 #### [facility] [address] [place], [place], [id number] Nanci 29 units Normal 0-50 [facility] Comment on above: Order Comment: IN [place] CU OF 1699 Result Comment: Nega tive: <45 Equivocal: 45-50 Positive: >50 Performed By: #### L 3100.5440, L3200.1100, L3100.3425, L3300.1200, L3100.6900, L3410.2350, L3100.2300, L2100.0000, L3200.0500, L3100.5020, L3410.9994 #### [facility] [address] [place], [place], [id number] Liver Profileon 10-26-2024 ALB Normal 3.4-4.8 [facility] Comment on above: Result Comment: Canc elled via OM: Order cancelled - Patient discharged Performed By: #### L 500.3400 #### [facility] [address] [place], [address] ALK PHOS Normal 35-104 [facility] Comment on above: Result Comment: Canc elled via OM: Order cancelled - Patient discharged Performed By: #### L 500.3400 #### [facility] [address] [place], [address] ALT Normal <=34 [facility] Comment on above: Result Comment: Canc elled via OM: Order cancelled - Patient discharged Performed By: #### L 500.3400 #### [facility] [address] [place], [address] AST Normal <=31 [facility] Comment on above: Result Comment: Canc elled via OM: Order cancelled - Patient discharged Performed By: #### L 500.3400 #### [facility] [address] [place], [address] D BILI Normal 0.00-0.30 [facility] Comment on above: Result Comment: Canc elled via OM: Order cancelled - Patient discharged Performed By: #### L 500.3400 #### [facility] [address] [place], [address] T BILI Normal 0.00-1.30 [facility] Comment on above: Result Comment: Canc elled via OM: Order cancelled - Patient discharged Performed By: #### L 500.3400 #### [facility] [address] [place], [address] T PROT Normal 5.9-8.4 [facility] Comment on above: Result Comment: Canc elled via OM: Order cancelled - Patient discharged Performed By: #### L 500.3400 #### [facility] [address] [place], [address] CBC W/Diff, Automatedon 05-0 -2024 Absolute Neut Normal 2.0-7.7 [facility] Comment on above: Result Comment: Canc elled via OM: Order cancelled - Patient discharged Performed By: #### L 500.3400, L100.0100 #### [facility] [address] [place], [address] HCT Normal 37-47 [facility] Comment on above: Result Comment: Canc elled via OM: Order cancelled - Patient discharged Performed By: #### L 500.3400, L100.0100 #### [facility] [address] [place], [address] HGB Normal 12.0-15.0 [facility] Comment on above: Result Comment: Canc elled via OM: Order cancelled - Patient discharged Performed By: #### L 500.3400, L100.0100 #### [facility] [address] [place], [address] MCH Normal 27.0-32.0 [facility] Comment on above: Result Comment: Canc elled via OM: Order cancelled - Patient discharged Performed By: #### L 500.3400, L100.0100 #### [facility] [address] [place], [address] MCHC Normal 32-36 [facility] Comment on above: Result Comment: Canc elled via OM: Order cancelled - Patient discharged Performed By: #### L 500.3400, L100.0100 #### [facility] [address] [place], [address] MCV Normal 81-99 [facility] Comment on above: Result Comment: Canc elled via OM: Order cancelled - Patient discharged Performed By: #### L 500.3400, L100.0100 #### [facility] [address] [place], [address] NEUT% Normal 47-70 [facility] Comment on above: Result Comment: Canc elled via OM: Order cancelled - Patient discharged Performed By: #### L 500.3400, L100.0100 #### [facility] [address] [place], [address] PLT Normal 150-450 [facility] Comment on above: Result Comment: Canc elled via OM: Order cancelled - Patient discharged Performed By: #### L 500.3400, L100.0100 #### [facility] [address] [place], [address] RBC Normal 4.2-5.4 [facility] Comment on above: Result Comment: Canc elled via OM: Order cancelled - Patient discharged Performed By: #### L 500.3400, L100.0100 #### [facility] [address] [place], [address] RDW CV Normal 11.6-14.6 [facility] Comment on above: Result Comment: Canc elled via OM: Order cancelled - Patient discharged Performed By: #### L 500.3400, L100.0100 #### [facility] [address] [place], [address] RDW SD Normal 35.1-43.9 [facility] Comment on above: Result Comment: Canc elled via OM: Order cancelled - Patient discharged Performed By: #### L 500.3400, L100.0100 #### [facility] [address] [place], [address] WBC Normal 4.4-11.0 [facility] Comment on above: Result Comment: Canc elled via OM: Order cancelled - Patient discharged Performed By: #### L 500.3400, L100.0100 #### [facility] [address] [place], [address] Liver Profileon 10-25-2024 ALB Normal 3.4-4.8 [facility] Comment on above: Result Comment: Canc elled via OM: Order cancelled - Patient discharged Performed By: #### L 500.3400, L100.0100 #### [facility] [address] [place], [address] ALK PHOS Normal 35-104 [facility] Comment on above: Result Comment: Canc elled via OM: Order cancelled - Patient discharged Performed By: #### L 500.3400, L100.0100 #### [facility] [address] [place], [address] ALT Normal <=34 [facility] Comment on above: Result Comment: Canc elled via OM: Order cancelled - Patient discharged Performed By: #### L 500.3400, L100.0100 #### [facility] [address] [place], [address] AST Normal <=31 [facility] Comment on above: Result Comment: Canc elled via OM: Order cancelled - Patient discharged Performed By: #### L 500.3400, L100.0100 #### [facility] [address] [place], [address] D BILI Normal 0.00-0.30 [facility] Comment on above: Result Comment: Canc elled via OM: Order cancelled - Patient discharged Performed By: #### L 500.3400, L100.0100 #### [facility] [address] [place], [address] T BILI Normal 0.00-1.30 [facility] Comment on above: Result Comment: Canc elled via OM: Order cancelled - Patient discharged Performed By: #### L 500.3400, L100.0100 #### [facility] [address] [place], [address] T PROT Normal 5.9-8.4 [facility] Comment on above: Result Comment: Canc elled via OM: Order cancelled - Patient discharged Performed By: #### L 500.3400, L100.0100 #### [facility] [address] [place], [address] Vitamin D 1,25-Dihydroxyon 0 5-09-2025 VIT D 1,25 DIHY 52.1 pg/mL Normal 24.8-81.5 [facility] Comment on above: Result Comment: Perf ormed at: [facility] [id number] [employer] Machine Operator: Maru Sue MD, Phone: [phone] Performed By: #### L 501.2300, L506.1001 #### [facility] [address] [place], [place], [id number] TIMOTHY Comprehensive Panelon ANTI-CENT B AB <0.2 Normal 0.0-0.9 [facility] Comment on above: Order Comment: IN [place] CU OF 1699 Performed By: #### L 3100.5440, L3200.1100, L3100.3425, L3300.1200, L3100.6900, L3410.2350, L3100.2300, L2100.0000, L3200.0500, L3100.5020, L3410.9994 #### [facility] [address] [place], [place], [address] ANTI-DNA (DS)AB <1 Normal 0-9 [facility] Comment on above: Order Comment: IN [place] CU OF 1699 Result Comment: Nega tive <5 Equivocal 5 - 9 Positive >9 Performed By: #### L 3100.5440, L3200.1100, L3100.3425, L3300.1200, L3100.6900, L3410.2350, L3100.2300, L2100.0000, L3200.0500, L3100.5020, L3410.9994 #### [facility] [address] [place], [place], [address] Absolute lymphocyte countOrd ered By: Monico Patterson on 10-24-2024 Lymphocytes Auto (Unsp spec) [#/Vol] 1.98 10*3/uL 0.83-4.51 [facility] Absolute neutrophil countOrd ered By: Monico Patterson on 10-24-2024 Neutrophils (Bld) [#/Vol] 5.1 10*3/uL 2.0-7.7 [facility] Anion gap in Serum or Plasma Ordered By: Monico Patterson on 10-24-2024 Anion gap [Moles/Vol] 13 mmol/L 5-15 [facility] Automated lymphocyte count a s percentage of total leukocytesOrdered By: Monico Patterson on 10-24-2024 Lymphocytes/100 WBC Auto (Unsp spec) 24.0 % [facility] BUN/creatinine ratioOrdered By: Monico Patterson on 10-24-2024 Urea nitrogen/Creatinine [Mass ratio] 8.6 mg/mg Low 04-07 [facility] Basic Metabolic Profile (BMP )on 10-24-2024 BUN/CRE 8.6 RATIO Low 04-07 [facility] Comment on above: Performed By: #### L 500.3400, L100.0100 #### [facility] [address] [place], [address] Calcium [Mass/Vol] 9.0 mg/dL Normal 7.6-11.0 [facility] Comment on above: Performed By: #### L 500.3400, L100.0100 #### [facility] [address] [place], [address] Chloride [Moles/Vol] 100 mmol/L Normal 98-108 [facility] Comment on above: Performed By: #### L 500.3400, L100.0100 #### [facility] [address] [place], [address] CO2 [Moles/Vol] 24.3 mmol/L Normal 21.0-32.0 [facility] Comment on above: Performed By: #### L 500.3400, L100.0100 #### [facility] [address] [place], [address] Creatinine [Mass/Vol] 0.61 mg/dL Low 0.70-1.20 [facility] Comment on above: Performed By: #### L 500.3400, L100.0100 #### [facility] [address] [place], [address] ECRCL 36.62 ml/min Low 50-250 [facility] Comment on above: Performed By: #### L 500.3400, L100.0100 #### [facility] [address] [place], [address] GAP 13 Normal 5-15 [facility] Comment on above: Performed By: #### L 500.3400, L100.0100 #### [facility] [address] [place], [address] GFR/1.73 sq M.predicted among non-blacks MDRD (S/P/Bld) [Vol rate/Area] 94 mL/min/{1.73_m2} Normal >60 [facility] Comment on above: Result Comment: mL/m in/1.73m2 CKD-EPI Creatinine Equation (2020) Performed By: #### L 500.3400, L100.0100 #### [facility] [address] [place], [address] Glucose [Mass/Vol] 108 mg/dL High 70-99 [facility] Comment on above: Performed By: #### L 500.3400, L100.0100 #### [facility] [address] [place], [address] Potassium [Moles/Vol] 3.8 mmol/L Normal 3.3-5.1 [facility] Comment on above: Performed By: #### L 500.3400, L100.0100 #### [facility] [address] [place], [address] Sodium [Moles/Vol] 137 mmol/L Normal 133-145 [facility] Comment on above: Performed By: #### L 500.3400, L100.0100 #### [facility] [address] [place], [address] Urea nitrogen [Mass/Vol] 5 mg/dL Normal 4-19 [facility] Comment on above: Performed By: #### L 500.3400, L100.0100 #### [facility] [address] [place], [address] Basophil percentageOrdered B y: Monico Patterson on 10-24-2024 Basophils/100 WBC (Bld) 0.2 % 0-1 [facility] Bilirubin directOrdered By: Monico Patterson on 10-24-2024 Bilirubin.direct [Mass/Vol] 0.18 mg/dL 0.00-0.30 [facility] Bilirubin, totalOrdered By: Monico Patterson on 10-24-2024 Bilirubin [Mass/Vol] 0.37 mg/dL 0.00-1.30 [facility] CBC W/Diff, Automatedon Absolute Lymph 1.98 X10 3/uL Normal 0.83-4.51 [facility] Comment on above: Performed By: #### L 500.3400, L100.0100 #### [facility] [address] [place] [place], [address] Absolute Neut 5.1 X10 3/uL Normal 2.0-7.7 [facility] Comment on above: Performed By: #### L 500.3400, L100.0100 #### [facility] [address] [place], [address] Basophils/100 WBC (Bld) 0.2 % Normal 0-1 [facility] Comment on above: Performed By: #### L 500.3400, L100.0100 #### [facility] [address] [place], [address] Eosinophils/100 WBC (Bld) 1.1 % Normal 0-5 [facility] Comment on above: Performed By: #### L 500.3400, L100.0100 #### [facility] [address] [place], [address] Erythrocyte distribution width (RBC) [Ratio] 14.7 % High 11.6-14.6 [facility] Comment on above: Performed By: #### L 500.3400, L100.0100 #### [facility] [address] [place], [address] Hematocrit (Bld) [Volume fraction] 37.7 % Normal 37-47 [facility] Comment on above: Performed By: #### L 500.3400, L100.0100 #### [facility] [address] [place], [address] Hemoglobin (Bld) [Mass/Vol] 13.4 g/dL Normal 12.0-15.0 [facility] Comment on above: Performed By: #### L 500.3400, L100.0100 #### [facility] [address] [place], [address] IG% 0.200 Normal 0.0-0.9 [facility] Comment on above: Result Comment: IG% - Immature Granulocytes (promyelocytes, myelocytes and metamyelocytes) > 1% indicates that a LEFT SHIFT is Present. Performed By: #### L 500.3400, L100.0100 #### [facility] [address] [place], [address] Lymphocytes/100 WBC (Bld) 24.0 % Normal 19-41 [facility] Comment on above: Performed By: #### L 500.3400, L100.0100 #### [facility] [address] [place], [address] MCH (RBC) [Entitic mass] 32.8 pg High 27.0-32.0 [facility] Comment on above: Performed By: #### L 500.3400, L100.0100 #### [facility] [address] [place], [address] MCHC (RBC) [Mass/Vol] 35.5 g/dL Normal 32-36 [facility] Comment on above: Performed By: #### L 500.3400, L100.0100 #### [facility] [address] [place], [address] MCV (RBC) [Entitic vol] 92.2 fL Normal 81-99 [facility] Comment on above: Performed By: #### L 500.3400, L100.0100 #### [facility] [address] [place], [address] Monocytes/100 WBC (Bld) 13.0 % High 0-10 [facility] Comment on above: Performed By: #### L 500.3400, L100.0100 #### [facility] [address] [place], [address] Neutrophils/100 WBC (Bld) 61.5 % Normal 47-70 [facility] Comment on above: Performed By: #### L 500.3400, L100.0100 #### [facility] [address] [place], [address] Nucleated RBC (Bld) [#/Vol] 0 10*3/uL Normal 0-5 [facility] Comment on above: Performed By: #### L 500.3400, L100.0100 #### [facility] [address] [place], [address] Platelet mean volume (Bld) [Entitic vol] 10.8 fL Normal 6.2-12.0 [facility] Comment on above: Performed By: #### L 500.3400, L100.0100 #### [facility] [address] [place], [address] Platelets (Bld) [#/Vol] 146 10*3/uL Low 150-450 [facility] Comment on above: Performed By: #### L 500.3400, L100.0100 #### [facility] [address] [place], [address] RBC (Bld) [#/Vol] 4.09 10*6/uL Low 4.2-5.4 [facility] Comment on above: Performed By: #### L 500.3400, L100.0100 #### [facility] [address] [place], [address] RDW SD 50.3 fl High 35.1-43.9 [facility] Comment on above: Performed By: #### L 500.3400, L100.0100 #### [facility] [address] [place], [address] WBC (Bld) [#/Vol] 8.3 10*3/uL Normal 4.4-11.0 [facility] Comment on above: Performed By: #### L 500.3400, L100.0100 #### [facility] [address] [place], [address] Carbon dioxide, total [Moles /volume] in Central venous bloodOrdered By: Monico Patterson on 10-24-2024 CO2 [Moles/Vol] 24.3 mmol/L 21.0-32.0 [facility] Chloride assayOrdered By: Uche Patterson on 10-24-2024 Chloride [Moles/Vol] 100 mmol/L 98-108 [facility] Discharge Instructionon Discharge Instruction [facility] Medical Records Department [address] [place] [address] Instructions for Home/Discharge Instructions 10/24/24 1100 MR#: [id number] Acct: [id number] Name: ROBI OLIVARES Rep #: [id number] : 1950 73 From: Monico Patterson MD PCP: Dr. Jose Hyde MD Status:ADM IN Discharge Instructions Diet Discharge Diet: No restrictions DC O2, CPAP, BIPAP needs Home O2 Discharge instructions: No Dressing / Incision Discharge Activity: Return to Normal Activity Weight Bearing Status: Weight bearing as tolerated Dressing / Incision Call your doctor if you observe: Fever of 101 or Higher, Coldness, Increased Pain, Numbness or Tingling, Change in Color, Inability to urinate, Inability to have a bowel movement, Shortness of breath, Dizziness, Fainting spells, Swelling in the ankles, Chest pain, Prolonged hiccupping, Increased palpitations (irregular heartbeat) and Calf discomfort Follow Up Care When: IN 2 WEEKS Test Results: Test results from this visit will be discussed in further detail at your follow-up appointment, if applicable. Discharge Plan Admission Admit Date/Time: 10/21/24 18:40 Primary Reason for Your Visit: Loss of appetite loss of weight Attending Provider: Monico Patterson Primary Care Provider: Jose Hyde Consulting Providers: Mango Cornejo Discharge Orders/Prescriptions Prescriptions: New Biotene Dry Mouth Oral Rinse Mouthwash 15 ml mucous membrane 4X/DAYCM 30 Days Qty: 1000 0RF potassium, sodium phosphates 280-160-250 mg Powder In Packet 1 packet PO TID 5 Days Qty: 15 0RF Continued bupropion HCl [Wellbutrin SR] 100 mg tablet sustained-release 12 hr 100 mg PO DAILY atenolol 25 MG tablet 25 mg PO DAILY Patient Comments: BP clopidogrel 75 MG tablet 75 mg PO DAILY Patient Comments: ANTIPLATLET nitroglycerin 0.4 MG tablet 0.4 mg Sublingual Q5M PRN (Reason: Chest Pain) sertraline 100 mg tablet 100 mg PO DAILY Patient Comments: MOOD levothyroxine 50 mcg tablet 50 mcg PO DAILY Patient Comments: THYROID valacyclovir 500 mg tablet 500 mg PO DAILY quetiapine 100 mg tablet 100 mg PO QHS amlodipine 10 mg tablet 10 mg PO DAILY sertraline 50 mg tablet 50 mg PO DAILY atorvastatin 80 mg tablet 80 mg PO QHS Qty: 30 12RF Changed pantoprazole 40 MG tablet 20 mg PO DAILY 30 Days Qty: 0 0RF Patient Comments: STOMACH Referrals / Follow Up: Jose Hyde MD [Primary Care Provider] - 10/31/24 2:00 pm ( Appointment is with ALEJANDRA Pyle. ) Swetha Cheatham PA [Med Staff - Adv Practice Prof] - 10/31/24 1:30 pm () Disposition Discharge Orders: Discharge Patient (Routine); Ordered 10/24/24 Ordered By: Dr. Monico Patterson 10/24/24 1405 Monico Patterson MD CC: Dr. Mango Corenjo DO; Dr. Jose Hyde MD Signed Normal [facility] Eosinophil percentageOrdered By: Monico Patterson on 10-24-2024 Eosinophils/100 WBC (Bld) 1.1 % 0-5 [facility] Erythrocyte distribution wid th ratioOrdered By: Monico Patterson on 10-24-2024 Erythrocyte distribution width (RBC) [Ratio] 14.7 % High 11.6-14.6 [facility] Erythrocyte distribution wid th standard deviationOrdered By: Monico Patterson on 10-24-2024 Erythrocyte distribution width (RBC) [Ratio] 50.3 fl High 35.1-43.9 [facility] Glomerular filtration rate ( GFR) estimation/1.73 sq m using serum, plasma, or whole bOrdered By: Monico Patterson on 10-24-2024 GFR/1.73 sq M.predicted among non-blacks MDRD (S/P/Bld) [Vol rate/Area] 94 mL/min/{1.73_m2} >60 [facility] Comment on above: mL/min/1.73m2 CKD-EP I Creatinine Equation (2020) Hematocrit Auto (Bld) [Volum e fraction]Ordered By: Monico Patterson on 10-24-2024 Hematocrit (Bld) [Volume fraction] 37.7 % 37-47 [facility] Hemoglobin measurementOrdere d By: Monico Patterson on 10-24-2024 Hemoglobin (Bld) [Mass/Vol] 13.4 g/dL 12.0-15.0 [facility] Immature granulocytes/100 WB C Auto (Bld)Ordered By: Monico Patterson on 10-24-2024 Immature granulocytes/100 WBC (Bld) 0.200 % 0.0-0.9 [facility] Comment on above: IG% - Immature Granu locytes (promyelocytes, myelocytes and metamyelocytes) > 1% indicates that a LEFT SHIFT is Present. L501.5101on 10-24-2024 GGTP 25 IU/L Normal 0-60 [facility] Comment on above: Result Comment: Perf ormed at: - [facility] [address] [id number] [employer] Machine Operator: Orlin Wagner PhD, Phone: [phone] Performed By: #### L 500.3400, L100.0100 #### [facility] [address] [place], [address] Laboratory - Chemistry and C hemistry - challengeOrdered By: Moinco Patterson on 10-24-2024 AST [Catalytic activity/Vol] 20 U/L <32 [facility] Liver Profileon 10-24-2024 Albumin [Mass/Vol] 3.3 g/dL Low 3.4-4.8 [facility] Comment on above: Performed By: #### L 500.3400, L100.0100 #### [facility] [address] [place], [address] ALK PHOS 61 U/L Normal 35-104 [facility] Comment on above: Performed By: #### L 500.3400, L100.0100 #### [facility] [address] [place], [address] ALT [Catalytic activity/Vol] 23 U/L Normal <=34 [facility] Comment on above: Performed By: #### L 500.3400, L100.0100 #### [facility] [address] [place], [address] AST [Catalytic activity/Vol] 20 U/L Normal <=31 [facility] Comment on above: Performed By: #### L 500.3400, L100.0100 #### [facility] [address] [place], [address] Bilirubin [Mass/Vol] 0.37 mg/dL Normal 0.00-1.30 [facility] Comment on above: Performed By: #### L 500.3400, L100.0100 #### [facility] [address] [place], [place], [address] Bilirubin.direct [Mass/Vol] 0.18 mg/dL Normal 0.00-0.30 [facility] Comment on above: Performed By: #### L 500.3400, L100.0100 #### [facility] [address] [place], [address] Globulin (S) [Mass/Vol] 2.6 g/dL Normal 2.2-4.2 [facility] Comment on above: Performed By: #### L 500.3400, L100.0100 #### [facility] [address] [place], [address] T PROT 5.9 g/dL Normal 5.9-8.4 [facility] Comment on above: Performed By: #### L 500.3400, L100.0100 #### [facility] [address] [place], [address] MCV (mean corpuscular volume ) determinationOrdered By: Monico Patterson on 10-24-2024 MCV (RBC) [Entitic vol] 92.2 fL 81-99 [facility] Mean corpuscular hemoglobin (MCH) determinationOrdered By: Monico Patterson on 10-24-2024 MCH (RBC) [Entitic mass] 32.8 pg High 27.0-32.0 [facility] Mean corpuscular hemoglobin concentration (MCHC) determinationOrdered By: Monico Patterson on 10-24-2024 MCHC (RBC) [Mass/Vol] 35.5 g/dL 32-36 [facility] Mean platelet volume determi nationOrdered By: Monico Patterson on 10-24-2024 Platelet mean volume (Bld) [Entitic vol] 10.8 fL 6.2-12.0 [facility] Monocyte percentageOrdered B y: Monico Patterson on 10-24-2024 Monocytes/100 WBC (Bld) 13.0 % High 0-10 [facility] Neutrophil percentageOrdered By: Monico Patterson on 10-24-2024 Neutrophils/100 WBC (Bld) 61.5 % 47-70 [facility] Non-gynecologic cytology rep ortOrdered By: Janice Hannah on 10-24-2024 Study report [facility] Nucleated red blood cell per centageOrdered By: Monico Patterson on 10-24-2024 Nucleated RBC/100 WBC (Bld) [Ratio] 0 % 0-5 [facility] Platelet countOrdered By: Uche Patterson on 10-24-2024 Platelets (Bld) [#/Vol] 146 10*3/uL Low 150-450 [facility] Potassium measurement (mass/ volume)Ordered By: Monico Patterson on 10-24-2024 Potassium (Unsp spec) [Mass/Vol] 3.8 mmol/L 3.3-5.1 [facility] RBC Auto (Bld) [#/Vol]Ordere d By: Monico Patterson on 10-24-2024 RBC (Bld) [#/Vol] 4.09 10*6/uL Low 4.2-5.4 [facility] Serum creatinine measurement (mass/volume)Ordered By: Monico Patterson on 10-24-2024 Creatinine [Mass/Vol] 0.61 mg/dL Low 0.70-1.20 [facility] Serum globulin measurementOr dered By: Monico Patterson on 10-24-2024 Globulin (S) [Mass/Vol] 2.6 g/dL 2.2-4.2 [facility] Serum glucose measurement (m ass/volume)Ordered By: Monico Patterson on 10-24-2024 Glucose [Mass/Vol] 108 mg/dL High 70-99 [facility] Serum or plasma alanine chavira otransferase (ALT) measurementOrdered By: Monico Patterson on 10-24-2024 ALT [Catalytic activity/Vol] 23 U/L <35 [facility] Serum or plasma albumin hair urement (mass/volume)Ordered By: Monico Patterson on 10-24-2024 Albumin [Mass/Vol] 3.3 g/dL Low 3.4-4.8 [facility] Serum or plasma alkaline mary anne sphatase measurementOrdered By: Monico Patterson on 10-24-2024 ALP [Catalytic activity/Vol] 61 U/L 35-104 [facility] Serum or plasma calcium hair urement (mass/volume)Ordered By: Monico Patterson on 10-24-2024 Calcium [Mass/Vol] 9.0 mg/dL 7.6-11.0 [facility] Serum or plasma urea nitroge n measurement (mass/volume)Ordered By: Monico Patterson on 10-24-2024 Urea nitrogen [Mass/Vol] 5 mg/dL 4-19 [facility] Sodium levelOrdered By: Rochelle Patterson on 10-24-2024 Sodium [Moles/Vol] 137 mmol/L 133-145 [facility] Total proteinOrdered By: Neva Patterson on 10-24-2024 Protein [Mass/Vol] 5.9 g/dL 5.9-8.4 [facility] White blood cell (WBC) count Ordered By: Monico Patterson on 10-24-2024 WBC (Bld) [#/Vol] 8.3 10*3/uL 4.4-11.0 [facility] ENTERIC PATHOGEN PANEL STOOL on 10-23-2024 EP PANEL Normal Reference Ran ge = Not Detected Nucleic acid amplification test method Not detected for Campylobacter group, Salmonella species, Shigella species, Vibrio Group, Yersinia enterocolitica, EHEC (Shiga Toxin 1, Shiga Toxin 2), Norovirus Gl/Gll, and Rotavirus A. Other common stool pathogens are not detected on this panel include: Aeromonas/Plesiomonas or parasites. Order testing for these organisms separately if suspected. This is an amplified DNA test which makes it both specific and sensitive. CAMPYLOBACTER Not Detected Norovirus Not Detected Rotavirus Not Detected Salmonella Not Detected Shiga Toxin Not Detected Shigella sp. Not Detected VIBRIO Not Detected Yersinia Not Detected Normal [facility] Comment on above: Performed By: #### L 499.0043 #### [facility] [address] [place], [address] Gamma glutamyl transferase ( GGT) measurementOrdered By: Monico Patterson on 10-23-2024 Amylase [Catalytic activity/Vol] 25 U/L 0-60 [facility] Comment on above: Performed at: [address] [id number] Director: Orlin Wagner PhD, Phone: [phone] LDHon 10-23-2024 LDH 264 U/L High 84-246 [facility] Comment on above: Result Comment: Hemo lysis present, Results??could be affected. ?? Performed By: #### L 500.3400, L100.0100 #### [facility] [address] [place], [address] Lactate dehydrogenase (LDH) measurementOrdered By: Monico Patterson on 10-23-2024 LDH [Catalytic activity/Vol] 264 U/L High 84-246 [facility] Comment on above: Hemolysis present, R esults could be affected. Liver Profileon 10-23-2024 Albumin [Mass/Vol] 3.2 g/dL Low 3.4-4.8 [facility] Comment on above: Performed By: #### L 500.3400, L100.0100 #### [facility] [address] [place], [address] ALK PHOS 60 U/L Normal 35-104 [facility] Comment on above: Performed By: #### L 500.3400, L100.0100 #### [facility] [address] [place], [address] ALT [Catalytic activity/Vol] 28 U/L Normal <=34 [facility] Comment on above: Performed By: #### L 500.3400, L100.0100 #### [facility] [address] [place], [address] AST [Catalytic activity/Vol] 28 U/L Normal <=31 [facility] Comment on above: Performed By: #### L 500.3400, L100.0100 #### [facility] [address] [place], [address] Bilirubin [Mass/Vol] 0.28 mg/dL Normal 0.00-1.30 [facility] Comment on above: Performed By: #### L 500.3400, L100.0100 #### [facility] [address] [place], [address] Bilirubin.direct [Mass/Vol] 0.11 mg/dL Normal 0.00-0.30 [facility] Comment on above: Performed By: #### L 500.3400, L100.0100 #### [facility] [address] [place], [address] Globulin (S) [Mass/Vol] 2.6 g/dL Normal 2.2-4.2 [facility] Comment on above: Performed By: #### L 500.3400, L100.0100 #### [facility] [address] [place], [address] T PROT 5.8 g/dL Low 5.9-8.4 [facility] Comment on above: Performed By: #### L 500.3400, L100.0100 #### [facility] [address] [place], [address] Phosphoruson 10-23-2024 Phosphate [Mass/Vol] 2.1 mg/dL Low 2.7-4.5 [facility] Comment on above: Performed By: #### L 501.2300, L506.1001 #### [facility] [address] [place], [address] Vitamin D,25 Hydroxyon 10-23 Vitamin D 25-OH 38.8 ng/mL Normal 30-100 [facility] Comment on above: Result Comment: Leisa min D Status Deficiency: <20 ng/mL (50nmol/L) Insufficiency: 20-30 ng/mL (50-75 nmol/L) Sufficiency: 30-100 ng/mL (75-250 nmol/L) Toxicity: >100 ng/mL (>250 nmol/L) Performed By: #### L 501.2300, L506.1001 #### [facility] [address] [place], [address] CBC W/Diff, Automatedon 05-0 6-5 Absolute Lymph 1.29 X10 3/uL Normal 0.83-4.51 [facility] Comment on above: Performed By: #### L 501.5200, L509.1000 #### [facility] [address] [place], [address] Absolute Neut 3.7 X10 3/uL Normal 2.0-7.7 [facility] Comment on above: Performed By: #### L 501.5200, L509.1000 #### [facility] [address] [place], [address] Basophils/100 WBC (Bld) 0.3 % Normal 0-1 [facility] Comment on above: Performed By: #### L 501.5200, L509.1000 #### [facility] [address] [place], [address] Eosinophils/100 WBC (Bld) 2.0 % Normal 0-5 [facility] Comment on above: Performed By: #### L 501.5200, L509.1000 #### [facility] [address] [place], [address] Erythrocyte distribution width (RBC) [Ratio] 14.4 % Normal 11.6-14.6 [facility] Comment on above: Performed By: #### L 501.5200, L509.1000 #### [facility] [address] [place], [address] Hematocrit (Bld) [Volume fraction] 35.7 % Low 37-47 [facility] Comment on above: Performed By: #### L 501.5200, L509.1000 #### [facility] [address] [place], [address] Hemoglobin (Bld) [Mass/Vol] 12.8 g/dL Normal 12.0-15.0 [facility] Comment on above: Performed By: #### L 501.5200, L509.1000 #### [facility] [address] [place], [address] IG% 0.700 Normal 0.0-0.9 [facility] Comment on above: Result Comment: IG% - Immature Granulocytes (promyelocytes, myelocytes and metamyelocytes) > 1% indicates that a LEFT SHIFT is Present. Performed By: #### L 501.5200, L509.1000 #### [facility] [address] [place], [address] Lymphocytes/100 WBC (Bld) 21.5 % Normal 19-41 [facility] Comment on above: Performed By: #### L 501.5200, L509.1000 #### [facility] [address] [place], [address] MCH (RBC) [Entitic mass] 32.8 pg High 27.0-32.0 [facility] Comment on above: Performed By: #### L 501.5200, L509.1000 #### [facility] [address] [place], [address] MCHC (RBC) [Mass/Vol] 35.9 g/dL Normal 32-36 [facility] Comment on above: Performed By: #### L 501.5200, L509.1000 #### [facility] [address] [place], [address] MCV (RBC) [Entitic vol] 91.5 fL Normal 81-99 [facility] Comment on above: Performed By: #### L 501.5200, L509.1000 #### [facility] [address] [place], [address] Monocytes/100 WBC (Bld) 14.7 % High 0-10 [facility] Comment on above: Performed By: #### L 501.5200, L509.1000 #### [facility] [address] [place], [address] Neutrophils/100 WBC (Bld) 60.8 % Normal 47-70 [facility] Comment on above: Performed By: #### L 501.5200, L509.1000 #### [facility] [address] [place], [address] Nucleated RBC (Bld) [#/Vol] 0 10*3/uL Normal 0-5 [facility] Comment on above: Performed By: #### L 501.5200, L509.1000 #### [facility] [address] [place], [address] Platelet mean volume (Bld) [Entitic vol] 10.6 fL Normal 6.2-12.0 [facility] Comment on above: Performed By: #### L 501.5200, L509.1000 #### [facility] [address] [place], [address] Platelets (Bld) [#/Vol] 149 10*3/uL Low 150-450 [facility] Comment on above: Performed By: #### L 501.5200, L509.1000 #### [facility] [address] [place], [address] RBC (Bld) [#/Vol] 3.90 10*6/uL Low 4.2-5.4 [facility] Comment on above: Performed By: #### L 501.5200, L509.1000 #### [facility] [address] [place], [address] RDW SD 48.1 fl High 35.1-43.9 [facility] Comment on above: Performed By: #### L 501.5200, L509.1000 #### [facility] [address] [place], [address] WBC (Bld) [#/Vol] 6.0 10*3/uL Normal 4.4-11.0 [facility] Comment on above: Performed By: #### L 501.5200, L509.1000 #### [facility] [address] [place], [address] Calculated very low density lipoprotein (VLDL) cholesterol measurementOrdered By: Mango Gale on 10-22-2024 Calculated very low density lipoprotein (VLDL) cholesterol measurement 17 mg/dL 5-40 [facility] Comprehensive Metabolic Prof ilon 10-22-2024 Albumin [Mass/Vol] 3.0 g/dL Low 3.4-4.8 [facility] Comment on above: Performed By: #### L 499.0043 #### [facility] [address] [place], [address] Albumin/Globulin [Mass ratio] 1.2 {ratio} Normal 0.9-2.4 [facility] Comment on above: Performed By: #### L 499.0043 #### [facility] [address] [place], [address] ALK PHOS 55 U/L Normal 35-104 [facility] Comment on above: Performed By: #### L 499.0043 #### [facility] [address] [place], [address] ALT [Catalytic activity/Vol] 32 U/L Normal <=34 [facility] Comment on above: Performed By: #### L 499.0043 #### [facility] [address] [place], [address] AST [Catalytic activity/Vol] 28 U/L Normal <=31 [facility] Comment on above: Performed By: #### L 499.0043 #### [facility] [address] [place], [address] Bilirubin [Mass/Vol] 0.30 mg/dL Normal 0.00-1.30 [facility] Comment on above: Performed By: #### L 499.0043 #### [facility] [address] [place], [address] BUN/CRE 9.8 RATIO Low 10-20 [facility] Comment on above: Performed By: #### L 499.0043 #### [facility] [address] [place], [address] Calcium [Mass/Vol] 8.5 mg/dL Normal 7.6-11.0 [facility] Comment on above: Performed By: #### L 499.0043 #### [facility] [address] [place], [address] Chloride [Moles/Vol] 104 mmol/L Normal 98-108 [facility] Comment on above: Performed By: #### L 499.0043 #### [facility] [address] [place], [address] CO2 [Moles/Vol] 15.9 mmol/L Low 21.0-32.0 [facility] Comment on above: Performed By: #### L 499.0043 #### [facility] [address] [place], [address] Creatinine [Mass/Vol] 0.56 mg/dL Low 0.70-1.20 [facility] Comment on above: Performed By: #### L 499.0043 #### [facility] [address] [place], [address] ECRCL 36.72 ml/min Low 50-250 [facility] Comment on above: Performed By: #### L 499.0043 #### [facility] [address] [place], [address] GAP 19 High 5-15 [facility] Comment on above: Performed By: #### L 499.0043 #### [facility] [address] [place], [address] GFR/1.73 sq M.predicted among non-blacks MDRD (S/P/Bld) [Vol rate/Area] 96 mL/min/{1.73_m2} Normal >60 [facility] Comment on above: Result Comment: mL/m in/1.73m2 CKD-EPI Creatinine Equation (2020) Performed By: #### L 499.0043 #### [facility] [address] [place], [address] Globulin (S) [Mass/Vol] 2.5 g/dL Normal 2.2-4.2 [facility] Comment on above: Performed By: #### L 499.0043 #### [facility] [address] [place], [address] Glucose [Mass/Vol] 74 mg/dL Normal 70-99 [facility] Comment on above: Performed By: #### L 499.0043 #### [facility] [address] [place], [address] Potassium [Moles/Vol] 3.7 mmol/L Normal 3.3-5.1 [facility] Comment on above: Performed By: #### L 499.0043 #### [facility] [address] [place], [address] Sodium [Moles/Vol] 139 mmol/L Normal 133-145 [facility] Comment on above: Performed By: #### L 499.0043 #### [facility] [address] [place], [address] T PROT 5.5 g/dL Low 5.9-8.4 [facility] Comment on above: Performed By: #### L 499.0043 #### [facility] [address] [place], [address] Urea nitrogen [Mass/Vol] 6 mg/dL Normal 4-19 [facility] Comment on above: Performed By: #### L 499.0043 #### [facility] [address] [place], [address] ERCP Biliary/Pancreason ERCP Biliary/Pancreas [facility] Services [address] [place] [address] ERCP Biliary/Pancreas MR#: [id number] Acct: [id number] Name: ROBI OLIVARES Rep #: [id number] : 1950 F 73 From: Avery Garza MD PCP: Dr. Jose Hyde MD Status: ADM IN Study: ERCP Biliary/Pancreas Date of Exam: 10/22/24 Exam# [id number] Ordering Dr: Heber Borrego DO EXAM: ENDOSCOPIC RETROGRADE CHOLANGIOPANCREATOGRAPHY WITH MOBILE C-ARM CLINICAL HISTORY: ABDOMINAL PAIN. COMPARISON: NO RELEVANT PRIOR. TECHNIQUE: Eleven (10) images were acquired with mobile C-arm during ERCP procedure. FINDINGS: Endoscope projects over the epigastric region. Marked levoscoliosis of the lumbar spine. Status post surgical fusion with instrumentation, lumbar spine. Normal contrast opacified intrahepatic and extrahepatic bile ducts. No intraluminal filling defects are demonstrated. No strictures are demonstrated. Contrast noted opacifying the gallbladder. No contrast material is visualized in the duodenum. No intraperitoneal extravasation of contrast. Fluoroscopy: 83.7 sec Dose: 10.35 mGy RAD/ERCP Biliary/Pancreas IMPRESSION: No contrast visualized in the duodenum on this ERCP procedure. Otherwise unremarkable procedure. Reading Location: [facility] CC: Dr. Jose Hyde MD; Heber Borrego DO Surgical Technician: Signed Normal [facility] ERCP Reporton 10-22-2024 ERCP Report [facility] Medical Records Department [address] [place] [address] ERCP Report MR#: [id number] Acct: [id number] Name: ROBI OLIVARES Rep #: [id number] : 1950 73 From: Heber Borrego DO PCP: Dr. 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 Refer to note in patient chart for documentation of history and physical. Patient has symptoms of acute abdominal cramping, acute right upper quadrant abdominal pain and acute vomiting. Complications: No immediate complications. Procedure: Pre-Anesthesia Assessment: - Prior to the procedure, a History and Physical was performed, and patient medications and allergies were reviewed. The patient is competent. The risks and benefits of the procedure and the sedation options and risks were discussed with the patient. All questions were answered and informed consent was obtained. Patient identification and proposed procedure were verified by the physician in the pre-procedure area. Mental Status Examination: alert and oriented. Airway Examination: normal oropharyngeal airway and neck mobility. Respiratory Examination: clear to auscultation. CV Examination: normal. Prophylactic Antibiotics: The patient does not require prophylactic antibiotics. Prior Anticoagulants: The patient has taken no anticoagulant or antiplatelet agents except for NSAID medication. ASA Grade Assessment: II - A patient with mild systemic disease. After reviewing the risks and benefits, the patient was deemed in satisfactory condition to undergo the procedure. The anesthesia plan was to use moderate sedation / analgesia (conscious sedation). Immediately prior to administration of medications, the patient was re-assessed for adequacy to receive sedatives. The heart rate, respiratory rate, oxygen saturations, blood pressure, adequacy of pulmonary ventilation, and response to care were monitored throughout the procedure. The physical status of the patient was re-assessed after the procedure. After obtaining informed consent, the scope was passed under direct vision. Throughout the procedure, the patient's blood pressure, pulse, and oxygen saturations were monitored continuously. The Duodenoscope was introduced through the mouth, and advanced to the duodenum and used to inject contrast into the bile duct and ventral pancreatic duct. The ERCP was accomplished without difficulty. The patient tolerated the procedure well. Scope In: 4:31:50 PM Scope Out: 5:17:26 PM Total Procedure Duration Time 0 hours 45 minutes 36 seconds Findings: The nursing associate film was normal. The esophagus was successfully intubated under direct vision. The scope was advanced to a normal major papilla in the descending duodenum without detailed examination of the pharynx, larynx and associated structures, and upper GI tract. The upper GI tract was grossly normal. The ventral pancreatic duct was deeply cannulated with the short-nosed traction sphincterotome. Contrast was injected. I personally interpreted the pancreatic duct images. There was brisk flow of contrast through the ducts. Image quality was adequate. Contrast extended to the proximal pancreatic duct. Opacification of the ventral pancreatic duct in the head of the pancreas was successful. The maximum diameter of the ducts was 3 mm. Localized irregularity of the pancreatic duct was seen in the ventral pancreatic duct in the head of the pancreas. A long 0.025 inch Jagwire was passed into the ventral pancreatic duct. A 5 mm ventral pancreatic sphincterotomy was made with a traction (standard) sphincterotome using ERBE electrocautery. There was no post-sphincterotomy bleeding. To discover objects, the biliary tree was swept with a 6 mm balloon starting at the main pancreatic duct. Debris was swept from the duct. One 5 Fr by 7 cm temporary stent was placed 7 cm into the ventral pancreatic duct. Clear fluid flowed through the stent. The stent was in good position. A long 0.025 inch Jagwire was passed into the biliary tree. The short-nosed traction sphincterotome was passed over the guidewire and the bile duct was then deeply cannulated. Contrast was injected. Opacification of the entire opacified area and entire biliary tree was successful. The maximum diameter of the ducts was 10 mm. The lower third of the main bile duct contained a single localized stenosis 6 mm in length. The biliary orifice was stenotic. This appeared benign. A 5 mm biliary sp (more content not included)... Normal [facility] L499.0042on 10-22-2024 Trop T High Sen 25 ng/L High <=14 [facility] Comment on above: Performed By: #### L 499.0043 #### [facility] [address] [place], [address] L499.0043on 10-22-2024 Trop T High Sen 21 ng/L High <=14 [facility] Comment on above: Performed By: #### L 499.0043 #### [facility] [address] [place], [place], [address] [phone] calc ser/plasOrdered By: Mango Gale on 10-22-2024 Cholesterol in LDL [Mass/Vol] 91 mg/dL [facility] Comment on above: Dyzbpjmyvm=004-565 m g/dL & Higher Vnig=892 mg/dL or greater Lipid Profileon 10-22-2024 CHOL:HDL 3.45 Normal [facility] Comment on above: Performed By: #### L 499.0043 #### [facility] [address] [place], [place], [id number] (412) Cholesterol [Mass/Vol] 153 mg/dL Normal <=200 [facility] Comment on above: Result Comment: Chol esterol level, Desirable <200 mg/dL Borderline high cholesterol 200-239 mg/dL High cholesterol >=240 mg/dL Recommendations of the NCEP Adult Treatment Panel for the following risk-cutoff thresholds for the [place] population. Performed By: #### L 499.0043 #### [facility] [address] [place], [address] Cholesterol in HDL [Mass/Vol] 44 mg/dL Normal [facility] Comment on above: Result Comment: Dea onal Cholesterol Education Program (NCEP) guidelines: <40 mg/dL: Low HDL-cholesterol (major risk factor for CHD) >= 60 mg/dL: High HDL-cholesterol (negative risk factor for CHD) HDL-cholesterol is affected by a number of factors, e.g. smoking, exercise, hormones, sex and age. Performed By: #### L 499.0043 #### [facility] [address] [place], [address] Cholesterol in LDL [Mass/Vol] 91 mg/dL Normal [facility] Comment on above: Result Comment: Bord insnvx=748-944 mg/dL Higher Zjws=646 mg/dL or greater Performed By: #### L 499.0043 #### [facility] [address] [place], [address] Cholesterol in VLDL [Mass/Vol] 17 mg/dL Normal 5-40 [facility] Comment on above: Performed By: #### L 499.0043 #### [facility] [address] [place], [address] Triglyceride [Mass/Vol] 86 mg/dL Normal [facility] Comment on above: Result Comment: The drugs N-Acetylcysteine and Metamizole may falsely depress this assay. Normal range: <150 mg/dL Borderline High: 150-199 mg/dL High: 200-499 mg/dL Very High: >500 mg/dL Performed By: #### L 499.0043 #### [facility] [address] [facility] [place], [address] MR/CON.PCM.GIon 10-22-2024 MR/CON.PCM.GI [facility] Medical Records Department [address] [facility] [place] [address] Consultation - 10/22/24 1454 MR#: [id number] Acct: [id number] Name: ROBI OLIVARES Rep #: [id number] : 1950 73 From: Heber Borrego PCP: Dr. Jose Hyde MD Status:ADM IN Location: [place] [id number] HPI Consult Data Date of Consult: 10/22/24 HPI Narrative Reason for Consultation: Abnormal CT and abnormal MRI HPI Narrative: 73-year-old female history of non-ST segment elevation MN with CAD and stent on Plavix. Hypothyroidism and states she was taken off her medication. She has a history of COPD but she quit smoking 2 months ago. She says that she some never she eats she gets abdominal pain and has nausea and vomiting. She also has been having left 5-10 episodes of diarrhea a day. She has lost at least 20 pounds and her weight currently is 83 pounds with a BMI of 14.7. She is also been off her thyroid medication. Sodium 134, Potassium 2.2 L*, Chloride 89 L, Carbon Dioxide 19.9 L, Anion Gap 24 H, BUN 11, Creatinine 0.81, Calcium 11.4 H, Total Bilirubin 0.45, AST 40 H, ALT 48 H, Alkaline Phosphatase 75, Total Protein 7.3, Albumin 4.0, Amylase 26 L, Lipase 43, TSH 2.50 CT/Abdomen/Pelvis W IV Cont ONLY IMPRESSION: 1. Limited exam as above. 2. Mild wall thickening versus underdistention involving the rectosigmoid colon and cecum. Correlate for mild colitis and recommend clinical follow-up to ensure resolution and no underlying lesion. No definite adjacent inflammation to confirm colitis. 3. Mildly dilated CBD to 9 mm without calcified stone or other visible obstructing process. Correlate with serum bilirubin and consider MRCP as indicated. 4. Appendix not identified. No definite inflammation in the region. 5. Additional description as above. MRI/MRCP Abdomen without Contrast 1. Motion limited noncontrast exam. 2. Redemonstrated mild biliary dilatation without definite filling defect identified allowing for motion to suggest choledocholithiasis. Findings could reflect ampullary stenosis or perhaps less likely an occult ampullary lesion, and would be optimally evaluated by ERCP. Correlate with serum bilirubin. L [facility] Medical History Alcohol abuse Bipolar disorder Depression Chronic pain Rheumatoid arthritis Osteoporosis GERD (gastroesophageal reflux disease) Former smoker Atrial fibrillation Hypertension Myocardial infarct Migraines Atherosclerotic heart disease of [place] coronary artery without angina pectoris Pure hypercholesterolemia IBS (irritable bowel syndrome) Hypothyroidism Presence of stent in coronary artery ( 08/08/12) Atherosclerotic heart disease of [place] coronary artery without angina pectoris Benign essential HTN Arteriosclerotic heart disease (ASHD) Home Medications ???Medication ???Instructions ???Recorded ???Last Taken ???Type atenolol 25 mg tablet 25 mg PO DAILY 06/04/13 02/01/16 0 5:00 History clopidogrel 75 mg tablet 75 mg PO DAILY 06/04/13 08/19/24 H istory nitroglycerin 0.4 mg sublingual 0.4 mg sublingual Q5M PRN Chest Unknown History tablet Pain pantoprazole 40 mg tablet,delayed 20 mg PO BID 06/04/13 02/01/16 05 :00 History release bupropion HCl 100 mg tablet,12 hr 100 mg PO DAILY 06/28/18 Unknown History sustained-release (Wellbutrin SR) sertraline 100 mg tablet 100 mg PO DAILY 06/28/18 08/19/24 History levothyroxine 50 mcg tablet 50 mcg PO DAILY 06/10/19 Unknown H istory atorvastatin 80 mg tablet 80 mg PO QHS #30 tabs 12/16/1909/10 Rx amlodipine 10 mg tablet 10 mg PO DAILY 10/21/24 08/19/24 H istory quetiapine 100 mg tablet 100 mg PO QHS 10/21/24 08/19/24 Hi story sertraline 50 mg tablet 50 mg PO DAILY 10/21/24 08/19/24 H istory valacyclovir 500 mg tablet 500 mg PO DAILY 10/21/24 08/19/24 History Allergy/AdvReac Type Severity Reaction Status Date / Time codeine Allergy Severe Swelling Verified 10/21/24 13:54 propoxyphene HCl (From Allergy Severe Other Verified 10/21/24 13:54 Darvon) Penicillins AdvReac Intermediate Nausea/Vom/ Verified 10/21/24 13:54 Diarrhea Family History Brother CVA (cerebral vascular accident) Heart disease Cancer Surgical History History of appendectomy Presence of coronary angioplasty implant and graft ( 08/08/12) History of aorto-femoral bypass History of heart artery stent History of left knee surgery History of hysterectomy History of lumbar surgery History of hysterectomy PAD (peripheral artery disease) Social History Smoking Status: Former smoker alcohol intake: never sub (more content not included)... Normal [facility] MR/POSTOP.ANEon 10-22-2024 MR/POSTOP.[facility] Medical Records Department [address] [place] [address] Anesthesia Postop Eval I 10/22/24 1744 MR#: [id number] Acct: [id number] Name: ROBI OLIVARES Rep #: [id number] : 1950 73 From: Rom Randall MD PCP: Dr. Jose Hyde MD Status:ADM IN Y Race: C Location: [place] [address] Anesthesia: Postop Eval I Current Vital Signs Temperature: 96.9 F Pulse Rate: 76 Blood Pressure: 134/74 Respiratory Rate: 16 Pulse Ox: 98 Oxygen Delivery Method: Room Air Assessment Airway patent: Yes Spontaneous unlabored respirations: Yes Mental status: Awake nausea: No Vomiting: No Anesthesia Complication: No Fluid Hydration Crystalloid volume administer (ml): 300 Total IV fluid infused: 300 Progress Note Anesthesia document: Postop Eval 1 completed: Yes 10/22/24 1748 Date Rom Randall MD Cosigner Signature: Date CC: Signed Normal [facility] MR/[id number] 10-22-2024 [facility] Medical Records Department [address] [place] [address] Anesthesia Postop Eval II 10/22/24 1854 MR#: [id number] Acct: [id number] Name: ROBI OLIVARES Rep #: [id number] : 1950 73 From: Rom Randall MD PCP: Dr. Jose Hyde MD Status:ADM IN Y Race: C Location: [place] [address] Anesthesia Postop Eval I Sum Postop Eval Completion status Anesthesia document: Postop Eval 1 completed: Yes Anesthesia Postop Eval I Summary Anesthesia Postop Eval I Summary: Anesthesia Postop Eval I: Assessment Summary Airway patent Yes 10/22/24 17:48 Spontaneous unlabored Yes 10/22/24 17:48 respirations Mental status Awake 10/22/24 17:48 nausea No 10/22/24 17:48 Vomiting No 10/22/24 17:48 Anesthesia Postop Eval I: Fluid Summary Crystalloid volume administer 300 10/22/24 17:48 (ml) Colloids volume administered ( ml) Blood Product volume administered (ml) Total IV fluid infused 300 10/22/24 17:48 Anesthesia Postop Eval I: Summary Notes Anesthesia Complication No 10/22/24 17:48 Anesthesia Complication Comment: Post-operative progress note Anesthesia: Postop Eval II Evaluation Mental status: Awake and Calm Pain Level: 1 nausea: No Vomiting: No Complications Anesthesia Complication: No 10/22/24 1854 Date Rom Randall MD Cosigner Signature: Date CC: Signed Normal [facility] MRCP Abdomen without Contras ton 10-22-2024 MRCP Abdomen without Contrast [facility] Imaging Services [address] [place] [id number] MRCP Abdomen without Contrast MR#: [id number] Acct: [id number] Name: ROBI OLIVARES Rep #: [id number] : 1950 F 73 From: Arya Henao MD PCP: Dr. Jose Hyde MD Status: ADM IN Study: MRCP Abdomen without Contrast Date of Exam: Exam# [id number] Ordering Dr: Mango Cornejo DO PROCEDURE: MRCP ABDOMEN WITHOUT CONTRAST WITH MRCP, 10/22/2024 REASON FOR EXAM: ABNORMAL CT WITH N/V, DIARRHEA AND MELENA. TECHNIQUE: Multiplanar multisequence MRI abdomen was performed without IV contrast. MRCP was performed including generation of MIP reconstructions and 3D reformats. COMPARISON: 10/21/2024 FINDINGS: Variable overall moderate motion limitation. Some sequences are severely motion degraded. Note that the exam was optimized for evaluation of the gallbladder and biliary tree rather than the remaining abdominal viscera. Note also that sensitivity is limited in the absence of IV contrast. Liver: Grossly unremarkable. Gallbladder: Grossly unremarkable. Biliary tree: CBD mildly dilated to 10 mm tapering at the ampulla. No definite filling defect identified allowing for motion to suggest choledocholithiasis. Trace to mild central intrahepatic biliary dilatation also present. Pancreas grossly unremarkable. Other: Remaining abdominal viscera better evaluated on recent CT. MRI/MRCP Abdomen without Contrast IMPRESSION: 1. Motion limited noncontrast exam. 2. Redemonstrated mild biliary dilatation without definite filling defect identified allowing for motion to suggest choledocholithiasis. Findings could reflect ampullary stenosis or perhaps less likely an occult ampullary lesion, and would be optimally evaluated by ERCP. Correlate with serum bilirubin. 3. Additional description as above. Reading Location: [facility] CC: Dr. Mango Cornejo DO; Dr. Jose Hyde MD Surgical Technician: Signed Normal [facility] Magnetic resonance imaging r eportOrdered By: Arya Henao on 10-22-2024 Study report [facility] Imaging Services [address] [place], [place] [address] MRCP Abdomen without Contrast MR#: [id number] Acct: [id number] Name: ROBI OLIVARES Rep #: [id number] : 1950 F 73 From: Mela Henao MD PCP: Dr. Jose Hyde MD Status: AD M IN Study:MRCP Abdomen without Contrast Date of E xam: 10/22/24 Exam# [id number] Ordering Dr: Mango Cedillo DO PROCEDURE: MRCP ABDOMEN WITHOUT CONTRAST WITH MRCP, 10/22/2024 REASON FOR EXAM: ABNORMAL CT WITH N/V, DIARRHEA AND MELENA. TECHNIQUE: Multiplanar multisequence MRI abdomen was performed without IV contrast. MRCP was performed including generation of MIP reconstructions and 3D reformats. COMPARISON: 10/21/2024 FINDINGS: Variable overall moderate motion limitation. Some sequences are severely motiondegraded. Note that the exam was optimized for evaluation of the gallbladder and biliary tree rather than the remaining abdominal viscera. Note also that sensitivity is limited in the absence of IV contrast. Liver: Grossly unremarkable. Gallbladder: Grossly unremarkable. Biliary tree: CBD mildly dilated to 10 mm tapering at the ampulla. No definite filling defect identified allowing for motion to suggest choledocholithiasis. Trace to mild central intrahepatic biliary dilatation also present. Pancreas grossly unremarkable. Other: Remaining abdominal viscera better evaluated on recent CT. MRI/MRCP Abdomen without Contrast IMPRESSION: 1. Motion limited noncontrast exam. 2. Redemonstrated mild biliary dilatation without definite filling defect identified allowing for motion to suggest choledocholithiasis. Findings could reflect ampullary stenosis or perhaps less likely an occult ampullary lesion, and would be optimally evaluated by ERCP. Correlate with serum bilirubin. 3. Additional description as above. Reading Location: [id number] CC: Dr. Mango Cornejo DO; Dr. Jose Hyde MD ~ Surgical Technician: Signed [facility] Phosphoruson 10-22-2024 Phosphate [Mass/Vol] 1.3 mg/dL Invalid Interpretation Code 2.7-4.5 [facility] Comment on above: Performed By: #### L 499.0043 #### [facility] [address] [facility] [place], [address] Screening total cholesterol/ high density lipoprotein (HDL) cholesterol ratioOrdered By: Mango Gale on 10-22-2024 Cholesterol.total/Chol esterol in HDL [Mass ratio] 3.45 {ratio} [facility] Serum DNA double strand anti body assay (units/volume)Ordered By: Heber Borrego on 10-22-2024 DNA double strand Ab Qn (S) [IU]/mL 0-9 [facility] Comment on above: Negative <5 Equivoca l 5 - 9 Positive >9 Serum Scl-70 antibody assay (units/volume)Ordered By: Heber Borrego on 10-22-2024 SCL-70 extractable nuclear Ab Qn (S) <0.2 AI 0.0-0.9 [facility] Comment on above: Previous reported re sult: TNP AIEdited by: PRABHAKAR on 10/24/24:0908 AMENDED REPORT 10/24/24 0908 ANTISCLER previously reported as: Test not performed Serum or plasma albumin/glob ulin mass ratioOrdered By: Mango Gale on 10-22-2024 Albumin/Globulin [Mass ratio] 1.2 {ratio} 0.9-2.4 [facility] Serum or plasma cholesterol in HDL measurement (mass/volume)Ordered By: Mango Gale on 10-22-2024 Cholesterol in HDL [Mass/Vol] 44 mg/dL >40 [facility] Comment on above: National Cholesterol Education Program (NCEP) guidelines:<40 mg/dL: Low HDL-cholesterol (major risk factor for CHD)>= 60 mg/dL: High HDL-cholesterol (negative risk factor for CHD)HDL-cholesterol is affected by a number of factors, e.g. smoking, exercise, hormones, sex and age. Serum or plasma cholesterol measurement (mass/volume)Ordered By: Mango Gale on 10-22-2024 Cholesterol [Mass/Vol] 153 mg/dL <201 [facility] Comment on above: Cholesterol level, D esirable <200 mg/dLBorderline high cholesterol 200-239 mg/dLHigh cholesterol >=240 mg/dLRecommendations of the NCEP Adult Treatment Panel for the following risk-cutoff thresholds for the [place] population. Special Stain Group IIon Special Stain Group II --------- Patient Age/Sex Location Account Attending Physician ROBI OLIVARES 73/F [facility] [id number] Dr. Monico Patterson MD Specimen: [id number] Received: 10/22/24 Status: LORI Flores Num: [id number] Spec Type: Fluid Subm Dr: Heber Borrego, HEADER OPERATION: ERCP with pancreatic stent, brushings, balloon sweep PRE-OP DIAGNOSIS: Abdominal pain, vomiting, diarrhea, colitis, melena TISSUE SUBMITTED: A- Distal common bile duct brush tip fluid for cytology DIAGNOSIS CYTOLOGY A. Distal common bile duct brushing: * No malignant cells are identified CYTOLOGY STUDY Slides are reviewed. CYTOLOGY GROSS A. Received is 1 brush with 0.2 ml of yellow fluid and particles and 4 smears labeled with the patient's name and and designated per the requisition as Distal common bile duct brush tip. Submitted for cytology and cell block preparation. 10/23/2024 CPT: 37491 Signed (signature on file) Dr. Janice Hannah DO 10/24/24 1315 Normal [facility] Comment on above: Performed By: #### L 499.0043 #### [facility] [address] [place], [place], [address] TSH DL <= 0.005 mIU/L QnOrde red By: Mango Gale on 10-22-2024 TSH Qn 2.670 uIU/mL 0.300-4.20 0 [facility] Thyroid Stim Hormone (TSH)on 10-22-2024 TSH 2.670 uIU/mL Normal 0.300-4.20 0 [facility] Comment on above: Performed By: #### L 499.0043 #### [facility] [address] [place], [place], [id number] Triglycerides measurementOrd ered By: Mango Gale on 10-22-2024 Triglyceride [Mass/Vol] 86 mg/dL <199 [facility] Comment on above: The drugs N-Acetylcy steine and Metamizole may falsely depress this assay. Normal range: <150 mg/dLBorderline High: 150-199 mg/dLHigh: 200-499 mg/dLVery High: >500 mg/dL Troponin T.cardiac [Mass/vol ume] in Serum or Plasma by High sensitivity methodOrdered By: Mango Gale on 10-22-2024 Troponin T.cardiac High sensitivity method [Mass/Vol] 21 ng/L High <14 [facility] Troponin T.cardiac High sensitivity method [Mass/Vol] 25 ng/L High <14 [facility] 12 Lead EKGon 10-21-2024 12 Lead EKG [facility] Cardiovascular Services [address] [place] [address] 12 Lead EKG 10/21/24 1440 MR#: [id number] Acct: [id number] Name: ROBI OLIVARES Rep #: [id number] : 1950 73 From: Steven Aguilar MD Attending Dr: Dr. Monico Patterson MD Status: DIS IN Ordering Dr: Jonas Samuels MD Date: 10/21/24 Location: [facility] Sex: F C Admitted: 10/21/24 Test Reason : Blood Pressure : */* mmHG Vent. Rate : 72 BPM Atrial Rate : 72 BPM P-R Int : 166 ms QRS Dur : 84 ms QT Int : 438 ms P-R-T Axes : 1 -19 57 degrees QTcB Int : 479 ms Normal sinus rhythm Minimal voltage criteria for LVH, may be normal variant ( Arnaldo product ) Septal infarct , age undetermined Inferior infarct (cited on or before 15-Aug-2013) Abnormal ECG Confirmed by Steven Aguilar ([id number]), commissioning editor SEDRICK FRANCO ([id number]) on 10/25/2024 11:53:25 AM Referred By: Mango Cornejo Confirmed By: Steven Aguilar 10/25/24 1153 Date Steven Aguilar MD CC: Dr. Mango Cornejo DO; Dr. Jonas Samuels MD; Dr. Jose Hyde MD; Dr. Monico Patterson MD Signed Normal [facility] Abdomen/Pelvis W IV Cont ONL Yon 10-21-2024 Abdomen/Pelvis W IV Cont ONLY [facility] Imaging Services [address] [place], [place] [id number] Abdomen/Pelvis W IV Cont ONLY MR#: [id number] Acct: [id number] Name: ROBI OLIVARES Rep #: [id number] : 1950 F 73 From: Arya Henao MD PCP: Dr. Jose Hyde MD Status: ADM IN Study: Abdomen/Pelvis W IV Cont ONLY Date of Exam: Exam# [id number] Ordering Dr: Jonas Samuels MD ADDENDUM by Dr. Arya Henao MD on 10/22/24 at 1052 Note that described in the body of the report but omitted from the impression in error is minimal ground-glass in the RIGHT middle lobe which could reflect trace focal atypical pneumonia/pneumonitis. There is a 4 mm subpleural nodule in the region, statistically benign and requiring no specific follow-up in a low risk patient. Otherwise, recommend follow-up CT chest in one year per the Fleischner society recommendations for pulmonary nodule follow-up, presuming no history of malignancy or known immunosuppression. END OF ADDENDUM Reading Location: [id number] 10/22/24 1052 Date cc: Dr. Jonas Samuels MD; Dr. Jose Hyde MD * Signed PROCEDURE: ABDOMEN/PELVIS W IV CONT ONLY, 10/21/2024 REASON FOR EXAM: LOWER ABD PAIN AND WEIGHT LOSS TECHNIQUE: CT abdomen and pelvis was performed with IV contrast. Multiplanar reformats were generated. IV contrast: Isovue-300 VOLUME: 79mL Oral contrast: RADIATION DOSE SUMMARY: CTDlvol: 9.97+ 4.53 mGy DLP: 206.39 mGycm One or more dose reduction techniques were used (e.g., Automated exposure control, adjustment of the mA and/or kV according to patient size, use of iterative reconstruction technique). COMPARISON: None FINDINGS: Exam limited by considerable streak artifact related to lumbar spinal fusion hardware. Lung bases: Aortic annular calcification. Coronary atherosclerosis and/or stents. Chronic granulomatous disease. Minimal atelectasis/scarring. Mild focal ground-glass within the subpleural RIGHT middle lobe. 4 mm irregular nodule in the region (series 2, image 13). Liver: Likely focal steatosis along the anterior falciform, normal variant.. Spleen: Granuloma.. Gallbladder: Physiologically distended gallbladder. Mildly dilated CBD to 9 mm without calcified stone or other visible obstructing process.. Pancreas: Atrophic. Adrenals: Unremarkable. Kidneys: Tiny hypodensities too small to characterize likely cysts.. No hydronephrosis or definite ureteral calculus noting that tracing the ureters is difficult. Renal vascular calcifications and/or punctate nonobstructing intrarenal calculi. Bowel: Nonspecific gas distended but technically nondilated small bowel loops up to 2.5 cm. No convincing inflammation allowing for limitations. Rectosigmoid colonic wall thickening versus underdistention. Wall thickening versus underdistention of the cecum. Appendix not identified. No definite inflammation in the region. Lymph nodes: Unremarkable. Vasculature: Severe diffuse atherosclerosis. Bilateral common iliac stents suspect stenoses at the origins of the SMA, celiac, bilateral renal arteries, and KILEY, incompletely evaluated. Peritoneum: Unremarkable. Bladder: Small portion of the RIGHT posterolateral bladder extends into what appears to reflect a defect in the RIGHT pelvic floor, levator musculature. Reproductive Organs: Hysterectomy. Body Wall: Surgical clips in the inguinal regions.. Bones: Multilevel spondylosis. Demineralization. Lumbar spinal fusion. Thoracolumbar levoscoliosis.. CT/Abdomen/Pelvis W IV Cont ONLY IMPRESSION: 1. Limited exam as above. 2. Mild wall thickening versus underdistention involving the rectosigmoid colon and cecum. Correlate for mild colitis and recommend clinical follow-up to ensure resolution and no underlying lesion. No definite adjacent inflammation to confirm colitis. 3. Mildly dilated CBD to 9 mm without calcified stone or other visible obstructing process. Correlate with serum bilirubin and consider MRCP as indicated. 4. Appendix not identified. No definite inflammation in the region. 5. Additional description as above. Reading Location: [id number] CC: Dr. Jonas Samuels MD; Dr. Jose Hyde MD Surgical Technician: Signed Normal [facility] Amylaseon 10-21-2024 EDENILSON 26 U/L Low 28-100 [facility] Comment on above: Performed By: #### L 501.2300, L506.1001 #### [facility] [address] [place], [address] Bilirubin Test strip Ql (U)O rdered By: Jonas Samuels on 10-21-2024 Bilirubin Ql (U) Negative Negative [facility] CBC W/Diff, Automatedon 05-0 Absolute Lymph 1.95 X10 3/uL Normal 0.83-4.51 [facility] Comment on above: Performed By: #### L 501.2300, L506.1001 #### [facility] [address] [place], [address] Absolute Neut 4.0 X10 3/uL Normal 2.0-7.7 [facility] Comment on above: Performed By: #### L 501.2300, L506.1001 #### [facility] [address] [place], [address] Basophils/100 WBC (Bld) 0.3 % Normal 0-1 [facility] Comment on above: Performed By: #### L 501.2300, L506.1001 #### [facility] [address] [place], [address] Eosinophils/100 WBC (Bld) 1.0 % Normal 0-5 [facility] Comment on above: Performed By: #### L 501.2300, L506.1001 #### [facility] [address] [place], [address] Erythrocyte distribution width (RBC) [Ratio] 14.0 % Normal 11.6-14.6 [facility] Comment on above: Performed By: #### L 501.2300, L506.1001 #### [facility] [address] [place], [address] Hematocrit (Bld) [Volume fraction] 43.9 % Normal 37-47 [facility] Comment on above: Performed By: #### L 501.2300, L506.1001 #### [facility] [address] [place], [address] Hemoglobin (Bld) [Mass/Vol] 16.1 g/dL High 12.0-15.0 [facility] Comment on above: Performed By: #### L 501.2300, L506.1001 #### [facility] [address] [place], [address] IG% 0.400 Normal 0.0-0.9 [facility] Comment on above: Result Comment: IG% - Immature Granulocytes (promyelocytes, myelocytes and metamyelocytes) > 1% indicates that a LEFT SHIFT is Present. Performed By: #### L 501.2300, L506.1001 #### [facility] [address] [place], [address] Lymphocytes/100 WBC (Bld) 28.3 % Normal 19-41 [facility] Comment on above: Performed By: #### L 501.2300, L506.1001 #### [facility] [address] [place], [address] MCH (RBC) [Entitic mass] 32.5 pg High 27.0-32.0 [facility] Comment on above: Performed By: #### L 501.2300, L506.1001 #### [facility] [address] [place], [address] MCHC (RBC) [Mass/Vol] 36.7 g/dL High 32-36 [facility] Comment on above: Performed By: #### L 501.2300, L506.1001 #### [facility] [address] [place], [address] MCV (RBC) [Entitic vol] 88.7 fL Normal 81-99 [facility] Comment on above: Performed By: #### L 501.2300, L506.1001 #### [facility] [address] [place], [address] Monocytes/100 WBC (Bld) 12.0 % High 0-10 [facility] Comment on above: Performed By: #### L 501.2300, L506.1001 #### [facility] [address] [place], [address] Neutrophils/100 WBC (Bld) 58.0 % Normal 47-70 [facility] Comment on above: Performed By: #### L 501.2300, L506.1001 #### [facility] [address] [place], [address] Nucleated RBC (Bld) [#/Vol] 0 10*3/uL Normal 0-5 [facility] Comment on above: Performed By: #### L 501.2300, L506.1001 #### [facility] [address] [place], [address] Platelet mean volume (Bld) [Entitic vol] 11.6 fL Normal 6.2-12.0 [facility] Comment on above: Performed By: #### L 501.2300, L506.1001 #### [facility] [address], [address] Platelets (Bld) [#/Vol] 198 10*3/uL Normal 150-450 [facility] Comment on above: Performed By: #### L 501.2300, L506.1001 #### [facility] [address] [place], [address] RBC (Bld) [#/Vol] 4.95 10*6/uL Normal 4.2-5.4 [facility] Comment on above: Performed By: #### L 501.2300, L506.1001 #### [facility] [address] [place], [address] RDW SD 44.8 fl High 35.1-43.9 [facility] Comment on above: Performed By: #### L 501.2300, L506.1001 #### [facility] [address] [place], [address] WBC (Bld) [#/Vol] 6.9 10*3/uL Normal 4.4-11.0 [facility] Comment on above: Performed By: #### L 501.2300, L506.1001 #### [facility] [address] [place], [address] Chest PA and Lateralon 10-21 Chest PA and Lateral [facility] [address] [place] [address] Chest PA and Lateral MR#: [id number] Acct: [id number] Name: ROBI OLIVARES Rep #: [id number] : 1950 F 73 From: Brynn Sheth PCP: Dr. Jose Hyde MD Status: [facility] ER Study: Chest PA and Lateral Date of Exam: 10/21/24 Exam# [id number] Ordering Dr: Jonas Samuels MD PROCEDURE: CHEST PA AND LATERAL 10/21/2024 REASON FOR EXAM: WEIGHT LOSS TECHNIQUE: Frontal and lateral views of the chest. COMPARISON: Chest x-ray study dated 04/07/2024 FINDINGS: Hardware: Radiopaque hardware is projected over the lumbar spine. The radiopaque hardware is not entirely included on this study. Surgical clips are projected in this location. Heart: Heart size and configuration are within normal limits. Mediastinum: Pulmonary vasculature and hilar structures are unremarkable. Trachea is midline. Arteriosclerotic vascular disease of the aorta is noted. Lungs: Calcific nodular densities are projected over the left cardiac border and are similar when compared to the prior study. There is no atelectasis, consolidation, effusion or pneumonic infiltrate. The lungs are hyperinflated with slight flattening of the hemidiaphragms. There are central lucency identified in the upper lung valentin. These findings are compatible with emphysematous changes. Bones: Diffuse osteopenia of the bony thorax is seen. There appears to be a dextroscoliosis of the thoracic spine. RAD/Chest PA and Lateral IMPRESSION: No acute cardiopulmonary process is identified radiographically. Emphysematous changes. Arteriosclerotic vascular disease of the aorta. Diffuse osteopenia of the bony thorax. Reading Location: [facility] CC: Dr. Jonas Samuels MD; Dr. Jose Hyde MD Surgical Technician: Signed Normal [facility] Comprehensive Metabolic Prof ilon 10-21-2024 Albumin [Mass/Vol] 4.0 g/dL Normal 3.4-4.8 [facility] Comment on above: Performed By: #### L 501.2300, L506.1001 #### [facility] [address] [place], [address] Albumin/Globulin [Mass ratio] 1.2 {ratio} Normal 0.9-2.4 [facility] Comment on above: Performed By: #### L 501.2300, L506.1001 #### [facility] [address] [place], [address] ALK PHOS 75 U/L Normal 35-104 [facility] Comment on above: Performed By: #### L 501.2300, L506.1001 #### [facility] [address] [place], [address] ALT [Catalytic activity/Vol] 48 U/L High <=34 [facility] Comment on above: Performed By: #### L 501.2300, L506.1001 #### [facility] [address] [place], [address] AST [Catalytic activity/Vol] 40 U/L High <=31 [facility] Comment on above: Performed By: #### L 501.2300, L506.1001 #### [facility] [address] [place], [address] Bilirubin [Mass/Vol] 0.45 mg/dL Normal 0.00-1.30 [facility] Comment on above: Performed By: #### L 501.2300, L506.1001 #### [facility] [address] [place], [address] BUN/CRE 13.3 RATIO Normal 10-20 [facility] Comment on above: Performed By: #### L 501.2300, L506.1001 #### [facility] [address] [place], [address] Calcium [Mass/Vol] 11.4 mg/dL High 7.6-11.0 [facility] Comment on above: Performed By: #### L 501.2300, L506.1001 #### [facility] [address] [place], [address] Chloride [Moles/Vol] 89 mmol/L Low 98-108 [facility] Comment on above: Performed By: #### L 501.2300, L506.1001 #### [facility] [address] [place], [address] CO2 [Moles/Vol] 19.9 mmol/L Low 21.0-32.0 [facility] Comment on above: Performed By: #### L 501.2300, L506.1001 #### [facility] [address] [place], [address] Creatinine [Mass/Vol] 0.81 mg/dL Normal 0.70-1.20 [facility] Comment on above: Performed By: #### L 501.2300, L506.1001 #### [facility] [address] [place], [address] ECRCL 38.09 ml/min Low 50-250 [facility] Comment on above: Performed By: #### L 501.2300, L506.1001 #### [facility] [address] [place], [address] GAP 24 High 5-15 [facility] Comment on above: Performed By: #### L 501.2300, L506.1001 #### [facility] [address] [place], [address] GFR/1.73 sq M.predicted among non-blacks MDRD (S/P/Bld) [Vol rate/Area] 77 mL/min/{1.73_m2} Normal >60 [facility] Comment on above: Result Comment: mL/m in/1.73m2 CKD-EPI Creatinine Equation (2020) Performed By: #### L 501.2300, L506.1001 #### [facility] [address] [place], [address] Globulin (S) [Mass/Vol] 3.3 g/dL Normal 2.2-4.2 [facility] Comment on above: Performed By: #### L 501.2300, L506.1001 #### [facility] [address] [place], [address] Glucose [Mass/Vol] 95 mg/dL Normal 70-99 [facility] Comment on above: Performed By: #### L 501.2300, L506.1001 #### [facility] [address] [place], [address] Potassium [Moles/Vol] 2.2 mmol/L Invalid Interpretation Code 3.3-5.1 [facility] Comment on above: Result Comment: Crit ical Result(s) Called ZULEYMA at: 1520 by: GARTH??Results read back by same. Performed By: #### L 501.2300, L506.1001 #### [facility] [address] [place], [address] Sodium [Moles/Vol] 134 mmol/L Normal 133-145 [facility] Comment on above: Performed By: #### L 501.2300, L506.1001 #### [facility] [address] [place], [address] T PROT 7.3 g/dL Normal 5.9-8.4 [facility] Comment on above: Performed By: #### L 501.2300, L506.1001 #### [facility] [address] [place], [address] Urea nitrogen [Mass/Vol] 11 mg/dL Normal 4-19 [facility] Comment on above: Performed By: #### L 501.2300, L506.1001 #### [facility] [address] [place], [address] Emergency Department Summary on 10-21-2024 Emergency Department Summary [facility] Medical Records Department [address] [address] Emergency Department Summary 10/21/24 MR#: [id number] Acct: [id number] Name: ROBI OLIVARES Rep #: [id number] : 1950 73 From: Jonas Samuels MD PCP: Dr. Jose Hyde MD Status:REG ER Location: ED HPI HPI - GI History of Present Illness Chief Complaint: GI Bleed Informant: patient Abdominal Pain/Flank Pain Onset: Weeks Context: Gradual Onset Timing: Continuous Location: - (Bilateral lower quadrants.) Current Severity: Mild Maximum Severity: Mild Worsened by: Food Relieved by: Nothing Nausea/Vomiting/Emesis GI Symptom: Positive for Nausea and Vomiting Onset: Weeks Severity: Mild Diarrhea/Melena/Hematochez ia GI Symptom: Positive for Diarrhea and Melena Onset: Weeks Stool Quality: Positive for Watery Severity: Moderate Associated Symptoms Associated Symptoms: Negative for Dysuria, Frequency, Hematuria or Urgency Narrative Narrative: 73-year-old female history of CAD with stent on Plavix. Hypothyroidism and states she was taken off her medication. Prior MN. Prior hysterectomy with BSO and appendectomy. Quit smoking 2 months ago. Said that she initially told triage she did not but felt well for 2 weeks believes it may have been a month now. She denies any dysuria. Some never she eats she gets abdominal pain and has nausea and vomiting. She has been having left 5-10 episodes of diarrhea a day. Has had at least a 20 pound weight. But she is also been off her thyroid medication. She denies any fever. Prior similar symptoms: No Recent Illness/Hospitalization: No PFSH PFS Medical History (Updated 10/21/24 @ 18:[address] Jonas Samuels MD) Atherosclerotic heart disease of [place] coronary artery without angina pectoris Pure hypercholesterolemia IBS (irritable bowel syndrome) Hypothyroidism Presence of stent in coronary artery ( 08/08/12) Atherosclerotic heart disease of [place] coronary artery without angina pectoris Benign essential HTN Arteriosclerotic heart disease (ASHD) Home Medications ???Medication ???Instructions ???Recorded ???Last Taken ???Type atenolol 25 mg tablet 25 mg PO DAILY 06/04/13 02/01/16 0 5:00 History clopidogrel 75 mg tablet 75 mg PO DAILY 06/04/1308/19/25 H istory nitroglycerin 0.4 mg sublingual 0.4 mg sublingual Q5M PRN Chest Unknown History tablet Pain pantoprazole 40 mg tablet,delayed 20 mg PO BID 06/04/13 02/01/16 05 :00 History release bupropion HCl 100 mg tablet,12 hr 100 mg PO DAILY 06/28/18 Unknown History sustained-release (Wellbutrin SR) sertraline 100 mg tablet 100 mg PO DAILY 06/28/18 08/19/24 History levothyroxine 50 mcg tablet 50 mcg PO DAILY 06/10/19 Unknown H istory atorvastatin 80 mg tablet 80 mg PO QHS #30 tabs 12/16/1909/10 Rx amlodipine 10 mg tablet 10 mg PO DAILY 10/21/24 08/19/24 H istory quetiapine 100 mg tablet 100 mg PO QHS 10/21/24 08/19/24 Hi story sertraline 50 mg tablet 50 mg PO DAILY 10/21/24 08/19/24 H istory valacyclovir 500 mg tablet 500 mg PO DAILY 10/21/24 08/19/24 History Allergy/AdvReac Type Severity Reaction Status Date / Time codeine Allergy Severe Swelling Verified 10/21/24 13:54 propoxyphene HCl (From Allergy Severe Other Verified 10/21/24 13:54 Darvon) Penicillins AdvReac Intermediate Nausea/Vom/ Verified 10/21/24 13:54 Diarrhea Family History Brother CVA (cerebral vascular accident) Heart disease Cancer Surgical History Presence of coronary angioplasty implant and graft ( 08/08/12) History of aorto-femoral bypass History of heart artery stent History of left knee surgery History of hysterectomy History of lumbar surgery History of hysterectomy PAD (peripheral artery disease) Social History Smoking Status: Former smoker alcohol intake: never substance use type: does not use ROS ROS ED ROS Narrative Lower abdominal pain. Weight loss. Nausea vomiting diarrhea. Melena. Constitutional Constitutional ED: Denies chills or fever(s) ENT ENT ED: Denies ear pain Cardiovascular Cardiovascular: Denies chest pain Respiratory/Chest Respiratory/Chest: Denies cough or dyspnea Gastrointestinal Gastrointestinal: Reports diarrhea, melena, nausea and vomiting; Denies constipation Genitourinary Genitourinary ED: Denies dysuria or hematuria Musculoskeletal Musculoskeletal: Denies arthralgias Integumentary Denies abscess Neurologic Neurologic: Denies headache(s) Psychiatric Psychiatric: Denies anxiety or depression Endocrine Endocrinology: Denies polydipsia or polyphagia Hematologic/Lymphatic Hematologic/Lymphatic: Denies easy bleed (more content not included)... Normal [facility] H AND P Exam - Hospitaliston 10-21-2024 H&P Exam - Hospitalist [facility] Medical Records Department [address] [place] [address] H P Exam - Hospitalist 10/21/24 1812 MR#: [id number] Acct: [id number] Name: ROBI OLIVARES Rep #: [id number] : 1950 73 From: Mango Cornejo DO PCP: Dr. Jose Hyde MD Status:ADM IN [facility] - General General Date of Admission: 10/21/24 Date of Service: 10/21/24 Chief Complaint: Nausea, Vomiting, Abdominal Pain, Diarrhea and Melena. HPI Narrative ROBI OLIVARES, is a 73 F with a past medical history of essential hypertension; on amlodipine and atenolol, hyperlipidemia; on atorvastatin, hypothyroidism; on levothyroxine (recently taken off), former tobacco abuse (quit 2 months ago), CAD; s/p MN with subsequent stent (2012) on prn SL NTG,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 [facility] Comment on above: Order Comment: Moreno savage Type: BLOOD SPECIMENOrdering Facility: [facility] Address: [address] [place] [address] Result Comment: <100 mg/dL, Optimal 100-129 mg/dL, Near optimal/above optimal 130-159 mg/dL, Borderline high 160-189 mg/dL, High >189 mg/dL, Very high Secondary prevention optimal LDL Cholesterol levels are recommended to be < 70 mg/dL Performed By: #### 2 4331-1 ####[facility]ORYCLIA [id number] [address] [id number] [place] [address] Cholesterol in LDL/Cholesterol in HDL [Mass ratio] 1.35 {ratio} Normal <2.54 [facility] Comment on above: Order Comment: Moreno savage Type: BLOOD SPECIMENOrdering Facility: [facility] Address: [address] [place] [address] Result Comment: Cherry francis: 1. National Cholesterol Education Program ATP III Guideline At-A-Glance Quick Desk Reference: National Heart, Lung, and Blood [place]. National Institutes of Health. 2001: NIH Publication No. 01-3305. 2. An International Atherosclerosis Society position paper: global recommendations for the management of dyslipidemia: executive summary, Atherosclerosis. 2014: 232(2):410-413. Performed By: #### 2 4331-1 ####[facility]ORYCLIA [id number] [address] [id number] [place] [address] [facility] Cholesterol in VLDL [Mass/Vol] 15 mg/dL Normal <30 [facility] Comment on above: Order Comment: Speci men Type: BLOOD SPECIMENOrdering Facility: [facility] Address: [address] [place] [address] Performed By: #### 2 4331-1 ####[facility]ORATORYCLIA [id number] [address] [id number] [place] [address] [facility] Cholesterol non HDL [Mass/Vol] 84 mg/dL Normal <130 [facility] Comment on above: Order Comment: Moreno savage Type: BLOOD SPECIMENOrdering Facility: [facility] Address: [address] [place] [address] Result Comment: <130 mg/dL, Optimal 130-159 mg/dL, Near optimal/above optimal 160-189 mg/dL, Borderline high 190-219 mg/dL, High >219 mg/dL, Very high Secondary prevention optimal non HDL Cholesterol levels are recommended to be <100 mg/dL Performed By: #### 2 4331-1 ####[facility]ORYCLIA [id number] [address] [id number] [place] [address] [place] Cholesterol.total/Chol esterol in HDL [Mass ratio] 2.65 {ratio} Normal <5.10 [facility] Comment on above: Order Comment: Speci men Type: BLOOD SPECIMENOrdering Facility: [facility] Address: [address] [place] [address] Performed By: #### 2 4331-1 ####[facility]ORYCLIA [id number] [address] [id number] [place] [address] [place] FASTING TIME 10 hrs Normal [facility] Comment on above: Order Comment: Speci men Type: BLOOD SPECIMENOrdering Facility: [facility] Address: [address] [place] [address] Result Comment: had a coffee with cream and sugar around 9:30am but claims to have not eaten anything since 4pm yesterday Performed By: #### 2 4331-1 ####[facility]ORYCLIA [id number] [id number] [place] [address] [facility] Triglyceride [Mass/Vol] 74 mg/dL Normal <150 [facility] Comment on above: Order Comment: Speci men Type: BLOOD SPECIMENOrdering Facility: [facility] Address: [address] [place] [address] Result Comment: <150 mg/dL, Normal 150-199 mg/dL, Borderline high 200-499 mg/dL, High >499 mg/dL, Very high Performed By: #### 2 4331-1 ####[facility]ORYCLIA [id number] [address] [id number] [address] [place] Jatinder 08-07-2024 CNPN Telephone (INTMWS) -- ROBI OLIVARES ([id number]) 1950 F Date Time Provider Department 08/07/24 JOSE HYDE INTMWS During your visit today, we recorded the following information about you: Jessica Yung RN 08/07/2024 10:19 AM Signed Andre with [employer] calls to report that he is faxing over forms for PA for Medical Supplies but wouldn't say which supplies. Per previous encounter, Patient not wanting any forms filled out unless she notifies [facility]. Call placed to patient to verify that forms need to be disregarded. Left message for patient to return call. Jessica Yung RN Allergies As of Date: 08/07/2024 Noted Allergy Reaction CODEINE 10/11/2007 4 - Hives DARVON (PROPOXYPHENE HCL) 10/11/2007 4 - Hives MORPHINE 09/14/2017 14 - Other: See Comments Comments: Made tongue swell PENICILLINS 10/11/2007 10 - Anaphylaxis SIMVASTATIN 04/17/2012 14 - Other: See Comments Comments: elevated LFTS; had tolerated Lipitor for years without problem Date Reviewed: 06/05/2024 Reviewed by: Katrin Rubi MA - Fully Assessed Reason for Visit: Forms [913] Prescriptions as of 08/09/2024 - loperamide (IMODIUM) 2 mg cap(s) Take 2 at onset of loose stools, then 1 after each loose stool as needed up to 6 pills per day - benzonatate (TESSALON PERLE) 100 mg capsule Take 1 capsule by mouth three times a day as needed for cough. - clopidogrel (PLAVIX) 75 mg tablet Take 1 tablet by mouth once daily. - atorvastatin (LIPITOR) 80 mg tablet Take 1 tablet by mouth daily at bedtime. For cholesterol. - sertraline (ZOLOFT) 100 mg tablet Take 1 tablet by mouth once daily. - QUEtiapine (SEROQUEL) 100 mg tablet Take 1 tablet by mouth daily at bedtime. - sertraline (ZOLOFT) 50 mg tablet Take 1 tablet by mouth once daily. Take this in addition to 100 mg tablet for a total of 150 mg daily - levothyroxine (SYNTHROID) 25 mcg tablet Take 1 tablet by mouth daily before breakfast. - amLODIPine (NORVASC) 10 mg tablet Take [...] by mouth. Problem List As Of Date 08/07/2024 Noted Resolved Essential hypertension [I10] MIXED HYPERLIPIDEMIA [...] skin [L57.8] 05/05/2010 CAD (coronary artery disease), [place] coronary *10/14/2010 Coronary stent 10/14/2010 Carcinoma in [...] CHF (congestive heart failure*10/16/2023 Encounter Status:Closed by JESSICA YUNG on 08/09/24 Normal [facility] Brigitte 06-05-2024 CNOV Office Visit (KHRIS ) -- ROBI OLIVARES ([id number]) 1950 F Date Time Provider Department 06/05/24 8:30 AM MEHDI RICK During your visit today, we recorded the following information about you: Pulse Respiration Blood pressure Weight Normal [facility] Methylmalonate SerPl-sCncon 06-05-2024 Methylmalonate [Moles/Vol] 0.24 umol/L Normal <=0.40 [facility] Comment on above: Order Comment: Speci men Type: BLOOD SPECIMENOrdering Facility: [facility] Address: [address] [place] [address] Result Comment: This test was developed, and its performance characteristics determined by the [facility] Department of Pathology and Laboratory Medicine. It has not been cleared or approved by the FDA. The [facility] Department of Pathology and Laboratory Medicine is regulated under CLIA as qualified to perform high-complexity testing. This test is used for clinical purposes. It should not be regarded as investigational or for research. Performed By: #### 1 3964-2 ####[facility] LABCLIA [id number] [place] [address] [place] Vit B12 [facility] -18-2 024 Cobalamin (Vitamin B12) [Mass/Vol] 401 pg/mL Normal 232-1245 [facility] Comment on above: Order Comment: Speci men Type: BLOOD SPECIMENOrdering Facility: [facility] HOSP[facility] Address: [address] [place] [address] Performed By: #### 2 132-9 ####[facility] LABCLIA [id number] [address] [place] CNOVon 05-22-2024 CNOV Office Visit (WSTR ) -- ROBI OLIVARES ([id number]) 1950 F Date Time Provider Department 05/22/24 5:45 PM MARILYN ARECHIGA UCWSTR During your visit today, we recorded the following information about you: Temperature Pulse Respiration Blood pressure 97.6 degrees 70/minute 16/minute 102/70 Weight 43.8 kg Marilyn Arechiga PA-C 05/22/2024 6:33 PM Signed This note was created using NoteWriter. Subjective Robi Olivares is a 73 year old female. HPI Patient presents with cough and congestion for 1 week. Symptoms started last Monday. Her is positive for COVID as well. She denies chest pain or shortness of breath. She denies history of asthma or COPD. She has had fevers off and on. She took a COVID test yesterday which was positive. No diarrhea or vomiting. Denies ear pain. Review of Systems Constitutional: Positive for fever. HENT: Positive for congestion, rhinorrhea and sore throat. Respiratory: Positive for cough. Negative for shortness of breath and wheezing. Cardiovascular: Negative. Gastrointestinal: Negative. Genitourinary: Negative. Musculoskeletal: Positive for myalgias. Neurological: Positive for headaches. All other systems reviewed and are negative. PAST MEDICAL HISTORY Diagnosis Date Acute gastritis without mention of hemorrhage Acute myocardial infarction of other specified sites, episode of care unspecified Myocardial Infarction--DR WHITE Adenomatous colon polyp TA on Jun 2015 colonoscopy (Dr. 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 Davison Severe vulvar dysplasia Vitamin D Deficiency 08/20/2009 Current Outpatient Medications Medication Sig Dispense Refill clopidogrel (PLAVIX) 75 mg tablet Take 1 tablet by mouth once daily. 30 tablet 11 atorvastatin (LIPITOR) 80 mg tablet Take 1 tablet by mouth daily at bedtime. For cholesterol. 30 tablet 11 sertraline (ZOLOFT) 100 mg tablet Take 1 tablet by mouth once daily. 30 tablet 11 QUEtiapine (SEROQUEL) 100 mg tablet Take 1 tablet by mouth daily at bedtime. 30 tablet 11 sertraline (ZOLOFT) 50 mg tablet Take 1 tablet by mouth once daily. Take this in addition to 100 mg tablet for a total of 150 mg daily 90 tablet 3 levothyroxine (SYNTHROID) 25 mcg tablet Take 1 tablet by mouth daily before breakfast. 90 tablet 1 loperamide (IMODIUM) 2 mg cap(s) Take 2 at onset of loose stools, then 1 after each loose stool as needed up to 6 pills per day 100 capsule 2 amLODIPine (NORVASC) 10 mg tablet Take 1 tablet by mouth once daily. 90 tablet 3 valACYclovir (VALTREX) 500 mg tablet Take 1 tablet by mouth once daily. 90 tablet 3 nitroglycerin sublingual (NITROQUICK) 0.4 mg SL tablet Dissolve 1 tablet under the tongue as needed. DISSOLVE ON TONGUE FOR CHEST PAIN. IF NO PAIN RELIEF, CALL 911 25 tablet 3 cholecalciferol, vitamin D3, 100 mcg (4,000 unit) cap Take by mouth. benzonatate (TESSALON PERLE) 100 mg capsule Take 1 capsule by mouth three times a day as needed for cough. 30 capsule 0 No current facility-administered medications for this visit. PAST SURGICAL HISTORY Procedure Laterality Date COLONOSCOPY 09/06/02 Normal - [place] COLONOSCOPY FLX DX W/COLLJ SPEC WHEN PFRMD 06/24/15 Colonoscopy COLONOSCOPY FLX DX W/COLLJ SPEC WHEN PFRMD 03/14/2017 Colonoscopy COLONOSCOPY FLX DX W/COLLJ SPEC WHEN PFRMD 03/19/2020 Colonoscopy COLONOSCOPY W/BIOPSY SINGLE/MULTIPLE 04/20/10 DILATION AND CURETTAGE DXAND/THER NONOBSTETRIC 1972 Dilation AND curettage EGD 08/30/02 small hiatal hernia - [place] EGD TRANSORAL BIOPSY SINGLE/MULTIPLE 04/20/10 ESOPHAGOGASTRODUODENOSCOPY TRANSORAL [...] W/WO PATCH GRAFT COMMON FEMORAL 08-15-13 RIGHT [employer] TEAEC W/WO PATCH GRAFT ILIOFEMORAL Left 02-01-16 TOTAL ABDOMINAL HYSTERECT W/WO RMVL TUBE OVARY 1976 Hysterectomy, DOROTHY, BSO;Fibroids/infection VULVECTOMY SIMPLE PARTIAL 10/21/2010 Partial simple posteri (more content not included)... Normal [facility] Jatinder 05-22-2024 CNPN Telephone (INTMWS) -- ROBI OLIVARES ([id number]) 1950 F Date Time Provider Department 05/22/24 JOSE HYDE During your visit today, we recorded the following information about you: Delicia Diop LPN 05/22/2024 1:59 PM Signed Pt called in the let you know she tested positive for COVID and her symptoms have been going on for 2 days. Pt reports not feeling well. Pt requested medication. Pt instructed she needs to be evaluated with doing a virtual apt or come in to [facility]. Pt has never done a virtual apt. Pt coming in to [facility]. Pt instructed to wear a mask and agrees. Pt will also bring in her positive test. Delicia Diop LPN Allergies As of Date: 05/22/2024 Noted Allergy Reaction CODEINE 10/11/2007 4 - Hives DARVON (PROPOXYPHENE HCL) 10/11/2007 4 - Hives MORPHINE 09/14/2017 14 - Other: See Comments Comments: Made tongue swell PENICILLINS 10/11/2007 10 - Anaphylaxis SIMVASTATIN 04/17/2012 14 - Other: See Comments Comments: elevated LFTS; had tolerated Lipitor for years without problem Date Reviewed: 05/13/2024 Reviewed by: Mila Orellana MA - Fully Assessed Reason for Visit: Future Appointment [256] Prescriptions as of 05/22/2024 - clopidogrel (PLAVIX) 75 mg tablet Take 1 tablet by mouth once daily. - atorvastatin (LIPITOR) 80 mg tablet Take 1 tablet by mouth daily at bedtime. For cholesterol. - sertraline (ZOLOFT) 100 mg tablet Take 1 tablet by mouth once daily. - QUEtiapine (SEROQUEL) 100 mg tablet Take 1 tablet by mouth daily at bedtime. - sertraline (ZOLOFT) 50 mg tablet Take 1 tablet by mouth once daily. Take this in addition to 100 mg tablet for a total of 150 mg daily - levothyroxine (SYNTHROID) 25 mcg tablet Take 1 tablet by mouth daily before breakfast. - loperamide (IMODIUM) 2 mg cap(s) Take 2 at onset of loose stools, then 1 after each loose stool as needed up to 6 pills per day - amLODIPine (NORVASC) 10 mg tablet Take [...] by mouth. Problem List As Of Date 05/22/2024 Noted Resolved Essential hypertension [I10] MIXED HYPERLIPIDEMIA [...] skin [L57.8] 05/05/2010 CAD (coronary artery disease), [place] coronary *10/14/2010 Coronary stent 10/14/2010 Carcinoma in [...] CHF (congestive heart failure*10/16/2023 Encounter Status:Closed by DELICIA DIOP on 05/22/24 [facility] CNOVon 05-13-2024 CNOV Office Visit (INTMWS ) -- ROBI OLIVARES ([id number]) 1950 F Date Time Provider Department 05/13/24 10:00 AM JOSE HYDE INTMWS During your visit today, we recorded the following information about you: Pulse Respiration Blood pressure Weight 64/minute 16/minute 132/78 43.9 kg Jose Hyde MD 05/13/2024 11:50 AM Signed This note was created using NoteWriter. Subjective Robi Olivares is a 73 year old female. Patient presents with: ED Follow-up SUBJECTIVE: Robi Olivares is a 73 year old year old lady here today for ER follow up appointment for review of medical conditions. Robi Olivares is a 73-year-old female, with a history of depression and bipolar disorder, presenting with concerns about short-term memory issues. Robi was recently evaluated in the ED for blurred vision following an anxiety-inducing event. She was concerned about a potential CVA. ED evaluation included laboratory tests and a CT scan. Laboratory results revealed hypokalemia, though she was asymptomatic. 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 The ED team attributed the blurred vision to anxiety. Currently, Robi reports difficulties with short-term memory retention, though her long-term memory remains intact. She has a scheduled appointment with a neurologist on June 05 to address these cognitive concerns. Robi acknowledges suboptimal dietary habits, inadequate hydration, and a lack of regular physical activity. She has a treadmill at home but has not been using it. Additionally, she reports irregular sleep patterns without a consistent sleep schedule. PAST MEDICAL HISTORY Diagnosis Date Acute gastritis without mention of hemorrhage Acute myocardial infarction of other specified sites, episode of care unspecified Myocardial Infarction--DR WHITE Adenomatous colon polyp TA on Jun 2015 colonoscopy (Dr. 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 Davison Severe vulvar dysplasia Vitamin D Deficiency 08/20/2009 Current Outpatient Medications Medication Sig sertraline (ZOLOFT) 50 mg tablet Take 1 tablet by mouth once daily. Take this in addition to 100 mg tablet for a total of 150 mg daily levothyroxine (SYNTHROID) 25 mcg tablet Take 1 tablet by mouth daily before breakfast. loperamide (IMODIUM) 2 mg cap(s) Take 2 at onset of loose stools, then 1 after each loose stool as needed up to 6 pills per day QUEtiapine (SEROQUEL) 100 mg tablet Take 1 [...] this visit. Review of Systems Objective BP 132/78 Pulse 64 Resp 16 Wt 43.9 kg (96 lb 12.5 oz) SpO2 97% BMI 16.61 kg/m? Physical Exam Constitutional: Appearance: Normal appearance. HENT: Head: Normocephalic. Eyes: Conjunctiva/sclera: Conjunctivae normal. Cardiovascular: Rate and Rhythm: Normal rate and regular rhythm. Heart sounds: Normal heart sounds. Pulmonary: Effort: Pulmonary effort is normal. Breath sounds: Normal breath sounds. Skin: General: Skin is warm and dry. Neurological: General: No focal deficit present. Mental Status: She is alert and oriented to person, place, and time. Psychiatric: Attention and Perception: Attention and perception normal. Mood and Affect: Mood normal. Speech: Speech normal. Behavior: Behavior normal. Thought Content: Thought content normal. Judgment: Judgment normal. Hemoglobin A1C (%) Date Value 07/26/2022 5.6 01/31/2022 5.7 05/28/2021 5.7 02/20/2020 5.9 07/17/2019 5.7 12/11/2018 5.5 12/01/2017 5.5 Labs from [facility] reviewed. Also CT and CTA rev (more content not included)... Normal [facility] JG SCREENING W DHARMESHOon 05-13 JG SCREENING W HARJIT * * *Final Report* * * DATE OF EXAM: May 13 2024 2:38PM WRW [id number] - JG SCREENING W HARJIT / PROCEDURE REASON: Encounter for screening mammogram for breast cancer * * * * Physician Interpretation * * * * RESULT: [place] [address] [place] [id number] #[id number] - [facility] SCREENING W HARJIT HISTORY: Patient is 73 years old and is seen for screening and is asymptomatic in both breasts. The patient has a history of ovarian cancer at age 22. COMPARISON STUDIES: The present examination has been compared to prior imaging studies dated 02/21/2020 (mammogram), 02/26/2021 (mammogram), 04/13/2022 (mammogram) and 04/28/2023 (mammogram). MAMMOGRAM TECHNIQUE: The study was acquired using full field digital technology and interpreted from soft copy. Digital Breast Tomosynthesis (DBT) images were obtained and used to assist in the interpretation of this examination. Computer-aided detection was utilized by the radiologist in the interpretation of this examination. MAMMOGRAM FINDINGS: The breasts are almost entirely fatty. No suspicious masses, calcifications or other abnormalities are seen in either breast. There are no significant changes from the prior study. IMPRESSION: There are no suspicious mammographic findings in either breast. Routine screening mammogram is recommended. Annual mammogram will be due in 1 year. BI-RADS Category 1: Negative RISK: Based on the Tyrer-Cuzick (TC) risk assessment model, this patient has a 1.4% lifetime risk of developing breast cancer, meaning they are at average risk for developing breast cancer. However, this is only an estimate based on available history provided on the patient's questionnaire. We encourage all patients to talk with their providers about these results, further recommendations for managing breast health, and appropriate supplemental screening options if the patient has dense breast tissue. Interpreting Radiologist: Rena Gregorio M.D. Electronically signed on: 05/14/2024 Surgical Technician: KAMERON Transcribe Date/Time: May 13 2024 2:09P Dictated by: RENA GRGEORIO MD This examination was interpreted and the report reviewed and electronically signed by: RENA GREGORIO MD on May 14 2024 8:05AM EST [id number] Normal [facility] CNOVon 04-29-2024 CNOV Office Visit (INTMWS ) -- ROBI OLIVARES ([id number]) 1950 F Date Time Provider Department 04/29/24 7:00 AM VLAD PYLE During your visit today, we recorded the following information about you: Pulse Respiration Blood pressure Weight 81/minute 16/minute 135/74 44.6 kg Vlad Pyle APRN.WATCH ASSEMBLY INSPECTOR 04/29/2024 8:10 AM Signed SUBJECTIVE: DTaP,Tdap,Td Vaccine(2 - Td or Tdap) due on 11/14/2021 Influenza Vaccine(1) due on 02/18/2024 Covid-19 Vaccine( - season) due on 02/18/2024 Mammogram Screening due on 04/28/2024 HPI Robi Olivares is a 73 year old female. PMH significant for ACTIVE PROBLEM LIST Essential Hypertension Mixed Hyperlipidemia Bipolar Disorder, Unspecified ([facility]) Acquired Hypothyroidism Diverticulosis of Colon (Without Mention of [...] Actinic Damage//Sun-damaged skin Cad (Coronary Artery Disease), [place] Coronary Artery Coronary Stent Carcinoma in Situ, Vulva Severe Vulvar Dysplasia Elevated Lfts Fatty Infiltration of Liver Acne Scars Ibs (Irritable Bowel Syndrome) Pad (Peripheral Artery Disease) ([facility]) Sciatica Due to Displacement of Lumbar Intervertebral Disc Gerd (Gastroesophageal Reflux Disease) Mgus (Monoclonal Gammopathy of Unknown Significance) Iron Deficiency Anemia Scoliosis of Lumbar Spine S/P Lumbar Spinal Fusion Bilateral Carotid Artery Stenosis Chronic Diastolic Chf (Congestive Heart Failure) ([facility]) Presents today regarding memory and weight loss. She was seen at [facility] ER for confusion. Review of OSH ER notes indicate she had blurred vision and was very upset, fighting with . She was concerned she may have been having a stroke and nervous breakdown. She reported drinking alcohol today seen in ER, 3 drinks. No speech difficulties no weakness in extremities. CT brain showed No acute abnormality.Old right cerebellar infarct. Chronic microvascular ischemic disease. CXR negative. CTA head and neck showed: CT/CTA Head AND Neck W/ ContrastNo large vessel occlusion or significant intracranial vascular abnormality. Moderate atherosclerotic changes right carotid bulb without hemodynamically significant stenosis.Dense atherosclerotic changes left carotid bulb without hemodynamically significant stenosis.Moderate atherosclerotic changes right intracavernous internal carotid artery without hemodynamic significant stenosis. Moderate atherosclerotic changes left intracavernous internal carotid artery without hemodynamic significant stenosis.Small old right cerebellar hemisphere infarct peripherally. No changes made at this visit. She was last seen 06/[address] Irby for history of coronary artery disease remote coronary intervention most recently 1996 with PCI to the RCA and posterior ventricular branch. She has a history of peripheral artery disease with iliac stents, hypertension, dyslipidemia, chronic diastolic congestive heart failure, carotid artery disease, and ongoing smoking. Bradycardia noted, atenolol discontinued. She was last seen 09/2023 in by Romina Chao CNP. Today reports that she is noting decreased memory for about 6 months. Notes that she has forgotten that she is that the dogs are made a couple coffee and then diabetic and soon afterwards. Able to complete all ADLs and IADLs without difficulty. Notes under significant stress with screaming and yelling at her often. Notes that when she stays with her sister who is undergoing treatment for cancer she feels much improved. Much more peaceful at her house. Indicates she could move in with her but would not be able to bring her dogs She does not want to leave behind. Notes feeling very depressed. Not currently seeing a counselor. No voiced SI HI. Current smoker, contemplating quitting. Current EtOH use. HTN: Ms. Olivares indicates that she is without headache, chest pain, palpitations, dyspnea, peripheral edema, orthopnea, fatigue or PND. Last 14 Encounter BP Readings: Date: BP: 10/16/2023 130/70 07/17/2023 128/57 06/26/2023 126/70 05/01/2023 116/70 03/28/2023 116/66 08/22/2022 118/68 06/29/2022 128/74 02/07/2022 131/66 01/31/2022 138/72 12/06/2021 138/80 11/02/2021 130/90 10/05/2021 140/84 08/09/2021 150/80 12/17/2020 126/82 Hyperlipidemia. Ms. Olivares reports doing well on current therapy no adverse effects noted Her most rece (more content not included)... Normal [facility] CNPNon 04-29-2024 CNPN Telephone (4CQ) -- ROBI OLIVARES ([id number]) 1950 F Date Time Provider Department 04/29/24 JOSE HYDE 4CQ During your visit today, we recorded the following information about you: Cynthia Cordova 04/29/2024 8:18 AM Signed Pt stated she didn't want to travel to [facility] for the neuro test consult. Vlad Pyle APRN.WATCH ASSEMBLY INSPECTOR 04/29/2024 11:19 AM Signed Does she have to go to [place]? Order changed so she can go to closer to home. Lizzy Brown 04/30/2024 11:16 AM Signed This testing is only offered at [facility]. Vlad Pyle APRN.WATCH ASSEMBLY INSPECTOR 04/30/2024 4:51 PM Signed changed order, check to see if can be completed locally, thanks Lizzy Brown 05/01/2024 11:09 AM Signed I spoke with Neurology here in [place] and was advised this testing is long and is not offered at [facility] and only [place] and [facility]. Romina Chao APRN.BARREL RIBS SOLDERER 05/01/2024 1:42 PM Signed Please let Kaylie know that unfortunately the neuropsych testing can only be done in [place] or [facility]. MY suggestion would be for her to see geriatrics first and then go from there. Corinna Rodriguez LPN 05/01/2024 2:45 PM Signed PATIENT NOTIFIED OF SAME. Reluctant to travel to [place]. Will await appointment with Geriatrics for further testing. Allergies As of Date: 04/29/2024 Noted Allergy Reaction CODEINE 10/11/2007 4 - Hives DARVON (PROPOXYPHENE HCL) 10/11/2007 4 - Hives MORPHINE 09/14/2017 14 - Other: See Comments Comments: Made tongue swell PENICILLINS 10/11/2007 10 - Anaphylaxis SIMVASTATIN 04/17/2012 14 - Other: See Comments Comments: elevated LFTS; had tolerated Lipitor for years without problem Date Reviewed: 04/29/2024 Reviewed by: Vlad Pyle APRN.WATCH ASSEMBLY INSPECTOR - Fully Assessed Primary Visit Diagnosis:Memory problem [R41.3] Order(s):NEUROPSYCHOLOGICA L TESTING CONSULT [2334512] Order #: [id number]: 1 Prescriptions as of 05/01/2024 - sertraline (ZOLOFT) 50 mg tablet Take 1 tablet by mouth once daily. Take this in addition to 100 mg tablet for a total of 150 mg daily - levothyroxine (SYNTHROID) 25 mcg tablet Take 1 tablet by mouth daily before breakfast. - loperamide (IMODIUM) 2 mg cap(s) Take 2 at onset of loose stools, then 1 after each loose stool as needed up to 6 pills per day - QUEtiapine (SEROQUEL) 100 mg tablet Take [...] by mouth. Problem List As Of Date 04/29/2024 Noted Resolved Essential hypertension [I10] MIXED HYPERLIPIDEMIA [...] skin [L57.8] 05/05/2010 CAD (coronary artery disease), [place] coronary *10/14/2010 Coronary stent 10/14/2010 Carcinoma in [...] [I65.23] 07/16/2023 Chronic diastolic CHF (congestive heart failure*0 (more content not included)... Normal [facility] L501.4020on 04-08-2024 TROPONIN-I HS 4 pg/mL Normal 3.0-54.0 [facility] Comment on above: Order Comment: 'TROP ' Serial specimen #1, #2 or #3: 11 Result Comment: Plea se Note: New Test Units and Gender Specific Reference Ranges. For more information see Policy Stat Procedure [place] High Sensitivity Troponin (TNIH) and attachments. Performed By: #### L 500.3400, L100.0100 #### [facility] [address] [place], [address] Alcohol, Blood (Medical)-Ser umon 04-07-2024 SERUM ETOH < 3.0 Normal [facility] Comment on above: Result Comment: The serum:whole blood ethanol ratio is approximately 1.14 and varies slightly with hematocrit. Medical Alcohol reference interval and critical value in non-tolerant individuals; 50 - 100 Impairment 100 Intoxication 100 - 250 Severe Poisoning 250 - 400 Deep/possible fatal coma Performed By: #### L 500.3400, L100.0100 #### [facility] [address] [place], [address] Basic Metabolic Profile (BMP )on 04-07-2024 BUN/CRE 14.7 RATIO Normal 04-07 [facility] Comment on above: Performed By: #### L 500.3400, L100.0100 #### [facility] [address] [place], [address] CA,Total 9.6 mg/dL Normal 8.5-10.1 [facility] Comment on above: Performed By: #### L 500.3400, L100.0100 #### [facility] [address] [place], [address] Chloride [Moles/Vol] 108 mmol/L High 98-107 [facility] Comment on above: Performed By: #### L 500.3400, L100.0100 #### [facility] [address] [place], [address] CO2 [Moles/Vol] 26.0 mmol/L Normal 21.0-32.0 [facility] Comment on above: Performed By: #### L 500.3400, L100.0100 #### [facility] [address] [place], [address] Creatinine [Mass/Vol] 0.75 mg/dL Normal 0.55-1.02 [facility] Comment on above: Result Comment: The validity of the calculated GFR GFRAA in patients over 70 years has not been determined. Clinical correlation is essential. Performed By: #### L 500.3400, L100.0100 #### [facility] [address] [place], [address] EST GFR - AA 98 mL/min Normal >60 [facility] Comment on above: Result Comment: Afri can Filipino GFR Calc Performed By: #### L 500.3400, L100.0100 #### [facility] [address] [place], [address] GAP 6 Normal 5-15 [facility] Comment on above: Performed By: #### L 500.3400, L100.0100 #### [facility] [address] [place], [address] GFR/1.73 sq M.predicted among non-blacks MDRD (S/P/Bld) [Vol rate/Area] 81 mL/min/{1.73_m2} Normal >60 [facility] Comment on above: Result Comment: Non- GFR Calc Performed By: #### L 500.3400, L100.0100 #### [facility] [address] [place], [address] Glucose [Mass/Vol] 119 mg/dL High 74-106 [facility] Comment on above: Result Comment: Fast ing Glucose result from 100 to 125 mg/dL suggests IMPAIRED HOMEOSTASIS per A.D.A. criteria. Performed By: #### L 500.3400, L100.0100 #### [facility] [address] [place], [address] Potassium [Moles/Vol] 3.0 mmol/L Low 3.5-5.1 [facility] Comment on above: Performed By: #### L 500.3400, L100.0100 #### [facility] [address] [place], [address] Sodium [Moles/Vol] 140 mmol/L Normal 136-145 [facility] Comment on above: Performed By: #### L 500.3400, L100.0100 #### [facility] [address] [place], [place], [address] Urea nitrogen [Mass/Vol] 11 mg/dL Normal 7-18 [facility] Comment on above: Performed By: #### L 500.3400, L100.0100 #### [facility] [address] [place], [address] Bedside Glucoseon 04-07-2024 FINGERSTICK GLU 114 mg/dL High 74-106 [facility] Comment on above: Result Comment: JERONIMO PATELENT OF PATIENT CARE PER NURSING PROTOCOL Performed By: #### L 500.3400 #### [facility] [address] [place], [address] Brain/Head without Contrasto n 04-07-2024 Brain/Head without Contrast [facility] Imaging Services [address] [place] [address] Brain/Head without Contrast MR#: [id number] Acct: [id number] Name: ROBI OLIVARES Rep #: [id number] : 1950 F 73 From: Radha Suggs PCP: Dr. Jose Hyde MD Status: REG ER Study: Brain/Head without Contrast Date of Exam: 03/20 Exam# [id number] Ordering Dr: Markell Pino DO [id number] INDICATION: blurred vision EXAMINATION: CT BRAIN - CT Head or Brain W/O Contrast Injection TECHNIQUE: Multiple axial images were obtained of the head without intravenous contrast. The protocol utilizes one or more of the following dose reduction techniques: automated exposure control, adjustment of mA and/or kV according to patient size,and/or use of iterative reconstruction technique. IV Contrast dosage and agent: None. RADIATION DOSAGE (If Supplied By Facility): CTDIvol = ( 44.99 ) mGy, DLP = ( 745.49 ) mGycm COMPARISON: No relevant prior comparison study available FINDINGS: BRAIN: No acute bleed. No edema. Small old infarct in the right cerebellar hemisphere. Mild patchy decreased attenuation in the periventricular white matter bilaterally. Rendon-white matter differentiation is maintained. Arterial calcifications. VENTRICLES AND SULCI: Not dilated. EXTRA-AXIAL: No hemorrhage, fluid collection, or mass. CALVARIUM / SKULL BASE: Unremarkable. FACE/SINUSES: Unremarkable. SOFT TISSUES: Unremarkable. CT/Brain/Head without Contrast IMPRESSION: No acute abnormality. Old right cerebellar infarct. Chronic microvascular ischemic disease. CT angiogram and/or MRI may be helpful to evaluate for acute infarct as clinically indicated. Electronically Signed: Radha Talavera MD at 23:55 EDT , CC: Dr. Jose Hyde MD; Dr. Markell Pino DO Surgical Technician: Signed Normal [facility] CBC W/Diff, Automatedon 03-20 Absolute Neut Normal 2.0-7.7 [facility] Comment on above: Result Comment: DUPL ICATE, SEE SPECIMEN 1020:H113 Performed By: #### L 500.3400, L100.0100 #### [facility] [address] [place], [address] HCT Normal 37-47 [facility] Comment on above: Result Comment: DUPL ICATE, SEE SPECIMEN 1020:H113 Performed By: #### L 500.3400, L100.0100 #### [facility] [address] [place], [address] HGB Normal 12.0-15.0 [facility] Comment on above: Result Comment: DUPL ICATE, SEE SPECIMEN 1020:H113 Performed By: #### L 500.3400, L100.0100 #### [facility] [address] [place], [address] MCH Normal 27.0-32.0 [facility] Comment on above: Result Comment: DUPL ICATE, SEE SPECIMEN 1020:H113 Performed By: #### L 500.3400, L100.0100 #### [facility] [address] [place], [address] MCHC Normal 32-36 [facility] Comment on above: Result Comment: DUPL ICATE, SEE SPECIMEN 1020:H113 Performed By: #### L 500.3400, L100.0100 #### [facility] [address] [place], [address] MCV Normal 81-99 [facility] Comment on above: Result Comment: DUPL ICATE, SEE SPECIMEN 1020:H113 Performed By: #### L 500.3400, L100.0100 #### [facility] [address] [place], [address] NEUT% Normal 47-70 [facility] Comment on above: Result Comment: DUPL ICATE, SEE SPECIMEN 1020:H113 Performed By: #### L 500.3400, L100.0100 #### [facility] [address] [place], [address] PLT Normal 150-450 [facility] Comment on above: Result Comment: DUPL ICATE, SEE SPECIMEN 1020:H113 Performed By: #### L 500.3400, L100.0100 #### [facility] [address] [place], [address] RBC Normal 4.2-5.4 [facility] Comment on above: Result Comment: DUPL ICATE, SEE SPECIMEN 1020:H113 Performed By: #### L 500.3400, L100.0100 #### [facility] [address] [place], [address] RDW CV Normal 11.6-14.6 [facility] Comment on above: Result Comment: DUPL ICATE, SEE SPECIMEN 1020:H113 Performed By: #### L 500.3400, L100.0100 #### [facility] [address] [place], [address] RDW SD Normal 35.1-43.9 [facility] Comment on above: Result Comment: DUPL ICATE, SEE SPECIMEN 1020:H113 Performed By: #### L 500.3400, L100.0100 #### [facility] [address] [place], [address] WBC Normal 4.4-11.0 [facility] Comment on above: Result Comment: DUPL ICATE, SEE SPECIMEN 1020:H113 Performed By: #### L 500.3400, L100.0100 #### [facility] [address] [place], [address] Absolute Lymph 2.76 X10 3/uL Normal 0.83-4.51 [facility] Comment on above: Performed By: #### L 500.3400, L100.0100 #### [facility] [address] [place], [address] Absolute Neut 4.7 X10 3/uL Normal 2.0-7.7 [facility] Comment on above: Performed By: #### L 500.3400, L100.0100 #### [facility] [address] [place], [address] Basophils/100 WBC (Bld) 0.6 % Normal 0-1 [facility] Comment on above: Performed By: #### L 500.3400, L100.0100 #### [facility] [address] [place], [address] Eosinophils/100 WBC (Bld) 2.9 % Normal 0-5 [facility] Comment on above: Performed By: #### L 500.3400, L100.0100 #### [facility] [address] [place], [address] Erythrocyte distribution width (RBC) [Ratio] 13.3 % Normal 11.6-14.6 [facility] Comment on above: Performed By: #### L 500.3400, L100.0100 #### [facility] [address] [place], [address] Hematocrit (Bld) [Volume fraction] 42.0 % Normal 37-47 [facility] Comment on above: Performed By: #### L 500.3400, L100.0100 #### [facility] [address] [place], [address] Hemoglobin (Bld) [Mass/Vol] 14.7 g/dL Normal 12.0-15.0 [facility] Comment on above: Performed By: #### L 500.3400, L100.0100 #### [facility] [address] [place], [address] IG% 0.200 Normal 0.0-0.9 [facility] Comment on above: Result Comment: IG% - Immature Granulocytes (promyelocytes, myelocytes and metamyelocytes) > 1% indicates that a LEFT SHIFT is Present. Performed By: #### L 500.3400, L100.0100 #### [facility] [address] [place], [address] Lymphocytes/100 WBC (Bld) 33.1 % Normal 19-41 [facility] Comment on above: Performed By: #### L 500.3400, L100.0100 #### [facility] [address] [place], [address] MCH (RBC) [Entitic mass] 33.0 pg High 27.0-32.0 [facility] Comment on above: Performed By: #### L 500.3400, L100.0100 #### [facility] [address] [place], [address] MCHC (RBC) [Mass/Vol] 35.0 g/dL Normal 32-36 [facility] Comment on above: Performed By: #### L 500.3400, L100.0100 #### [facility] [address] [place], [address] MCV (RBC) [Entitic vol] 94.4 fL Normal 81-99 [facility] Comment on above: Performed By: #### L 500.3400, L100.0100 #### [facility] [address] [place], [address] Monocytes/100 WBC (Bld) 6.7 % Normal 0-10 [facility] Comment on above: Performed By: #### L 500.3400, L100.0100 #### [facility] [address] [place], [address] Neutrophils/100 WBC (Bld) 56.5 % Normal 47-70 [facility] Comment on above: Performed By: #### L 500.3400, L100.0100 #### [facility] [address] [place], [address] Nucleated RBC (Bld) [#/Vol] 0 10*3/uL Normal 0-5 [facility] Comment on above: Performed By: #### L 500.3400, L100.0100 #### [facility] [address] [place], [address] Platelet mean volume (Bld) [Entitic vol] 9.9 fL Normal 6.2-12.0 [facility] Comment on above: Performed By: #### L 500.3400, L100.0100 #### [facility] [address] [place], [address] Platelets (Bld) [#/Vol] 166 10*3/uL Normal 150-450 [facility] Comment on above: Performed By: #### L 500.3400, L100.0100 #### [facility] [address] [place], [address] RBC (Bld) [#/Vol] 4.45 10*6/uL Normal 4.2-5.4 [facility] Comment on above: Performed By: #### L 500.3400, L100.0100 #### [facility] [address] [place], [address] RDW SD 46.3 fl High 35.1-43.9 [facility] Comment on above: Performed By: #### L 500.3400, L100.0100 #### [facility] [address] [place], [address] WBC (Bld) [#/Vol] 8.4 10*3/uL Normal 4.4-11.0 [facility] Comment on above: Performed By: #### L 500.3400, L100.0100 #### [facility] [address] [place], [address] CTA Head AND Neck W/ Contras ton 04-07-2024 CTA Head AND Neck W/ Contrast [facility] Imaging Services [address] [place], [place] [address] CTA Head AND Neck W/ Contrast MR#: [id number] Acct: [id number] Name: ROBI OLIVARES Rep #: [id number] : 1950 F 73 From: Steven Suggs PCP: Dr. Jose Hyde MD Status: REG ER Study: CTA Head AND Neck W/ Contrast Date of Exam: Exam# [id number] Ordering Dr: Markell Pino DO [id number] EXAM: CT ANGIOGRAPHY HEAD AND NECK WITH INTRAVENOUS CONTRAST CLINICAL INDICATION: blurred vision, confusion TECHNIQUE: [place]/head and neck CT angiography protocol performed with intravenous contrast. This CT exam was performed using one or more of the following dose reduction techniques: automated exposure control, adjustment of the mA and/or kV according to patient size, and/or use of iterative reconstruction technique. MIP reconstructed images were created and reviewed. CONTRAST: 75 cc of Isovue-370 IV. RADIATION DOSE: CTDIvol = 12.28 mGy, DLP = 407.32 mGy-cm COMPARISON: Noncontrast head CT 04/07/2024. FINDINGS: HEAD: RIGHT ANTERIOR CEREBRAL ARTERY: Unremarkable. No occlusion or significant stenosis. Anterior communicating artery is present. No aneurysm. RIGHT MIDDLE CEREBRAL ARTERY: Unremarkable. No occlusion or significant stenosis. No aneurysm. RIGHT POSTERIOR CEREBRAL ARTERY: Unremarkable. No occlusion or significant stenosis. No aneurysm. RIGHT INTRACRANIAL INTERNAL CAROTID ARTERY: Moderate atherosclerotic changes right intracavernous internal carotid artery without hemodynamic significant stenosis. No dissection or occlusion. RIGHT INTRACRANIAL VERTEBRAL ARTERY: Unremarkable. No significant stenosis. No dissection or occlusion. LEFT ANTERIOR CEREBRAL ARTERY: Unremarkable. No occlusion or significant stenosis. No aneurysm. LEFT MIDDLE CEREBRAL ARTERY: Unremarkable. No occlusion or significant stenosis. No aneurysm. LEFT POSTERIOR CEREBRAL ARTERY: Unremarkable. No occlusion or significant stenosis. No aneurysm. LEFT INTRACRANIAL INTERNAL CAROTID ARTERY: Moderate atherosclerotic changes left intracavernous internal carotid artery without hemodynamic significant stenosis. No dissection or occlusion. LEFT INTRACRANIAL VERTEBRAL ARTERY: Unremarkable. No significant stenosis. No dissection or occlusion. BASILAR ARTERY: Unremarkable. No occlusion or significant stenosis. No aneurysm. OTHER VASCULATURE: No vascular malformation. 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 NECK: RIGHT COMMON CAROTID ARTERY: Unremarkable. No significant stenosis. No dissection or occlusion. RIGHT EXTRACRANIAL INTERNAL CAROTID ARTERY: Moderate atherosclerotic changes right carotid bulb without hemodynamically significant stenosis. No dissection or occlusion. RIGHT EXTERNAL CAROTID ARTERY: Unremarkable. No occlusion. RIGHT EXTRACRANIAL VERTEBRAL ARTERY: Unremarkable. No significant stenosis. No dissection or occlusion. LEFT COMMON CAROTID ARTERY: Unremarkable. No significant stenosis. No dissection or occlusion. LEFT EXTRACRANIAL INTERNAL CAROTID ARTERY: Moderate atherosclerotic changes left carotid bulb without hemodynamically significant stenosis. No dissection or occlusion. LEFT EXTERNAL CAROTID ARTERY: Unremarkable. No occlusion. LEFT EXTRACRANIAL VERTEBRAL ARTERY: Unremarkable. No significant stenosis. No dissection or occlusion. BRACHIOCEPHALIC AND SUBCLAVIAN ARTERIES: Unremarkable as visualized. No occlusion or significant stenosis. LUNG APICES: Unremarkable as visualized. HEAD and NECK: BONES/JOINTS: Unremarkable. No discrete lytic or blastic abnormalities. SOFT TISSUES: Unremarkable. CAROTID STENOSIS REFERENCE USING NASCET CRITERIA: % ICA stenosis = (1 - narrowest ICA diameter/diameter of distal cervical ICA) x 100. Mild - <50% stenosis. Moderate - 50-69% stenosis. Severe - 70-94% stenosis. Near occlusion - 95-99% stenosis. Occluded - 100% stenosis. CT/CTA Head AND Neck W/ Contrast IMPRESSION: 1. No large vessel occlusion or significant intracranial vascular abnormality. 2. Moderate atherosclerotic changes right carotid bulb without hemodynamically significant stenosis. 3. Dense atherosclerotic changes left carotid bulb without hemodynamically significant stenosis. 4. Moderate atherosclerotic changes right intracavernous internal carotid artery without hemodynamic significant stenosis. 5. Moderate atherosclerotic changes left intracavernous internal carotid artery without hemodynamic significant stenosis. 6. 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 Electronically Signed: Steven Aponte MD at 1:01 EDT , CC: (more content not included)... Normal [facility] Chest 1 View (Portable)on Chest 1 View (Portable) [facility] Imaging Services [address] [place] [address] Chest 1 View (Portable) MR#: [id number] Acct: [id number] Name: ROBI OLIVARES Rep #: [id number] : 1950 F 73 From: Radha Suggs PCP: Dr. Jose Hyde MD Status: PRE ER Study: Chest 1 View (Portable) Date of Exam: 04/07/24 Exam# [id number] Ordering Dr: Marklel Pino DO [id number] INDICATION: Stroke STROKE PROTOCOL, CONFUSION EXAMINATION/TECHNIQUE: X-RAY - XR Chest 1 View AP portable. 10:06 PM COMPARISON: Prior study dated: 04/12/2012 FINDINGS: LINES/DEVICES: None. LUNGS: No consolidation. No pneumothorax. MEDIASTINUM: Aorta is atherosclerotic. CARDIAC SILHOUETTE: Not enlarged. BONES AND SOFT TISSUES: No acute abnormalities. RAD/Chest 1 View (Portable) IMPRESSION: No evidence of active intrathoracic disease. Electronically Signed: Radha Talavera MD at 22:43 EDT , CC: Dr. Jose Hyde MD; Dr. Markell Pino DO Surgical Technician: Signed Normal [facility] Emergency Department Summary on 04-07-2024 Emergency Department Summary [facility] Medical Records Department [address] [place] [address] Emergency Department Summary 04/07/24 MR#: [id number] Acct: [id number] Name: ROBI OLIVARES Rep #: [id number] : 1950 73 From: Markell Pino DO PCP: Dr. Jose Hyde MD Status:DEP ER Location: ED [facility] History of Present Illness Chief Complaint: Neuro S/Sx Detail of Chief Complaint: Blurred vision Informant: patient and spouse/S.O. Narrative Narrative: Patient presents to the emergency department with complaint of blurred vision. Patient and her were filling out their absentee balance around 815 when she became very upset because she felt that her was treating her like a child. Patient's writing became very illegible and she had blurred vision in both eyes. She states that he felt like there was clouds around her vision. She became very upset. Patient thinks maybe she was having a stroke or a nervous breakdown. Patient had been drinking alcohol tonight and had 3 drinks. Patient on Plavix and aspirin currently. She currently states that her vision is resolved. She has no difficulty with speech. She denies weakness in the extremities. [facility] Medical History (Updated 04/08/24 @ 01:[address] Markell Pino DO) Atherosclerotic heart disease of [place] coronary artery without angina pectoris Pure hypercholesterolemia IBS (irritable bowel syndrome) Hypothyroidism Presence of stent in coronary artery ( 08/08/12) Atherosclerotic heart disease of [place] coronary artery without angina pectoris Benign essential HTN Arteriosclerotic heart disease (ASHD) Home Medications ???Medication ???Instructions ???Recorded ???Last Taken ???Type amlodipine 5 mg tablet 5 mg PO DAILY 06/04/13 02/01/16 05:00 History atenolol 25 mg tablet 25 mg PO DAILY 06/04/13 02/01/16 05:00 History clopidogrel 75 mg tablet 75 mg PO DAILY 06/04/13 Unknown History nitroglycerin 0.4 mg sublingual 0.4 mg sublingual Q5M PRN Chest 06/04/13 Unknown History tablet Pain pantoprazole 40 mg tablet,delayed 20 mg PO BID 06/04/13 02/01/16 05:00 History release bupropion HCl 100 mg tablet,12 hr 100 mg PO DAILY 06/28/18 Unknown History sustained-release (Wellbutrin SR) sertraline 100 mg tablet 100 mg PO DAILY 06/28/18 Unknown History levothyroxine 50 mcg tablet 50 mcg PO DAILY 06/10/19 Unknown History atorvastatin 80 mg tablet 80 mg PO QHS #30 tabs 12/16/19 Unknown Rx Allergy/AdvReac Type Severity Reaction Status Date / Time codeine Allergy Severe Swelling Verified 04/07/24 21:24 propoxyphene HCl (From Allergy Severe Other Verified 04/07/24 21:24 Darvon) Penicillins AdvReac Intermediate Nausea/Vom/ Verified 04/07/24 21:24 Diarrhea Family History Brother CVA (cerebral vascular accident) Heart disease Cancer Surgical History Presence of coronary angioplasty implant and graft ( 08/08/12) History of aorto-femoral bypass History of heart artery stent History of left knee surgery History of hysterectomy History of lumbar surgery History of hysterectomy PAD (peripheral artery disease) Social History Smoking Status: Former smoker alcohol intake: never substance use type: does not use ROS ROS ED Review of Systems ROS Unobtainable: other Constitutional Constitutional ED: Reports lethargy; Denies chills, fever(s), sweats or weight loss Eyes Eyes: Reports blurry vision; Denies change in vision or diplopia ENT ENT ED: Denies rhinorrhea or sore throat Cardiovascular Cardiovascular: Denies chest pain, orthopnea or racing heartbeat Respiratory/Chest Respiratory/Chest: Denies cough, dyspnea, dyspnea on exertion, orthopnea or sputum Gastrointestinal Gastrointestinal: Denies abdominal pain, diarrhea, nausea or vomiting Genitourinary Genitourinary ED: Denies dysuria, hematuria or urinary frequency Musculoskeletal Musculoskeletal: Denies arthralgias, back pain, myalgias or neck pain Integumentary Denies abscess, Abrasions or rash Neurologic Neurologic: Denies headache(s) or weakness Psychiatric Psychiatric: Denies anxiety, depression or suicidal thoughts Endocrine Endocrinology: Denies polydipsia, polyphagia or polyuria Hematologic/Lymphatic Hematologic/Lymphatic: Denies easy bleeding, easy bruising or lymphadenopathy Allergic/Immunologic Allergic/Immunologic ED: Denies mouth swelling, tongue swelling or urticaria EXAM Physical Exam Const Vital Signs: 04/07/24 21:24 04/07/24 21:35 04/07/24 22:01 Temperature 97.5 F L Temperature Source Oral Pulse Rate 59 L 59 L Respiratory Rate 18 18 Blood Pressure 162/68 H 162/68 H Blood Pressure Mean 99 99 Pulse Ox 100 100 96 Oxygen Deliv (more content not included)... Normal [facility] Partial Thromboplast Timeon 04-07-2024 aPTT Coag (Bld) [Time] 28.4 s Normal 24.1-36.2 [facility] Comment on above: Performed By: #### L 500.3400, L100.0100 #### [facility] [address] [place], [address] Prothrombin Time w/INRon INR Coag (PPP) [Relative time] 1.0 {INR} Normal [facility] Comment on above: Performed By: #### L 500.3400, L100.0100 #### [facility] [address] [place], [address] PT Coag (PPP) [Time] 13.2 s Normal 11.7-14.9 [facility] Comment on above: Performed By: #### L 500.3400, L100.0100 #### [facility] [address] [place], [address] CNPNon 03-13-2024 [facility] Telephone (INTWS) -- ROBI OLIVARES ([id number]) 1950 F Date Time Provider Department 03/13/24 JOSE HYDE INTWS During your visit today, we recorded the following information about you: Corinna Rodriguez LPN 03/13/2024 9:37 AM Signed Faxed received from [employer] requesting a copy of office visit notes. [...] without problem Date Reviewed: 10/16/2023 Reviewed by: Romina Chao APRN.BARREL [employer]DERER - Fully Assessed Reason for Visit: Forms [...] skin [L57.8] 05/05/2010 CAD (coronary artery disease), [place] coronary *10/14/2010 Coronary stent 10/14/2010 Carcinoma in [...] Encounter Status:Closed by CORINNA RODRIGUEZ on 03/13/24 [facility] MARSHALLROBI Dickinson ([id number]) 1950 F Date Time Provider Department 01/15/24 [...] without problem Date Reviewed: 10/16/2023 Reviewed by: Romina Chao APRN.[employer]REL [employer]DERER - Fully Assessed Reason for Visit: Forms [...] skin [L57.8] 05/05/2010 CAD (coronary artery disease), [place] coronary *10/14/2010 Coronary stent 10/14/2010 Carcinoma in [...] Encounter Status:Closed by BEN[facility]ANSEN [facility] ROBI OLIVARES ([id number]) 1950 F Date Time Provider Department 01/10/24 JOSE HYDE INTMWS During your visit today, we recorded the following information about you: Celina Saenz LPN 01/10/2024 2:03 PM Signed Received forms from [employer] requesting chart notes and patient's PCP to [...] without problem Date Reviewed: 10/16/2023 Reviewed by: Romina Chao APRN.[employer]ER - Fully Assessed Reason for Visit: DME [...] skin [L57.8] 05/05/2010 CAD (coronary artery disease), [place] coronary *10/14/2010 Coronary stent 10/14/2010 Carcinoma in [...] Encounter Status:Closed by CELINA SAENZ on 01/10/24 Normal [facility] CBC W Auto Differential pane l (Bld)on 10-16-2023 Basophils (Bld) [#/Vol] 0.08 10*3/uL [facility] Basophils/100 WBC (Bld) 0.7 % [facility] Differential cell count method Nom (Bld) Auto [facility] Eosinophils (Bld) [#/Vol] 0.22 10*3/uL [facility] Eosinophils/100 WBC (Bld) 1.9 % [facility] Erythrocyte distribution width (RBC) [Ratio] 13.2 % 11.5 - 15.0 % [facility] Hematocrit (Bld) [Volume fraction] 45.5 % 36.0 - 46.0 % [facility] Hemoglobin (Bld) [Mass/Vol] 15.6 g/dL High 11.5 - 15.5 g/dL [facility] Immature granulocytes (Bld) [#/Vol] 0.03 10*3/uL [facility] Immature granulocytes/100 WBC (Bld) 0.3 % [facility] Interpretation and review of laboratory results Abnormal [facility] Lymphocytes (Bld) [#/Vol] 2.94 10*3/uL [facility] Lymphocytes/100 WBC (Bld) 25.9 % [facility] MCH (RBC) [Entitic mass] 33.4 pg 26.0 - 34.0 pg [facility] MCHC (RBC) [Mass/Vol] 34.3 g/dL 30.5 - 36.0 g/dL [facility] MCV (RBC) [Entitic vol] 97.4 fL 80.0 - 100.0 fL [facility] Monocytes (Bld) [#/Vol] 0.78 10*3/uL [facility] Monocytes/100 WBC (Bld) 6.9 % [facility] Neutrophils (Bld) [#/Vol] 7.30 10*3/uL [facility] Neutrophils/100 WBC (Bld) 64.3 % [facility] Nucleated RBC (Bld) [#/Vol] NINF [facility] Nucleated RBC/100 WBC (Bld) [Ratio] 0.0 % /100 WBC [facility] Platelet mean volume (Bld) [Entitic vol] 12.2 fL 9.0 - 12.7 fL [facility] Platelets (Bld) [#/Vol] 209 10*3/uL [facility] RBC (Bld) [#/Vol] 4.67 10*6/uL 3.90 - 5.20 m/uL [facility] WBC (Bld) [#/Vol] 11.35 10*3/uL [facility] Comprehensive metabolic 2000 panelon 03-29-2023 Albumin [Mass/Vol] 4.2 g/dL 3.9 - 4.9 g/dL [facility] ALP [Catalytic activity/Vol] 79 U/L 34 - 123 U/L [facility] ALT [Catalytic activity/Vol] 14 U/L 7 - 38 U/L [facility] Anion gap [Moles/Vol] 12 mmol/L 9 - 18 mmol/L [facility] AST [Catalytic activity/Vol] 23 U/L 13 - 35 U/L [facility] Bilirubin [Mass/Vol] 0.3 mg/dL 0.2 - 1 .3 mg/dL [facility] Calcium [Mass/Vol] 9.7 mg/dL 8.5 - 10. 2 mg/dL [facility] Chloride [Moles/Vol] 103 mmol/L 97 - 10 5 mmol/L [facility] CO2 [Moles/Vol] 25 mmol/L 22 - 30 mmol/L [facility] Creatinine [Mass/Vol] 0.79 mg/dL 0.58 - 0.96 mg/dL [facility] Estimated Glomerular Filtration Rate 79 mL/min/1.73m >=60 mL/min/1.7 3m [facility] Glucose [Mass/Vol] 100 mg/dL High 74 - 99 mg/dL [facility] Potassium [Moles/Vol] 4.3 mmol/L 3.7 - 5.1 mmol/L [facility] Protein [Mass/Vol] 7.1 g/dL 6.3 - 8.0 g/dL [facility] Sodium [Moles/Vol] 140 mmol/L 136 - 144 mmol/L [facility] Urea nitrogen [Mass/Vol] 11 mg/dL 7 - 21 mg/dL [facility] T3 FREE BLDon 03-29-2023 Free T3 [Mass/Vol] 3.0 pg/mL 2.3 - 4.1 pg/mL [facility] T4 FREE/FREE THYROXon 2022 Free T4 [Mass/Vol] 1.5 ng/dL 0.9 - 1.7 ng/dL [facility] TSH Don 03-29-2023 TSH Qn 3.910 m[IU]/L 0.270 - 4.200 mIU/L [facility] VITAMIN D 25 HYDROXYon 03-29 25-hydroxyvitamin D3 [Mass/Vol] 65.6 ng/mL 31.0 - 80.0 ng/mL [facility] CBC panel Auto (Bld)on 03-28 Erythrocyte distribution width (RBC) [Ratio] 13.1 % 11.5 - 15.0 % [facility] Hematocrit (Bld) [Volume fraction] 45.8 % 36.0 - 46.0 % [facility] Hemoglobin (Bld) [Mass/Vol] 15.9 g/dL High 11.5 - 15.5 g/dL [facility] MCH (RBC) [Entitic mass] 33.8 pg 26.0 - 34.0 pg [facility] MCHC (RBC) [Mass/Vol] 34.7 g/dL 30.5 - 36.0 g/dL [facility] MCV (RBC) [Entitic vol] 97.2 fL 80.0 - 100.0 fL [facility] Nucleated RBC (Bld) [#/Vol] <0.01 k/uL [facility] Platelet mean volume (Bld) [Entitic vol] 11.4 fL 9.0 - 12.7 fL [facility] Platelets (Bld) [#/Vol] 233 10*3/uL 150 - 400 k/uL [facility] RBC (Bld) [#/Vol] 4.71 10*6/uL 3.90 - 5.20 m/uL [facility] WBC (Bld) [#/Vol] 8.83 10*3/uL 3.70 - 11.00 k/uL [facility] No Panel InformationOrdered By: Orlin Fletcher on 01-25-2023 Endomysial IgA Antibody Negative Negative [facility] Stool Calprotectin 232 ug/g 0-120 [facility] Comment on above: Concentration Interp retation Follow-Up< 5 - 50 ug/g Normal None>50 -120 ug/g Borderline Re-evaluate in 4-6 weeks >120 ug/g Abnormal Repeat as clinically indicatedPerformed at: [facility] [address] [id number] Director: Maru Sue MD, Phone: [phone] Serum IgA measurement (units /volume)Ordered By: Orlin Fletcher on 01-25-2023 IgA Qn (S) 105 mg/dL 64-422 [facility] Comment on above: Performed at: [address] [id number] Director: Orlin Wagner PhD, Phone: [phone] Serum or plasma C reactive p rotein measurement (mass/volume)Ordered By: Orlin Fletcher on 01-25-2023 CRP [Mass/Vol] mg/L 0.0-3.0 [facility] Comment on above: C-Reactive Protein ( CRP) provides useful information for thediagnosis, therapy and monitoring of inflammatory processesand associated diseases. For the evaluation of Relative Riskfor Cardiovascular Disease, a High Sensitivity CRP (HSCRP)should be ordered. Serum tissue transglutaminas e IgA antibody assay (units/volume)Ordered By: Orlin Fletcher on 01-25-2023 tTG IgA Qn (S) <2 U/mL 0-3 [facility] Comment on above: Negative 0 - 3 Weak Positive 4 - 10 Positive >10 Tissue Transglutaminase (tTG) has been identified as the endomysial antigen. Studies have demonstr- ated that endomysial IgA antibodies have over 99% specificity for gluten sensitive enteropathy. Jatinder 09-09-2021 AYE Telephone (AGCARDPOB ) -- ROBI OLIVARES ([id number]) 1950 F Date Time Provider Department 09/09/21 ISABELA DUPREE During your visit today, we recorded the following information about you: Zhanna Villasenor LPN 09/09/2021 2:00 PM Signed ----- Message from Isabela Dupree APRN.BARREL RIBS SOLDERER sent at 09/09/2021 2:00 PM EDT ----- Please call the patient and report echo results revealed preserved LV Function 69% and stable mild LVH. Patient has mild MR. Recommend continue current medical therapy. Thanks, Isabela Dupree APRN.DEVIN Villasenor LPN 09/09/2021 2:02 PM Signed Left message for to call [facility] for test results. [facility] phone number provided. SANTA Mtz RN [...] Date Reviewed: 08/09/2021 Reviewed by: Zhanna Tracy APRN.DEVIN - Fully Assessed Reason for Visit: Results [...] every morning. May repeat as needed. 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 Normal [facility] Jatinder 08-31-2021 CNPN Telephone (AGCDOYLEPOB ) -- ROBI OLIVARES ([id number]) 1950 F Date Time Provider Department 08/31/21 ZHANNA TRACY During your visit today, we recorded the following information about you: Zhanna Tracy APRN.CNP 08/31/2021 9:37 AM Signed Can you please ask the patient how her blood pressures have been at home (ask for her home BP log) since increasing her norvasc from 5 to 10 mg at our last office visit. Thank you! Zhanna Tracy APRN.DEVIN Mata RN 08/31/2021 9:44 AM Signed Call to pt, spouse answered and did not know her BP results. [facility] pt will call back when available. [...] questions or concerns. Patient Update Isabela Dupree APRN.DEVIN You 16 hours ago (4:01 PM) NI Blood Pressure under reasonable control. BP Goal <130/80. ?Continue current medications and advise patient to call the office if BP is consistently over 130/80. We also recommend low sodium diet and reducing caffeine intake. Thanks. Isabela Dupree APRN.DEVIN Message text Allergies As of Date: 08/31/2021 Noted Allergy Reaction CODEINE 10/11/2007 4 - Hives DARVON (PROPOXYPHENE HCL) 10/11/2007 4 - Hives MORPHINE 09/14/2017 14 - Other: See Comments Comments: Made tongue swell PENICILLINS 10/11/2007 10 - Anaphylaxis SIMVASTATIN 04/17/2012 14 - Other: See Comments Comments: elevated LFTS; had tolerated Lipitor for years without problem Date Reviewed: 08/09/2021 Reviewed by: Zhanna Tracy APRN.CNP - Fully Assessed Reason for Visit: Patient [...] every morning. May repeat as needed. - L.acid/L.casei/B.bif/B.skye /FOS (PROBIOTIC BLEND ORAL) Take 1 capsule by [...] unspecified [L08. (more content not included)... Normal [facility] Final Surgical Pathology Rep [facility] 11-04-2020 Final Surgical Pathology Report . Pathology Reports Accession: Collected Date/Time: Received Date/Time: Pathologist: [id number] 11/02/2020 09:55 EDT 11/03/2020 14:58 EDT MD JOE WRIGHT Final Surgical Pathology Report DIAGNOSIS: A) CECUM, POLYPECTOMY - - TUBULAR ADENOMA. B) RECTUM, POLYPECTOMY - - TUBULAR ADENOMA. COMMENT: [facility] [id number] CLINICAL INFORMATION: Procedure: COLONOSCOPY WITH ARGON PLASMA [...] Electronically Signed by Pathology Report verified by [facility] Electronically signed by JOE WRIGHT MD Sign out Date: 11/04/2020 14:30 Performing Lab: [facility], [address] [place] [address] ([place]) Comment on above: Performed By: #### S PFR #### [place] [address] Surgical Tissue Examon 03-19 Surgical Tissue Exam Test performed at [place] [address] NAME: ROBI OLIVARES REQUESTING: SELENE RATLIFF MD [...] 16:53 PRINTED: 04/07/2020 Page 1 of 1 [facility] Comment on above: Performed By: #### S URG #### [place] [address] Coronavirus 2019on 0 COVID 19 Result AWS DEVELOPER Negative Normal [facility] Comment on above: Result Comment: Nega tive for COVID19 (SARS CoV2) by PCR. This test was developed and its performance characteristics determined by [facility]'s Karsten Reyes Pathology and Laboratory Medicine [place]. This test has been authorized by FDA under an Emergency Use Authorization (EUA). This test has been validated in accordance with the FDA's Guidance Document Policy for Diagnostics Testing in Laboratories Certified to Perform High Complexity Testing under CLIA prior to Emergency use Authorization for Coronavirus Disease 2019 during the Public Health Emergency issued on August 17, 2019. Performing Laboratory: [facility] [address] [place] [address] Performed By: #### C D19X #### [place] [address] ALLIED HEALTHon 11-23-2017 ALLIED HEALTH HNO ID: [id number] thor: Esequiel (Rt) Janine Mandel: (none)Author Type: TechnicianType: Allied HealthFiled: 11/23/2017 5:13 PMNote Text: Radiology Service Progress NotePATIENT NAME: Robi OlivaresMRN: [id number] OF SERVICE: November 23, 2017TIME: 5:13 PMPATIENT IDENTITY VERIFICATION COMPLETED USING TWO (2) METHODS: Patientconfirmed name verbally and ID band matches..PATIENT GENDER DATA: Female. status: : NoBreastfeeding status: NO.PATIENT RELEVANT IMPLANT DATA REVIEWED: Not ApplicableRADIOLOGY DEPARTMENT: General X-ray: Exam(s) Completed: Spine X-Ray(s):Lumbar AP / LAT / [id number] IV DATA: Not applicableSIGNED BY: Savita Donato 2017 5:13 PM [facility] XR LUMBAR 2V AP/LATon 2017 XR [...] levoscoliosis. Extensive atherosclerosis is seen in the aorta.IMPRESSION:Multileve l degenerative disc disease with L2-L5 fusion and mild scoliosis as well as evidence of atherosclerosis without significant interval change.Surgical Technician: MARLYN Transcribe Date/Time: Nov 23 2017 6:01PDictated by : SUE TAVERA MDThitonya examination was interpreted and the report reviewed and electronically signed by: SUE TAVERA MD on Nov 23 2017 6:02PM [id number] Normal [facility] Office Visit: Pat 03-20-20 Fall risk assessment No Invalid Interpretation Code [employer] Work Phone: [phone] Protein mass conc Done Invalid Interpretation Code [facility] Work Phone: [phone] Replaced Document: Akilah Kaur Observationson 08-30-2016 EKG QRS axis 4 deg Invalid Interpretation Code [facility] Work Phone: [phone] Interpretation Sinus Bradycardia WI THIN NORMAL LIMITS Invalid Interpretation Code [facility] Work Phone: [phone] P [place] -27 deg Invalid Interpretation Code [facility] Work Phone: [phone] IN Interval 140 ms Invalid Interpretation Code [facility] Work Phone: [phone] QRS Duration 96 ms Invalid Interpretation Code [facility] Work Phone: [phone] QT Interval new path ms Invalid Interpretation Code [facility] Work Phone: [phone] QTc [place] 458 ms Invalid Interpretation Code [facility] Work Phone: [phone] T [place] 27 deg Invalid Interpretation Code [facility] Work Phone: [phone] Clinical Lists Update: Pre08-26-2016 Left ventricular Ejection fraction 65 % Invalid Interpretation Code [facility] Work Phone: [phone] Clinical Lists Update: Pre reservations specialist 01-19-2016 Calcium mass conc 9.5 mg/dL Invalid Interpretation Code [facility] Work Phone: [phone] Chloride molar conc 104 mmol/L Invalid Interpretation Code [facility] Work Phone: [phone] CO2 ppres (BldV) 27.0 mmol/L Invalid Interpretation Code [facility] Work Phone: [phone] Creatinine mass conc 1.02 mg/dL Invalid Interpretation Code [facility] Work Phone: [phone] Glucose mass conc 96 mg/dL Invalid Interpretation Code [facility] Work Phone: [phone] Hematocrit Auto Volume Fraction (Bld) 38.2 % Invalid Interpretation Code [facility] Work Phone: [phone] Hemoglobin mass conc (Bld) 12.8 g/dL Invalid Interpretation Code [facility] Work Phone: [phone] Platelets Auto #/vol (Bld) 162 10*3/mm3 Invalid Interpretation Code [facility] Work Phone: [phone] Potassium molar conc 3.5 mmol/L Invalid Interpretation Code [facility] Work Phone: [phone] Sodium molar conc 137 mmol/L Invalid Interpretation Code [facility] Work Phone: [phone] Thyrotropin Qn 2.83 u[iU]/mL Invalid Interpretation Code [facility] Work Phone: [phone] Urea nitrogen mass conc 15 mg/dL Invalid Interpretation Code [facility] Work Phone: [phone] Urea nitrogen/Creatinine mass ratio 14.7 mg/mg Invalid Interpretation Code [facility] Work Phone: [phone] WBC Auto #/vol (Bld) 8.7 10*3/uL Invalid Interpretation Code [facility] Work Phone: [phone] Lab Report: Lipid Profileon 08-17-2015 Cholesterol in HDL mass conc 45 mg/dL Invalid Interpretation Code [facility] Work Phone: [phone] Cholesterol in LDL mass conc 95 mg/dL Invalid Interpretation Code 0-130 [facility] Work Phone: [phone] Cholesterol mass conc 161 mg/dL Invalid Interpretation Code 200 [facility] Work Phone: [phone] Lipoprotein.pre-beta mass conc 21 mg/dL Invalid Interpretation Code 5-40 [facility] Work Phone: [phone] Triglyceride mass conc 103 mg/dL Invalid Interpretation Code [facility] Work Phone: [phone] Lab Report: Liver Profileon 08-17-2015 Albumin mass conc 3.6 g/dL Invalid Interpretation Code 3.4-5.0 [facility] Work Phone: [phone] ALP enzyme act/vol (Bld) 99 U/L Invalid Interpretation Code 50-136 [facility] Work Phone: [phone] ALT enzyme act/vol 21 U/L Invalid Interpretation Code 12-78 [facility] Work Phone: [phone] AST enzyme act/vol 21 U/L Invalid Interpretation Code 15-37 [facility] Work Phone: [phone] Bilirubin mass conc 0.30 mg/dL Invalid Interpretation Code 0.20-1.00 [facility] Work Phone: [phone] Bilirubin.direct mass conc 0.11 mg/dL Invalid Interpretation Code 0.00-0.30 [facility] Work Phone: [phone] Globulin Calculated mass conc (S) 3.8 g/dL High 2.3-3.5 [facility] Work Phone: [phone] Protein mass conc 7.4 g/dL Invalid Interpretation Code 6.4-8.2 [facility] Work Phone: [phone] Office Visit: [facility] 08-11-19 16 Tobacco smoking status AZIS Former smoker Invalid Interpretation Code [facility] Work Phone: [phone] Office Visit: [facility] 06-30-19 15 cardiac risk group C Invalid Interpretation Code [facility] Work Phone: [phone] General cardiovascular disease 10Y risk [#] Jackson.D'Agostino N/A Invalid Interpretation Code [facility] Work Phone: [phone] Tobacco smoking status NHIS Never Invalid Interpretation Code [facility] Work Phone: [phone] Lab Report: BMPon 01-15-2014 Anion gap 4 molar conc 8 Normal 5-15 [facility] Work Phone: [phone] GFR/1.73 sq M predicted among non-blacks MDRD vol rate/area (S/P/Bld) 53 mL/min/{1.73_m2} Low >60 [facility] Work Phone: [phone] GFRAA 64 mL/min Normal >60 [facility] Work Phone: [phone] Lab Report: Ordered by Dr. Brandon romeo 05-29-2013 Erythrocyte distribution width Auto Ratio (RBC) 14.6 % Invalid Interpretation Code [facility] Work Phone: [phone] MCH Auto Entitic mass (RBC) 28.3 pg Invalid Interpretation Code [facility] Work Phone: [phone] MCHC Auto mass conc (RBC) 34.6 % Invalid Interpretation Code [facility] Work Phone: [phone] MCV Auto Entitic volume (RBC) 81.7 fL Invalid Interpretation Code [facility] Work Phone: [phone] Platelet mean volume Joaquín-Tessa Entitic volume (Bld) 9.8 fL Invalid Interpretation Code [facility] Work Phone: [phone] RBC Auto #/vol (Bld) 4.70 10*6/uL Invalid Interpretation Code [facility] Work Phone: [phone] Lab Report: PTon 07-23-2012 INR Coag RelTime (PPP) 1.1 {INR} Normal [facility] Work Phone: [phone] PTP 13.9 SECONDS Normal 11.9-14.4 [facility] Work Phone: [phone] Lab Report: PTTon 07-23-2012 aPTT Coag time (Bld) 37.1 s High 24.1-36.[address] [facility] Work Phone: [phone] Clinical Lists Update: Prelo reservations specialist 04-11-2012 Ferritin mass conc 16.2 ng/mL Low [facility] Work Phone: [phone] Iron binding capacity mass conc 419 ug/dL High [facility] Work Phone: [phone] Iron mass conc 22 ug/dL Low [facility] Work Phone: [phone] Transferrin saturation in Serum or Plasma 5 % Low [facility] Work Phone: [phone] Office Visiton 04-11-2012 T4 mass conc 9.3 ug/dL Invalid Interpretation Code [facility] Work Phone: [phone] Clinical Lists Update: Prelo reservations specialist 10-05-2011 Cholesterol.total/Chol esterol in HDL mass ratio 5.5 {ratio} High [facility] Work Phone: [phone] Vital Signs Date Time Vital Sign Value Performing Clinician Facility 12-03-2024 13:20-0400 Diastolic blood pressure 91 mm[Hg] Vlad Pyle SYSTEMS PROGRAMMER ANALYST.WATCH ASSEMBLY INSPECTOR Work Phone: [facility] 12-03-2024 13:20-0400 Heart rate 77 /min Vlad Pyle SYSTEMS PROGRAMMER ANALYST.WATCH ASSEMBLY INSPECTOR Work Phone: [facility] 12-03-2024 13:20-0400 Systolic blood pressure 179 mm[Hg] Vlad Pyle SYSTEMS PROGRAMMER ANALYST.WATCH ASSEMBLY INSPECTOR Work Phone: [facility] 12-03-2024 13:19-0400 Body mass index (BMI) [Ratio] 15.86 kg/m2 Vlad Pyle SYSTEMS PROGRAMMER ANALYST.WATCH ASSEMBLY INSPECTOR Work Phone: [facility] 12-03-2024 13:19-0400 Body weight 41.1 kg Vlad Pyle SYSTEMS PROGRAMMER ANALYST.WATCH ASSEMBLY INSPECTOR Work Phone: [facility] 12-03-2024 13:19-0400 Respiratory rate 16 /min Vlad Pyle SYSTEMS PROGRAMMER ANALYST.WATCH ASSEMBLY INSPECTOR Work Phone: [facility] 11-05-2024 16:02-0400 Body mass index (BMI) [Ratio] 16.4 kg/m2 Jose Hyde MD Work Phone: [facility] 11-05-2024 16:02-0400 Body weight 42.5 kg Jose Hyde MD Work Phone: [facility] 11-05-2024 16:02-0400 Diastolic blood pressure 74 mm[Hg] Jose Hyde MD Work Phone: [facility] 11-05-2024 16:02-0400 Heart rate 80 /min Jose Hyde MD Work Phone: [facility] 11-05-2024 16:02-0400 Respiratory rate 18 /min Jose Hyde MD Work Phone: [facility] 11-05-2024 16:02-0400 Systolic blood pressure 134 mm[Hg] Jose Hyde MD Work Phone: [facility] 10-24-2024 14:13-0400 Body temperature 97.5 [degF] Dr. Jose Hyde MD Work Phone: [facility] 10-24-2024 14:13-0400 Diastolic blood pressure 80 mm[Hg] Dr. Jose Hyde MD Work Phone: 0(300)606-436255 [place] [address] 10-24-2024 14:13-0400 Heart rate 76 /min Dr. Jose Hyde MD Work Phone: 3(496)095-490655 [place] [address] 10-24-2024 14:13-0400 Respiratory rate 16 /min Dr. Jose Hyde MD Work Phone: 7(547)[phone] [place] [address] 10-24-2024 14:13-0400 SaO2% (BldA) [Mass fraction] 98 % Dr. Jose Hyde MD Work Phone: [phone])870-644555 [place] [address] 10-24-2024 14:13-0400 Systolic blood pressure 119 mm[Hg] Dr. Jose Hyde MD Work Phone: 0([phone])685-891955 [place] [address] 10-24-2024 06:00-0400 Body mass index (BMI) [Ratio] 14.6 kg/m2 Dr. Jose Hyde MD Work Phone: [facility] 10-24-2024 06:00-0400 Body weight 37.[address] Jose Hdye MD Work Phone: 6(678)949-176355 [place] [address] 10-23-2024 13:57-0400 Body height 160.[address] Jose Hyde MD Work Phone: 7(852)997-611755 [place] [address] 10-15-2024 19:24-0400 Body temperature 98.1 [degF] Dr. Jose Hyde MD Work Phone: 8(548)285-047155 [place] [address] 10-15-2024 19:24-0400 Diastolic blood pressure 89 mm[Hg] Dr. Jose Hyde MD Work Phone: 2(525)117-133255 [place] [address] 10-15-2024 19:24-0400 Heart rate 85 /min Dr. Jose Hyde MD Work Phone: 6(915)479-586755 [place] [address] 10-15-2024 19:24-0400 Respiratory rate 16 /min Dr. Jose Hyde MD Work Phone: 9(863)106-054655 [place] [address] 10-15-2024 19:24-0400 SaO2% (BldA) [Mass fraction] 98 % Dr. Jose Hyde MD Work Phone: 8(210)035-655355 [place] [address] 10-15-2024 19:24-0400 Systolic blood pressure 154 mm[Hg] Dr. Jose Hyde MD Work Phone: 1(201)730-384355 [place] [address] 10-15-2024 16:54-0400 Body temperature 97.7 [degF] Dr. Jose Hyde MD Work Phone: 4(379)666-687255 [place] [address] 10-15-2024 16:54-0400 Diastolic blood pressure 73 mm[Hg] Dr. Jose Hyde MD Work Phone: 5(547)067-948155 [place] [address] 10-15-2024 16:54-0400 Heart rate 76 /min Dr. Jose Hyde MD Work Phone: 8(543)095-811255 [place] [address] 10-15-2024 16:54-0400 Respiratory rate 16 /min Dr. Jose Hyde MD Work Phone: 9(264)508-166055 [place] [address] 10-15-2024 16:54-0400 SaO2% (BldA) [Mass fraction] 98 % Dr. Jose Hyde MD Work Phone: 7(797)879-283855 [place] [address] 10-15-2024 16:54-0400 Systolic blood pressure 131 mm[Hg] Dr. Jose Hyde MD Work Phone: 4(668)980-525955 [place] [address] 10-15-2024 13:40-0400 Body mass index (BMI) [Ratio] 14.6 kg/m2 Dr. Jose Hyde MD Work Phone: [facility] 10-15-2024 13:40-0400 Body weight 38.[address] Jose Hyde MD Work Phone: [facility] 08-15-2024 13:30-0500 Body mass index (BMI) [Ratio] 16.59 kg/m2 Vlad Pyle SYSTEMS PROGRAMMER ANALYST.WATCH ASSEMBLY INSPECTOR Work Phone: [facility] 08-15-2024 13:30-0500 Body weight 43 kg Vlad Pyle SYSTEMS PROGRAMMER ANALYST.WATCH ASSEMBLY INSPECTOR Work Phone: [facility] 08-15-2024 13:30-0500 Diastolic blood pressure 69 mm[Hg] Vlad Pyle SYSTEMS PROGRAMMER ANALYST.WATCH ASSEMBLY INSPECTOR Work Phone: [facility] 08-15-2024 13:30-0500 Heart rate 70 /min Vlad Pyle SYSTEMS PROGRAMMER ANALYST.WATCH ASSEMBLY INSPECTOR Work Phone: [facility] 08-15-2024 13:30-0500 Respiratory rate 16 /min Vlad Pyle SYSTEMS PROGRAMMER ANALYST.WATCH ASSEMBLY INSPECTOR Work Phone: [facility] 08-15-2024 13:30-0500 Systolic blood pressure 113 mm[Hg] Vlad Pyle SYSTEMS PROGRAMMER ANALYST.WATCH ASSEMBLY INSPECTOR Work Phone: [facility] 06-05-2024 08:34-0500 Body height 161 cm Mehdi Rick MD Work Phone: [facility] 06-05-2024 08:34-0500 Body mass index (BMI) [Ratio] 16.62 kg/m2 Mehdi Rick MD Work Phone: [facility] 06-05-2024 08:34-0500 Body weight 43.09 kg Mehdi Rick MD Work Phone: [facility] 06-05-2024 08:34-0500 Diastolic blood pressure 80 mm[Hg] Mehdi Rick MD Work Phone: [facility] 06-05-2024 08:34-0500 Heart rate 68 /min Mehdi Rick MD Work Phone: [facility] 06-05-2024 08:34-0500 Respiratory rate 16 /min Mehdi Rick MD Work Phone: [facility] 06-05-2024 08:34-0500 Systolic blood pressure 122 mm[Hg] Mehdi Rick MD Work Phone: [facility] 05-22-2024 17:51-0500 Body mass index (BMI) [Ratio] 16.57 kg/m2 Marilyn Athy PA-C Work Phone: [facility] 05-22-2024 17:51-0500 Body temperature 97.59 [degF] Marilyn Athy PA-C Work Phone: [facility] 05-22-2024 17:51-0500 Body weight 43.8 kg Marilyn Athy PA-C Work Phone: [facility] 05-22-2024 17:51-0500 Diastolic blood pressure 70 mm[Hg] Marilyn Athy PA-C Work Phone: [facility] 05-22-2024 17:51-0500 Heart rate 70 /min Marilyn Athy PA-C Work Phone: [facility] 05-22-2024 17:51-0500 Respiratory rate 16 /min Marilyn Athy PA-C Work Phone: [facility] 05-22-2024 17:51-0500 SaO2% (BldA) [Mass fraction] 96 % Marilyn Athy PA-C Work Phone: [facility] 05-22-2024 17:51-0500 Systolic blood pressure 102 mm[Hg] Marilyn Athy PA-C Work Phone: [facility] 05-13-2024 10:53-0500 Body mass index (BMI) [Ratio] 16.61 kg/m2 Jose Hyde MD Work Phone: [facility] 05-13-2024 10:53-0500 Body weight 43.9 kg Jose yHde MD Work Phone: [facility] 05-13-2024 10:53-0500 Diastolic blood pressure 78 mm[Hg] Jose Hyde MD Work Phone: [facility] 05-13-2024 10:53-0500 Heart rate 64 /min Jose Hyde MD Work Phone: [facility] 05-13-2024 10:53-0500 Respiratory rate 16 /min Jose Hyde MD Work Phone: [facility] 05-13-2024 10:53-0500 SaO2% (BldA) [Mass fraction] 97 % Jose Hyde MD Work Phone: [facility] 05-13-2024 10:53-0500 Systolic blood pressure 132 mm[Hg] Jose Hyde MD Work Phone: [facility] 04-29-2024 07:11-0500 Diastolic blood pressure 74 mm[Hg] Vlad Pyle SYSTEMS PROGRAMMER ANALYST.WATCH ASSEMBLY INSPECTOR Work Phone: [facility] 04-29-2024 07:11-0500 Heart rate 81 /min Vlad Pyle SYSTEMS PROGRAMMER ANALYST.WATCH ASSEMBLY INSPECTOR Work Phone: [facility] 04-29-2024 07:11-0500 Systolic blood pressure 135 mm[Hg] Vlda Pyle SYSTEMS PROGRAMMER ANALYST.WATCH ASSEMBLY INSPECTOR Work Phone: [facility] 04-29-2024 07:08-0500 Body mass index (BMI) [Ratio] 16.88 kg/m2 Vlad Pyle SYSTEMS PROGRAMMER ANALYST.WATCH ASSEMBLY INSPECTOR Work Phone: [facility] 04-29-2024 07:08-0500 Body weight 44.6 kg Vlad Pyle SYSTEMS PROGRAMMER ANALYST.WATCH ASSEMBLY INSPECTOR Work Phone: [facility] 04-29-2024 07:08-0500 Respiratory rate 16 /min Vlad Pyle SYSTEMS PROGRAMMER ANALYST.WATCH ASSEMBLY INSPECTOR Work Phone: [facility] 10-16-2023 14:19-0400 Body mass index (BMI) [Ratio] 16.65 kg/m2 Romina Chao SYSTEMS PROGRAMMER ANALYST.BARREL RIBS SOLDERER Work Phone: [facility] 10-16-2023 14:19-0400 Body weight 44 kg Romina Jeremie SYSTEMS PROGRAMMER ANALYST.BARREL RIBS SOLDERER Work Phone: [facility] 10-16-2023 14:19-0400 Diastolic blood pressure 70 mm[Hg] Romina Jeremie SYSTEMS PROGRAMMER ANALYST.BARREL RIBS SOLDERER Work Phone: [facility] 10-16-2023 14:19-0400 Heart rate 70 /min Romina Jeremie SYSTEMS PROGRAMMER ANALYST.BARREL RIBS SOLDERER Work Phone: [facility] 10-16-2023 14:19-0400 SaO2% (BldA) [Mass fraction] 96 % Romina Jeremie SYSTEMS PROGRAMMER ANALYST.BARREL RIBS SOLDERER Work Phone: [facility] 10-16-2023 14:19-0400 Systolic blood pressure 130 mm[Hg] Romina Jeremie SYSTEMS PROGRAMMER ANALYST.BARREL RIBS SOLDERER Work Phone: [facility] 05-01-2023 13:47-0500 Body temperature 96.3 [degF] Romina Jeremie SYSTEMS PROGRAMMER ANALYST.BARREL RIBS SOLDERER Work Phone: [facility] 05-01-2023 13:47-0500 Body weight 44.63 kg Romina Jeremie SYSTEMS PROGRAMMER ANALYST.BARREL RIBS SOLDERER Work Phone: [facility] 05-01-2023 13:47-0500 Diastolic blood pressure 70 mm[Hg] Romina Jeremie SYSTEMS PROGRAMMER ANALYST.BARREL RIBS SOLDERER Work Phone: [facility] 05-01-2023 13:47-0500 Heart rate 53 /min Romina Jeremie SYSTEMS PROGRAMMER ANALYST.BARREL RIBS SOLDERER Work Phone: [facility] 05-01-2023 13:47-0500 Respiratory rate 18 /min Romina Jeremie SYSTEMS PROGRAMMER ANALYST.BARREL RIBS SOLDERER Work Phone: [facility] 05-01-2023 13:47-0500 SaO2% (BldA) [Mass fraction] 97 % Romina Jeremie SYSTEMS PROGRAMMER ANALYST.BARREL RIBS SOLDERER Work Phone: [facility] 05-01-2023 13:47-0500 Systolic blood pressure 116 mm[Hg] Romina Jeremie SYSTEMS PROGRAMMER ANALYST.BARREL RIBS SOLDERER Work Phone: [facility] 03-28-2023 13:32-0400 Body temperature 98.4 [degF] Jose Hyde MD Work Phone: [facility] 03-28-2023 13:32-0400 Body weight 46.27 kg Jose Hyde MD Work Phone: [facility] 03-28-2023 13:32-0400 Diastolic blood pressure 66 mm[Hg] Jose Hyde MD Work Phone: [facility] 03-28-2023 13:32-0400 Heart rate 52 /min Jose Hyde MD Work Phone: [facility] 03-28-2023 13:32-0400 Respiratory rate 18 /min Jose Hyde MD Work Phone: [facility] 03-28-2023 13:32-0400 SaO2% (BldA) [Mass fraction] 96 % Jose Hyde MD Work Phone: [facility] 03-28-2023 13:32-0400 Systolic blood pressure 116 mm[Hg] Jose Hyde MD Work Phone: [facility] 01-25-2023 16:15-0400 Body height 162.56 cm [facility] 08-22-2022 15:14-0500 Body weight 51.26 kg Zhanna Tracy APRN.BARREL RIBS SOLDERER Work Phone: [facility] 08-22-2022 15:14-0500 Diastolic blood pressure 68 mm[Hg] Zhanna Tracy APRN.BARREL RIBS SOLDERER Work Phone: [facility] 08-22-2022 15:14-0500 Heart rate 65 /min Zhanna Tracy APRN.BARREL RIBS SOLDERER Work Phone: [facility] 08-22-2022 15:14-0500 Respiratory rate 18 /min Zhanna Tracy APRN.BARREL RIBS SOLDERER Work Phone: [facility] 08-22-2022 15:14-0500 SaO2% (BldA) [Mass fraction] 97 % Zhanna Tracy APRN.BARREL RIBS SOLDERER Work Phone: [facility] 08-22-2022 15:14-0500 Systolic blood pressure 118 mm[Hg] Zhanna Olga SYSTEMS PROGRAMMER ANALYST.BARREL RIBS SOLDERER Work Phone: [facility] 06-29-2022 17:36-0500 Body temperature 96.8 [degF] Jose Hyde MD Work Phone: [facility] 06-29-2022 17:36-0500 Body weight 52.16 kg Jose Hyde MD Work Phone: [facility] 06-29-2022 17:36-0500 Diastolic blood pressure 74 mm[Hg] Jose Hyde MD Work Phone: [facility] 06-29-2022 17:36-0500 Heart rate 65 /min Jose Hyde MD Work Phone: [facility] 06-29-2022 17:36-0500 Respiratory rate 18 /min Jose Hyde MD Work Phone: [facility] 06-29-2022 17:36-0500 SaO2% (BldA) [Mass fraction] 95 % Jose Hyde MD Work Phone: [facility] 06-29-2022 17:36-0500 Systolic blood pressure 128 mm[Hg] Jose Hyde MD Work Phone: [facility] 01-31-2022 15:14-0400 Body weight 56.25 kg Zhanna Tracy SYSTEMS PROGRAMMER ANALYST.BARREL RIBS SOLDERER Work Phone: [facility] 01-31-2022 15:14-0400 Diastolic blood pressure 72 mm[Hg] Zhanna Olga SYSTEMS PROGRAMMER ANALYST.BARREL RIBS SOLDERER Work Phone: [facility] 01-31-2022 15:14-0400 Heart rate 70 /min Zhanna Olga SYSTEMS PROGRAMMER ANALYST.BARREL RIBS SOLDERER Work Phone: [facility] 01-31-2022 15:14-0400 Systolic blood pressure 138 mm[Hg] Zhanna Olga SYSTEMS PROGRAMMER ANALYST.BARREL RIBS SOLDERER Work Phone: [facility] 03-20-2017 08:04-0400 BMI (Body Mass Index) 23.17 [...] Date Encounter Type Care Provider Facility Start: 12-03-2024 End: 12-03-2024 Telephone encounter Jose Hyde MD Work Phone: [facility] Comment on above: Insurance Authorizat ion Start: 12-03-2024 End: 12-03-2024 Office outpatient visit 25 minutes Vlad Pyle APRN.CNS Work Phone: [facility] [place] Comment on above: Chronic diarrhea (Pr imary Dx); Irritable bowel syndrome without diarrhea; Biliary stricture (HCC) Start: 12-03-2024 End: 12-03-2024 [facility] Facility:[facility] Start: 11-12-2024 End: 11-12-2024 [facility] Facility:[facility] Start: 11-05-2024 End: 11-05-2024 Office outpatient visit 40 minutes Jose Hyde MD Work Phone: [facility] [place] Comment on above: Persistent depressiv e disorder (Primary Dx); Anxiety; History of bipolar disorder; Chronic diarrhea; Weight loss, unintentional; Generalized pain; Marital stress Start: 11-05-2024 End: 11-05-2024 [facility] JOSE HYDE Facility:[facility] Start: 10-24-2024 Non-patient / Non-visit Dr. Monico Patterson MD [facility] [facility] Work Phone: Start: 10-23-2024 Non-patient / Non-visit Dr. Monico Patterson MD [facility] [facility] Work Phone: Start: 10-22-2024 End: 10-22-2024 ambulatory Mango Cornejo Facility:[facility] Start: 10-22-2024 Non-patient / Non-visit [place] [facility] Start: 10-22-2024 Non-patient / Non-visit Dr. Monico Patterson MD [facility] Work Phone: Start: 10-21-2024 ambulatory Mango Cornejo Facil ty:[facility] Start: 10-21-2024 End: 10-24-2024 Evaluation and management of inpatient Dr. Monico Patterson MD -Progressive Care Unit Work Phone: Start: 10-15-2024 End: 10-15-2024 Emergency department patient visit Dr. Jose Hyde MD Work Phone: -Emergency Department Work Phone: Start: 10-15-2024 End: 10-15-2024 Emergency department patient visit Dr. Mick Mejias MD -Emergency Department Work Phone: Start: 10-15-2024 End: 10-15-2024 Patient encounter procedure Kee Trimble SYSTEMS PROGRAMMER ANALYST.BARREL RIBS SOLDERER Work Phone: [facility] Comment on above: Procedure not radha d out (Primary Dx) Start: 10-15-2024 End: 10-15-2024 ambulatory JOSE HYDE Facility:[facility] Start: 08-26-2024 End: 08-26-2024 Telephone encounter Jose Hyde MD Work Phone: [facility] Comment on above: Forms Start: 08-15-2024 End: 08-15-2024 ambulatory [facility] Facility:[facility] Start: 08-15-2024 End: 08-15-2024 Office outpatient visit 25 minutes Vlad Pyle SYSTEMS PROGRAMMER ANALYST.WATCH ASSEMBLY INSPECTOR Work Phone: [facility] Comment on above: Memory impairment (P rimary Dx); History of bipolar disorder; Persistent depressive disorder; Essential hypertension; Mixed hyperlipidemia; Acquired hypothyroidism; CAD (coronary artery disease), [place] coronary artery; Recurrent cold sores; Rash and nonspecific skin eruption Start: 08-07-2024 End: 08-09-2024 Telephone encounter Jose Hyde MD Work Phone: [facility] Comment on above: Forms Start: 07-18-2024 End: 07-19-2024 Refill Jose Hyde MD Work Phone: [facility] Comment on above: Refill Request Start: 06-05-2024 End: 06-05-2024 ambulatory MEHDI RICK Facility:[facility] Start: 06-05-2024 End: 06-05-2024 [facility] Start: 06-05-2024 End: 06-05-2024 Patient encounter procedure Mehdi Rick MD Work Phone: Geriatrics Comment on above: Bipolar depression ( HCC) (Primary Dx); Memory deficit; Cognitive impairment, mild, so stated; Weight loss Start: 05-22-2024 End: 05-22-2024 ambulatory JOSE HYDE Facility:[facility] Start: 05-22-2024 End: 05-22-2024 Patient encounter procedure Marilyn Arechiga PA-C Work Phone: [facility] Comment on above: COVID-19 (Primary Dx ) Start: 05-22-2024 End: 05-22-2024 Telephone encounter Jose Hyde MD Work Phone: [facility] Comment on above: Future Appointment Start: 05-13-2024 End: 05-13-2024 Subsequent hospital visit by physician [facility] Comment on above: Encounter for screen ing mammogram for breast cancer [Z12.31] Start: 05-13-2024 End: 05-13-2024 ambulatory [facility] Facility:[facility] Start: 05-13-2024 End: 05-13-2024 Office outpatient visit 25 minutes Jose Hyde MD Work Phone: [facility] Comment on above: Anxiety reaction (Pr imary Dx); Hx of blurred vision; Memory impairment; Vitamin D deficiency; IFG (impaired fasting glucose); Encounter for long-term current use of medication; Mixed hyperlipidemia; Essential hypertension; Acquired hypothyroidism; 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; Anxiety; Weight loss; Hypokalemia; Persistent depressive disorder; 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; Bipolar disorder, current episode depressed, mild or moderate severity, unspecified (HCC) Start: 04-29-2024 End: 04-29-2024 Telephone encounter Jose Hyde MD Work Phone: [address] [place] [address] Start: 04-29-2024 End: 04-29-2024 ambulatory [facility] Facility:[facility] Start: 04-29-2024 End: 04-29-2024 Office outpatient visit 25 minutes Vlad Edenilson PIERREWATCH ASSEMBLY INSPECTOR Work Phone: [facility] Comment on above: Memory deficit (Prim marc Dx); Persistent depressive disorder; History of bipolar disorder; Essential hypertension; Encounter for screening mammogram for breast cancer; Encounter for immunization Start: 04-07-2024 End: 04-08-2024 Emergency department patient visit Jose Hyde Facility:[facility] Start: 03-19-2024 End: 03-20-2024 Refill Jose Hyde MD Work Phone: [facility] Comment on above: Refill Request Start: 03-13-2024 End: 03-13-2024 Telephone encounter Jose Hyde MD Work Phone: [facility] Comment on above: Forms ([facility] Compliant Physician Authorization form) Start: 01-18-2024 Refill Jose castaneda MD Work Phone: [facility] [place] Comment on above: Refill Request Start: 01-15-2024 Telephone encounter Jose ang MD Work Phone: [facility] Comment on above: Forms Start: 01-10-2024 Telephone encounter Jose ang MD Work Phone: [facility] [place] Comment on above: DME Co requesting pt information Start: 12-20-2023 Refill Jose castaneda MD Work Phone: [facility] [place] Comment on above: Refill Request Start: 11-24-2023 Refill Jose castaneda MD Work Phone: [facility] Comment on above: Refill Request Start: 10-17-2023 Telephone encounter Romina palmer APRN.CNP Work Phone: [facility] Comment on above: Results Start: 10-16-2023 End: 10-16-2023 Patient encounter procedure Romina Chao APRN.BARREL RIBS SOLDERER Work Phone: [facility] [place] Comment on above: Chronic diastolic CH F (congestive heart failure) (HCC) (Primary Dx); Acquired hypothyroidism; Anxiety; Stress at home; Weight loss; Mixed hyperlipidemia; Iron deficiency anemia, unspecified iron deficiency anemia type; Vitamin D deficiency; Encounter for therapeutic drug monitoring Start: 10-12-2023 Refill Jose castaneda MD Work Phone: [facility] Comment on above: Refill Request Start: 09-19-2023 Refill Jose castaneda MD Work Phone: [facility] [place] Comment on above: Refill Request Start: 08-17-2023 Refill Jose castaneda MD Work Phone: [facility] [place] Comment on above: Refill Request Start: 05-01-2023 Documentation procedure Mammog fco Coordinator [facility] Start: 05-01-2023 Letter encounter Mammography Coordinator [facility] Department Start: 05-01-2023 End: 05-01-2023 Patient encounter procedure Romina Chao SYSTEMS PROGRAMMER ANALYST.BARREL RIBS SOLDERER Work Phone: [facility] [place] Comment on above: Weight loss (Primary Dx); Anxiety; Stress at home Start: 04-28-2023 End: 04-28-2023 Subsequent hospital visit by physician [facility] Comment on above: Encounter for screen ing mammogram for breast cancer [Z12.31] Start: 04-18-2023 Telephone encounter Jose ang MD Work Phone: [facility] Comment on above: Mammogram Order Start: 03-28-2023 End: 03-28-2023 Office outpatient visit 40 minutes Jose Hyde MD Work Phone: [facility] [place] Comment on above: Essential hypertensi on (Primary Dx); Vitamin D deficiency; Elevated fasting glucose; Mixed hyperlipidemia; Acquired hypothyroidism; Bipolar affective disorder, remission status unspecified (HCC) Start: 01-25-2023 End: 01-25-2023 Patient encounter procedure [facility] Work Phone: Start: 01-25-2023 End: 01-25-2023 Refill Vlad Pyle APRN.WATCH ASSEMBLY INSPECTOR Work Phone: [facility] Comment on above: Refill Request Start: 12-22-2022 Telephone encounter Kee Coburn MD Work Phone: [facility] Comment on above: Appointment ([facility]) Start: 10-11-2022 Telephone encounter Zhanna Tracy APRN.BARREL RIBS SOLDERER Work Phone: Cardiology Comment on above: Results Start: 10-10-2022 End: 10-10-2022 Nursing evaluation of patient and report Nurse [facility] Work Phone: Cardiology Comment on above: Screening for ischem ic heart disease (Primary Dx) Start: 09-19-2022 Refill Jose castaneda MD Work Phone: [facility] [place] Comment on above: Refill Request Start: 08-25-2022 Refill Jose castaneda MD Work Phone: [facility] [place] Comment on above: Refill Request Start: 08-22-2022 End: 08-22-2022 Patient encounter procedure Zhanna Tracy APRN.BARREL RIBS SOLDERER Work Phone: Cardiology Comment on above: Coronary artery dise ase involving ton[place] coronary artery of [place] heart with angina pectoris (HCC) (Primary Dx); 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; Mixed hyperlipidemia; Essential hypertension; Chronic diastolic CHF (congestive heart failure) (HCC); PAD (peripheral artery disease) (HCC); Tobacco use Start: 07-26-2022 Refill Jose castaneda MD Work Phone: [facility] [place] Comment on above: Insurance Authorizat ion Start: 06-29-2022 End: 06-29-2022 Office outpatient visit 25 minutes Jose Hyde MD Work Phone: [facility] Comment on above: Coronary artery dise ase involving ton[place] coronary artery of ton[place] heart without angina pectoris; Recurrent cold sores; Loose stools; Diarrhea; IRRITABLE COLON Start: 05-20-2022 Refill Jose castaneda MD Work Phone: [facility] Comment on above: Refill Request Start: 04-14-2022 Documentation procedure Mammog fco Coordinator [facility] Start: 04-14-2022 Letter encounter Mammography Coordinator [facility] Department Start: 03-30-2022 ambulatory Jose castaneda MD Work Phone: Internal Medicine [facility] [place] Start: 02-15-2022 Refill Jose castaneda MD Work Phone: [facility] [place] Comment on above: Refill Request Start: 01-31-2022 End: 01-31-2022 Patient encounter procedure Zhanna Tracy ALEJANDRA.BARREL RIBS SOLDERER Work Phone: Cardiology Comment on above: Coronary artery dise ase involving ton[place] coronary artery of [place] heart without angina pectoris (Primary Dx); Mixed hyperlipidemia; Essential hypertension; Chronic diastolic CHF (congestive heart failure) (HCC); Mitral valve insufficiency, unspecified etiology; Tobacco use Start: 11-19-2021 Refill Jose castaneda MD Work Phone: [facility] Comment on above: Prescription Refills Start: 11-01-2021 Telephone encounter Marhsall Plascencia MD Work Phone: General Surgery Comment on above: Patient Update (refe rral to Dr Scott) Start: 10-16-2021 ambulatory Marshall marino MD Work Phone: General Surgery Comment on above: Question for DR. David del toro Start: 10-11-2021 End: 10-11-2021 Subsequent hospital visit by physician [facility] Comment on above: Abdominal mass, unsp ecified abdominal location [R19.00] Start: 09-24-2021 Refill Jose castaneda MD Work Phone: [facility] [place] Comment on above: Refill Request Start: 09-09-2021 Telephone encounter Isabela Dupree APRN.BARREL RIBS SOLDERER Work Phone: [facility] Cardiology [place] Comment on above: Results Start: 11-23-2017 Ambulatory STANISLAW WILSON) Domenic CASSIE [facility] Procedures Date Procedure Procedure Detail Performing Clinician Start: 11-12-2024 Lipid 1996 panel - Serum or Plasma Jose Hyde MD Work Phone: Start: 10-24-[address] Jose Hyde MD Work Phone: Start: 10-23-[address] Jose Hyde MD Work Phone: Start: 10-23-2024 Serum inorganic phosphate measurement Dr. Jose Hyde MD Work Phone: Start: 10-23-2024 Vitamin D, 25-hydroxy measurement Dr. Jose Hyde MD Work Phone: Comment on above: Vitamin D StatusDeficiency: <20 ng/mL (5 0nmol/L)Insufficiency: 20-30 ng/mL (50-75 nmol/L)Sufficiency: 30-100 ng/mL (75-250 nmol/L)Toxicity: >100 ng/mL (>250 nmol/L) Start: 10-23-2024 Iadna-dna/rna gi pthgn multiplex probe tq 6-11 Dr. Jose Hyde MD Work Phone: Start: 10-22-2024 Antibody to centromere measurement Dr. Jose Hyde MD Work Phone: Start: 10-22-2024 Antibody to extractable nuclear antigen measurement Dr. Jose Hyde MD Work Phone: Comment on above: Previous reported result: TNP AIEdited b y: INFCE on 10/24/24:0908 AMENDED REPORT 10/24/24 0908 DE [place] Ab previously reported as: Test not performed Start: 10-22-2024 Antibody to KATHRINE-[address] Jose kwan MD Work Phone: Comment on above: Previous reported result: TNP AIEdited b y: INFCE on 10/24/24:0908 AMENDED REPORT 10/24/24 0908 ANTI-KATHRINE previously reported as: Test not performed Start: 10-22-2024 Antibody to lupus La protein measurement Dr. Jose Hyde MD Work Phone: Comment on above: Previous reported result: TNP AIEdited b y: INFCE on 10/24/24:0908 AMENDED REPORT 10/24/24 0908 Anti-SS-B previously reported as: Test not performed Start: 10-22-2024 Antibody to SS-A measurement Dr. Jose kwan MD Work Phone: Comment on above: Previous reported result: TNP AIEdited b y: INFCE on 10/24/24:0908 AMENDED REPORT 10/24/24 0908 Anti-SS-A previously reported as: Test not performed Start: 10-22-[address] Jose ascencio MD Work Phone: Comment on above: Previous reported result: TNP AIEdited b y: INFCE on 10/24/24:0908 AMENDED REPORT 10/24/24 0908 ANTICHROMATIN previously reported as: Test not performed Start: 10-22-2024 COMMODITY MANAGER antibody measurement Dr. Jose ascencio MD Work Phone: Comment on above: Previous reported result: TNP AIEdited b y: INFCE on 10/24/24:0908 AMENDED REPORT 10/24/24 09 COMMODITY MANAGER Ab previously reported as: Test not performed Start: 10-22-[address] Jose Hyde MD Work Phone: Start: 10-22-[address] Jose Hyde MD Work Phone: Start: 10-22-[address] Jose Hyde MD Work Phone: Start: 10-22-[address] Jose Hyde MD Work Phone: Start: 10-21-2024 Urnls dip stick/tablet reagent auto microscopy Dr. Jose Hyde MD Work Phone: Start: 10-21-2024 X-ray of chest, PA and lateral views Dr. Jose Hyde MD Work Phone: Start: 10-21-[address] Jose Hyde MD Work Phone: Start: 10-21-2024 Computed tomography of abdomen and pelvis with intravenous contrast Dr. Jose Hyde MD Work Phone: Start: 08-15-2024 Lipid 1996 panel - Serum or Plasma Jose Hyde MD Work Phone: Start: 10-16-2023 Adult depression screening assessment Jose Hyde MD Work Phone: Start: 07-17-2023 Lipid 1996 panel - Serum or Plasma Jose Hyde MD Work Phone: Start: 07-26-2022 Lipid 1996 panel - Serum or Plasma Jose Hyde MD Work Phone: Start: 04-13-2022 Mammography Mammography Coordinator Start: 10-11-2021 Ct abdomen & pelvis w/o contrast material Marshall Plascencia MD Work Phone: Start: 02-26-2021 Mammography Isabela Dupree APRN.[employer] Work Phone: Start: 12-17-2020 Adult depression screening assessment Isabela Dupree APRN.[employer] Work Phone: Start: 03-19-2020 Colonoscopy Isabela Dupree APRN.[employer] Work Phone: Start: 03-20-2017 End: 03-20-2017 Follow Up Appt 6 months John Santiago NP Work Phone: Start: 03-20-2017 End: 03-20-2017 PFM John Santiago AWS DEVELOPER Work Phone: Start: 08-30-2016 End: 08-30-2016 Ecg routine ecg w/least 12 lds w/i&r Penelope Koenig PA-C Work Phone: Start: 08-30-2016 End: 08-30-2016 Follow Up Appt 6 months Penelope Koenig PA-C Work Phone: Start: 08-30-2016 End: 08-30-2016 PFM Penelope Koenig PA-C Work Phone: Start: 02-29-2016 End: 02-29-2016 Follow Up Appt 6 months Sergio White MD Start: 02-29-2016 End: 08-25-2016 Follow Up Appt Other Sergio White MD Start: 02-29-2016 End: 02-29-2016 MMM Sergio White MD Start: 08-11-2015 End: 08-20-2015 *Hepatic Function Panel Penelope Koenig PA-C Work Phone: Start: 08-11-2015 End: 08-21-2015 Arterial exam Penelope Koenig PA-C Work Phone: Start: 08-11-2015 End: 08-11-2015 Follow Up Appt 6 months Penelope Koenig PA-C Work Phone: Start: 08-11-2015 End: 08-20-2015 [...] 08-25-2016 Follow Up Appt 6 months Penelope Koenig PA-C Work Phone: Start: 06-30-2014 End: 08-25-2016 Follow Up Appt Other Penelope Koenig PA-C Work Phone: Start: 06-30-2014 End: 08-25-2016 PFM Penelope Koenig PA-C Work Phone: Start: 01-01-2014 End: 01-16-2014 *BMP Sergio White MD Start: 01-01-2014 End: 01-01-2014 Follow Up Appt 6 months Sergio White MD Start: 01-01-2014 End: 08-25-2016 Follow Up Appt Other Sergio White MD Start: 01-01-2014 End: 01-01-2014 MMM Sergio White MD Start: 07-18-2013 End: 07-18-2013 Follow Up Appt Other Penelope Koenig PA-C Work Phone: Start: 03-29-2013 End: 07-04-2013 Arterial exam Penelope Koenig PA-C Work Phone: Start: 03-29-2013 End: 03-29-2013 Follow Up Appt 3 months Penelope Koenig PA-C Work Phone: Start: 03-29-2013 End: 03-29-2013 Follow Up Appt 6 months Penelope Koenig PA-C Work Phone: Start: 03-29-2013 [...] End: 12-17-2012 Nuclear stress test -exercise Sergio ba MD Start: 10-19-2012 End: 10-19-2012 Follow Up Appt Other Penelope Koenig PA-C Work Phone: Start: 10-19-2012 End: 10-19-2012 [...] Sergio White MD Start: 08-31-2012 End: 09-27-2012 NEWTON White MD Start: 08-31-2012 End: 09-27-2012 PFAntwon White MD Start: 08-16-2012 End: 09-27-2012 Arterial exam Sergio White MD Start: 08-08-2012 Percutaneous transluminal coronary angioplasty CORONARY ARTERY DISEASE, S/P PTCA Rohan Celeste Start: 07-23-2012 End: 07-23-2012 Nurse Teaching (no charge) Sergio worthy MD Start: 07-12-2012 End: 07-12-2012 Ecg [...] assay Sergio White MD Start: 04-12-2012 End: 09-27-2012 Left Heart Cath Sergio White MD Start: 04-11-2012 Percutaneous transluminal coronary angioplasty PERCUTANEOUS TRANSLUMINAL CORONARY ANGIOPLASTY, HX OF Rohan Celeste Plan of Treatment Date Care Activity Detail Author Start: 11-12-2029 Lipid panel Lipid Screening [facility] Start: 08-15-2029 Lipid panel Lipid Screening [facility] Start: 07-17-2028 Lipid panel Lipid Screening [facility] Start: 07-26-2027 Lipid 1996 panel - Serum or Plasma Lipid Screening [facility] Start: 07-26-2027 LIPID SCREEN LIPID SCREEN [facility] Start: 01-31-2027 LIPID SCREEN LIPID SCREEN [facility] Start: 10-15-2026 Diabetes Screening Diabetes Screening [facility] Start: 07-17-2026 Diabetes Screening Diabetes Screening [facility] Start: 05-28-2026 LIPID SCREEN LIPID SCREEN [facility] Start: 03-28-2026 Diabetes Screening Diabetes Screening [facility] Start: 11-12-2025 Hepatitis B surface antibody level LDL Cholesterol [facility] Start: 11-05-2025 Annual PCP Team Chronic Disease Visit Annual PCP Team Chronic Disease Visit [facility] Start: 08-15-2025 BP Controlled (<130/80) BP Controlled (<130/80) [facility] Start: 08-15-2025 Hepatitis B surface antibody level LDL Cholesterol [facility] Start: 07-26-2025 DIABETES SCREEN DIABETES SCREEN [facility] Start: 05-22-2025 BP Controlled (<130/80) BP Controlled (<130/80) [facility] Start: 05-13-2025 Annual PCP Team Chronic Disease Visit Annual PCP Team Chronic Disease Visit [facility] Start: 05-13-2025 Covid-19 Vaccine ( season) Covid-19 Vaccine ( season) [facility] Comment on above: Postponed from 02/18/2024 (Declined at t his time) Start: 05-13-2025 Screening for malignant neoplasm of breast Mammogram Screening [facility] Start: 04-29-2025 BP Controlled (<130/80) BP Controlled (<130/80) [facility] Start: 03-19-2025 Colonoscopy COLONOSCOPY [facility] Start: 03-19-2025 COLORECTAL CANCER SCREENING COLORECTAL CANCER SCREENING [facility] Start: 03-19-2025 Screening for malignant neoplasm of colon [facility] Start: 03-03-2025 End: 03-03-2025 Patient encounter procedure 03/03/2025 11:00 AM EDT Office Visit [facility] [address] [place] [address] Jose Hyde MD [address] [place] [address] 3 month f/u [facility] [place] Comment on above: 3 month f/u Start: 01-31-2025 DIABETES SCREEN DIABETES SCREEN [facility] Start: 01-02-2025 End: 01-02-2025 Patient encounter procedure 01/02/2025 1:40 PM EDT Office Visit [facility] [address] [place] [address] Vlad Pyle APRN.WATCH ASSEMBLY INSPECTOR [address] [place] [address] 1 month follow up BP check [facility] [place] Comment on above: 1 month follow up BP check Start: 12-10-2024 End: 12-10-2024 Patient encounter procedure 12/10/2024 6:20 PM EDT Office Visit [facility] [place] [address] [place] [address] Jose Hyde MD [address] [place] [address] 5 weeks follow up anxiety [facility] Comment on above: 5 weeks follow up anxiety Start: 10-28-2024 End: 10-28-2024 Patient encounter procedure 10/28/2024 3:40 PM EDT Office Visit [facility] [address] [place] [address] Jose Hyde MD [address] [place] [address] 3 month f/u [facility] Comment on above: 3 month f/u Start: 10-24-2024 Patient discharge [facility] Start: 10-23-2024 Vitamin D, 1,25-dihydroxy measurement [facility] Start: 10-22-[address] [facility] Start: 10-22-2024 Laboratory test [facility] Start: 10-22-2024 Procedure [facility] Start: 10-22-2024 Serum immunofixation [facility] Start: 10-22-2024 End: 10-22-2024 [facility] Start: 10-22-2024 Application of intermittent pneumatic compression device [facility] Start: 10-21-2024 Following clinical pathway protocol [facility] Start: 10-21-2024 Aspiration precautions [facility] Start: 10-21-2024 Assessment of risk of venous thromboembolism [facility] Start: 10-21-2024 Documentation procedure [facility] Start: 10-21-2024 Insertion of catheter into peripheral vein [facility] Start: 10-21-2024 Measuring intake and output [facility] Start: 10-21-2024 Patient referral to dietitian [facility] Start: 10-21-2024 Providing care according to standard [facility] Start: 10-21-2024 Provision of activity privileges [facility] Start: 10-21-2024 Referral to gastroenterology service [facility] Start: 10-21-2024 Referral to service [facility] Start: 10-21-2024 [facility] Start: 10-21-2024 Admission procedure [facility] Start: 10-21-2024 Consultation [facility] Start: 10-21-2024 Patient referral to dietitian [facility] Start: 10-21-2024 [facility] Start: 10-15-2024 End: 10-15-2024 [facility] Start: 10-15-2024 Annual PCP Team Chronic Disease Visit Annual PCP Team Chronic Disease Visit [facility] Start: 10-15-2024 Anxiety Screening Anxiety Screening [facility] Start: 10-15-2024 Depression Screening Depression Screening [facility] Start: 10-15-2024 End: 10-15-2024 Referral to service [facility] Start: 09-12-2024 End: 09-12-2024 Patient encounter procedure 09/12/2024 11:00 AM EDT Office Visit Geriatrics [address] [place] [address] Mehdi Rick MD [address] [place], [place] [address] follow up MRI [facility] Comment on above: follow up MRI Start: 09-05-2024 End: 09-05-2024 Patient encounter procedure 09/05/2024 3:30 PM EDT Office Visit Ger[facility] [address] [place], [place] [address] Mehdi Rick MD [address] [place] [address] follow up MRI [facility] Comment on above: follow up MRI Start: 08-22-2024 End: 08-22-2024 Patient encounter procedure 08/22/2024 3:00 PM EST Appointment [facility] [address] [place], [place] [id number] Cognitive impairment, mild, so stated [G31.84] [facility] Comment on above: Cognitive impairment, mild, so stated [G 31.84] Start: 08-15-2024 End: 11-14-2024 Lipid 1996 panel - Serum or Plasma [facility] Work Phone: Comment on above: Expected: 08/15/2024, Expires: Start: 08-15-2024 End: 11-14-2024 LIPID PANEL, NONFASTING LIPID PANEL, NONFASTING Lab Routine Essential hypertension Mixed hyperlipidemia Expected: 08/15/2024, Expires: 11/14/2024 [facility] Comment on above: Expected: 08/15/2024, Expires: Start: 08-12-2024 End: 08-12-2024 Patient encounter procedure 08/12/2024 12:00 PM EST Office Visit [facility] [place] [address] [place], [place] [address] Vlad Pyle APRN.WATCH ASSEMBLY INSPECTOR [address] [place] [address] 3 mo follow up r/s from 07/30 [facility] Comment on above: 3 mo follow up r/s from 07/30 Start: 07-30-2024 End: 07-30-2024 Patient encounter procedure 07/30/2024 12:00 PM EST Office Visit [facility] [address] [place] [address] Vlad Pyle APRN.WATCH ASSEMBLY INSPECTOR [address] [place] [address] 3 month f/u [facility] Comment on above: 3 month f/u Start: 07-17-2024 BP Controlled (<130/80) BP Controlled (<130/80) [facility] in Start: 07-17-2024 Hepatitis B surface antibody level LDL Cholesterol [facility] Start: 07-03-2024 End: 10-02-2024 25-hydroxyvitamin D3 [Mass/volume] in Serum or Plasma VITAMIN D 25 HYDROXY Lab Routine Vitamin D deficiency Encounter for long-term current use of medication Expected: 07/03/2024 (Approximate), Expires: 10/02/2024 [facility] Comment on above: Expected: 07/03/2024 (Approximate), Expi res: 10/02/2024 Start: 07-03-2024 End: 10-02-2024 CBC panel - Blood by Automated count COMPLETE BLOOD COUNT Lab Routine Encounter for long-term current use of medication Essential hypertension Expected: 07/03/2024 (Approximate), Expires: 10/02/2024 [facility] Comment on above: Expected: 07/03/2024 (Approximate), Expi res: 10/02/2024 Start: 07-03-2024 End: 10-02-2024 Comprehensive metabolic 2000 panel - Serum or Plasma COMPREHENSIVE METABOLIC PANEL Lab Routine IFG (impaired fasting glucose) Encounter for long-term current use of medication Essential hypertension Hypokalemia Expected: 07/03/2024 (Approximate), Expires: 10/02/2024 [facility] Comment on above: Expected: 07/03/2024 (Approximate), Expi res: 10/02/2024 Start: 07-03-2024 End: 10-02-2024 Hemoglobin A1c in Blood HEMOGLOBIN A1C Lab Routine IFG (impaired fasting glucose) Encounter for long-term current use of medication Expected: 07/03/2024 (Approximate), Expires: 10/02/2024 [facility] Work Phone: Comment on above: Expected: 07/03/2024 (Approximate), Expi res: 10/02/2024 Start: 07-03-2024 End: 10-02-2024 Thyrotropin [Units/volume] in Serum or Plasma THYROID STIMULATING HORMONE Lab Routine Acquired hypothyroidism Expected: 07/03/2024 (Approximate), Expires: 10/02/2024 [facility] Comment on above: Expected: 07/03/2024 (Approximate), Expi res: 10/02/2024 Start: 07-03-2024 End: 10-02-2024 Thyroxine (T4) free [Mass/volume] in Serum or Plasma T4 FREE/FREE THYROXINE Lab Routine Acquired hypothyroidism Expected: 07/03/2024 (Approximate), Expires: 10/02/2024 [facility] Comment on above: Expected: 07/03/2024 (Approximate), Expi res: 10/02/2024 Start: 07-03-2024 End: 10-02-2024 Triiodothyronine (T3) Free [Mass/volume] in Serum or Plasma T3, FREE Lab Routine Acquired hypothyroidism Expected: 07/03/2024 (Approximate), Expires: 10/02/2024 [facility] Comment on above: Expected: 07/03/2024 (Approximate), Expi res: 10/02/2024 Start: 06-26-2024 Annual PCP Team Chronic Disease Visit Annual PCP Team Chronic Disease Visit [facility] Start: 06-19-2024 Advance Directive Discussion Advance Directive Discussion [facility] Start: 06-05-2024 End: 09-04-2024 Cobalamin (Vitamin B12) [Mass/volume] in Serum or Plasma [facility] Work Phone: Comment on above: Expected: 06/05/2024, Expires: Start: 06-05-2024 End: 09-04-2024 Methylmalonate [Moles/volume] in Serum or Plasma [facility] Comment on above: Expected: 06/05/2024, Expires: Start: 06-05-2024 End: 06-05-2024 Patient encounter procedure 06/05/2024 8:30 AM EST Office Visit Geriatrics [address] [place], [place] [id number] Mehdi Rick MD [address] [place], [place] [id number] Memory deficit [R41.3] [facility] Comment on above: Memory deficit [R41.3] Start: 05-28-2024 DIABETES SCREEN DIABETES SCREEN [facility] Start: 05-13-2024 End: 05-13-2024 Patient encounter procedure 05/13/2024 2:30 PM EST Appointment Mammogram [address] [place], [place] [id number] Encounter for screening mammogram for breast cancer [Z12.31] Mammogram Comment on above: Encounter for screening mammogram for br east cancer [Z12.31] Start: 05-01-2024 Annual PCP Team Chronic Disease Visit Annual PCP Team Chronic Disease Visit [facility] Start: 05-01-2024 BP Controlled (<130/80) BP Controlled (<130/80) [facility] Start: 04-28-2024 Mammography Mammogram Screening [facility] Start: 04-28-2024 Screening for malignant neoplasm of breast Mammogram Screening [facility] Start: 04-16-2024 End: 04-16-2024 Patient encounter procedure 04/16/2024 2:00 PM EDT Office Visit [facility] [place] [address] [place], [place] [id number] Romina Chao APRN.[employer]DERER [address] [place] [address] 6 month follow up [facility] [place] Comment on above: 6 month follow up Start: 03-28-2024 Annual PCP Team Chronic Disease Visit Annual PCP Team Chronic Disease Visit [facility] Start: 03-28-2024 BP Controlled (<130/80) BP Controlled (<130/80) [facility] in Start: 03-28-2024 Covid-19 Vaccine () Covid-19 Vaccine () [facility] Comment on above: Postponed from 02/17/2023 (Declined at t his time) Start: 02-18-2024 Covid-19 Vaccine () Covid-19 Vaccine () [facility] Start: 02-18-2024 Influenza vaccination Influ[facility] Start: 10-16-2023 End: 10-16-2023 Patient encounter procedure 10/16/2023 2:40 PM EDT Office Visit [facility] [address] [place], [place] [id number] Romina Chao APRN.[employer] SOLDERER [address] [place], [place] [address] Follow Up 6 mo [facility] [place] Comment on above: Follow Up 6 mo Start: 10-16-2023 End: 01-15-2024 25-hydroxyvitamin D3 [Mass/volume] in Serum or Plasma [facility] Comment on above: Expected: 10/16/2023, Expires: Start: 10-16-2023 End: 01-15-2024 Comprehensive metabolic 2000 panel - Serum or Plasma [facility] Work Phone: Comment on above: Expected: 10/16/2023, Expires: Start: 10-16-2023 End: 01-15-2024 Ferritin [Mass/volume] in Serum or Plasma [facility] Comment on above: Expected: 10/16/2023, Expires: Start: 10-16-2023 End: 01-15-2024 Iron and Iron binding capacity panel - Serum or Plasma [facility] Comment on above: Expected: 10/16/2023, Expires: Start: 10-16-2023 End: 01-15-2024 Thyrotropin [Units/volume] in Serum or Plasma [facility] Comment on above: Expected: 10/16/2023, Expires: Start: 10-16-2023 End: 01-15-2024 Thyroxine (T4) free [Mass/volume] in Serum or Plasma [facility] Comment on above: Expected: 10/16/2023, Expires: 4 Start: 10-16-2023 End: 01-15-2024 Triiodothyronine (T3) Free [Mass/volume] in Serum or Plasma [facility] Comment on above: Expected: 10/16/2023, Expires: 4 Start: 08-23-2023 BP CONTROLLED (<130/80) BP CONTROLLED (<130/80) [facility] Start: 07-26-2023 Hepatitis B surface antibody level LDL CHOLESTEROL [facility] Start: 06-29-2023 ANNUAL PCP TEAM CHRONIC DISEASE VISIT ANNUAL PCP TEAM CHRONIC DISEASE VISIT [facility] Start: 06-29-2023 BP CONTROLLED (<130/80) BP CONTROLLED (<130/80) [facility] Start: 06-29-2023 COVID-19 VACCINE (4 - Booster for Moderna series) COVID-19 VACCINE (4 - Booster for Moderna series) [facility] Comment on above: Postponed from 08/27/2021 (Declined at t his time) Start: 06-29-2023 COVID-19 VACCINE (4 - Moderna series) COVID-19 VACCINE (4 - Moderna series) [facility] Comment on above: Postponed from 08/27/2021 (Declined at t his time) Start: 06-29-2023 Urine microalbumin profile [facility] Comment on above: Postponed from 11/14/2021 (Declined at t his time) Start: 06-19-2023 Advance Directive Discussion Advance Directive Discussion [facility] Start: 06-19-2023 Behavioral Health Screening Behavioral Health Screening [facility] Start: 06-19-2023 Depression Assessment Depression Assessment [facility] Start: 04-13-2023 Mammography [facility] Start: 02-17-2023 Influenza vaccination INFLUENZA (#1) [facility] Start: 01-31-2023 Hepatitis B surface antibody level LDL CHOLESTEROL [facility] Start: 12-06-2022 ANNUAL PCP TEAM CHRONIC DISEASE VISIT ANNUAL PCP TEAM CHRONIC DISEASE VISIT [facility] Start: 05-28-2022 Hepatitis B surface antibody level LDL CHOLESTEROL [facility] Start: 05-05-2022 ANNUAL PCP TEAM CHRONIC DISEASE VISIT ANNUAL PCP TEAM CHRONIC DISEASE VISIT [facility] Start: 02-26-2022 Mammography MAMMOGRAM [facility] Start: 02-17-2022 Influenza vaccination INFLUENZA (#1) [facility] Start: 12-17-2021 Adult depression screening assessment DEPRESSION SCREENING [facility] Start: 12-17-2021 BP CONTROLLED (<130/80) BP CONTROLLED (<130/80) [facility] Start: 11-14-2021 Urine microalbumin profile [facility] Start: 10-30-2021 COVID-19 VACCINE (4 - Booster for Moderna series) COVID-19 VACCINE (4 - Booster for Moderna series) [facility] Start: 08-27-2021 COVID-19 VACCINE (4 - Booster for Moderna series) COVID-19 VACCINE (4 - Booster for Moderna series) [facility] Start: 06-19-2021 ADVANCE DIRECTIVE DISCUSSION ADVANCE DIRECTIVE DISCUSSION [facility] Start: 06-19-2021 DEPRESSION ASSESSMENT DEPRESSION ASSESSMENT [facility] Start: 11-27-2017 End: 11-27-2017 Appointment Appointment [facility] Work Phone: Start: 03-20-2017 End: 03-20-2017 24 hour holter monitor 24 hour holter monitor [facility] Work Phone: Start: 03-20-2017 End: 03-20-2017 Echocardiography Echocardiogram (complete) [facility] Work Phone: Start: 03-20-2017 End: 03-20-2017 Follow Up Appt 6 months Follow Up Appt 6 months [facility] Work Phone: Start: 03-20-2017 End: 03-20-2017 PFM PFM [facility] Work Phone: Start: 03-20-2017 End: 03-20-2017 Appointment Appointment [facility] Work Phone: Start: 08-30-2016 End: 08-30-2016 Ecg routine ecg w/least 12 lds w/i&r EKG (In office) [facility] Work Phone: Start: 08-30-2016 End: 08-30-2016 Follow Up Appt 6 months Follow Up Appt 6 months [facility] [employer] Work Phone: Start: 08-30-2016 End: 08-30-2016 PFM PFM [facility] Work Phone: Start: 02-29-2016 End: 02-29-2016 Follow Up Appt 6 months Follow Up Appt 6 months [facility] Work Phone: Start: 02-29-2016 End: 08-25-2016 Follow Up Appt Other Follow Up Appt Other [facility] Work Phone: Start: 02-29-2016 End: 02-29-2016 MMM MMM [facility] Work Phone: Start: 02-22-2016 End: 08-20-2015 *Hepatic Function Panel *Hepatic Function Panel [facility] Work Phone: Start: 02-22-2016 End: 08-20-2015 Lipid 1996 panel *Lipid Profile CC PCP [facility] Work Phone: Start: 08-11-2015 End: 08-20-2015 *Hepatic Function Panel *Hepatic Function Panel [facility] Work Phone: Start: 08-11-2015 End: 08-11-2015 Arterial exam Arterial exam [facility] Work Phone: Start: 08-11-2015 End: 08-11-2015 Follow Up Appt 6 months Follow Up Appt 6 months [facility] Work Phone: Start: 08-11-2015 End: 08-20-2015 Lipid 1996 panel *Lipid Profile CC PCP [facility] Work Phone: Start: 08-11-2015 End: 08-11-2015 PFM PFM [facility] Work Phone: Start: 07-01-2015 End: 08-20-2015 *Hepatic Function Panel *Hepatic Function Panel [facility] Work Phone: Start: 07-01-2015 End: 08-20-2015 Lipid 1996 panel *Lipid Profile CC [facility]CP [facility] Work Phone: Start: 12-29-2014 End: 12-29-2014 *Hepatic Function Panel *Hepatic Function Panel [facility] Work Phone: Start: 12-29-2014 End: 12-29-2014 Follow Up Appt 6 months Follow Up Appt 6 months [facility] Work Phone: Start: 12-29-2014 End: 12-29-2014 Lipid 1996 panel *Lipid Profile CC PCP [facility] Work Phone: Start: 12-29-2014 End: 12-29-2014 MMM MMM [facility] Work Phone: Start: 06-30-2014 End: 08-25-2016 Follow Up Appt 6 months Follow Up Appt 6 months [facility] Work Phone: Start: 06-30-2014 End: 08-25-2016 Follow Up Appt Other Follow Up Appt Other [facility] Work Phone: Start: 06-30-2014 End: 08-25-2016 PFM PFM [facility] Work Phone: Start: 01-01-2014 End: 01-16-2014 *BMP *BMP [facility] Work Phone: Start: 01-01-2014 End: 01-01-2014 Follow Up Appt 6 months Follow Up Appt 6 months [facility] Work Phone: Start: 01-01-2014 End: 08-25-2016 Follow Up Appt Other Follow Up Appt Other [facility] Work Phone: Start: 01-01-2014 End: 01-01-2014 MMM MMM [facility] Work Phone: Start: 07-18-2013 End: 07-18-2013 Follow Up Appt Other Follow Up Appt Other [facility] Work Phone: Start: 03-29-2013 End: 03-29-2013 Arterial exam Arterial exam [facility] Work Phone: Start: 03-29-2013 End: 03-29-2013 Follow Up Appt 3 months Follow Up Appt 3 months [facility] Work Phone: Start: 03-29-2013 End: 03-29-2013 Follow Up Appt 6 months Follow Up Appt 6 months [facility] Work Phone: Start: 03-29-2013 End: 03-29-2013 MMM MMM [facility] Work Phone: Start: 03-29-2013 End: 03-29-2013 PFM PFM [facility] Work Phone: Start: 12-17-2012 End: 03-13-2013 Ecg routine ecg w/least 12 lds w/i&r EKG (In office) [facility] Work Phone: Start: 12-17-2012 End: 12-17-2012 Follow Up Appt 3 months Follow Up Appt 3 months [facility] Work Phone: Start: 12-17-2012 End: 12-17-2012 MMM MMM [facility] Work Phone: Start: 12-17-2012 End: 12-17-2012 Nuclear stress test -exercise Nuclear stress test -exercise [facility] Work Phone: Start: 10-19-2012 End: 10-19-2012 Follow Up Appt Other Follow Up Appt Other [facility] Work Phone: Start: 10-19-2012 End: 10-19-2012 PFM PFM [facility] Work Phone: Start: 08-31-2012 End: 09-27-2012 Cardiac Rehab Cardiac Rehab [facility] Work Phone: Start: 08-31-2012 End: 09-07-2012 Cardiovascular stress test using treadmill Treadmill stress test (no imaging) [facility] Work Phone: Start: 08-31-2012 End: 08-31-2012 Ecg routine ecg w/least 12 lds w/i&r EKG (In office) [facility] Work Phone: Start: 08-31-2012 End: 09-27-2012 Follow Up Appt 3 months Follow Up Appt 3 months [facility] Work Phone: Start: 08-31-2012 End: 09-27-2012 Follow Up Appt 6 weeks Follow Up Appt 6 weeks [facility] Work Phone: Start: 08-31-2012 End: 09-27-2012 MMM MMM [facility] Work Phone: Start: 08-31-2012 End: 09-27-2012 PFM PFM [facility] Work Phone: Start: 08-16-2012 End: 08-16-2012 Arterial exam Arterial exam [facility] Work Phone: Start: 07-12-2012 End: 07-12-2012 Ecg routine ecg w/least 12 lds w/i&r EKG (In office) [facility] Work Phone: Start: 07-12-2012 End: 07-12-2012 Follow Up Appt 3 months Follow Up Appt 3 months [facility] Work Phone: Start: 07-12-2012 End: 07-12-2012 Follow Up Appt Other Follow Up Appt Other [facility] Work Phone: Start: 07-12-2012 End: 07-12-2012 PFM PFM [facility] Work Phone: Start: 04-12-2012 End: 07-25-2012 *BMP *BMP [facility] Work Phone: Start: 04-12-2012 End: 07-25-2012 *CBC with Differential *CBC with Differential [facility] Work Phone: Start: 04-12-2012 End: 07-25-2012 aPTT Coag time (Bld) *PTT-Partial Thromboplastin Time [facility] Work Phone: Start: 04-12-2012 End: 07-18-2012 Chest x-ray X-Ray, Chest, PA & Lateral [facility] Work Phone: Start: 04-12-2012 End: 04-12-2012 Ecg routine ecg w/least 12 lds w/i&r EKG (In office) [facility] Work Phone: Start: 04-12-2012 End: 04-12-2012 Echocardiography Echocardiogram (complete) [facility] Work Phone: Start: 04-12-2012 End: 04-12-2012 Follow Up Appt 3 months Follow Up Appt 3 months [facility] Work Phone: Start: 04-12-2012 End: 07-25-2012 INR Coag RelTime (PPP) *PT/INR [facility] Work Phone: Start: 04-12-2012 End: 04-13-2012 Left Heart Cath Left Heart Cath [facility] Work Phone: Start: 2009 RSV Vaccine (1 - 1-dose 60+ series) RSV Vaccine (1 - 1-dose 60+ series) [facility] Start: 11-17-2006 Medicare Annual Wellness Visit Medicare Annual Wellness Visit [facility] Start: 1994 COLOGUARD (FIT-DNA) COLOGUARD (FIT-DNA) [facility] Start: [address] COLONOGRAPHY [facility] Start: 1994 FECAL OCCULT BLOOD FECAL OCCULT BLOOD [facility] Start: 1994 Screening for malignant neoplasm of colon [facility] Start: 1994 SIGMOIDOSCOPY SIGMOIDOSCOPY [facility] Albumin [Moles/volum e] in Serum or Plasma [facility] Albumin/Globulin ratio [facility] Angiotensin converti ng enzyme [Enzymatic activity/volume] in Serum or Plasma [facility] Cancer Ag 19-9 [Units/volume] in Serum or Plasma [facility] Carcinoembryonic Ag [Mass/volume] in Serum or Plasma [facility] Chitobioside IgA Ab [Units/volume] in Serum or Plasma by Immunoassay [facility] Ct abdomen & pelvis w/o contrast material CT ABD/PEL WO IVCON Radiology Routine Abdominal mass, unspecified abdominal location 10/11/2021 10:54 AM EDT [facility] Work Phone: End: 05-29-2025 DBT Breast - bilateral screening JG SCREENING W HARJIT Radiology Routine Encounter for screening mammogram for breast cancer 1 Occurrences starting 04/29/2024 until 05/29/2025 [facility] Work Phone: Comment on above: 1 Occurrences starting 04/29/2024 until 05/29/2025 DBT Breast - bilater al screening JG SCREENING W HARJIT Radiology Routine Encounter for screening mammogram for breast cancer 05/13/2024 2:39 PM EST [facility] Work Phone: End: 08-19-2023 ECG COMPLETE ECG COMPLETE ECG Routine 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 Mixed hyperlipidemia Essential hypertension 1 Occurrences starting 08/18/2022 until 08/19/2023 [facility] Work Phone: Comment on above: 1 Occurrences starting 08/18/2022 until 08/19/2023 Electrophoresis: [id number] [facility] Electrophoresis: krishna ma globulin [facility] Gliadin peptide IgA Ab [Units/volume] in Serum [facility] Gliadin peptide IgG Ab [Units/volume] in Serum [facility] Globulin measurement [facility] IgA [Mass/volume] in Serum or Plasma [facility] IgE [Units/volume] i n Serum or Plasma [facility] IgG [Mass/volume] in Serum or Plasma [facility] IgG subclass 1 [Mass/volume] in Serum [facility] IgG subclass 2 [Mass/volume] in Serum [facility] IgG subclass 3 [Mass/volume] in Serum [facility] IgG subclass 4 [Mass/volume] in Serum [facility] IgM [Mass/volume] in Serum or Plasma [facility] Laboratory data interpretation [facility] Laminaribioside IgG Ab [Units/volume] in Serum or Plasma by Immunoassay [facility] End: 05-17-2024 JG SCREENING JG SCREENING Radiology Routine Encounter for screening mammogram for breast cancer 1 Occurrences starting 04/19/2023 until 05/17/2024 [facility] Work Phone: Comment on above: 1 Occurrences starting 04/19/2023 until 05/17/2024 JG SCREENING JG SCREENING Ra diology Routine Encounter for screening mammogram for breast cancer 04/28/2023 1:31 PM EST [facility] [employer] Work Phone: Mannobioside IgG Ab [Units/volume] in Serum or Plasma by Immunoassay [facility] Measurement of funga l antibody [facility] Measurement of immunoglobulin A in serum specimen [facility] End: 07-05-2025 MR Brain WO contrast MRI BRAIN W QUANT WO IVCON Radiology Routine Cognitive impairment, mild, so stated 1 Occurrences starting 06/05/2024 until 07/05/2025 [facility] Comment on above: 1 Occurrences starting 06/05/2024 until 07/05/2025 End: 07-05-2025 MR Unspecified body region 3D post processing MRI 3D BRAIN QUANT Radiology Routine Cognitive impairment, mild, so stated 1 Occurrences starting 06/05/2024 until 07/05/2025 [facility] Comment on above: 1 Occurrences starting 06/05/2024 until 07/05/2025 Neutrophil cytoplasm ic Ab.classic [Units/volume] in Serum [facility] Neutrophil cytoplasm ic Ab.perinuclear.atypical [Titer] in Serum by Immunofluorescence [facility] End: 09-21-2023 NM CARDIAC PERF STRESS/PHARM NM CARDIAC PERF STRESS/PHARM Radiology Routine Coronary artery disease involving [place] coronary artery of [place] heart with angina pectoris (HCC) 1 Occurrences starting 08/22/2022 until 09/21/2023 [facility] Work Phone: Comment on above: 1 Occurrences starting 08/22/2022 until 09/21/2023 P-ANCA measurement [facility] Patient Education [facility] Work Phone: Patient referral [facility] Work Phone: Protein electrophore sis panel - Serum or Plasma [facility] End: 04-29-2023 Screening mammography bi 2-view breast inc cad JG SCREENING Radiology Routine Encounter for screening mammogram for breast cancer 1 Occurrences starting 03/30/2022 until 04/29/2023 [facility] Work Phone: Comment on above: 1 Occurrences starting 03/30/2022 until 04/29/2023 Tissue transglutamin ase IgA Ab [Units/volume] in Serum [facility] Immunizations Immunization Date Immunization Notes Care Provider Kosta jaimes 04-29-2024 influenza, high dose seasonal, preservative-free Vlad Pyle APRN.WATCH ASSEMBLY INSPECTOR Work Phone: [facility] 08-22-2023 respiratory syncytia l virus (RSV) vaccine, adjuvanted (AREXVY) Vlad Pyle SYSTEMS PROGRAMMER ANALYST.WATCH ASSEMBLY INSPECTOR Work Phone: [facility] 03-23-2023 influenza (HD-IIV4) vaccine, age 65+ yr, high dose, quadrivalent, PF (FLUZONE HIGH-DOSE) Romina Chao APRN.BARREL RIBS SOLDERER Work Phone: [facility] 03-23-2023 influenza virus vacc ine, unspecified formulation Jose Hyde MD Work Phone: [facility] 03-22-2023 influenza, high dose seasonal, preservative-free Jose Hyde MD Work Phone: [facility] 04-13-2022 influenza, high-dose , quadrivalent vaccine (FLUZONE HIGH DOSE QUADRIVALENT) Jose Hyde MD Work Phone: [facility] 03-03-2021 influenza, high-dose , quadrivalent vaccine (FLUZONE HIGH DOSE QUADRIVALENT) Isabela Dupree APRN.BARREL RIBS SOLDERER Work Phone: [facility] Work Phone: 10-16-2020 COVID-19 vaccine, fu ll dose (MODERNA) Isabela Dupree APRN.BARREL RIBS SOLDERER Work Phone: [facility] 09-18-2020 COVID-19 vaccine, fu ll dose (MODERNA) Isabela Dupree APRN.BARREL RIBS SOLDERER Work Phone: [facility] 03-25-2020 influenza, high-dose , quadrivalent vaccine (FLUZONE HIGH DOSE QUADRIVALENT) Isabela Dupree APRN.BARREL RIBS SOLDERER Work Phone: [facility] 03-21-2019 influenza, high dose seasonal, preservative-free Isabela Ineman SYSTEMS PROGRAMMER ANALYST.BARREL RIBS SOLDERER Work Phone: [facility] Work Phone: 12-27-2018 zoster vaccine recombinant Isabela Ineman SYSTEMS PROGRAMMER ANALYST.BARREL RIBS SOLDERER Work Phone: [facility] Work Phone: 10-09-2018 zoster vaccine recombinant Isabela Ineman SYSTEMS PROGRAMMER ANALYST.BARREL RIBS SOLDERER Work Phone: [facility] Work Phone: 03-08-2018 influenza, high dose seasonal, preservative-free Isabela Ineman SYSTEMS PROGRAMMER ANALYST.BARREL RIBS SOLDERER Work Phone: [facility] Work Phone: 03-06-2017 influenza, high dose seasonal, preservative-free Isabela Ineman SYSTEMS PROGRAMMER ANALYST.BARREL RIBS SOLDERER Work Phone: [facility] 08-31-2016 pneumococcal polysaccharide vaccine, 23 valent Isabela Ineman SYSTEMS PROGRAMMER ANALYST.BARREL RIBS SOLDERER Work Phone: [facility] 03-10-2016 influenza, high dose seasonal, preservative-free Isabela Ineman SYSTEMS PROGRAMMER ANALYST.BARREL RIBS SOLDERER Work Phone: [facility] 05-19-2015 pneumococcal conjuga te vaccine, 13 valent Isabela Ineman SYSTEMS PROGRAMMER ANALYST.BARREL RIBS SOLDERER Work Phone: [facility] Work Phone: 04-17-2015 influenza, high dose seasonal, preservative-free Isabela Ineman SYSTEMS PROGRAMMER ANALYST.BARREL RIBS SOLDERER Work Phone: [facility] 03-31-2014 influenza, seasonal, injectable Isabela Ineman SYSTEMS PROGRAMMER ANALYST.BARREL RIBS SOLDERER Work Phone: [facility] 03-20-2013 influenza virus vacc ine, unspecified formulation Isabela Ineman SYSTEMS PROGRAMMER ANALYST.BARREL RIBS SOLDERER Work Phone: [facility] 03-10-2012 influenza virus vacc ine, unspecified formulation Isabela Ineman SYSTEMS PROGRAMMER ANALYST.BARREL RIBS SOLDERER Work Phone: [facility] Work Phone: 11-15-2011 tetanus toxoid, redu kelly diphtheria toxoid, and acellular pertussis vaccine, adsorbed Isabela Ineman SYSTEMS PROGRAMMER ANALYST.BARREL RIBS SOLDERER Work Phone: [facility] 03-23-2011 influenza virus vacc ine, unspecified formulation Isabela Dupree SYSTEMS PROGRAMMER ANALYST.BARREL RIBS SOLDERER Work Phone: [facility] 03-23-2011 pneumococcal polysaccharide vaccine, 23 valent Isabela Dupree APRN.BARREL RIBS SOLDERER Work Phone: [facility] 04-09-2010 influenza virus vacc ine, unspecified formulation Isabela Dupree SYSTEMS PROGRAMMER ANALYST.BARREL RIBS SOLDERER Work Phone: [facility] Work Phone: 06-01-2009 novel influenza-H1N1 -09, all formulations Isabela Dupree APRN.BARREL RIBS SOLDERER Work Phone: [facility] Work Phone: 04-09-2009 influenza virus vacc ine, unspecified formulation Isabela Dupree APRN.BARREL RIBS SOLDERER Work Phone: [facility] Work Phone: Payers Date Payer Category Payer Self-pay [id number] 2022 Private Health Insurance [employer] [id number] 2022 Unknown [id number] 2017 Unknown [employer] [facility] [place] MEDICARE SUPPLEMENT [id number] 2017-Present [phone] [employer] [place] [id number] Indemnity [id number] 2017 Unknown [id number] 2006 Medicare MEDICARE MEDICAR E A AND B [id number] 2006-Present [phone] [address] [address] [place] [address] Medicare [id number] 2006 Medicare [id number] 2006 Medicare [id number] Unknown [employer] [id number] Unknown [employer] [place] [id number] Unknown [id number] Unknown [id number] Unknown [id number] Unknown [id number] Unknown [id number] Unknown [id number] Unknown [id number] Unknown [id number] Unknown [id number] Unknown [id number] Social History Date Type Detail Facility Start: 12-28-2010 End: 10-21-2024 Tobacco smoking status NHIS Ex-smoker [facility] End: 06-19-2002 History of tobacco use Current smoker [facility] Start: 06-19-1972 End: 06-19-2002 History of tobacco use Cigarette Smoker [facility] Start: 12-28-2010 End: 03-28-2023 Cigarettes smoked current (pack per day) - Reported 0.5 [facility] Work Phone: Start: 12-28-2010 End: 04-29-2024 Tobacco use and exposure Smokeless tobacco non-user [facility] Start: 08-09-2021 End: 12-03-2024 Alcohol intake Current drinker of alcohol (finding) [facility] Start: 1950 Sex Assigned At Not on file [facility] Start: 09-13-2021 End: 04-13-2022 Exposure to SARS-CoV-2 (event) Not sure [facility] Start: 1950 Sex Assigned At Female C [facility] Start: 06-19-1972 End: 04-29-2024 Tobacco smoking status AZIS Occasional tobacco smoker [facility] Start: 08-22-2022 End: 03-28-2023 Tobacco use panel [facility] Work Phone: Adult Depression Screening Assessment 2 [facility] Work Phone: Start: 10-26-2021 Gender identity Identifies as female gender (finding) [facility] Start: 10-26-2021 Sexual orientation Heterosexual (fin sandy) [facility] Start: 06-30-2020 Tobacco smoking stat us AZIS Unknown if ever smoked [facility] Start: 03-28-2023 Tobacco Comment Stressors noted [facility] Has the electric, ga s, oil, or water company threatened to shut off services in your home in past 12Mo No [facility] Are you now , , , , never or living with a partner? [facility] How often to you hav e a drink containing alcohol? 2-3 time sa week [facility] How many standard drinks containing alcohol do you have on a typical day? 3 or 4 [facility] How often do you hav e 6 or more drinks on 1 occasion? Less than monthly [facility] Do you feel stress - tense, restless, nervous, or anxious, or unable to sleep at night because your mind is troubled all the time - these days [OSQ] Very much [facility] (I/We) worried jean-pierre er (my/our) food would run out before (I/we) got money to buy more. Never true [facility] Start: 06-05-2024 Education 13 [facility] Medical Equipment Procedure Code Equipment Code Equipment Origin al Text Equipment Identifier Dates ERCP (endoscopic retrograde cholangiopancreatog fco) ([id number]) Polymeric biliary stent, non-bioabsorbable [id number] FDA Start: 10-22-2024 ERCP (endoscopic retrograde cholangiopancreatog fco) Polymeric pancreatic stent, non-bioabsorbable ()[id number] FDA Start: 10-22-2024 Graft Infuse 20g a Medium Bovine Collagen Rhbmp-2 2x1in Bone Vial Absorbable - [id number] Start: 09-09-2016 Cage - [id number] Start: 09-09-2016 Comment on above: Description: L2-3, L 3-4 Rods [id number] Start: 09-13-2016 5.5 Screw [id number] Start: 09-13-2016 6.5 Screws [id number] Start: 09-13-2016 6.5mm Screws [id number] Start: 09-13-2016 7.5mm Scrrews [id number] Start: 09-13-2016 Blockers [id number] Start: 09-13-2016 6.5 Cannulated [id number] Start: 09-13-2016 6.5 Cannulated [id number] Start: 09-13-2016 Goals Date Patient Goal Desired Activity /State Personal health goal Personal health goal Functional Status Date Assessment Result Facility 10-24-2024 Functional status Chair [facility] Work Phone: 12-08-2017 Are you deaf, or do you have serious difficulty hearing No 12/08/2017 1:08 PM Jose Bhatia MD [facility] 12-08-2017 Are you blind, or do you have serious difficulty seeing, even when wearing glasses No 12/08/2017 1:08 PM Jose Bhatia MD No [facility] 12-08-2017 Do you have serious difficulty walking or climbing stairs No 12/08/2017 1:08 PM Jose Bhatia MD No [facility] 12-08-2017 Do you have difficul ty dressing or bathing No 12/08/2017 1:08 PM Jose Bhatia MD [facility] 12-08-2017 Because of a physica l, mental, or emotional condition, do you have difficulty doing errands alone such as visiting a physician's office or shopping No 12/08/2017 1:08 PM Jose Bhatia MD No [facility] Mental Status Date Assessment Result Facility 10-24-2024 Cognitive function Cooperative;Anxious [facility] Work Phone: 10-23-2024 Cognitive function Arousable To Voice/Nam e [facility] Work Phone: 10-15-2024 Cognitive function Level Of Cons ciousness Awake;Alert;Appropriate [facility] Work Phone: 10-15-2024 Cognitive function Level Of Cons ciousness Awake;Alert;Follows Commands [facility] Work Phone: 12-08-2017 Because of a physica l, mental, or emotional condition, do you have serious difficulty concentrating, remembering, or making decisions No 12/08/2017 1:08 PM Jose Bhatia MD No [facility] Clinical Notes 06-24-2015 to 12-03-2024 Telephone Encounter - Benita Jansen LPN - 12/03/2024 4:46 PM EDTTelephone Encounter - Benita Jansen LPN - 12/03/2024 4:46 PM EDTPatient Vlad Yoo APRN.CNS - 12/03/2024 1:20 PM EDT Note Date & Type Note Facility 12-03-2024 Telephone encounter Note Electronic PA rec'd and completed for dicyclomine (BENTYL) 10 mg capsule. This was approved.Authorized from June 19, 2024 to December 03, 2025 Information received electronically from payer [facility] 12-03-2024 Miscellaneous Notes Electronic PA rec'd and completed for dicyclomine (BENTYL) 10 mg capsule. This was approved.Authorized from June 19, 2024 to December 03, 2025 Information received electronically from payer documented in this encounter [facility] 12-03-2024 Instructions Vlad Pyle APRN.CNS - 12/03/2024 1:50 PM EDT - Continue taking Imodium as you have been (two tablets per dose, up to about six times a day) to help control your diarrhea. - Begin dicyclomine (Bentyl) as prescribed: take one dose when stress or nerves trigger diarrhea, up to four times a day; if one dose relieves your symptoms, you do not need additional doses. - Continue all your blood pressure medications and continuous pickling line pickler helper refills at your pharmacy as needed. - Check your blood pressure again in about one month and schedule a follow-up appointment to review your readings. - Follow up with Dr. Borrego, the health technician at the hospital, to review the pathology and cytology results from your procedure; a referral for a second opinion has been sent if you decide to see another specialist. documented in this encounter [facility] 12-03-2024 History of Present illness Narrative SUBJECTIVE: Medicare Annual Wellness Visit Never done DTaP,Tdap,Td Vaccine(2 - Td or Tdap) due on 11/14/2021 Depression Screening due on 10/15/2024 Anxiety Screening due on 10/15/2024 Mammogram Screening due on 05/13/2025 HPI Robi Olivares is a 73 year old female. 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 She has been followed by [facility] health technician Dr. Borrego. She presented to [facility] on October through October 24, 2024 for diarrhea with melena hypokalemia hypercalcemia and 20 pound weight loss. She reported vomiting for 2 weeks prior to arrival, black tarry stool. Notes history of hypothyroidism and not taking medication which was discontinued. She noted abdominal pain nausea and vomiting after eating. Hypokalemia 2.2 and hypophosphatemia at 1.3 on admission. She was provided with IV repletion during admission. Recheck of lab values normalized with IV repletion. Noted hypercalcemia on admission attributed to dehydration. This resolved during her admission. She reported 5-10 episodes of diarrhea daily prior to admission. CT of abdomen was completed showed no clear-cut features of colitis, no fever no abdominal pain or leukocytosis. Initially started on Levaquin and Flagyl but this was discontinued. GI was consulted. EGD and colonoscopy was recommended. She was to follow-up outpatient with gastroenterology. CT did show mildly dilated CBD to 9 mm without calcified stone or other visible obstruction. She had normal bilirubin. Alkaline phosphatase was normal. Mildly elevated transaminase on admitting but normalized during admission. She underwent MRCP due to findings of possible ampullary stenosis or occult temporal lesion. ERCP was completed on October 22, 2024 showed biliary papillary stenosis which was benign. A single localized biliary stricture was noted in the lower third of the main bile duct. Stricture was of indeterminant cause. An irregularity was found in the ventral pancreatic duct in the head of the pancreas. Choledochal lithiasis was found. Complete removal was accomplished by biliary sphincterotomy and balloon extraction. Pancreatic sphincterotomy was performed biliary tree was swept and debris was found. 1 temporary stent was placed into the ventral pancreatic duct. Cells were sent for cytology. 1 temporary stent was placed into the common bile duct. She was noted to have no dysphagia. CEA was ordered. She was to follow-up in GI office in the outpatient setting for lab work and ERCP CBD cytology and pathology review. Today reports Chronic Diarrhea: - Loose stools x6 months. - Up to 9 bowel movements per day; frequency varies. - Symptoms unchanged since hospitalization in October. - Taking Imodium, 2 tablets per dose, approximately 6 tablets per day with minimal relief. - Avoids increasing Imodium dosage due to fear of constipation. - Denies follow-up with Dr. Borrego post-hospitalization; unaware of recommended follow-up. - Denies any changes to treatment during hospitalization. - Lower abdominal pain. - Symptoms exacerbated by stress; recently diagnosed with stage 4 cancer. - Expresses interest in a second opinion from a health technician. Hypertension: - Reports running out of antihypertensive medication. ROS Gastrointestinal: (+) diarrhea, (+) fecal urgency, (+) lower abdominal pain Neurological: (+) memory difficulty Psychiatric: (+) anxiety Objective BP 179/91 Pulse 77 Resp 16 Wt 41.1 kg (90 lb 9.7 oz) BMI 15.86 kg/m Physical Exam Vitals and nursing note reviewed. Constitutional: Appearance: Normal appearance. HENT: Head: Normocephalic and atraumatic. Eyes: Conjunctiva/sclera: Conjunctivae normal. Neck: Thyroid: No thyromegaly or thyroid tenderness. Cardiovascular: Rate and Rhythm: Normal rate and regular rhythm. Pulses: Carotid pulses are 2+ on the right side and 2+ on the left side. Radial pulses are 2+ on the right side and 2+ on the left side. Heart sounds: Normal heart sounds. Pulmonary: Effort: Pulmonary effort is normal. Breath sounds: Normal breath sounds. Abdominal: General: Bowel sounds are normal. Palpations: Abdomen is soft. Musculoskeletal: Left lower leg: No edema. Skin: General: Skin is warm and dry. Neurological: General: No focal deficit present. Mental Status: She is alert and oriented to person, place, and time. ALLERGIES Allergen Reactions Codeine Hives Darvon [Propoxyphen* Hives Morphine Other: See Comments Made tongue swell Penicillins Anaphylaxis Simvastatin Other: See Comments elevated LFTS; had tolerated Lipitor for years without problem Medication clonazePAM (KLONOPIN) 0.5 mg tablet Take 1 tablet by mouth two times a day as needed for up to 7 days. atorvastatin (LIPITOR) 80 mg tablet Take 1 tablet by mouth daily at bedtime. For cholesterol. amLODIPine (NORVASC) 10 mg tablet Take 1 tablet by mouth once daily. cholecalciferol (VITAMIN D-3) 5,000 unit tab Take 1 tablet by mouth once daily. valACYclovir (VALTREX) 500 mg tablet Take 1 tablet by mouth once daily. acetaminophen (TYLENOL EXTRA STRENGTH ORAL) Take by mouth. QUEtiapine (SEROQUEL) 25 mg tablet Take 1 tablet by mouth daily at bedtime. sertraline (ZOLOFT) 50 mg tablet Take 1 tablet by mouth once daily. Take this in addition to 100 mg tablet for a total of 150 mg daily loperamide (IMODIUM) 2 mg cap(s) Take 2 at onset of loose stools, then 1 after each loose stool as needed up to 6 pills per day nitroglycerin sublingual (NITROQUICK) 0.4 mg SL tablet Dissolve 1 tablet under the tongue as needed. DISSOLVE ON TONGUE FOR CHEST PAIN. IF NO PAIN RELIEF, CALL 911 dicyclomine (BENTYL) 10 mg capsule Take 1 capsule by mouth four times a day as needed. PAST MEDICAL HISTORY Diagnosis Date Acute gastritis without mention of hemorrhage Acute myocardial infarction of other specified sites, episode of care unspecified Myocardial Infarction--DR WHITE Adenomatous colon polyp TA on Jun 2015 colonoscopy (Dr. 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 Davison Severe vulvar dysplasia Vitamin D Deficiency 08/20/2009 Social History Tobacco Use Smoking status: Some Days Current packs/day: 0.00 Average packs/day: 0.3 packs/day for 30.0 years (7.5 ttl pk-yrs) Types: Cigarettes Start date: 06/19/1972 Last attempt to quit: 06/19/2002 Years since quittin.4 Smokeless tobacco: Never Tobacco comments: Stressors noted Vaping Use Vaping status: Never Used Substance Use Topics Alcohol use: Yes Comment: socially Drug use: No Comment: Used marjiana in the past Latest Ref Rng 03/28/2023 05/01/2023 07/17/2023 10/16/2023 WBC 3.70 - 11.00 k/uL 8.83 11.35 (H) RBC 3.90 - 5.20 m/uL 4.71 4.67 Hemoglobin 11.5 - 15.5 g/dL 15.9 (H) 15.6 (H) Hematocrit 36.0 - 46.0 % 45.8 45.5 MCV 80.0 - 100.0 fL 97.2 97.4 MCH 26.0 - 34.0 pg 33.8 33.4 MCHC 30.5 - 36.0 g/dL 34.7 34.3 RDW-CV 11.5 - 15.0 % 13.1 13.2 Platelet Count 150 - 400 k/uL 233 209 MPV 9.0 - 12.7 fL 11.4 12.2 Neut% % 64.3 Abs Neut (ANC) 1.45 - 7.50 k/uL 7.30 Lymph% % 25.9 Abs Lymph 1.00 - 4.00 k/uL 2.94 Sierra% % 6.9 Abs Sierra <0.87 k/uL 0.78 Eosin% % 1.9 Abs Eosin <0.46 k/uL 0.22 Baso% % 0.7 Abs Baso <0.11 k/uL 0.08 Immature Gran % % 0.3 IMMATURE GRANS (ABS) <0.10 k/uL 0.03 NRBC /100 WBC 0.0 Absolute nRBC <0.01 k/uL <0.01 <0.01 DTYPE Auto Protein, Total 6.3 - 8.0 g/dL 7.1 7.4 7.8 Albumin 3.9 - 4.9 g/dL 4.2 4.4 4.4 Calcium 8.5 - 10.2 mg/dL 9.7 9.6 9.9 Bilirubin, Total 0.2 - 1.3 mg/dL 0.3 0.4 0.3 Alkaline Phosphatase 34 - 123 U/L 79 83 88 AST 13 - 35 U/L 23 19 27 ALT 7 - 38 U/L 14 9 14 Glucose 74 - 99 mg/dL 100 (H) 100 (H) 99 BUN 7 - 21 mg/dL 11 13 10 Creatinine 0.58 - 0.96 mg/dL 0.79 0.84 0.73 Sodium 136 - 144 mmol/L 140 140 142 Potassium 3.7 - 5.1 mmol/L 4.3 3.6 (L) 4.1 Chloride 97 - 105 mmol/L 103 106 (H) 105 CO2 22 - 30 mmol/L 25 23 25 Anion Gap 9 - 18 mmol/L 12 11 12 eGFR >=60 mL/min/1.73m 79 73 87 Cholesterol, Total <200 mg/dL 139 Triglyceride <150 mg/dL 121 HDL Cholesterol >39 mg/dL 45 Non HDL Cholesterol <130 mg/dL 94 Fasting Time hrs 16 VLDL Cholesterol <30 mg/dL 24 TC:HDL Ratio <5.10 3.09 LDL Cholesterol <100 mg/dL 70 LDL:HDL Ratio <2.54 1.56 Iron 41 - 186 ug/dL 65 TIBC 232 - 386 ug/dL 277 Transferrin Saturation 15.0 - 57.0 % 23.5 TSH 0.270 - 4.200 mIU/L 3.910 2.200 3.710 Free T4 0.9 - 1.7 ng/dL 1.5 1.6 1.5 Free T3 2.3 - 4.1 pg/mL 3.0 2.5 2.8 Vitamin D 25 Hydroxy 31.0 - 80.0 ng/mL 65.6 54.7 Ferritin 14.7 - 205.1 ng/mL 198.0 1. Chronic diarrhea (K52.9) 2. Irritable bowel syndrome without diarrhea (K58.9) 3. Biliary stricture (HCC) - ICD9: 576.2, ICD10: K83.1 - Persistent for approximately 6 months, with up to 9 loose stools per day; no significant improvement since hospitalization in October. - Currently managed with Imodium, taking 2 tablets per dose, up to 6 tablets daily, with partial relief. - Initiated Bentyl (dicyclomine) as needed, up to 4 times daily, to be used in conjunction with Imodium for additional symptom control. - Referred to Dr. Borrego, health technician, for follow-up on previous tests, including pathology and cytology. - Referral to another health technician for a second opinion if desired after consultation with Dr. Borrego. Recheck BP next week at [facility] on medication. Vlad Pyle APRN.CNS Medical Decision Making: Problems: Moderate: 1+ chronic illnesses with change Data: Unique source(s) for external note(s) reviewed: 1 Unique test result(s) reviewed: 3+ Risk: Moderate: Drug management Medical Decision Making Level: 4 - Moderate documented in this encounter [facility] 12-03-2024 Note HNO ID: [id number] Author: VLAD PYLE APRN.CNS Service: ? Author Type: Nurse Specialist Type: Progress Notes Filed: 12/03/2024 14:50 Note Text: SUBJECTIVE: Medicare Annual Wellness Visit Never done DTaP,Tdap,Td Vaccine(2 -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 angina pectoris Benign essential HTN Arteriosclerotic heart disease (ASHD) Home Medications ?Medication ?Instructions ?Recorded ?Last Taken ?Type atenolol 25 mg tablet 25 mg PO DAILY 06/04/1301/17 05:00 History clopidogrel 75 mg tablet 75 mg PO DAILY 06/04/13 0309/10 History nitroglycerin 0.4 mg sublingual 0.4 mg sublingual Q5M PRN Chest 06/04/13 Unknown History tablet Pain pantoprazole 40 mg tablet,delayed 20 mg PO BID 3 02/01/16 05:00 History release bupropion HCl 100 mg tablet,12 hr 100 mg PO DAILY 06/19 Unknown History sustained-release (Wellbutrin SR) sertraline 100 mg tablet 100 mg PO DAILY 06/28/1809/10 History levothyroxine 50 mcg tablet 50 mcg PO DAILY 06/10/19 U nknown History atorvastatin 80 mg tablet 80 mg PO QHS #30 tabs 08/19/24 Rx amlodipine 10 mg tablet 10 mg PO DAILY 10/21/2409/10 History quetiapine 100 mg tablet 100 mg PO QHS 10/21/2408/19 History sertraline 50 mg tablet 50 mg PO DAILY 10/21/2409/10 History valacyclovir 500 mg tablet 500 mg PO DAILY 10/21/24 History Allergy/AdvReac Type Severity Reaction Status Date / Time codeine Allergy Severe Swelling Verified 10/21/24 13:54 propoxyphene HCl (From Allergy Severe Other Verified 10/21/24 13:54 Darvon) Penicillins AdvReac Intermediate Nausea/Vom/ Verified 10/21/24 13:54 Diarrhea Family History Brother CVA (cerebral vascular accident) Heart disease Cancer Surgical History Presence of coronary angioplasty implant and graft (~08/08/12) History of aorto-femoral bypass History of heart artery stent History of left knee surgery History of hysterectomy History of lumbar surgery History of hysterectomy PAD (peripheral artery disease) Social History Smoking Status: Former smoker alcohol intake: never substance use type: does not use ROS ROS ED ROS Narrative Lower abdominal pain. Weight loss. Nausea vomiting diarrhea. Melena. Constitutional Constitutional ED: Denies chills or fever(s) ENT ENT ED: Denies ear pain Cardiovascular Cardiovascular: Denies chest pain Respiratory/Chest Respiratory/Chest: Denies cough or dyspnea Gastrointestinal Gastrointestinal: Reports diarrhea, melena, nausea and vomiting; Denies constipation Genitourinary Genitourinary ED: Denies dysuria or hematuria Musculoskeletal Musculoskeletal: Denies arthralgias Integumentary Denies abscess Neurologic Neurologic: Denies headache(s) Psychiatric Psychiatric: Denies anxiety or depression Endocrine Endocrinology: Denies polydipsia or polyphagia Hematologic/Lymphatic Hematologic/Lymphatic: Denies easy bleeding, easy bruising or lymphadenopathy Allergic/Immunologic Allergic/Immunologic ED: Denies mouth swelling, tongue swelling or urticaria EXAM Physical Exam Narrative Exam Narrative: [id number] female sitting upright in bed. Vital signs stable afebrile. Does not look septic or toxic. No acute distress. H EENT exam pupils round react to light. Moist mucous membranes. Neck nontender JVD. No lymphadenopathy. Lungs clear to auscultation bilaterally. Heart regular rhythmno murmur. Rate about 80. Chest wall ribs nontender. She is very thin. Abdomen soft nondistended normal bowel sounds without peritoneal signs. She really does not have any significant abdominal tenderness. Says she has pain inher suprapubic region. There is no hernia or mass. There is no pulsatile mass. Both the right upper and right lower quadrants are unremarkable. There is no distention. Moving all 4extremities. Nontender no edema. Again thin. Normalstrength. Back nontender. Neurologically she is awake alert answering questions following commands. Const Vital Signs: 10/21/24 13:47 10/21/24 15:47 10/21/24 17:00 Temperature 97.7 F L Temperature Source Oral Pulse Rate 79 67 Respiratory Rate 18 18 Blood Pressure 156/89 H 146/91 H 140/73 H Blood Pressure Mean 111 109 95 Pulse Ox 99 98 97 Oxygen Delivery Method Room Air Room Air Room Air 10/21/24 18:25 Temperature 97.8 F Temperature Source Pulse Rate 67 Respiratory Rate 16 Blood Pressure 129/105 H Blood Pressure Mean 113 Pulse Ox 98 Oxygen Delivery Method Positive well developed and cachectic; Negative for well nourished, obese, contractures or unkempt Constitutional Narrative: Thin. Weight loss. General Appearance ED: well developed, cachectic and NAD; Negative for unkempt, contractures or pallor Nutritional Appearance: cachectic; Negative for obese HEENT Reports moist mucous membranes normocephalic and atraumatic Eyes PERRL and EOMs intact bilaterally General Eye ED: Negative for pale conjunctiva or scleral icterus Neck no lymphadenopathy, supple and no JVD General: Negative for tenderness Carotids: Negative for other Resp normal respiratory effort and clear to auscultation bilaterally Effort and Inspection: Negative for respiratory distress Auscultation: Negative for rales, rhonchi, wheezes or diminished lung sounds Cardio regular rate, regular rhythm, S1 normal heart sound, S2 normal heart sound and no murmurs Rate: Negative for bradycardia or tachycardic Rhythm: Negative for abnormal rhythm GI non-tender, non-distended and no masses GI Narrative: Complains of suprapubic pain but really not reproducible. Auscultation: normoactive bowel sounds Palpation: soft; Negative for tender, guarding, rigid, hepatomegaly, splenomegaly, hernia, mass, pulsatile mass or rebound tenderness present Back/Spine no CVA tenderness General Back: Negative for CVA tenderness Cervical Spine: Negative for cervical spine tenderness Thoracic Spine / Upper Back: Negative for thoracic spinal tenderness Lumbar Spine / Lower Back: Negative for lumbar spinal tenderness Extremity full ROM Extremity Narrative: Thin muscular wasting. General Extremety ED: Negative for edema or tenderness General Extremity: Negative for edema Neuro CN's II-XII intact bilaterally and moves all extremities Sensorium / Orientation: alert, oriented to person, oriented to place and oriented to time; Negative for orientation impaired, confused or lethargic Motor Exam: strength 5/5 throughout Psych mental status grossly normal and thought process normal Appearance: Negative for unkempt Mood & Affect: Negative for tearful Skin General Skin Exam: Negative for jaundice or pallor Lesions: no lesions Rashes: no rashes Trauma: Negative for abrasion Nails: Negative for discolored MDM MDM MDM Narrative Medical decision making narrative: 73-year-old female with nausea vomiting diarrhea for a month primarily when she eats. Weight loss. PT PTT obtained. CBC and BMP were reportedly lower abdominal pain. Differential could include GI bleed, malignancy, mesenteric ischemia, versus other etiologies. She be treated with a liter of fluid. CAT scan and labs are being obtained including a TSH was reportedly she been off herthyroid medication which could also explain her weight loss. Repeat exam patient doing well at 6:20 PM. Abdomen is benign. She will be treated with IV and oral potassium for a potassium of 2.2. Given her weight loss, hypokalemia I think she needs admitted for further evaluation. Possible mesenteric ischemia versus other etiologies. Hospitalist will admit thepatient. History & Record Review Discussion w/independent historian: Patient Additional record(s) reviewed:: Prior inpatient record, Prior outpatient record,Prior ED visit and Prior labs Lab Data Attestation: I reviewed the patient's lab results. Lab results narrative: CBC shows normal white count of 6.9. H&H is 16 and 43. Platelets 198. Electrolytes show sodium 134. Potassium 2.2. Anion gap is 24. BUN and creatinine are normal 11 and 0.8. Liver enzymes unremarkable. AST of 40 ALT of48. Amylase is normal at 26. Lipase is 43. TSH is normal at 2.5. Urinalysis is normal. Blood type is O+. Labs: Laboratory Results - last 24 hr 10/21/24 10/21/24 10/21/24 14:00 14:39 16:16 WBC 6.9 RBC 4.95 Hgb 16.1 H Hct 43.9 MCV 88.7 MCH 32.5 H MCHC 36.7 H RDW Std Deviation 44.8 H RDW Coeff of Sowmya 14.0 Plt Count 198 MPV 11.6 Immature Gran % (Auto) 0.400 Neut % (Auto) 58.0 Lymph % (Auto) 28.3 Sierra % (Auto) 12.0 H Eos % (Auto) 1.0 Baso % (Auto) 0.3 Absolute Neuts (auto) 4.0 Absolute Lymphs (auto) 1.95 Nucleated RBC % 0 Sodium 134 Potassium 2.2 L* Chloride 89 L Carbon Dioxide 19.9 L Anion Gap 24 H BUN 11 Creatinine 0.81 Estim Creat Clear Calc 38.09 L Est GFR (MDRD) Non-Af 77 BUN/Creatinine Ratio 13.3 Glucose 95 Calcium 11.4 H Total Bilirubin 0.45 AST 40 H ALT 48 H Alkaline Phosphatase 75 Total Protein 7.3 Albumin 4.0 Globulin 3.3 Albumin/Globulin Ratio 1.2 Amylase 26 L Lipase 43 TSH 2.500 Urine Color Straw Urine Clarity Clear Urine pH 6.5 Ur Specific Baldwin 1.005 Urine Protein 15 H Urine Glucose (UA) Normal Urine Ketones 50 H Urine Occult Blood Negative Urine Nitrite Negative Urine Bilirubin Negative Urine Urobilinogen Normal Ur Leukocyte Esterase Negative Urine RBC 0-5 SEEN Urine WBC 0-5 SEEN Ur Squamous Epith Cells 0-5 SEEN Urine Bacteria 0 SEEN Urine Mucus 0 SEEN Blood Type O POSITIVE Antibody Screen NEGATIVE Radiography Chest X-Ray - ED: 2 View and Read by ED Physician Diagnostic Testing: Clinical Impression(s) from Imaging Studies Abdomen/Pelvis CT 10/21/24 14:29 IMPRESSION: 1. Limited exam as above. 2. Mild wall thickening versus underdistention involving the rectosigmoid colon and cecum. Correlate for mild colitis and recommend clinical follow-up to ensure resolution and no underlying lesion. No definite adjacent inflammation to confirm colitis. 3. Mildly dilated CBD to 9 mm without calcified stone or other visible obstructing process. Correlate with serum bilirubin and consider MRCP as indicated. 4. Appendix not identified. No definite inflammation in the region. 5. Additional description as above. Reading Location: [facility] Chest X-Ray 10/21/24 15:10 IMPRESSION: No acute cardiopulmonary process is identified radiographically. Emphysematous changes. Arteriosclerotic vascular disease of the aorta. Diffuse osteopenia of the bony thorax. Reading Location: [facility] Chest x-ray, 2 views, AP and lateral, interpreted both by myself and the radiologist. Shows chronicchanges. COPD. No acute process. Rhythm Strip Rhythm Strip: Sinus Rhythm Rate: 72 Ectopy: None EKG Initial EKG: Attestation: I personally reviewed and interpreted this EKG as follows: Interpretation: Sinus Rhythm and No Acute Injury Pattern Comments: Normal sinus rhythm rate of 72 no acute signs of MN or ischemia. Discharge Plan Triage Chief Complaint: GI Bleed Other Complaint: Nausea/Vomiting ED Provider: Jonas Samuels Dx/Rx/DC Orders Clinical Impression: Abdominal pain, Abnormal weight loss, Abdominal pain, vomiting, and diarrhea, Acute hypokalemia, History of CAD (coronary artery disease) Prescriptions: No Action bupropion HCl [Wellbutrin SR] 100 mg tablet sustained-release 12 hr 100 mg PO DAILY atenolol 25 MG tablet 25 mg PO DAILY Patient Comments: BP clopidogrel 75 MG tablet 75 mg PO DAILY Patient Comments: ANTIPLATLET pantoprazole 40 MG tablet 20 mg PO BID Patient Comments: STOMACH nitroglycerin 0.4 MG tablet 0.4 mg Sublingual Q5M PRN (Reason: Chest Pain) sertraline 100 mg tablet 100 mg PO DAILY Patient Comments: MOOD levothyroxine 50 mcg tablet 50 mcg PO DAILY Patient Comments: THYROID valacyclovir 500 mg tablet 500 mg PO DAILY quetiapine 100 mg tablet 100 mg PO QHS amlodipine 10 mg tablet 10 mg PO DAILY sertraline 50 mg tablet 50 mg PO DAILY atorvastatin 80 mg tablet 80 mg PO QHS Qty: 30 12RF Primary Care Provider: Jose Hyde Referrals: Jose Hyde MD [Primary Care Provider] - Print Language: Croatian Disposition Disposition: Acute Care Hospital [facility] What to do if you have Problems For any increased pain, shortness of breath, bleeding, nausea or vomiting, chestpain, or any unexpected problems, contact your Primary Care Provider. Call [facility] ([phone]) or report tothe closest Emergency Room. Call 911 if necessary. 10/21/241837 Cosigner Signature (if applicable): CC: Dr. Jose Hyde MD ~ Signed ADDENDUM by Dr. Jonas Samuels MD on 10/21/24 at 1838 EKG was normal sinus rhythm rate of 72 no acute signs of MN or ischemia. No significant change from1 from 2023. 10/21/241837 Cosigner Signature (if applicable): cc: Dr. Jose Hyde MD ~* Signed [facility]05-05-2025 Radiology Diagnostic study note [facility] Imaging Services [address] [place] [address] Chest PA and Lateral MR#: [id number] Acct: [id number] Name: ROBI OLIVARES Rep #: [id number] : 1950 F 73 From: Jose Carpio DO PCP: Dr. Jose Hyde MD Status: RE G ER Study:Chest PA and Lateral Date of Exam: 10/21/24 Exam# [id number] Ordering Dr: Teena Samuels MD PROCEDURE: CHEST PA AND LATERAL 10/21/2024 REASON FOR EXAM: WEIGHT LOSS TECHNIQUE: Frontal and lateral views of the chest. COMPARISON: Chest x-ray study dated 04/07/2024 FINDINGS: Hardware: Radiopaque hardware is projected over the lumbar spine. The radiopaque hardware is not entirely included on this study. Surgical clips are projected in this location. Heart: Heart size and configuration are within normal limits. Mediastinum: Pulmonary vasculature and hilar structures are unremarkable. Trachea is midline. Arteriosclerotic vascular disease of the aorta is noted. Lungs: Calcific nodular densities are projected over the left cardiac border andare similar when compared to the prior study. There is no atelectasis, consolidation, effusion or pneumonic infiltrate. The lungs are hyperinflated with slight flattening of the hemidiaphragms. There are central lucency identified in the upper lung valentin. These findings are compatible with emphysematous changes. Bones: Diffuse osteopenia of the bony thorax is seen. There appears to be a dextroscoliosis of the thoracic spine. RAD/Chest PA and Lateral IMPRESSION: No acute cardiopulmonary process is identified radiographically. Emphysematous changes. Arteriosclerotic vascular disease of the aorta. Diffuse osteopenia of the bony thorax. Reading Location: [id number] CC: Dr. Jonas Samuels MD; Dr. Jose Hyde MD ~ Surgical Technician: Signed [facility]04-29-2025 NoteHNO ID: [id number] Author: KEE TRIMBLE APRN.DEVIN Service: ? Author Type: Nurse Practitioner Type: Progress Notes Filed: 10/15/2024 12:41 Note Text: 73-year-old female presents urgent care accompanied by significant other. Chief complaint weakness. Patient states feels like she might have COVID-19 again. Has been unable to eat or drink. States having a hard time walking due to weakness. With presenting symptoms referred patient to ED. Patient will be sent [facility]. will transport patient via private vehicle. Verbalized understand [facility] History of Present illness Narrative* Kee Trimble APRN.BARREL RIBS SOLDERER - 10/15/2024 12:22 PM EDT 73-year-old female presents urgent care accompanied by significant other. Chief complaint weakness.Patient states feels like she might have COVID-19 again. Has been unable to eat or drink. States having a hard time walking due to weakness. With presenting symptoms referred patient to ED. Patient will be sent [facility]. will transport patient via private vehicle. Verbalized understand agrees plan of care [facility] Telephone encounter Note * Telephone Encounter - Farrah Cayenne Inocencio - 08/26/2024 4:49 PM EDT Patient calling back in stating she would like for us to discard it. Eulalia Inocencio Ca August 26, 2024 4:49 PM [facility]03-10-2025 Miscellaneous Notes* Telephone Encounter - Lanny Eulalia Painter - 08/26/2024 4:49 PM EDT Patient calling back in stating she would like for us to discard it. Eulalia Inocencio Ca August 26, 2024 4:49 PM * Telephone Encounter - Florina Hunter MA - 08/26/2024 4:27 PM EDT Received fax requesting form completed for BP monitor. Left message for patient to call office backand let us know if this is desired. If patient did not request this we will discard. Florina Hunter MA documented in this encounterOhio[facility]25 Telephone encounter Note * Telephone Encounter - Florina Hunter MA - 08/26/2024 4:27 PM EDT Received fax requesting form completed for BP monitor. Left message for patient to call office backand let us know if this is desired. If patient did not request this we will discard. Florina Hunter MA [facility]02-27-[facility]25 NoteHNO ID: [id number] Author: VLAD PYLE APRN.WATCH ASSEMBLY INSPECTOR Service: ? Author Type: Nurse Specialist Type: Progress Notes Filed: 08/15/2024 14:14 Note Text: SUBJECTIVE: DTaP,Tdap,Td Vaccine(2 - Td or Tdap) due on 11/14/2021 Advance Directive Discussion due on 06/19/2024 LDL Cholesterol due on 07/17/2024 HPI Robi Olivares is a 73 year old female. PMH significant for ACTIVE PROBLEM LIST Essential Hypertension Mixed Hyperlipidemia Bipolar Disorder, Unspecified (Hcc) Acquired Hypothyroidism Diverticulosis of Colon (Without Mention of [...] Actinic Damage//Sun-damaged skin Cad (Coronary Artery Disease), [place] Coronary Artery Coronary Stent Carcinoma in Situ, Vulva Severe Vulvar Dysplasia Elevated Lfts Fatty Infiltration of Liver Acne Scars Ibs (Irritable Bowel Syndrome) Pad (Peripheral Artery Disease) ([facility]) Sciatica Due to Displacement of Lumbar Intervertebral Disc Gerd (Gastroesophageal Reflux Disease) Mgus (Monoclonal Gammopathy of Unknown Significance) Iron Deficiency Anemia Scoliosis of Lumbar Spine S/P Lumbar Spinal Fusion Bilateral Carotid Artery Stenosis Chronic Diastolic Chf (Congestive Heart Failure) ([facility]) Presents today regarding memory and weight loss. Reports her has an oral cancer, and he is going to [facility] tomorrow . She notes mood is about the same as when she was last seen. Cannot tell if the increased dose of sertraline helped or not. She notes continues to be difficult, verbally unpleasant routinely. Notes feeling very depressed. Not currently seeing a counselor. No voiced SI HI. Current smoker once in a while, contemplating quitting. No current EtOH use. States memory is about the same as previous. She reports multiple pruritic skin lesions that appeared a couple of weeks ago, thinks it may be related to stress. She has been using [id number] treatments that have not helped much. She has seen Dr Mahamed jacob for history of coronary artery disease remote coronary intervention most recently 1996 with PCI to the RCA and posterior ventricular branch. She has a history of peripheral artery disease with iliac stents, hypertension, dyslipidemia, chronic diastolic congestive heart failure, carotid artery disease, and ongoing smoking. Bradycardia noted, atenolol discontinued.She is without report of chest pain shortness of breath dizziness lightheadedness palpitations edema. HTN: Ms. Olivares indicates that she is without headache, chest pain, palpitations, dyspnea, peripheral edema, orthopnea, fatigue or PND. Last 14 Encounter BP Readings: Date: BP: 08/15/2024 113/69 06/05/2024 122/80 05/22/2024 102/70 05/13/2024 132/78 04/29/2024 135/74 10/16/2023 130/70 07/17/2023 128/57 06/26/2023 126/70 05/01/2023 116/70 03/28/2023 116/66 08/22/2022 118/68 06/29/2022 128/74 02/07/2022 131/66 01/31/2022 138/72 Hyperlipidemia. Ms. Olivares reports doing well on current therapy no adverse effects noted Her most recent lipid panels are: Cholesterol, Total (mg/dL) Date Value 07/17/2023 139 07/26/2022 141 05/28/2021 170 12/17/2020 161 HDL Cholesterol (mg/dL) Date Value 07/17/2023 45 07/26/2022 49 05/28/2021 46 12/17/2020 43 LDL Cholesterol (mg/dL) Date Value 07/17/2023 70 07/26/2022 74 05/28/2021 96 12/17/2020 81 Triglyceride (mg/dL) Date Value 07/17/2023 121 07/26/2022 90 05/28/2021 140 12/17/2020 184 Hypothyroidism. She is doing well on current medication. No reported fatigue, no weight gain. TSH Date Value 10/16/2023 3.710 mIU/L 05/01/2023 2.200 mIU/L 05/28/2021 3.470 uU/mL 12/17/2020 4.110 uU/mL ) She notes GERD is controlled with current medication, occasional difficulties but none currently. No report of nausea vomiting constipation BRBPR black or tarry stools. Notes chronic IBS, takes 4 immodium daily, seems to help. 1-4 BM per day, stable. Review of Systems Constitutional: Negative. Respiratory: Negative. Cardiovascular: Negative. Endocrine: Negative. Skin: Positive for rash. Objective BP 113/69 Pulse 70 Resp 16 Wt 43 kg (94 lb 12.8 oz) BMI 16.59 kg/m? Physical Exam Vitals and nursing note reviewed. Constitutional: Appearance: Normal appearance. HENT: Head: Normocephalic and atraumatic. Eyes: Conjunctiva/sclera: Conjunctivae normal. Neck: Thyroid: No thyromegaly or thyroid tenderness. Cardiovascular: Rate and Rhythm: Normal ra (more content not included)...[facility] History of Present illness Narrative* Vlad Pyle, SYSTEMS PROGRAMMER ANALYST.WATCH ASSEMBLY INSPECTOR - 08/15/2024 1:34 PM EST SUBJECTIVE: DTaP,Tdap,Td Vaccine(2 - Td or Tdap) due on 11/14/2021 Advance Directive Discussion due on 06/19/2024 LDL Cholesterol due on 07/17/2024 HPI Robi Olivares is a 73 year old female. PMH significant for ACTIVE PROBLEM LIST Essential Hypertension Mixed Hyperlipidemia Bipolar Disorder, Unspecified (Hcc) Acquired Hypothyroidism Diverticulosis of Colon (Without Mention of [...] Actinic Damage//Sun-damaged skin Cad (Coronary Artery Disease), [place] Coronary Artery Coronary Stent Carcinoma in Situ, Vulva Severe Vulvar Dysplasia Elevated Lfts Fatty Infiltration of Liver Acne Scars Ibs (Irritable Bowel Syndrome) Pad (Peripheral Artery Disease) ([facility]) Sciatica Due to Displacement of Lumbar Intervertebral Disc Gerd (Gastroesophageal Reflux Disease) Mgus (Monoclonal Gammopathy of Unknown Significance) Iron Deficiency Anemia Scoliosis of Lumbar Spine S/P Lumbar Spinal Fusion Bilateral Carotid Artery Stenosis Chronic Diastolic Chf (Congestive Heart Failure) ([facility]) Presents today regarding memory and weight loss. Reports her has an oral cancer, and he is going to [facility] tomorrow . She notes mood is about the same as when she was last seen. Cannot tell if the increased dose of sertraline helped or not. She notes continues to be difficult, verbally unpleasant routinely. Notes feeling very depressed. Not currently seeing a counselor. No voiced SI HI. Current smoker once in a while, contemplating quitting. No current EtOH use. States memory is about the same as previous. She reports multiple pruritic skin lesions that appeared a couple of weeks ago, thinks it may be related to stress. She has been using [id number] treatments that have not helped much. She has seen Dr Irby cardiology for history of coronary artery disease remote coronary intervention most recently 1996 with PCI to the RCA and posterior ventricular branch. She has a history of peripheral artery disease with iliac stents, hypertension, dyslipidemia, chronic diastolic congestive heart failure, carotid artery disease, and ongoing smoking. Bradycardia noted, atenolol discontinued.She is without report of chest pain shortness of breath dizziness lightheadedness palpitations edema. HTN: Ms. Olivares indicates that she is without headache, chest pain, palpitations, dyspnea, peripheral edema, orthopnea, fatigue or PND. Last 14 Encounter BP Readings: Date: BP: 08/15/2024 113/69 06/05/2024 122/80 05/22/2024 102/70 05/13/2024 132/78 04/29/2024 135/74 10/16/2023 130/70 07/17/2023 128/57 06/26/2023 126/70 05/01/2023 116/70 03/28/2023 116/66 08/22/2022 118/68 06/29/2022 128/74 02/07/2022 131/66 01/31/2022 138/72 Hyperlipidemia. Ms. Olivares reports doing well on current therapy no adverse effects noted Her most recent lipid panels are: Cholesterol, Total (mg/dL) Date Value 07/17/2023 139 07/26/2022 141 05/28/2021 170 12/17/2020 161 HDL Cholesterol (mg/dL) Date Value 07/17/2023 45 07/26/2022 49 05/28/2021 46 12/17/2020 43 LDL Cholesterol (mg/dL) Date Value 07/17/2023 70 07/26/2022 74 05/28/2021 96 12/17/2020 81 Triglyceride (mg/dL) Date Value 07/17/2023 121 07/26/2022 90 05/28/2021 140 12/17/2020 184 Hypothyroidism. She is doing well on current medication. No reported fatigue, no weight gain. TSH Date Value 10/16/2023 3.710 mIU/L 05/01/2023 2.200 mIU/L 05/28/2021 3.470 uU/mL 12/17/2020 4.110 uU/mL ) She notes GERD is controlled with current medication, occasional difficulties but none currently. No report of nausea vomiting constipation BRBPR black or tarry stools. Notes chronic IBS, takes 4 immodium daily, seems to help. 1-4 BM per day, stable. Review of Systems Constitutional: Negative. Respiratory: Negative. Cardiovascular: Negative. Endocrine: Negative. Skin: Positive for rash. Objective BP 113/69 Pulse 70 Resp 16 Wt 43 kg (94 lb 12.8 oz) BMI 16.59 kg/m Physical Exam Vitals and nursing note reviewed. Constitutional: Appearance: Normal appearance. HENT: Head: Normocephalic and atraumatic. Eyes: Conjunctiva/sclera: Conjunctivae normal. Neck: Thyroid: No thyromegaly or thyroid tenderness. Cardiovascular: Rate and Rhythm: Normal rate and regular rhythm. Pulses: Carotid pulses are 2+ on the right side and 2+ on the left side. Radial pulses are 2+ on the right side and 2+ on the left side. Heart sounds: Normal heart sounds. Pulmonary: Effort: Pulmonary effort is normal. Breath sounds: Normal breath sounds. Abdominal: General: Bowel sounds are normal. Palpations: Abdomen is soft. Musculoskeletal: Left lower leg: No edema. Skin: General: Skin is warm and dry. Comments: Multiple small lesions over face and arms, erythematous, scratch hinds present, no induration or drainage no warmth Neurological: General: No focal deficit present. Mental Status: She is alert and oriented to person, place, and time. ALLERGIES Allergen Reactions Codeine Hives Darvon [Propoxyphen* Hives Morphine Other: See Comments Made tongue swell Penicillins Anaphylaxis Simvastatin Other: See Comments elevated LFTS; had tolerated Lipitor for years without problem Medication loperamide (IMODIUM) 2 mg cap(s) Take 2 at onset of loose stools, then 1 after each loose stool as needed up to 6 pills per day clopidogrel (PLAVIX) 75 mg tablet Take 1 tablet by mouth once daily. atorvastatin (LIPITOR) 80 mg tablet Take 1 tablet by mouth daily at bedtime. For cholesterol. sertraline (ZOLOFT) 100 mg tablet Take 1 tablet by mouth once daily. QUEtiapine (SEROQUEL) 100 mg tablet Take 1 tablet by mouth daily at bedtime. sertraline (ZOLOFT) 50 mg tablet Take 1 tablet by mouth once daily. Take this in addition to 100 mgtablet for a total of 150 mg daily levothyroxine (SYNTHROID) 25 mcg tablet Take 1 tablet by mouth daily before breakfast. amLODIPine (NORVASC) 10 mg tablet Take 1 tablet by mouth once daily. valACYclovir (VALTREX) 500 mg tablet Take 1 tablet by mouth once daily. nitroglycerin sublingual (NITROQUICK) 0.4 mg SL tablet Dissolve 1 tablet under the tongue as needed. DISSOLVE ON TONGUE FOR CHEST PAIN. IF NO PAIN RELIEF, CALL 911 cholecalciferol, vitamin D3, 100 mcg (4,000 unit) cap Take by mouth. benzonatate (TESSALON PERLE) 100 mg capsule Take 1 capsule by mouth three times a day as needed forcough. (Patient not taking: Reported on 08/15/2024) PAST MEDICAL HISTORY Diagnosis Date Acute gastritis without mention of hemorrhage Acute myocardial infarction of other specified sites, episode of care unspecified Myocardial Infarction--DR WHITE Adenomatous colon polyp TA on Jun 2015 colonoscopy (Dr. 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 Davison Severe vulvar dysplasia Vitamin D Deficiency 08/20/2009 Social History Tobacco Use Smoking status: Some Days Current packs/day: 0.00 Average packs/day: 0.3 packs/day for 30.0 years (7.5 ttl pk-yrs) Types: Cigarettes Start date: 06/19/1972 Last attempt to quit: 06/19/2002 Years since quittin.1 Smokeless tobacco: Never Tobacco comments: Stressors noted Vaping Use Vaping status: Never Used Substance Use Topics Alcohol use: Yes Comment: socially Drug use: No Comment: Used marjiana in the past Latest Ref Rng 03/28/2023 05/01/2023 07/17/2023 10/16/2023 WBC 3.70 - 11.00 k/uL 8.83 11.35 (H) RBC 3.90 - 5.20 m/uL 4.71 4.67 Hemoglobin 11.5 - 15.5 g/dL 15.9 (H) 15.6 (H) Hematocrit 36.0 - 46.0 % 45.8 45.5 MCV 80.0 - 100.0 fL 97.2 97.4 MCH 26.0 - 34.0 pg 33.8 33.4 MCHC 30.5 - 36.0 g/dL 34.7 34.3 RDW-CV 11.5 - 15.0 % 13.1 13.2 Platelet Count 150 - 400 k/uL 233 209 MPV 9.0 - 12.7 fL 11.4 12.2 Neut% % 64.3 Abs Neut (ANC) 1.45 - 7.50 k/uL 7.30 Lymph% % 25.9 Abs Lymph 1.00 - 4.00 k/uL 2.94 Sierra% % 6.9 Abs Sierra <0.87 k/uL 0.78 Eosin% % 1.9 Abs Eosin <0.46 k/uL 0.22 Baso% % 0.7 Abs Baso <0.11 k/uL 0.08 Immature Gran % % 0.3 IMMATURE GRANS (ABS) <0.10 k/uL 0.03 NRBC /100 WBC 0.0 Absolute nRBC <0.01 k/uL <0.01 <0.01 DTYPE Auto Protein, Total 6.3 - 8.0 g/dL 7.1 7.4 7.8 Albumin 3.9 - 4.9 g/dL 4.2 4.4 4.4 Calcium 8.5 - 10.2 mg/dL 9.7 9.6 9.9 Bilirubin, Total 0.2 - 1.3 mg/dL 0.3 0.4 0.3 Alkaline Phosphatase 34 - 123 U/L 79 83 88 AST 13 - 35 U/L 23 19 27 ALT 7 - 38 U/L 14 9 14 Glucose 74 - 99 mg/dL 100 (H) 100 (H) 99 BUN 7 - 21 mg/dL 11 13 10 Creatinine 0.58 - 0.96 mg/dL 0.79 0.84 0.73 Sodium 136 - 144 mmol/L 140 140 142 Potassium 3.7 - 5.1 mmol/L 4.3 3.6 (L) 4.1 Chloride 97 - 105 mmol/L 103 106 (H) 105 CO2 22 - 30 mmol/L 25 23 25 Anion Gap 9 - 18 mmol/L 12 11 12 eGFR >=60 mL/min/1.73m 79 73 87 Cholesterol, Total <200 mg/dL 139 Triglyceride <150 mg/dL 121 HDL Cholesterol >39 mg/dL 45 Non HDL Cholesterol <130 mg/dL 94 Fasting Time hrs 16 VLDL Cholesterol <30 mg/dL 24 TC:HDL Ratio <5.10 3.09 LDL Cholesterol <100 mg/dL 70 LDL:HDL Ratio <2.54 1.56 Iron 41 - 186 ug/dL 65 TIBC 232 - 386 ug/dL 277 Transferrin Saturation 15.0 - 57.0 % 23.5 TSH 0.270 - 4.200 mIU/L 3.910 2.200 3.710 Free T4 0.9 - 1.7 ng/dL 1.5 1.6 1.5 Free T3 2.3 - 4.1 pg/mL 3.0 2.5 2.8 Vitamin D 25 Hydroxy 31.0 - 80.0 ng/mL 65.6 54.7 Ferritin 14.7 - 205.1 ng/mL 198.0 1. Memory impairment (primary diagnosis) she is undergoing evaluation of this with Geriatrics. Has imaging scheduled. Recent lab work was in acceptable range. Plan for medication changes at upcoming visit. Able to complete all IADLs and ADLs. - GERIATRICS - Dr Rick 2. Persistent depressive disorder - ICD9: 300.4, ICD10: F34.1 3. History of bipolar disorder - ICD9: V11.1, ICD10: Z86.59 Notes she has not noted much difference with increased dose of sertraline. She had severe depression, currently taking quetiapine and sertraline. Will increase sertraline from 100 mg to 150 mg daily. Notes home situation is difficult but not ready to make any changes at this time - SERTRALINE 50 MG TABLET - CONSULT TO PSYCHOLOGY 5. Essential hypertension - ICD9: 401.9, ICD10: I10 - controlled - Continue current medication(s) - Encouraged dietary sodium restriction/DASH diet - Recommended regular aerobic exercise. - Recommend home blood pressure monitoring, to bring results in on next visit 5. Mixed hyperlipidemia - ICD9: 272.2, ICD10: E78.2 Recommend a plant based diet such as Mediterranean diet with plenty of vegetables, fruits,whole grains, fish, chicken, turkey or plant proteins and routine exercise such as walking Continue current medication unchanged - LIPID PANEL, NONFASTING 6. Acquired hypothyroidism - ICD9: 244.9, ICD10: E03.9 Stable, Continue current medication unchanged 7. CAD (coronary artery disease), [place] coronary artery - ICD9: 414.01, ICD10: I25.[address] Irby - LIPID PANEL BASIC 8. Recurrent cold sores - ICD9: 054.9, ICD10: B00.1 No recent outbreak - VALACYCLOVIR 500 MG TABLET 9. Rash and nonspecific skin eruption - ICD9: 782.1, ICD10: R21 She notes a pruritic rash that started when she found out about her 's diagnosis oral cancer. Treating with Kenalog cream and cetirizine as needed for itching. - TRIAMCINOLONE ACETONIDE 0.1 % TOPICAL CREAM - CETIRIZINE 10 MG CHEWABLE TABLET Vlad Pyle APRN.CNS Medical Decision Making: Problems: Moderate: 2+ stable chronic illnesses Data: Unique test result(s) reviewed: 3+ Risk: Moderate: Drug management Medical Decision Making Level: 4 - Moderate documented [facility] Telephone encounter Note * Telephone Encounter - Jessica Yung RN - 08/07/2024 10:16 AM EST Andre with [employer] calls to report that he is faxing over forms for PA for Medical Supplies but wouldn't say which supplies. Per previous encounter, Patient not wanting any forms filled out unless she notifies [facility]. Call placed to patient to verify that forms need to be disregarded. Left message for patient to return call. Jessica Yung RN [facility]02-19-2025 Miscellaneous Notes* Telephone Encounter - Jessica Yung RN - 08/07/2024 10:16 AM EST Andre with [employer] calls to report that he is faxing over forms for PA for Medical Supplies but wouldn't say which supplies. Per previous encounter, Patient not wanting any forms filled out unless she notifies [facility]. Call placed to patient to verify that forms need to be disregarded. Left message for patient to return call. Jessica Ynug RN documented in this encounterOhio[facility]01-31-2025 Telephone encounter Note * Telephone Encounter - Jose Hyde MD - 07/19/2024 12:54 PM EST The following approved medication requests have been transmitted electronically. Requested Prescriptions Pending Prescriptions Disp Refills loperamide (IMODIUM) 2 mg cap(s) 100 capsule 2 Sig: Take 2 at onset of loose stools, then 1 after each loose stool as needed up to 6 pills per day Jose Hyde MD [facility]01-31-2025 Miscellaneous Notes* Telephone Encounter - Jose Hyde MD - 07/19/2024 12:54 PM EST The following approved medication requests have been transmitted electronically. Requested Prescriptions Pending Prescriptions Disp Refills loperamide (IMODIUM) 2 mg cap(s) 100 capsule 2 Sig: Take 2 at onset of loose stools, then 1 after each loose stool as needed up to 6 pills per day Jose Hyde MD * Telephone Encounter - Lizzy Marmolejo RN - 07/18/2024 4:17 PM EST The patient has been identified by name and date of : Yes Caregiver verified no other encounters exist for this prescription request: Yes Caregiver confirmed with patient/requestor that no other refills are due, in the near future, with this provider at this time: Yes The last office visit in the department: 05/13/2024 Does the patient have a future office visit with this provider/department: Yes 08/12/2024 Requested Prescriptions Pending Prescriptions Disp Refills loperamide (IMODIUM) 2 mg cap(s) 100 capsule 2 Sig: Take 2 at onset of loose stools, then 1 after each loose stool as needed up to 6 pills per day Lizzy Marmolejo RN documented in this encounterOhiohealth [facility]01-30-2025 Telephone encounter Note * Telephone Encounter - Lizzy Marmolejo RN - 07/18/2024 4:17 PM EST The patient has been identified by name and date of : Yes Caregiver verified no other encounters exist for this prescription request: Yes Caregiver confirmed with patient/requestor that no other refills are due, in the near future, with this provider at this time: Yes The last office visit in the department: 05/13/2024 Does the patient have a future office visit with this provider/department: Yes 08/12/2024 Requested Prescriptions Pending Prescriptions Disp Refills loperamide (IMODIUM) 2 mg cap(s) 100 capsule 2 Sig: Take 2 at onset of loose stools, then 1 after each loose stool as needed up to 6 pills per day Lizzy Marmolejo RN [facility]12-18-[facility]24 NoteHNO ID: [id number] Author: MEHDI RICK MD Service: ? Author Type: Physician Type: Progress Notes Filed: 06/05/2024 11:11 Note Text: [facility] Initial Consult Robi Olivares is a 73 year old year old female who comes for Comprehensive Geriatric Assessment. Pt accompanied by: self Caregivers involved in care: HPI: This is a 73-year-old gentleman with a past medical history of coronary artery disease, hypertension, hyperlipidemia, peripheral arterial disease, chronic diastolic heart failure, acquired hypothyroidism, anemia, MGUS, generalized osteoarthrosis with spinal fusion, fatty liver, Patient has trouble remembering things, and would like to have that evaluated. She has been having memory troubles since the last 5/6 years but it has gotten worse recently. Patient notes that sometimes she just forgets what she was doing 2 mins ago. Has a history of bipolar depression and currently does not feel like her depression is well-controlled. Some of the triggers are her spouse. for 28 years but is finding her spouse to be increasingly picky about her and feeling uncomfortable in her relationship with him. Denies issues with physical abuse but definitely verbally she does not feel very comfortable. Most of her visit she kept going back to her current relationship and how she was not very comfortable with it and how there have been issues. Any Family History of dementia? Not asked this visit Are you or your spouse a ? No Alzheimer's Questionnaire ([facility] 2010) THE CAREGIVER REPORTS THAT THE PATIENT: - Has memory loss - Has worse memory than a few years ago - Misplaces items more than once a month, or so that s/he cannot find them - Frequently has trouble knowing the date, uses cues like newspaper or calendar more than once a day - Has a decreased sense of direction THE CAREGIVER DENIES THAT THE PATIENT: - Repeats questions, statements, or stories in the same day - Forgets appointments or needs caregiver to track events/appointments - Suspects others are moving/hiding/stealing items when s/he cannot find them - Becomes disoriented in unfamiliar places - Becomes more confused outside the home or when traveling - Has difficulty handling money (e.g., calculating tips or change) - Has trouble handling bills or finances - Has trouble remembering to take medications - Has difficulty driving, or drives in way that concerns the caregiver, or has stopped driving - Has trouble using appliances - Has difficulty completing household tasks or repairs - Has significantly reduced recreational activities - Is getting lost in familiar surroundings - Has trouble finding words other than names - Confuses names of family members or friends - Has difficulty recognizing familiar people Alzheimer's Questionnaire score = 6 (21/21 questions answered) Long-term Memory: Difficulty remembering distant events from the past like childhood, previous employment, wedding: YES Behavioral/personality: Withdrawn/Depressed: YES Crying spells: YES Anxious: YES History of aggression: NO History of irritability: YES Apathy:YES Recent changes in weight or appetite: NO Alcohol or Drug use: NO Smoking? NO Sleep: Do you snore loudly (louder than talking or loud enough to be heard through closed doors)? NO Do you often feel tired, fatigued, or sleepy during daytime? YES Has anyone observed you stop breathing during your sleep? NO Are you restless when you sleep at night? NO Do you have problems falling a sleep? NO Do you have problems staying a sleep? Yes Psychosis: Hallucinations or delusions: NO Suicidal or homicidal ideations: NO Obsessions, compulsions, or hoarding: NO Safety: Does pt know his/her address? YES What would you do if there was a fire? Put her dogs out and go out How would you call for help? Yes 911 Does he/she know 911? NO Are there any firearms in the home? YES If yes are they in a secure location? They are in a secure place. Social History: Primary language: Croatian Marital Status: Living situation: Home w/ Spouse Socially engaged? (participates in activities such as clubs, buddhism, community center, sports, games, visiting friends/relatives, etc?): YES Caregiver [place] and Stress Are your feeling overwhelmed? NO Do you have concerns about your own health? NO Are you neglecting your own needs? NO Do you have financial concerns? NO Do your fear loss of employment? NO Do you have concerns about verbal/physical abuse? NO Do you feel that you are still capable of taking care of your relative? NO Are you willing to continue being in the caregiver role? NO B-ADLs: (I=independent,A=assistance,D=dependent) ?Bathing: I, Dressing: I, Toileting: I, Transferring:I, Continence: I, Feeding: I, I-ADLs: Ability to use phone: I, Shopping: I, Cooki (more content not included)...[facility]12-18-2024 History of Present illness Narrative* Mehdi Rick MD - 06/05/2024 9:30 AM EST [facility] Initial Consult Robi Olivares is a 73 year old year old female who comes for Comprehensive Geriatric Assessment. Pt accompanied by: self Caregivers involved in care: HPI: This is a 73-year-old gentleman with a past medical history of coronary artery disease, hypertension, hyperlipidemia, peripheral arterial disease, chronic diastolic heart failure, acquired hypothyroidism, anemia, MGUS, generalized osteoarthrosis with spinal fusion, fatty liver, Patient has trouble remembering things, and would like to have that evaluated. She has been having memory troubles since the last 5/6 years but it has gotten worse recently. Patient notes that sometimes she just forgets what she was doing 2 mins ago. Has a history of bipolar depression and currently does not feel like her depression is well-controlled. Some of the triggers are her spouse. for 28 years but is finding her spouse to be increasingly picky about her and feeling uncomfortable in her relationship with him. Denies issues with physical abuse but definitely verbally she does not feel very comfortable. Most of her visit she kept going back to her current relationship and how she was not very comfortable with it and how there have been issues. Any Family History of dementia? Not asked this visit Are you or your spouse a ? No Alzheimer's Questionnaire ([facility] 2010) THE CAREGIVER REPORTS THAT THE PATIENT: - Has memory loss - Has worse memory than a few years ago - Misplaces items more than once a month, or so that s/he cannot find them - Frequently has trouble knowing the date, uses cues like newspaper or calendar more than once a day - Has a decreased sense of direction THE CAREGIVER DENIES THAT THE PATIENT: - Repeats questions, statements, or stories in the same day - Forgets appointments or needs caregiver to track events/appointments - Suspects others are moving/hiding/stealing items when s/he cannot find them - Becomes disoriented in unfamiliar places - Becomes more confused outside the home or when traveling - Has difficulty handling money (e.g., calculating tips or change) - Has trouble handling bills or finances - Has trouble remembering to take medications - Has difficulty driving, or drives in way that concerns the caregiver, or has stopped driving - Has trouble using appliances - Has difficulty completing household tasks or repairs - Has significantly reduced recreational activities - Is getting lost in familiar surroundings - Has trouble finding words other than names - Confuses names of family members or friends - Has difficulty recognizing familiar people Alzheimer's Questionnaire score = 6 (21/21 questions answered) Long-term Memory: Difficulty remembering distant events from the past like childhood, previous employment, wedding: YES Behavioral/personality: Withdrawn/Depressed: YES Crying spells: YES Anxious: YES History of aggression: NO History of irritability: YES Apathy:YES Recent changes in weight or appetite: NO Alcohol or Drug use: NO Smoking? NO Sleep: Do you snore loudly (louder than talking or loud enough to be heard through closed doors)? NO Do you often feel tired, fatigued, or sleepy during daytime? YES Has anyone observed you stop breathing during your sleep? NO Are you restless when you sleep at night? NO Do you have problems falling a sleep? NO Do you have problems staying a sleep? Yes Psychosis: Hallucinations or delusions: NO Suicidal or homicidal ideations: NO Obsessions, compulsions, or hoarding: NO Safety: Does pt know his/her address? YES What would you do if there was a fire? Put her dogs out and go out How would you call for help? Yes 911 Does he/she know 911? NO Are there any firearms in the home? YES If yes are they in a secure location? They are in a secure place. Social History: Primary language: Croatian Marital Status: Living situation: Home w/ Spouse Socially engaged? (participates in activities such as clubs, buddhism, community center, sports, games, visiting friends/relatives, etc?): YES Caregiver [place] and Stress Are your feeling overwhelmed? NO Do you have concerns about your own health? NO Are you neglecting your own needs? NO Do you have financial concerns? NO Do your fear loss of employment? NO Do you have concerns about verbal/physical abuse? NO Do you feel that you are still capable of taking care of your relative? NO Are you willing to continue being in the caregiver role? NO B-ADLs: (I=independent,A=assistance,D=dependent) ?Bathing: I, Dressing: I, Toileting: I, Transferring:I, Continence: I, Feeding: I, I-ADLs: Ability to use phone: I, Shopping: I, Cooking: I, Housekeeping: I, Laundry: I, Transportation:I, Medications: {I, Handle Finances: I. PMHx: PAST MEDICAL HISTORY Diagnosis Date Acute gastritis without mention of hemorrhage Acute myocardial infarction of other specified sites, episode of care unspecified Myocardial Infarction--DR WHITE Adenomatous colon polyp TA on Jun 2015 colonoscopy (Dr. 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 Davison Severe vulvar dysplasia Vitamin D Deficiency 08/20/2009 Home Meds: Prior to Admission medications : Medication clopidogrel (PLAVIX) 75 mg tablet, Sig Take 1 tablet by mouth once daily., Start Date 05/13/24, End Date , Taking? Yes, Authorizing Provider Jose Hyde MD Medication atorvastatin (LIPITOR) 80 mg tablet, Sig Take 1 tablet by mouth daily at bedtime. For cholesterol., Start Date 05/13/24, End Date , Taking? Yes, Authorizing Provider Jose Hyde MD Medication sertraline (ZOLOFT) 100 mg tablet, Sig Take 1 tablet by mouth once daily., Start Date 05/13/24, End Date , Taking? Yes, Authorizing Provider Joes Hyde MD Medication QUEtiapine (SEROQUEL) 100 mg tablet, Sig Take 1 tablet by mouth daily at bedtime., StartDate 05/13/24, End Date , Taking? Yes, Authorizing Provider Jose Hyde MD Medication sertraline (ZOLOFT) 50 mg tablet, Sig Take 1 tablet by mouth once daily. Take this in addition to 100 mg tablet for a total of 150 mg daily, Start Date 04/29/24, End Date , Taking? Yes, Authorizing Provider Vlad Pyle APRN.WATCH ASSEMBLY INSPECTOR Medication levothyroxine (SYNTHROID) 25 mcg tablet, Sig Take 1 tablet by mouth daily before breakfast., Start Date 03/20/24, End Date , Taking? Yes, Authorizing Provider Romina Chao APRN.BARREL RIBS SOLDERER Medication loperamide (IMODIUM) 2 mg cap(s), Sig Take 2 at onset of loose stools, then 1 after eachloose stool as needed up to 6 pills per day, Start Date 03/20/24, End Date , Taking? Yes, Authorizing Provider Romina Chao APRN.BARREL RIBS SOLDERER Medication amLODIPine (NORVASC) 10 mg tablet, Sig Take 1 tablet by mouth once daily., Start Date 10/12/23, End Date , Taking? Yes, Authorizing Provider Vlad Pyle APRN.WATCH ASSEMBLY INSPECTOR Medication valACYclovir (VALTREX) 500 mg tablet, Sig Take 1 tablet by mouth once daily., Start Date07/25/23, End Date , Taking? Yes, Authorizing Provider Romina Chao APRN.BARREL RIBS SOLDERER Medication nitroglycerin sublingual (NITROQUICK) 0.4 mg SL tablet, Sig Dissolve 1 tablet under the tongue as needed. DISSOLVE ON TONGUE FOR CHEST PAIN. IF NO PAIN RELIEF, CALL 911, Start Date 06/29/22, End Date , Taking? Yes, Authorizing Provider Jose Hyde MD Medication cholecalciferol, vitamin D3, 100 mcg (4,000 unit) cap, Sig Take by mouth., Start Date , End Date , Taking? Yes, Authorizing Provider Nicol Ccf Medication benzonatate (TESSALON PERLE) 100 mg capsule, Sig Take 1 capsule by mouth three times a day as needed for cough., Start Date 05/22/24, End Date , Taking? , Authorizing Provider Marilyn Arechiga PA-C Other OTC med/supplements: Medication Review: - ANY HIGH RISK MEDICATIONS (STOPP CRITERIA): YES ALLERGIES Allergen Reactions Codeine Hives Darvon [Propoxyphen* Hives Morphine Other: See Comments Made tongue swell Penicillins Anaphylaxis Simvastatin Other: See Comments elevated LFTS; had tolerated Lipitor for years without problem Review of Systems Difficulty chew/swallow: No Pain: no Tremor: No Incontinence - During the last 3 months did you leak urine? NO - Type?: mixed incontinence Constipation/Change in bowel habits: NO Vision No vision problems reported Follows with photography colorist:YES Hearing - Hearing aid : Hearing impairment, wears left hearing aid Falls: .: Falls in the last 12 months: None. If + falls: Physical Exam: General: Well-nourished, kempt Ambulatory: without assistance Mobility Aid: None Head: Normocephalic Eyes: EOMI Ears: R TM - b/l ear wax is present , L TM - b/l ear wax is present, nl light reflex Nose: clear Oropharynx: moist without lesions, teeth in good repair Neck: supple and no adenopathy Cardio: regular rate and rhythm Pulmonary: Lungs clear to auscultation bilaterally Extremities: Extremities normal. No deformities, edema, or skin discoloration. Musculoskeletal: Normal Gait Neuro:Deep Tendon reflexes :2/4 , Both Gait: Unsteadiness: NO Shuffling: NO Tremors: NO Slowness: NO Ezequiel Cognitive Exam (MOCA): 22/30 Mini-Mental State Exam (MMSE): 29/30 CDR Dementia Scale 1) Subjective Memory Loss: YES 2) Measurable Memory Loss: YES 3) IADLs: NO 4) BADLs: NO Driving Safely: Yes > 50% 6) Medications: No Level: cdr 0.5 Depression Screening/Evaluation: PHQ 9- 22 (R41.3) Memory deficit Comment: Plan: CONSULT TO GERIATRICS Assessment and Plan: I. Medical /Mental Status/Decision Making Capacity 1-Mentation # Subjective memory loss with measurable memory loss with MMSE 29/30, MOCA score of 22/30 ... Patient does not have functional impairment. Etiology is unclear. Significant contributing factor is bipolar depression which is not controlled at this point in addition there is significant marital conflict. She is not relationship that seems to be triggering her depression and anxiety and has been in the situation for the past many years. It is definitely hard to tease out pseudodementia. I would like to evaluate her today with vitamin B12 which was on the lower side 5 years ago and then do an MRI of her brain to see if there is any vascular components or other issues that could cause or contribute to her cognitive issues. Her thyroid is well-controlled, lipids are well-controlled. For the depression I would like to change her medications over in the future visits to olanzapine and fluoxetineinstead of Zoloft and Seroquel. The main reason being olanzapine may help her gain more weight as she has lost some weight. CDR 0.5 FAST 6 Patient and family are looking for preservation of function. Plan: -Vitamin B-12 levels -MRI of the brain quantitative. -In the future we will try to change her regiment also olanzapine and fluoxetine to see if that helps her gain weight and control his depression better. Other options would be to send her to [facility] as her PHQ score is still 22 and she is not well-controlled with her depression. #Weight loss: Her weight loss over the past year was stabilized. It appears that Wellbutrin was the cause of the weight loss so she has been taken off the medication. 2-Mobility -- Gait is not a huge concern but she is slow, does have some balance issues. She would benefit from exercising every day. Was advised to exercise Plan Exercise was advised. 3-Medications and chronic medical conditions Reviewed her medications. None of them are concerning for memory concerns. She is on Seroquel at 100 mg with the known blackbox warning but she is using it for her bipolar depression. 4- Matters Most - She does have her living will and advance directives in place. REFERRALS AND RECOMMENDATIONS 1. Discussed the cognitive benefits of memory exercises and reviewed examples 2. Discussed the cognitive benefits of physical exercise and socialization Mehdi Rick MD [facility] documented in this encounter[facility] NoteHNO ID: [id number] Author: MARILYN ARECHIGA PA-C Service: ? Author Type: Physician Hand Ironer Type: Progress Notes Filed: 05/22/2024 18:33 Note Text: This note was created using NoteWriter. Subjective Robi Olivares is a 73 year old female. HPI Patient presents with cough and congestion for 1 week. Symptoms started last Monday. Her is positive for COVID as well. She denies chest pain or shortness of breath. She denies history of asthma or COPD. She has had fevers off and on. She took a COVID test yesterday which was positive. No diarrhea or vomiting. Denies ear pain. Review of Systems Constitutional: Positive for fever. HENT: Positive for congestion, rhinorrhea and sore throat. Respiratory: Positive for cough. Negative for shortness of breath and wheezing. Cardiovascular: Negative. Gastrointestinal: Negative. Genitourinary: Negative. Musculoskeletal: Positive for myalgias. Neurological: Positive for headaches. All other systems reviewed and are negative. PAST MEDICAL HISTORY Diagnosis Date Acute gastritis without mention of hemorrhage Acute myocardial infarction of other specified sites, episode of care unspecified Myocardial Infarction--DR WHITE Adenomatous colon polyp TA on Jun 2015 colonoscopy (Dr. 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 Davison Severe vulvar dysplasia Vitamin D Deficiency 08/20/2009 Current Outpatient Medications Medication Sig Dispense Refill clopidogrel (PLAVIX) 75 mg tablet Take 1 tablet by mouth once daily. 30 tablet 11 atorvastatin (LIPITOR) 80 mg tablet Take 1 tablet by mouth daily at bedtime. For cholesterol. 30 tablet 11 sertraline (ZOLOFT) 100 mg tablet Take 1 tablet by mouth once daily. 30 tablet 11 QUEtiapine (SEROQUEL) 100 mg tablet Take 1 tablet by mouth daily at bedtime. 30 tablet 11 sertraline (ZOLOFT) 50 mg tablet Take 1 tablet by mouth once daily. Take this in addition to 100 mg tablet for a total of 150 mg daily 90 tablet 3 levothyroxine (SYNTHROID) 25 mcg tablet Take 1 tablet by mouth daily before breakfast. 90 tablet 1 loperamide (IMODIUM) 2 mg cap(s) Take 2 at onset of loose stools, then 1 after each loose stool as needed up to 6 pills per day 100 capsule 2 amLODIPine (NORVASC) 10 mg tablet Take 1 tablet by mouth once daily. 90 tablet 3 valACYclovir (VALTREX) 500 mg tablet Take 1 tablet by mouth once daily. 90 tablet 3 nitroglycerin sublingual (NITROQUICK) 0.4 mg SL tablet Dissolve 1 tablet under the tongue as needed. DISSOLVE ON TONGUE FOR CHEST PAIN. IF NO PAIN RELIEF, CALL 911 25 tablet 3 cholecalciferol, vitamin D3, 100 mcg (4,000 unit) cap Take by mouth. benzonatate (TESSALON PERLE) 100 mg capsule Take 1 capsule by mouth three times a day as needed for cough. 30 capsule 0 No current facility-administered medications for this visit. 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 W/WO PATCH GRAFT ILIOFEMORAL Left 02-01-16 TOTAL ABDOMINAL HYSTERECT W/WO RMVL TUBE OVARY 1975 Hysterectomy, DOROTHY, BSO;Fibroids/infection VULVECTOMY SIMPLE PARTIAL 10/21/2010 Partial simple posterior vulvectomy and anterior vulvar biopsy FAMILY HISTORY Problem Relation Age of Onset Breast Cancer Mother Alzheimer's Disease Mother Heart Mother Colon Cancer Mother was diagnosed around late 60's Heart Father [place] at 36 yo; when mom was 3 months other (bladder (more content not included)...[facility] 05-22-2024 History of Present illness Narrative* Marilyn Arechiga PA-C - 05/22/2024 6:02 PM EST This note was created using NoteWriter. Subjective Robi Olivares is a 73 year old female. HPI Patient presents with cough and congestion for 1 week. Symptoms started last Monday. Her husbandis positive for COVID as well. She denies chest pain or shortness of breath. She denies history of asthma or COPD. She has had fevers off and on. She took a COVID test yesterday which was positive. No diarrhea or vomiting. Denies ear pain. Review of Systems Constitutional: Positive for fever. HENT: Positive for congestion, rhinorrhea and sore throat. Respiratory: Positive for cough. Negative for shortness of breath and wheezing. Cardiovascular: Negative. Gastrointestinal: Negative. Genitourinary: Negative. Musculoskeletal: Positive for myalgias. Neurological: Positive for headaches. All other systems reviewed and are negative. PAST MEDICAL HISTORY Diagnosis Date Acute gastritis without mention of hemorrhage Acute myocardial infarction of other specified sites, episode of care unspecified Myocardial Infarction--DR WHITE Adenomatous colon polyp TA on Jun 2015 colonoscopy (Dr. 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 Davison Severe vulvar dysplasia Vitamin D Deficiency 08/20/2009 Current Outpatient Medications Medication Sig Dispense Refill clopidogrel (PLAVIX) 75 mg tablet Take 1 tablet by mouth once daily. 30 tablet 11 atorvastatin (LIPITOR) 80 mg tablet Take 1 tablet by mouth daily at bedtime. For cholesterol. 30 tablet 11 sertraline (ZOLOFT) 100 mg tablet Take 1 tablet by mouth once daily. 30 tablet 11 QUEtiapine (SEROQUEL) 100 mg tablet Take 1 tablet by mouth daily at bedtime. 30 tablet 11 sertraline (ZOLOFT) 50 mg tablet Take 1 tablet by mouth once daily. Take this in addition to 100 mgtablet for a total of 150 mg daily 90 tablet 3 levothyroxine (SYNTHROID) 25 mcg tablet Take 1 tablet by mouth daily before breakfast. 90 tablet 1 loperamide (IMODIUM) 2 mg cap(s) Take 2 at onset of loose stools, then 1 after each loose stool as needed up to 6 pills per day 100 capsule 2 amLODIPine (NORVASC) 10 mg tablet Take 1 tablet by mouth once daily. 90 tablet 3 valACYclovir (VALTREX) 500 mg tablet Take 1 tablet by mouth once daily. 90 tablet 3 nitroglycerin sublingual (NITROQUICK) 0.4 mg SL tablet Dissolve 1 tablet under the tongue as needed. DISSOLVE ON TONGUE FOR CHEST PAIN. IF NO PAIN RELIEF, CALL 911 25 tablet 3 cholecalciferol, vitamin D3, 100 mcg (4,000 unit) cap Take by mouth. benzonatate (TESSALON PERLE) 100 mg capsule Take 1 capsule by mouth three times a day as needed forcough. 30 capsule 0 No current facility-administered medications for this visit. PAST SURGICAL HISTORY Procedure Laterality Date COLONOSCOPY 09/06/02 Normal - [place] COLONOSCOPY FLX DX W/COLLJ SPEC WHEN PFRMD 06/24/15 Colonoscopy COLONOSCOPY FLX DX W/COLLJ SPEC WHEN PFRMD 03/14/2017 Colonoscopy COLONOSCOPY FLX DX W/COLLJ SPEC WHEN PFRMD 03/19/2020 Colonoscopy COLONOSCOPY W/BIOPSY SINGLE/MULTIPLE 04/20/10 DILATION & CURETTAGE DX&/THER NONOBSTETRIC 1972 Dilation & curettage EGD 08/30/02 small hiatal hernia - [place] EGD TRANSORAL BIOPSY SINGLE/MULTIPLE 04/20/10 ESOPHAGOGASTRODUODENOSCOPY TRANSORAL [...] W/WO PATCH GRAFT COMMON FEMORAL 08-15-13 RIGHT [employer] TEAEC W/WO PATCH GRAFT ILIOFEMORAL Left 02-01-16 TOTAL ABDOMINAL HYSTERECT W/WO RMVL TUBE OVARY 1976 Hysterectomy, DOROTHY, BSO;Fibroids/infection VULVECTOMY SIMPLE PARTIAL 10/21/2010 Partial simple posterior vulvectomy and anterior vulvar biopsy FAMILY HISTORY Problem Relation Age of Onset Breast Cancer Mother Alzheimer's Disease Mother Heart Mother Colon Cancer Mother was diagnosed around late 60's Heart Father MN at 36 yo; when mom was 3 months other (bladder cancer) Brother Diabetes Brother Stroke Brother 1/2 brother Heart Brother diabetes; had 4 vessel CABG 09/2011; bladder cancer Coronary Artery Disease Paternal Uncle all 5 uncles had MN's in their early 40's Coronary Artery Disease Paternal Uncle Coronary Artery Disease Paternal Uncle Coronary Artery Disease Paternal Uncle Coronary Artery Disease Paternal Uncle Social History Tobacco Use Smoking status: Some Days Current packs/day: 0.00 Average packs/day: 0.3 packs/day for 30.0 years (7.5 ttl pk-yrs) Types: Cigarettes Start date: 06/19/1972 Last attempt to quit: 06/19/2002 Years since quittin.9 Smokeless tobacco: Never Tobacco comments: Stressors noted Vaping Use Vaping status: Never Used Substance Use Topics Alcohol use: Yes Comment: socially Drug use: No Comment: Used marjiana in the past Objective BP 102/70 Pulse 70 Temp 36.4 C (97.6 F) Resp 16 Wt 43.8 kg (96 lb 9 oz) SpO2 96% BMI 16.57 kg/m Physical Exam Vitals reviewed. Constitutional: Appearance: Normal appearance. HENT: Head: Normocephalic and atraumatic. Right Ear: Tympanic membrane, ear canal and external ear normal. Left Ear: Tympanic membrane, ear canal and external ear normal. Nose: Congestion present. Mouth/Throat: Mouth: Mucous membranes are moist. Pharynx: Oropharynx is clear. Cardiovascular: Rate and Rhythm: Normal rate and regular rhythm. Heart sounds: Normal heart sounds. Pulmonary: Effort: Pulmonary effort is normal. Breath sounds: Normal breath sounds. Musculoskeletal: Cervical back: Neck supple. Skin: General: Skin is warm and dry. Findings: No rash. Neurological: Mental Status: She is alert. Assessment and Plan ASSESSMENT/PLAN: 1. COVID-19 - ICD9: 079.89, ICD10: U07.1 Patient is past the window for antiviral treatment. Tessalon sent for cough. Lungs are clear here. Discussed red flags to be seen again. She is agreeable. Marilyn Arechiga PA-C documented in this encounterOhio[facility]12-04-[facility]24 Miscellaneous Notes* Telephone Encounter - Delicia Diop LPN - 05/22/2024 1:57 PM EST Pt called in the let you know she tested positive for COVID and her symptoms have been going on for2 days. Pt reports not feeling well. Pt requested medication. Pt instructed she needs to be evaluated with doing a virtual apt or come in to [facility]. Pt has never done a virtual apt. Pt coming in to [facility]. Pt instructed to wear a mask and agrees. Pt will also bring in her positive test. Delicia Diop LPN documented in this encounterOhio[facility]12-04-2024 Telephone encounter Note * Telephone Encounter - Delicia Diop LPN - 05/22/2024 1:57 PM EST Pt called in the let you know she tested positive for COVID and her symptoms have been going on for2 days. Pt reports not feeling well. Pt requested medication. Pt instructed she needs to be evaluated with doing a virtual apt or come in to [facility]. Pt has never done a virtual apt. Pt coming in to [facility]. Pt instructed to wear a mask and agrees. Pt will also bring in her positive test. Delicia Diop LPN [facility]11-25-[facility]24 History of Present illness Narrative* Ese Rodriguez Mammo Tech - 05/13/2024 2:30 PM EST Radiology Service Progress Note PATIENT NAME: Robi Olivares DATE OF SERVICE: May 13, 2024 TIME: 2:09 PM PATIENT IDENTITY VERIFICATION COMPLETED USING TWO (2) IDENTIFIERS: Name and Date of confirmedby patient verbally. FALL SCREENING: Has the patient had 2 falls in the last year or 1 fall with injury or currently using an Ambulatory Assistive Device (Walker, Cane, Wheelchair, Crutches, etc.)? No PATIENT GENDER DATA: Female. status: : No status: NO. PATIENT RELEVANT IMPLANT DATA REVIEWED: Not Applicable PATIENT PRESENTS WITH AN IMPLANTABLE OR ATTACHED WOOD HEEL FLAP RUBBER: No RADIOLOGY DEPARTMENT: Mammography PERIPHERAL IV DATA: Not applicable SIGNED BY: Urbano Ram May 13, 2024 2:09 PM documented in this encounterOhiohealth Hardin [facility]11-25-2024 NoteHNO ID: [id number] Author: ESE RODRIGUEZ Mammo Tech Service: ? Author Type: Director Of Accounts Payable Type: Progress Notes Filed: 05/13/2024 14:09 Note Text: Radiology Service Progress Note PATIENT NAME: Robi Olivares DATE OF SERVICE: May 13, 2024 TIME: 2:09 PM PATIENT IDENTITY VERIFICATION COMPLETED USING TWO (2) IDENTIFIERS: Name and Date of confirmed by patient verbally. FALL SCREENING: Has the patient had 2 falls in the last year or 1 fall with injury or currently using an Ambulatory Assistive Device (Walker, Cane, Wheelchair, Crutches, etc.)? No PATIENT GENDER DATA: Female. status: : No status: NO. PATIENT RELEVANT IMPLANT DATA REVIEWED: Not Applicable PATIENT PRESENTS WITH AN IMPLANTABLE OR ATTACHED WOOD HEEL FLAP RUBBER: No RADIOLOGY DEPARTMENT: Mammography PERIPHERAL IV DATA: Not applicable SIGNED BY: Urbano Ram May 13, 2024 2:09 [facility]11-25-2024 Instructions* Patient Instructions* Jose Hyde MD - 05/13/2024 11:28 AM EST - Next appointment with Dr. Rick on June 05 to address memory issues. - Maintain a balanced diet and stay hydrated. - Gradually increase physical activity, starting with 5 minutes a couple of days a week, aiming for30 minutes, 5 days a week. Use your treadmill or engage in activities like dancing. - Continue reading and consider learning something new, such as an instrument or hobby, to stimulate cognitive function. - Establish a consistent sleep schedule. Refer to the sleep tips and sleep hygiene information provided in your after-visit summary. - Labs ordered for your July appointment with Rafal to monitor blood sugar (A1c), thyroid function, blood counts, and metabolic panel. - Medication refills for Zoloft, Seroquel, and Plavix have been processed. TIPS FOR A BETTER NIGHT OF SLEEP BEFORE GETTING INTO BED: -Establish a regular routine for bedtime. -Create a positive sleep environment. -Relax before getting into bed. -Avoid alcohol, smoking, caffeine for at least a few hours before bedtime. -Do not go to bed unless you are sleepy. WHILE IN BED: -Turn your clock around (or cover it) and use your alarm if needed. - If you can't fall asleep in 20 minutes (based on your internal sense of time), get out of bed anddo something relaxing or boring (reading, listening to music, etc). Return to bed only when sleepy. -Use your bed only for sleep and sex. IN THE MORNING AND DURING THE DAYTIME: -Wake up at the same time every morning, even on weekends. -Avoid naps during the day. -Avoid caffeinated beverages and food in the evening. -Exercise regularly but not within 4 hours of bedtime. Sleep Hygiene and Good Sleep Habits Establish a regular routine that includes going to bed and getting up at the same time every day, even on weekends. Maintaining a consistent sleep-wake cycle is the arguelles to better health overall. Get an adequate amount of sleep every night. Determine the amount of sleep you need by keeping track of how long you sleep without using an alarm clock for a week. Maintain this personal sleep requirement. Go to bed when you are sleepy. If you have difficulty falling asleep or wake up shortly after goingto sleep, leave the bedroom and read quietly or do some other relaxing activity. Avoid bright lights as this can cue your wake cycle. Develop sleep rituals before going to bed. Do the same things in the same order before going to bedto cue your body to slow down and relax. Avoid stress and worries at bedtime. Address tomorrow's activities, concerns, or distractions earlier in the day. Certain activities, such as listening to soft music, reading, or taking a warm bath, can help you wind down. Use your bed for sleeping and sex only. Often, doing other activities in bed like watching TV, paying bills, or working only serve to initiate worries and concerns. Let your mind associate the bed with sleeping, relaxing, and pleasure. Avoid heavy meals late in the evening; similarly, avoid going to bed hungry. A light snack, especially dairy foods, can help you sleep. Reduce your intake of caffeine and nicotine 4-6 hours before going to sleep. Stimulants interfere with your ability to fall asleep and progress into deep sleep. 200mg caffeine (a large [employer] coffee) taken at 8 AM will impair the sleep architecture that night. Avoid alcohol 4-6 hours before bedtime. As a depressant that slows brain activity, alcohol may initially make you tired, but you will end up having fragmented sleep. In addition, being tired intensifies the effects of alcohol. Alcohol also aggravates snoring and sleep apnea particularly in men. Exercise regularly. Regular exercise, even for 20 minutes, 3 times a week, promotes deep sleep. Don't nap for more than 30 minutes or after 3 PM. Avoiding naps all together will ensure that you are tired at night. Longer naps disrupt the body's ability to stay asleep. Maintain a dark, quiet room to sleep in at a temperature with which you are comfortable. Use sleeping aids conservatively, and avoid using them for more than one or two nights per month. Avoid sleeping pills altogether if you have obstructive sleep apnea because it can be a deadly combination. documented in this encounterOhiohealth [facility]in [facility]11-25-2024 NoteHNO ID: [id number] Author: JOSE HYDE MD Service: ? Author Type: Physician Type: Progress Notes Filed: 05/13/2024 11:50 Note Text: This note was created using OndaViariter. Subjective Robi Olivares is a 73 year old female. Patient presents with: ED Follow-up SUBJECTIVE: Robi Olivares is a 73 year old year old lady here today for ER follow up appointment for review of medical conditions. Robi Olivares is a 73-year-old female, with a history of depression and bipolar disorder, presenting with concerns about short-term memory issues. Robi was recently evaluated in the ED for blurred vision following an anxiety-inducing event. She was concerned about a potential CVA. ED evaluation included laboratory tests and a CT scan. Laboratory results revealed hypokalemia, though she was asymptomatic. 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 The ED team attributed the blurred vision to anxiety. Currently, Robi reports difficulties with short-term memory retention, though her long-term memory remains intact. She has a scheduled appointment with a neurologist on June 05 to address these cognitive concerns. Robi acknowledges suboptimal dietary habits, inadequate hydration, and a lack of regular physical activity. She has a treadmill at home but has not been using it. Additionally, she reports irregular sleep patterns without a consistent sleep schedule. PAST MEDICAL HISTORY Diagnosis Date Acute gastritis without mention of hemorrhage Acute myocardial infarction of other specified sites, episode of care unspecified Myocardial Infarction--DR WHITE Adenomatous colon polyp TA on Jun 2015 colonoscopy (Dr. 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 Davison Severe vulvar dysplasia Vitamin D Deficiency 08/20/2009 Current Outpatient Medications Medication Sig sertraline (ZOLOFT) 50 mg tablet Take 1 tablet by mouth once daily. Take this in addition to 100 mg tablet for a total of 150 mg daily levothyroxine (SYNTHROID) 25 mcg tablet Take 1 tablet by mouth daily before breakfast. loperamide (IMODIUM) 2 mg cap(s) Take 2 at onset of loose stools, then 1 after each loose stool as needed up to 6 pills per day QUEtiapine (SEROQUEL) 100 mg tablet Take 1 [...] this visit. Review of Systems Objective BP 132/78 Pulse 64 Resp 16 Wt 43.9 kg (96 lb 12.5 oz) SpO2 97% BMI 16.61 kg/m? Physical Exam Constitutional: Appearance: Normal appearance. HENT: Head: Normocephalic. Eyes: Conjunctiva/sclera: Conjunctivae normal. Cardiovascular: Rate and Rhythm: Normal rate and regular rhythm. Heart sounds: Normal heart sounds. Pulmonary: Effort: Pulmonary effort is normal. Breath sounds: Normal breath sounds. Skin: General: Skin is warm and dry. Neurological: General: No focal deficit present. Mental Status: She is alert and oriented to person, place, and time. Psychiatric: Attention and Perception: Attention and perception normal. Mood and Affect: Mood normal. Speech: Speech normal. Behavior: Behavior normal. Thought Content: Thought content normal. Judgment: Judgment normal. Hemoglobin A1C (%) Date Value 07/26/2022 5.6 01/31/2022 5.7 05/28/2021 5.7 02/20/2020 5.9 07/17/2019 5.7 12/11/2018 5.5 12/01/2017 5.5 Labs from [facility] reviewed. Also CT and CTA reviewed. Assessment and Plan # Anxiety reaction (F41.1) # Anxiety (F41.9) - Recent episode of blurred vision attributed to anxiety; no evidence of acute cerebrovascular accident on CT scan. - Continue current management with Zoloft. # Hx of blurred vision (Z86.69) - N (more content not included)...[facility]11-25-2024 History of Present illness Narrative* Jose Hyde MD - 05/13/2024 11:06 AM EST This note was created using OndaViariter. Subjective Robi Olivares is a 73 year old female. Patient presents with: ED Follow-up SUBJECTIVE: Robi Olivares is a 73 year old year old lady here today for ER follow up appointment for review of medical conditions. Robi Olivares is a 73-year-old female, with a history of depression and bipolar disorder, presenting with concerns about short-term memory issues. Robi was recently evaluated in the ED for blurred vision following an anxiety-inducing event. She was concerned about a potential CVA. ED evaluation included laboratory tests and a CT scan. Laboratory results revealed hypokalemia, though she was asymptomatic. The CT scan showed a previous cerebe llar CVA and atheromatous changes in the internal carotid arteries, but no significant stenosis or evidence of an acute CVA. The ED team attributed the blurred vision to anxiety. Currently, Robi reports difficulties with short-term memory retention, though her long-term memory remains intact. She has a scheduled appointment with a neurologist on June 05 to address these cognitive concerns. Robi acknowledges suboptimal dietary habits, inadequate hydration, and a lack of regular physical activity. She has a treadmill at home but has not been using it. Additionally, she reports irregular sleep patterns without a consistent sleep schedule. PAST MEDICAL HISTORY Diagnosis Date Acute gastritis without mention of hemorrhage Acute myocardial infarction of other specified sites, episode of care unspecified Myocardial Infarction--DR WHITE Adenomatous colon polyp TA on Jun 2015 colonoscopy (Dr. 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 Davison Severe vulvar dysplasia Vitamin D Deficiency 08/20/2009 Current Outpatient Medications Medication Sig sertraline (ZOLOFT) 50 mg tablet Take 1 tablet by mouth once daily. Take this in addition to 100 mgtablet for a total of 150 mg daily levothyroxine (SYNTHROID) 25 mcg tablet Take 1 tablet by mouth daily before breakfast. loperamide (IMODIUM) 2 mg cap(s) Take 2 at onset of loose stools, then 1 after each loose stool as needed up to 6 pills per day QUEtiapine (SEROQUEL) 100 mg tablet Take 1 [...] this visit. Review of Systems Objective BP 132/78 Pulse 64 Resp 16 Wt 43.9 kg (96 lb 12.5 oz) SpO2 97% BMI 16.61 kg/m Physical Exam Constitutional: Appearance: Normal appearance. HENT: Head: Normocephalic. Eyes: Conjunctiva/sclera: Conjunctivae normal. Cardiovascular: Rate and Rhythm: Normal rate and regular rhythm. Heart sounds: Normal heart sounds. Pulmonary: Effort: Pulmonary effort is normal. Breath sounds: Normal breath sounds. Skin: General: Skin is warm and dry. Neurological: General: No focal deficit present. Mental Status: She is alert and oriented to person, place, and time. Psychiatric: Attention and Perception: Attention and perception normal. Mood and Affect: Mood normal. Speech: Speech normal. Behavior: Behavior normal. Thought Content: Thought content normal. Judgment: Judgment normal. Hemoglobin A1C (%) Date Value 07/26/2022 5.6 01/31/2022 5.7 05/28/2021 5.7 02/20/2020 5.9 07/17/2019 5.7 12/11/2018 5.5 12/01/2017 5.5 Labs from [facility] reviewed. Also CT and CTA reviewed. Assessment and Plan # Anxiety reaction (F41.1) # Anxiety (F41.9) - Recent episode of blurred vision attributed to anxiety; no evidence of acute cerebrovascular accident on CT scan. - Continue current management with Zoloft. # Hx of blurred vision (Z86.69) - No new findings on CT scan; old cerebellar infarct noted. - Blurred vision episode likely secondary to anxiety. # Memory impairment (R41.3) - Short-term memory issues noted; long-term memory intact. - Appointment scheduled with Dr. Rick on June 05 for further evaluation. - Recommended cognitive exercises, including reading and learning new skills or hobbies. - Advised on the importance of regular sleep patterns; provided sleep hygiene information. # Vitamin D deficiency (E55.9) - No specific treatment changes discussed. # IFG (impaired fasting glucose) (R73.01) - Ordered labs including A1c to monitor glucose levels. # Encounter for long-term current use of medication (Z79.899) - Refills for Zoloft, Seroquel, and Plavix processed. # Mixed hyperlipidemia (E78.2) - No specific treatment changes discussed. # Essential hypertension (I10) - No specific treatment changes discussed. # Acquired hypothyroidism (E03.9) - Ordered thyroid function tests as part of upcoming lab work. # 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 (I25.10) - No specific treatment changes discussed. # Weight loss (R63.4) - Encouraged healthy eating and regular exercise to support overall health and cognition. # Hypokalemia (E87.6) - Recent episode with low potassium levels; no symptoms reported. - Previous labs showed normal potassium levels. - Will monitor potassium levels in upcoming lab work. # Persistent depressive disorder (F34.1) - Managed with Zoloft. 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 # Bipolar disorder, current episode depressed, mild or moderate severity, unspecified (HCC) (F31.30) - Managed with Seroquel. I spent a total of 38 minutes on the date of the service which included preparing to see the patient, [id number] patient care, completing clinical documentation, obtaining and/or reviewing separately obtained history, performing a medically appropriate examination, counseling and educating the pat ient/family/caregiver, ordering medications, tests, or procedures, independently interpreting results (not separately reported), and communicating results to the patient/family/caregiver. Jose Hyde MD documented in this encounterOhio[facility]11-11-2024 Telephone encounter Note * Telephone Encounter - Vlad Pyle APRN.CNS - 04/29/2024 11:16 AM EST Does she have to go to [place]? Order changed so she can go to closer to home. [facility] Miscellaneous Notes* Telephone Encounter - Vlad Pyle APRN.CNS - 04/29/2024 11:16 AM EST Does she have to go to [place]? Order changed so she can go to closer to home. * Telephone Encounter - Cynthia Cordova - 04/29/2024 8:17 AM EST Pt stated she didn't want to travel to [facility] for the neuro test consult. documented in this encounterOhiohealth [facility]in [facility]11-11-2024 Telephone encounter Note * Telephone Encounter - Cynthia Cordova - 04/29/2024 8:17 AM EST Pt stated she didn't want to travel to [facility] for the neuro test consult. [facility]11-11-[facility] Instructions* Patient Instructions* Vlad Pyle APRN.CNS - 04/29/2024 7:48 AM EST Increase Zoloft (sertraline) from 100 mg a day to 150 mg a day. Consider seeing a counselor. documented in this encounterOhiohealth [facility]in [facility]11-11-2024 History of Present illness Narrative* Vlad Pyle APRN.CNS - 04/29/2024 7:00 AM EST SUBJECTIVE: DTaP,Tdap,Td Vaccine(2 - Td or Tdap) due on 11/14/2021 Influenza Vaccine(1) due on 02/18/2024 Covid-19 Vaccine( season) due on 02/18/2024 Mammogram Screening due on 04/28/2024 ANDREA Robi Olivares is a 73 year old female. PMH significant for ACTIVE PROBLEM LIST Essential Hypertension Mixed Hyperlipidemia Bipolar Disorder, Unspecified (Hcc) Acquired Hypothyroidism Diverticulosis of Colon (Without Mention of [...] Actinic Damage//Sun-damaged skin Cad (Coronary Artery Disease), [place] Coronary Artery Coronary Stent Carcinoma in Situ, Vulva Severe Vulvar Dysplasia Elevated Lfts Fatty Infiltration of Liver Acne Scars Ibs (Irritable Bowel Syndrome) Pad (Peripheral Artery Disease) ([facility]) Sciatica Due to Displacement of Lumbar Intervertebral Disc Gerd (Gastroesophageal Reflux Disease) Mgus (Monoclonal Gammopathy of Unknown Significance) Iron Deficiency Anemia Scoliosis of Lumbar Spine S/P Lumbar Spinal Fusion Bilateral Carotid Artery Stenosis Chronic Diastolic Chf (Congestive Heart Failure) ([facility]) Presents today regarding memory and weight loss. She was seen at [facility] ER for confusion. Review of OSH ER notes indicate she had blurred vision and was very upset, fighting with . She was concerned she may have been having a stroke and nervous breakdown. She reported drinking alcohol today seen in ER, 3 drinks. No speech difficulties no weakness in extremities. CT brain showed No acute abnormality.Old right cerebellar infarct. Chronic microvascular ischemic disease. CXR negative. CTA head and neck showed: CT/CTA Head AND Neck W/ ContrastNolarge vessel occlusion or significant intracranial vascular abnormality. Moderate atherosclerotic changes right carotid bulb without hemodynamically significant stenosis.Dense atherosclerotic changesleft carotid bulb without hemodynamically significant stenosis.Moderate atherosclerotic changes right intracavernous internal carotid artery without hemodynamic significant stenosis. Moderate atherosclerotic changes left intracavernous internal carotid artery without hemodynamic significant stenosis.Small old right cerebellar hemisphere infarct peripherally. No changes made at this visit. She was last seen 06/[address] Irby for history of coronary artery disease remote coronary intervention most recently 1996 with PCI to the RCA and posterior ventricular branch. She has a history of peripheral artery disease with iliac stents, hypertension, dyslipidemia, chronic diastolic congestive heart failure, carotid artery disease, and ongoing smoking. Bradycardia noted, atenolol discontinued. She was last seen 09/2023 in by Romina Chao CNP. Today reports that she is noting decreased memory for about 6 months. Notes that she has forgotten that she is that the dogs are made a couple coffee and then diabetic and soon afterwards. Able to complete all ADLs and IADLs without difficulty. Notes under significant stress with screaming and yelling at her often. Notes that when she stays with her sister who is undergoing treatment for cancer she feels much improved. Much more peaceful at her house. Indicates she could move in with her but would not be able to bring her dogs She does not want to leave behind. Notes feeling very depressed. Not currently seeing a counselor. No voiced SI HI. Current smoker, contemplating quitting. Current EtOH use. HTN: Ms. Olivraes indicates that she is without headache, chest pain, palpitations, dyspnea, peripheral edema, orthopnea, fatigue or PND. Last 14 Encounter BP Readings: Date: BP: 10/16/2023 130/70 07/17/2023 128/57 06/26/2023 126/70 05/01/2023 116/70 03/28/2023 116/66 08/22/2022 118/68 06/29/2022 128/74 02/07/2022 131/66 01/31/2022 138/72 12/06/2021 138/80 11/02/2021 130/90 10/05/2021 140/84 08/09/2021 150/80 12/17/2020 126/82 Hyperlipidemia. Ms. Olivares reports doing well on current therapy no adverse effects noted Her most recent lipid panels are: Cholesterol, Total (mg/dL) Date Value 07/17/2023 139 07/26/2022 141 05/28/2021 170 12/17/2020 161 HDL Cholesterol (mg/dL) Date Value 07/17/2023 45 07/26/2022 49 05/28/2021 46 12/17/2020 43 LDL Cholesterol (mg/dL) Date Value 07/17/2023 70 07/26/2022 74 05/28/2021 96 12/17/2020 81 Triglyceride (mg/dL) Date Value 07/17/2023 121 07/26/2022 90 05/28/2021 140 12/17/2020 184 Hypothyroidism. She is doing well on current medication. No reported fatigue, no weight gain. TSH Date Value 10/16/2023 3.710 mIU/L 05/01/2023 2.200 mIU/L 05/28/2021 3.470 uU/mL 12/17/2020 4.110 uU/mL ) She notes GERD is controlled with current medication, occasional difficulties but none currently. No report of nausea vomiting constipation BRBPR black or tarry stools. Notes chronic IBS, takes 4 immodium daily, seems to help. 1-4 BM per day, stable. Review of Systems Constitutional: Negative. Respiratory: Negative. Cardiovascular: Negative. Endocrine: Negative. Objective BP 135/74 Pulse 81 Resp 16 Wt 44.6 kg (98 lb 5.2 oz) BMI 16.88 kg/m Physical Exam Vitals and nursing note reviewed. Constitutional: Appearance: Normal appearance. HENT: Head: Normocephalic and atraumatic. Eyes: Conjunctiva/sclera: Conjunctivae normal. Neck: Thyroid: No thyromegaly or thyroid tenderness. Cardiovascular: Rate and Rhythm: Normal rate and regular rhythm. Pulses: Carotid pulses are 2+ on the right side and 2+ on the left side. Radial pulses are 2+ on the right side and 2+ on the left side. Heart sounds: Normal heart sounds. Pulmonary: Effort: Pulmonary effort is normal. Breath sounds: Normal breath sounds. Abdominal: General: Bowel sounds are normal. Palpations: Abdomen is soft. Musculoskeletal: Left lower leg: No edema. Skin: General: Skin is warm and dry. Neurological: General: No focal deficit present. Mental Status: She is alert. ALLERGIES Allergen Reactions Codeine Hives Darvon [Propoxyphen* Hives Morphine Other: See Comments Made tongue swell Penicillins Anaphylaxis Simvastatin Other: See Comments elevated LFTS; had tolerated Lipitor for years without problem Medication levothyroxine (SYNTHROID) 25 mcg tablet Take 1 tablet by mouth daily before breakfast. loperamide (IMODIUM) 2 mg cap(s) Take 2 at onset of loose stools, then 1 after each loose stool as needed up to 6 pills per day QUEtiapine (SEROQUEL) 100 mg tablet Take 1 [...] mcg (4,000 unit) cap Take by mouth. ferrous sulfate 325 mg (65 mg iron) tablet Take 1 tablet by mouth every other day. PAST MEDICAL HISTORY Diagnosis Date Acute gastritis without mention of hemorrhage Acute myocardial infarction of other specified sites, episode of care unspecified Myocardial Infarction--DR WHITE Adenomatous colon polyp TA on Jun 2015 colonoscopy (Dr. 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 Davison Severe vulvar dysplasia Vitamin D Deficiency 08/20/2009 Social History Tobacco Use Smoking status: Some Days Current packs/day: 0.00 Average packs/day: 0.3 packs/day for 30.0 years (7.5 ttl pk-yrs) Types: Cigarettes Start date: 06/19/1972 Last attempt to quit: 06/19/2002 Years since quittin.8 Smokeless tobacco: Never Tobacco comments: Stressors noted Vaping Use Vaping status: Never Used Substance Use Topics Alcohol use: Yes Comment: socially Drug use: No Comment: Used marjiana in the past Latest Ref Rng 03/28/2023 05/01/2023 07/17/2023 10/16/2023 WBC 3.70 - 11.00 k/uL 8.83 11.35 (H) RBC 3.90 - 5.20 m/uL 4.71 4.67 Hemoglobin 11.5 - 15.5 g/dL 15.9 (H) 15.6 (H) Hematocrit 36.0 - 46.0 % 45.8 45.5 MCV 80.0 - 100.0 fL 97.2 97.4 MCH 26.0 - 34.0 pg 33.8 33.4 MCHC 30.5 - 36.0 g/dL 34.7 34.3 RDW-CV 11.5 - 15.0 % 13.1 13.2 Platelet Count 150 - 400 k/uL 233 209 MPV 9.0 - 12.7 fL 11.4 12.2 Neut% % 64.3 Abs Neut (ANC) 1.45 - 7.50 k/uL 7.30 Lymph% % 25.9 Abs Lymph 1.00 - 4.00 k/uL 2.94 Sierra% % 6.9 Abs Sierra <0.87 k/uL 0.78 Eosin% % 1.9 Abs Eosin <0.46 k/uL 0.22 Baso% % 0.7 Abs Baso <0.11 k/uL 0.08 Immature Gran % % 0.3 IMMATURE GRANS (ABS) <0.10 k/uL 0.03 NRBC /100 WBC 0.0 Absolute nRBC <0.01 k/uL <0.01 <0.01 DTYPE Auto Protein, Total 6.3 - 8.0 g/dL 7.1 7.4 7.8 Albumin 3.9 - 4.9 g/dL 4.2 4.4 4.4 Calcium 8.5 - 10.2 mg/dL 9.7 9.6 9.9 Bilirubin, Total 0.2 - 1.3 mg/dL 0.3 0.4 0.3 Alkaline Phosphatase 34 - 123 U/L 79 83 88 AST 13 - 35 U/L 23 19 27 ALT 7 - 38 U/L 14 9 14 Glucose 74 - 99 mg/dL 100 (H) 100 (H) 99 BUN 7 - 21 mg/dL 11 13 10 Creatinine 0.58 - 0.96 mg/dL 0.79 0.84 0.73 Sodium 136 - 144 mmol/L 140 140 142 Potassium 3.7 - 5.1 mmol/L 4.3 3.6 (L) 4.1 Chloride 97 - 105 mmol/L 103 106 (H) 105 CO2 22 - 30 mmol/L 25 23 25 Anion Gap 9 - 18 mmol/L 12 11 12 eGFR >=60 mL/min/1.73m 79 73 87 Cholesterol, Total <200 mg/dL 139 Triglyceride <150 mg/dL 121 HDL Cholesterol >39 mg/dL 45 Non HDL Cholesterol <130 mg/dL 94 Fasting Time hrs 16 VLDL Cholesterol <30 mg/dL 24 TC:HDL Ratio <5.10 3.09 LDL Cholesterol <100 mg/dL 70 LDL:HDL Ratio <2.54 1.56 Iron 41 - 186 ug/dL 65 TIBC 232 - 386 ug/dL 277 Transferrin Saturation 15.0 - 57.0 % 23.5 TSH 0.270 - 4.200 mIU/L 3.910 2.200 3.710 Free T4 0.9 - 1.7 ng/dL 1.5 1.6 1.5 Free T3 2.3 - 4.1 pg/mL 3.0 2.5 2.8 Vitamin D 25 Hydroxy 31.0 - 80.0 ng/mL 65.6 54.7 Ferritin 14.7 - 205.1 ng/mL 198.0 ASSESSMENT/PLAN: 1. Encounter for immunization - ICD9: V03.89, ICD10: Z23 - TDAP PRINTED PHARMACY INSTRUCTIONS - INFLUENZA VACCINE, PRSV FREE, AGE 65+ YR, HIGH DOSE, TRIVALENT (FLUZONE HIGH- DOSE) - today in office - [facility] [place] COVID-19 VACCINE AGE 12+ YR (COMIRNATY) 2. Memory deficit - ICD9: 780.93, ICD10: R41.3 (primary diagnosis) She has noted decreased memory short-term memory of late, forgetting she is visit to help her make coffee. Able to complete all IADLs and ADLs. Interested in further evaluation. Poor performance on memory screening today - CONSULT TO GERIATRICS - Dr Rick - NEUROPSYCHOLOGICAL TESTING CONSULT - for geriatircs 3. Persistent depressive disorder - ICD9: 300.4, ICD10: F34.1 4. History of bipolar disorder - ICD9: V11.1, ICD10: Z86.59 She had severe depression, currently taking quetiapine and sertraline. Will increase sertraline from 100 mg to 150 mg daily. Refer to counseling. Notes home situation is difficult but not ready to make any changes at this time - SERTRALINE 50 MG TABLET - CONSULT TO PSYCHOLOGY 5. Essential hypertension - ICD9: 401.9, ICD10: I10 - controlled - Continue current medication(s) - Encouraged dietary sodium restriction/DASH diet - Recommended regular aerobic exercise. - Recommend home blood pressure monitoring, to bring results in on next visit 6. Encounter for screening mammogram for breast cancer - ICD9: V76.12, ICD10: Z12.31 - Encourage monthly BSE - JG SCREENING W HARJIT 3 mo follow up Vlad Pyle APRN.CNS 6-month follow-up with PCP. Vlad Pyle APRN.CNS Medical Decision Making: Problems: Moderate: 1+ chronic illnesses with change Data: Unique source(s) for external note(s) reviewed: 1 Unique test result(s) reviewed: 3+ Unique test(s) ordered: 1 Risk: Moderate: Drug management Medical Decision Making Level: 4 - Moderate documented in this encounterOhio[facility] NoteHNO ID: [id number] Author: VLAD PYLE APRN.CNS Service: ? Author Type: Nurse Specialist Type: Progress Notes Filed: 04/29/2024 08:10 Note Text: SUBJECTIVE: DTaP,Tdap,Td Vaccine(2 - Td or Tdap) due on 11/14/2021 Influenza Vaccine(1) due on 02/18/2024 Covid-19 Vaccine( - season) due on 02/18/2024 Mammogram Screening due on 04/28/2024 ANDREA Olivares is a 73 year old female. PMH significant for ACTIVE PROBLEM LIST Essential Hypertension Mixed Hyperlipidemia Bipolar Disorder, Unspecified (Hcc) Acquired Hypothyroidism Diverticulosis of Colon (Without Mention of [...] Actinic Damage//Sun-damaged skin Cad (Coronary Artery Disease), [place] Coronary Artery Coronary Stent Carcinoma in Situ, Vulva Severe Vulvar Dysplasia Elevated Lfts Fatty Infiltration of Liver Acne Scars Ibs (Irritable Bowel Syndrome) Pad (Peripheral Artery Disease) (Hcc) Sciatica Due to Displacement of Lumbar Intervertebral Disc Gerd (Gastroesophageal Reflux Disease) Mgus (Monoclonal Gammopathy of Unknown Significance) Iron Deficiency Anemia Scoliosis of Lumbar Spine S/P Lumbar Spinal Fusion Bilateral Carotid Artery Stenosis Chronic Diastolic Chf (Congestive Heart Failure) ([facility]) Presents today regarding memory and weight loss. She was seen at [facility] ER for confusion. Review of OSH ER notes indicate she had blurred vision and was very upset, fighting with . She was concerned she may have been having a stroke and nervous breakdown. She reported drinking alcohol today seen in ER, 3 drinks. No speech difficulties no weakness in extremities. CT brain showed No acute abnormality.Old right cerebellar infarct. Chronic microvascular ischemic disease. CXR negative. CTA head and neck showed: CT/CTA Head AND Neck W/ ContrastNo large vessel occlusion or significant intracranial vascular abnormality. Moderate atherosclerotic changes right carotid bulb without hemodynamically significant stenosis.Dense atherosclerotic changes left carotid bulb without hemodynamically significant stenosis.Moderate atherosclerotic changes right intracavernous internal carotid artery without hemodynamic significant stenosis. Moderate atherosclerotic changes left intracavernous internal carotid artery without hemodynamic significant stenosis.Small old right cerebellar hemisphere infarct peripherally. No changes made at this visit. She was last seen 06/[address] Irby for history of coronary artery disease remote coronary intervention most recently 1996 with PCI to the RCA and posterior ventricular branch. She has a history of peripheral artery disease with iliac stents, hypertension, dyslipidemia, chronic diastolic congestive heart failure, carotid artery disease, and ongoing smoking. Bradycardia noted, atenolol discontinued. She was last seen 09/2023 in by Romina Chao CNP. Today reports that she is noting decreased memory for about 6 months. Notes that she has forgotten that she is that the dogs are made a couple coffee and then diabetic and soon afterwards. Able to complete all ADLs and IADLs without difficulty. Notes under significant stress with screaming and yelling at her often. Notes that when she stays with her sister who is undergoing treatment for cancer she feels much improved. Much more peaceful at her house. Indicates she could move in with her but would not be able to bring her dogs She does not want to leave behind. Notes feeling very depressed. Not currently seeing a counselor. No voiced SI HI. Current smoker, contemplating quitting. Current EtOH use. HTN: Ms. Olivares indicates that she is without headache, chest pain, palpitations, dyspnea, peripheral edema, orthopnea, fatigue or PND. Last 14 Encounter BP Readings: Date: BP: 10/16/2023 130/70 07/17/2023 128/57 06/26/2023 126/70 05/01/2023 116/70 03/28/2023 116/66 08/22/2022 118/68 06/29/2022 128/74 02/07/2022 131/66 01/31/2022 138/72 12/06/2021 138/80 11/02/2021 130/90 10/05/2021 140/84 08/09/2021 150/80 12/17/2020 126/82 Hyperlipidemia. Ms. Olivares reports doing well on current therapy no adverse effects noted Her most recent lipid panels are: Cholesterol, Total (mg/dL) Date Value 07/17/2023 139 07/26/2022 141 05/28/2021 170 12/17/2020 161 HDL Cholesterol (mg/dL) Date Value 07/17/2023 45 07/26/2022 49 05/28/2021 46 12/17/2020 43 LDL Cholesterol (mg/dL) Date V (more content not included)...[facility]10-01-2024 Telephone encounter Note* Telephone Encounter - Analy Lawler RN - 03/19/2024 4:45 PM EDT The patient has been identified by name [...] needed up to 6 pills per day Anayl Lawler RN March 19, 2024 4:45 PM [facility]10-01-[facility]24 Miscellaneous Notes* Telephone Encounter - Analy Lawler RN - 03/19/2024 4:45 PM EDT The patient has been identified by name [...] 19, 2024 4:45 PM documented in this encounterOhiohealth [facility]in [facility]09-25-2024 Telephone encounter Note * Telephone Encounter - Corinna Rodriguez LPN - 03/13/2024 9:35 AM EDT Faxed received from [employer] requesting a copy of office visit notes. Last office visit dated 10/16/23 was printed and faxed back. [facility]09-25-[facility] Miscellaneous Notes* Telephone Encounter - Corinna Rodriguez LPN - 03/13/2024 9:35 AM EDT Faxed received from [employer] requesting a copy of office visit notes. Last office visit dated 10/16/23 was printed and faxed back. documented in this encounterOhiohealth [facility]in [facility]08-01-2024 Telephone encounter Note * Telephone Encounter - Samantha Contreras RN - 01/18/2024 4:48 PM EDT Prescription Refill Information The patient has been [...] Contreras RN January 18, 2024 4:49 PM [facility]08-01-[facility] Miscellaneous Notes* Telephone Encounter - Samantha Contreras RN - 01/18/2024 4:48 PM EDT Prescription Refill Information The patient has been [...] 18, 2024 4:49 PM documented in this encounterOhiohealth [facility]in [facility]07-30-2024 Telephone encounter Note * Telephone Encounter - Benita Jansen LPN - 01/16/2024 1:48 PM EDT Rec'd and discarded. [facility] Miscellaneous Notes* Telephone Encounter - Benita Jansen LPN - 01/16/2024 1:48 PM EDT Rec'd and discarded. * Telephone Encounter - Analy Lawler RN - 01/15/2024 11:35 AM EDT Patient calls and states that if provider [...] if this is legit. Analy Lawler RN documented in this encounterOhiohealth [facility]in [facility]07-29-2024 Telephone encounter Note * Telephone Encounter - Analy Lawler RN - 01/15/2024 11:35 AM EDT Patient calls and states that if provider or office receives and faxes or calls regarding any medical supplies please do not reply. Patient has been receiving lots of calls from medical supply [employer]. Patient is not initiating those and does [...] if this is legit. Analy Lawler RN [facility]07-24-2024 Telephone encounter Note* Telephone Encounter - Celian Saenz LPN - 01/10/2024 1:57 PM EDT Received forms from [employer] requesting chart notes and patient's PCP to [...] needing any of these. Celina Saenz LPN [facility]07-24-2024 Miscellaneous Notes* Telephone Encounter - Celina Saenz LPN - 01/10/2024 1:57 PM EDT Received forms from [employer] requesting chart notes and patient's PCP to [...] these. Celina Saenz LPN documented in this encounterOhiohealth [facility]07-03-2024 Telephone encounter Note * Telephone Encounter - Lizzy Marmolejo RN - 12/20/2023 11:12 AM EDT The patient has been identified by name [...] Marmolejo RN December 20, 2023 11:12 AM [facility]07-03-2024 Miscellaneous Notes* Telephone Encounter - Lizzy Marmolejo RN - 12/20/2023 11:12 AM EDT The patient has been identified by name [...] 20, 2023 11:12 AM documented in this encounterOhiohealth [facility]in [facility]06-07-2024 Telephone encounter Note * Telephone Encounter - Jose Hyde MD - 11/24/2023 6:17 PM EDT The following approved medication requests have been transmitted electronically. Requested Prescriptions Signed Prescriptions Disp Refills sertraline (ZOLOFT) 100 mg tablet 90 tablet 1 Sig: Take 1 tablet by mouth once daily. Authorizing Provider: JOSE HYDE MD [facility]06-07-2024 Miscellaneous Notes* Telephone Encounter - Jose Hyde MD - 11/24/2023 6:17 PM EDT The following approved medication requests have been transmitted electronically. Requested Prescriptions Signed Prescriptions Disp Refills sertraline (ZOLOFT) 100 mg tablet 90 tablet 1 Sig: Take 1 tablet by mouth once daily. Authorizing Provider: JOSE HYDE MD * Telephone Encounter - Perla Garcia - 11/24/2023 11:44 AM EDT Patient is out of this medication, and asking that it be expedited. Patient has been identified by name and date of : Yes Patient phones for refill(s): Requested Prescriptions Pending Prescriptions Disp Refills sertraline (ZOLOFT) 100 mg tablet 90 tablet 3 Sig: Take 1 tablet by mouth once daily. Date of last office visit in primary care: 10/16/2023 Date of next office visit in primary care: 04/16/2024 Please advise. Thank you. Perla Garcia. documented in this encounterOhiohealth [facility]06-07-2024 Telephone encounter Note * Telephone Encounter - Perla Garcia - 11/24/2023 11:44 AM EDT Patient is out of this medication, and asking that it be expedited. Patient has been identified by name and date of : Yes Patient phones for refill(s): Requested Prescriptions Pending Prescriptions Disp Refills sertraline (ZOLOFT) 100 mg tablet 90 tablet 3 Sig: Take 1 tablet by mouth once daily. Date of last office visit in primary care: 10/16/2023 Date of next office visit in primary care: 04/16/2024 Please advise. Thank you. Perla Garcia. [facility]04-30-20[facility] Telephone encounter Note* Telephone Encounter - Corinna Rodriguez LPN - 10/17/2023 4:31 PM EDT PATIENT NOTIFIED OF SAME. [facility]04-30-20[facility] Miscellaneous Notes* Telephone Encounter - Corinna Rodriguez LPN - 10/17/2023 4:31 PM EDT PATIENT NOTIFIED OF SAME. * Telephone Encounter - Romina Chao APRN.CNP - 10/17/2023 4:23 PM EDT Hello. Please call patient and let them know recent labs looked stable and without problems. No changes needed at this time and to keep next scheduled appointment. Thanks. documented in this encounterOhiohealth [facility]in [facility]04-30-2024 Telephone encounter Note * Telephone Encounter - Romina Chao APRN.CNP - 10/17/2023 4:23 PM EDT Hello. Please call patient and let them know recent labs looked stable and without problems. No changes needed at this time and to keep next scheduled appointment. Thanks. [facility]04-29-[facility] History of Present illness Narrative* Romina Chao APRN.CNP - 10/16/2023 2:26 PM EDT SUBJECTIVE Robi Olivares is a 72 year [...] ACTIVE PROBLEM LIST Cad (Coronary Artery Disease), [place] Coronary Artery - 10/14/2010 (A priority) Comment: 04/1997 - [place] Stent - to RCA in [place] in [place]. She had jaw pain, shortness of breath [...] - 08/20/2009 Unspecified Cardiovascular Disease Comment: [place] Irritable Bowel Syndrome - 12/05/2007 Essential Hypertension Comment: Essential hypertension Mixed Hyperlipidemia Comment: Hyperlipidemia Bipolar Disorder, Unspecified ([facility]) Comment: Manic-depressive Acquired Hypothyroidism Comment: Hypothyroidism Diverticulosis [...] from today's visit and in agreement with treatmentplan. Questions answered. Agrees to call the office [...] as well as compliance with taking medications. Age- appropriate health preventative measures were discussed. Return in about 6 months (around 04/16/2024) for Follow up on chronic conditions and medications.. Romina Chao APRN-DEVIN documented in this encounterOhiohealth [facility]in [facility]04-25-2024 Telephone encounter Note * Telephone Encounter - Delaney Disla RN - 10/12/2023 12:32 PM EDT Patient has been identified by name and [...] Please advise. Thank you. Delaney Disla RN. [facility]04-25-2024 Miscellaneous Notes* Telephone Encounter - Delaney Disla RN - 10/12/2023 12:32 PM EDT Patient has been identified by name and [...] you. Delaney Disla RN. documented in this encounterOhiohealth [facility]in [facility]04-02-2024 Miscellaneous Notes* Telephone Encounter - Jessica Yung RN - 09/19/2023 10:59 AM EDT Patient has been identified by name and date of : Yes, Jessica Yung RN Date 09/19/2023 Time 10:59 am Patient [...] primary care: 10/16/2023 Please advise. Thank you. Jessica Yung RN. documented in this encounterOhiohealth [facility]in [facility]02-29-2024 Miscellaneous Notes* Telephone Encounter - Delaney Disla RN - 08/17/2023 2:52 PM EST Patient calling for refill for Seroquel. Advised to call pharmacy. Refill still available. Delaney Disla RN documented in this encounterOhiohealth Hardin [facility]11-13-2023 History of Present illness Narrative* Romina Chao APRN.[employer] - 05/01/2023 1:49 PM EST SUBJECTIVE Robi Olivares is a 72 year [...] chronic diarrhea, no blood in stool. Recent EGDand colonoscopy without issues. Not sleeping well. Has a lot of stress at home with her significantother. Anxiety and depression. Her medications were reviewed [...] ACTIVE PROBLEM LIST Cad (Coronary Artery Disease), [place] Coronary Artery - 10/14/2010 (A priority) Comment: 04/1997 - [place] Stent - to RCA in [place] in [place]. She had jaw pain, shortness of breath [...] sided; Dr. Davison Pad (Peripheral Artery Disease) ([facility]) - 05/15/2013 Ibs (Irritable Bowel Syndrome) Acne [...] Deficiency - 08/20/2009 Unspecified Cardiovascular Disease Comment: aDrvin [place] Irritable Bowel Syndrome - 12/05/2007 Essential Hypertension Comment: Essential hypertension Mixed Hyperlipidemia Comment: Hyperlipidemia Bipolar Disorder, Unspecified ([facility]) Comment: Manic-depressive Acquired Hypothyroidism Comment: Hypothyroidism Diverticulosis [...] marjiana in the past Review of Systems Constitutional: Positive for unexpected weight change. HENT: Negative for trouble swallowing. Gastrointestinal: Positive for diarrhea. Negative for abdominal distention, anal bleeding, blood instool, constipation, nausea, rectal pain and vomiting. OBJECTIVE [...] from today's visit and in agreement with treatmentplan. Questions answered. Agrees to call the office [...] as well as compliance with taking medications. Age- appropriate health preventative measures were discussed. Return in about 5 weeks (around 06/05/2023) for recheck on new medication.. Romina Chao APRN-DEVIN documented in this encounterOhiohealth Hardin [facility]11-13-2023 Miscellaneous Notes* Letter - Coordinator, Mammography - 05/01/2023 11:15 AM EST May 01, 2023 PID: [id number] Robi Olivares [address] [place] [address] Dear Ms. Olivares, We are pleased to [...] report will be [facility] as part of your permanent medical record and are available for your continuing care. Thank you for allowing us to help in meeting your health care needs. Sincerely, Dr. Mohan Interpreting Radiologist [facility] (Normal over 40) documented in this encounterOhiohealth Hardin [facility]11-10-2023 History of Present illness Narrative* Rosemarie Gillespie RT(R) - 04/28/2023 1:30 PM EST Radiology Service Progress Note PATIENT NAME: Robi Olivares DATE OF SERVICE: April 28, 2023 TIME: 1:23 PM PATIENT IDENTITY VERIFICATION COMPLETED USING TWO (2) IDENTIFIERS: Name and Date of confirmedby patient verbally. FALL SCREENING: Has the patient [...] RT Jay(R) April 28, 2023 1:23 PM * Blaire Van Mammo Cesar - 04/28/2023 1:30 PM EST Radiology Service Progress Note PATIENT NAME: Robi Olivares DATE OF SERVICE: April 28, 2023 TIME: 1:28 PM PATIENT IDENTITY VERIFICATION COMPLETED USING TWO (2) IDENTIFIERS: Name and Date of confirmedby patient verbally. FALL SCREENING: Has the patient had 2 falls in the last year or 1 fall with injury or currently using an Ambulatory Assistive Device (Walker, Cane, Wheelchair, Crutches, etc.)? No PATIENT GENDER DATA: Female. status: : No status: NO. PATIENT RELEVANT IMPLANT DATA REVIEWED: Not Applicable RADIOLOGY DEPARTMENT: Mammography PERIPHERAL IV DATA: Not applicable SIGNED BY: Blaire Van Mammo Tech April 28, 2023 1:28 PM documented in this encounterOhiohealth [facility]11-01-2023 Miscellaneous Notes* Telephone Encounter - Delaney Disla RN - 04/19/2023 1:09 PM EDT Spoke with patient. Given message from provider's office. Patient verbalizes understanding. Transferred to pipe threader for mammogram appointment. Delaney Disla RN * Telephone Encounter - Analy Lawler RN - 04/19/2023 12:55 PM EDT TC patient, left message for patient to call back and speak with a triage nurse regarding mammogramorder being placed. Analy Lawler RN * Telephone Encounter - Romina Chao APRN.CNP - 04/19/2023 12:48 PM EDT Order placed, please let patient know. Thanks! * Telephone Encounter - Analy Lawler RN - 04/18/2023 8:50 AM EDT Patient calls and states that it is time for her yearly mammogram. Please place order so that this can be scheduled and completed. Please give patient a call back when order placed. Analy Lawler RN documented in this encounterOhiohealth Hardin [facility]10-10-2023 Instructions* Patient Instructions* Jose Hyde MD - 03/28/2023 2:34 PM EDT Pantoprazole--may try stopping the medication by going every other day for 2 weeks then try stopping med. If have recurrence of reflux, resume medicaiton. Down the road can try lower dose 20mg daily to see of do not need the higher dose. documented in this encounterOhiohealth Hardin [facility]10-10-2023 History of Present illness Narrative* Jose Hyde MD - 03/28/2023 2:30 PM EDT This note was created using NoteWriter. Subjective [...] Checked in 2016 CAD (coronary artery disease) [place] 1996 Diverticulosis of colon (without mention of [...] the date of the service which included [id number] patient care, completing clinical documentation, performing a medically appropriate examination, counseling and educating the patient/family/caregiver, and ordering medications, tests, or procedures. Jose Hyde MD * Jose Hyde MD - 03/28/2023 2:29 PM EDT This note was created using [employer]. Subjective Robi Olivares is a 72 year old female. Patient presents with: Established Patient: Follow up SUBJECTIVE: Robi Olivares is a 72 year old year old lady here today for follow up appointment for review of medical conditions. Stressors noted but doing okay. Fatigue noted Following with Dr. Fletcher. Noted that did not know why was getting pills from [facility]. Reviewed that did not call in July [...] Checked in 2016 CAD (coronary artery disease) [place] 1996 Diverticulosis of colon (without mention of [...] Exam Assessment and Plan documented in this encounterOhiohealth Hardin [facility]08-09-2023 Miscellaneous Notes* Telephone Encounter - Amanda Hummel LPN - 01/25/2023 9:46 AM EDT Patient has been identified by name and date of : Yes, Patient phones for refill(s): Requested Prescriptions Pending Prescriptions Disp Refills pantoprazole (PROTONIX) 40 mg tablet 30 tablet 5 Sig: Take 1 tablet by mouth once daily. Date of last office visit in primary care: 06/29/2022 No future appt scheduled. Last 2 Encounter Wt Readings: Date: Wt: 08/22/2022 51.3 kg (113 lb) 06/29/2022 52.2 kg (115 lb) Previous labs/tests for medication: Not applicable Please advise. Thank you. Amanda Hummel LPN * Telephone Encounter - Donya Dale - 01/25/2023 9:40 AM EDT Patient has been identified by name and [...] once daily. Please review and advise. Donya Hodge documented in this encounterOhiohealth Hardin [facility]07-06-2023 Miscellaneous Notes* Telephone Encounter - Michelle Tejeda RN - 12/22/2022 1:12 PM EDT Called pt and given Dr. Coburn's response. * Telephone Encounter - Kee Coburn MD - 12/22/2022 12:44 PM EDT Let patient know we are not allowing patient's to move from one provider to another since we all closed several months ago due to having too many patient's in our panels. * Telephone Encounter - Zhanna Campoverde - 12/22/2022 9:37 AM EDT Irish, Becka would like to know if Dr Coburn would accept her as a new patient. She knows he is not accepting new patients at this time but she has 5 family members that go to him and she would also like to establish with him. Please advise, thank you. Zhanna documented in this encounterOhiohealth Hardin [facility]04-25-2023 Miscellaneous Notes* Telephone Encounter - Delicia Vivar - 10/11/2022 11:25 AM EDT Pt notified and verbalizes understanding. Delicia Vivar MA * Telephone Encounter - Delicia Vivar - 10/11/2022 11:23 AM EDT ----- Message from Zhanna Tracy APRN.BARREL RIBS SOLDERER sent at 10/11/2022 11:17 AM EDT ----- Please call patient and notify her of stress testing results. Stress testing is without suggestion of ischemia. Normal EKG portion, normal nuclear portion, low risk scan. Thank you! documented in this encounterOhiohealth Hardin [facility]04-24-2023 History of Present illness Narrative* Dina Bryant RN - 10/10/2022 10:38 AM EDT RADIOLOGY SERVICE PROGRESS NOTE SERVICE DATE: 10/10/2022 SERVICE TIME: 944 PATIENT IDENTITY VERIFICATION COMPLETED USING TWO (2) METHODS: Patient confirmed name and Date of verbally. ALLERGIES REVIEWED: Dina Bryant RN MEDICATIONS REVIEWED BY: Dina Bryant RN PROCEDURE TYPE: NM STRESS: 0.4 mg of Lexiscan was administered IV at 1012 over 10 Seconds by Dina Bryant RN Reversal agent used:N/A LOT [id number] EXP 01/17/26 IV SITE: IV palced by nuclear tecnologist POST EXAM PIV STATUS: Discontinued by Cross Roller PATIENT DISCHARGED TO: Nuclear Medicine Department for post stress imaging A Diagnostic radioactive procedure has taken place, with no further precautions necessary other than routine body substance precautions. More information regarding radiation safety can be found usingthis link: [email or web address] SIGNATURE: Dina Bryant RN PATIENT NAME:Robi Olivares DATE: 10/10/22 TIME: 10:38 AM documented in this encounterOhiohealth Hardin [facility]04-03-2023 Miscellaneous Notes* Telephone Encounter - Mary Ann Henao LPN - 09/19/2022 1:18 PM EDT Patient has been identified by name and [...] advise. Thank you. Mary Ann Henao LPN * Telephone Encounter - Nadege Acuna Pss - 09/19/2022 11:46 AM EDT Patient has been identified by name and date of : Yes Requested Prescriptions Pending Prescriptions Disp Refills amLODIPine (NORVASC) 10 mg tablet 90 tablet 3 Sig: Take 1 tablet by mouth once daily. RX INSTRUCTIONS: Patient aware RX will be sent to pharmacy. No need to notify patient. Nadege Acuna Pss documented in this encounterOhiohealth Hardin [facility] Hospital03-10-2023 Miscellaneous Notes* Telephone Encounter - Benita Jansen LPN - 08/26/2022 9:44 AM EST Last seen pcp 06/29/22. Pt needs December appt arranged From Jun appt. Return in about 6 months (around 12/27/2022) for 6 months follow up (make next 2). * Telephone Encounter - Chitra Diop Pss - 08/25/2022 3:48 PM EST Patient has been identified by name and date of : Yes Requested Prescriptions Pending Prescriptions Disp Refills atenolol (TENORMIN) 25 mg tablet 90 tablet 1 Sig: Take 1 tablet by mouth once daily. RX INSTRUCTIONS: Patient aware RX will be sent to pharmacy. No need to notify patient. Chitra Hodge documented in this encounterOhiohealth Hardin [facility]03-06-2023 Instructions* Patient Instructions* Zhanna Tracy APRN.BARREL RIBS SOLDERER - 08/22/2022 3:35 PM EST Images from the original note were not included. CORONARY ARTERY DISEASE View image View image WHAT IS CORONARY ARTERY DISEASE? Coronary artery disease (CAD) is a type of heart disease caused by a problem with the blood vesselsthat bring blood and oxygen to the heart muscle. These arteries are called the coronary arteries. This disease increases your risk for heart attack and sudden . WHAT IS THE CAUSE? Fatty deposits called plaque may build up in blood vessels and make them narrower. The narrowing decreases the amount of blood flow to the heart. Plaque also increases the chance that blood clots mayform and block a blood vessel, which can [...] there are symptoms, the most common one ischest pain, called angina. You may feel: A feeling of tightness or heaviness in the chest Squeezing, pressure, or burning in the chest Angina symptoms usually: Last for 5 minutes or less and go away with rest or medicine such as nitroglycerin. Happen when the heart has to work harder, such as after a heavy meal or during physical activity oremotional stress. Angina may also happen when you [...] Taking an aspirin every day may lower yourrisk for a heart attack or stroke. Not everyone should take aspirin. Daily use of aspirin can causeproblems, such as stomach irritation, bleeding, and hearing [...] the health of your heart. Developed by [employer]. Published by [employer]. Copyright 2014 [employer] and/or one of its subsidiaries. All rights reserved. documented in this encounterOhiohealth Hardin [facility] Hospital03-06-2023 History of Present illness Narrative* Zhanna Tracy APRN.CNP - 08/22/2022 3:16 PM EST Chief Complaint Patient presents with: Established Patient Follow-Up History of Present Illness: Robi Olivares is a 71 year old female who presents for routine follow up. She has a PMhx of ofCAD (s/p remote MN with PCI to RCA 1996 and RPL 2012), R & L iliac artery stents 2012, family hx of premature CAD (father and uncles 30-40s) HTN, HLD, chronic diastolic HF, mitral valve regurgitation, carotid stenosis (mild US 2014), current smoker. She was last seen in office by myself on 2021. Her most recent ischemic evaluation 2018 was [...] been fairly inactive. Last month, she experienced chestdiscomfort that was stabbing in nature. She has [...] Checked in 2017 CAD (coronary artery disease) [place] 1996 Diverticulosis of colon (without mention of [...] curettage EGD 08/30/02 small hiatal hernia - Nicole EGD TRANSORAL BIOPSY SINGLE/MULTIPLE 04/20/10 ESOPHAGOGASTRODUODENOSCOPY TRANSORAL [...] W/WO PATCH GRAFT COMMON FEMORAL 08-15-13 RIGHT AUTO PARTS MANAGER TEAEC W/WO PATCH GRAFT ILIOFEMORAL Left 02-01-16 TOTAL ABDOMINAL HYSTERECT W/WO RMVL TUBE OVARY 1975 Hysterectomy, DROOTHY, BSO;Fibroids/infection VULVECTOMY SIMPLE PARTIAL 10/21/2010 Partial simple posterior vulvectomy and anterior vulvar biopsy FAMILY HISTORY Problem Relation Age of Onset Breast Cancer Mother Alzheimer's Disease Mother Heart Mother Colon Cancer Mother was diagnosed around late 60's Heart Father MN at 36 yo; when mom was 3 months other (bladder cancer) Brother Diabetes Brother Stroke Brother 1/2 brother Heart Brother diabetes; had 4 vessel CABG 09/2011; bladder cancer Coronary Artery Disease Paternal Uncle all 5 uncles had MN's in their early 40's Coronary Artery Disease [...] POSIFLUSH) 10 mL INTRAVENOUS DIRECTED PRN Zhanna Tracy APRN.BARREL RIBS SOLDERER Review of Systems Constitutional: Negative for chills, [...] tingling, sensory change, speech change, focal weakness, lossof consciousness, weakness and headaches. Endo/Heme/Allergies: Does not [...] Position BP Site BP Cuff Size 08/22/22 151 -- -- 118/68 65 Sitting Right Arm Regular Adult Peak Flow Date and Time PF Resp 08/22/221513 -- 18 Last 2 Encounter Wt Readings: [...] stent Assessment and Plan: CAD -s/p remote MN with PCI to RCA 1996 and RPL [...] ASA and statin Carotid stenosis -mild US 2015 -continue ASA, statin Tobacco use -Encouraged cessation [...] 22, 2022, 3:16 PM documented in this encounterOhiohealth Hardin [facility] Hospital02-07-2023 Miscellaneous Notes* Telephone Encounter - Benita Jansen LPN - 07/26/2022 4:01 PM EST Images from the original note were not included. Approved Prior authorization approved Payer: [facility] [id number] Approval Details Authorized from June 19, 2022 to July 26, 2023 Pt notified via my chart. * Telephone Encounter - Benita Jansen LPN - 07/26/2022 3:46 PM EST Per other encounter pt says [facility] needs PA. Electronic PA requested and completed. documented in this encounterOhiohealth Hardin [facility] Hospital02-07-2023 Miscellaneous Notes* Telephone Encounter - Lizzy Marmolejo RN - 07/26/2022 2:05 PM EST Patient calling with a few requests: Pt requesting her pantoprazole 20mg twice daily be changed to 40 mg once daily, with quantity of 30, if PCP agreeable. Pt states this will reduce cost for her with her current insurance plan. Send [facility]. Pended for review. Pt requesting dicyclomine 10 mg be sent to [facility] also-for reduced cost with her insurance plan. [...] her insurance is with [employer] Pharmacy Name: [facility] documented in this encounterOhiohealth Hardin [facility] Hospital01-11-2023 History of Present illness Narrative* Jose Hyde MD - 06/29/2022 6:11 PM EST This note was created using OndaV[employer]. Subjective Robi Olivares is a 71 year [...] capsules area helping. On [employer] now with [facility] for meds. PAST MEDICAL HISTORY Diagnosis Date Acute gastritis without mention of hemorrhage Acute myocardial infarction of other specified sites, episode of care unspecified Myocardial Infarction--DR WHITE Adenomatous colon polyp TA on Jun 2015 colonoscopy (Dr. Brown) Anemia Bipolar disorder, unspecified (HCC) Manic-depressive Blood type O+ Checked in 2016 CAD (coronary artery disease) [place] 1996 Diverticulosis of colon (without mention of [...] Diagnosis ICD-10-CM 1. Coronary artery disease involving [place] coronary artery of [place] heart without angina [id number] clopidogrel (PLAVIX) 75 mg tablet nitroglycerin sublingual [...] which included preparing to see the patient, [id number] patient care, completing clinical documentation, performing a medically appropriate examination, counseling and educating the patient/family/caregiver, and ordering medications, tests,or procedures. Jose Hyde MD documented in this encounterOhiohealth Hardin [facility] Hospital12-02-2022 Miscellaneous Notes* Telephone Encounter - Analy Lawler RN - 05/20/2022 11:20 AM EST Last Office Visit: 12/06/2021 Future Office Visit: 06/29/2022 Requested Prescriptions Pending Prescriptions Disp Refills loperamide (IMODIUM) 2 mg cap(s) 100 capsule 5 Sig: Take one every morning. May repeat as needed. Date of Last Labs: 01/31/2022 documented in this encounterOhiohealth Hardin [facility] Hospital10-27-2022 Miscellaneous Notes* Letter - Mammography Coordinator - 04/14/2022 11:24 AM EDT April 14, 2022 PID: [id number] Robi Olivares [address] [place] [address] Dear Ms. Olivares, We are pleased to [...] report will be [facility] as part of your permanent medical record and are available for your continuing care. Thank you for allowing us to help in meeting your health care needs. Sincerely, Dr. Pyle Interpreting Radiologist [facility] (Normal over 40) documented in this encounterOhiohealth Hardin Memorial Hospital08-30-2022 Miscellaneous Notes* Telephone Encounter - Benita Jansen LPN - 02/15/2022 2:23 PM EDT Last seen pcp 12/06/21. Next appt is 06/29/22 * Telephone Encounter - Mary Hodge - 02/15/2022 1:26 PM EDT Patient has been identified by name and [...] notify patient. Mary Hodge documented in this encounterOhiohealth Hardin [facility] Hospital08-15-2022 Instructions* Patient Instructions* Zhanna Tracy APRN.BARREL RIBS SOLDERER - 01/31/2022 3:27 PM EDT Images from the original note were not included. CORONARY ARTERY DISEASE View image View image WHAT IS CORONARY ARTERY DISEASE? Coronary artery disease (CAD) is a type of heart disease caused by a problem with the blood vesselsthat bring blood and oxygen to the heart muscle. These arteries are called the coronary arteries. This disease increases your risk for heart attack and sudden . WHAT IS THE CAUSE? Fatty deposits called plaque may build up in blood vessels and make them narrower. The narrowing decreases the amount of blood flow to the heart. Plaque also increases the chance that blood clots mayform and block a blood vessel, which can [...] there are symptoms, the most common one ischest pain, called angina. You may feel: A feeling of tightness or heaviness in the chest Squeezing, pressure, or burning in the chest Angina symptoms usually: Last for 5 minutes or less and go away with rest or medicine such as nitroglycerin. Happen when the heart has to work harder, such as after a heavy meal or during physical activity oremotional stress. Angina may also happen when you [...] Taking an aspirin every day may lower yourrisk for a heart attack or stroke. Not everyone should take aspirin. Daily use of aspirin can causeproblems, such as stomach irritation, bleeding, and hearing [...] the health of your heart. Developed by [employer]. Published by [employer]. Copyright 2014 [employer] and/or one of its subsidiaries. All rights reserved. documented in this encounterOhiohealth Hardin [facility] Hospital08-15-2022 History of Present illness Narrative* Zhanna Tracy APRN.CNP - 01/31/2022 3:00 PM EDT Chief Complaint Patient presents with: Follow Up: 6 month History of Present Illness: Robi Olivares is a 71 year old female who presents for routine follow up. She has a PMhx of ofCAD (s/p remote MN with PCI to RCA 1996 and RPL 2012), R & L iliac artery stents 2012, family hx of premature CAD (father and uncles 30-40s) HTN, HLD, chronic diastolic HF, mitral valve regurgitation, carotid stenosis (mild US 2014), current smoker. She was last seen in office by myself on 2021. Her most recent ischemic evaluation 2018 was [...] She is planned for an evaluation at main campus for an upcoming hernia repair surgery. She reportsshe has been more intentionally active walking her newly adopted beagle. She also does routine housework. She is able to carry laundry up and down flight of stairs several times without any cardiac co mplaints. 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 TEAEC W/WO PATCH GRAFT ILIOFEMORAL Left 02-01-16 TOTAL ABDOMINAL HYSTERECT W/WO RMVL TUBE OVARY 1975 Hysterectomy, DOROTHY, BSO;Fibroids/infection VULVECTOMY SIMPLE PARTIAL 10/21/2010 Partial simple posterior vulvectomy and anterior vulvar biopsy FAMILY HISTORY Problem Relation Age of Onset Breast Cancer Mother Alzheimer's Disease Mother Heart Mother Colon Cancer Mother was diagnosed around late 60's Heart Father MN at 36 yo; when mom was 3 months other (bladder cancer) Brother Diabetes Brother Stroke Brother 1/2 brother Heart Brother diabetes; had 4 vessel CABG 09/2011; bladder cancer Coronary Artery Disease Paternal Uncle all 5 uncles had MN's in their early 40's Coronary Artery Disease [...] mL injection (DEFINITY) INTRAVENOUS DIRECTED PRN Zhanna Tracy, SYSTEMS PROGRAMMER ANALYST.BARREL RIBS SOLDERER sodium chloride 0.9 % (flush) 10 mL (BD POSIFLUSH) 10 mL INTRAVENOUS DIRECTED PRN Zhanna Tracy, SYSTEMS PROGRAMMER ANALYST.BARREL RIBS SOLDERER Review of Systems Constitutional: Negative for chills, [...] tingling, sensory change, speech change, focal weakness, lossof consciousness, weakness and headaches. Endo/Heme/Allergies: Does not bruise/bleed easily. Psychiatric/Behavioral: Negative for depression, memory loss and suicidal ideas. The patient is notnervous/anxious and does not have insomnia. Physical Examination: [...] stent Assessment and Plan: CAD -s/p remote MN with PCI to RCA 1996 and RPL [...] Lipitor 80 mg Carotid stenosis -mild US 2015 -continue ASA, statin Tobacco use -Encouraged cessation [...] without anginal complaints. She is of likely oflow estimated risk of myocardial infarction, pulmonary edema, ventricular fibrillation, cardiac arrest or complete heart block. This was reviewed with the patient. She may hold plavix 5 days prior toany invasive procedures Follow up in 6 months. Patient to call with any issues or concerns prior to then. Electronically signed by Zhanna Tracy APRN.CNP on January 31, 2022, 1:49 PM documented in this encounterOhiohealth Hardin [facility] Hospital06-03-2022 Miscellaneous Notes* Telephone Encounter - Benita Jansen LPN - 11/19/2021 2:36 PM EDT Last seen pcp 05/05/21. Next appt arranged 12/06/21. * Telephone Encounter - Chitra Hodge - 11/19/2021 2:13 PM EDT Patient has been identified by name and [...] pharmacy. No need to notify patient. Chitra Hodge documented in this encounterOhiohealth Hardin [facility] Hospital05-17-2022 Miscellaneous Notes* Telephone Encounter - Franchesca Head LPN - 11/02/2021 10:[address] Scott office, was transferred to scheduling, patient has appointment to see Dr Steven Scott on 01/24/22 at 9:00 am. * Telephone Encounter - Franchesca Head LPN - 11/01/2021 1:40 PM EDT Patient was to see Dr Steven Scott, at [facility], per telephone note 10/16/21. Needed order placed for referral and and to be scheduled. Patient has appointment tomorrow 11/02/21, for pain at times on left side, with Dr Plascencia, documented in this encounterOhiohealth Hardin [facility] Hospital05-03-2022 Miscellaneous Notes* Telephone Encounter - Franchesca Head LPN - 10/19/2021 4:50 PM EDT Please let the patient know that I contacted the hernia specialist at [facility] and they agree that given her complicated past and open procedure would be the preference. I also feel that the type of procedure that she requires called a open TAR will be better performed by the experts at [facility]. I will forward my note to Dr. Steven Scott and his office should contact the patient for follow-up. Per Dr Plascencia Called patient updated on above note from Dr Thais Head LPN * Telephone Encounter - Marshall Plascencia MD - 10/19/2021 4:22 PM EDT Please let the patient know that I contacted the hernia specialist at [facility] and they agree that given her complicated past and open procedure would be the preference. I also feel that the type of procedure that she requires called a open TAR will be better performed by the experts at [facility]. I will forward my note to Dr. Steven Scott and his office should contact the patient for follow-up. documented in this encounterOhiohealth Hardin [facility] Hospital04-25-2022 History of Present illness Narrative* RT Ky(R) - 10/11/2021 10:20 AM EDT Radiology Service Progress Note PATIENT NAME: Robi Olivares DATE OF SERVICE: October 11, 2021 TIME: 4:01 PM PATIENT IDENTITY VERIFICATION COMPLETED USING TWO (2) IDENTIFIERS: Name and Date of confirmedby patient verbally. FALL SCREENING: Has the patient [...] 11, 2021 4:01 PM documented in this encounterOhiohealth Hardin [facility] Hospital04-08-2022 Miscellaneous Notes* Telephone Encounter - Jose Hyde MD - 09/24/2021 12:20 PM EDT Will assume patient wants to stay on [...] BRETT: No Authorizing Provider: JOSE HYDE MD * Telephone Encounter - Antwon Dennison RN - 09/24/2021 12:06 PM EDT Patient has been identified by name and [...] you. Antwon Dennison RN documented in this encounterOhiohealth Hardin [facility] Hospital03-25-2022 Miscellaneous Notes* Telephone Encounter - Katrin Mata RN - 09/10/2021 8:13 AM EDT Pt notified of below results. Verbalized understanding. No further questions or concerns. * Telephone Encounter - Zhanna Villasenor LPN - 09/09/2021 2:01 PM EDT Left message for to call [facility] for test results. [facility] phone number provided. Zhanna Villasenor LPN * Telephone Encounter - Zhanna Villasenor LPN - 09/09/2021 2:00 PM EDT ----- Message from Isabela Dupree APRN.[employer] sent at 09/09/2021 2:00 PM EDT ----- Please call the patient and report echo results revealed preserved LV Function 69% and stable mild LVH. Patient has mild MR. Recommend continue current medical therapy. Thanks, Isabela Dupree APRN.[employer] [facility] of Past illness Narrative* Problem Noted Date Resolved Date Iron deficiency anemia due to chronic blood loss 06/24/2015 06/24/2015 Family history of colon cancer 06/24/2015 0 06/24/2015 Acute myocardial infarction of other specified sites, episode of care unspecified 09/12/2016 Overview: Myocardial Infarction documented as of this encounter (statuses as of 09/17/2021) [facility] of Past illness Narrative* Problem Noted Date Resolved Date Iron deficiency anemia due to chronic blood loss 06/24/2015 06/24/2015 Family history of colon cancer 06/24/2015 0 06/24/2015 Acute myocardial infarction of other specified sites, episode of care unspecified 09/12/2016 Overview: Myocardial Infarction documented as of this encounter (statuses as of 09/24/2021) [facility] of Past illness Narrative* Problem Noted Date Resolved Date Iron deficiency anemia due to chronic blood loss 06/24/2015 06/24/2015 Family history of colon cancer 06/24/2015 0 06/24/2015 Acute myocardial infarction of other specified sites, episode of care unspecified 09/12/2016 Overview: Myocardial Infarction documented as of this encounter (statuses as of 10/12/2021) [facility] of Past illness Narrative* Problem Noted Date Resolved Date Iron deficiency anemia due to chronic blood loss 06/24/2015 06/24/2015 Family history of colon cancer 06/24/2015 0 06/24/2015 Acute myocardial infarction of other specified sites, episode of care unspecified 09/12/2016 Overview: Myocardial Infarction documented as of this encounter (statuses as of 10/12/2021) [facility] of Past illness Narrative* Problem Noted Date Resolved Date Iron deficiency anemia due to chronic blood loss 06/24/2015 06/24/2015 Family history of colon cancer 06/24/2015 0 06/24/2015 Acute myocardial infarction of other specified sites, episode of care unspecified 09/12/2016 Overview: Myocardial Infarction documented as of this encounter (statuses as of 10/19/2021) [facility] of Past illness Narrative* Problem Noted Date Resolved Date Iron deficiency anemia due to chronic blood loss 06/24/2015 06/24/2015 Family history of colon cancer 06/24/2015 0 06/24/2015 Acute myocardial infarction of other specified sites, episode of care unspecified 09/12/2016 Overview: Myocardial Infarction documented as of this encounter (statuses as of 11/19/2021) [facility] illness Narrative* Problem Noted Date Resolved Date Iron deficiency anemia due to chronic blood loss 06/24/2015 06/24/2015 Family history of colon cancer 06/24/2015 0 06/24/2015 Acute myocardial infarction of other specified sites, episode of care unspecified 09/12/2016 Overview: Myocardial Infarction documented as of this encounter (statuses as of 2021) [facility] illness Narrative* Problem Noted Date Resolved Date Iron deficiency anemia due to chronic blood loss 06/24/2015 06/24/2015 Family history of colon cancer 06/24/2015 0 06/24/2015 Acute myocardial infarction of other specified sites, episode of care unspecified 09/12/2016 Overview: Myocardial Infarction documented as of this encounter (statuses as of 02/01/2022) [facility] illness Narrative* Problem Noted Date Resolved Date Iron deficiency anemia due to chronic blood loss 06/24/2015 06/24/2015 Family history of colon cancer 06/24/2015 0 06/24/2015 Acute myocardial infarction of other specified sites, episode of care unspecified 09/12/2016 Overview: Myocardial Infarction documented as of this encounter (statuses as of 02/15/2022) [place] [address] History of Past illness Narrative* Problem Noted Date Resolved Date Iron deficiency anemia due to chronic blood loss 06/24/2015 06/24/2015 Family history of colon cancer 06/24/2015 0 06/24/2015 Acute myocardial infarction of other specified sites, episode of care unspecified 09/12/2016 Overview: Myocardial Infarction documented as of this encounter (statuses as of 04/04/2022) [facility] Narrative* Problem Noted Date Resolved Date Iron deficiency anemia due to chronic blood loss 06/24/2015 06/24/2015 Family history of colon cancer 06/24/2015 0 06/24/2015 Acute myocardial infarction of other specified sites, episode of care unspecified 09/12/2016 Overview: Myocardial Infarction documented as of this encounter (statuses as of 04/16/2022) [facility] Narrative* Problem Noted Date Resolved Date Iron deficiency anemia due to chronic blood loss 06/24/2015 06/24/2015 Family history of colon cancer 06/24/2015 0 06/24/2015 Acute myocardial infarction of other specified sites, episode of care unspecified 09/12/2016 Overview: Myocardial Infarction documented as of this encounter (statuses as of 05/20/2022) [facility] illness Narrative* Problem Noted Date Resolved Date Iron deficiency anemia due to chronic blood loss 06/24/2015 06/24/2015 Family history of colon cancer 06/24/2015 0 06/24/2015 Acute myocardial infarction of other specified sites, episode of care unspecified 09/12/2016 Overview: Myocardial Infarction documented as of this encounter (statuses as of 07/26/2022) [facility] Narrative* Problem Noted Date Resolved Date Iron deficiency anemia due to chronic blood loss 06/24/2015 06/24/2015 Family history of colon cancer 06/24/2015 0 06/24/2015 Acute myocardial infarction of other specified sites, episode of care unspecified 09/12/2016 Overview: Myocardial Infarction documented as of this encounter (statuses as of 07/27/2022) [facility] illness Narrative* Problem Noted Date Resolved Date Iron deficiency anemia due to chronic blood loss 06/24/2015 06/24/2015 Family history of colon cancer 06/24/2015 0 06/24/2015 Acute myocardial infarction of other specified sites, episode of care unspecified 09/12/2016 Overview: Myocardial Infarction documented as of this encounter (statuses as of 07/29/2022) [facility] illness Narrative* Problem Noted Date Resolved Date Iron deficiency anemia due to chronic blood loss 06/24/2015 06/24/2015 Family history of colon cancer 06/24/2015 0 06/24/2015 Acute myocardial infarction of other specified sites, episode of care unspecified 09/12/2016 Overview: Myocardial Infarction documented as of this encounter (statuses as of 08/23/2022) [facility] Narrative* Problem Noted Date Resolved Date Iron deficiency anemia due to chronic blood loss 06/24/2015 06/24/2015 Family history of colon cancer 06/24/2015 0 06/24/2015 Acute myocardial infarction of other specified sites, episode of care unspecified 09/12/2016 Overview: Myocardial Infarction documented as of this encounter (statuses as of 08/26/2022) [facility] illness Narrative* Problem Noted Date Resolved Date Iron deficiency anemia due to chronic blood loss 06/24/2015 06/24/2015 Family history of colon cancer 06/24/2015 0 06/24/2015 Acute myocardial infarction of other specified sites, episode of care unspecified 09/12/2016 Overview: Myocardial Infarction documented as of this encounter (statuses as of 09/19/2022) [facility] Past illness Narrative* Problem Noted Date Resolved Date Iron deficiency anemia due to chronic blood loss 06/24/2015 06/24/2015 Family history of colon cancer 06/24/2015 0 06/24/2015 Acute myocardial infarction of other specified sites, episode of care unspecified 09/12/2016 Overview: Myocardial Infarction documented as of this encounter (statuses as of 10/11/2022) [facility] Narrative* Problem Noted Date Resolved Date Iron deficiency anemia due to chronic blood loss 06/24/2015 06/24/2015 Family history of colon cancer 06/24/2015 0 06/24/2015 Acute myocardial infarction of other specified sites, episode of care unspecified 09/12/2016 Overview: Myocardial Infarction documented as of this encounter (statuses as of 10/12/2022) [facility] illness Narrative* Problem Noted Date Resolved Date Iron deficiency anemia due to chronic blood loss 06/24/2015 06/24/2015 Family history of colon cancer 06/24/2015 0 06/24/2015 Acute myocardial infarction of other specified sites, episode of care unspecified 09/12/2016 Overview: Myocardial Infarction documented as of this encounter (statuses as of 12/22/2022) [facility] Past illness Narrative* Problem Noted Date Diagnosed Date Resolved Date Iron deficiency anemia due t o chronic blood loss 06/24/2015 06/24/2015 Family history of colon cancer 06/24/2015 06/24/2015 Acute myocardial infarction of other specified sites, episode of care unspecified 09/12/2016 Overview: Myocardial Infarction documented as of this encounter (statuses as of 01/25/2023) [facility] illness Narrative* Problem Noted Date Diagnosed Date Resolved Date Iron deficiency anemia due t o chronic blood loss 06/24/2015 06/24/2015 Family history of colon cancer 06/24/2015 06/24/2015 Acute myocardial infarction of other specified sites, episode of care unspecified 09/12/2016 Overview: Myocardial Infarction documented as of this encounter (statuses as of 04/19/2023) [facility] Narrative* Problem Noted Date Diagnosed Date Resolved Date Iron deficiency anemia due t o chronic blood loss 06/24/2015 06/24/2015 Family history of colon cancer 06/24/2015 06/24/2015 Acute myocardial infarction of other specified sites, episode of care unspecified 09/12/2016 Overview: Myocardial Infarction documented as of this encounter (statuses as of 04/29/2023) [facility] illness Narrative* Problem Noted Date Diagnosed Date Resolved Date Iron deficiency anemia due t o chronic blood loss 06/24/2015 06/24/2015 Family history of colon cancer 06/24/2015 06/24/2015 Acute myocardial infarction of other specified sites, episode of care unspecified 09/12/2016 Overview: Myocardial Infarction documented as of this encounter (statuses as of 04/29/2023) [facility] Narrative* Problem Noted Date Diagnosed Date Resolved Date Iron deficiency anemia due t o chronic blood loss 06/24/2015 06/24/2015 Family history of colon cancer 06/24/2015 06/24/2015 Acute myocardial infarction of other specified sites, episode of care unspecified 09/12/2016 Overview: Myocardial Infarction documented as of this encounter (statuses as of 05/02/2023) [facility] Past illness Narrative* Problem Noted Date Diagnosed Date Resolved Date Iron deficiency anemia due t o chronic blood loss 06/24/2015 06/24/2015 Family history of colon cancer 06/24/2015 06/24/2015 Acute myocardial infarction of other specified sites, episode of care unspecified 09/12/2016 Overview: Myocardial Infarction documented as of this encounter (statuses as of 05/03/2023) [facility] Narrative* Problem Noted Date Diagnosed Date Resolved Date Iron deficiency anemia due t o chronic blood loss 06/24/2015 06/24/2015 Family history of colon cancer 06/24/2015 06/24/2015 Acute myocardial infarction of other specified sites, episode of care unspecified 09/12/2016 Overview: Myocardial Infarction documented as of this encounter (statuses as of 08/18/2023) [facility] Past illness Narrative* Problem Noted Date Diagnosed Date Resolved Date Iron deficiency anemia due t o chronic blood loss 06/24/2015 06/24/2015 Family history of colon cancer 06/24/2015 06/24/2015 Acute myocardial infarction of other specified sites, episode of care unspecified 09/12/2016 Overview: Myocardial Infarction documented as of this encounter (statuses as of 09/19/2023) [facility] Author Monico Patterson [facility] Note Date/Time October 24, 2024 3:20pm [facility] Medical Records Department [address] [place] [address] Discharge Summary 10/24/24 1409 MR#: [id number] Acct: [id number] Name: ROBI OLIVARES Rep #:[id number] : 1950 73 From: Monico Suggs PCP: Dr. Jose Hyde MD Status:AD IN Location: [place] [address]- Providers Date of Admission: 10/21/24 Date of Discharge: 10/24/24 Primary Care Physician: Dr. Jose Hyde MD Consultations 10/21/24 20:59 Consult: Gastroenterology Routine Consulting Provider: [facility] Reason for Consult: Diarrhea with Melena and Abd Pain with ~20# wt. loss. EMERGENT Consult: No MD Notified: Yes Date Notified: 10/21/24 Time Notified: 18:42 Method of Notification: ED Physician Initiated Reason For Visit: HYPOKALEMIA, HYPERCALCEMIA, DIARRHEA WITH MELENA Diagnosis Discharge Diagnosis (1) Acute hypokalemia: Status: Acute Code(s): E87.6 - Hypokalemia (2) Hypophosphatemia: Status: Acute Code(s): E83.39 - Other disorders of phosphorus metabolism (3) Hypercalcemia: Status: Acute Code(s): E83.52 - Hypercalcemia (4) Abdominal pain, vomiting, and diarrhea: Status: Acute Code(s): R10.9 - Unspecified abdominal pain; R11.10 - Vomiting, unspecified; R19.7 - Diarrhea, unspecified (5) Colitis: Status: Acute Code(s): K52.9 - Noninfective gastroenteritis and colitis, unspecified (6) Melena: Status: Acute Code(s): K92.1 - Melena (7) Adverse drug reaction: Status: Acute Code(s): T50.905A - Adverse effect of unspecified drugs, medicaments and biological substances, initial encounter Qualifiers: Encounter type: initial encounter Qualified Code(s): T50.905A - Adverseeffect of unspecified drugs, medicaments and biological substances, initial encounter (8) Dilated cbd, acquired: Status: Acute Code(s):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 Date Comments Refill Request 07/18/2024 Reason Comments F/U 3 Month Reason Comments Hospital F/U Reason Comments Diarrhea Care Teams (unrecognized sec tion and content) Ui Developer Designer Relationship Specialty Start Date End Date Jose Hyde MD [address] [place], [place] [id number] PCP - General 05/27/08 Sergio White [address] [facility] [address] [address] Cardiology 07/22/16 Ui Developer Designer Relationship Specialty Start Date End Date Jose Hyde MD [address] [place], [place] [id number] PCP - General 05/27/08 Sergio White [address] [address] Cardiology 07/22/16 Ui Developer Designer Relationship Specialty Start Date End Date Jose Hyde MD [address] [place] [address] PCP - General 05/27/08 Sergio White [address] [place] [address] Cardiology 07/22/16 Ui Developer Designer Relationship Specialty Start Date End Date Jose Hyde MD [address] [place] [address] PCP - General 05/27/08 Sergio White [address] [place] [address] Cardiology 07/22/16 Ui Developer Designer Relationship Specialty Start Date End Date Jose Hyde MD [address] [place] [address] PCP - General 05/27/08 Sergio White [address] [place] [address] Cardiology 07/22/16 Ui Developer Designer Relationship Specialty Start Date End Date Jose Hyde MD [address] [place] [address] PCP - General 05/27/08 Sergio White [address] [place] [address] Cardiology 07/22/16 Ui Developer Designer Relationship Specialty Start Date End Date Jose Hyde MD [address] [place] [address] PCP - General 05/27/08 Sergio White [address] [place] [address] Cardiology 07/22/16 Ui Developer Designer Relationship Specialty Start Date End Date Jose Hyde MD [address] [place] [address] PCP - General 05/27/08 Sergio White [address] [place] [address] Cardiology 07/22/16 Ui Developer Designer Relationship Specialty Start Date End Date Jose Hyde MD [address] [place] [address] PCP - General 05/27/08 Sergio White [address] [place] [address] Cardiology 07/22/16 Ui Developer Designer Relationship Specialty Start Date End Date Jose Hyde MD [address] [place] [address] PCP - General 05/27/08 Sergio White [address] [place] [address] Cardiology 07/22/16 Ui Developer Designer Relationship Specialty Start Date End Date Jose Hyde MD [address] [place] [address] PCP - General 05/27/08 Sergio White [address] [place] [address] Cardiology 07/22/16 Ui Developer Designer Relationship Specialty Start Date End Date Jose Hyde MD [address] [place] [address] PCP - General 05/27/08 Sergio White [address] [place] [address] Cardiology 07/22/16 Ui Developer Designer Relationship Specialty Start Date End Date Jose Hyde MD [address] [place] [address] PCP - General 05/27/08 Sergio White [address] [place] [address] Cardiology 07/22/16 Ui Developer Designer Relationship Specialty Start Date End Date Jose Hyde MD [address] [place] [address] PCP - General 05/27/08 Sergio White [address] [place] [address] Cardiology 07/22/16 Ui Developer Designer Relationship Specialty Start Date End Date Jose Hyde MD [address] [place] [address] PCP - General 05/27/08 Sergio White [address] [place] [address] Cardiology 07/22/16 Ui Developer Designer Relationship Specialty Start Date End Date Jose Hyde MD [address] [place] [address] PCP - General 05/27/08 Sergio White [address] [place] [address] Cardiology 07/22/16 Ui Developer Designer Relationship Specialty Start Date End Date Jose Hyde MD [address] [place] [address] PCP - General 05/27/08 Sergio White [address] [place] [address] Cardiology 07/22/16 Ui Developer Designer Relationship Specialty Start Date End Date Jose Hyde MD [address] [place] [address] PCP - General 05/27/08 Sergio White [address] [place] [address] Cardiology 07/22/16 Team Status: Active Member Role Status Dates Dr. Jose Hyde MD Primary Care Provider Active Team Status: Inactive Member Role Status Dates Dr. Jose Hyde MD Primary Care Provider Active Dr. Orlin Fletcher MD Attending Provider, Referring Provider Active Ui Developer Designer Relationship Specialty Start Date End Date Jose Hyde MD [address] [place] [address] PCP - General 05/27/08 Sergio White [address] [address] Cardiology 07/22/16 Ui Developer Designer Relationship Specialty Start Date End Date Jose Hyde MD [address] [place] [address] PCP - General 05/27/08 Sergio White MD [address] [place] [address] Cardiology 07/22/16 Ui Developer Designer Relationship Specialty Start Date End Date Jose Hyde MD [address] [place] [address] PCP - General 05/27/08 Sergio White MD [address] [place] [address] Cardiology 07/22/16 Ui Developer Designer Relationship Specialty Start Date End Date Jose Hyde MD [address] [place] [address] PCP - General 05/27/08 Sergio White MD [address] [place] [address] Cardiology 07/22/16 Ui Developer Designer Relationship Specialty Start Date End Date Jose Hyde MD [address] [place] [address] PCP - General 05/27/08 Sergio White MD [address] [place] [address] Cardiology 07/22/16 Ui Developer Designer Relationship Specialty Start Date End Date Jose Hyde MD [address] [place] [address] PCP - General 05/27/08 Sergio White MD [address] [place] [address] Cardiology 07/22/16 Ui Developer Designer Relationship Specialty Start Date End Date Jose Hyde MD [address] [place] [address] PCP - General 05/27/08 Sergio White MD [address] [place] [address] Cardiology 07/22/16 Ui Developer Designer Relationship Specialty Start Date End Date Jose Hyde MD [address] [place] [address] PCP - General 05/27/08 Sergio White MD [address] [address] Cardiology 07/22/16 Ui Developer Designer Relationship Specialty Start Date End Date Jose Hyde MD [address] [place] [address] PCP - General 05/27/08 Sergio White MD [address] [address] Cardiology 07/22/16 Ui Developer Designer Relationship Specialty Start Date End Date Jose Hyde MD [address] [place] [address] PCP - General 05/27/08 Sergio White MD [address] [address] Cardiology 07/22/16 Ui Developer Designer Relationship Specialty Start Date End Date Jose Hyde MD [address] [place] [address] PCP - General 05/27/08 Sergio White MD [address] [address] Cardiology 07/22/16 Ui Developer Designer Relationship Specialty Start Date End Date Jose Hyde MD [address] [place] [address] PCP - General 05/27/08 Sergio White MD [address] [address] Cardiology 07/22/16 Ui Developer Designer Relationship Specialty Start Date End Date Jose Hyde MD [address] [place] [address] PCP - General 05/27/08 Sergio White MD [address] [address] Cardiology 07/22/16 Ui Developer Designer Relationship Specialty Start Date End Date Jose Hyde MD [address] [place] [address] PCP - General 05/27/08 Sergio White MD [address] [address] Cardiology 07/22/16 Ui Developer Designer Relationship Specialty Start Date End Date Jose Hyde MD [address] [place] [address] PCP - General 05/27/08 Sergio White MD [address] [place] [address] Cardiology 07/22/16 Vlad Pyle, SYSTEMS PROGRAMMER ANALYST.WATCH ASSEMBLY INSPECTOR [address] [place] [address] Portuguese Tutor Internal Medicine 05/27/24 Romina Chao SYSTEMS PROGRAMMER ANALYST.BARREL RIBS SOLDERER [address] [facility] [place] [address] Portuguese Tutor Internal Medicine 05/27/24 Ui Developer Designer Relationship Specialty Start Date End Date Jose Hyde MD [address] [place] [address] PCP - General 05/27/08 Sergio White MD [address] [place] [place] [address], [place] [address] Cardiology 07/22/16 Vlad Pyle, SYSTEMS PROGRAMMER ANALYST.WATCH ASSEMBLY INSPECTOR [address] [place] [address] Portuguese Tutor Internal Medicine 05/27/24 Romina Chao SYSTEMS PROGRAMMER ANALYST.BARREL RIBS SOLDERER [address] [facility] [place] [address] Portuguese Tutor Internal Medicine 05/27/24 Ui Developer Designer Relationship Specialty Start Date End Date Jose Hyde MD [address] [place] [address] PCP - General 05/27/08 Sergio White MD [address] [place] [address] Cardiology 07/22/16 Vlad Pyle, SYSTEMS PROGRAMMER ANALYST.WATCH ASSEMBLY INSPECTOR [address] [place] [address] [facility] Internal Medicine 05/27/24 Romina Chao SYSTEMS PROGRAMMER ANALYST.BARREL RIBS SOLDERER [address] [facility] [place] [address] [facility] Internal Medicine 05/27/24 Ui Developer Designer Relationship Specialty Start Date End Date Jose Hyde MD [address] [place] [address] PCP - General 05/27/08 Sergio White MD [address] [facility] [address] [place] [address] Cardiology 07/22/16 Vlad Pyle, SYSTEMS PROGRAMMER ANALYST.WATCH ASSEMBLY INSPECTOR [address] [place] [address] [facility] Internal Medicine 05/27/24 Romina Chao, SYSTEMS PROGRAMMER ANALYST.BARREL RIBS SOLDERER [address] [place] [address] [facility] Internal Medicine 05/27/24 Ui Developer Designer Relationship Specialty Start Date End Date Jose Hyde MD [address] [place] [address] PCP - General 05/27/08 Sergio White MD [address] [place] [address] Cardiology 07/22/16 Vlad Pyle, SYSTEMS PROGRAMMER ANALYST.WATCH ASSEMBLY INSPECTOR [address] [place] [address] [facility] Internal Medicine 05/27/24 Romina Chao, SYSTEMS PROGRAMMER ANALYST.BARREL RIBS SOLDERER [address] [place] [address] [facility] Internal Medicine 05/27/24 Ui Developer Designer Relationship Specialty Start Date End Date Jose Hyde MD [address] [place] [address] PCP - General 05/27/08 Sergio White MD [address] [address] Cardiology 07/22/16 Vlad Pyle, SYSTEMS PROGRAMMER ANALYST.WATCH ASSEMBLY INSPECTOR [address] [place] [address] [facility] Internal Medicine 05/27/24 Romina Chao, SYSTEMS PROGRAMMER ANALYST.BARREL RIBS SOLDERER [address] [place] [address] [facility] Internal Medicine 09/10/24 Team Status: Inactive Member Role Status Dates Dr. Jose Hyde MD Primary Care Provider Active Start: October 15, 2024 End: October 15, 2024 Dr. Mick Mejias MD Attending Provider Active Sta rt: October 15, 2024 End: October 15, 2024 Dr. Mick Mejias MD Emergency Provider Active Sta rt: October 15, 2024 End: October 15, 2024 Team Status: Inactive Member Role Status Dates Dr. Jose Hyde MD Primary Care Provider Active Start: October 15, 2024 End: October 15, 2024 Ed Physician Provider Emergency Provider Active Start: October 15, 2024 End: October 15, 2024 Team Status: Inactive Member Role Status Dates Dr. Jose Hyde MD Primary Care Provider Active Start: October 21, 2024 End: October 24, 2024 Dr. Jonas Samuels MD Emergency Provider Active S tart: October 21, 2024 End: October 24, 2024 Dr. Mango Cornejo DO Admit Provider Active Start: October 21, 2024 End: October 24, 2024 Dr. Mango Cornejo DO Referring Provider Active Start: October 21, 2024 End: October 24, 2024 Dr. Mango Cornejo DO Other Provider Active Start: October 21, 2024 End: October 24, 2024 Dr. Monico Patterson MD Attending Provider Active Start: October 21, 2024 End: October 24, 2024 Team Status: Active Member Role Status Dates Dr. Jose Hyde MD Primary Care Provider Active Start: October 22, 2024 Dr. Jonas Samuels MD Emergency Provider Active S tart: October 22, 2024 Dr. Mango Cornejo DO Admit Provider Active Start: October 22, 2024 Dr. Mango Cornejo DO Referring Provider Active Start: October 22, 2024 Dr. Mango Cornejo DO Other Provider Active Start: October 22, 2024 Dr. Monico Patterson MD Attending Provider Active Start: October 22, 2024 Dr. Monico Patterson MD Other Provider Active Sta rt: October 22, 2024 Team Status: Active Member Role Status Dates Dr. Jose Hyde MD Primary Care Provider Active Start: October 22, 2024 Dr. Jonas Samuels MD Emergency Provider Active S tart: October 22, 2024 Dr. Mango Cornejo DO Admit Provider Active Start: October 22, 2024 Dr. Mango Cornejo DO Referring Provider Active Start: October 22, 2024 Dr. Mango Cornejo DO Other Provider Active Start: October 22, 2024 Dr. Monico Patterson MD Other Provider Active Sta rt: October 22, 2024 Dr. Heber Borrego DO Attending Provider Active Start: October 22, 2024 Team Status: Active Member Role Status Dates Dr. Jose Hyde MD Primary Care Provider Active Start: October 23, 2024 Dr. Jonas Samuels MD Emergency Provider Active S tart: October 23, 2024 Dr. Mango Cornejo DO Admit Provider Active Start: October 23, 2024 Dr. Mango Cornejo DO Referring Provider Active Start: October 23, 2024 Dr. Mango Cornejo DO Other Provider Active Start: October 23, 2024 Dr. Monico Patterson MD Attending Provider Active Start: October 23, 2024 Dr. Monico Patterson MD Other Provider Active Sta rt: October 23, 2024 Team Status: Active Member Role Status Dates Dr. Jose Hyde MD Primary Care Provider Active Start: October 24, 2024 Dr. Jonas Samuels MD Emergency Provider Active S tart: October 24, 2024 Dr. Mango Cornejo DO Admit Provider Active Start: October 24, 2024 Dr. Mango Cornejo DO Referring Provider Active Start: October 24, 2024 Dr. Mango Cornejo DO Other Provider Active Start: October 24, 2024 Dr. Monico Patterson MD Attending Provider Active Start: October 24, 2024 Dr. Monico Patterson MD Other Provider Active Sta rt: October 24, 2024 Ui Developer Designer Relationship Specialty Start Date End Date Jose Hyde MD [address] [place], [place] [id number] PCP - General 05/27/08 Sergio White MD [address] [id number] Cardiology 07/22/16 Vlad Pyle, SYSTEMS PROGRAMMER ANALYST.WATCH ASSEMBLY INSPECTOR [address] [facility], [place] [address] Portuguese Tutor Internal Medicine 05/27/24 11/05/24 Romina Chao, SYSTEMS PROGRAMMER ANALYST.BARREL RIBS SOLDERER [address] [facility], [place] [address] Portuguese Tutor Internal Medicine 09/10/24 Ui Developer Designer Relationship Specialty Start Date End Date Jose Hyde MD [address] [place] [address] PCP - General 05/27/08 Sergio White MD [address] [place] [address] Cardiology 07/22/16 Romina Chao SYSTEMS PROGRAMMER ANALYST.BARREL RIBS SOLDERER [address] [place] [address] Portuguese Tutor Internal Medicine 09/10/24 Vlad Pyle APRN.WATCH ASSEMBLY INSPECTOR [address] [place] [address] Portuguese Tutor Internal Medicine 11/06/24 Ui Developer Designer Relationship Specialty Start Date End Date Jose Hyde MD [address] [place] [address] PCP - General 05/27/08 Sergio White MD [address] [place] [address] Cardiology 07/22/16 Romina Chao SYSTEMS PROGRAMMER ANALYST.BARREL RIBS SOLDERER [address] [place] [address] Portuguese Tutor Internal Medicine 09/10/24 Vlad Pyle APRN.WATCH ASSEMBLY INSPECTOR [address] [place] [address] Portuguese Tutor Internal Medicine 11/06/24 Goals (unrecognized section and content) Goals may be documented in a n alternate section FOR RECORDS PERTAINING TO PATIENTS WHO ARE [...] BE BASED ON THE PRIMARY CLINICAL RECORDS. [facility]. provides no warranty or guarantee of the accuracy or completeness of information in this document.
--- NOTE | 2024-12-12 22:50 | RAD_ITS ---
PROCEDURE: HIP, UNI W/ PELVIS 2-3 VIEWS 12/12/2024 REASON FOR EXAM: TRAUMA TECHNIQUE: HIP, UNI W/ PELVIS 2-3 VIEWS COMPARISON: No FINDINGS: Lower lumbar spine scoliosis, degeneration, prior surgery. Intact pelvic ring. Mild bilateral hip osteoarthritis. Extensive aortoiliac calcifications and previous stenting. Acute, nondisplaced right intertrochanteric femoral neck fracture. No dislocation. RAD/HIP, UNI W/ Pelvis 2-3 Views IMPRESSION: Acute right intertrochanteric femoral neck fracture. Reading Location: [place] [address]
[2024-12-12 23:00] VITALS: BP 117/104; PULSE 68; RESP 18; O2SAT 97
--- NOTE | 2024-12-12 23:32 | PCM.HP.STD ---
HPI - General General Date of Admission: 12/12/24 Date of Service: 12/12/24 Chief Complaint: R hip pain, fall. HPI Narrative The patient is a 73 y/o F w/ PMHx: CKD stage III unclear subtype per GFR trending, Anxiety and Depression/Bipolar disorder, Rheumatoid arthritis, IBS, CAD s/p PCI, HTN, HLD, PAF, Former Tobacco use, Hypothyroidism, Former EtOH abuse, recently discharged 10/24/2024 following admission for significant diarrhea with melanotic stools, abdominal pain and approximate 20 pound weight loss with electrolyte disturbances felt secondary to likely GI losses/dehydration with unremarkable CT with GI consulted with planned outpatient follow-up endoscopy/colonoscopy with noted choledocholithiasis with ERCP on 10/22/2024 with biliary cingulotomy and balloon extraction with plan follow-up in the office with GI for review of cytology and pathology who presents to the [facility] ED on 12/12/2024 with history of mechanical fall in her home unfortunately while walking in the hallway slipping falling onto her right hip with significant debility and pain following unable to even get up with no loss of consciousness or head trauma prompting eventual ED evaluation given severity and debility. In the ED she reports that her pain prior to ED pain intervention was possibly 3-4 out of 10 in severity and she is currently pain-free. In the ED patient is stating that she has not taken any of the medications she is reported as being on the medication reconciliation for several months including the Plavix. She denies having restarted this given her paperwork from recent discharge encourage continuation of her home medications. Workup in the ED included T99, heart rate 77, BP 117/73, respiratory rate 17, 99% on room air with most recent repeat vitals heart rate 68, BP 117/104, respiratory rate 18, 97% on room air, plain film of the right hip and pelvis with an acute right intertrochanteric femoral neck fracture, EKG with SR without acute evidence of ischemia. In the ED patient administered fentanyl 50 mcg IV x 1. ED discussed case with Dr. Najera. [facility] Medical History Abnormal magnetic resonance cholangiopancreatography (MRCP) Alcohol abuse Bipolar disorder Depression Chronic pain Rheumatoid arthritis Osteoporosis GERD (gastroesophageal reflux disease) Former smoker Atrial fibrillation Hypertension Myocardial infarct Migraines Atherosclerotic heart disease of [place] coronary artery without angina pectoris Pure hypercholesterolemia IBS (irritable bowel syndrome) Hypothyroidism Presence of stent in coronary artery (~08/08/12) Atherosclerotic heart disease of [place] coronary artery without angina pectoris Benign essential HTN Arteriosclerotic heart disease (ASHD) Home Medications ?Medication ?Instructions ?Recorded ?Last Taken ?Type atenolol 25 mg tablet 25 mg PO DAILY 06/04/13 02/01/16 05:00 History clopidogrel 75 mg tablet 75 mg PO DAILY 06/04/13 08/19/24 History nitroglycerin 0.4 mg sublingual 0.4 mg sublingual Q5M PRN Chest 06/04/13 Unknown History tablet Pain bupropion HCl 100 mg tablet,12 hr 100 mg PO DAILY 06/28/18 Unknown History sustained-release (Wellbutrin SR) sertraline 100 mg tablet 100 mg PO DAILY 06/28/18 08/19/24 History levothyroxine 50 mcg tablet 50 mcg PO DAILY 06/10/19 Unknown History atorvastatin 80 mg tablet 80 mg PO QHS #30 tabs 12/16/19 08/19/24 Rx amlodipine 10 mg tablet 10 mg PO DAILY HTN 10/21/24 08/19/24 History sertraline 50 mg tablet 50 mg PO DAILY 10/21/24 08/19/24 History valacyclovir 500 mg tablet 500 mg PO DAILY 10/21/24 08/19/24 History pantoprazole 40 mg tablet,delayed 20 mg (1/2 x 40 mg) PO DAILY 30 10/24/24 02/01/16 05:00 Rx release days #0 tabs potassium, sodium phosphates 280 1 packet PO TID 5 days #15 ea 10/24/24 Unknown Rx mg-160 mg-250 mg oral powder packet saliva substitute combo no.9 15 ml mucous membrane 4X/DAYCM 1 10/24/24 Unknown Rx (Biotene Dry Mouth Oral Rinse month #1,000 mL mouthwash) cholecalciferol (vitamin D3) 125 125 mcg PO DAILY 12/12/24 Unknown History mcg (5,000 unit) tablet Allergy/AdvReac Type Severity Reaction Status Date / Time codeine Allergy Severe Swelling Verified 12/12/24 21:44 propoxyphene HCl (From Allergy Severe Other Verified 12/12/24 21:44 Darvon) Penicillins AdvReac Intermediate Nausea/Vom/ Verified 12/12/24 21:44 Diarrhea Family History (Updated 12/13/24 @ 01:[address] Emily Garza MD) Brother CVA (cerebral vascular accident) Heart disease Cancer Mother Heart disease Father No problems noted. Surgical History History of appendectomy Presence of coronary angioplasty implant and graft (~08/08/12) History of aorto-femoral bypass History of heart artery stent History of left knee surgery History of hysterectomy History of lumbar surgery History of hysterectomy PAD (peripheral artery disease) Social History (Updated 12/13/24 @ 01:[address] Emily Garza MD) household members: spouse Smoking Status: Current some day smoker tobacco type: cigarettes alcohol intake: never substance use type: does not use ROS ROS Narrative Admission Review of Systems: CONSTITUTIONAL: No weight loss, fever, chills, + weakness or fatigue. HEENT: Eyes: No visual loss, blurred vision, double vision or yellow sclerae. Ears, Nose, Throat: No hearing loss, sneezing, congestion, runny nose or sore throat. SKIN: No rash or itching, lesions, wounds. CARDIOVASCULAR: No chest pain, chest pressure or chest discomfort, palpitations, edema, orthopnea, syncopal events. RESPIRATORY: No shortness of breath, cough or sputum, wheezing, hemoptysis. GASTROINTESTINAL: No anorexia, nausea, vomiting or diarrhea, abdominal pain, melena, BRBPR. GENITOURINARY: No dysuria, frequency, urgency or retention. NEUROLOGICAL: No headache, dizziness, syncope, paralysis, ataxia, numbness or tingling in the extremities, focal weakness, change in bowel or bladder control, seizure. MUSCULOSKELETAL: + muscle, back pain, joint pain or stiffness. HEMATOLOGIC: No anemia. + Easy bleeding/bruising. LYMPHATICS: No enlarged nodes. No history of splenectomy. PSYCHIATRIC: + History of anxiety depression/bipolar disorder. ENDOCRINOLOGIC: No reports of sweating, cold or heat intolerance. No polyuria or polydipsia. ALLERGIES: No history of asthma, hives, eczema or rhinitis. Vital Signs Vital Signs Vital Signs: 12/12/24 21:37 12/12/24 22:36 12/12/24 23:00 Temperature 99 F Temperature Source Oral Pulse Rate 77 69 68 Respiratory Rate 17 14 18 Blood Pressure 117/73 125/86 H 117/104 H Blood Pressure Mean 87 99 108 Pulse Ox 99 96 97 Oxygen Delivery Method Room Air Room Air Physical Exam Narrative Physical Examination: General: Awake, alert, oriented x 3 and cooperative, laying in the ED bed, denies any discomfort to the hip at this time. Skin: Normal color, normal turgor, no icterus, no cyanosis except occasional stage ecchymoses, abrasions. HEENT: AT/NC, EOMI, PERRLA, mildly dry MM, no carotid bruits or JVD noted. Lungs: Diminished, greater bases, poor effort, no rales, ronchi or wheezing. Heart: Regular rate and rhythm; no gallop, rub audible. Abdomen: Soft, thin cachectic habitus, NTTP, ND, mildly hyperactive BS, no HSM. Extremities: No cyanosis, clubbing, or edema, status post fall with right hip fracture with peripheral pulses intact.. Neurological: Patient awake, alert, oriented as noted, cognitive function intact; pupils equally reactive to light and accommodation, cranial nerves grossly normal, moving all extremities expect expected limitation right lower extremity given fall with right hip fracture, strength accordingly severely globally decreased. Psychiatric: Affect appears fatigued otherwise normal, no acute evidence of depressive or anxiety feelings but does have underlying history. Results Lab / Micro Data 12/12/24 23:25 12/12/24 23:25 Imaging Radiology Impression Hip/Pelvis X-Ray 12/12/24 22:50 IMPRESSION: Acute right intertrochanteric femoral neck fracture. Reading Location: [place] [address] Assessment & Plan Assessment/Plan (1) Closed intertrochanteric fracture of right hip: PLAN: Plan The patient is a 73 y/o F w/ PMHx: CKD stage III unclear subtype per GFR trending, Anxiety and Depression/Bipolar disorder, Rheumatoid arthritis, IBS, CAD s/p PCI, HTN, HLD, PAF, Former Tobacco use, Hypothyroidism, Former EtOH abuse, recently discharged 10/24/2024 following admission for significant diarrhea with melanotic stools, abdominal pain and approximate 20 pound weight loss with electrolyte disturbances felt secondary to likely GI losses/dehydration with unremarkable CT with GI consulted with planned outpatient follow-up endoscopy/colonoscopy with noted choledocholithiasis with ERCP on 10/22/2024 with biliary cingulotomy and balloon extraction with plan follow-up in the office with GI for review of cytology and pathology who presents to the [facility] ED on 12/12/2024 with history of mechanical fall in her home unfortunately while walking in the hallway slipping falling onto her right hip with significant debility and pain following unable to even get up with no loss of consciousness or head trauma prompting eventual ED evaluation given severity and debility. #1. General debility, right hip pain s/p mechanical fall w/ right hip fracture: Plain film noting plain film of the right hip and pelvis with an acute right intertrochanteric femoral neck fracture. Orthopedic surgery consulted from ED. Will admit to [facility], will hold Plavix therapy with last intake on day of presentation which unfortunately will prolong operative intervention timeline, will judiciously hydrate as needed, will continue Smith catheter placement, monitor I/Os, frequent positioning, fall precautions, pain/anti-emetic regimen. PT/OT following operative intervention. CM consulted for discharge planning. Per NSQIP assessment patient certainly at least moderate risk given underlying cardiac history with most recent echocardiogram noted 03/28/2017 with LV function normal, EF 65%, mild MVR, mild TVR, RVSP 29 mmHg at that time, will request BNP and echocardiogram at this time and if not marked appearing may potentially consider transition to OR pending also cardiology assessment given higher risk. #2. Chronic Kidney Disease Stage III, unclear subtype per GFR trending: Admission BUN/Cr [], baseline renal function primarily 0.6-0.9 repeat BMP in AM. #3. CAD: Status post PCI, will hold Plavix in preparation for operative intervention needs, will continue statin, atenolol, not on GODWIN inhibitor/ARB. #4. Anxiety depression/bipolar disorder: Will continue patient home sertraline, Seroquel, bupropion home regimen, encourage continued outpatient follow-up and evaluation as previously arranged. #5. Hypertension: Continue home regimen including amlodipine, atenolol, PRN hydralazine. #6. Hyperlipidemia: Will continue patient on statin therapy. #7. Severe protein calorie malnutrition: Patient with recent admission as noted with significant GI losses at that time but persistent weight loss over several months, will cautiously consult nutrition for input to maximize preoperative assessment. #8. PAF: Holding Plavix as noted in preparation for operative intervention, not on any chronic anticoagulant therapy for currently's but clarified to be certain, continue atenolol home regimen. #9. Hypothyroidism: Will continue patient home levothyroxine regimen. #10. Former alcohol abuse: Encourage continued sobriety. #11. Former tobacco use: Encourage continued tobacco cessation, recently stop smoking. #12. GERD: Will continue patient on PPI. #13. DVT prophylaxis: SCDs pending orthopedic surgery evaluation and preparation for OR. #14. CODE status: Patient reports having a living will in place but not specifically healthcare power of sports attorney set up but notes her would be her medical decision-maker if necessary. Discussed CODE status at length including difference between FULL code, DNR-CCA and DNR-CC status. Following discussions about the differences in these status, requested DNR-CCA with allowance of intubation. Several examples were given including more respiratory focused incidences with the decision as noted DNR CCA with intubation. Advanced Care Planning Face to Face Time: 16 minutes. Charges/Coding Visit Charges Inpatient E&M: 60427 Init Hosp L3 Procedures Hospitalists Procedures: 10956 Advncd Care Plan 30 Min
[2024-12-12 23:40] VITALS: BP 121/64; PULSE 68; RESP 14; TEMP 36.8; O2SAT 100; BMI 17.7
[2024-12-13] VITALS (8 sets, daily range): BP systolic 106–140; BP diastolic 56–70; PULSE 56–74; RESP 14–18; TEMP 36.3–37.1; O2SAT 92–99; BMI 14.3
--- OUTSIDE RECORDS SUMMARY | 2024-12-13 00:05 | XMS RPT_ITS | CCD ---
Author Organization [facility] Care Team Providers Care Director Hospice Operations Name Role Phone STANISLAW KONG (PA) Unavailable Unavail able Rohan Celeste Unavailable Unavailable Blanka RN, Penelope Patel Unavailable Jose Hyde MD Primary Care Provider Sergio White Unavailable Jose Hyde MD Primary Care Provider Sergio White Unavailable Sergio White Unavailable Jose Hyde MD Primary Care Provider Sergio White Unavailable Sergio White MD Unavailable Jose Hyde MD Primary Care Provider Pyle MICROBIOLOGY DIRECTOR.SEISMOMETER OPERATOR, Vlad Unavailable Jeremie MICROBIOLOGY DIRECTOR.INSTRUMENTATION TECH Romina Unavailable Jeremie MICROBIOLOGY DIRECTOR.INSTRUMENTATION TECH Romina Digna Unavailable Jeremie MICROBIOLOGY DIRECTOR.INSTRUMENTATION TECH, Romina Unavailable Jeremie MICROBIOLOGY DIRECTOR.INSTRUMENTATION TECH, Romina Unavailable Dr. Jose Hyde MD Primary Care Provider [phone] Randell GANDHI, Dr. Barton Attending Provider Dr. Mick Mejias MD Emergency Provider Provider, Ed Physician Emergency Provider Gay Samuels MD, Dr. Mcdaniel Emergency Provider [phone] Dr. Mango Cornejo DO Admit Provider Unavail [...] Admitting Unavailable Monico Patterson Attending Unavailable Pyle MICROBIOLOGY DIRECTOR.SEISMOMETER OPERATOR, Vlad Unavailable Pyle MICROBIOLOGY DIRECTOR.SEISMOMETER OPERATOR, Vlad Unavailable TALAMPAS, JOSE D Primary Care [...] sources) codeine; Translations: [CODEINE] Drug Allergy 8 [facility] Repository Comment on above: TONGUE SWELLING (20 sources) morphine; Translations: [MORPHINE] Drug Allergy 8 Other: See Comments [facility] Repository (20 sources) Penicillins; Translations: [PENICILLINS] Propensity to adverse reactions to drug (disorder) 8 Anaphylaxis [facility] Repository (20 sources) propoxyphene; Translations: [PROPOXYPHENE HCL] Drug Allergy 8 [facility] Repository Comment on above: WELTS (20 sources) simvastatin; Translations: [SIMVASTATIN] Drug Allergy 2 Other: See Comments [facility] Repository (2 sources) Lisinopril Drug Allergy 3 cough [facility] Work Phone: [phone] (2 sources) Penicillin Drug Allergy 2 [facility] Work Phone: [phone] (2 sources) Propoxyphene Drug Allergy 2 [facility] Work Phone: [phone] Medications Current Medications Medication Drug Class(es) [...] tablet by mouth at bedtime. ATORVASTATIN CALCIUM [id number] Sergio White MD Comment on above: Take [...] by mouth four times daily DICYCLOMINE HCL [id number] Sergio White MD Start: 04-11-2012 End: 04-12-2012 take 1 tablet by mouth twice daily DICYCLOMINE HCL 10 MG CAPS One tablet by mouth twice daily DICYCLOMINE HCL [id number] Sergio White MD Comment on above: Take 1 capsule by mo [facility] twice daily. as directed- ferrous sulfate 325 [...] tablet by mouth twice daily FERROUS SULFATE [id number] Sergio White MD Comment on above: Take [...] SL tablet Indications: Coronary artery disease involving [place] coronary artery of [place] heart without angina pectoris Dissolve 1 tablet under the tongue as needed. DISSOLVE ON TONGUE FOR CHEST PAIN. IF NO PAIN RELIEF, CALL 911 25 tablet 3 06/29/2022 Active Start: 06-04-2013 Nitroglycerin Active 0.4 MG SL Q5M June 04, 2013 1:00am Start: 04-11-2012 End: 03-29-2013 NITROSTAT 0.4 MG SUBL 1 tabl et under tongue every 5 min up to 3 X NITROGLYCERIN [id number] Sergio White MD Comment on above: Dissolve [...] One tablet by mouth daily PANTOPRAZOLE SODIUM 95397071573 Bridgett Graham RN Start: 04-11-2012 take 1 tablet by kenneth th twice daily PROTONIX 40 MG SOLR One half tablet by mouth twice daily PANTOPRAZOLE SODIUM 90890123653 Sergio White MD Start: 04-11-2012 take 2 tablets by mo [facility] once daily PROTONIX 20 MG TBEC Two tablets by mouth daily. PANTOPRAZOLE SODIUM [id number] John Santiago NP Comment on above: Take [...] One tablet by mouth daily SERTRALINE HCL [id number] Sergio White MD Comment on above: Take [...] ETAMINOPHEN 5-325 MG TABS as directed HYDROCODONE-ACETAMINOPHEN [id number] Penelope Koenig PADandyC aspirin 81 mg chewable [...] Beauty Skin, Nails, and Hair BIOTIN CAPS [id number] Tony Jackson MD bisacodyl 5 mg delayed [...] One tablet by mouth daily BUPROPION HCL 57247331504 Sergio White MD Comment on above: Take 1 tablet by kenneth th once daily. cloNIDine hydrochloride 0.1 mg oral tablet (16 sources) Central alpha-2 Adrenergic Agonist Start: 4 End: 4 take 1 tablet by mouth once daily CLONIDINE HCL 0.1 MG TABS One tablet by mouth daily CLONIDINE HCL 17537461712 Bridgett Graham RN Start: 12-17-2012 End: 03-29-2013 take 1 tablet by mouth once daily CLONIDINE HCL 0.1 MG TABS One tablet by mouth daily CLONIDINE HCL 15048879205 Penelope Koenig PA-C Start: 04-12-2012 End: 10-19-2012 take 0.5 tablet by mouth twice daily CLONIDINE HCL 0.1 MG TABS 1/2 tablet by mouth twice daily CLONIDINE HCL 53068530518 Penelope Koenig PA-C Start: 04-11-2012 take 1 tablet by kenneth th twice daily CLONIDINE HCL 0.1 MG TABS One tablet by mouth twice daily CLONIDINE HCL [id number] Bridgett Graham RN clopidogrel 75 mg oral tablet (20 sources) P2Y12 Platelet Inhibitor Start: 06-26-2023 End: 11-05-2024 take 1 tablet by mouth once daily clopidogrel (PLAVIX) 75 mg tablet Indications: Coronary artery disease involving [place] coronary artery of [place] heart without angina pectoris Take 1 tablet by mouth once daily. 30 tablet 11 05/13/2024 11/05/2024 Discontinued Start: 04-11-2012 End: 06-29-2022 take 1 tablet by mouth once daily clopidogrel (PLAVIX) 75 mg tablet Indications: Coronary artery disease involving [place] coronary artery of [place] heart without angina pectoris Take 1 tablet by mouth once daily. 90 tablet 3 06/29/2022 Active Comment on above: Take 1 tablet by kenneth th once daily. ergocalciferol 1.25 mg oral capsule (10 sources) Provitamin D2 Compound Start: 08-08-2013 End: 05-24-2018 Ergocalciferol (Vitamin D2) 50,000 UNIT capsule Discontinued 34876 U PO MO August 08, 2013 1:00am May 24, 2018 3:04pm Start: 04-12-2012 take 1 tablet by kenneth th every month VITAMIN D (ERGOCALCIFEROL) 98401 UNIT CAPS One tablet by mouth month ERGOCALCIFEROL [id number] Penelope Koenig PA-C Start: 04-11-2012 End: 04-12-2012 take 1 tablet by mouth every week VITAMIN D (ERGOCALCIFEROL) 38371 UNIT CAPS One tablet by mouth weekly ERGOCALCIFEROL 69561013702 Sergio White MD gabapentin 300 mg oral [...] One half tablet by mouth daily HYDROCHLOROTHIAZIDE 16860792258 Penelope Koenig PA-C hydrocortisone 25 mg/ml topical lotion (4 sources) Corticosteroid Start : 04-11 End: 06-30 HYDROCORTISONE 2.5 % LOTN Apply as directed HYDROCORTISONE 52155547545 Bridgett Graham RN hydrOXYzine hydrochloride 25 mg [...] IBUPROFEN 800 MG TABS as needed IBUPROFEN [id number] Sergio White MD L.acid/L.casei/B.bif/B.l on/FOS (PROBIOTIC BLEND [...] One tablet by mouth twice daily LISINOPRIL 89007430613 Sergio White MD losartan potassium 100 mg oral tablet (4 sources) Angiotensin 2 Receptor Nurys Start: 3 End: 4 take 1 tablet by mouth once daily COZAAR 100 MG TABS One tablet by mouth daily LOSARTAN POTASSIUM 42734114121 Bridgett Graham RN nystatin 100 unt/mg topical [...] mouth at bedtime. OMEGA-3 FATTY ACIDS CPDR 99738976739 Penelope Koenig PA-C Start: 04-12-2012 take 3 tablets by mo ut at bedtime OMEGA 3 CPDR 3 tablets by mouth at bedtime. OMEGA-3 FATTY ACIDS CPDR 58130650643 Sergio White MD Start: 04-11-2012 OMEGA 3 CPDR 1 ,000 mg One capsule three times daily OMEGA-3 FATTY ACIDS CPDR 05243784731 Bridgett Graham RN polyethylene glycol 3350 06657 mg powder for oral solution (5 sources) [...] by mouth daily POTASSIUM CHLORIDE THERON CR 59170575629 Franchesca Woodruff RN Start: 04-11-2012 End: 08-30-2012 take 1 tablet by mouth four times daily KLOR-CON M20 20 MEQ CR-TABS One tablet by mouth four times daily POTASSIUM CHLORIDE THERON CR 71776805715 Bridgett Graham RN pravastatin sodium 40 mg oral tablet (4 sources) HMG-CoA Reductase Inhibitor Start: 08-30-2012 End: 01-01-2014 take 1 tablet by mouth at bedtime PRAVACHOL 40 MG TABS One tablet by mouth at bedtime. PRAVASTATIN SODIUM 56502741731 Bridgett Graham RN spironolactone 25 mg oral tablet (4 sources) Aldosterone Antagonist Start: 08-30-2012 End: 01-17-2014 take 1 tablet by mouth once daily ALDACTONE 25 MG TABS One tablet by mouth daily SPIRONOLACTONE 01638390470 Franchesca oWodruff RN sulfacetamide sodium 100 mg/ml / sulfur 50 mg/ml medicated liquid soap (4 sources) Sulfonamide Antibacterial Start: 04-11-2012 End: 06-30-2014 SULFACETAMIDE-SULFU R IN UREA EMUL apply topically as directed SULFACETAMIDE-SULFU R IN UREA EMUL 39315016616 Penelope Koenig PA-C traMADol hydrochloride 50 mg oral tablet (4 sources) Opioid Agonist Start: 12-29-2014 End: 08-11-2015 take 1 tablet by mouth once daily TRAMADOL HCL 50 MG TABS One tablet by mouth daily TRAMADOL HCL 54896328485 Penelope Koenig PA-C zonisamide 50 mg oral [...] disease (20 sources) Atherosclerotic heart disease of [place] coronary artery without angina pectoris; Translations: [Coronary [...] current use of drug therapy; Translations: [Other coconut cooker (current) drug therapy] 05-13-2024 Episodic Other circulatory [...] (2 sources) Long-term drug therapy; Translations: [Other shelter (current) drug therapy] Onset: 6 08-20-2015 Unclassified [...] Test Name Value Interpretation Reference Range Facility [facility] 12-03-2024 CNOV Office Visit (INTMWS ) -- ROBI OLIVARES ([id number]) 1950 F Date Time Provider Department 12/03/24 1:20 PM VLAD PYLE INTMWS During your visit today, we recorded the following information about you: Pulse Respiration Blood pressure Weight 77/minute 16/minute 179/91 41.1 kg Vlad Pyle APRN.SEISMOMETER OPERATOR 12/03/2024 2:50 PM Signed SUBJECTIVE: Medicare Annual [...] Actinic Damage//Sun-damaged skin Cad (Coronary Artery Disease), [place] Coronary Artery Coronary Stent Carcinoma in Situ, [...] 3 months. She has been followed by [facility] lab aide Dr. Borrego. She presented to [facility] on October through October 24, 2024 [...] interest in a second opinion from a lab aide. Hypertension: - Reports (more content not included)... Normal [facility] CNPNon 12-03-2024 [facility] Telephone (INTMWS) -- ROBI OLIVARES ([id number]) 1950 F Date Time Provider Department 12/03/24 [...] Date Reviewed: 12/03/2024 Reviewed by: Vlad Pyle APRN.SEISMOMETER OPERATOR - Fully Assessed Reason for Visit: Insurance [...] skin [L57.8] 05/05/2010 CAD (coronary artery disease), [place] coronary *10/14/2010 Coronary stent 10/14/2010 Carcinoma in [...] Status:Closed by BENITA JANSEN on 12/03/24 Normal [facility] L3410.9994on 11-12-2024 [facility] Misc. 2 Normal [facility] Comment on above: Order Comment: IN [place] CU OF [id number] Result Comment: TEST RESULTS LIMITS PTHrP (PTH-Related [...] please contact the laboratory. [facility]FOR[facility] ORIGINAL REPORT ON FILE IN LAB CONTAINS ADDITIONAL TEST SITE INFORMATION. Performed By: #### L 501.5200, L509.1000 #### [facility] [address] [place], [address] LIPID PANEL, NONFASTINGon Cholesterol [Mass/Vol] 202 mg/dL High <200 [facility] Comment on above: Order Comment: Speci men Type: BLOOD SPECIMENOrdering Facility: [facility] Address: [address] [place] [address] Result Comment: <200 mg/dL, Desirable 200-239 mg/dL, Borderline high >239 mg/dL, High Performed By: #### L IPNF ####[facility] LABIA [id number] [place] [address] [place] HDL CHOLESTEROL, NF 76 mg/dL Normal >39 [facility] Comment on above: Order Comment: Speci men Type: BLOOD SPECIMENOrdering Facility: [facility] Address: [address] [place] [address] Result Comment: 40-5 9 mg/dL, Acceptable >59 mg/dL, High: Negative risk factor for coronary heart disease <40 mg/dL, Low: Positive risk factor for coronary heart disease Performed By: #### L IPNF ####[facility] LABIA [id number] [place] [id number] [place] LDL CHOLESTEROL CALCULATED, NF 112 mg/dL High <100 [facility] Comment on above: Order Comment: Speci men Type: BLOOD SPECIMENOrdering Facility: [facility] Address: [address] [place] [address] Result Comment: <100 mg/dL, Optimal 100-129 mg/dL, Near optimal/above optimal 130-159 mg/dL, Borderline high 160-189 mg/dL, High >189 mg/dL, Very high Secondary prevention optimal LDL Cholesterol levels are recommended to be <70 mg/dL LDL cholesterol is calculated using the [place]-NIH equation. Performed By: #### L IPNF ####[facility] LABCLIA [id number] [address] LDL/HDL RATIO, NF 1.47 mg/dL Normal <2.54 [facility] Comment on above: Order Comment: Speci men Type: BLOOD SPECIMENOrdering Facility: [facility] Address: [address] [place] [address] Result Comment: Refe magoce: 1. National Cholesterol Education Program ATP III Guideline At-A-Glance Quick Desk Reference: National Heart, Lung, and Blood [place]. National Institutes of Health. 2001: NIH Publication No. 01-3305. 2. An International Atherosclerosis Society position paper: global recommendations for the management of dyslipidemia: executive summary, Atherosclerosis. 2014: 232(2):410-413. Performed By: #### L IPNF ####[facility] LABIA [id number] [address] NON HDL CHOL, NF 126 mg/dL Normal <130 [facility] Comment on above: Order Comment: [facility] Type: BLOOD SPECIMENOrdering Facility: [facility] Address: [address] [place] [address] Result Comment: <130 mg/dL, Optimal 130-159 mg/dL, Near optimal/above optimal 160-189 mg/dL, Borderline high 190-219 mg/dL, High >219 mg/dL, Very high Secondary prevention optimal non HDL Cholesterol levels are recommended to be <100 mg/dL Performed By: #### L IPNF ####[facility] LABIA [id number] [place] [id number] [facility] T CHOL/HDL RATIO NF 2.66 mg/dL Normal <5.10 [facility] Comment on above: Order Comment: Speci men Type: BLOOD SPECIMENOrdering Facility: [facility] Address: [address] [place] [address] Performed By: #### L IPNF ####[facility] LABIA [id number] [place] [address] [place] TRIGLYCERIDES, NF 79 mg/dL Normal <150 [facility] Comment on above: Order Comment: Speci men Type: BLOOD SPECIMENOrdering Facility: [facility] Address: [address] [place] [address] Result Comment: <150 mg/dL, Normal 150-199 mg/dL, Borderline high 200-499 mg/dL, High >499 mg/dL, Very high Performed By: #### L IPNF ####[facility] LABIA [id number] [place] [address] [place] VLDL CHOLESTEROL, NF 13 mg/dL Normal <30 [facility] Comment on above: Order Comment: Speci men Type: BLOOD SPECIMENOrdering Facility: [facility] Address: [address] [place] [address] Performed By: #### L IPNF ####[facility] LABIA [id number] [address] [place] CNOVon 11-05-2024 CNOV Office Visit (INTMWS ) -- ROBI OLIVARES ([id number]) 1950 F Date Time Provider Department 11/05/24 5:00 PM JOSE HYDE INTMWS During your visit today, we recorded the following information about you: Pulse Respiration Blood pressure Weight 80/minute 18/minute 134/74 42.5 kg Jose Hyde MD 11/25/2024 12:35 AM Signed This note was created using USEREADYter. Subjective Robi Olivares is a 73 year [...] but is not currently active in her caodaism. She has a history of anxiety and [...] Checked in 2017 CAD (coronary artery disease) [place] 1996 Diverticulosis of colon (without mention of [...] Wt 4 (more content not included)... Normal [facility] ROBI OLIVARES ([id number]) 1950 F Date Time Provider Department 11/04/24 JOSE HYDE INTAntwonWS During your visit today, we recorded the following information about you: Analy Colunga 11/04/2024 2:37 PM Signed Spoke with patient to reschedule missed Hospital Follow up. Patient started crying and stated she is losing her mind. Patient stated has Stage IV cancer (being treated at [facility]) and he is being mean. Patient was unaware of any support services through [facility] and did not want knowing she was needing help. Did transfer patient to a nurse and did reach out to the social security assessor for recommendations. Additionally, in the process of the call, patient stated she does not want to see Dr. Rick again. Eelna Piña LPN 11/04/2024 2:53 PM Signed Spoke [...] today. Advised triage nurse is available at [facility] until 8 pm. SANTA Arreaga Rosa, APRN.INSTRUMENTATION TECH 11/06/2024 8:08 AM Signed Seen yesterday with [...] Date Reviewed: 10/15/2024 Reviewed by: Kee Trimble APRN.INSTRUMENTATION TECH - Fully Assessed Reason for Visit: Patient [...] skin [L57.8] 05/05/2010 CAD (coronary artery disease), [place] coronary *10/14/2010 Coronary stent 10/14/2010 Carcinoma in [...] by LAITH (more content not included)... Normal [facility] ANCAon 10-28-2024 Atypical pANCA <1:20 Normal Neg:<1:20 [facility] Comment on above: Order Comment: IN [place] CU OF 1699 Result Comment: The atypical pANCA pattern has been observed in a significant percentage of patients with ulcerative colitis, primary sclerosing cholangitis and autoimmune hepatitis. Performed By: #### L 501.5200, L509.1000 #### [facility] [address] [place], [address] Cytoplasmic Ab <1:20 Normal Neg:<1:20 [facility] Comment on above: Order Comment: IN PA CU OF 1699 Performed By: #### L 501.5200, L509.1000 #### [facility] [address] [place], [place], [address] Perinuclear Ab. <1:20 Normal Neg:<1:20 [facility] Comment on above: Order Comment: IN PA CU OF 1699 Result Comment: The presence of positive fluorescence exhibiting P-ANCA or C-ANCA patterns alone is not specific for the diagnosis of Tierra's Granulomatosis (WG) or microscopic polyangiitis. Decisions about treatment should not be based solely on ANCA IFA results. The International ANCA Group Consensus recommends follow up testing of positive sera with both NH- 3 and MPO-ANCA enzyme immunoassays. As many as 5% serum samples are positive only by EIA. Ref. AM J Clin Pathol 1999;111:507-513. Performed By: #### L 501.5200, L509.1000 #### [facility] [address] [place], [place], [address] Angiotensin Convert Enzymeon 10-28-2024 ANGIOT-CONV.ENZ 55 U/L Normal 14-82 [facility] Comment on above: Order Comment: IN PA CU OF 1699 Result Comment: Perf ormed at: [facility] [id number] [place] Insulator Helper: Orlin Wagner PhD, Phone: [phone] Performed at: [facility] [address] [id number] [place] Insulator Helper: Maru Sue MD, Phone: [phone] Performed By: #### L 501.5200, L509.1000 #### [facility] [address] [place], [place], [address] Carbohydrate AG 19-9on 10-28 CA 19-9 7 U/mL Normal 0-35 [facility] Comment on above: Order Comment: IN PA CU OF 1699 Result Comment: [employer] [facility] Electrochemiluminescence Immunoassay (ECLIA) Values obtained with different assay methods or kits cannot be used interchangeably. Results cannot be interpreted as absolute evidence of the presence or absence of malignant disease. Performed By: #### L 501.5200, L509.1000 #### [facility] [address] [place], [address] Carcinoembryonic Antigenon 0 10-28-2024 CEA 11.1 ng/mL High 0.0-4.7 [facility] Comment on above: Order Comment: IN PA CU OF 1700 Result Comment: Nons mokers <3.9 Smokers <5.6 [facility] Electrochemiluminescence Immunoassay (ECLIA) Values obtained with different assay methods or kits cannot be used interchangeably. Results cannot be interpreted as absolute evidence of the presence or absence of malignant disease. Performed By: #### L 501.5200, L509.1000 #### [facility] [address] [place], [address] Celiac AB,Comprehensiveon ANTIGLIADIN IGA 3 units Normal 0-19 [facility] Comment on above: Order Comment: IN PA CU OF 1700 Result Comment: Nega tive 0 - 19 Weak Positive 20 - 30 Moderate to Strong Positive >30 Performed By: #### L 501.5200, L509.1000 #### [facility] [address] [place], [address] ANTIGLIADIN IGG 2 units Normal 0-19 [facility] Comment on above: Order Comment: IN PA CU OF 1700 Result Comment: Nega tive 0 - 19 Weak Positive 20 - 30 Moderate to Strong Positive >30 Performed By: #### L 501.5200, L509.1000 #### [facility] [address] [place], [address] ENDOMYSIAL IGA Negative Normal Negative [facility] Comment on above: Order Comment: IN PA CU OF 1700 Performed By: #### L 501.5200, L509.1000 #### [facility] [address] [place], [address] tTG IGA <2 Normal 0-3 [facility] Comment on above: Order Comment: IN PA CU OF 1700 Result Comment: Nega tive 0 - 3 Weak Positive 4 - 10 Positive >10 Tissue Transglutaminase (tTG) has been identified as the endomysial antigen. Studies have demonstr- ated that endomysial IgA antibodies have over 99% specificity for gluten sensitive enteropathy. Performed By: #### L 501.5200, L509.1000 #### [facility] [address] [place], [address] tTG IGG <2 Normal 0-5 [facility] Comment on above: Order Comment: IN [place] CU OF 170 Result Comment: Nega tive 0 - 5 Weak Positive 6 - 9 Positive >9 Performed By: #### L 501.5200, L509.1000 #### [facility] [address] [place], [address] SUHAIL + Protein Elect, Serumon 10-28-2024 Albumin [Mass/Vol] 3.3 g/dL Normal 2.9-4.4 [facility] Comment on above: Order Comment: IN PA CU OF 1699 Performed By: #### L 501.5200, L509.1000 #### [facility] [address] [place], [address] Albumin/Globulin [Mass ratio] 1.4 {ratio} Normal 0.7-1.7 [facility] Comment on above: Order Comment: IN PA CU OF 1700 Performed By: #### L 501.5200, L509.1000 #### [facility] [address] [place], [address] ZLBDY-8-AXOR 0.2 g/dL Normal 0.0-0.4 [facility] Comment on above: Order Comment: IN [place] CU OF 1700 Performed By: #### L 501.5200, L509.1000 #### [facility] [address] [place], [address] DWIFM-1-ROGI 0.7 g/dL Normal 0.4-1.0 [facility] Comment on above: Order Comment: IN PA CU OF 1700 Performed By: #### L 501.5200, L509.1000 #### [facility] [address] [place], [address] BETA GLOBULIN 0.7 g/dL Normal 0.7-1.3 [facility] Comment on above: Order Comment: IN PA CU OF 1700 Performed By: #### L 501.5200, L509.1000 #### [facility] [address] [place], [address] GAMMA GLOBULIN 0.9 g/dL Normal 0.4-1.8 [facility] Comment on above: Order Comment: IN PA CU OF 1700 Performed By: #### L 501.5200, L509.1000 #### [facility] [address] [place], [address] Globulin (S) [Mass/Vol] 2.5 g/dL Normal 2.2-3.9 [facility] Comment on above: Order Comment: IN PA CU OF 1700 Performed By: #### L 501.5200, L509.1000 #### [facility] [address] [place], [address] SUHAIL RESULT,S Comment Abnormal . [facility] Comment on above: Order Comment: IN [...] can be removed by ordering test number [id number], Daratumumab-Specific, Serum or [id number], Isatuximab-Specific, Serum and submitting a new sample for testing or by calling the lab to add this test to the current sample. Performed By: #### L 501.5200, L509.1000 #### [facility] [address] [place], [address] IMMUNOGLOB A QN 135 mg/dL Normal 64-422 [facility] Comment on above: Order Comment: IN PA CU OF 1700 Performed By: #### L 501.5200, L509.1000 #### [facility] [address] [place], [address] IMMUNOGLOB M QN 161 mg/dL Normal 26-217 [facility] Comment on above: Order Comment: IN PA CU OF 1700 Performed By: #### L 501.5200, L509.1000 #### [facility] [address] [place], [address] M-Justice Comment: Normal Not Observed [facility] Comment on above: Order Comment: IN PA CU OF 1700 Result Comment: Due to the small quantity of monoclonal protein, unable to quantitate the M-spike. Performed By: #### L 501.5200, L509.1000 #### [facility] [address] [place], [address] NOTE: Comment Normal . [facility] Comment on above: Order Comment: IN PA CU OF 1700 Result Comment: Prot ein electrophoresis scan will follow via computer, mail, or pricing specialist delivery. Performed By: #### L 501.5200, L509.1000 #### [facility] [address] [place], [address] Protein [Mass/Vol] 5.8 g/dL Low 6.0-8.5 [facility] Comment on above: Order Comment: IN PA CU OF 1700 Performed By: #### L 501.5200, L509.1000 #### [facility] [address] [place], [address] IgG Subclasseson 10-28-2024 IgG, SUBCLASS 1 427 mg/dL Normal 248-810 [facility] Comment on above: Order Comment: IN PA CU OF 1700 Performed By: #### L 501.5200, L509.1000 #### [facility] [address] [place], [address] IgG, SUBCLASS 2 217 mg/dL Normal 130-555 [facility] Comment on above: Order Comment: IN PA CU OF 1700 Performed By: #### L 501.5200, L509.1000 #### [facility] [address] [place], [address] IgG, SUBCLASS 3 27 mg/dL Normal 15-102 [facility] Comment on above: Order Comment: IN PA CU OF 1700 Performed By: #### L 501.5200, L509.1000 #### [facility] [address] [place], [address] IgG, SUBCLASS 4 52 mg/dL Normal 2-96 [facility] Comment on above: Order Comment: IN PA CU OF 1700 Performed By: #### L 501.5200, L509.1000 #### [facility] [address] [place], [address] IGG,QUANT 955 mg/dL Normal 586-1602 [facility] Comment on above: Order Comment: IN PA CU OF 1700 Performed By: #### L 501.5200, L509.1000 #### [facility] [address] [place], [address] Immunoglobulins G/A/M/Joaquin IMMUNOGLOB E QN 333 IU/mL Normal 6-495 [facility] Comment on above: Order Comment: IN PA CU OF 1700 Performed By: #### L 501.5200, L509.1000 #### [facility] [address] [place], [address] L2100.0000on 05-12-2025 ACCA 32 units Normal 0-90 [facility] Comment on above: Order Comment: IN PA CU OF 1700 Result Comment: Nega tive: <80 Equivocal: 80-90 Positive: >90 Performed By: #### L 3100.5440, L3200.1100, L3100.3425, L3300.1200, L3100.6900, L3410.2350, L3100.2300, L2100.0000, L3200.0500, L3100.5020, L3410.9994 #### [facility] [address] [place], [place], [id number] ALCA 2 units Normal 0-60 [facility] Comment on above: Order Comment: IN PA CU OF 170 Result Comment: Nega tive:<55 Equivocal: 55-60 Positive: >60 Performed By: #### L 3100.5440, L3200.1100, L3100.3425, L3300.1200, L3100.6900, L3410.2350, L3100.2300, L2100.0000, L3200.0500, L3100.5020, L3410.9994 #### [facility] [address] [place], [address] AMCA 7 units Normal 0-100 [facility] Comment on above: Order Comment: IN PA CU OF 1699 Result Comment: Nega tive: <90 Equivocal: 90-100 Positive: >100 This test was developed and its performance characteristics determined by [employer]. It has not been cleared or approved by the Food and Drug Administration. The FDA has determined that such clearance or approval is not necessary. Performed By: #### L 3100.5440, L3200.1100, L3100.3425, L3300.1200, L3100.6900, L3410.2350, L3100.2300, L2100.0000, L3200.0500, L3100.5020, L3410.9994 #### [facility] [address] [place], [place], [id number] Atypical pANCA Negative Normal Negative [facility] Comment on above: Order Comment: IN PA CU OF 1699 Performed By: #### L 3100.5440, L3200.1100, L3100.3425, L3300.1200, L3100.6900, L3410.2350, L3100.2300, L2100.0000, L3200.0500, L3100.5020, L3410.9994 #### [facility] [address] [place], [place], [id number] COMMENT Comment Normal . [facility] Comment on above: Order Comment: IN [place] CU OF 1699 Result Comment: Shantal shahbaz is not suggestive of Inflammatory Bowel Disease Performed By: #### L 3100.5440, L3200.1100, L3100.3425, L3300.1200, L3100.6900, L3410.2350, L3100.2300, L2100.0000, L3200.0500, L3100.5020, L3410.9994 #### [facility] [address] [place], [place], [id number] Nanci 29 units Normal 0-50 [facility] Comment on above: Order Comment: IN [place] CU OF 1699 Result Comment: Nega tive: <45 Equivocal: 45-50 Positive: >50 Performed By: #### L 3100.5440, L3200.1100, L3100.3425, L3300.1200, L3100.6900, L3410.2350, L3100.2300, L2100.0000, L3200.0500, L3100.5020, L3410.9994 #### [facility] [address] [place], [place], [id number] Liver Profileon 10-26-2024 ALB Normal 3.4-4.8 [facility] Comment on above: Result Comment: Canc elled via OM: Order cancelled - Patient discharged Performed By: #### L 500.3400 #### [facility] [address] [place], [address] ALK PHOS Normal 35-104 [facility] Comment on above: Result Comment: Canc elled via OM: Order cancelled - Patient discharged Performed By: #### L 500.3400 #### [facility] [address] [place], [address] ALT Normal <=34 [facility] Comment on above: Result Comment: Canc elled via OM: Order cancelled - Patient discharged Performed By: #### L 500.3400 #### [facility] [address] [place], [address] AST Normal <=31 [facility] Comment on above: Result Comment: Canc elled via OM: Order cancelled - Patient discharged Performed By: #### L 500.3400 #### [facility] [address] [place], [address] D BILI Normal 0.00-0.30 [facility] Comment on above: Result Comment: Canc elled via OM: Order cancelled - Patient discharged Performed By: #### L 500.3400 #### [facility] [address] [place], [address] T BILI Normal 0.00-1.30 [facility] Comment on above: Result Comment: Canc elled via OM: Order cancelled - Patient discharged Performed By: #### L 500.3400 #### [facility] [address] [place], [address] T PROT Normal 5.9-8.4 [facility] Comment on above: Result Comment: Canc elled via OM: Order cancelled - Patient discharged Performed By: #### L 500.3400 #### [facility] [address] [place], [address] CBC W/Diff, Automatedon 05-0 -2024 Absolute Neut Normal 2.0-7.7 [facility] Comment on above: Result Comment: Canc elled via OM: Order cancelled - Patient discharged Performed By: #### L 500.3400, L100.0100 #### [facility] [address] [place], [address] HCT Normal 37-47 [facility] Comment on above: Result Comment: Canc elled via OM: Order cancelled - Patient discharged Performed By: #### L 500.3400, L100.0100 #### [facility] [address] [place], [address] HGB Normal 12.0-15.0 [facility] Comment on above: Result Comment: Canc elled via OM: Order cancelled - Patient discharged Performed By: #### L 500.3400, L100.0100 #### [facility] [address] [place], [address] MCH Normal 27.0-32.0 [facility] Comment on above: Result Comment: Canc elled via OM: Order cancelled - Patient discharged Performed By: #### L 500.3400, L100.0100 #### [facility] [address] [place], [address] MCHC Normal 32-36 [facility] Comment on above: Result Comment: Canc elled via OM: Order cancelled - Patient discharged Performed By: #### L 500.3400, L100.0100 #### [facility] [address] [place], [address] MCV Normal 81-99 [facility] Comment on above: Result Comment: Canc elled via OM: Order cancelled - Patient discharged Performed By: #### L 500.3400, L100.0100 #### [facility] [address] [place], [address] NEUT% Normal 47-70 [facility] Comment on above: Result Comment: Canc elled via OM: Order cancelled - Patient discharged Performed By: #### L 500.3400, L100.0100 #### [facility] [address] [place], [address] PLT Normal 150-450 [facility] Comment on above: Result Comment: Canc elled via OM: Order cancelled - Patient discharged Performed By: #### L 500.3400, L100.0100 #### [facility] [address] [place], [address] RBC Normal 4.2-5.4 [facility] Comment on above: Result Comment: Canc elled via OM: Order cancelled - Patient discharged Performed By: #### L 500.3400, L100.0100 #### [facility] [address] [place], [address] RDW CV Normal 11.6-14.6 [facility] Comment on above: Result Comment: Canc elled via OM: Order cancelled - Patient discharged Performed By: #### L 500.3400, L100.0100 #### [facility] [address] [place], [address] RDW SD Normal 35.1-43.9 [facility] Comment on above: Result Comment: Canc elled via OM: Order cancelled - Patient discharged Performed By: #### L 500.3400, L100.0100 #### [facility] [address] [place], [address] WBC Normal 4.4-11.0 [facility] Comment on above: Result Comment: Canc elled via OM: Order cancelled - Patient discharged Performed By: #### L 500.3400, L100.0100 #### [facility] [address] [place], [address] Liver Profileon 10-25-2024 ALB Normal 3.4-4.8 [facility] Comment on above: Result Comment: Canc elled via OM: Order cancelled - Patient discharged Performed By: #### L 500.3400, L100.0100 #### [facility] [address] [place], [address] ALK PHOS Normal 35-104 [facility] Comment on above: Result Comment: Canc elled via OM: Order cancelled - Patient discharged Performed By: #### L 500.3400, L100.0100 #### [facility] [address] [place], [address] ALT Normal <=34 [facility] Comment on above: Result Comment: Canc elled via OM: Order cancelled - Patient discharged Performed By: #### L 500.3400, L100.0100 #### [facility] [address] [place], [address] AST Normal <=31 [facility] Comment on above: Result Comment: Canc elled via OM: Order cancelled - Patient discharged Performed By: #### L 500.3400, L100.0100 #### [facility] [address] [place], [address] D BILI Normal 0.00-0.30 [facility] Comment on above: Result Comment: Canc elled via OM: Order cancelled - Patient discharged Performed By: #### L 500.3400, L100.0100 #### [facility] [address] [place], [address] T BILI Normal 0.00-1.30 [facility] Comment on above: Result Comment: Canc elled via OM: Order cancelled - Patient discharged Performed By: #### L 500.3400, L100.0100 #### [facility] [address] [place], [address] T PROT Normal 5.9-8.4 [facility] Comment on above: Result Comment: Canc elled via OM: Order cancelled - Patient discharged Performed By: #### L 500.3400, L100.0100 #### [facility] [address] [place], [address] Vitamin D 1,25-Dihydroxyon 0 5-09-2025 VIT D 1,25 DIHY 52.1 pg/mL Normal 24.8-81.5 [facility] Comment on above: Result Comment: Perf ormed at: [facility] [id number] [employer]: Maru Sue MD, Phone: [phone] Performed By: #### L 501.2300, L506.1001 #### [facility] [address] [place], [place], [address] TIMOTHY Comprehensive Panelon ANTI-CENT B AB <0.2 Normal 0.0-0.9 [facility] Comment on above: Order Comment: IN [place] CU OF 1699 Performed By: #### L 3100.5440, L3200.1100, L3100.3425, L3300.1200, L3100.6900, L3410.2350, L3100.2300, L2100.0000, L3200.0500, L3100.5020, L3410.9994 #### [facility] [address] [place], [place], [address] ANTI-DNA (DS)AB <1 Normal 0-9 [facility] Comment on above: Order Comment: IN [place] CU OF 1699 Result Comment: Nega tive <5 Equivocal 5 - 9 Positive >9 Performed By: #### L 3100.5440, L3200.1100, L3100.3425, L3300.1200, L3100.6900, L3410.2350, L3100.2300, L2100.0000, L3200.0500, L3100.5020, L3410.9994 #### [facility] [address] [place], [place], [id number] Absolute lymphocyte countOrd ered By: Monico Patterson on 10-24-2024 Lymphocytes Auto (Unsp spec) [#/Vol] 1.98 10*3/uL 0.83-4.51 [facility] Absolute neutrophil countOrd ered By: Monico Patterson on 10-24-2024 Neutrophils (Bld) [#/Vol] 5.1 10*3/uL 2.0-7.7 [facility] Anion gap in Serum or Plasma Ordered By: Monico Patterson on 10-24-2024 Anion gap [Moles/Vol] 13 mmol/L 5-15 [facility] Automated lymphocyte count a s percentage of total leukocytesOrdered By: Monico Patterson on 10-24-2024 Lymphocytes/100 WBC Auto (Unsp spec) 24.0 % [facility] BUN/creatinine ratioOrdered By: Monico Patterson on 10-24-2024 Urea nitrogen/Creatinine [Mass ratio] 8.6 mg/mg Low 04-07 [facility] Basic Metabolic Profile (BMP )on 10-24-2024 BUN/CRE 8.6 RATIO Low 04-07 [facility] Comment on above: Performed By: #### L 500.3400, L100.0100 #### [facility] [address] [place], [address] Calcium [Mass/Vol] 9.0 mg/dL Normal 7.6-11.0 [facility] Comment on above: Performed By: #### L 500.3400, L100.0100 #### [facility] [address] [place], [address] Chloride [Moles/Vol] 100 mmol/L Normal 98-108 [facility] Comment on above: Performed By: #### L 500.3400, L100.0100 #### [facility] [address] [place], [address] CO2 [Moles/Vol] 24.3 mmol/L Normal 21.0-32.0 [facility] Comment on above: Performed By: #### L 500.3400, L100.0100 #### [facility] [address] [place], [address] Creatinine [Mass/Vol] 0.61 mg/dL Low 0.70-1.20 [facility] Comment on above: Performed By: #### L 500.3400, L100.0100 #### [facility] [address] [place], [address] ECRCL 36.62 ml/min Low 50-250 [facility] Comment on above: Performed By: #### L 500.3400, L100.0100 #### [facility] [address] [place], [address] GAP 13 Normal 5-15 [facility] Comment on above: Performed By: #### L 500.3400, L100.0100 #### [facility] [address] [place], [address] GFR/1.73 sq M.predicted among non-blacks MDRD (S/P/Bld) [Vol rate/Area] 94 mL/min/{1.73_m2} Normal >60 [facility] Comment on above: Result Comment: mL/m in/1.73m2 CKD-EPI Creatinine Equation (2020) Performed By: #### L 500.3400, L100.0100 #### [facility] [address] [place], [address] Glucose [Mass/Vol] 108 mg/dL High 70-99 [facility] Comment on above: Performed By: #### L 500.3400, L100.0100 #### [facility] [address] [place], [address] Potassium [Moles/Vol] 3.8 mmol/L Normal 3.3-5.1 [facility] Comment on above: Performed By: #### L 500.3400, L100.0100 #### [facility] [address] [place], [address] Sodium [Moles/Vol] 137 mmol/L Normal 133-145 [facility] Comment on above: Performed By: #### L 500.3400, L100.0100 #### [facility] [address] [place], [address] Urea nitrogen [Mass/Vol] 5 mg/dL Normal 4-19 [facility] Comment on above: Performed By: #### L 500.3400, L100.0100 #### [facility] [address] [place], [address] Basophil percentageOrdered B y: Monico Patterson on 10-24-2024 Basophils/100 WBC (Bld) 0.2 % 0-1 [facility] Bilirubin directOrdered By: Monico Patterson on 10-24-2024 Bilirubin.direct [Mass/Vol] 0.18 mg/dL 0.00-0.30 [facility] Bilirubin, totalOrdered By: Monico Patterson on 10-24-2024 Bilirubin [Mass/Vol] 0.37 mg/dL 0.00-1.30 [facility] CBC W/Diff, Automatedon Absolute Lymph 1.98 X10 3/uL Normal 0.83-4.51 [facility] Comment on above: Performed By: #### L 500.3400, L100.0100 #### [facility] [address] [place], [address] Absolute Neut 5.1 X10 3/uL Normal 2.0-7.7 [facility] Comment on above: Performed By: #### L 500.3400, L100.0100 #### [facility] [address] [place], [address] Basophils/100 WBC (Bld) 0.2 % Normal 0-1 [facility] Comment on above: Performed By: #### L 500.3400, L100.0100 #### [facility] [address] [place], [address] Eosinophils/100 WBC (Bld) 1.1 % Normal 0-5 [facility] Comment on above: Performed By: #### L 500.3400, L100.0100 #### [facility] [address] [place], [address] Erythrocyte distribution width (RBC) [Ratio] 14.7 % High 11.6-14.6 [facility] Comment on above: Performed By: #### L 500.3400, L100.0100 #### [facility] [address] [place], [address] Hematocrit (Bld) [Volume fraction] 37.7 % Normal 37-47 [facility] Comment on above: Performed By: #### L 500.3400, L100.0100 #### [facility] [address] [place], [address] Hemoglobin (Bld) [Mass/Vol] 13.4 g/dL Normal 12.0-15.0 [facility] Comment on above: Performed By: #### L 500.3400, L100.0100 #### [facility] [address] [place], [address] IG% 0.200 Normal 0.0-0.9 [facility] Comment on above: Result Comment: IG% - Immature Granulocytes (promyelocytes, myelocytes and metamyelocytes) > 1% indicates that a LEFT SHIFT is Present. Performed By: #### L 500.3400, L100.0100 #### [facility] [address] [place], [address] Lymphocytes/100 WBC (Bld) 24.0 % Normal 19-41 [facility] Comment on above: Performed By: #### L 500.3400, L100.0100 #### [facility] [address] [place], [address] MCH (RBC) [Entitic mass] 32.8 pg High 27.0-32.0 [facility] Comment on above: Performed By: #### L 500.3400, L100.0100 #### [facility] [address] [place], [address] MCHC (RBC) [Mass/Vol] 35.5 g/dL Normal 32-36 [facility] Comment on above: Performed By: #### L 500.3400, L100.0100 #### [facility] [address] [place], [address] MCV (RBC) [Entitic vol] 92.2 fL Normal 81-99 [facility] Comment on above: Performed By: #### L 500.3400, L100.0100 #### [facility] [address] [place], [address] Monocytes/100 WBC (Bld) 13.0 % High 0-10 [facility] Comment on above: Performed By: #### L 500.3400, L100.0100 #### [facility] [address] [place], [address] Neutrophils/100 WBC (Bld) 61.5 % Normal 47-70 [facility] Comment on above: Performed By: #### L 500.3400, L100.0100 #### [facility] [address] [place], [address] Nucleated RBC (Bld) [#/Vol] 0 10*3/uL Normal 0-5 [facility] Comment on above: Performed By: #### L 500.3400, L100.0100 #### [facility] [address] [place], [address] Platelet mean volume (Bld) [Entitic vol] 10.8 fL Normal 6.2-12.0 [facility] Comment on above: Performed By: #### L 500.3400, L100.0100 #### [facility] [address] [place], [address] Platelets (Bld) [#/Vol] 146 10*3/uL Low 150-450 [facility] Comment on above: Performed By: #### L 500.3400, L100.0100 #### [facility] [address] [place], [address] RBC (Bld) [#/Vol] 4.09 10*6/uL Low 4.2-5.4 [facility] Comment on above: Performed By: #### L 500.3400, L100.0100 #### [facility] [address] [place], [address] RDW SD 50.3 fl High 35.1-43.9 [facility] Comment on above: Performed By: #### L 500.3400, L100.0100 #### [facility] [address] [place], [address] WBC (Bld) [#/Vol] 8.3 10*3/uL Normal 4.4-11.0 [facility] Comment on above: Performed By: #### L 500.3400, L100.0100 #### [facility] [address] [place], [address] Carbon dioxide, total [Moles /volume] in Central venous bloodOrdered By: Monico Patterson on 10-24-2024 CO2 [Moles/Vol] 24.3 mmol/L 21.0-32.0 [facility] Chloride assayOrdered By: Uche Patterson on 10-24-2024 Chloride [Moles/Vol] 100 mmol/L 98-108 [facility] Discharge Instructionon Discharge Instruction [facility] Medical Records Department [address] [place] [address] Instructions for Home/Discharge Instructions 10/24/24 1100 MR#: [id number] Acct: [id number] Name: ROBI OLIVARES Rep #: [id number] : 1950 73 From: Monico Patterson MD [...] 1405 Monico Patterson MD CC: Dr. Mango Cornejo DO; Dr. Jose Hyde MD Signed Normal [facility] Eosinophil percentageOrdered By: Monico Patterson on 10-24-2024 Eosinophils/100 WBC (Bld) 1.1 % 0-5 [facility] Erythrocyte distribution wid th ratioOrdered By: Monico Patterson on 10-24-2024 Erythrocyte distribution width (RBC) [Ratio] 14.7 % High 11.6-14.6 [facility] Erythrocyte distribution wid th standard deviationOrdered By: Monico Patterson on 10-24-2024 Erythrocyte distribution width (RBC) [Ratio] 50.3 fl High 35.1-43.9 [facility] Glomerular filtration rate ( GFR) estimation/1.73 sq m using serum, plasma, or whole bOrdered By: Monico Patterson on 10-24-2024 GFR/1.73 sq M.predicted among non-blacks MDRD (S/P/Bld) [Vol rate/Area] 94 mL/min/{1.73_m2} >60 [facility] Comment on above: mL/min/1.73m2 CKD-EP I Creatinine Equation (2020) Hematocrit Auto (Bld) [Volum e fraction]Ordered By: Monico Patterson on 10-24-2024 Hematocrit (Bld) [Volume fraction] 37.7 % 37-47 [facility] Hemoglobin measurementOrdere d By: Monico Patterson on 10-24-2024 Hemoglobin (Bld) [Mass/Vol] 13.4 g/dL 12.0-15.0 [facility] Immature granulocytes/100 WB C Auto (Bld)Ordered By: Monico Patterson on 10-24-2024 Immature granulocytes/100 WBC (Bld) 0.200 % 0.0-0.9 [facility] Comment on above: IG% - Immature Granu locytes (promyelocytes, myelocytes and metamyelocytes) > 1% indicates that a LEFT SHIFT is Present. L501.5101on 10-24-2024 GGTP 25 IU/L Normal 0-60 [facility] Comment on above: Result Comment: Perf ormed at: - [facility] [address] [id number] [employer] Insulator Helper: Orlin Wagner PhD, Phone: [phone] Performed By: #### L 500.3400, L100.0100 #### [facility] [address] [place], [address] Laboratory - Chemistry and C hemistry - challengeOrdered By: Monico Patterson on 10-24-2024 AST [Catalytic activity/Vol] 20 U/L <32 [facility] Liver Profileon 10-24-2024 Albumin [Mass/Vol] 3.3 g/dL Low 3.4-4.8 [facility] Comment on above: Performed By: #### L 500.3400, L100.0100 #### [facility] [address] [place], [address] ALK PHOS 61 U/L Normal 35-104 [facility] Comment on above: Performed By: #### L 500.3400, L100.0100 #### [facility] [address] [place], [address] ALT [Catalytic activity/Vol] 23 U/L Normal <=34 [facility] Comment on above: Performed By: #### L 500.3400, L100.0100 #### [facility] [address] [place], [address] AST [Catalytic activity/Vol] 20 U/L Normal <=31 [facility] Comment on above: Performed By: #### L 500.3400, L100.0100 #### [facility] [address] [place], [address] Bilirubin [Mass/Vol] 0.37 mg/dL Normal 0.00-1.30 [facility] Comment on above: Performed By: #### L 500.3400, L100.0100 #### [facility] [address] [place], [address] Bilirubin.direct [Mass/Vol] 0.18 mg/dL Normal 0.00-0.30 [facility] Comment on above: Performed By: #### L 500.3400, L100.0100 #### [facility] [address] [place], [address] Globulin (S) [Mass/Vol] 2.6 g/dL Normal 2.2-4.2 [facility] Comment on above: Performed By: #### L 500.3400, L100.0100 #### [facility] [address] [place], [address] T PROT 5.9 g/dL Normal 5.9-8.4 [facility] Comment on above: Performed By: #### L 500.3400, L100.0100 #### [facility] [address] [place], [address] MCV (mean corpuscular volume ) determinationOrdered By: Monico Patterson on 10-24-2024 MCV (RBC) [Entitic vol] 92.2 fL 81-99 [facility] Mean corpuscular hemoglobin (MCH) determinationOrdered By: Monico Patterson on 10-24-2024 MCH (RBC) [Entitic mass] 32.8 pg High 27.0-32.0 [facility] Mean corpuscular hemoglobin concentration (MCHC) determinationOrdered By: Monico Patterson on 10-24-2024 MCHC (RBC) [Mass/Vol] 35.5 g/dL 32-36 [facility] Mean platelet volume determi nationOrdered By: Monico Patterson on 10-24-2024 Platelet mean volume (Bld) [Entitic vol] 10.8 fL 6.2-12.0 [facility] Monocyte percentageOrdered B y: Monico Patterson on 10-24-2024 Monocytes/100 WBC (Bld) 13.0 % High 0-10 [facility] Neutrophil percentageOrdered By: Monico Patterson on 10-24-2024 Neutrophils/100 WBC (Bld) 61.5 % 47-70 [facility] Non-gynecologic cytology rep ortOrdered By: Janice Hannah on 10-24-2024 Study report [facility] Nucleated red blood cell per centageOrdered By: Monico Patterson on 10-24-2024 Nucleated RBC/100 WBC (Bld) [Ratio] 0 % 0-5 [facility] Platelet countOrdered By: Uche Patterson on 10-24-2024 Platelets (Bld) [#/Vol] 146 10*3/uL Low 150-450 [facility] Potassium measurement (mass/ volume)Ordered By: Monico Patterson on 10-24-2024 Potassium (Unsp spec) [Mass/Vol] 3.8 mmol/L 3.3-5.1 [facility] RBC Auto (Bld) [#/Vol]Ordere d By: Monico Patterson on 10-24-2024 RBC (Bld) [#/Vol] 4.09 10*6/uL Low 4.2-5.4 [facility] Serum creatinine measurement (mass/volume)Ordered By: Monico Patterson on 10-24-2024 Creatinine [Mass/Vol] 0.61 mg/dL Low 0.70-1.20 [facility] Serum globulin measurementOr dered By: Monico Patterson on 10-24-2024 Globulin (S) [Mass/Vol] 2.6 g/dL 2.2-4.2 [facility] Serum glucose measurement (m ass/volume)Ordered By: Monico Patterson on 10-24-2024 Glucose [Mass/Vol] 108 mg/dL High 70-99 [facility] Serum or plasma alanine chavira otransferase (ALT) measurementOrdered By: Monico Patterson on 10-24-2024 ALT [Catalytic activity/Vol] 23 U/L <35 [facility] Serum or plasma albumin hair urement (mass/volume)Ordered By: Monico Patterson on 10-24-2024 Albumin [Mass/Vol] 3.3 g/dL Low 3.4-4.8 [facility] Serum or plasma alkaline mary anne sphatase measurementOrdered By: Monico Patterson on 10-24-2024 ALP [Catalytic activity/Vol] 61 U/L 35-104 [facility] Serum or plasma calcium hair urement (mass/volume)Ordered By: Monico Patterson on 10-24-2024 Calcium [Mass/Vol] 9.0 mg/dL 7.6-11.0 [facility] Serum or plasma urea nitroge n measurement (mass/volume)Ordered By: Monico Patterson on 10-24-2024 Urea nitrogen [Mass/Vol] 5 mg/dL 4-19 [facility] Sodium levelOrdered By: Rochelle Patterson on 10-24-2024 Sodium [Moles/Vol] 137 mmol/L 133-145 [facility] Total proteinOrdered By: Neva Patterson on 10-24-2024 Protein [Mass/Vol] 5.9 g/dL 5.9-8.4 [facility] White blood cell (WBC) count Ordered By: Monico Patterson on 10-24-2024 WBC (Bld) [#/Vol] 8.3 10*3/uL 4.4-11.0 [facility] ENTERIC PATHOGEN PANEL STOOL on 10-23-2024 [...] VIBRIO Not Detected Yersinia Not Detected Normal [facility] Comment on above: Performed By: #### L 499.0043 #### [facility] [address] [place], [address] Gamma glutamyl transferase ( GGT) measurementOrdered By: Monico Patterson on 10-23-2024 Amylase [Catalytic activity/Vol] 25 U/L 0-60 [facility] Comment on above: Performed at: [address] [id number] Director: Orlin Wagner PhD, Phone: [phone] LDHon 10-23-2024 LDH 264 U/L High 84-246 [facility] Comment on above: Result Comment: Hemo lysis present, Results??could be affected. ?? Performed By: #### L 500.3400, L100.0100 #### [facility] [address] [place], [address] Lactate dehydrogenase (LDH) measurementOrdered By: Monico Patterson on 10-23-2024 LDH [Catalytic activity/Vol] 264 U/L High 84-246 [facility] Comment on above: Hemolysis present, R esults could be affected. Liver Profileon 10-23-2024 Albumin [Mass/Vol] 3.2 g/dL Low 3.4-4.8 [facility] Comment on above: Performed By: #### L 500.3400, L100.0100 #### [facility] [address] [place], [address] ALK PHOS 60 U/L Normal 35-104 [facility] Comment on above: Performed By: #### L 500.3400, L100.0100 #### [facility] [address] [place], [address] ALT [Catalytic activity/Vol] 28 U/L Normal <=34 [facility] Comment on above: Performed By: #### L 500.3400, L100.0100 #### [facility] [address] [place], [address] AST [Catalytic activity/Vol] 28 U/L Normal <=31 [facility] Comment on above: Performed By: #### L 500.3400, L100.0100 #### [facility] [address] [place], [address] Bilirubin [Mass/Vol] 0.28 mg/dL Normal 0.00-1.30 [facility] Comment on above: Performed By: #### L 500.3400, L100.0100 #### [facility] [address] [place], [address] Bilirubin.direct [Mass/Vol] 0.11 mg/dL Normal 0.00-0.30 [facility] Comment on above: Performed By: #### L 500.3400, L100.0100 #### [facility] [address] [place], [address] Globulin (S) [Mass/Vol] 2.6 g/dL Normal 2.2-4.2 [facility] Comment on above: Performed By: #### L 500.3400, L100.0100 #### [facility] [address] [place], [address] T PROT 5.8 g/dL Low 5.9-8.4 [facility] Comment on above: Performed By: #### L 500.3400, L100.0100 #### [facility] [address] [place], [address] Phosphoruson 10-23-2024 Phosphate [Mass/Vol] 2.1 mg/dL Low 2.7-4.5 [facility] Comment on above: Performed By: #### L 501.2300, L506.1001 #### [facility] [address] [place], [address] Vitamin D,25 Hydroxyon 10-23 Vitamin D 25-OH 38.8 ng/mL Normal 30-100 [facility] Comment on above: Result Comment: Leisa min D Status Deficiency: <20 ng/mL (50nmol/L) Insufficiency: 20-30 ng/mL (50-75 nmol/L) Sufficiency: 30-100 ng/mL (75-250 nmol/L) Toxicity: >100 ng/mL (>250 nmol/L) Performed By: #### L 501.2300, L506.1001 #### [facility] [address] [place], [address] CBC W/Diff, Automatedon 05-0 6-5 Absolute Lymph 1.29 X10 3/uL Normal 0.83-4.51 [facility] Comment on above: Performed By: #### L 501.5200, L509.1000 #### [facility] [address] [place], [address] Absolute Neut 3.7 X10 3/uL Normal 2.0-7.7 [facility] Comment on above: Performed By: #### L 501.5200, L509.1000 #### [facility] [address] [place], [address] Basophils/100 WBC (Bld) 0.3 % Normal 0-1 [facility] Comment on above: Performed By: #### L 501.5200, L509.1000 #### [facility] [address] [place], [address] Eosinophils/100 WBC (Bld) 2.0 % Normal 0-5 [facility] Comment on above: Performed By: #### L 501.5200, L509.1000 #### [facility] [address] [place], [address] Erythrocyte distribution width (RBC) [Ratio] 14.4 % Normal 11.6-14.6 [facility] Comment on above: Performed By: #### L 501.5200, L509.1000 #### [facility] [address] [place], [address] Hematocrit (Bld) [Volume fraction] 35.7 % Low 37-47 [facility] Comment on above: Performed By: #### L 501.5200, L509.1000 #### [facility] [address] [place], [address] Hemoglobin (Bld) [Mass/Vol] 12.8 g/dL Normal 12.0-15.0 [facility] Comment on above: Performed By: #### L 501.5200, L509.1000 #### [facility] [address] [place], [address] IG% 0.700 Normal 0.0-0.9 [facility] Comment on above: Result Comment: IG% - Immature Granulocytes (promyelocytes, myelocytes and metamyelocytes) > 1% indicates that a LEFT SHIFT is Present. Performed By: #### L 501.5200, L509.1000 #### [facility] [address] [place], [address] Lymphocytes/100 WBC (Bld) 21.5 % Normal 19-41 [facility] Comment on above: Performed By: #### L 501.5200, L509.1000 #### [facility] [address] [place], [address] MCH (RBC) [Entitic mass] 32.8 pg High 27.0-32.0 [facility] Comment on above: Performed By: #### L 501.5200, L509.1000 #### [facility] [address] [place], [address] MCHC (RBC) [Mass/Vol] 35.9 g/dL Normal 32-36 [facility] Comment on above: Performed By: #### L 501.5200, L509.1000 #### [facility] [address] [place], [address] MCV (RBC) [Entitic vol] 91.5 fL Normal 81-99 [facility] Comment on above: Performed By: #### L 501.5200, L509.1000 #### [facility] [address] [place], [address] Monocytes/100 WBC (Bld) 14.7 % High 0-10 [facility] Comment on above: Performed By: #### L 501.5200, L509.1000 #### [facility] [address] [place], [address] Neutrophils/100 WBC (Bld) 60.8 % Normal 47-70 [facility] Comment on above: Performed By: #### L 501.5200, L509.1000 #### [facility] [address] [place], [address] Nucleated RBC (Bld) [#/Vol] 0 10*3/uL Normal 0-5 [facility] Comment on above: Performed By: #### L 501.5200, L509.1000 #### [facility] [address] [place], [address] Platelet mean volume (Bld) [Entitic vol] 10.6 fL Normal 6.2-12.0 [facility] Comment on above: Performed By: #### L 501.5200, L509.1000 #### [facility] [address] [place], [address] Platelets (Bld) [#/Vol] 149 10*3/uL Low 150-450 [facility] Comment on above: Performed By: #### L 501.5200, L509.1000 #### [facility] [address] [place], [address] RBC (Bld) [#/Vol] 3.90 10*6/uL Low 4.2-5.4 [facility] Comment on above: Performed By: #### L 501.5200, L509.1000 #### [facility] [address] [place], [address] RDW SD 48.1 fl High 35.1-43.9 [facility] Comment on above: Performed By: #### L 501.5200, L509.1000 #### [facility] [address] [place], [address] WBC (Bld) [#/Vol] 6.0 10*3/uL Normal 4.4-11.0 [facility] Comment on above: Performed By: #### L 501.5200, L509.1000 #### [facility] [address] [place], [address] Calculated very low density lipoprotein (VLDL) cholesterol measurementOrdered By: Mango Gale on 10-22-2024 Calculated very low density lipoprotein (VLDL) cholesterol measurement 17 mg/dL 5-40 [facility] Comprehensive Metabolic Prof ilon 10-22-2024 Albumin [Mass/Vol] 3.0 g/dL Low 3.4-4.8 [facility] Comment on above: Performed By: #### L 499.0043 #### [facility] [address] [place], [address] Albumin/Globulin [Mass ratio] 1.2 {ratio} Normal 0.9-2.4 [facility] Comment on above: Performed By: #### L 499.0043 #### [facility] [address] [place], [address] ALK PHOS 55 U/L Normal 35-104 [facility] Comment on above: Performed By: #### L 499.0043 #### [facility] [address] [place], [address] ALT [Catalytic activity/Vol] 32 U/L Normal <=34 [facility] Comment on above: Performed By: #### L 499.0043 #### [facility] [address] [place], [address] AST [Catalytic activity/Vol] 28 U/L Normal <=31 [facility] Comment on above: Performed By: #### L 499.0043 #### [facility] [address] [place], [address] Bilirubin [Mass/Vol] 0.30 mg/dL Normal 0.00-1.30 [facility] Comment on above: Performed By: #### L 499.0043 #### [facility] [address] [place], [address] BUN/CRE 9.8 RATIO Low 10-20 [facility] Comment on above: Performed By: #### L 499.0043 #### [facility] [address] [place], [address] Calcium [Mass/Vol] 8.5 mg/dL Normal 7.6-11.0 [facility] Comment on above: Performed By: #### L 499.0043 #### [facility] [address] [place], [address] Chloride [Moles/Vol] 104 mmol/L Normal 98-108 [facility] Comment on above: Performed By: #### L 499.0043 #### [facility] [address] [place], [address] CO2 [Moles/Vol] 15.9 mmol/L Low 21.0-32.0 [facility] Comment on above: Performed By: #### L 499.0043 #### [facility] [address] [place], [address] Creatinine [Mass/Vol] 0.56 mg/dL Low 0.70-1.20 [facility] Comment on above: Performed By: #### L 499.0043 #### [facility] [address] [place], [address] ECRCL 36.72 ml/min Low 50-250 [facility] Comment on above: Performed By: #### L 499.0043 #### [facility] [address] [place], [address] GAP 19 High 5-15 [facility] Comment on above: Performed By: #### L 499.0043 #### [facility] [address] [place], [address] GFR/1.73 sq M.predicted among non-blacks MDRD (S/P/Bld) [Vol rate/Area] 96 mL/min/{1.73_m2} Normal >60 [facility] Comment on above: Result Comment: mL/m in/1.73m2 CKD-EPI Creatinine Equation (2020) Performed By: #### L 499.0043 #### [facility] [address] [place], [address] Globulin (S) [Mass/Vol] 2.5 g/dL Normal 2.2-4.2 [facility] Comment on above: Performed By: #### L 499.0043 #### [facility] [address] [place], [address] Glucose [Mass/Vol] 74 mg/dL Normal 70-99 [facility] Comment on above: Performed By: #### L 499.0043 #### [facility] [address] [place], [address] Potassium [Moles/Vol] 3.7 mmol/L Normal 3.3-5.1 [facility] Comment on above: Performed By: #### L 499.0043 #### [facility] [address] [place], [address] Sodium [Moles/Vol] 139 mmol/L Normal 133-145 [facility] Comment on above: Performed By: #### L 499.0043 #### [facility] [address] [place], [address] T PROT 5.5 g/dL Low 5.9-8.4 [facility] Comment on above: Performed By: #### L 499.0043 #### [facility] [address] [place], [address] Urea nitrogen [Mass/Vol] 6 mg/dL Normal 4-19 [facility] Comment on above: Performed By: #### L 499.0043 #### [facility] [address] [place], [address] ERCP Biliary/Pancreason ERCP Biliary/Pancreas [facility] Imaging Services [address] [place] [address] ERCP Biliary/Pancreas MR#: [id number] Acct: [id number] Name: ROBI OLIVARES Rep #: [id number] : 1950 F 73 From: Avery Garza MD PCP: Dr. Jose Hyed MD Status: ADM IN Study: ERCP Biliary/Pancreas Date of Exam: 10/22/24 Exam# [id number] Ordering Dr: Heber Borrego DO EXAM: ENDOSCOPIC [...] Dr. Jose Hyde MD; Heber Borrego DO Golf Sales Manager: Signed Normal [facility] ERCP Reporton 10-22-2024 ERCP Report [facility] Medical Records Department [address] [place] [address] ERCP Report MR#: [id number] Acct: [id number] Name: ROBI OLIVARES Rep #: [id number] : 1950 73 From: Heber Borrego DO [...] hours 45 minutes 36 seconds Findings: The data security administrator film was normal. The esophagus was successfully [...] biliary sp (more content not included)... Normal [facility] L499.0042on 10-22-2024 Trop T High Sen 25 ng/L High <=14 [facility] Comment on above: Performed By: #### L 499.0043 #### [facility] [address] [place], [address] L499.0043on 10-22-2024 Trop T High Sen 21 ng/L High <=14 [facility] Comment on above: Performed By: #### L 499.0043 #### [facility] [address] [place], [place], [id number] [phone] LDL calc ser/plasOrdered By: Mango Gale on 10-22-2024 Cholesterol in LDL [Mass/Vol] 91 mg/dL [facility] Comment on above: Uveoqdxmlu=154-492 m g/dL & Higher Yqdz=975 mg/dL or greater Lipid Profileon 10-22-2024 CHOL:HDL 3.45 Normal [facility] Comment on above: Performed By: #### L 499.0043 #### [facility] [address] [place], [place], [id number] ([address]) Cholesterol [Mass/Vol] 153 mg/dL Normal <=200 [facility] Comment on above: Result Comment: Chol esterol level, Desirable <200 mg/dL Borderline high cholesterol 200-239 mg/dL High cholesterol >=240 mg/dL Recommendations of the NCEP Adult Treatment Panel for the following risk-cutoff thresholds for the [place] population. Performed By: #### L 499.0043 #### [facility] [address] [place], [address] Cholesterol in HDL [Mass/Vol] 44 mg/dL Normal [facility] Comment on above: Result Comment: Dea onal Cholesterol Education Program (NCEP) guidelines: <40 mg/dL: Low HDL-cholesterol (major risk factor for CHD) >= 60 mg/dL: High HDL-cholesterol (negative risk factor for CHD) HDL-cholesterol is affected by a number of factors, e.g. smoking, exercise, hormones, sex and age. Performed By: #### L 499.0043 #### [facility] [address] [place], [address] Cholesterol in LDL [Mass/Vol] 91 mg/dL Normal [facility] Comment on above: Result Comment: Bord vjhxtd=087-579 mg/dL Higher Kwax=869 mg/dL or greater Performed By: #### L 499.0043 #### [facility] [address] [place], [address] Cholesterol in VLDL [Mass/Vol] 17 mg/dL Normal 5-40 [facility] Comment on above: Performed By: #### L 499.0043 #### [facility] [address] [place], [address] Triglyceride [Mass/Vol] 86 mg/dL Normal [facility] Comment on above: Result Comment: The drugs N-Acetylcysteine and Metamizole may falsely depress this assay. Normal range: <150 mg/dL Borderline High: 150-199 mg/dL High: 200-499 mg/dL Very High: >500 mg/dL Performed By: #### L 499.0043 #### [facility] [address] [facility] [place], [address] MR/CON.PCM.GIon 10-22-2024 MR/CON.PCM.GI [facility] Medical Records Department [address] [facility] [place] [address] Consultation - 10/22/24 1454 MR#: [id number] Acct: [id number] Name: ROBI OLIVARES Rep #: [id number] : 1950 73 From: Heber Borrego PCP: Dr. Jose Hyde MD Status:ADM IN Location: [place] [id number] HPI Consult Data Date of Consult: 10/22/24 HPI Narrative Reason for Consultation: Abnormal CT and abnormal MRI HPI Narrative: 73-year-old female history of non-ST segment elevation GA with CAD and stent on Plavix. Hypothyroidism [...] by ERCP. Correlate with serum bilirubin. L [facility] Medical History Alcohol abuse Bipolar disorder Depression Chronic pain Rheumatoid arthritis Osteoporosis GERD (gastroesophageal reflux disease) Former smoker Atrial fibrillation Hypertension Myocardial infarct Migraines Atherosclerotic heart disease of [place] coronary artery without angina pectoris Pure hypercholesterolemia IBS (irritable bowel syndrome) Hypothyroidism Presence of stent in coronary artery ( 08/08/12) Atherosclerotic heart disease of [place] coronary artery without angina pectoris Benign essential [...] never sub (more content not included)... Normal [facility] MR/POSTOP.ANEon 10-22-2024 MR/POSTOP.[facility] Medical Records Department [address] [place] [address] Anesthesia Postop Eval I 10/22/24 1744 MR#: [id number] Acct: [id number] Name: ROBI OLIVARES Rep #: [id number] : 1950 73 From: Rom Randall MD PCP: Dr. Joes Hyde MD Status:ADM IN Y Race: C Location: [place] [address] Anesthesia: Postop Eval I Current Vital Signs [...] MD Cosigner Signature: Date CC: Signed Normal [facility] MR/[id number] 10-22-2024 [facility] Medical Records Department [address] [place] [address] Anesthesia Postop Eval II 10/22/24 1854 MR#: [id number] Acct: [id number] Name: ROBI OLIVARES Rep #: [id number] : 1950 73 From: Rom Randall MD PCP: Dr. Jose Hyde MD Status:ADM IN Y Race: C Location: [place] [address] Anesthesia Postop Eval I Sum Postop Eval [...] MD Cosigner Signature: Date CC: Signed Normal [facility] MRCP Abdomen without Contras ton 10-22-2024 MRCP Abdomen without Contrast [facility] Imaging Services [address] [place] [address] [id number] MRCP Abdomen without Contrast MR#: [id number] Acct: [id number] Name: ROBI OLIVARES Rep #: [id number] : 1950 F 73 From: Arya Henao MD PCP: Dr. Jose Hyde MD Status: ADM IN Study: MRCP Abdomen without Contrast Date of Exam: Exam# [id number] Ordering Dr: Mango Cornejo DO PROCEDURE: MRCP [...] 3. Additional description as above. Reading Location: [facility] CC: Dr. Mango Cornejo DO; Dr. Jose Hyde MD Golf Sales Manager: Signed Normal [facility] Magnetic resonance imaging r eportOrdered By: Arya Henao on 10-22-2024 Study report [facility] Imaging Services [address] [place] [place] [address] MRCP Abdomen without Contrast MR#: [id number] Acct: [id number] Name: ROBI OLIVARES Rep #: [id number] : 1950 F 73 From: Mela Henao MD PCP: Dr. Jose Hyde MD Status: AD M IN Study:MRCP Abdomen without Contrast Date of E xam: 10/22/24 Exam# [id number] Ordering Dr: Mango Cedillo DO PROCEDURE: MRCP [...] 3. Additional description as above. Reading Location: [id number] CC: Dr. Mango Cornejo DO; Dr. Jose Hyde MD ~ Golf Sales Manager: Signed [facility] Phosphoruson 10-22-2024 Phosphate [Mass/Vol] 1.3 mg/dL Invalid Interpretation Code 2.7-4.5 [facility] Comment on above: Performed By: #### L 499.0043 #### [facility] [address] [place], [address] Screening total cholesterol/ high density lipoprotein (HDL) cholesterol ratioOrdered By: Mango Gale on 10-22-2024 Cholesterol.total/Chol esterol in HDL [Mass ratio] 3.45 {ratio} [facility] Serum DNA double strand anti body assay (units/volume)Ordered By: Heber Borrego on 10-22-2024 DNA double strand Ab Qn (S) [IU]/mL 0-9 [facility] Comment on above: Negative <5 Equivoca l 5 - 9 Positive >9 Serum Scl-70 antibody assay (units/volume)Ordered By: Heber Borrego on 10-22-2024 SCL-70 extractable nuclear Ab Qn (S) <0.2 AI 0.0-0.9 [facility] Comment on above: Previous reported re sult: TNP AIEdited by: PRABHAKAR on 10/24/24:0908 AMENDED REPORT 10/24/24 0908 ANTISCLER previously reported as: Test not performed Serum or plasma albumin/glob ulin mass ratioOrdered By: Mango Gale on 10-22-2024 Albumin/Globulin [Mass ratio] 1.2 {ratio} 0.9-2.4 [facility] Serum or plasma cholesterol in HDL measurement (mass/volume)Ordered By: Mango Gale on 10-22-2024 Cholesterol in HDL [Mass/Vol] 44 mg/dL >40 [facility] Comment on above: National Cholesterol Education Program (NCEP) guidelines:<40 mg/dL: Low HDL-cholesterol (major risk factor for CHD)>= 60 mg/dL: High HDL-cholesterol (negative risk factor for CHD)HDL-cholesterol is affected by a number of factors, e.g. smoking, exercise, hormones, sex and age. Serum or plasma cholesterol measurement (mass/volume)Ordered By: Mango Gale on 10-22-2024 Cholesterol [Mass/Vol] 153 mg/dL <201 [facility] Comment on above: Cholesterol level, D esirable <200 mg/dLBorderline high cholesterol 200-239 mg/dLHigh cholesterol >=240 mg/dLRecommendations of the NCEP Adult Treatment Panel for the following risk-cutoff thresholds for the [place] population. Special Stain Group IIon Special Stain Group II --------- Patient Age/Sex Location Account Attending Physician ROBI OLIVARES 73/F [facility] [id number] Dr. Monico Patterson MD Specimen: [id number] Received: 10/22/24 Status: LORI Flores Num: [id number] Spec Type: Fluid Subm Dr: Heber Borrego, [...] cytology and cell block preparation. 10/23/2024 CPT: 75338 Signed (signature on file) Dr. Janice Hannah DO 10/24/24 1315 Normal [facility] Comment on above: Performed By: #### L 499.0043 #### [facility] [address] [place], [place], [address] TSH DL <= 0.005 mIU/L QnOrde red By: Mango Gale on 10-22-2024 TSH Qn 2.670 uIU/mL 0.300-4.20 0 [facility] Thyroid Stim Hormone (TSH)on 10-22-2024 TSH 2.670 uIU/mL Normal 0.300-4.20 0 [facility] Comment on above: Performed By: #### L 499.0043 #### [facility] [address] [place], [place], [id number] Triglycerides measurementOrd ered By: Mango Gale on 10-22-2024 Triglyceride [Mass/Vol] 86 mg/dL <199 [facility] Comment on above: The drugs N-Acetylcy steine and Metamizole may falsely depress this assay. Normal range: <150 mg/dLBorderline High: 150-199 mg/dLHigh: 200-499 mg/dLVery High: >500 mg/dL Troponin T.cardiac [Mass/vol ume] in Serum or Plasma by High sensitivity methodOrdered By: Mango Gale on 10-22-2024 Troponin T.cardiac High sensitivity method [Mass/Vol] 21 ng/L High <14 [facility] Troponin T.cardiac High sensitivity method [Mass/Vol] 25 ng/L High <14 [facility] 12 Lead EKGon 10-21-2024 12 Lead EKG [facility] Cardiovascular Services [address] [place] [address] 12 Lead EKG 10/21/24 1440 MR#: [id number] Acct: [id number] Name: ROBI OLIVARES Rep #: [id number] : 1950 73 From: Steven Aguilar MD Attending Dr: Dr. Monico Patterson MD Status: DIS IN Ordering Dr: Jonas Samuels MD Date: 10/21/24 Location: [facility] Sex: F C Admitted: 10/21/24 [...] 15-Aug-2013) Abnormal ECG Confirmed by Steven Aguilar ([id number]), graphics editor SEDRICK FRANCO ([id number]) on 10/25/2024 11:53:25 AM Referred By: Mango Cornejo Confirmed By: Steven Aguilar 10/25/24 1153 Date Steven Aguilar MD CC: Dr. Mango Cornejo DO; Dr. Jonas Samuels MD; Dr. Jose Hyde MD; Dr. Monico Patterson MD Signed Normal [facility] Abdomen/Pelvis W IV Cont ONL Yon 10-21-2024 Abdomen/Pelvis W IV Cont ONLY [facility] Imaging Services [address] [place], [place] [id number] Abdomen/Pelvis W IV Cont ONLY MR#: [id number] Acct: [id number] Name: ROBI OLIVARES Rep #: [id number] : 1950 F 73 From: Arya Henao MD PCP: Dr. Jose Hyde MD Status: ADM IN Study: Abdomen/Pelvis W IV Cont ONLY Date of Exam: Exam# [id number] Ordering Dr: Jonas Samuels MD ADDENDUM by [...] known immunosuppression. END OF ADDENDUM Reading Location: [id number] 10/22/24 1052 Date cc: Dr. Jonas Samuels [...] 5. Additional description as above. Reading Location: [id number] CC: Dr. Jonas Samuels MD; Dr. Jose Hyde MD Golf Sales Manager: Signed Normal [facility] Amylaseon 10-21-2024 EDENILSON 26 U/L Low 28-100 [facility] Comment on above: Performed By: #### L 501.2300, L506.1001 #### [facility] [address] [place], [address] Bilirubin Test strip Ql (U)O rdered By: Jonas Samuels on 10-21-2024 Bilirubin Ql (U) Negative Negative [facility] CBC W/Diff, Automatedon 05-0 Absolute Lymph 1.95 X10 3/uL Normal 0.83-4.51 [facility] Comment on above: Performed By: #### L 501.2300, L506.1001 #### [facility] [address] [place], [address] Absolute Neut 4.0 X10 3/uL Normal 2.0-7.7 [facility] Comment on above: Performed By: #### L 501.2300, L506.1001 #### [facility] [address] [place], [address] Basophils/100 WBC (Bld) 0.3 % Normal 0-1 [facility] Comment on above: Performed By: #### L 501.2300, L506.1001 #### [facility] [address] [place], [address] Eosinophils/100 WBC (Bld) 1.0 % Normal 0-5 [facility] Comment on above: Performed By: #### L 501.2300, L506.1001 #### [facility] [address] [place], [address] Erythrocyte distribution width (RBC) [Ratio] 14.0 % Normal 11.6-14.6 [facility] Comment on above: Performed By: #### L 501.2300, L506.1001 #### [facility] [address] [place], [address] Hematocrit (Bld) [Volume fraction] 43.9 % Normal 37-47 [facility] Comment on above: Performed By: #### L 501.2300, L506.1001 #### [facility] [address] [place], [address] Hemoglobin (Bld) [Mass/Vol] 16.1 g/dL High 12.0-15.0 [facility] Comment on above: Performed By: #### L 501.2300, L506.1001 #### [facility] [address] [place], [address] IG% 0.400 Normal 0.0-0.9 [facility] Comment on above: Result Comment: IG% - Immature Granulocytes (promyelocytes, myelocytes and metamyelocytes) > 1% indicates that a LEFT SHIFT is Present. Performed By: #### L 501.2300, L506.1001 #### [facility] [address] [place], [address] Lymphocytes/100 WBC (Bld) 28.3 % Normal 19-41 [facility] Comment on above: Performed By: #### L 501.2300, L506.1001 #### [facility] [facility] [address] [place], [address] MCH (RBC) [Entitic mass] 32.5 pg High 27.0-32.0 [facility] Comment on above: Performed By: #### L 501.2300, L506.1001 #### [facility] [address] [place], [address] MCHC (RBC) [Mass/Vol] 36.7 g/dL High 32-36 [facility] Comment on above: Performed By: #### L 501.2300, L506.1001 #### [facility] [address] [place], [address] MCV (RBC) [Entitic vol] 88.7 fL Normal 81-99 [facility] Comment on above: Performed By: #### L 501.2300, L506.1001 #### [facility] [address] [place], [address] Monocytes/100 WBC (Bld) 12.0 % High 0-10 [facility] Comment on above: Performed By: #### L 501.2300, L506.1001 #### [facility] [address] [place], [address] Neutrophils/100 WBC (Bld) 58.0 % Normal 47-70 [facility] Comment on above: Performed By: #### L 501.2300, L506.1001 #### [facility] [address] [place], [address] Nucleated RBC (Bld) [#/Vol] 0 10*3/uL Normal 0-5 [facility] Comment on above: Performed By: #### L 501.2300, L506.1001 #### [facility] [address] [place], [address] Platelet mean volume (Bld) [Entitic vol] 11.6 fL Normal 6.2-12.0 [facility] Comment on above: Performed By: #### L 501.2300, L506.1001 #### [facility] [address] [place], [address] Platelets (Bld) [#/Vol] 198 10*3/uL Normal 150-450 [facility] Comment on above: Performed By: #### L 501.2300, L506.1001 #### [facility] [address] [place], [address] RBC (Bld) [#/Vol] 4.95 10*6/uL Normal 4.2-5.4 [facility] Comment on above: Performed By: #### L 501.2300, L506.1001 #### [facility] [address] [place], [address] RDW SD 44.8 fl High 35.1-43.9 [facility] Comment on above: Performed By: #### L 501.2300, L506.1001 #### [facility] [address] [place], [address] WBC (Bld) [#/Vol] 6.9 10*3/uL Normal 4.4-11.0 [facility] Comment on above: Performed By: #### L 501.2300, L506.1001 #### [facility] [address] [place], [address] Chest PA and Lateralon 10-21 Chest PA and Lateral [facility] Imaging Services [address] [place] [address] Chest PA and Lateral MR#: [id number] Acct: [id number] Name: ROBI OLIVARES Rep #: [id number] : 1950 F 73 From: Brynn Sheth PCP: Dr. Jose Hyde MD Status: [facility] Study: Chest PA and Lateral Date of Exam: 10/21/24 Exam# [id number] Ordering Dr: Jonas Samuels MD PROCEDURE: CHEST [...] osteopenia of the bony thorax. Reading Location: [facility] CC: Dr. Jonas Samuels MD; Dr. Jose Hyde MD Golf Sales Manager: Signed Normal [facility] Comprehensive Metabolic Prof ilon 10-21-2024 Albumin [Mass/Vol] 4.0 g/dL Normal 3.4-4.8 [facility] Comment on above: Performed By: #### L 501.2300, L506.1001 #### [facility] [address] [place], [address] Albumin/Globulin [Mass ratio] 1.2 {ratio} Normal 0.9-2.4 [facility] Comment on above: Performed By: #### L 501.2300, L506.1001 #### [facility] [address] [place], [address] ALK PHOS 75 U/L Normal 35-104 [facility] Comment on above: Performed By: #### L 501.2300, L506.1001 #### [facility] [address] [place], [address] ALT [Catalytic activity/Vol] 48 U/L High <=34 [facility] Comment on above: Performed By: #### L 501.2300, L506.1001 #### [facility] [address] [place], [address] AST [Catalytic activity/Vol] 40 U/L High <=31 [facility] Comment on above: Performed By: #### L 501.2300, L506.1001 #### [facility] [address] [place], [address] Bilirubin [Mass/Vol] 0.45 mg/dL Normal 0.00-1.30 [facility] Comment on above: Performed By: #### L 501.2300, L506.1001 #### [facility] [address] [place], [address] BUN/CRE 13.3 RATIO Normal 10-20 [facility] Comment on above: Performed By: #### L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 Comment: The serum:whole blood ethanol ratio is approximately 1.14 and varies slightly with hematocrit. Medical Alcohol reference interval and critical value in non-tolerant individuals; 50 - 100 Impairment 100 Intoxication 100 - 250 Severe Poisoning 250 - 400 Deep/possible fatal coma Performed By: #### L 500.3400, L100.0100 #### [facility] [address] [place], [address] Basic Metabolic Profile (BMP )on 04-07-2024 BUN/CRE 14.7 RATIO Normal 04-07 [facility] Comment on above: Performed By: #### L 500.3400, L100.0100 #### [facility] [address] [place], [address] CA,Total 9.6 mg/dL Normal 8.5-10.1 [facility] Comment on above: Performed By: #### L 500.3400, L100.0100 #### [facility] [address] [place], [address] Chloride [Moles/Vol] 108 mmol/L High 98-107 [facility] Comment on above: Performed By: #### L 500.3400, L100.0100 #### [facility] [address] [place], [address] CO2 [Moles/Vol] 26.0 mmol/L Normal 21.0-32.0 [facility] Comment on above: Performed By: #### L 500.3400, L100.0100 #### [facility] [address] [place], [address] Creatinine [Mass/Vol] 0.75 mg/dL Normal 0.55-1.02 [facility] Comment on above: Result Comment: The validity of the calculated GFR GFRAA in patients over 70 years has not been determined. Clinical correlation is essential. Performed By: #### L 500.3400, L100.0100 #### [facility] [address] [place], [address] EST GFR - AA 98 mL/min Normal >60 [facility] Comment on above: Result Comment: Afri can Beninese GFR Calc Performed By: #### L 500.3400, L100.0100 #### [facility] [address] [place], [address] GAP 6 Normal 5-15 [facility] Comment on above: Performed By: #### L 500.3400, L100.0100 #### [facility] [address] [place], [address] GFR/1.73 sq M.predicted among non-blacks MDRD (S/P/Bld) [Vol rate/Area] 81 mL/min/{1.73_m2} Normal >60 [facility] Comment on above: Result Comment: Non- GFR Calc Performed By: #### L 500.3400, L100.0100 #### [facility] [address] [place], [address] Glucose [Mass/Vol] 119 mg/dL High 74-106 [facility] Comment on above: Result Comment: Fast ing Glucose result from 100 to 125 mg/dL suggests IMPAIRED HOMEOSTASIS per A.D.A. criteria. Performed By: #### L 500.3400, L100.0100 #### [facility] [address] [place], [address] Potassium [Moles/Vol] 3.0 mmol/L Low 3.5-5.1 [facility] Comment on above: Performed By: #### L 500.3400, L100.0100 #### [facility] [address] [place], [address] Sodium [Moles/Vol] 140 mmol/L Normal 136-145 [facility] Comment on above: Performed By: #### L 500.3400, L100.0100 #### [facility] [address] [place], [address] Urea nitrogen [Mass/Vol] 11 mg/dL Normal 7-18 [facility] Comment on above: Performed By: #### L 500.3400, L100.0100 #### [facility] [address] [place], [address] Bedside Glucoseon 04-07-2024 FINGERSTICK GLU 114 mg/dL High 74-106 [facility] Comment on above: Result Comment: JERONIMO PATELENT OF PATIENT CARE PER NURSING PROTOCOL Performed By: #### L 500.3400 #### [facility] [address] [place], [address] Brain/Head without Contrasto n 04-07-2024 Brain/Head without Contrast [facility] Imaging Services [address] [place] [address] Brain/Head without Contrast MR#: [id number] Acct: [id number] Name: ROBI OLIVARES Rep #: [id number] : 1950 F 73 From: Radha Suggs PCP: Dr. Jose Hyde MD Status: REG ER Study: Brain/Head without Contrast Date of Exam: 03/20 Exam# [id number] Ordering Dr: Markell Pino DO [id number] INDICATION: blurred vision EXAMINATION: CT BRAIN - [...] Jose Hyde MD; Dr. Markell Pino DO Golf Sales Manager: Signed Normal [facility] CBC W/Diff, Automatedon 03-20 Absolute Neut Normal 2.0-7.7 [facility] Comment on above: Result Comment: DUPL ICATE, SEE SPECIMEN 1020:H113 Performed By: #### L 500.3400, L100.0100 #### [facility] [address] [place], [address] HCT Normal 37-47 [facility] Comment on above: Result Comment: DUPL ICATE, SEE SPECIMEN 1020:H113 Performed By: #### L 500.3400, L100.0100 #### [facility] [address] [place], [address] HGB Normal 12.0-15.0 [facility] Comment on above: Result Comment: DUPL ICATE, SEE SPECIMEN 1020:H113 Performed By: #### L 500.3400, L100.0100 #### [facility] [address] [place], [address] MCH Normal 27.0-32.0 [facility] Comment on above: Result Comment: DUPL ICATE, SEE SPECIMEN 1020:H113 Performed By: #### L 500.3400, L100.0100 #### [facility] [address] [place], [address] MCHC Normal 32-36 [facility] Comment on above: Result Comment: DUPL ICATE, SEE SPECIMEN 1020:H113 Performed By: #### L 500.3400, L100.0100 #### [facility] [address] [place], [address] MCV Normal 81-99 [facility] Comment on above: Result Comment: DUPL ICATE, SEE SPECIMEN 1020:H113 Performed By: #### L 500.3400, L100.0100 #### [facility] [address] [place], [address] NEUT% Normal 47-70 [facility] Comment on above: Result Comment: DUPL ICATE, SEE SPECIMEN 1020:H113 Performed By: #### L 500.3400, L100.0100 #### [facility] [address] [place], [address] PLT Normal 150-450 [facility] Comment on above: Result Comment: DUPL ICATE, SEE SPECIMEN 1020:H113 Performed By: #### L 500.3400, L100.0100 #### [facility] [address] [place], [address] RBC Normal 4.2-5.4 [facility] Comment on above: Result Comment: DUPL ICATE, SEE SPECIMEN 1020:H113 Performed By: #### L 500.3400, L100.0100 #### [facility] [address] [place], [address] RDW CV Normal 11.6-14.6 [facility] Comment on above: Result Comment: DUPL ICATE, SEE SPECIMEN 1020:H113 Performed By: #### L 500.3400, L100.0100 #### [facility] [address] [place], [address] RDW SD Normal 35.1-43.9 [facility] Comment on above: Result Comment: DUPL ICATE, SEE SPECIMEN 1020:H113 Performed By: #### L 500.3400, L100.0100 #### [facility] [address] [place], [address] WBC Normal 4.4-11.0 [facility] Comment on above: Result Comment: DUPL ICATE, SEE SPECIMEN 1020:H113 Performed By: #### L 500.3400, L100.0100 #### [facility] [address] [place], [address] Absolute Lymph 2.76 X10 3/uL Normal 0.83-4.51 [facility] Comment on above: Performed By: #### L 500.3400, L100.0100 #### [facility] [address] [place], [address] Absolute Neut 4.7 X10 3/uL Normal 2.0-7.7 [facility] Comment on above: Performed By: #### L 500.3400, L100.0100 #### [facility] [address] [place], [address] Basophils/100 WBC (Bld) 0.6 % Normal 0-1 [facility] Comment on above: Performed By: #### L 500.3400, L100.0100 #### [facility] [address] [place], [address] Eosinophils/100 WBC (Bld) 2.9 % Normal 0-5 [facility] Comment on above: Performed By: #### L 500.3400, L100.0100 #### [facility] [address] [place], [address] Erythrocyte distribution width (RBC) [Ratio] 13.3 % Normal 11.6-14.6 [facility] Comment on above: Performed By: #### L 500.3400, L100.0100 #### [facility] [address] [place], [address] Hematocrit (Bld) [Volume fraction] 42.0 % Normal 37-47 [facility] Comment on above: Performed By: #### L 500.3400, L100.0100 #### [facility] [address] [place], [address] Hemoglobin (Bld) [Mass/Vol] 14.7 g/dL Normal 12.0-15.0 [facility] Comment on above: Performed By: #### L 500.3400, L100.0100 #### [facility] [address] [place], [address] IG% 0.200 Normal 0.0-0.9 [facility] Comment on above: Result Comment: IG% - Immature Granulocytes (promyelocytes, myelocytes and metamyelocytes) > 1% indicates that a LEFT SHIFT is Present. Performed By: #### L 500.3400, L100.0100 #### [facility] [address] [place], [address] Lymphocytes/100 WBC (Bld) 33.1 % Normal 19-41 [facility] Comment on above: Performed By: #### L 500.3400, L100.0100 #### [facility] [address] [place], [address] MCH (RBC) [Entitic mass] 33.0 pg High 27.0-32.0 [facility] Comment on above: Performed By: #### L 500.3400, L100.0100 #### [facility] [address] [place], [address] MCHC (RBC) [Mass/Vol] 35.0 g/dL Normal 32-36 [facility] Comment on above: Performed By: #### L 500.3400, L100.0100 #### [facility] [address] [place], [address] MCV (RBC) [Entitic vol] 94.4 fL Normal 81-99 [facility] Comment on above: Performed By: #### L 500.3400, L100.0100 #### [facility] [address] [place], [address] Monocytes/100 WBC (Bld) 6.7 % Normal 0-10 [facility] Comment on above: Performed By: #### L 500.3400, L100.0100 #### [facility] [address] [place], [address] Neutrophils/100 WBC (Bld) 56.5 % Normal 47-70 [facility] Comment on above: Performed By: #### L 500.3400, L100.0100 #### [facility] [address] [place], [address] Nucleated RBC (Bld) [#/Vol] 0 10*3/uL Normal 0-5 [facility] Comment on above: Performed By: #### L 500.3400, L100.0100 #### [facility] [address] [place], [address] Platelet mean volume (Bld) [Entitic vol] 9.9 fL Normal 6.2-12.0 [facility] Comment on above: Performed By: #### L 500.3400, L100.0100 #### [facility] [address] [place], [address] Platelets (Bld) [#/Vol] 166 10*3/uL Normal 150-450 [facility] Comment on above: Performed By: #### L 500.3400, L100.0100 #### [facility] [address] [place], [address] RBC (Bld) [#/Vol] 4.45 10*6/uL Normal 4.2-5.4 [facility] Comment on above: Performed By: #### L 500.3400, L100.0100 #### [facility] [address] [place], [address] RDW SD 46.3 fl High 35.1-43.9 [facility] Comment on above: Performed By: #### L 500.3400, L100.0100 #### [facility] [address] [place], [address] WBC (Bld) [#/Vol] 8.4 10*3/uL Normal 4.4-11.0 [facility] Comment on above: Performed By: #### L 500.3400, L100.0100 #### [facility] [address] [place], [address] CTA Head AND Neck W/ Contras ton 04-07-2024 CTA Head AND Neck W/ Contrast [facility] Imaging Services [address]Z [place], [place] [address] CTA Head AND Neck W/ Contrast MR#: [id number] Acct: [id number] Name: ROBI OLIVARES Rep #: [id number] : 1950 F 73 From: Steven Suggs PCP: Dr. Jose Hyde MD Status: REG ER Study: CTA Head AND Neck W/ Contrast Date of Exam: Exam# [id number] Ordering Dr: Markell Pino DO [id number] EXAM: CT ANGIOGRAPHY HEAD AND NECK WITH INTRAVENOUS CONTRAST CLINICAL INDICATION: blurred vision, confusion TECHNIQUE: [place] of [place]/head and neck CT angiography protocol [...] , CC: (more content not included)... Normal [facility] Chest 1 View (Portable)on Chest 1 View (Portable) [facility] Imaging Services [address] [place] [address] Chest 1 View (Portable) MR#: [id number] Acct: [id number] Name: ROBI OLIVARES Rep #: [id number] : 1950 F 73 From: Radha Suggs PCP: Dr. Jose Hyde MD Status: PRE ER Study: Chest 1 View (Portable) Date of Exam: 04/07/24 Exam# [id number] Ordering Dr: Markell Pino DO [id number] INDICATION: Stroke STROKE PROTOCOL, CONFUSION EXAMINATION/TECHNIQUE: X-RAY [...] Jose Hyde MD; Dr. Markell Pino DO Golf Sales Manager: Signed Normal [facility] Emergency Department Summary on 04-07-2024 Emergency Department Summary [facility] Medical Records Department [address] [place] [address] Emergency Department Summary 04/07/24 MR#: [id number] Acct: [id number] Name: ROBI OLIVARES Rep #: [id number] : 1950 73 From: Markell Pino DO PCP: Dr. Jose Hyde MD Status:DEP ER Location: ED [facility] History of Present Illness Chief Complaint: [...] speech. She denies weakness in the extremities. [facility] Medical History (Updated 04/08/24 @ 01:[address] Markell Pino DO) Atherosclerotic heart disease of [place] coronary artery without angina pectoris Pure hypercholesterolemia IBS (irritable bowel syndrome) Hypothyroidism Presence of stent in coronary artery ( 08/08/12) Atherosclerotic heart disease of [place] coronary artery without angina pectoris Benign essential [...] Oxygen Deliv (more content not included)... Normal [facility] Partial Thromboplast Timeon 04-07-2024 aPTT Coag (Bld) [Time] 28.4 s Normal 24.1-36.2 [facility] Comment on above: Performed By: #### L 500.3400, L100.0100 #### [facility] [address] [place], [address] Prothrombin Time w/INRon INR Coag (PPP) [Relative time] 1.0 {INR} Normal [facility] Comment on above: Performed By: #### L 500.3400, L100.0100 #### [facility] [address] [place], [address] PT Coag (PPP) [Time] 13.2 s Normal 11.7-14.9 [facility] Comment on above: Performed By: #### L 500.3400, L100.0100 #### [facility] [address] [place], [address] CNPNon 03-13-2024 [facility] Telephone (INTWS) -- ROBI OLIVARES ([id number]) 1950 F Date Time Provider Department 03/13/24 JOSE HYDE INTWS During your visit today, we recorded the following information about you: Corinna Rodriguez LPN 03/13/2024 9:37 AM Signed Faxed received from [employer] requesting a copy of office visit notes. [...] Date Reviewed: 10/16/2023 Reviewed by: Romina Chao APRN.INSTRUMENTATION TECH - Fully Assessed Reason for Visit: Forms [...] skin [L57.8] 05/05/2010 CAD (coronary artery disease), [place] coronary *10/14/2010 Coronary stent 10/14/2010 Carcinoma in [...] Encounter Status:Closed by CORINNA RODRIGUEZ on 03/13/24 [facility] Jatinder 01[facility]15-2024 [facility] (INTMWS[facility] -- MARSHALLROBI Dickinson ([id number]) 1950 F Date Time Provider Department 01/15/24 [...] Date Reviewed: 10/16/2023 Reviewed by: Romina Chao APRN.INSTRUMENTATION TECH - Fully Assessed Reason for Visit: Forms [...] skin [L57.8] 05/05/2010 CAD (coronary artery disease), [place] coronary *10/14/2010 Coronary stent 10/14/2010 Carcinoma in [...] Encounter Status:Closed by BEN[facility] (INTMWS[facility] -- ROBI OLIVARES ([id number]) 1950 F Date Time Provider Department 01/10/24 JOSE HYDE INTMWS During your visit today, we recorded the following information about you: Celina Saenz LPN 01/10/2024 2:03 PM Signed Received forms from [employer] requesting chart notes and patient's PCP to [...] Date Reviewed: 10/16/2023 Reviewed by: Romina Chao APRN.INSTRUMENTATION TECH - Fully Assessed Reason for Visit: DME [...] skin [L57.8] 05/05/2010 CAD (coronary artery disease), [place] coronary *10/14/2010 Coronary stent 10/14/2010 Carcinoma in [...] Status:Closed by CELINA SAENZ on 01/10/24 Normal [facility] CBC W Auto Differential pane l (Bld)on 10-16-2023 Basophils (Bld) [#/Vol] 0.08 10*3/uL [facility] Basophils/100 WBC (Bld) 0.7 % [facility] Differential cell count method Nom (Bld) Auto [facility] Eosinophils (Bld) [#/Vol] 0.22 10*3/uL [facility] Eosinophils/100 WBC (Bld) 1.9 % [facility] Erythrocyte distribution width (RBC) [Ratio] 13.2 % 11.5 - 15.0 % [facility] Hematocrit (Bld) [Volume fraction] 45.5 % 36.0 - 46.0 % [facility] Hemoglobin (Bld) [Mass/Vol] 15.6 g/dL High 11.5 - 15.5 g/dL [facility] Immature granulocytes (Bld) [#/Vol] 0.03 10*3/uL [facility] Immature granulocytes/100 WBC (Bld) 0.3 % [facility] Interpretation and review of laboratory results Abnormal [facility] Lymphocytes (Bld) [#/Vol] 2.94 10*3/uL [facility] Lymphocytes/100 WBC (Bld) 25.9 % [facility] MCH (RBC) [Entitic mass] 33.4 pg 26.0 - 34.0 pg [facility] MCHC (RBC) [Mass/Vol] 34.3 g/dL 30.5 - 36.0 g/dL [facility] MCV (RBC) [Entitic vol] 97.4 fL 80.0 - 100.0 fL [facility] Monocytes (Bld) [#/Vol] 0.78 10*3/uL [facility] Monocytes/100 WBC (Bld) 6.9 % [facility] Neutrophils (Bld) [#/Vol] 7.30 10*3/uL [facility] Neutrophils/100 WBC (Bld) 64.3 % [facility] Nucleated RBC (Bld) [#/Vol] NINF [facility] Nucleated RBC/100 WBC (Bld) [Ratio] 0.0 % /100 WBC [facility] Platelet mean volume (Bld) [Entitic vol] 12.2 fL 9.0 - 12.7 fL [facility] Platelets (Bld) [#/Vol] 209 10*3/uL [facility] RBC (Bld) [#/Vol] 4.67 10*6/uL 3.90 - 5.20 m/uL [facility] WBC (Bld) [#/Vol] 11.35 10*3/uL [facility] 2000 panelon 03-29-2023 Albumin [Mass/Vol] 4.2 g/dL 3.9 - 4.9 g/dL [facility] ALP [Catalytic activity/Vol] 79 U/L 34 - 123 U/L [facility] ALT [Catalytic activity/Vol] 14 U/L 7 - 38 U/L [facility] Anion gap [Moles/Vol] 12 mmol/L 9 - 18 mmol/L [facility] AST [Catalytic activity/Vol] 23 U/L 13 - 35 U/L [facility] Bilirubin [Mass/Vol] 0.3 mg/dL 0.2 - 1 .3 mg/dL [facility] Calcium [Mass/Vol] 9.7 mg/dL 8.5 - 10. 2 mg/dL [facility] Chloride [Moles/Vol] 103 mmol/L 97 - 10 5 mmol/L [facility] CO2 [Moles/Vol] 25 mmol/L 22 - 30 mmol/L [facility] Creatinine [Mass/Vol] 0.79 mg/dL 0.58 - 0.96 mg/dL [facility] Estimated Glomerular Filtration Rate 79 mL/min/1.73m >=60 mL/min/1.7 3m [facility] Glucose [Mass/Vol] 100 mg/dL High 74 - 99 mg/dL [facility] Potassium [Moles/Vol] 4.3 mmol/L 3.7 - 5.1 mmol/L [facility] Protein [Mass/Vol] 7.1 g/dL 6.3 - 8.0 g/dL [facility] Sodium [Moles/Vol] 140 mmol/L 136 - 144 mmol/L [facility] Urea nitrogen [Mass/Vol] 11 mg/dL 7 - 21 mg/dL [facility] T3 FREE BLDon 03-29-2023 Free T3 [Mass/Vol] 3.0 pg/mL 2.3 - 4.1 pg/mL [facility] T4 FREE/FREE THYROXon 2022 Free T4 [Mass/Vol] 1.5 ng/dL 0.9 - 1.7 ng/dL [facility] TSH Don 03-29-2023 TSH Qn 3.910 m[IU]/L 0.270 - 4.200 mIU/L [facility] VITAMIN D 25 HYDROXYon 03-29 25-hydroxyvitamin D3 [Mass/Vol] 65.6 ng/mL 31.0 - 80.0 ng/mL [facility] CBC panel Auto (Bld)on 03-28 Erythrocyte distribution width (RBC) [Ratio] 13.1 % 11.5 - 15.0 % [facility] Hematocrit (Bld) [Volume fraction] 45.8 % 36.0 - 46.0 % [facility] Hemoglobin (Bld) [Mass/Vol] 15.9 g/dL High 11.5 - 15.5 g/dL [facility] MCH (RBC) [Entitic mass] 33.8 pg 26.0 - 34.0 pg [facility] MCHC (RBC) [Mass/Vol] 34.7 g/dL 30.5 - 36.0 g/dL [facility] MCV (RBC) [Entitic vol] 97.2 fL 80.0 - 100.0 fL [facility] Nucleated RBC (Bld) [#/Vol] <0.01 k/uL [facility] Platelet mean volume (Bld) [Entitic vol] 11.4 fL 9.0 - 12.7 fL [facility] Platelets (Bld) [#/Vol] 233 10*3/uL 150 - 400 k/uL [facility] RBC (Bld) [#/Vol] 4.71 10*6/uL 3.90 - 5.20 m/uL [facility] WBC (Bld) [#/Vol] 8.83 10*3/uL 3.70 - 11.00 k/uL [facility] No Panel InformationOrdered By: Orlin Fletcher on 01-25-2023 Endomysial IgA Antibody Negative Negative [facility] Stool Calprotectin 232 ug/g 0-120 [facility] Comment on above: Concentration Interp retation Follow-Up< 5 - 50 ug/g Normal None>50 -120 ug/g Borderline Re-evaluate in 4-6 weeks >120 ug/g Abnormal Repeat as clinically indicatedPerformed at: [facility] [address] [id number] Director: Maru Sue MD, Phone: [phone] Serum IgA measurement (units /volume)Ordered By: Orlin Fletcher on 01-25-2023 IgA Qn (S) 105 mg/dL 64-422 [facility] Comment on above: Performed at: [address] [id number] Director: Orlin Wagner PhD, Phone: [phone] Serum or plasma C reactive p rotein measurement (mass/volume)Ordered By: Orlin Fletcher on 01-25-2023 CRP [Mass/Vol] mg/L 0.0-3.0 [facility] Comment on above: C-Reactive Protein ( CRP) provides useful information for thediagnosis, therapy and monitoring of inflammatory processesand associated diseases. For the evaluation of Relative Riskfor Cardiovascular Disease, a High Sensitivity CRP (HSCRP)should be ordered. Serum tissue transglutaminas e IgA antibody assay (units/volume)Ordered By: Orlin Fletcher on 01-25-2023 tTG IgA Qn (S) <2 U/mL 0-3 [facility] Comment on above: Negative 0 - 3 Weak Positive 4 - 10 Positive >10 Tissue Transglutaminase (tTG) has been identified as the endomysial antigen. Studies have demonstr- ated that endomysial IgA antibodies have over 99% specificity for gluten sensitive enteropathy. Jatinder 09-09-2021 [facility] Telephone (AGCARDPOB ) -- ROBI OLIVARES ([id number]) 1950 F Date Time Provider Department 09/09/21 ISABELA DUPREE During your visit today, we recorded the following information about you: Zhanna Villasenor LPN 09/09/2021 2:00 PM Signed ----- Message from Isabela Dupree APRN.INSTRUMENTATION TECH sent at 09/09/2021 2:00 PM EDT ----- Please call the patient and report echo results revealed preserved LV Function 69% and stable mild LVH. Patient has mild MR. Recommend continue current medical therapy. Thanks, Isabela Dupree APRN.DEVIN Villasenor LPN 09/09/2021 2:02 PM Signed Left message for to call [facility] for test results. [facility] phone number provided. 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 Normal [facility] Jatinder 08-31-2021 CNPN Telephone (AGCDOYLEPOB ) -- ROBI OLIVARES ([id number]) 1950 F Date Time Provider Department 08/31/21 [...] and did not know her BP results. [facility] pt will call back when available. Katrin [...] unspecified [L08. (more content not included)... Normal [facility] Final Surgical Pathology Rep the medical center 11-04-2020 Final Surgical Pathology Report . Pathology Reports Accession: Collected Date/Time: Received Date/Time: Pathologist: [id number] 11/02/2020 09:55 EDT 11/03/2020 14:58 EDT MD JOE WRIGHT Final Surgical Pathology Report DIAGNOSIS: A) CECUM, POLYPECTOMY - - TUBULAR ADENOMA. B) RECTUM, POLYPECTOMY - - TUBULAR ADENOMA. COMMENT: [facility] [id number] CLINICAL INFORMATION: Procedure: COLONOSCOPY WITH ARGON PLASMA [...] Electronically Signed by Pathology Report verified by [facility] Electronically signed by JOE WRIGHT MD Sign out Date: 11/04/2020 14:30 Performing Lab: [facility], [address] [place] [address] ([place]) Comment on above: Performed By: #### S PFR #### [place] [address] Surgical Tissue Examon 03-19 Surgical Tissue Exam Test performed at [place] [address] NAME: ROBI OLIVARES REQUESTING: SELENE RATLIFF MD [...] 16:53 PRINTED: 04/07/2020 Page 1 of 1 [facility] Comment on above: Performed By: #### S URG #### [place] [address] Coronavirus 2019on 0 COVID 19 Result 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 This test was developed and its performance characteristics determined by [facility]'s [facility]sten [facility] Pathology and [facility] [place]. This test has been authorized by FDA under an Emergency Use Authorization (EUA). This test has been validated in accordance with the FDA's Guidance Document Policy for Diagnostics Testing in Laboratories Certified to Perform High Complexity Testing under CLIA prior to Emergency use Authorization for Coronavirus Disease 2019 during the Public Health Emergency issued on August 17, 2019. Performing Laboratory: [facility] [address] [place] [address] Performed By: #### C D19X #### [place] [address] ALLIED HEALTHon 11-23-2017 ALLIED HEALTH HNO ID: [id number] thor: Esequiel (Rt) Janine Mandel: (none)Author Type: TechnicianType: Allied HealthFiled: 11/23/2017 5:13 PMNote Text: Radiology Service Progress NotePATIENT NAME: Robi OlivaresMRN: [id number] OF SERVICE: November 23, 2017TIME: 5:13 PMPATIENT IDENTITY VERIFICATION COMPLETED USING TWO (2) METHODS: Patientconfirmed name verbally and ID band matches..PATIENT GENDER DATA: Female. status: : NoBreastfeeding status: NO.PATIENT RELEVANT IMPLANT DATA REVIEWED: Not ApplicableRADIOLOGY DEPARTMENT: General X-ray: Exam(s) Completed: Spine X-Ray(s):Lumbar AP / LAT / [id number] IV DATA: Not applicableSIGNED BY: Savita Donato 2017 5:13 PM [facility] XR LUMBAR 2V AP/LATon 2017 XR [...] as evidence of atherosclerosis without significant interval change.Golf Sales Manager: MARLYN Transcribe Date/Time: Nov 23 2017 6:01PDictated by : SUE TAVERA MDThitonya examination was interpreted and the report reviewed and electronically signed by: SUE TAVERA MD on Nov 23 2017 6:02PM [id number] Normal [facility] Office Visit: Pat 03-20-20 Fall risk assessment No Invalid Interpretation Code [employer] Work Phone: [phone] Protein mass conc Done Invalid Interpretation Code [employer] Work Phone: [phone] Replaced Document: Akilah Kaur Observationson 08-30-2016 EKG QRS axis 4 deg Invalid Interpretation Code [employer] Work Phone: [phone] Interpretation Sinus Bradycardia WI THIN NORMAL LIMITS Invalid Interpretation Code [employer] Work Phone: [phone] P Banner -27 deg Invalid Interpretation Code [employer] Work Phone: [phone] NH Interval 140 ms Invalid Interpretation Code [employer] Work Phone: [phone] QRS Duration 96 ms Invalid Interpretation Code [employer] Work Phone: [phone] QT Interval new path ms Invalid Interpretation Code [employer] Work Phone: [phone] QTc [place] 458 ms Invalid Interpretation Code [employer] Work Phone: [phone] T Banner 27 deg Invalid Interpretation Code [employer] Work Phone: [phone] Clinical Lists Update: Pre08-26-2016 Left ventricular Ejection fraction 65 % Invalid Interpretation Code [employer] Work Phone: [phone] Clinical Lists 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: 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 Calcium mass conc 9.5 mg/dL Invalid Interpretation Code [employer] Work Phone: [phone] Chloride molar conc 104 mmol/L Invalid Interpretation Code [employer] Work Phone: [phone] CO2 ppres (BldV) 27.0 mmol/L Invalid Interpretation Code [employer] Work Phone: [phone] Creatinine mass conc 1.02 mg/dL Invalid Interpretation Code [employer] Work Phone: [phone] Glucose mass conc 96 mg/dL Invalid Interpretation Code [employer] Work Phone: [phone] Hematocrit Auto Volume Fraction (Bld) 38.2 % Invalid Interpretation Code [employer] Work Phone: [phone] Hemoglobin mass conc (Bld) 12.8 g/dL Invalid Interpretation Code [employer] Work Phone: [phone] Platelets Auto #/vol (Bld) 162 10*3/mm3 Invalid Interpretation Code [employer] Work Phone: [phone] Potassium molar conc 3.5 mmol/L Invalid Interpretation Code [employer] Work Phone: [phone] Sodium molar conc 137 mmol/L Invalid Interpretation Code [employer] Work Phone: [phone] Thyrotropin Qn 2.83 u[iU]/mL Invalid Interpretation Code [employer] Work Phone: [phone] Urea nitrogen mass conc 15 mg/dL Invalid Interpretation Code [employer] Work Phone: [phone] Urea nitrogen/Creatinine mass ratio 14.7 mg/mg Invalid Interpretation Code [employer] Work Phone: [phone] WBC Auto #/vol (Bld) 8.7 10*3/uL Invalid Interpretation Code [employer] Work Phone: [phone]) Lab Report: Lipid Profileon 08-17-2015 Cholesterol in HDL mass conc 45 mg/dL Invalid Interpretation Code [employer] Work Phone: [phone] Cholesterol in LDL mass conc 95 mg/dL Invalid Interpretation Code 0-130 [employer] Work Phone: [phone] Cholesterol mass conc 161 mg/dL Invalid Interpretation Code 200 [employer] Work Phone: [phone] Lipoprotein.pre-beta mass conc 21 mg/dL Invalid Interpretation Code 5-40 [employer] Work Phone: [phone] Triglyceride mass conc 103 mg/dL Invalid Interpretation Code [facility] Work Phone: [phone]) Lab Report: Liver Profileon 08-17-2015 Albumin mass conc 3.6 g/dL Invalid Interpretation Code 3.4-5.0 [facility] Work Phone: [phone] ALP enzyme act/vol (Bld) 99 U/L Invalid Interpretation Code 50-136 [employer] Work Phone: [phone] ALT enzyme act/vol 21 U/L Invalid Interpretation Code 12-78 [facility] Work Phone: [phone] AST enzyme act/vol 21 U/L Invalid Interpretation Code 15-37 [employer] Work Phone: [phone] Bilirubin mass conc 0.30 mg/dL Invalid Interpretation Code 0.20-1.00 [employer] Work Phone: [phone] Bilirubin.direct mass conc 0.11 mg/dL Invalid Interpretation Code 0.00-0.30 [employer] Work Phone: [phone] Globulin Calculated mass conc (S) 3.8 g/dL High 2.3-3.5 [employer] Work Phone: [phone] Protein mass conc 7.4 g/dL Invalid Interpretation Code 6.4-8.2 [employer] Work Phone: [phone] Office Visit: [facility] 08-11-19 16 Tobacco smoking status GAIS Former smoker Invalid Interpretation Code [employer] Work Phone: [phone] Office Visit: [facility] 06-30-19 15 cardiac risk group C Invalid Interpretation Code [employer] Work Phone: [phone] General cardiovascular disease 10Y risk [#] [place]D'Agost[place] N/A Invalid Interpretation Code [facility] [facility] Work Phone: [phone] Tobacco smoking status NHIS Never Invalid Interpretation Code [facility] Work Phone: [phone] Lab Report: BMPon 01-15-2014 Anion gap 4 molar conc 8 Normal 5-15 [place] [facility] [employer] Work Phone: [phone] GFR/1.73 sq M predicted among non-blacks MDRD vol rate/area (S/P/Bld) 53 mL/min/{1.73_m2} Low >60 [facility] Work Phone: [phone] GFRAA 64 mL/min Normal >60 [facility] Work Phone: [phone] Lab Report: Ordered by Dr. Brandon romeo 05-29-2013 Erythrocyte distribution width Auto Ratio (RBC) 14.6 % Invalid Interpretation Code [facility] Work Phone: [phone] MCH Auto Entitic mass (RBC) 28.3 pg Invalid Interpretation Code [facility] Work Phone: [phone] MCHC Auto mass conc (RBC) 34.6 % Invalid Interpretation Code [facility] Work Phone: [phone] MCV Auto Entitic volume (RBC) 81.7 fL Invalid Interpretation Code [facility] Work Phone: [phone] Platelet mean volume Joaquín-Tessa Entitic volume (Bld) 9.8 fL Invalid Interpretation Code [facility] Work Phone: [phone] RBC Auto #/vol (Bld) 4.70 10*6/uL Invalid Interpretation Code [facility] Work Phone: [phone] Lab Report: PTon 07-23-2012 INR Coag RelTime (PPP) 1.1 {INR} Normal [facility] Work Phone: [phone] PTP 13.9 SECONDS Normal 11.9-14.4 [facility] Work Phone: [phone] Lab Report: PTTon 07-23-2012 aPTT Coag time (Bld) 37.1 s High 24.1-36.[address] [facility] [address] [facility] Work Phone: [phone] 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 Ferritin mass conc 16.2 ng/mL Low [facility] Work Phone: [phone] Iron binding capacity mass conc 419 ug/dL High [facility] Work Phone: [phone] Iron mass conc 22 ug/dL Low [facility] Work Phone: [phone] Transferrin saturation in Serum or Plasma 5 % Low [facility] Work Phone: [phone] Office Visiton 04-11-2012 T4 mass conc 9.3 ug/dL Invalid Interpretation Code [employer] Work Phone: [phone] 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 10-05-2011 Cholesterol.total/Chol esterol in HDL mass ratio 5.5 {ratio} High [place] [employer] Work Phone: [phone] Vital Signs Date Time Vital Sign Value Performing Clinician Facility 12-03-2024 13:20-0400 Diastolic blood pressure 91 mm[Hg] Vlad Pyle MICROBIOLOGY DIRECTOR.SEISMOMETER OPERATOR Work Phone: [facility] 12-03-2024 13:20-0400 Heart rate 77 /min Vlad Pyle MICROBIOLOGY DIRECTOR.SEISMOMETER OPERATOR Work Phone: [facility] 12-03-2024 13:20-0400 Systolic blood pressure 179 mm[Hg] Vlad Pyle MICROBIOLOGY DIRECTOR.SEISMOMETER OPERATOR Work Phone: [facility] 12-03-2024 13:19-0400 Body mass index (BMI) [Ratio] 15.86 kg/m2 Vlad Pyle MICROBIOLOGY DIRECTOR.SEISMOMETER OPERATOR Work Phone: [facility] 12-03-2024 13:19-0400 Body weight 41.1 kg Vlad Pyle MICROBIOLOGY DIRECTOR.SEISMOMETER OPERATOR Work Phone: [facility] 12-03-2024 13:19-0400 Respiratory rate 16 /min Vlad Pyle MICROBIOLOGY DIRECTOR.SEISMOMETER OPERATOR Work Phone: [facility] 11-05-2024 16:02-0400 Body mass index (BMI) [Ratio] 16.4 kg/m2 Jose Hyde MD Work Phone: [facility] 11-05-2024 16:02-0400 Body weight 42.5 kg Jose Hyde MD Work Phone: [facility] 11-05-2024 16:02-0400 Diastolic blood pressure 74 mm[Hg] Jose Hyde MD Work Phone: [facility] 11-05-2024 16:02-0400 Heart rate 80 /min Jose Hyde MD Work Phone: [facility] 11-05-2024 16:02-0400 Respiratory rate 18 /min Jose Hyde MD Work Phone: [facility] 11-05-2024 16:02-0400 Systolic blood pressure 134 mm[Hg] Jose Hyde MD Work Phone: [facility] 10-24-2024 14:13-0400 Body temperature 97.5 [degF] Dr. Jose Hyde MD Work Phone: [facility] 10-24-2024 14:13-0400 Diastolic blood pressure 80 mm[Hg] Dr. Jose Hyde MD Work Phone: 0(938)638-920555 [place] [address] 10-24-2024 14:13-0400 Heart rate 76 /min Dr. Jose Hyde MD Work Phone: 8(587)363-644355 [place] [address] 10-24-2024 14:13-0400 Respiratory rate 16 /min Dr. Jose Hyde MD Work Phone: 5(680)008-927044 [place] [address] 10-24-2024 14:13-0400 SaO2% (BldA) [Mass fraction] 98 % Dr. Jose Hyde MD Work Phone: 6(435)932-162555 [place] [address] 10-24-2024 14:13-0400 Systolic blood pressure 119 mm[Hg] Dr. Jose Hyde MD Work Phone: 1(146)396-947655 [place] [address] 10-24-2024 06:00-0400 Body mass index (BMI) [Ratio] 14.6 kg/m2 Dr. Jose Hyde MD Work Phone: [facility] 10-24-2024 06:00-0400 Body weight 37.[address] Jose Hyde MD Work Phone: 8(000)563-938655 [place] [address] 10-23-2024 13:57-0400 Body height 160.[address] Jose Hyde MD Work Phone: 9(701)152-860755 [place] [address] 10-15-2024 19:24-0400 Body temperature 98.1 [degF] Dr. Jose Hyde MD Work Phone: 9(365)324-838255 [place] [address] 10-15-2024 19:24-0400 Diastolic blood pressure 89 mm[Hg] Dr. Jsoe Hyde MD Work Phone: 4(908)565-665255 [place] [address] 10-15-2024 19:24-0400 Heart rate 85 /min Dr. Jose Hyde MD Work Phone: 0(196)052-454655 [place] [address] 10-15-2024 19:24-0400 Respiratory rate 16 /min Dr. Jose Hyde MD Work Phone: 9(795)243-488055 [place] [address] 10-15-2024 19:24-0400 SaO2% (BldA) [Mass fraction] 98 % Dr. Jose Hyde MD Work Phone: 4(891)743-570555 [place] [address] 10-15-2024 19:24-0400 Systolic blood pressure 154 mm[Hg] Dr. Jose Hyde MD Work Phone: 4(235)340-024355 [place] [address] 10-15-2024 16:54-0400 Body temperature 97.7 [degF] Dr. Jose Hyde MD Work Phone: 5(800)491-035655 [place] [address] 10-15-2024 16:54-0400 Diastolic blood pressure 73 mm[Hg] Dr. Jose Hyde MD Work Phone: 4(765)477-460255 [place] [address] 10-15-2024 16:54-0400 Heart rate 76 /min Dr. Jose Hyde MD Work Phone: 8(482)889-126955 [place] [address] 10-15-2024 16:54-0400 Respiratory rate 16 /min Dr. Jose Hyde MD Work Phone: 4(256)911-963255 [place] [address] 10-15-2024 16:54-0400 SaO2% (BldA) [Mass fraction] 98 % Dr. Jose Hyde MD Work Phone: 5(835)684-436855 [place] [address] 10-15-2024 16:54-0400 Systolic blood pressure 131 mm[Hg] Dr. Jose Hyde MD Work Phone: 8(304)617-906455 [place] [address] 10-15-2024 13:40-0400 Body mass index (BMI) [Ratio] 14.6 kg/m2 Dr. Jose Hyde MD Work Phone: [facility] 10-15-2024 13:40-0400 Body weight 38.[address] Jose Hyde MD Work Phone: [facility] 08-15-2024 13:30-0500 Body mass index (BMI) [Ratio] 16.59 kg/m2 Vlad Pyle MICROBIOLOGY DIRECTOR.SEISMOMETER OPERATOR Work Phone: [facility] 08-15-2024 13:30-0500 Body weight 43 kg Vlad Pyle MICROBIOLOGY DIRECTOR.SEISMOMETER OPERATOR Work Phone: [facility] 08-15-2024 13:30-0500 Diastolic blood pressure 69 mm[Hg] Vlad Pyle MICROBIOLOGY DIRECTOR.SEISMOMETER OPERATOR Work Phone: [facility] 08-15-2024 13:30-0500 Heart rate 70 /min Vlad Pyle MICROBIOLOGY DIRECTOR.SEISMOMETER OPERATOR Work Phone: [facility] 08-15-2024 13:30-0500 Respiratory rate 16 /min Vlad Pyle MICROBIOLOGY DIRECTOR.SEISMOMETER OPERATOR Work Phone: [facility] 08-15-2024 13:30-0500 Systolic blood pressure 113 mm[Hg] Vlad Pyle MICROBIOLOGY DIRECTOR.SEISMOMETER OPERATOR Work Phone: [facility] 06-05-2024 08:34-0500 Body height 161 cm Mehdi Rick MD Work Phone: [facility] 06-05-2024 08:34-0500 Body mass index (BMI) [Ratio] 16.62 kg/m2 Mehdi Rick MD Work Phone: [facility] 06-05-2024 08:34-0500 Body weight 43.09 kg Mehdi Rick MD Work Phone: [facility] 06-05-2024 08:34-0500 Diastolic blood pressure 80 mm[Hg] Mehdi Rick MD Work Phone: [facility] 06-05-2024 08:34-0500 Heart rate 68 /min Mehdi Rick MD Work Phone: [facility] 06-05-2024 08:34-0500 Respiratory rate 16 /min Mehdi Rick MD Work Phone: [facility] 06-05-2024 08:34-0500 Systolic blood pressure 122 mm[Hg] Mehdi Rick MD Work Phone: [facility] 05-22-2024 17:51-0500 Body mass index (BMI) [Ratio] 16.57 kg/m2 Marilyn Athy PA-C Work Phone: [facility] 05-22-2024 17:51-0500 Body temperature 97.59 [degF] Marilyn Athy PA-C Work Phone: [facility] 05-22-2024 17:51-0500 Body weight 43.8 kg Marilyn Athy PA-C Work Phone: [facility] 05-22-2024 17:51-0500 Diastolic blood pressure 70 mm[Hg] Marilyn Athy PA-C Work Phone: [facility] 05-22-2024 17:51-0500 Heart rate 70 /min Marilyn Athy PA-C Work Phone: [facility] 05-22-2024 17:51-0500 Respiratory rate 16 /min Marilyn Athy PA-C Work Phone: [facility] 05-22-2024 17:51-0500 SaO2% (BldA) [Mass fraction] 96 % Marilyn Athy PA-C Work Phone: [facility] 05-22-2024 17:51-0500 Systolic blood pressure 102 mm[Hg] Marilyn Athy PA-C Work Phone: [facility] 05-13-2024 10:53-0500 Body mass index (BMI) [Ratio] 16.61 kg/m2 Jose Hyde MD Work Phone: [facility] 05-13-2024 10:53-0500 Body weight 43.9 kg Jose Hyde MD Work Phone: [facility] 05-13-2024 10:53-0500 Diastolic blood pressure 78 mm[Hg] Jose Hyde MD Work Phone: [facility] 05-13-2024 10:53-0500 Heart rate 64 /min Jose Hyde MD Work Phone: [facility] 05-13-2024 10:53-0500 Respiratory rate 16 /min Jose Hyde MD Work Phone: [facility] 05-13-2024 10:53-0500 SaO2% (BldA) [Mass fraction] 97 % Jose Hyde MD Work Phone: [facility] 05-13-2024 10:53-0500 Systolic blood pressure 132 mm[Hg] Jose Hyde MD Work Phone: [facility] 04-29-2024 07:11-0500 Diastolic blood pressure 74 mm[Hg] Vlad Pyle MICROBIOLOGY DIRECTOR.SEISMOMETER OPERATOR Work Phone: [facility] 04-29-2024 07:11-0500 Heart rate 81 /min Vlad Pyle MICROBIOLOGY DIRECTOR.SEISMOMETER OPERATOR Work Phone: [facility] 04-29-2024 07:11-0500 Systolic blood pressure 135 mm[Hg] Vlad Pyle MICROBIOLOGY DIRECTOR.SEISMOMETER OPERATOR Work Phone: [facility] 04-29-2024 07:08-0500 Body mass index (BMI) [Ratio] 16.88 kg/m2 Vlad Pyle MICROBIOLOGY DIRECTOR.SEISMOMETER OPERATOR Work Phone: [facility] 04-29-2024 07:08-0500 Body weight 44.6 kg Vlad Pyle MICROBIOLOGY DIRECTOR.SEISMOMETER OPERATOR Work Phone: [facility] 04-29-2024 07:08-0500 Respiratory rate 16 /min Vlad Pyle MICROBIOLOGY DIRECTOR.SEISMOMETER OPERATOR Work Phone: [facility] 10-16-2023 14:19-0400 Body mass index (BMI) [Ratio] 16.65 kg/m2 Romina Chao MICROBIOLOGY DIRECTOR.INSTRUMENTATION TECH Work Phone: [facility] 10-16-2023 14:19-0400 Body weight 44 kg Romina Jeremie MICROBIOLOGY DIRECTOR.INSTRUMENTATION TECH Work Phone: [facility] 10-16-2023 14:19-0400 Diastolic blood pressure 70 mm[Hg] Romina Jeremie MICROBIOLOGY DIRECTOR.INSTRUMENTATION TECH Work Phone: [facility] 10-16-2023 14:19-0400 Heart rate 70 /min Romina Jeremie MICROBIOLOGY DIRECTOR.INSTRUMENTATION TECH Work Phone: [facility] 10-16-2023 14:19-0400 SaO2% (BldA) [Mass fraction] 96 % Romina Jeremie MICROBIOLOGY DIRECTOR.INSTRUMENTATION TECH Work Phone: [facility] 10-16-2023 14:19-0400 Systolic blood pressure 130 mm[Hg] Romina Jeremie MICROBIOLOGY DIRECTOR.INSTRUMENTATION TECH Work Phone: [facility] 05-01-2023 13:47-0500 Body temperature 96.3 [degF] Romina Jeremie MICROBIOLOGY DIRECTOR.INSTRUMENTATION TECH Work Phone: [facility] 05-01-2023 13:47-0500 Body weight 44.63 kg Romina Jeremie MICROBIOLOGY DIRECTOR.INSTRUMENTATION TECH Work Phone: [facility] 05-01-2023 13:47-0500 Diastolic blood pressure 70 mm[Hg] Romina Jeremie MICROBIOLOGY DIRECTOR.INSTRUMENTATION TECH Work Phone: [facility] 05-01-2023 13:47-0500 Heart rate 53 /min Romina Jeremie MICROBIOLOGY DIRECTOR.INSTRUMENTATION TECH Work Phone: [facility] 05-01-2023 13:47-0500 Respiratory rate 18 /min Romina Jeremie MICROBIOLOGY DIRECTOR.INSTRUMENTATION TECH Work Phone: [facility] 05-01-2023 13:47-0500 SaO2% (BldA) [Mass fraction] 97 % Romina Jeremie MICROBIOLOGY DIRECTOR.INSTRUMENTATION TECH Work Phone: [facility] 05-01-2023 13:47-0500 Systolic blood pressure 116 mm[Hg] Romina Jeremie MICROBIOLOGY DIRECTOR.INSTRUMENTATION TECH Work Phone: [facility] 03-28-2023 13:32-0400 Body temperature 98.4 [degF] Jose Hyde MD Work Phone: [facility] 03-28-2023 13:32-0400 Body weight 46.27 kg Jose Hyde MD Work Phone: [facility] 03-28-2023 13:32-0400 Diastolic blood pressure 66 mm[Hg] Jose Hyde MD Work Phone: [facility] 03-28-2023 13:32-0400 Heart rate 52 /min Jose Hyde MD Work Phone: [facility] 03-28-2023 13:32-0400 Respiratory rate 18 /min Jose Hyde MD Work Phone: [facility] 03-28-2023 13:32-0400 SaO2% (BldA) [Mass fraction] 96 % Jose Hyde MD Work Phone: [facility] 03-28-2023 13:32-0400 Systolic blood pressure 116 mm[Hg] Jose Hyde MD Work Phone: [facility] 01-25-2023 16:15-0400 Body height 162.56 cm [facility] 08-22-2022 15:14-0500 Body weight 51.26 kg Zhanna Tracy APRN.INSTRUMENTATION TECH Work Phone: [facility] 08-22-2022 15:14-0500 Diastolic blood pressure 68 mm[Hg] Zhanna Tracy APRN.INSTRUMENTATION TECH Work Phone: [facility] 08-22-2022 15:14-0500 Heart rate 65 /min Zhanna Tracy APRN.INSTRUMENTATION TECH Work Phone: [facility] 08-22-2022 15:14-0500 Respiratory rate 18 /min Zhanna Tracy APRN.INSTRUMENTATION TECH Work Phone: [facility] 08-22-2022 15:14-0500 SaO2% (BldA) [Mass fraction] 97 % Zhanna Tracy APRN.INSTRUMENTATION TECH Work Phone: [facility] 08-22-2022 15:14-0500 Systolic blood pressure 118 mm[Hg] Zhanna Olga MICROBIOLOGY DIRECTOR.INSTRUMENTATION TECH Work Phone: [facility] 06-29-2022 17:36-0500 Body temperature 96.8 [degF] Jose Hyde MD Work Phone: [facility] 06-29-2022 17:36-0500 Body weight 52.16 kg Jose Hyde MD Work Phone: [facility] 06-29-2022 17:36-0500 Diastolic blood pressure 74 mm[Hg] Jose Hyde MD Work Phone: [facility] 06-29-2022 17:36-0500 Heart rate 65 /min Jose Hyde MD Work Phone: [facility] 06-29-2022 17:36-0500 Respiratory rate 18 /min Jose Hyde MD Work Phone: [facility] 06-29-2022 17:36-0500 SaO2% (BldA) [Mass fraction] 95 % Jose Hyde MD Work Phone: [facility] 06-29-2022 17:36-0500 Systolic blood pressure 128 mm[Hg] Jose Hyde MD Work Phone: [facility] 01-31-2022 15:14-0400 Body weight 56.25 kg Zhanna Tracy MICROBIOLOGY DIRECTOR.INSTRUMENTATION TECH Work Phone: [facility] 01-31-2022 15:14-0400 Diastolic blood pressure 72 mm[Hg] Zhanna Olga MICROBIOLOGY DIRECTOR.INSTRUMENTATION TECH Work Phone: [facility] 01-31-2022 15:14-0400 Heart rate 70 /min Zhanna Olga MICROBIOLOGY DIRECTOR.INSTRUMENTATION TECH Work Phone: [facility] 01-31-2022 15:14-0400 Systolic blood pressure 138 mm[Hg] Zhanna Olga MICROBIOLOGY DIRECTOR.INSTRUMENTATION TECH Work Phone: [facility] 03-20-2017 08:04-0400 BMI (Body Mass [...] Vlad Pyle APRN.CNS Work Phone: [facility] Comment on above: Chronic diarrhea (Pr imary Dx); Irritable bowel syndrome without diarrhea; Biliary stricture (HCC) Start: 12-03-2024 End: 12-03-2024 [facility] Facility:[facility] Start: 11-12-2024 End: 11-12-2024 [facility] Facility:[facility] Start: 11-05-2024 End: 11-05-2024 Office outpatient visit 40 minutes Jose Hyde MD Work Phone: [facility] Comment on above: Persistent depressiv e disorder (Primary Dx); Anxiety; History of bipolar disorder; Chronic diarrhea; Weight loss, unintentional; Generalized pain; Marital stress Start: 11-05-2024 End: 11-05-2024 [facility] JOSE HYDE Facility:[facility] Start: 10-24-2024 Non-patient / Non-visit Dr. Monico Patterson MD -[facility] Work Phone: Start: 10-23-2024 Non-patient / Non-visit Dr. Monico Patterson MD -[facility] Work Phone: Start: 10-22-2024 End: 10-22-2024 ambulatory Mango Cornejo [facility] Start: 10-22-2024 Non-patient / Non-visit [facility] Start: 10-22-2024 Non-patient / Non-visit Dr. Monico Patterson MD [facility] Work Phone: Start: 10-21-2024 ambulatory [...] End: 10-15-2024 Patient encounter procedure Kee Trimble MICROBIOLOGY DIRECTOR.INSTRUMENTATION TECH Work Phone: [facility] Comment on above: Procedure not radha d out (Primary Dx) Start: 10-15-2024 End: 10-15-2024 ambulatory JOSE HYDE Facility:[facility] Start: 08-26-2024 End: 08-26-2024 Telephone encounter Jose Hyde MD Work Phone: [facility] Comment on above: Forms Start: 08-15-2024 End: 08-15-2024 ambulatory [facility] Facility:[facility] Start: 08-15-2024 End: 08-15-2024 Office outpatient visit 25 minutes Vlad Pyle MICROBIOLOGY DIRECTOR.SEISMOMETER OPERATOR Work Phone: [facility] Comment on above: Memory impairment (P rimary Dx); History of bipolar disorder; Persistent depressive disorder; Essential hypertension; Mixed hyperlipidemia; Acquired hypothyroidism; CAD (coronary artery disease), [place] coronary artery; Recurrent cold sores; Rash and nonspecific skin eruption Start: 08-07-2024 End: 08-09-2024 Telephone encounter Jose Hyde MD Work Phone: [facility] Comment on above: Forms Start: 07-18-2024 End: 07-19-2024 Refill Jose Hyde MD Work Phone: [facility] Comment on above: Refill Request Start: 06-05-2024 End: 06-05-2024 ambulatory MEHDI RICK Facility:[facility] Start: 06-05-2024 End: 06-05-2024 [facility] Start: 06-05-2024 End: 06-05-2024 Patient encounter procedure Mehdi Rick MD Work Phone: [facility] Comment on above: Bipolar depression ( HCC) (Primary Dx); Memory deficit; Cognitive impairment, mild, so stated; Weight loss Start: 05-22-2024 End: 05-22-2024 ambulatory JOSE HYDE Facility:[facility] Start: 05-22-2024 End: 05-22-2024 Patient encounter procedure Marilyn Arechiga PA-C Work Phone: [facility] Comment on above: COVID-19 (Primary Dx ) Start: 05-22-2024 End: 05-22-2024 Telephone encounter Jose Hyde MD Work Phone: [facility] Comment on above: Future Appointment Start: 05-13-2024 End: 05-13-2024 Subsequent hospital visit by physician Screen Mammo [facility] Comment on above: Encounter for screen ing mammogram for breast cancer [Z12.31] Start: 05-13-2024 End: 05-13-2024 ambulatory [facility] Facility:[facility] Start: 05-13-2024 End: 05-13-2024 Office outpatient visit 25 minutes Jose Hyde MD Work Phone: [facility] Comment on above: Anxiety reaction (Pr imary Dx); Hx of blurred vision; Memory impairment; Vitamin D deficiency; IFG (impaired fasting glucose); Encounter for long-term current use of medication; Mixed hyperlipidemia; Essential hypertension; Acquired hypothyroidism; Coronary artery disease involving [place] coronary artery of [place] heart without angina pectoris; Anxiety; Weight loss; Hypokalemia; Persistent depressive disorder; 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; Bipolar disorder, current episode depressed, mild or moderate severity, unspecified (HCC) Start: 04-29-2024 End: 04-29-2024 Telephone encounter Jose Hyde MD Work Phone: [address] [place] [address] Start: 04-29-2024 End: 04-29-2024 ambulatory [facility] Facility:[facility] Start: 04-29-2024 End: 04-29-2024 Office outpatient visit 25 minutes Vlad Edenilson PIERRESEISMOMETER OPERATOR Work Phone: [facility] Comment on above: Memory deficit (Prim marc Dx); Persistent depressive disorder; History of bipolar disorder; Essential hypertension; Encounter for screening mammogram for breast cancer; Encounter for immunization Start: 04-07-2024 End: 04-08-2024 Emergency department patient visit Jose Hyde Facility:[facility] Start: 03-19-2024 End: 03-20-2024 Refill Jose Hyde MD Work Phone: [facility] Comment on above: Refill Request Start: 03-13-2024 End: 03-13-2024 Telephone encounter Jose Hyde MD Work Phone: [facility] Comment on above: Forms ([facility] Compliant Physician Authorization form) Start: 01-18-2024 Refill Jose castaneda MD Work Phone: [facility] Comment on above: Refill Request Start: 01-15-2024 Telephone encounter Jose ang MD Work Phone: [facility] Comment on above: Forms Start: 01-10-2024 Telephone encounter Jose ang MD Work Phone: [facility] Comment on above: DME Co requesting pt information Start: 12-20-2023 Refill Jose castaneda MD Work Phone: [facility] Comment on above: Refill Request Start: 11-24-2023 Refill Jose castaneda MD Work Phone: [facility] Comment on above: Refill Request Start: 10-17-2023 Telephone encounter Romina palmer APRN.CNP Work Phone: [facility] Comment on above: Results Start: 10-16-2023 End: 10-16-2023 Patient encounter procedure Romina Chao APRN.INSTRUMENTATION TECH Work Phone: [facility] Comment on above: Chronic diastolic CH F [...] Jose castaneda MD Work Phone: [facility] Comment on above: Refill Request Start: 08-17-2023 Refill Joes castaneda MD Work Phone: [facility] Comment on above: Refill Request Start: 05-01-2023 Documentation procedure Mammog fco Coordinator [facility] Start: 05-01-2023 Letter encounter Mammography Coordinator [facility] Department Start: 05-01-2023 End: 05-01-2023 Patient encounter procedure Romina Chao MICROBIOLOGY DIRECTOR.INSTRUMENTATION TECH Work Phone: [facility] Comment on above: Weight loss (Primary Dx); Anxiety; Stress at home Start: 04-28-2023 End: 04-28-2023 Subsequent hospital visit by physician Screen Mammo [facility] Comment on above: Encounter for screen ing mammogram for breast cancer [Z12.31] Start: 04-18-2023 Telephone encounter Jose ang MD Work Phone: [facility] Comment on above: Mammogram Order Start: 03-28-2023 End: 03-28-2023 Office outpatient visit 40 minutes Jose Hyde MD Work Phone: [facility] Comment on above: Essential hypertensi on (Primary Dx); Vitamin D deficiency; Elevated fasting glucose; Mixed hyperlipidemia; Acquired hypothyroidism; Bipolar affective disorder, remission status unspecified (HCC) Start: 01-25-2023 End: 01-25-2023 Patient encounter procedure [facility] Work Phone: Start: 01-25-2023 End: 01-25-2023 Refill Vlad Pyle APRN.SEISMOMETER OPERATOR Work Phone: [facility] Comment on above: Refill Request Start: 12-22-2022 Telephone encounter Kee Coburn MD Work Phone: [facility] Comment on above: Appointment ([facility]) Start: 10-11-2022 Telephone encounter Zhanna Tracy APRN.INSTRUMENTATION TECH Work Phone: Cardiology Comment on above: Results Start: 10-10-2022 End: 10-10-2022 Nursing evaluation of patient and report Nurse Card Admin [facility] Work Phone: Cardiology Comment on above: Screening for ischem ic heart disease (Primary Dx) Start: 09-19-2022 Refill Jose castaneda MD Work Phone: [facility] [place] Comment on above: Refill Request Start: 08-25-2022 Refill Jose castaneda MD Work Phone: [facility] Comment on above: Refill Request Start: 08-22-2022 End: 08-22-2022 Patient encounter procedure Zhanna Tracy APRN.INSTRUMENTATION TECH Work Phone: Cardiology Comment on above: 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) (Primary Dx); Coronary artery disease involving [place] coronary artery of [place] heart without angina pectoris; Mixed hyperlipidemia; Essential hypertension; Chronic diastolic CHF (congestive heart failure) (HCC); PAD (peripheral artery disease) (HCC); Tobacco use Start: 07-26-2022 Refill Jose castaneda MD Work Phone: [facility] Comment on above: Insurance Authorizat ion Start: 06-29-2022 End: 06-29-2022 Office outpatient visit 25 minutes Jose Hyde MD Work Phone: [facility] [place] Comment on above: Coronary artery dise ase involving [place] coronary artery of [place] heart without angina pectoris; Recurrent cold sores; Loose stools; Diarrhea; IRRITABLE COLON Start: 05-20-2022 Refill Jose castaneda MD Work Phone: [facility] [place] Comment on above: Refill Request Start: 04-14-2022 Documentation procedure Mammog fco Coordinator [facility] Start: 04-14-2022 Letter encounter Mammography Coordinator [facility] Department Start: 03-30-2022 ambulatory Jose castaneda MD Work Phone: [facility] [place] Start: 02-15-2022 Refill Jose castaneda MD Work Phone: [facility] [place] Comment on above: Refill Request Start: 01-31-2022 End: 01-31-2022 Patient encounter procedure Zhanna Tracy ALEJANDRA.INSTRUMENTATION TECH Work Phone: Cardiology Comment on above: Coronary artery dise ase involving [place] coronary artery of [place] heart without angina pectoris (Primary Dx); Mixed [...] Subsequent hospital visit by physician Ct Prep [facility] Cat Scan Comment on above: Abdominal mass, unsp ecified abdominal location [R19.00] Start: 09-24-2021 Refill Jose castaneda MD Work Phone: [facility] [place] Comment on above: Refill Request Start: 09-09-2021 Telephone encounter Isabela Dupree APRN.INSTRUMENTATION TECH Work Phone: [facility] Cardiology [place] Comment on above: Results Start: 11-23-2017 Ambulatory STANISLAW WILSON) Domenic CASSIE [facility] Procedures Date Procedure Procedure Detail Performing [...] reported as: Test not performed Start: 10-22-2024 FLEXOGRAPHIC PRESS OPERATOR antibody measurement Dr. Jose ascencio MD Work Phone: Comment on above: Previous reported result: TNP AIEdited b y: INFCE on 10/24/24:0908 AMENDED REPORT 10/24/24 09 FLEXOGRAPHIC PRESS OPERATOR Ab previously reported as: Test not performed [...] Work Phone: Start: 02-26-2021 Mammography Isabela Dupree APRN.INSTRUMENTATION TECH Work Phone: Start: 12-17-2020 Adult depression screening assessment Isabela Dupree APRN.INSTRUMENTATION TECH Work Phone: Start: 03-19-2020 Colonoscopy Isabela Dupree APRN.INSTRUMENTATION TECH Work Phone: Start: 03-20-2017 End: 03-20-2017 Follow Up Appt 6 months John Santiago NP Work Phone: Start: 03-20-2017 End: 03-20-2017 PFM John Santiago BEATER OUT LEVELING MACHINE Work Phone: Start: 08-30-2016 End: 08-30-2016 Ecg [...] 03-29-2013 Follow Up Appt 6 months Penelope Koengi PA-C Work Phone: Start: 03-29-2013 End: 03-29-2013 [...] routine ecg w/least 12 lds w/i&r Sergio hWite MD Start: 07-12-2012 End: 07-12-2012 Follow Up [...] Author Start: 11-12-2029 Lipid panel Lipid Screening [facility] Start: 08-15-2029 Lipid panel Lipid Screening [facility] Start: 07-17-2028 Lipid panel Lipid Screening [facility] Start: 07-26-2027 Lipid 1996 panel - Serum or Plasma Lipid Screening [facility] Start: 07-26-2027 LIPID SCREEN LIPID SCREEN [facility] Start: 01-31-2027 LIPID SCREEN LIPID SCREEN [facility] Start: 10-15-2026 Diabetes Screening Diabetes Screening [facility] Start: 07-17-2026 Diabetes Screening Diabetes Screening [facility] Start: 05-28-2026 LIPID SCREEN LIPID SCREEN [facility] Start: 03-28-2026 Diabetes Screening Diabetes Screening [facility] Start: 11-12-2025 Hepatitis B surface antibody level LDL Cholesterol [facility] Start: 11-05-2025 Annual PCP Team Chronic Disease Visit Annual PCP Team Chronic Disease Visit [facility] Start: 08-15-2025 BP Controlled (<130/80) BP Controlled (<130/80) [facility] Start: 08-15-2025 Hepatitis B surface antibody level LDL Cholesterol [facility] Start: 07-26-2025 DIABETES SCREEN DIABETES SCREEN [facility] Start: 05-22-2025 BP Controlled (<130/80) BP Controlled (<130/80) [facility] Start: 05-13-2025 Annual PCP Team Chronic Disease Visit Annual PCP Team Chronic Disease Visit [facility] Start: 05-13-2025 Covid-19 Vaccine ( season) Covid-19 Vaccine ( season) [facility] Comment on above: Postponed from 02/18/2024 (Declined at t his time) Start: 05-13-2025 Screening for malignant neoplasm of breast Mammogram Screening [facility] Start: 04-29-2025 BP Controlled (<130/80) BP Controlled (<130/80) [facility] Start: 03-19-2025 Colonoscopy COLONOSCOPY [facility] Start: 03-19-2025 COLORECTAL CANCER SCREENING COLORECTAL CANCER SCREENING [facility] Start: 03-19-2025 Screening for malignant neoplasm of colon [facility] Start: 03-03-2025 End: 03-03-2025 Patient encounter procedure 03/03/2025 11:00 AM EDT Office Visit [facility] [place] [address] [place] [address] Jose Hyde MD [address] [place] [address] 3 month f/u [facility] Comment on above: 3 month f/u Start: 01-31-2025 DIABETES SCREEN DIABETES SCREEN [facility] Start: 01-02-2025 End: 01-02-2025 Patient encounter procedure 01/02/2025 1:40 PM EDT Office Visit [facility] [place] [address] [place] [address] Vlad Pyle APRN.SEISMOMETER OPERATOR [address] [place] [address] 1 month follow up BP check [facility] Comment on above: 1 month follow up BP check Start: 12-10-2024 End: 12-10-2024 Patient encounter procedure 12/10/2024 6:20 PM EDT Office Visit [facility] [address] [place] [address] Jose Hyde MD [address] [place] [address] 5 weeks follow up anxiety [facility] Comment on above: 5 weeks follow up anxiety Start: 10-28-2024 End: 10-28-2024 Patient encounter procedure 10/28/2024 3:40 PM EDT Office Visit [facility] [place] [address] [place] [address] Jose Hyde MD [address] [place] [address] 3 month f/u [facility] [place] Comment on above: 3 month f/u Start: 10-24-2024 Patient discharge [facility] Start: 10-23-2024 Vitamin D, 1,25-dihydroxy measurement [facility] Start: 10-22-2024 Immunoglobulin measurement [facility] Start: 10-22-2024 Laboratory test [facility] Start: 10-22-2024 Procedure [facility] Start: 10-22-2024 Serum immunofixation [facility] Start: 10-22-2024 End: 10-22-2024 [facility] Start: 10-22-2024 Application of intermittent pneumatic compression device [facility] Start: 10-21-2024 Following clinical pathway protocol [facility] Start: 10-21-2024 Aspiration precautions [facility] Start: 10-21-2024 Assessment of risk of venous thromboembolism [facility] Start: 10-21-2024 Documentation procedure [facility] Start: 10-21-2024 Insertion of catheter into peripheral vein [facility] Start: 10-21-2024 Measuring intake and output [facility] Start: 10-21-2024 Patient referral to dietitian [facility] Start: 10-21-2024 Providing care according to standard [facility] Start: 10-21-2024 Provision of activity privileges [facility] Start: 10-21-2024 Referral to gastroenterology service [facility] Start: 10-21-2024 Referral to service [facility] Start: 10-21-2024 [facility] Start: 10-21-2024 Admission procedure [facility] Start: 10-21-2024 Consultation [facility] Start: 10-21-2024 Patient referral to dietitian [facility] Start: 10-21-2024 [facility] Start: 10-15-2024 End: 10-15-2024 [facility] Start: 10-15-2024 Annual PCP Team Chronic Disease Visit Annual PCP Team Chronic Disease Visit [facility] Start: 10-15-2024 Anxiety Screening Anxiety Screening [facility] Start: 10-15-2024 Depression Screening Depression Screening [facility] Start: 10-15-2024 End: 10-15-2024 Referral to service [facility] Start: 09-12-2024 End: 09-12-2024 Patient encounter procedure 09/12/2024 11:00 AM EDT Office Visit [facility] [address] [place] [address] Mehdi Rick MD [address] [place], [place] [id number] follow up [facility] Comment on above: follow up MRI Start: 09-05-2024 End: 09-05-2024 Patient encounter procedure 09/05/2024 3:30 PM EDT Office Visit [facility] [address] [place], [place] [id number] Mehdi Rick MD [address] [place] [address] follow up [facility] Comment on above: follow up MRI Start: 08-22-2024 End: 08-22-2024 Patient encounter procedure 08/22/2024 3:00 PM EST Appointment [facility] [address] [place], [place] [id number] Cognitive impairment, mild, so stated [G31.84] [facility] Comment on above: Cognitive impairment, mild, so stated [G 31.84] Start: 08-15-2024 End: 11-14-2024 Lipid 1996 panel - Serum or Plasma [facility] Work Phone: Comment on above: Expected: 08/15/2024, Expires: Start: 08-15-2024 End: 11-14-2024 LIPID PANEL, NONFASTING LIPID PANEL, NONFASTING Lab Routine Essential hypertension Mixed hyperlipidemia Expected: 08/15/2024, Expires: 11/14/2024 [facility] Comment on above: Expected: 08/15/2024, Expires: Start: 08-12-2024 End: 08-12-2024 Patient encounter procedure 08/12/2024 12:00 PM EST Office Visit [facility] [address] [place], [place] [id number] Vlad Pyle APRN.SEISMOMETER OPERATOR [address] [place] [address] 3 mo follow up r/s from 07/30 [facility] [place] Comment on above: 3 mo follow up r/s from 07/30 Start: 07-30-2024 End: 07-30-2024 Patient encounter procedure 07/30/2024 12:00 PM EST Office Visit [facility] [place] [address] [place] [address] Vlad Pyle APRN.SEISMOMETER OPERATOR [address] [place] [address] 3 month f/u [facility] [place] Comment on above: 3 month f/u Start: 07-17-2024 BP Controlled (<130/80) BP Controlled (<130/80) [facility] Start: 07-17-2024 Hepatitis B surface antibody level LDL Cholesterol [facility] Start: 07-03-2024 End: 10-02-2024 25-hydroxyvitamin D3 [Mass/volume] in Serum or Plasma VITAMIN D 25 HYDROXY Lab Routine Vitamin D deficiency Encounter for long-term current use of medication Expected: 07/03/2024 (Approximate), Expires: 10/02/2024 [facility] Comment on above: Expected: 07/03/2024 (Approximate), Expi res: 10/02/2024 Start: 07-03-2024 End: 10-02-2024 CBC panel - Blood by Automated count COMPLETE BLOOD COUNT Lab Routine Encounter for long-term current use of medication Essential hypertension Expected: 07/03/2024 (Approximate), Expires: 10/02/2024 [facility] Comment on above: Expected: 07/03/2024 (Approximate), Expi res: 10/02/2024 Start: 07-03-2024 End: 10-02-2024 Comprehensive metabolic 2000 panel - Serum or Plasma COMPREHENSIVE METABOLIC PANEL Lab Routine IFG (impaired fasting glucose) Encounter for long-term current use of medication Essential hypertension Hypokalemia Expected: 07/03/2024 (Approximate), Expires: 10/02/2024 [facility] Comment on above: Expected: 07/03/2024 (Approximate), Expi res: 10/02/2024 Start: 07-03-2024 End: 10-02-2024 Hemoglobin A1c in Blood HEMOGLOBIN A1C Lab Routine IFG (impaired fasting glucose) Encounter for long-term current use of medication Expected: 07/03/2024 (Approximate), Expires: 10/02/2024 [facility] Work Phone: Comment on above: Expected: 07/03/2024 (Approximate), Expi res: 10/02/2024 Start: 07-03-2024 End: 10-02-2024 Thyrotropin [Units/volume] in Serum or Plasma THYROID STIMULATING HORMONE Lab Routine Acquired hypothyroidism Expected: 07/03/2024 (Approximate), Expires: 10/02/2024 [facility] Comment on above: Expected: 07/03/2024 (Approximate), Expi res: 10/02/2024 Start: 07-03-2024 End: 10-02-2024 Thyroxine (T4) free [Mass/volume] in Serum or Plasma T4 FREE/FREE THYROXINE Lab Routine Acquired hypothyroidism Expected: 07/03/2024 (Approximate), Expires: 10/02/2024 [facility] Comment on above: Expected: 07/03/2024 (Approximate), Expi res: 10/02/2024 Start: 07-03-2024 End: 10-02-2024 Triiodothyronine (T3) Free [Mass/volume] in Serum or Plasma T3, FREE Lab Routine Acquired hypothyroidism Expected: 07/03/2024 (Approximate), Expires: 10/02/2024 [facility] Comment on above: Expected: 07/03/2024 (Approximate), Expi res: 10/02/2024 Start: 06-26-2024 Annual PCP Team Chronic Disease Visit Annual PCP Team Chronic Disease Visit [facility] Start: 06-19-2024 Advance Directive Discussion Advance Directive Discussion [facility] Start: 06-05-2024 End: 09-04-2024 Cobalamin (Vitamin B12) [Mass/volume] in Serum or Plasma [facility] Work Phone: Comment on above: Expected: 06/05/2024, Expires: Start: 06-05-2024 End: 09-04-2024 Methylmalonate [Moles/volume] in Serum or Plasma [facility] Comment on above: Expected: 06/05/2024, Expires: Start: 06-05-2024 End: 06-05-2024 Patient encounter procedure 06/05/2024 8:30 AM EST Office Visit Geriatrics [address] [place], [place] [id number] Mehdi Rick MD [address] [place], [place] [id number] Memory deficit [R41.3] [facility] Comment on above: Memory deficit [R41.3] Start: 05-28-2024 DIABETES SCREEN DIABETES SCREEN [facility] Start: 05-13-2024 End: 05-13-2024 Patient encounter procedure 05/13/2024 2:30 PM EST Appointment Mammogram [address] [place], [place] [id number] Encounter for screening mammogram for breast cancer [Z12.31] Mammogram Comment on above: Encounter for screening mammogram for br east cancer [Z12.31] Start: 05-01-2024 Annual PCP Team Chronic Disease Visit Annual PCP Team Chronic Disease Visit [facility] Start: 05-01-2024 BP Controlled (<130/80) BP Controlled (<130/80) [facility] Start: 04-28-2024 Mammography Mammogram Screening [facility] Start: 04-28-2024 Screening for malignant neoplasm of breast Mammogram Screening [facility] Start: 04-16-2024 End: 04-16-2024 Patient encounter procedure 04/16/2024 2:00 PM EDT Office Visit [facility] [address] [place], [place] [id number] Romina Chao APRN.INSTRUMENTATION TECH [address] [place] [address] 6 month follow up [facility] Comment on above: 6 month follow up Start: 03-28-2024 Annual PCP Team Chronic Disease Visit Annual PCP Team Chronic Disease Visit [facility] Start: 03-28-2024 BP Controlled (<130/80) BP Controlled (<130/80) [facility] [place] [facility] Start: 03-28-2024 Covid-19 Vaccine () Covid-19 Vaccine () [facility] Comment on above: Postponed from 02/17/2023 (Declined at t his time) Start: 02-18-2024 Covid-19 Vaccine () Covid-19 Vaccine () [facility] Start: 02-18-2024 [facility]enza [facility] Start: 10-16-2023 End: 10-16-2023 Patient encounter procedure 10/16/2023 2:40 PM EDT Office Visit [facility] [place] [address] [place], [place] [address] Romina Chao APRN.INSTRUMENTATION TECH [address] [place], [place] [address] Follow Up 6 mo [facility] Comment on above: Follow Up 6 mo Start: 10-16-2023 End: 01-15-2024 25-hydroxyvitamin D3 [Mass/volume] in Serum or Plasma [facility] Comment on above: Expected: 10/16/2023, Expires: Start: 10-16-2023 End: 01-15-2024 Comprehensive metabolic 2000 panel - Serum or Plasma [facility] Work Phone: Comment on above: Expected: 10/16/2023, Expires: Start: 10-16-2023 End: 01-15-2024 Ferritin [Mass/volume] in Serum or Plasma [facility] Comment on above: Expected: 10/16/2023, Expires: Start: 10-16-2023 End: 01-15-2024 Iron and Iron binding capacity panel - Serum or Plasma [facility] Comment on above: Expected: 10/16/2023, Expires: Start: 10-16-2023 End: 01-15-2024 Thyrotropin [Units/volume] in Serum or Plasma [facility] Comment on above: Expected: 10/16/2023, Expires: Start: 10-16-2023 End: 01-15-2024 Thyroxine (T4) free [Mass/volume] in Serum or Plasma [facility] Comment on above: Expected: 10/16/2023, Expires: 4 Start: 10-16-2023 End: 01-15-2024 Triiodothyronine (T3) Free [Mass/volume] in Serum or Plasma [facility] Comment on above: Expected: 10/16/2023, Expires: 4 Start: 08-23-2023 BP CONTROLLED (<130/80) BP CONTROLLED (<130/80) [facility] Start: 07-26-2023 Hepatitis B surface antibody level LDL CHOLESTEROL [facility] Start: 06-29-2023 ANNUAL PCP TEAM CHRONIC DISEASE VISIT ANNUAL PCP TEAM CHRONIC DISEASE VISIT [facility] Start: 06-29-2023 BP CONTROLLED (<130/80) BP CONTROLLED (<130/80) [facility] Start: 06-29-2023 COVID-19 VACCINE (4 - Booster for Moderna series) COVID-19 VACCINE (4 - Booster for Moderna series) [facility] Comment on above: Postponed from 08/27/2021 (Declined at t his time) Start: 06-29-2023 COVID-19 VACCINE (4 - Moderna series) COVID-19 VACCINE (4 - Moderna series) [facility] Comment on above: Postponed from 08/27/2021 (Declined at t his time) Start: 06-29-2023 Urine microalbumin profile [facility] Comment on above: Postponed from 11/14/2021 (Declined at t his time) Start: 06-19-2023 Advance Directive Discussion Advance Directive Discussion [facility] Start: 06-19-2023 Behavioral Health Screening Behavioral Health Screening [facility] Start: 06-19-2023 Depression Assessment Depression Assessment [facility] Start: 04-13-2023 Mammography [facility] Start: 02-17-2023 Influenza vaccination INFLUENZA (#1) [facility] Start: 01-31-2023 Hepatitis B surface antibody level LDL CHOLESTEROL [facility] Start: 12-06-2022 ANNUAL PCP TEAM CHRONIC DISEASE VISIT ANNUAL PCP TEAM CHRONIC DISEASE VISIT [facility] Start: 05-28-2022 Hepatitis B surface antibody level LDL CHOLESTEROL [facility] Start: 05-05-2022 ANNUAL PCP TEAM CHRONIC DISEASE VISIT ANNUAL PCP TEAM CHRONIC DISEASE VISIT [facility] Start: 02-26-2022 Mammography MAMMOGRAM [facility] Start: 02-17-2022 Influenza vaccination INFLUENZA (#1) [facility] Start: 12-17-2021 Adult depression screening assessment DEPRESSION SCREENING [facility] Start: 12-17-2021 BP CONTROLLED (<130/80) BP CONTROLLED (<130/80) [facility] Start: 11-14-2021 Urine microalbumin profile [facility] Start: 10-30-2021 COVID-19 VACCINE (4 - Booster for Moderna series) COVID-19 VACCINE (4 - Booster for Moderna series) [facility] Start: 08-27-2021 COVID-19 VACCINE (4 - Booster for Moderna series) COVID-19 VACCINE (4 - Booster for Moderna series) [facility] Start: 06-19-2021 ADVANCE DIRECTIVE DISCUSSION ADVANCE DIRECTIVE DISCUSSION [facility] Start: 06-19-2021 DEPRESSION ASSESSMENT DEPRESSION ASSESSMENT [facility] Start: 11-27-2017 End: 11-27-2017 Appointment Appointment [employer] Work Phone: Start: 03-20-2017 End: 03-20-2017 24 hour holter monitor 24 hour holter monitor [facility] Work Phone: Start: 03-20-2017 End: 03-20-2017 Echocardiography Echocardiogram (complete) [facility] Work Phone: Start: 03-20-2017 End: 03-20-2017 Follow Up Appt 6 months Follow Up Appt 6 months [facility] Work Phone: Start: 03-20-2017 End: 03-20-2017 PFM PFM [facility] Work Phone: Start: 03-20-2017 End: 03-20-2017 Appointment Appointment [facility] Work Phone: Start: 08-30-2016 End: 08-30-2016 Ecg routine ecg w/least 12 lds w/i&r EKG (In office) [facility] Work Phone: Start: 08-30-2016 End: 08-30-2016 Follow Up Appt 6 months Follow Up Appt 6 months [facility] Work Phone: Start: 08-30-2016 End: 08-30-2016 PFM PFM [facility] Work Phone: Start: 02-29-2016 End: 02-29-2016 Follow Up Appt 6 months Follow Up Appt 6 months [facility] Work Phone: Start: 02-29-2016 End: 08-25-2016 Follow Up Appt Other Follow Up Appt Other [facility] Work Phone: Start: 02-29-2016 End: 02-29-2016 MMM MMM [facility] Work Phone: Start: 02-22-2016 End: 08-20-2015 *Hepatic Function Panel *Hepatic Function Panel [facility] Work Phone: Start: 02-22-2016 End: 08-20-2015 Lipid 1996 panel *Lipid Profile CC PCP [facility] Work Phone: Start: 08-11-2015 End: 08-20-2015 *Hepatic Function Panel *Hepatic Function Panel [facility] Work Phone: Start: 08-11-2015 End: 08-11-2015 Arterial exam Arterial exam [facility] Work Phone: Start: 08-11-2015 End: 08-11-2015 Follow Up Appt 6 months Follow Up Appt 6 months [facility] Work Phone: Start: 08-11-2015 End: 08-20-2015 Lipid 1996 panel *Lipid Profile CC PCP [facility] Work Phone: Start: 08-11-2015 End: 08-11-2015 PFM PFM [facility] Work Phone: Start: 07-01-2015 End: [...] Lipid 1996 panel *Lipid Profile CC PCP [facility] Work Phone: Start: 12-29-2014 End: 12-29-2014 MMM MMM [facility] Work Phone: Start: 06-30-2014 End: 08-25-2016 Follow Up Appt 6 months Follow Up Appt 6 months [facility] Work Phone: Start: 06-30-2014 End: 08-25-2016 Follow Up Appt Other Follow Up Appt Other [facility] Work Phone: Start: 06-30-2014 End: 08-25-2016 PFM PFM [facility] Work Phone: Start: 01-01-2014 End: 01-16-2014 *BMP *BMP [facility] Work Phone: Start: 01-01-2014 End: 01-01-2014 Follow Up Appt 6 months Follow Up Appt 6 months [facility] Work Phone: Start: 01-01-2014 End: 08-25-2016 Follow Up Appt Other Follow Up Appt Other [facility] Work Phone: Start: 01-01-2014 End: 01-01-2014 MMM MMM [facility] Work Phone: Start: 07-18-2013 End: 07-18-2013 Follow Up Appt Other Follow Up Appt Other [facility] Work Phone: Start: 03-29-2013 End: 03-29-2013 Arterial exam Arterial exam [facility] Work Phone: Start: 03-29-2013 End: 03-29-2013 Follow Up Appt 3 months Follow Up Appt 3 months [facility] Work Phone: Start: 03-29-2013 End: 03-29-2013 Follow Up Appt 6 months Follow Up Appt 6 months [facility] Work Phone: Start: 03-29-2013 End: 03-29-2013 MMM MMM [facility] Work Phone: Start: 03-29-2013 End: 03-29-2013 PFM PFM [facility] Work Phone: Start: 12-17-2012 End: 03-13-2013 Ecg routine ecg w/least 12 lds w/i&r EKG (In office) [facility] Work Phone: Start: 12-17-2012 End: 12-17-2012 Follow Up Appt 3 months Follow Up Appt 3 months [facility] Work Phone: Start: 12-17-2012 End: 12-17-2012 MMM MMM [facility] Work Phone: Start: 12-17-2012 End: 12-17-2012 Nuclear stress test -exercise Nuclear stress test -exercise [facility] Work Phone: Start: 10-19-2012 End: 10-19-2012 Follow Up Appt Other Follow Up Appt Other [facility] Work Phone: Start: 10-19-2012 [...] 6 weeks Follow Up Appt 6 weeks [facility] Work Phone: Start: 08-31-2012 End: 09-27-2012 MMM MMM [facility] Work Phone: Start: 08-31-2012 End: 09-27-2012 PFM PFM [facility] Work Phone: Start: 08-16-2012 End: 08-16-2012 Arterial exam Arterial exam [facility] Work Phone: Start: 07-12-2012 End: 07-12-2012 Ecg routine ecg w/least 12 lds w/i&r EKG (In office) [facility] Work Phone: Start: 07-12-2012 End: 07-12-2012 Follow Up Appt 3 months Follow Up Appt 3 months [facility] Work Phone: Start: 07-12-2012 End: 07-12-2012 Follow Up Appt Other Follow Up Appt Other [facility] Work Phone: Start: 07-12-2012 End: 07-12-2012 PFM PFM [facility] Work Phone: Start: 04-12-2012 End: 07-25-2012 *BMP *BMP [facility] Work Phone: Start: 04-12-2012 End: 07-25-2012 *CBC with Differential *CBC with Differential [facility] Work Phone: Start: 04-12-2012 End: 07-25-2012 aPTT Coag time (Bld) *PTT-Partial Thromboplastin Time [facility] Work Phone: Start: 04-12-2012 End: 07-18-2012 Chest x-ray X-Ray, Chest, PA & Lateral [facility] Work Phone: Start: 04-12-2012 End: 04-12-2012 Ecg routine ecg w/least 12 lds w/i&r EKG (In office) [facility] Work Phone: Start: 04-12-2012 End: 04-12-2012 Echocardiography Echocardiogram (complete) [facility] Work Phone: Start: 04-12-2012 End: 04-12-2012 Follow Up Appt 3 months Follow Up Appt 3 months [facility] Work Phone: Start: 04-12-2012 End: 07-25-2012 INR Coag RelTime (PPP) *PT/INR [facility] Work Phone: Start: 04-12-2012 End: 04-13-2012 Left Heart Cath Left Heart Cath [facility] Work Phone: Start: 2009 RSV Vaccine (1 - 1-dose 60+ series) RSV Vaccine (1 - 1-dose 60+ series) [facility] Start: 11-17-2006 Medicare Annual Wellness Visit Medicare Annual Wellness Visit [facility] Start: 1994 COLOGUARD (FIT-DNA) COLOGUARD (FIT-DNA) [facility] Start: [address] COLONOGRAPHY [facility] Start: 1994 FECAL OCCULT BLOOD FECAL OCCULT BLOOD [facility] Start: 1994 Screening for malignant neoplasm of colon [facility] Start: 1994 SIGMOIDOSCOPY SIGMOIDOSCOPY [facility] Albumin [Moles/volum e] in Serum or Plasma [facility] Albumin/Globulin ratio [facility] Angiotensin converti ng enzyme [Enzymatic activity/volume] in Serum or Plasma [facility] Cancer Ag 19-9 [Units/volume] in Serum or Plasma [facility] Carcinoembryonic Ag [Mass/volume] in Serum or Plasma [facility] Chitobioside IgA Ab [Units/volume] in Serum or Plasma by Immunoassay [facility] Ct abdomen & pelvis w/o contrast material CT ABD/PEL WO IVCON Radiology Routine Abdominal mass, unspecified abdominal location 10/11/2021 10:54 AM EDT [facility] Work Phone: End: 05-29-2025 DBT Breast - bilateral screening JG SCREENING W HARJIT Radiology Routine Encounter for screening mammogram for breast cancer 1 Occurrences starting 04/29/2024 until 05/29/2025 [facility] Work Phone: Comment on above: 1 Occurrences starting 04/29/2024 until 05/29/2025 DBT Breast - bilater al screening JG SCREENING W HARJIT Radiology Routine Encounter for screening mammogram for breast cancer 05/13/2024 2:39 PM EST [facility] Work Phone: End: 08-19-2023 ECG COMPLETE ECG COMPLETE ECG Routine Coronary artery disease involving [place] coronary artery of [place] heart without angina pectoris Mixed hyperlipidemia Essential hypertension 1 Occurrences starting 08/18/2022 until 08/19/2023 [facility] Work Phone: Comment on above: 1 Occurrences starting 08/18/2022 until 08/19/2023 Electrophoresis: [id number] [facility] Electrophoresis: krishna ma globulin [facility] Gliadin peptide IgA Ab [Units/volume] in Serum [facility] Gliadin peptide IgG Ab [Units/volume] in Serum [facility] Globulin measurement [facility] IgA [Mass/volume] in Serum or Plasma [facility] IgE [Units/volume] i n Serum or Plasma [facility] IgG [Mass/volume] in Serum or Plasma [facility] IgG subclass 1 [Mass/volume] in Serum [facility] IgG subclass 2 [Mass/volume] in Serum [facility] IgG subclass 3 [Mass/volume] in Serum [facility] IgG subclass 4 [Mass/volume] in Serum [facility] IgM [Mass/volume] in Serum or Plasma [facility] Laboratory data interpretation [facility] Laminaribioside IgG Ab [Units/volume] in Serum or Plasma by Immunoassay [facility] End: 05-17-2024 JG SCREENING JG SCREENING Radiology Routine Encounter for screening mammogram for breast cancer 1 Occurrences starting 04/19/2023 until 05/17/2024 [facility] Work Phone: Comment on above: 1 Occurrences starting 04/19/2023 until 05/17/2024 JG SCREENING JG SCREENING Ra diology Routine Encounter for screening mammogram for breast cancer 04/28/2023 1:31 PM EST [facility] Work Phone: Mannobioside IgG Ab [Units/volume] in Serum or Plasma by Immunoassay [facility] Measurement of funga l antibody [facility] Measurement of immunoglobulin A in serum specimen [facility] End: 07-05-2025 MR Brain WO contrast MRI BRAIN W QUANT WO IVCON Radiology Routine Cognitive impairment, mild, so stated 1 Occurrences starting 06/05/2024 until 07/05/2025 [facility] Comment on above: 1 Occurrences starting 06/05/2024 until 07/05/2025 End: 07-05-2025 MR Unspecified body region 3D post processing MRI 3D BRAIN QUANT Radiology Routine Cognitive impairment, mild, so stated 1 Occurrences starting 06/05/2024 until 07/05/2025 [facility] Comment on above: 1 Occurrences starting 06/05/2024 until 07/05/2025 Neutrophil cytoplasm ic Ab.classic [Units/volume] in Serum [facility] Neutrophil cytoplasm ic Ab.perinuclear.atypical [Titer] in Serum by Immunofluorescence [facility] End: 09-21-2023 NM CARDIAC PERF STRESS/PHARM NM CARDIAC PERF STRESS/PHARM Radiology Routine Coronary artery disease involving [place] coronary artery of [place] heart with angina pectoris (HCC) 1 Occurrences starting 08/22/2022 until 09/21/2023 [facility] Work Phone: Comment on above: 1 Occurrences starting 08/22/2022 until 09/21/2023 P-ANCA measurement [facility] Patient Education [facility] Work Phone: Patient referral [facility] Work Phone: Protein electrophore sis panel - Serum or Plasma [facility] End: 04-29-2023 Screening mammography bi 2-view breast inc cad JG SCREENING Radiology Routine Encounter for screening mammogram for breast cancer 1 Occurrences starting 03/30/2022 until 04/29/2023 [facility] Work Phone: Comment on above: 1 Occurrences starting 03/30/2022 until 04/29/2023 Tissue transglutamin ase IgA Ab [Units/volume] in Serum [facility] Immunizations Immunization Date Immunization Notes Care Provider Kosta jaimes 04-29-2024 influenza, high dose seasonal, preservative-free Vlad Pyle APRN.SEISMOMETER OPERATOR Work Phone: [facility] 08-22-2023 respiratory syncytia l virus (RSV) vaccine, adjuvanted (AREXVY) Vlad Pyle MICROBIOLOGY DIRECTOR.SEISMOMETER OPERATOR Work Phone: [facility] 03-23-2023 influenza (HD-IIV4) vaccine, age 65+ yr, high dose, quadrivalent, PF (FLUZONE HIGH-DOSE) Romina Chao APRN.INSTRUMENTATION TECH Work Phone: [facility] 03-23-2023 influenza virus vacc ine, unspecified formulation Jose Hyde MD Work Phone: [facility] 03-22-2023 influenza, high dose seasonal, preservative-free Jose Hyde MD Work Phone: [facility] 04-13-2022 influenza, high-dose , quadrivalent vaccine (FLUZONE HIGH DOSE QUADRIVALENT) Jose Hyde MD Work Phone: [facility] 03-03-2021 influenza, high-dose , quadrivalent vaccine (FLUZONE HIGH DOSE QUADRIVALENT) Isabela Dupree APRN.INSTRUMENTATION TECH Work Phone: [facility] Work Phone: 10-16-2020 COVID-19 vaccine, fu ll dose (MODERNA) Isabela Dupree APRN.INSTRUMENTATION TECH Work Phone: [facility] 09-18-2020 COVID-19 vaccine, fu ll dose (MODERNA) Isabela Dupree APRN.INSTRUMENTATION TECH Work Phone: [facility] 03-25-2020 influenza, high-dose , quadrivalent vaccine (FLUZONE HIGH DOSE QUADRIVALENT) Isabela Dupree APRN.INSTRUMENTATION TECH Work Phone: [facility] 03-21-2019 influenza, high dose seasonal, preservative-free Isabela Ineman MICROBIOLOGY DIRECTOR.INSTRUMENTATION TECH Work Phone: [facility] Work Phone: 12-27-2018 zoster vaccine recombinant Isabela Ineman MICROBIOLOGY DIRECTOR.INSTRUMENTATION TECH Work Phone: [facility] Work Phone: 10-09-2018 zoster vaccine recombinant Isabela Ineman MICROBIOLOGY DIRECTOR.INSTRUMENTATION TECH Work Phone: [facility] Work Phone: 03-08-2018 influenza, high dose seasonal, preservative-free Isabela Ineman MICROBIOLOGY DIRECTOR.INSTRUMENTATION TECH Work Phone: [facility] Work Phone: 03-06-2017 influenza, high dose seasonal, preservative-free Isabela Ineman MICROBIOLOGY DIRECTOR.INSTRUMENTATION TECH Work Phone: [facility] 08-31-2016 pneumococcal polysaccharide vaccine, 23 valent Isabela Ineman MICROBIOLOGY DIRECTOR.INSTRUMENTATION TECH Work Phone: [facility] 03-10-2016 influenza, high dose seasonal, preservative-free Isabela Ineman MICROBIOLOGY DIRECTOR.INSTRUMENTATION TECH Work Phone: [facility] 05-19-2015 pneumococcal conjuga te vaccine, 13 valent Isabela Ineman MICROBIOLOGY DIRECTOR.INSTRUMENTATION TECH Work Phone: [facility] Work Phone: 04-17-2015 influenza, high dose seasonal, preservative-free Isabela Ineman MICROBIOLOGY DIRECTOR.INSTRUMENTATION TECH Work Phone: [facility] 03-31-2014 influenza, seasonal, injectable Isabela Ineman MICROBIOLOGY DIRECTOR.INSTRUMENTATION TECH Work Phone: [facility] 03-20-2013 influenza virus vacc ine, unspecified formulation Isabela Ineman MICROBIOLOGY DIRECTOR.INSTRUMENTATION TECH Work Phone: [facility] 03-10-2012 influenza virus vacc ine, unspecified formulation Isabela Ineman MICROBIOLOGY DIRECTOR.INSTRUMENTATION TECH Work Phone: [facility] Work Phone: 11-15-2011 tetanus toxoid, redu kelly diphtheria toxoid, and acellular pertussis vaccine, adsorbed Isabela Ineman MICROBIOLOGY DIRECTOR.INSTRUMENTATION TECH Work Phone: [facility] 03-23-2011 influenza virus vacc ine, unspecified formulation Isabela Dupree MICROBIOLOGY DIRECTOR.INSTRUMENTATION TECH Work Phone: [facility] 03-23-2011 pneumococcal polysaccharide vaccine, 23 valent Isabela Dupree APRN.INSTRUMENTATION TECH Work Phone: [facility] 04-09-2010 influenza virus vacc ine, unspecified formulation Isabela Dupree MICROBIOLOGY DIRECTOR.INSTRUMENTATION TECH Work Phone: [facility] Work Phone: 06-01-2009 novel influenza-H1N1 -09, all formulations Isabela Dupree APRN.INSTRUMENTATION TECH Work Phone: [facility] Work Phone: 04-09-2009 influenza virus vacc ine, unspecified formulation Isabela Dupree APRN.INSTRUMENTATION TECH Work Phone: [facility] Work Phone: Payers Date Payer Category Payer Self-pay [id number] 2022 Private Health Insurance [employer] [id number] 2022 Unknown [id number] 2017 Unknown [employer] [facility] [place] MEDICARE SUPPLEMENT [id number] 2017-Present [phone] [employer] [place] [id number] Indemnity [id number] 2017 Unknown [id number] 2006 Medicare MEDICARE MEDICAR E A AND B [id number] 2006-Present [phone] [address] [address] [place] [address] Medicare [id number] 2006 Medicare [id number] 2006 Medicare [id number] Unknown [employer] [id number] Unknown [employer] [place] [id number] Unknown [id number] Unknown [id number] Unknown [id number] Unknown [id number] Unknown [id number] Unknown [id number] Unknown [id number] Unknown [id number] Unknown [id number] Unknown [id number] Social History Date Type Detail Facility Start: 12-28-2010 End: 10-21-2024 Tobacco smoking status NHIS Ex-smoker [facility] End: 06-19-2002 History of tobacco use Current smoker [facility] Start: 06-19-1972 End: 06-19-2002 History of tobacco use Cigarette Smoker [facility] Start: 12-28-2010 End: 03-28-2023 Cigarettes smoked current (pack per day) - Reported 0.5 [facility] Work Phone: Start: 12-28-2010 End: 04-29-2024 Tobacco use and exposure Smokeless tobacco non-user [facility] Start: 08-09-2021 End: 12-03-2024 Alcohol intake Current drinker of alcohol (finding) [facility] Start: 1950 Sex Assigned At Not on file [facility] Start: 09-13-2021 End: 04-13-2022 Exposure to SARS-CoV-2 (event) Not sure [facility] Start: 1950 Sex Assigned At Female [facility] Start: 06-19-1972 End: 04-29-2024 Tobacco smoking status GAIS Occasional tobacco smoker [facility] Start: 08-22-2022 End: 03-28-2023 Tobacco use panel [facility] Work Phone: Adult Depression Screening Assessment 2 [facility] Work Phone: Start: 10-26-2021 Gender identity Identifies as female gender (finding) [facility] Start: 10-26-2021 Sexual orientation Heterosexual (fin sandy) [facility] Start: 06-30-2020 Tobacco smoking stat us GAIS Unknown if ever smoked [facility] Start: 03-28-2023 Tobacco Comment Stressors noted [facility] Has the electric, ga s, oil, or water company threatened to shut off services in your home in past 12Mo No [facility] Are you now , , , , never or living with a partner? [facility] How often to you hav e a drink containing alcohol? 2-3 time sa week [facility] How many standard drinks containing alcohol do you have on a typical day? 3 or 4 [facility] How often do you hav e 6 or more drinks on 1 occasion? Less than monthly [facility] Do you feel stress - tense, restless, nervous, or anxious, or unable to sleep at night because your mind is troubled all the time - these days [OSQ] Very much [facility] (I/We) worried jean-pierre er (my/our) food would run out before (I/we) got money to buy more. Never true [facility] Start: 06-05-2024 Education 13 [facility] Medical Equipment Procedure Code Equipment Code Equipment Origin al Text Equipment Identifier Dates ERCP (endoscopic retrograde cholangiopancreatog fco) ([id number]) Polymeric biliary stent, non-bioabsorbable [id number] FDA Start: 10-22-2024 ERCP (endoscopic retrograde cholangiopancreatog fco) Polymeric pancreatic stent, non-bioabsorbable [id number] FDA Start: 10-22-2024 Graft Infuse 20g a Medium Bovine Collagen Rhbmp-2 2x1in Bone Vial Absorbable - [id number] Start: 09-09-2016 Cage - [id number] Start: 09-09-2016 Comment on above: Description: [...] Assessment Result Facility 10-24-2024 Functional status Chair [facility] Work Phone: 12-08-2017 Are you deaf, or do you have serious difficulty hearing No 12/08/2017 1:08 PM Jose Bhatia MD [facility] 12-08-2017 Are you blind, or do you have serious difficulty seeing, even when wearing glasses No 12/08/2017 1:08 PM Jose Bhatia MD No [facility] 12-08-2017 Do you have serious difficulty walking or climbing stairs No 12/08/2017 1:08 PM Jose Bhatia MD No [facility] 12-08-2017 Do you have difficul ty dressing or bathing No 12/08/2017 1:08 PM Jose Bhatia MD [facility] 12-08-2017 Because of a physica l, mental, or emotional condition, do you have difficulty doing errands alone such as visiting a physician's office or shopping No 12/08/2017 1:08 PM Jose Bhatia MD No [facility] Mental Status Date Assessment Result Facility 10-24-2024 Cognitive function Cooperative;Anxious [facility] Work Phone: 10-23-2024 Cognitive function Arousable To Voice/Nam e [facility] Work Phone: 10-15-2024 Cognitive function Level Of Cons ciousness Awake;Alert;Appropriate [facility] Work Phone: 10-15-2024 Cognitive function Level Of Cons ciousness Awake;Alert;Follows Commands [facility] Work Phone: 12-08-2017 Because of a physica l, mental, or emotional condition, do you have serious difficulty concentrating, remembering, or making decisions No 12/08/2017 1:08 PM Jose Bhatia MD No [facility] Clinical Notes 06-24-2015 to 12-03-2024 [...] 03, 2025 Information received electronically from payer [facility] 12-03-2024 Miscellaneous Notes Electronic PA rec'd and completed for dicyclomine (BENTYL) 10 mg capsule. This was approved.Authorized from June 19, 2024 to December 03, 2025 Information received electronically from payer documented in this encounter [facility] 12-03-2024 Instructions Vlad Pyle APRN.CNS [...] Continue all your blood pressure medications and burr picker refills at your pharmacy as needed. - Check your blood pressure again in about one month and schedule a follow-up appointment to review your readings. - Follow up with Dr. Borrego, the lab aide at the hospital, to review the pathology and cytology results from your procedure; a referral for a second opinion has been sent if you decide to see another specialist. documented in this encounter [facility] 12-03-2024 History of Present illness Narrative SUBJECTIVE: Medicare Annual Wellness Visit Never done DTaP,Tdap,Td Vaccine(2 - Td or Tdap) due on 11/14/2021 Depression Screening due on 10/15/2024 Anxiety Screening due on 10/15/2024 Mammogram Screening due on 05/13/2025 HPI Robi Oliavres is a 73 year old female. PMH [...] Actinic Damage//Sun-damaged skin Cad (Coronary Artery Disease), [place] Coronary Artery Coronary Stent Carcinoma in Situ, [...] 3 months. She has been followed by [facility] lab aide Dr. Borrego. She presented to [facility] on October through October 24, 2024 [...] interest in a second opinion from a lab aide. Hypertension: - Reports running out of antihypertensive [...] Checked in 2016 CAD (coronary artery disease) [place] 1996 Diverticulosis of colon (without mention of [...] Abs Lymph 1.00 - 4.00 k/uL 2.94 Isabella% % 6.9 Abs Isabella <0.87 k/uL 0.78 Eosin% % 1.9 Abs [...] symptom control. - Referred to Dr. Borrego, lab aide, for follow-up on previous tests, including pathology and cytology. - Referral to another lab aide for a second opinion if desired after consultation with Dr. Borrego. Recheck BP next week at [facility] on medication. Vlad Pyle APRN.CNS Medical Decision Making: Problems: Moderate: 1+ chronic illnesses with change Data: Unique source(s) for external note(s) reviewed: 1 Unique test result(s) reviewed: 3+ Risk: Moderate: Drug management Medical Decision Making Level: 4 - Moderate documented in this encounter [facility] 12-03-2024 Note HNO ID: [id number] Author: VLAD PYLE APRN.CNS Service: ? Author [...] Actinic Damage//Sun-damaged skin Cad (Coronary Artery Disease), [place] Coronary Artery Coronary Stent Carcinoma in Situ, [...] 3 months. She has been followed by [facility] lab aide Dr. Borrego. She presented to [facility] on October through October 24, 2024 [...] interest in a second opinion from a lab aide. Hypertension: - Reports running out of antihypertensive medication. ROS Gastrointestinal: (+) diarrhea, (+) fecal urgency, (+) lower abdominal pain Neurological: (+) memory difficulty Psychiatric: (+) anxiety Objective BP 179/91 Pulse 77 Resp 16 Wt 41.1 kg (90 lb 9.7 oz) (more content not included)... [facility] 11-05-2024 Instructions Jose Hyde MD - [...] rises, use the pray, pause, praise approach: [place]--talk with God about what s on your [...] friend, reach out to a counselor or oil and gas drafter for encouragement and help processing stress. - Follow up here on December 10 at 6:20 pm for anxiety and stress-management review and to adjust medications if needed. documented in this encounter [facility] 11-05-2024 Note HNO ID: [id number] Author: JOSE HYDE MD Service: ? Author Type: Physician Type: Progress Notes Filed: 11/25/2024 00:35 Note Text: This note was created using [employer]. Subjective Robi Olivares is a 73 year [...] but is not currently active in her caodaism. She has a history of anxiety and [...] Checked in 2016 CAD (coronary artery disease) [place] 1996 Diverticulosis of colon (without mention of [...] person, place, and (more content not included)... [facility] 11-05-2024 History of Present illness Narrative This note was created using [employer]are[employer]. Subjective Robi Olivares is a 73 year [...] but is not currently active in her caodaism. She has a history of anxiety and [...] Checked in 2016 CAD (coronary artery disease) [place] 1996 Diverticulosis of colon (without mention of [...] the date of the service which included [id number] patient care, completing clinical documentation, performing a medically appropriate examination, counseling and educating the patient/family/caregiver, and ordering medications, tests, or procedures. Jose Hyde MD Recording using [employer] software for draft documentation of the visit was discussed with the patient/authorized access service representative; all questions welcomed and answered. Patient/authorized access service representative agreed to proceed documented in this encounter [facility] 10-24-2024 Discharge summary [facility] 10-24-[address] [facility] Medical Records Department [address] [place] [address] Discharge Summary 10/24/24 1409 MR#: [id number] Acct: [id number] Name: ROBI OLIVARES Rep #: [id number] : 1950 73 From: Monico Patterson MD PCP: Dr. Jose Hyde MD Status:ADM IN Location: [place] [address] Providers Date of Admission: 10/21/24 Date of Discharge: 10/24/24 Primary Care Physician: Dr. Jose Hyde MD Consultations 10/21/24 20:59 Consult: Gastroenterology Routine Consulting Provider: [facility] Reason for Consult: Diarrhea with Melena [...] outpatient follow-up with GI. 4. CAD; s/p [place] with subsequent stent (2012) on prn SL [...] on 10/22/2024 Impressi (more content not included)... [facility] 10-24-2024 Discharge summary [facility] 10-24-2024 Discharge summary Note Date/Time October 24, 2024 2:05pm [facility] Medical Records Department [address] [place] [address] Instructions for Home/Discharge Instructions 10/24/24 1100 MR#: [id number] Acct: [id number] Name: ROBI OLIVARES Rep #:[id number] : [...] ) Swetha Cheatham PA [Med Staff - [facility] Prof] - 10/31/24 1:30 pm () Disposition Discharge Orders: Discharge Patient (Routine); Ordered 10/24/24 Ordered By: Dr. Moinco Patterson 10/24/24 1405<Electronically signed by Monico Patterson MD>Monico Patterson MD CC: Dr. Mango Cornejo, DO; Dr. Jose Hyde MD ~ Signed [facility] Work Phone: 1([phone]) 886-807905-07-2025 Progress note Author Monico Patterson [facility] Note Date/Time October 23, 2024 5:04pm [facility] Medical Records Department [address] [place] [address] Progress Note - Hospitalist 10/23/24 0847 MR#: [id number] Acct: [id number] Name: ROBI OLIVARES Rep #:[id number] : 1950 73 From: Monico Suggs PCP: Dr. Jose Hyde MD Status:AD M IN Location: [place] [address] Reason for Visit Reason for Visit: Diagnoses [...] TNP, Sm ([place]) Antibody TNP, FLEXOGRAPHIC PRESS OPERATOR Antibody TNP, Scl-70 Scleroderma Ab TNP, Antichromatin [...] 5. Additional description as above. Reading Location: [id number] 10/22/24 09:30 IMPRESSION: 1. Motion limited noncontrast exam. 2. Redemonstrated mild biliary dilatation without definite filling defect identified allowing for motion to suggest choledocholithiasis. Findings could reflect ampullary stenosis or perhaps less likely an occult ampullary lesion, and would be optimally evaluated by ERCP. Correlate with serum bilirubin. 3. Additional description as above. Reading Location: [id number] Endo Retro Cholangiopancreatogram 10/22/24 16:30 IMPRESSION: No [...] needs EGD and colonoscopy 4. CAD; s/p GA with subsequent stent (2012) on prn SL [...] - SCD's Charges/Coding Visit Charges Inpatient E&M: 08307 Subs Hosp L2 10/23/24 7687 <Electronically signed by Monico Patterson MD> Cosigner Signature (if applicable): CC: ~ Signed [facility] Work Phone: 1(866) 915-181105-07-2025 Progress note [facility] Medical Records Department [address] [place] [address] Progress Note - Hospitalist 10/23/24 0847 MR#: [id number] Acct: [id number] Name: ROBI OLIVARES Rep #:[id number] : 1950 73 From: Monico Suggs PCP: Dr. Jose Hyde MD Status:AD M IN Location: [place] [address] Reason for Visit Reason for Visit: Diagnoses [...] TNP, Sm ([place]) Antibody TNP, FLEXOGRAPHIC PRESS OPERATOR Antibody TNP, Scl-70 Scleroderma Ab TNP, Antichromatin [...] 3. Additional description as above. Reading Location: [id number] Endo Retro Cholangiopancreatogram 10/22/24 16:30 IMPRESSION: No [...] needs EGD and colonoscopy 4. CAD; s/p GA with subsequent stent (2012) on prn SL [...] - SCD's Charges/Coding Visit Charges Inpatient E&M: 61888 Subs Hosp L2 10/23/24 1704 Cosigner Signature (if applicable): CC: ~ Signed [facility]05-06-2025 Consult note Author Rom Randall [facility] Note Date/Time October 22, 2024 6:54pm [facility] Medical Records Department [address] [place] [address] Anesthesia Postop Eval II 10/22/24 1854 MR#: [id number] Acct: [id number] Name: ROBI OLIVARES Rep #:[id number] : 1950 73 From: Rom Randall MD PCP: Dr. oJse Hyed MD Status:AD M IN Y Race: C Location: [place] [address] 0-1 Anesthesia Postop Eval I Sum Postop [...] MD Cosigner Signature: Date CC: ~ Signed [facility] Work Phone: 1([phone]) 566-408705-06-2025 Consult note Author Rom Randall [facility] Note Date/Time October 22, 2024 5:48pm [facility] Medical Records Department [address] [place] [address] Anesthesia Postop Eval I 10/22/24 1744 MR#: [id number] Acct: [id number] Name: ROBI OLIVARES Rep #:[id number] : 1950 73 From: Rom Randall MD PCP: Dr. Jose Hyde MD Status:AD M IN Y Race: C Location: [place] [address] 0- Anesthesia: Postop Eval I Current Vital [...] MD Cosigner Signature: Date CC: ~ Signed [facility] Work Phone: 1(384) 265-582205-06-2025 Consult note [facility] Medical Records Department [address] [place] [address] Anesthesia Postop Eval II 10/22/24 1854 MR#: [id number] Acct: [id number] Name: ROBI OLIVARES Rep #:[id number] : 1950 73 From: Rom Randall MD PCP: Dr. Jose Hyde MD Status:AD M IN Y Race: C Location: [place] [address] 0-1 Anesthesia Postop Eval I Sum Postop [...] MD Cosigner Signature: Date CC: ~ Signed [facility]05-06-2025 Progress note Author Monicoguillermo Patterson [facility] Note Date/Time October 22, 2024 4:41pm [facility] Medical Records Department [address] [facility] [place] [address] Progress Note - Hospitalist 10/22/24 0854 MR#: [id number] Acct: [id number] Name: ROBI OLIVARES Rep #:[id number] : 1950 73 From: Monico Suggs PCP: Dr. Jose Hyde MD Status:AD M IN Location: [place] [address] Reason for Visit Reason for Visit: Diagnoses [...] % (Auto) 58.0, Lymph % (Auto) 28.3, Isabella % (Auto) 12.0 H, Eos % (Auto) [...] Clarity Clear, Urine pH 6.5, Ur Specific [place] 1.005, Urine Protein 15 H, Urine Glucose [...] % (Auto) 60.8, Lymph % (Auto) 21.5, Isabella % (Auto) 14.7 H, Eos % (Auto) [...] 5. Additional description as above. Reading Location: [facility] Chest X-Ray 10/21/24 15:10 IMPRESSION: No acute cardiopulmonary process is identified radiographically. Emphysematous changes. Arteriosclerotic vascular disease of the aorta. Diffuse osteopenia of the bony thorax. Reading Location: [facility] Rhythm Strip Rhythm Strip: Sinus Rhythm Rate: [...] needs EGD and colonoscopy 4. CAD; s/p GA with subsequent stent (2012) on prn SL [...] SCD's o Charges/Coding Visit Charges Inpatient E&M: 24748 Subs Hosp L2 10/22/24 1641 <Electronically signed by Monico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 Emergency Room. Call 911 if necessary. 10/21/241837 <Electronically signed by Jonas Samuels MD> Cosigner Signature (if applicable): CC: Dr. Jose Hyde MD ~ Signed ADDENDUM by Dr. Jonas Samuels MD on 10/21/24 at 1838 EKG was normal sinus rhythm rate of 72 no acute signs of GA or ischemia. No significant change from from 2023. 10/21/241837<Electronically signed by Jonas Samuels MD> Cosigner Signature (if applicable): cc: Dr. Jose Hyde MD ~* Signed [facility] Work Phone: 1(822) 732-570605-05-2025 Discharge summary [facility] Medical Records Department [address] [place] [address] Emergency Department Summary 10/21/24 MR#: [id number] Acct: [id number] Name: ROBI OLIVARES Rep #:[id number] : [...] states she was taken offher medication. Prior GA. Prior hysterectomy with BSOand appendectomy. Quit smoking [...] similar symptoms: No Recent Illness/Hospitalization: No PFSH [facility] Medical History (Updated 10/21/24 @ 18:[address] Jonas Samuels MD) Atherosclerotic heart disease of [place] coronary artery without angina pectoris Pure hypercholesterolemia IBS (irritable bowel syndrome) Hypothyroidism Presence of stent in coronary artery (~08/08/12) Atherosclerotic heart disease of [place] coronary artery without angina pectoris Benign essential [...] urticaria EXAM Physical Exam Narrative Exam Narrative: Bmwcqqn-spnj-hhx female sitting upright in bed. Vital signs [...] % (Auto) 58.0 Lymph % (Auto) 28.3 Isabella % (Auto) 12.0 H Eos % (Auto) [...] Clarity Clear Urine pH 6.5 Ur Specific [place] 1.005 Urine Protein 15 H Urine Glucose [...] 5. Additional description as above. Reading Location: [facility] Chest X-Ray 10/21/24 15:10 IMPRESSION: No acute cardiopulmonary process is identified radiographically. Emphysematous changes. Arteriosclerotic vascular disease of the aorta. Diffuse osteopenia of the bony thorax. Reading Location: [facility] Chest x-ray, 2 views, AP and lateral, interpreted both by myself and the radiologist. Shows chronicchanges. COPD. No acute process. Rhythm Strip Rhythm Strip: Sinus Rhythm Rate: 72 Ectopy: None EKG Initial EKG: Attestation: I personally reviewed and interpreted this EKG as follows: Interpretation: Sinus Rhythm and No Acute Injury Pattern Comments: Normal sinus rhythm rate of 72 no acute signs of GA or ischemia. Discharge Plan Triage Chief Complaint: [...] MD [Primary Care Provider] - Print Language: Malawian Disposition Disposition: Acute Care Hospital [facility] What to do if you have Problems For any increased pain, shortness of breath, bleeding, nausea or vomiting, chestpain, or any unexpected problems, contact your Primary Care Provider. Call [facility] ([phone]) or report tothe closest Emergency Room. Call 911 if necessary. 10/21/241837 Cosigner Signature (if applicable): CC: Dr. Jose Hyde MD ~ Signed ADDENDUM by Dr. Jonas Samuels MD on 10/21/24 at 1838 EKG was normal sinus rhythm rate of 72 no acute signs of GA or ischemia. No significant change from1 from 2023. 10/21/241837 Cosigner Signature (if applicable): cc: Dr. Jose Hyde MD ~* Signed [facility]05-05-2025 Radiology Diagnostic study note [facility] Imaging Services [address] [place] [address] Chest PA and Lateral MR#: [id number] Acct: [id number] Name: ROBI OLIVARES Rep #: [id number] : 1950 F 73 From: Jose Carpio DO PCP: Dr. Jose Hyde MD Status: RE G ER Study:Chest PA and Lateral Date of Exam: 10/21/24 Exam# [id number] Ordering Dr: Teena Samuels MD PROCEDURE: CHEST [...] osteopenia of the bony thorax. Reading Location: [id number] CC: Dr. Jonas Samuels MD; Dr. Jose Hyde MD ~ Golf Sales Manager: Signed [facility]04-29-2025 NoteHNO ID: [id number] Author: KEE TRIMBLE APRN.DEVIN Service: ? Author [...] patient to ED. Patient will be sent [facility]. will transport patient via private vehicle. Verbalized understand [facility] History of Present illness Narrative* Kee Trimble APRN.INSTRUMENTATION TECH - 10/15/2024 12:22 PM EDT 73-year-old female presents urgent care accompanied by significant other. Chief complaint weakness.Patient states feels like she might have COVID-19 again. Has been unable to eat or drink. States having a hard time walking due to weakness. With presenting symptoms referred patient to ED. Patient will be sent [facility]. will transport patient via private vehicle. Verbalized understand agrees plan of care documented in [facility]Mag[facility] Telephone encounter Note * Telephone Encounter - Farrah Cayenne Inocencio - 08/26/2024 4:49 PM EDT Patient calling back in stating she would like for us to discard it. Eulalia Inocencio Ca August 26, 2024 4:49 PM [facility]03-10[facility] Miscellaneous Notes* Telephone Encounter - [...] discard. Florina Hunter MA documented in this encounterMagruder [facility]03-10-2025 Telephone encounter Note * Telephone Encounter - Florina Hunter MA - 08/26/2024 4:27 PM EDT Received fax requesting form completed for BP monitor. Left message for patient to call office backand let us know if this is desired. If patient did not request this we will discard. Florina Hunter MA [facility]02-27-2025 NoteHNO ID: [id number] Author: VLAD PYLE APRN.SEISMOMETER OPERATOR Service: ? 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 Reports her has an oral cancer, and he is going to [facility] tomorrow . She notes mood is about [...] related to stress. She has been using lmwh-smp-ylyemnx treatments that have not helped much. She [...] and Rhythm: Normal ra (more content not included)...[facility]02-27-2025 History of Present illness Narrative* Vlad Pyle, MICROBIOLOGY DIRECTOR.SEISMOMETER OPERATOR - 08/15/2024 1:34 PM EST SUBJECTIVE: DTaP,Tdap,Td [...] Actinic Damage//Sun-damaged skin Cad (Coronary Artery Disease), [place] Coronary Artery Coronary Stent Carcinoma in Situ, Vulva Severe Vulvar Dysplasia Elevated Lfts Fatty Infiltration of Liver Acne Scars Ibs (Irritable Bowel Syndrome) Pad (Peripheral Artery Disease) ([facility]) Sciatica Due to Displacement of Lumbar Intervertebral Disc Gerd (Gastroesophageal Reflux Disease) Mgus (Monoclonal Gammopathy of Unknown Significance) Iron Deficiency Anemia Scoliosis of Lumbar Spine S/P Lumbar Spinal Fusion Bilateral Carotid Artery Stenosis Chronic Diastolic Chf (Congestive Heart Failure) ([facility]) Presents today regarding memory and weight loss. Reports her has an oral cancer, and he is going to [facility] tomorrow . She notes mood is about [...] related to stress. She has been using ugqe-fjt-zpqqctz treatments that have not helped much. She [...] Checked in 2017 CAD (coronary artery disease) [place] 1996 Diverticulosis of colon (without mention of [...] Abs Lymph 1.00 - 4.00 k/uL 2.94 Isabella% % 6.9 Abs Isabella <0.87 k/uL 0.78 Eosin% % 1.9 Abs [...] medication unchanged 7. CAD (coronary artery disease), [place] coronary artery - ICD9: 414.01, ICD10: I25.10 [...] Level: 4 - Moderate documented in this encounterMagruder [facility]02-19-2025 Telephone encounter Note * Telephone Encounter - Jessica Yung RN - 08/07/2024 10:16 AM EST Andre with [employer] calls to report that he is faxing over forms for PA for Medical Supplies but wouldn't say which supplies. Per previous encounter, Patient not wanting any forms filled out unless she notifies [facility]. Call placed to patient to verify that forms need to be disregarded. Left message for patient to return call. Jessica Yung RN [facility]02-19-2025 Miscellaneous Notes* Telephone Encounter - Jessica Yung RN - 08/07/2024 10:16 AM EST Andre with [employer] calls to report that he is faxing over forms for PA for Medical Supplies but wouldn't say which supplies. Per previous encounter, Patient not wanting any forms filled out unless she notifies [facility]. Call placed to patient to verify that forms need to be disregarded. Left message for patient to return call. Jessica Yung RN documented in this encounterMag[facility]01-31-2025 Telephone encounter Note * Telephone [...] 6 pills per day Jose Hyde MD [facility]01-[facility] Miscellaneous Notes* Telephone Encounter - [...] day Lizzy Marmolejo RN documented in this encounterMagruder [facility] Hospital01-30-2025 Telephone encounter Note * Telephone [...] 6 pills per day Lizzy Marmolejo RN [facility]12-18-2024 NoteHNO ID: [id number] Author: MEHDI RICK MD Service: ? Author Type: Physician Type: Progress Notes Filed: 06/05/2024 11:11 Note Text: [facility] Initial Consult Robi Olivares [...] your spouse a ? No Alzheimer's Questionnaire ([facility] 2010) THE CAREGIVER REPORTS THAT THE PATIENT: [...] a secure place. Social History: Primary language: Malawian Marital Status: Living situation: Home w/ Spouse Socially engaged? (participates in activities such as clubs, caodaism, community center, sports, games, visiting friends/relatives, etc?): YES Caregiver [place] and Stress Are your feeling overwhelmed? NO [...] I, Shopping: I, Cooki (more content not included)...[facility]12-18-[facility]24 History of Present illness Narrative* Mehdi Rick MD - 06/05/2024 9:30 AM EST [facility] Initial Consult Robi Olivares [...] a secure place. Social History: Primary language: Malawian Marital Status: Living situation: Home w/ Spouse Socially engaged? (participates in activities such as clubs, caodaism, community center, sports, games, visiting friends/relatives, etc?): YES Caregiver [place] and Stress Are your feeling overwhelmed? NO [...] Checked in 2016 CAD (coronary artery disease) [place] 1996 Diverticulosis of colon (without mention of [...] Yes, Authorizing Provider Jose Hyde MD Medication QUEtiapine (SEROQUEL) 100 mg [...] , Taking? Yes, Authorizing Provider Vlad Pyle APRN.SEISMOMETER OPERATOR Medication levothyroxine (SYNTHROID) 25 mcg tablet, Sig Take 1 tablet by mouth daily before breakfast., Start Date 03/20/24, End Date , Taking? Yes, Authorizing Provider Romina Chao APRN.INSTRUMENTATION TECH Medication loperamide (IMODIUM) 2 mg cap(s), Sig Take 2 at onset of loose stools, then 1 after eachloose stool as needed up to 6 pills per day, Start Date 03/20/24, End Date , Taking? Yes, Authorizing Provider Romina Chao APRN.INSTRUMENTATION TECH Medication amLODIPine (NORVASC) 10 mg tablet, Sig Take 1 tablet by mouth once daily., Start Date 10/12/23, End Date , Taking? Yes, Authorizing Provider Vlad Pyle APRN.SEISMOMETER OPERATOR Medication valACYclovir (VALTREX) 500 mg tablet, Sig Take 1 tablet by mouth once daily., Start Date07/25/23, End Date , Taking? Yes, Authorizing Provider Romina Chao APRN.INSTRUMENTATION TECH Medication nitroglycerin sublingual (NITROQUICK) 0.4 mg SL [...] Vision No vision problems reported Follows with horse shoer:YES Hearing - Hearing aid : Hearing impairment, [...] physical exercise and socialization Mehdi Rick MD [facility] documented in this encounterMag[facility]uder [facility]12-04-2024 NoteHNO ID: [id number] Author: MARILYN ARECHIGA PA-C Service: ? Author Type: Physician Ham Rolling Machine Operator Type: Progress Notes Filed: 05/22/2024 18:33 Note [...] Checked in 2017 CAD (coronary artery disease) [place] 1996 Diverticulosis of colon (without mention of [...] curettage EGD 08/30/02 small hiatal hernia - [place] EGD TRANSORAL BIOPSY SINGLE/MULTIPLE 04/20/10 ESOPHAGOGASTRODUODENOSCOPY TRANSORAL [...] W/WO PATCH GRAFT COMMON FEMORAL 08-15-13 RIGHT WEB PRODUCTION ASSISTANT TEAEC W/WO PATCH GRAFT ILIOFEMORAL Left 02-01-16 TOTAL ABDOMINAL HYSTERECT W/WO RMVL TUBE OVARY 1975 Hysterectomy, DOROTHY, BSO;Fibroids/infection VULVECTOMY SIMPLE PARTIAL 10/21/2010 Partial simple posterior vulvectomy and anterior vulvar biopsy FAMILY HISTORY Problem Relation Age of Onset Breast Cancer Mother Alzheimer's Disease Mother Heart Mother Colon Cancer Mother was diagnosed around late 60's Heart Father GA at 36 yo; when mom was 3 months other (bladder (more content not included)...[facility] 05-22-2024 History of Present illness Narrative* [...] Checked in 2016 CAD (coronary artery disease) [place] 1996 Diverticulosis of colon (without mention of [...] Procedure Laterality Date COLONOSCOPY 09/06/02 Normal - [place] COLONOSCOPY FLX DX W/COLLJ SPEC WHEN PFRMD 06/24/15 Colonoscopy COLONOSCOPY FLX DX W/COLLJ SPEC WHEN PFRMD 03/14/2017 Colonoscopy COLONOSCOPY FLX DX W/COLLJ SPEC WHEN PFRMD 03/19/2020 Colonoscopy COLONOSCOPY W/BIOPSY SINGLE/MULTIPLE 04/20/10 DILATION & CURETTAGE DX&/THER NONOBSTETRIC 1972 Dilation & curettage EGD 08/30/02 small hiatal hernia - [place] EGD TRANSORAL BIOPSY SINGLE/MULTIPLE 04/20/10 ESOPHAGOGASTRODUODENOSCOPY TRANSORAL [...] W/WO PATCH GRAFT COMMON FEMORAL 08-15-13 RIGHT WEB PRODUCTION ASSISTANT TEAEC W/WO PATCH GRAFT ILIOFEMORAL Left 02-01-16 TOTAL ABDOMINAL HYSTERECT W/WO RMVL TUBE OVARY 1976 Hysterectomy, DOROTHY, BSO;Fibroids/infection VULVECTOMY SIMPLE PARTIAL 10/21/2010 Partial simple posterior vulvectomy and anterior vulvar biopsy FAMILY HISTORY Problem Relation Age of Onset Breast Cancer Mother Alzheimer's Disease Mother Heart Mother Colon Cancer Mother was diagnosed around late 60's Heart Father GA at 36 yo; when mom was 3 months other (bladder cancer) Brother Diabetes Brother Stroke Brother 1/2 brother Heart Brother diabetes; had 4 vessel CABG 09/2011; bladder cancer Coronary Artery Disease Paternal Uncle all 5 uncles had GA's in their early 40's Coronary Artery Disease [...] agreeable. Marilyn Arechiga PA-C documented in this encounterMagruder [facility] Hospital12-04-2024 Miscellaneous Notes* Telephone Encounter - [...] test. Delicia Diop LPN documented in this encounterMagruder Memorial Hospital12-04-2024 Telephone encounter Note * Telephone Encounter - Delicia iDop LPN - 05/22/2024 1:57 PM EST Pt [...] in her positive test. Delicia Diop LPN [facility]11-25-20[facility] History of Present illness Narrative* [...] PATIENT PRESENTS WITH AN IMPLANTABLE OR ATTACHED CHIEF CARDIOPULMONARY TECHNOLOGIST: No RADIOLOGY DEPARTMENT: Mammography PERIPHERAL IV DATA: Not applicable SIGNED BY: Urbano Ram May 13, 2024 2:09 PM documented in this encounterMagruder Memorial Hospital11-25-2024 NoteHNO ID: [id number] Author: ESE RODRIGUEZ Mammo Tech Service: ? Author Type: Upward Bound Director Type: Progress Notes Filed: 05/13/2024 14:09 Note [...] PATIENT PRESENTS WITH AN IMPLANTABLE OR ATTACHED CHIEF CARDIOPULMONARY TECHNOLOGIST: No RADIOLOGY DEPARTMENT: Mammography PERIPHERAL IV DATA: Not applicable SIGNED BY: Urbano Ram May 13, 2024 2:09 [facility]11-25-2024 Instructions* Patient Instructions* Jose Hyde [...] be a deadly combination. documented in this encounterMagruder Memorial Hospital11-25-2024 NoteHNO ID: [id number] Author: JOSE HYDE MD Service: ? Author Type: Physician Type: Progress Notes Filed: 05/13/2024 11:50 Note Text: This note was created using Savareeriter. Subjective Robi Olivares is a 73 year [...] Checked in 2016 CAD (coronary artery disease) [place] 1996 Diverticulosis of colon (without mention of [...] 5.7 12/11/2018 5.5 12/01/2017 5.5 Labs from [facility] reviewed. Also CT and CTA reviewed. Assessment and Plan # Anxiety reaction (F41.1) # Anxiety (F41.9) - Recent episode of blurred vision attributed to anxiety; no evidence of acute cerebrovascular accident on CT scan. - Continue current management with Zoloft. # Hx of blurred vision (Z86.69) - N (more content not included)...[facility]11[facility] History of Present illness Narrative* oJse Hyde MD - 05/13/2024 11:06 AM EST This note was created using Savareeriter. Subjective Robi Olivares is a 73 year [...] Checked in 2016 CAD (coronary artery disease) [place] 1996 Diverticulosis of colon (without mention of [...] 5.7 12/11/2018 5.5 12/01/2017 5.5 Labs from [facility] reviewed. Also CT and CTA reviewed. Assessment [...] lab work. # Coronary artery disease involving rappahannock coronary artery of rapp[place]annock heart without angina pectoris (I25.10) - No [...] which included preparing to see the patient, [id number] patient care, completing clinical documentation, obtaining and/or reviewing separately obtained history, performing a medically appropriate examination, counseling and educating the pat ient/family/caregiver, ordering medications, tests, or procedures, independently interpreting results (not separately reported), and communicating results to the patient/family/caregiver. Jose Hyde MD documented in this encounterMagr[facility]11-11-2024 Telephone encounter Note * Telephone Encounter - Vlad Pyle APRN.CNS - 04/29/2024 11:16 AM EST Does she have to go to [place]? Order changed so she can go to closer to home. [facility] Miscellaneous Notes* Telephone Encounter - Vlad Pyle APRN.CNS - 04/29/2024 11:16 AM EST Does she have to go to [place]? Order changed so she can go to closer to home. * Telephone Encounter - Cynthia oCrdova - 04/29/2024 8:17 AM EST Pt stated she didn't want to travel to [facility] for the neuro test consult. documented in this encounterMagruder Memorial Hospital11-11-2024 Telephone encounter Note * Telephone Encounter - Cynthia Cordova - 04/29/2024 8:17 AM EST Pt stated she didn't want to travel to [facility] for the neuro test consult. [facility]11-11-[facility]24 Instructions* Patient Instructions* Vlad Pyle APRN.CNS - 04/29/2024 7:48 AM EST Increase Zoloft (sertraline) from 100 mg a day to 150 mg a day. Consider seeing a counselor. documented in this encounterMagruder Memorial Hospital11-11-2024 History of Present illness Narrative* [...] Actinic Damage//Sun-damaged skin Cad (Coronary Artery Disease), [place] Coronary Artery Coronary Stent Carcinoma in Situ, Vulva Severe Vulvar Dysplasia Elevated Lfts Fatty Infiltration of Liver Acne Scars Ibs (Irritable Bowel Syndrome) Pad (Peripheral Artery Disease) ([facility]) Sciatica Due to Displacement of Lumbar Intervertebral Disc Gerd (Gastroesophageal Reflux Disease) Mgus (Monoclonal Gammopathy of Unknown Significance) Iron Deficiency Anemia Scoliosis of Lumbar Spine S/P Lumbar Spinal Fusion Bilateral Carotid Artery Stenosis Chronic Diastolic Chf (Congestive Heart Failure) ([facility]) Presents today regarding memory and weight loss. She was seen at [facility] ER for confusion. Review of OSH ER [...] Checked in 2016 CAD (coronary artery disease) [place] 1996 Diverticulosis of colon (without mention of [...] Abs Lymph 1.00 - 4.00 k/uL 2.94 Isabella% % 6.9 Abs Isabella <0.87 k/uL 0.78 Eosin% % 1.9 Abs [...] HIGH- DOSE) - today in office - [employer] COVID-19 VACCINE AGE 12+ YR (COMIRNATY) 2. [...] Level: 4 - Moderate documented in this encounterMagruder Memorial Hospital11-11-2024 NoteHNO ID: [id number] Author: VLAD PYLE APRN.CNS Service: ? Author [...] Actinic Damage//Sun-damaged skin Cad (Coronary Artery Disease), [place] Coronary Artery Coronary Stent Carcinoma in Situ, [...] Stenosis Chronic Diastolic Chf (Congestive Heart Failure) ([facility]) Presents today regarding memory and weight loss. She was seen at [facility] ER for confusion. Review of OSH ER [...] Cholesterol (mg/dL) Date V (more content not included)...[facility]10-01-2024 Telephone encounter Note* Telephone Encounter - [...] Lawler RN March 19, 2024 4:45 PM [facility]10-01-2024 Miscellaneous Notes* Telephone Encounter - [...] 19, 2024 4:45 PM documented in this encounterMagruder Memorial Hospital09-25-2024 Telephone encounter Note * Telephone Encounter - Corinna Rodriguez LPN - 03/13/2024 9:35 AM EDT Faxed received from [employer] requesting a copy of office visit notes. Last office visit dated 10/16/23 was printed and faxed back. [facility]09-25-[facility]24 Miscellaneous Notes* Telephone Encounter - Corinna Rodriguez LPN - 03/13/2024 9:35 AM EDT Faxed received from [employer] requesting a copy of office visit notes. Last office visit dated 10/16/23 was printed and faxed back. documented in this encounterMagruder Memorial Hospital08-01-2024 Telephone encounter Note * Telephone [...] Contreras RN January 18, 2024 4:49 PM [facility]08-01-2024 Miscellaneous Notes* Telephone Encounter - Samatnha Contreras RN - 01/18/2024 4:48 PM EDT [...] 18, 2024 4:49 PM documented in this encounterMagruder Memorial Hospital07-30-2024 Telephone encounter Note * Telephone Encounter - Benita Jansen LPN - 01/16/2024 1:48 PM EDT Rec'd and discarded. [facility]-30[facility] Miscellaneous Notes* Telephone Encounter - [...] legit. Analy Lawler RN documented in this encounterMagruder Memorial Hospital07-29-2024 Telephone encounter Note * Telephone Encounter - Analy Lawler RN - 01/15/2024 11:35 AM EDT Patient calls and states that if provider or office receives and faxes or calls regarding any medical supplies please do not reply. Patient has been receiving lots of calls from medical supply [employer]. Patient is not initiating those and does [...] if this is legit. Analy Lawler RN [facility]07-24-2024 Telephone encounter Note* Telephone Encounter - Celina Saenz LPN - 01/10/2024 1:57 PM EDT Received forms from [email or web address] requesting chart notes and patient's PCP to [...] needing any of these. Celina Saenz LPN [facility]07-24-2024 Miscellaneous Notes* Telephone Encounter - Celina Saenz LPN - 01/10/2024 1:57 PM EDT Received forms from [email or web address] requesting chart notes and patient's PCP to [...] these. Celina Saenz LPN documented in this encounterMagruder Memorial Hospital07-03-2024 Telephone encounter Note * Telephone [...] Marmolejo RN December 20, 2023 11:12 AM [facility]07-03-[facility]24 Miscellaneous Notes* Telephone Encounter - [...] 20, 2023 11:12 AM documented in this encounterMagruder Memorial Hospital06-07-2024 Telephone encounter Note * Telephone Encounter - Jose Hyde MD - 11/24/2023 6:17 PM EDT The following approved medication requests have been transmitted electronically. Requested Prescriptions Signed Prescriptions Disp Refills sertraline (ZOLOFT) 100 mg tablet 90 tablet 1 Sig: Take 1 tablet by mouth once daily. Authorizing Provider: JOSE HYDE MD [facility]06-07-2024 Miscellaneous Notes* Telephone Encounter - [...] Thank you. Perla Garcia. documented in this encounterMagruder Memorial Hospital06-07-2024 Telephone encounter Note * Telephone [...] 04/16/2024 Please advise. Thank you. Perla Garcia. [facility]04-30-2024 Telephone encounter Note* Telephone Encounter - Corinna Rodriguez LPN - 10/17/2023 4:31 PM EDT PATIENT NOTIFIED OF SAME. [facility]04-30-2024 Miscellaneous Notes* Telephone Encounter - Corinna Rodriguez LPN - 10/17/2023 4:31 PM EDT PATIENT NOTIFIED OF SAME. * Telephone Encounter - Romina Chao APRN.CNP - 10/17/2023 4:23 PM EDT Hello. Please call patient and let them know recent labs looked stable and without problems. No changes needed at this time and to keep next scheduled appointment. Thanks. documented in this encounterMagruder Memorial Hospital04-30-2024 Telephone encounter Note * Telephone Encounter - Romina Chao APRN.CNP - 10/17/2023 4:23 PM EDT Hello. Please call patient and let them know recent labs looked stable and without problems. No changes needed at this time and to keep next scheduled appointment. Thanks. [facility]04-29-20[facility] History of Present illness Narrative* [...] ACTIVE PROBLEM LIST Cad (Coronary Artery Disease), [place] Coronary Artery - 10/14/2010 (A priority) Comment: 04/1997 - [place] Stent - to RCA in [place] in [place]. She had jaw pain, shortness of breath [...] - 08/20/2009 Unspecified Cardiovascular Disease Comment: [place] Irritable Bowel Syndrome - 12/05/2007 Essential Hypertension Comment: Essential hypertension Mixed Hyperlipidemia Comment: Hyperlipidemia Bipolar Disorder, Unspecified ([facility]) Comment: Manic-depressive Acquired Hypothyroidism Comment: Hypothyroidism Diverticulosis [...] medications.. Romina Chao APRN-DEVIN documented in this encounterMagruder Memorial Hospital04-25-2024 Telephone encounter Note * Telephone [...] Please advise. Thank you. Delaney Disla RN. [facility]04-25-2024 Miscellaneous Notes* Telephone Encounter - [...] you. Delaney Disla RN. documented in this encounterMagruder Memorial Hospital04-02-2024 Miscellaneous Notes* Telephone Encounter - [...] you. Jessica Yung RN. documented in this encounterMagruder Memorial Hospital02-29-2024 Miscellaneous Notes* Telephone Encounter - Delaney Disla RN - 08/17/2023 2:52 PM EST Patient calling for refill for Seroquel. Advised to call pharmacy. Refill still available. Delaney Disla RN documented in this encounterMagruder Memorial Hospital11-13-2023 History of Present illness Narrative* Romina Chao APRN.INSTRUMENTATION TECH - 05/01/2023 1:49 PM EST SUBJECTIVE Robi [...] ACTIVE PROBLEM LIST Cad (Coronary Artery Disease), [place] Coronary Artery - 10/14/2010 (A priority) Comment: 04/1997 - [place] Stent - to RCA in [place] in [place]. She had jaw pain, shortness of breath [...] sided; Dr. Davison Pad (Peripheral Artery Disease) ([facility]) - 05/15/2013 Ibs (Irritable Bowel Syndrome) Acne [...] Mixed Hyperlipidemia Comment: Hyperlipidemia Bipolar Disorder, Unspecified ([facility]) Comment: Manic-depressive Acquired Hypothyroidism Comment: Hypothyroidism Diverticulosis [...] medication.. Romina Chao APRN-DEVIN documented in this encounterMagruder Memorial Hospital11-13-2023 Miscellaneous Notes* Letter - Coordinator, Mammography - 05/01/2023 11:15 AM EST May 01, 2023 PID: [id number] Robi Olivares [address] [place] [address] Dear Ms. Olivares, We are pleased to [...] report will be [facility] as part of your permanent medical record and are available for your continuing care. Thank you for allowing us to help in meeting your health care needs. Sincerely, Dr. Mohan Interpreting Radiologist [facility] (Normal over 40) documented in this encounterMagruder Memorial Hospital11-10-2023 History of Present illness Narrative* [...] 28, 2023 1:28 PM documented in this encounterMagruder Memorial Hospital11-01-2023 Miscellaneous Notes* Telephone Encounter - Delaney Disla RN - 04/19/2023 1:09 PM EDT Spoke with patient. Given message from provider's office. Patient verbalizes understanding. Transferred to library information technician for mammogram appointment. Delaney Disla RN * [...] placed. Analy Lawler RN documented in this encounterMagruder Memorial Hospital10-10-2023 Instructions* Patient Instructions* Jose Hyde MD - 03/28/2023 2:34 PM EDT Pantoprazole--may try stopping the medication by going every other day for 2 weeks then try stopping med. If have recurrence of reflux, resume medicaiton. Down the road can try lower dose 20mg daily to see of do not need the higher dose. documented in this encounterMagruder Memorial Hospital10-10-2023 History of Present illness Narrative* [...] Checked in 2016 CAD (coronary artery disease) [place] 1996 Diverticulosis of colon (without mention of [...] the date of the service which included [id number] patient care, completing clinical documentation, performing a medically appropriate examination, counseling and educating the patient/family/caregiver, and ordering medications, tests, or procedures. Jose Hyde MD * Jose Hyde MD - 03/28/2023 2:29 PM EDT This note was created using USEREADYter. Subjective Robi Olivares is a 72 year old female. Patient presents with: Established Patient: Follow up SUBJECTIVE: Robi Olivares is a 72 year old year old lady here today for follow up appointment for review of medical conditions. Stressors noted but doing okay. Fatigue noted Following with Dr. Fletcher. Noted that did not know why was getting pills from [employer]. Reviewed that did not call in July [...] Checked in 2016 CAD (coronary artery disease) GA 1996 Diverticulosis of colon (without mention of [...] Exam Assessment and Plan documented in this encounterMagruder Memorial Hospital08-09-2023 Miscellaneous Notes* Telephone Encounter - [...] and advise. Donya Hodge documented in this encounterMagruder Memorial Hospital07-06-2023 Miscellaneous Notes* Telephone Encounter - [...] advise, thank you. Zhanna documented in this encounterMagruder Memorial Hospital04-25-2023 Miscellaneous Notes* Telephone Encounter - Delicia Vivar - 10/11/2022 11:25 AM EDT Pt notified and verbalizes understanding. Delicia Vivar MA * Telephone Encounter - Delicia Vivar - 10/11/2022 11:23 AM EDT ----- Message from Zhanna Tracy APRN.INSTRUMENTATION TECH sent at 10/11/2022 11:17 AM EDT ----- Please call patient and notify her of stress testing results. Stress testing is without suggestion of ischemia. Normal EKG portion, normal nuclear portion, low risk scan. Thank you! documented in this encounterMagruder Memorial Hospital04-24-2023 History of Present illness Narrative* [...] Dina Bryant RN Reversal agent used:N/A LOT [id number] EXP 01/17/26 IV SITE: IV palced by nuclear tecnologist POST EXAM PIV STATUS: Discontinued by Marriage Therapist PATIENT DISCHARGED TO: Nuclear Medicine Department for post stress imaging A Diagnostic radioactive procedure has taken place, with no further precautions necessary other than routine body substance precautions. More information regarding radiation safety can be found usingthis link: [email or web address] SIGNATURE: Dina Bryant RN PATIENT NAME:Robi Olivares DATE: 10/10/22 TIME: 10:38 AM documented in this encounterMagruder Memorial Hospital04-03-2023 Miscellaneous Notes* Telephone Encounter - [...] patient. Nadege Acuna Pss documented in this encounterMagruder Memorial Hospital03-10-2023 Miscellaneous Notes* Telephone Encounter - [...] notify patient. Chitra Hodge documented in this encounterMagruder Memorial Hospital03-06-2023 Instructions* Patient Instructions* Zhanna Tracy APRN.INSTRUMENTATION TECH - 08/22/2022 3:35 PM EST Images from [...] the health of your heart. Developed by [employer]. Published by [employer]. Copyright 2014 [employer] and/or one of its subsidiaries. All rights reserved. documented in this encounterMagruder Memorial Hospital03-06-2023 History of Present illness Narrative* Zhanna Tracy APRN.CNP - 08/22/2022 3:16 PM EST Chief Complaint Patient presents with: Established Patient Follow-Up History of Present Illness: Robi Olivares is a 71 year old female who presents for routine follow up. She has a PMhx of ofCAD (s/p remote GA with PCI to RCA 1996 and RPL [...] Checked in 2017 CAD (coronary artery disease) GA 1996 Diverticulosis of colon (without mention of [...] W/WO PATCH GRAFT COMMON FEMORAL 08-15-13 RIGHT WEB PRODUCTION ASSISTANT TEAEC W/WO PATCH GRAFT ILIOFEMORAL Left 02-01-16 TOTAL ABDOMINAL HYSTERECT W/WO RMVL TUBE OVARY 1975 Hysterectomy, DOROTHY, BSO;Fibroids/infection VULVECTOMY SIMPLE PARTIAL 10/21/2010 Partial simple posterior vulvectomy and anterior vulvar biopsy FAMILY HISTORY Problem Relation Age of Onset Breast Cancer Mother Alzheimer's Disease Mother Heart Mother Colon Cancer Mother was diagnosed around late 60's Heart Father GA at 36 yo; when mom was 3 months other (bladder cancer) Brother Diabetes Brother Stroke Brother 1/2 brother Heart Brother diabetes; had 4 vessel CABG 09/2011; bladder cancer Coronary Artery Disease Paternal Uncle all 5 uncles had GA's in their early 40's Coronary Artery Disease [...] 10 mL INTRAVENOUS DIRECTED PRN Zhanna Tracy APRN.INSTRUMENTATION TECH Review of Systems Constitutional: Negative for chills, [...] stent Assessment and Plan: CAD -s/p remote GA with PCI to RCA 1996 and RPL [...] 22, 2022, 3:16 PM documented in this encounterMagruder Memorial Hospital02-07-2023 Miscellaneous Notes* Telephone Encounter - Benita Jansen LPN - 07/26/2022 4:01 PM EST Images from the original note were not included. Approved Prior authorization approved Payer: [facility] [phone] Approval Details Authorized from June 19, 2022 to July 26, 2023 Pt notified via my chart. * Telephone Encounter - Benita Jansen LPN - 07/26/2022 3:46 PM EST Per other encounter pt says [facility] needs PA. Electronic PA requested and completed. documented in this encounterMagruder Memorial Hospital02-07-2023 Miscellaneous Notes* Telephone Encounter - Lizzy Marmolejo RN - 07/26/2022 2:05 PM EST Patient calling with a few requests: Pt requesting her pantoprazole 20mg twice daily be changed to 40 mg once daily, with quantity of 30, if PCP agreeable. Pt states this will reduce cost for her with her current insurance plan. Send [facility]. Pended for review. Pt requesting dicyclomine 10 mg be sent to [facility] also-for reduced cost with her [...] her insurance is with [employer] Pharm[facility] Name: [facility] documented in this encounterMagruder Memorial Hospital01-11-2023 History of Present illness Narrative* Jose Hyde MD - 06/29/2022 6:11 PM EST This note was created using Savareeriter. Subjective Robi Olivares is a 71 year [...] capsules area helping. On [employer] now with [facility] for meds. PAST MEDICAL HISTORY Diagnosis Date Acute gastritis without mention of hemorrhage Acute myocardial infarction of other specified sites, episode of care unspecified Myocardial Infarction--DR WHITE Adenomatous colon polyp TA on Jun 2015 colonoscopy (Dr. Brown) Anemia Bipolar disorder, unspecified (HCC) Manic-depressive Blood type O+ Checked in 2016 CAD (coronary artery disease) [place] 1996 Diverticulosis of colon (without mention of [...] Diagnosis ICD-10-CM 1. Coronary artery disease involving rapp[place]annock coronary artery of rapp[place]annock heart without angina [id number] clopidogrel (PLAVIX) 75 mg tablet nitroglycerin sublingual [...] which included preparing to see the patient, [id number] patient care, completing clinical documentation, performing a medically appropriate examination, counseling and educating the patient/family/caregiver, and ordering medications, tests,or procedures. Jose Hyde MD documented in this encounterMagruder Memorial Hospital12-02-2022 Miscellaneous Notes* Telephone Encounter - Analy Lawler RN - 05/20/2022 11:20 AM EST Last Office Visit: 12/06/2021 Future Office Visit: 06/29/2022 Requested Prescriptions Pending Prescriptions Disp Refills loperamide (IMODIUM) 2 mg cap(s) 100 capsule 5 Sig: Take one every morning. May repeat as needed. Date of Last Labs: 01/31/2022 documented in this encounterMagruder Memorial Hospital10-27-2022 Miscellaneous Notes* Letter - Mammography Coordinator - 04/14/2022 11:24 AM EDT April 14, 2022 PID: [id number] Robi Olivares [address] [place] [address] Dear Ms. Olivares, We are pleased to [...] report will be [facility] as part of your permanent medical record and are available for your continuing care. Thank you for allowing us to help in meeting your health care needs. Sincerely, Dr. Pyle Interpreting Radiologist [facility] (Normal over 40) documented in this encounterMagruder Memorial Hospital08-30-2022 Miscellaneous Notes* Telephone Encounter - [...] notify patient. Mary Hodge documented in this encounterMagruder Memorial Hospital08-15-2022 Instructions* Patient Instructions* Zhanna Tracy APRN.INSTRUMENTATION TECH - 01/31/2022 3:27 PM EDT Images from [...] into your blood vessels to show the omntana of the arteries and any blockage CT [...] the health of your heart. Developed by [employer]. Published by [employer]. Copyright 2014 [employer] and/or one of its subsidiaries. All rights reserved. documented in this encounterMagruder Memorial Hospital08-15-2022 History of Present illness Narrative* Zhanna Tracy APRN.CNP - 01/31/2022 3:00 PM EDT Chief Complaint Patient presents with: Follow Up: 6 month History of Present Illness: Robi Olivares is a 71 year old female who presents for routine follow up. 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 TEAEC W/WO PATCH GRAFT ILIOFEMORAL Left 02-01-16 TOTAL ABDOMINAL HYSTERECT W/WO RMVL TUBE OVARY 1975 Hysterectomy, DOROTHY, BSO;Fibroids/infection VULVECTOMY SIMPLE PARTIAL 10/21/2010 Partial simple posterior vulvectomy and anterior vulvar biopsy FAMILY HISTORY Problem Relation Age of Onset Breast Cancer Mother Alzheimer's Disease Mother Heart Mother Colon Cancer Mother was diagnosed around late 60's Heart Father [place] at 36 yo; when mom was 3 months other (bladder cancer) Brother Diabetes Brother Stroke Brother 1/2 brother Heart Brother diabetes; had 4 vessel CABG 09/2011; bladder cancer Coronary Artery Disease Paternal Uncle all 5 uncles had GA's in their early 40's Coronary Artery Disease [...] injection (DEFINITY) INTRAVENOUS DIRECTED PRN Zhanna Tracy, MICROBIOLOGY DIRECTOR.INSTRUMENTATION TECH sodium chloride 0.9 % (flush) 10 mL (BD POSIFLUSH) 10 mL INTRAVENOUS DIRECTED PRN Zhanna Tracy, MICROBIOLOGY DIRECTOR.INSTRUMENTATION TECH Review of Systems Constitutional: Negative for chills, [...] stent Assessment and Plan: CAD -s/p remote [place] with PCI to RCA 1996 and RPL [...] 31, 2022, 1:49 PM documented in this encounterMagruder Memorial Hospital06-03-2022 Miscellaneous Notes* Telephone Encounter - [...] notify patient. Chitra Hodge documented in this encounterMagruder Memorial Hospital05-17-2022 Miscellaneous Notes* Telephone Encounter - Franchesca Head LPN - 11/02/2021 10:[address] Scott office, was transferred to scheduling, patient has appointment to see Dr Steven Scott on 01/24/22 at 9:00 am. * Telephone Encounter - Franchesca Head LPN - 11/01/2021 1:40 PM EDT Patient was to see Dr Steven Scott, at [facility], per telephone note 10/16/21. Needed order placed for referral and and to be scheduled. Patient has appointment tomorrow 11/02/21, for pain at times on left side, with Dr Plascencia, documented in this encounterMagruder Memorial Hospital05-03-2022 Miscellaneous Notes* Telephone Encounter - Franchesca Head LPN - 10/19/2021 4:50 PM EDT Please let the patient know that I contacted the hernia specialist at [facility] and they agree that given her complicated past and open procedure would be the preference. I also feel that the type of procedure that she requires called a open TAR will be better performed by the experts at [facility]. I will forward my note to Dr. Steven Scott and his office should contact the patient for follow-up. Per Dr Plascencia Called patient updated on above note from Dr Thais Head LPN * Telephone Encounter - Marshall Plascencia MD - 10/19/2021 4:22 PM EDT Please let the patient know that I contacted the hernia specialist at [facility] and they agree that given her complicated past and open procedure would be the preference. I also feel that the type of procedure that she requires called a open TAR will be better performed by the experts at [facility]. I will forward my note to Dr. Steven Scott and his office should contact the patient for follow-up. documented in this encounterMagruder Memorial Hospital04-25-2022 History of Present illness Narrative* [...] 11, 2021 4:01 PM documented in this encounterMagruder Memorial Hospital04-08-2022 Miscellaneous Notes* Telephone Encounter - [...] you. Antwon Dennison RN [facility] Miscellaneous Notes* Telephone Encounter - Katrin Mata RN - 09/10/2021 8:13 AM EDT Pt notified of below results. Verbalized understanding. No further questions or concerns. * Telephone Encounter - Zhanna Villasenor LPN - 09/09/2021 2:01 PM EDT Left message for to call [facility] for test results. [facility] phone number provided. Zhanna Villasenor LPN * Telephone Encounter - Zhanna Villasenor LPN - 09/09/2021 2:00 PM EDT ----- Message from Isabela Dupree APRN.INSTRUMENTATION TECH sent at 09/09/2021 2:00 PM EDT ----- Please call the patient and report echo results revealed preserved LV Function 69% and stable mild LVH. Patient has mild MR. Recommend continue current medical therapy. Thanks, Isabela Dupree APRN.INSTRUMENTATION TECH documented in this encounterMag[facility] History of Past illness Narrative* Problem Noted Date Resolved Date Iron deficiency anemia due to chronic blood loss 06/24/2015 06/24/2015 Family history of colon cancer 06/24/2015 0 06/24/2015 Acute myocardial infarction of other specified sites, episode of care unspecified 09/12/2016 Overview: Myocardial Infarction documented as of this encounter (statuses as of 09/17/2021) [facility] Narrative* Problem Noted Date Resolved Date Iron deficiency anemia due to chronic blood loss 06/24/2015 06/24/2015 Family history of colon cancer 06/24/2015 0 06/24/2015 Acute myocardial infarction of other specified sites, episode of care unspecified 09/12/2016 Overview: Myocardial Infarction documented as of this encounter (statuses as of 09/24/2021) [facility] illness Narrative* Problem Noted Date Resolved Date Iron deficiency anemia due to chronic blood loss 06/24/2015 06/24/2015 Family history of colon cancer 06/24/2015 0 06/24/2015 Acute myocardial infarction of other specified sites, episode of care unspecified 09/12/2016 Overview: Myocardial Infarction documented as of this encounter (statuses as of 10/12/2021) [facility] Narrative* Problem Noted Date Resolved Date Iron deficiency anemia due to chronic blood loss 06/24/2015 06/24/2015 Family history of colon cancer 06/24/2015 0 06/24/2015 Acute myocardial infarction of other specified sites, episode of care unspecified 09/12/2016 Overview: Myocardial Infarction documented as of this encounter (statuses as of 10/12/2021) [facility] Narrative* Problem Noted Date Resolved Date Iron deficiency anemia due to chronic blood loss 06/24/2015 06/24/2015 Family history of colon cancer 06/24/2015 0 06/24/2015 Acute myocardial infarction of other specified sites, episode of care unspecified 09/12/2016 Overview: Myocardial Infarction documented as of this encounter (statuses as of 10/19/2021) [facility] Narrative* Problem Noted Date Resolved Date Iron deficiency anemia due to chronic blood loss 06/24/2015 06/24/2015 Family history of colon cancer 06/24/2015 0 06/24/2015 Acute myocardial infarction of other specified sites, episode of care unspecified 09/12/2016 Overview: Myocardial Infarction documented as of this encounter (statuses as of 11/19/2021) [facility] Narrative* Problem Noted Date Resolved Date Iron deficiency anemia due to chronic blood loss 06/24/2015 06/24/2015 Family history of colon cancer 06/24/2015 0 06/24/2015 Acute myocardial infarction of other specified sites, episode of care unspecified 09/12/2016 Overview: Myocardial Infarction documented as of this encounter (statuses as of 2021) [facility] Narrative* Problem Noted Date Resolved Date Iron deficiency anemia due to chronic blood loss 06/24/2015 06/24/2015 Family history of colon cancer 06/24/2015 0 06/24/2015 Acute myocardial infarction of other specified sites, episode of care unspecified 09/12/2016 Overview: Myocardial Infarction documented as of this encounter (statuses as of 02/01/2022) [facility] Narrative* Problem Noted Date Resolved Date Iron deficiency anemia due to chronic blood loss 06/24/2015 06/24/2015 Family history of colon cancer 06/24/2015 0 06/24/2015 Acute myocardial infarction of other specified sites, episode of care unspecified 09/12/2016 Overview: Myocardial Infarction documented as of this encounter (statuses as of 02/15/2022) [place] [id number] History of Past illness Narrative* Problem Noted Date Resolved Date Iron deficiency anemia due to chronic blood loss 06/24/2015 06/24/2015 Family history of colon cancer 06/24/2015 0 06/24/2015 Acute myocardial infarction of other specified sites, episode of care unspecified 09/12/2016 Overview: Myocardial Infarction documented as of this encounter (statuses as of 04/04/2022) [facility] Narrative* Problem Noted Date Resolved Date Iron deficiency anemia due to chronic blood loss 06/24/2015 06/24/2015 Family history of colon cancer 06/24/2015 0 06/24/2015 Acute myocardial infarction of other specified sites, episode of care unspecified 09/12/2016 Overview: Myocardial Infarction documented as of this encounter (statuses as of 04/16/2022) [facility] Narrative* Problem Noted Date Resolved Date Iron deficiency anemia due to chronic blood loss 06/24/2015 06/24/2015 Family history of colon cancer 06/24/2015 0 06/24/2015 Acute myocardial infarction of other specified sites, episode of care unspecified 09/12/2016 Overview: Myocardial Infarction documented as of this encounter (statuses as of 05/20/2022) [facility] Narrative* Problem Noted Date Resolved Date Iron deficiency anemia due to chronic blood loss 06/24/2015 06/24/2015 Family history of colon cancer 06/24/2015 0 06/24/2015 Acute myocardial infarction of other specified sites, episode of care unspecified 09/12/2016 Overview: Myocardial Infarction documented as of this encounter (statuses as of 07/26/2022) [facility] Narrative* Problem Noted Date Resolved Date Iron deficiency anemia due to chronic blood loss 06/24/2015 06/24/2015 Family history of colon cancer 06/24/2015 0 06/24/2015 Acute myocardial infarction of other specified sites, episode of care unspecified 09/12/2016 Overview: Myocardial Infarction documented as of this encounter (statuses as of 07/27/2022) [facility] Narrative* Problem Noted Date Resolved Date Iron deficiency anemia due to chronic blood loss 06/24/2015 06/24/2015 Family history of colon cancer 06/24/2015 0 06/24/2015 Acute myocardial infarction of other specified sites, episode of care unspecified 09/12/2016 Overview: Myocardial Infarction documented as of this encounter (statuses as of 07/29/2022) [facility] Narrative* Problem Noted Date Resolved Date Iron deficiency anemia due to chronic blood loss 06/24/2015 06/24/2015 Family history of colon cancer 06/24/2015 0 06/24/2015 Acute myocardial infarction of other specified sites, episode of care unspecified 09/12/2016 Overview: Myocardial Infarction documented as of this encounter (statuses as of 08/23/2022) [facility] Narrative* Problem Noted Date Resolved Date Iron deficiency anemia due to chronic blood loss 06/24/2015 06/24/2015 Family history of colon cancer 06/24/2015 0 06/24/2015 Acute myocardial infarction of other specified sites, episode of care unspecified 09/12/2016 Overview: Myocardial Infarction documented as of this encounter (statuses as of 08/26/2022) [facility] Narrative* Problem Noted Date Resolved Date Iron deficiency anemia due to chronic blood loss 06/24/2015 06/24/2015 Family history of colon cancer 06/24/2015 0 06/24/2015 Acute myocardial infarction of other specified sites, episode of care unspecified 09/12/2016 Overview: Myocardial Infarction documented as of this encounter (statuses as of 09/19/2022) [facility] Narrative* Problem Noted Date Resolved Date Iron deficiency anemia due to chronic blood loss 06/24/2015 06/24/2015 Family history of colon cancer 06/24/2015 0 06/24/2015 Acute myocardial infarction of other specified sites, episode of care unspecified 09/12/2016 Overview: Myocardial Infarction documented as of this encounter (statuses as of 10/11/2022) [facility] Narrative* Problem Noted Date Resolved Date Iron deficiency anemia due to chronic blood loss 06/24/2015 06/24/2015 Family history of colon cancer 06/24/2015 0 06/24/2015 Acute myocardial infarction of other specified sites, episode of care unspecified 09/12/2016 Overview: Myocardial Infarction documented as of this encounter (statuses as of 10/12/2022) [facility] Narrative* Problem Noted Date Resolved Date Iron deficiency anemia due to chronic blood loss 06/24/2015 06/24/2015 Family history of colon cancer 06/24/2015 0 06/24/2015 Acute myocardial infarction of other specified sites, episode of care unspecified 09/12/2016 Overview: Myocardial Infarction documented as of this encounter (statuses as of 12/22/2022) [facility] Narrative* Problem Noted Date Diagnosed Date Resolved Date Iron deficiency anemia due t o chronic blood loss 06/24/2015 06/24/2015 Family history of colon cancer 06/24/2015 06/24/2015 Acute myocardial infarction of other specified sites, episode of care unspecified 09/12/2016 Overview: Myocardial Infarction documented as of this encounter (statuses as of 01/25/2023) [facility] Narrative* Problem Noted Date Diagnosed Date Resolved Date Iron deficiency anemia due t o chronic blood loss 06/24/2015 06/24/2015 Family history of colon cancer 06/24/2015 06/24/2015 Acute myocardial infarction of other specified sites, episode of care unspecified 09/12/2016 Overview: Myocardial Infarction documented as of this encounter (statuses as of 04/19/2023) [facility] Narrative* Problem Noted Date Diagnosed Date Resolved Date Iron deficiency anemia due t o chronic blood loss 06/24/2015 06/24/2015 Family history of colon cancer 06/24/2015 06/24/2015 Acute myocardial infarction of other specified sites, episode of care unspecified 09/12/2016 Overview: Myocardial Infarction documented as of this encounter (statuses as of 04/29/2023) [facility] Narrative* Problem Noted Date Diagnosed Date Resolved Date Iron deficiency anemia due t o chronic blood loss 06/24/2015 06/24/2015 Family history of colon cancer 06/24/2015 06/24/2015 Acute myocardial infarction of other specified sites, episode of care unspecified 09/12/2016 Overview: Myocardial Infarction documented as of this encounter (statuses as of 04/29/2023) [facility] Narrative* Problem Noted Date Diagnosed Date Resolved Date Iron deficiency anemia due t o chronic blood loss 06/24/2015 06/24/2015 Family history of colon cancer 06/24/2015 06/24/2015 Acute myocardial infarction of other specified sites, episode of care unspecified 09/12/2016 Overview: Myocardial Infarction documented as of this encounter (statuses as of 05/02/2023) [facility] Narrative* Problem Noted Date Diagnosed Date Resolved Date Iron deficiency anemia due t o chronic blood loss 06/24/2015 06/24/2015 Family history of colon cancer 06/24/2015 06/24/2015 Acute myocardial infarction of other specified sites, episode of care unspecified 09/12/2016 Overview: Myocardial Infarction documented as of this encounter (statuses as of 05/03/2023) [facility] Narrative* Problem Noted Date Diagnosed Date Resolved Date Iron deficiency anemia due t o chronic blood loss 06/24/2015 06/24/2015 Family history of colon cancer 06/24/2015 06/24/2015 Acute myocardial infarction of other specified sites, episode of care unspecified 09/12/2016 Overview: Myocardial Infarction documented as of this encounter (statuses as of 08/18/2023) [facility] Narrative* Problem Noted Date Diagnosed Date Resolved Date Iron deficiency anemia due t o chronic blood loss 06/24/2015 06/24/2015 Family history of colon cancer 06/24/2015 06/24/2015 Acute myocardial infarction of other specified sites, episode of care unspecified 09/12/2016 Overview: Myocardial Infarction documented as of this encounter (statuses as of 09/19/2023) [facility] Author Monico Patterson [facility] Note Date/Time October 24, 2024 3:20pm [facility] Medical Records Department [address] [place] [address] Discharge Summary 10/24/24 1409 MR#: [id number] Acct: [id number] Name: ROBI OLIVARES Rep #:[id number] : 1950 73 From: Monico Suggs PCP: Dr. Jose Hyde MD Status:AD IN Location: [place] [address]- Providers Date of Admission: 10/21/24 Date of Discharge: 10/24/24 Primary Care Physician: Dr. Jose Hyde MD Consultations 10/21/24 20:59 Consult: Gastroenterology Routine Consulting Provider: [facility] Reason for Consult: Diarrhea with Melena [...] outpatient follow-up with GI. 4. CAD; s/p GA with subsequent stent (2012) on prn SL [...] 0.2, Sm ([place]) Antibody <0.2, FLEXOGRAPHIC PRESS OPERATOR Antibody <0.2, Scl-70 Scleroderma Ab <0.2, Double [...] Neut % (Auto) 61.5, Lymph % (Auto) 24.0,Isabella % (Auto) 13.0 H, Eos % (Auto) [...] Self Care Charges/Coding Visit Charges Inpatient E&M: 99446 Disch Hosp >30min 10/24/24 1409 <Electronically signed by Monico Patterson MD> Cosigner Signature (if applicable): CC: Dr. Jose Hyde MD; Dr. Monico Patterson MD~ Signed [facility] Work Phone: Evaluation note* Diagnosis Abdominal mass, unspecified abdominal location documented in this encounter [facility] note* Diagnosis Coronary artery disease involving [place] coronary artery of [place] heart without angina pectoris documented in this encounter [facility] note* Diagnosis Incisional hernia, without obstruction or gangrene- Primary Incisional hernia without mention of obstruction or gangrene documented in this encounter [facility] note* Diagnosis Coronary artery disease involving [place] coronary artery of [place] heart without angina pectoris- Primary Mixed hyperlipidemia Essential hypertension Unspecified essential hypertension Chronic diastolic CHF (congestive heart failure) (HCC) Chronic diastolic heart failure Mitral valve insufficiency, unspecified etiology Tobacco use Tobacco use disorder [facility]* Diagnosis Acquired hypothyroidism Unspecified hypothyroidism documented in this encounter [facility] note* Diagnosis Encounter for screening mammogram for breast cancer [facility]* Diagnosis Loose stools Abnormal feces [facility]* Diagnosis Diarrhea IRRITABLE COLON Irritable bowel syndrome [facility] Diagnosis Coronary artery disease involving [place] coronary artery of [place] heart without angina pectoris Recurrent cold sores Herpes simplex without mention of complication Loose stools Abnormal feces Diarrhea IRRITABLE COLON Irritable bowel syndrome [facility] Diagnosis Coronary artery disease involving [place] coronary artery of [place] heart with angina pectoris (HCC)- Primary Coronary artery disease involving [place] coronary artery of [place] heart without angina pectoris Mixed hyperlipidemia Essential hypertension Unspecified essential hypertension Chronic diastolic CHF (congestive heart failure) (HCC) Chronic diastolic heart failure PAD (peripheral artery disease) (HCC) Peripheral vascular disease, unspecified Tobacco use Tobacco use disorder documented in this encounter [facility] note* Diagnosis Screening for ischemic heart disease- Primary documented in this encounter [facility] noteNo assessment information availableWMount St. [facility] Work Phone: [facility] note* Diagnosis Encounter for screening mammogram for breast cancer- Primary documented in this encounter [facility] note* Diagnosis Essential hypertension- Primary Unspecified essential hypertension Vitamin D deficiency Unspecified vitamin D deficiency Elevated fasting glucose Impaired fasting glucose Mixed hyperlipidemia Acquired hypothyroidism Unspecified hypothyroidism Bipolar affective disorder, remission status unspecified ([facility]) documented in this encounter [facility] note* Diagnosis Encounter for screening mammogram for breast cancer documented in this encounter [facility] note* Diagnosis Weight loss- Primary Loss of weight Anxiety Anxiety state, unspecified Stress at home Unspecified family circumstance documented in this encounter [facility] note* Diagnosis Acquired hypothyroidism Unspecified hypothyroidism Loose stools Abnormal feces documented in this encounter [facility] note* Diagnosis Chronic diastolic CHF (congestive heart failure) ([facility])- Primary Chronic diastolic heart failure Acquired hypothyroidism Unspecified hypothyroidism Anxiety Anxiety state, unspecified Stress at home Unspecified family circumstance Weight loss Loss of weight Mixed hyperlipidemia Iron deficiency anemia, unspecified iron deficiency anemia type Vitamin D deficiency Unspecified vitamin D deficiency Encounter for therapeutic drug monitoring documented in this encounter [facility] note* Diagnosis Anxiety Anxiety state, unspecified Weight loss Loss of weight documented in this encounter [facility] note* Diagnosis Acquired hypothyroidism Unspecified hypothyroidism Loose stools Abnormal feces documented in this encounter [facility] note* Diagnosis Memory deficit- Primary Memory loss Persistent depressive disorder History of bipolar disorder Personal history of affective disorder Essential hypertension Unspecified essential hypertension Encounter for screening mammogram for breast cancer Encounter for immunization Need for other specified prophylactic vaccination against single bacterial disease documented in this encounter [facility] note* Diagnosis Memory problem- Primary Memory loss documented in this encounter [facility] note* Diagnosis Anxiety reaction- Primary Anxiety state, unspecified Hx of blurred vision Personal history of other disorders of nervous system and sense organs Memory impairment Memory loss Vitamin D deficiency Unspecified vitamin D deficiency IFG (impaired fasting glucose) Impaired fasting glucose Encounter for long-term current use of medication Mixed hyperlipidemia Essential hypertension Unspecified essential hypertension Acquired hypothyroidism Unspecified hypothyroidism Coronary artery disease involving [place] coronary artery of [place] heart without angina pectoris Anxiety Anxiety state, unspecified Weight loss Loss of weight Hypokalemia Hypopotassemia Persistent depressive disorder 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 note* Diagnosis Encounter for screening mammogram for breast cancer documented in this encounter [facility] note* Diagnosis COVID-19- Primary documented in this encounter [facility] note* Diagnosis Bipolar depression (HCC)- Primary Bipolar I disorder, most recent episode (or current) depressed, unspecified Memory deficit Memory loss Cognitive impairment, mild, so stated Mild cognitive impairment, so stated Weight loss Loss of weight documented in this encounter [facility] note* Diagnosis Loose stools Abnormal feces documented in this encounter [facility] note* Diagnosis Memory impairment- Primary Memory loss History of bipolar disorder Personal history of affective disorder Persistent depressive disorder Essential hypertension Unspecified essential hypertension Mixed hyperlipidemia Acquired hypothyroidism Unspecified hypothyroidism CAD (coronary artery disease), [place] coronary artery Coronary atherosclerosis of [place] coronary artery Recurrent cold sores Herpes simplex without mention of complication Rash and nonspecific skin eruption Rash and other nonspecific skin eruption documented in this encounter [facility] note* Diagnosis Procedure not carried out- Primary Procedure not carried out for other reasons documented in this encounter [facility] note* Diagnosis Persistent depressive disorder- Primary Anxiety Anxiety state, unspecified History of bipolar disorder Personal history of affective disorder Chronic diarrhea Diarrhea Weight loss, unintentional Loss of weight Generalized pain Marital stress Counseling for marital and partner problems, unspecified documented in this encounter [facility] note* Diagnosis Chronic diarrhea- Primary Diarrhea Irritable bowel syndrome without diarrhea Irritable bowel syndrome Biliary stricture (HCC) Obstruction of bile duct [facility] Diagnostic Procedure Only (Routine) - Pending Review Specialty Diagnoses / Procedures Referred By Velma villalta Referred To Contact [facility] Diagnoses Encounter for screening mammogram for breast cancer Procedures JG SCREENING SCREENING MAMMOGRAPHY BI 2-VIEW BREAST INC CAD Jose Hyde MD [address] [place] [address] [facility] [address] [place] [address] Referral ID Status Reason Start Date Expiration Date Visits Requested Visits Authorized [id number] Pending Review Auto-Generat ed Referral 2 04/29/[address] [facility] Diagnostic Procedure Only (Routine) - Authorized Specialty Diagnoses / Procedures Referred By Velma villalta Referred To Contact [facility] Diagnoses Coronary artery disease involving [place] coronary artery of [place] heart with angina pectoris (HCC) Procedures NM CARDIAC PERF STRESS/PHARM MYOCARDIAL SPECT MULTIPLE STUDIES Zhanna Tracy APRN.CNP [address] [place] [address] Fax: [facility] [address] [place] [address] Referral ID Status Reason Start Date Expiration Date Visits Requested Visits Authorized [id number] Authorized Auto-Generat ed Referral 08/22/2022 09/21/2023 1 1 * Outpatient Procedure (Routine) - Closed Specialty Diagnoses / Procedures Referred By Velma villalta Ref[facility] Diagnoses Coronary artery disease involving [place] coronary artery of [place] heart without angina pectoris Mixed hyperlipidemia Essential hypertension Procedures ECG COMPLETE ECG ROUTINE ECG W/LEAST 12 LDS W/I&R Zhanna Tracy APRN.CNP [address] [place] [address] [facility] [address] [place] [address] Referral ID Status Reason Start Date Expiration Date V isits Requested Visits Authorized [id number] Closed Auto-Generate d Referral 08/18/2022 08/18/2023 1 1 [facility] for referral (narrative)* Diagnostic Procedure Only (Routine) - Authorized Specialty Diagnoses / Procedures Referred By Velma villalta Referred To Contact [facility] Diagnoses Encounter for screening mammogram for breast cancer Procedures JG SCREENING SCREENING MAMMOGRAPHY BI 2-VIEW BREAST INC CAD Romina Chao APRN.CNP [address] [place] [address] [facility] [address] [place] [address] Referral ID Status Reason Start Date Expiration Date Visits Requested Visits Authorized [id number] Authorized Auto-Generat ed Referral 04/19/2023 05/17/2024 1 1 [facility] for visit Narrative* Diagnostic Procedure Only (Routine) - Closed Specialty Diagnoses / Procedures Referred By Velma villalta Referred To Contact [facility]AL [facility] Diagnoses Coronary artery disease involving [place] coronary artery of [place] heart with angina pectoris (HCC) Procedures NM CARDIAC PERF STRESS/PHARM MYOCARDIAL SPECT MULTIPLE STUDIES Zhanna Tracy APRN.INSTRUMENTATION TECH [address] [place] [address] [facility] [address] [place] [address] Referral ID Status Reason Start Date Expiration Date V isits Requested Visits Authorized [id number] Closed Auto-Generate d Referral 08/22/2022 09/21/2023 1 1 [facility] for visit Narrative* Diagnostic Procedure Only (Routine) - Closed Specialty Diagnoses / Procedures Referred By Velma villalta Referred To Contact [facility] Diagnoses Encounter for screening mammogram for breast cancer Procedures JG SCREENING SCREENING MAMMOGRAPHY BI 2-VIEW BREAST INC CAD Romina Chao MICROBIOLOGY DIRECTOR.INSTRUMENTATION TECH [address] [id number] [facility] [address] [place] [address] Referral ID Status Reason Start Date Expiration Date V isits Requested Visits Authorized [id number] Closed Auto-Generate d Referral 04/19/2023 05/17/2024 1 1 [facility] for visit Narrative* Diagnostic Procedure Only (Routine) - Closed Specialty Diagnoses / Procedures Referred By Velma villalta Referred To Contact [facility] Diagnoses Encounter for screening mammogram for breast cancer Procedures JG SCREENING W HARJIT SCREENING DIGITAL BREAST TOMOSYNTHESIS BI SCREENING MAMMOGRAPHY BI 2-VIEW BREAST INC CAD Vlad Pyle, MICROBIOLOGY DIRECTOR.SEISMOMETER OPERATOR [address] [place] [address] [facility] [address] [place] [address] Referral ID Status Reason Start Date Expiration Date V isits Requested Visits Authorized [id number] Closed Auto-Generate d Referral 04/29/2024 05/29/2025 1 1 [facility] Summary Purpose Family History No Family History Records Found Relationship Condition Age at Onset Recorded Date/T rodney brother Cerebrovascular accident (CVA) Unknown Cardiac disease Unknown Malignant neoplasm Unknown Advance Directives No Advanced Directives Records FoundDocuments on File Type Date Recorded Patient Acid Crane Operator Expl anation Advance Directive(s) Advance Directive(s) 03/19/2020 10:10 AM Advance Directive(s) 10/14/2010 5:23 PM Documents on File Type Date Recorded Patient Acid Crane Operator Expl anation Advance Directive(s) Advance Directive(s) 03/19/2020 10:10 AM Advance Directive(s) 10/14/2010 5:23 PM Documents on File Type Date Recorded Patient Acid Crane Operator Expl anation Advance Directive(s) 10/14/2010 5:23 PM Documents on File Type Date Recorded Patient Acid Crane Operator Expl anation Advance Directive(s) 10/14/2010 5:23 PM Advance Directive Response Recorded Date/ Time Advance Directives Yes February 01, 2016 11:40am Living Will Yes January 31, 201 6 11:40am Power of Windows Laptop Technician Yes January 31, 016 11:40am Advance Directive Response Recorded Date/ Time Do you have a Healthcare Pow er of Windows Laptop Technician? No October 15, 2024 1:36pm Do you have a Healthcare Pow er of Windows Laptop Technician? Yes October 21, 2024 9:00pm Name of Medical Power of Windows Laptop Technician Florencio Olivares- October 21, 2024 9:00pm Do you have a Healthcare Pow er of Windows Laptop Technician? No October 15, 2024 8:27pm Advance Directives Yes February 01, 2016 11:40am Reason for Referral Specialty Diagnoses / Procedures Referred By Velma villalta Referred To Contact CT IMAGING Diagnoses Abdominal mass, unspecified abdominal location Procedures CT ABD/PEL WO IVCON CT ABD & PELVIS W/O CONTRAST Marshall Plascencia MD [address] [facility] [place] [address] Ct Imaging Referral ID Status Reason Start Date Expiration Date V isits Requested Visits Authorized [id number] Closed Auto-Generate d Referral 10/05/2021 11/04/2022 1 1 Specialty Diagnoses / Procedures Referred By Velma villalta Referred To Contact General Surgery Diagnoses Incisional hernia, without obstruction or gangrene Procedures CONSULT TO GENERAL SURGERY OFFICE/OUTPATIENT [facility] 60-74 MINUTES Marshall Plascencia MD [address] [place] [address] Steven Scott MD [address] [place] [address] Referral ID Status Reason Start Date Expiration Date Visits Requested Visits Authorized [id number] Authorized PCP Requested Referral 11/01/2021 11/01/2022 1 1 Specialty Diagnoses / Procedures Referred By Contac t Referred To Contact Diagnoses Diarrhea Irritable bowel syndrome Vlad Pyle, ALEJANDRA.SEISMOMETER OPERATOR [address] [place] [address] Referral ID Status Reason Start Date Expiration Date V isits Requested Visits Authorized [id number] Authorized 06/19/2022 07/26/2023 1 1 Specialty Diagnoses / Procedures Referred By Contac t Referred To Contact Psychology Diagnoses Persistent depressive disorder History of bipolar disorder Procedures CONSULT TO PSYCHOLOGY OFFICE/OUTPATIENT [facility] 60 MINUTES Vlad Pyle, MICROBIOLOGY DIRECTOR.SEISMOMETER OPERATOR [address] [place] [address] Referral ID Status Reason Start Date Expiration Date Visits Requested Visits Authorized [id number] Pending Review PCP Requested Referral 4 04/29/2025 [...] TST EA ADDL 30 MIN Vlad Pyle, MICROBIOLOGY DIRECTOR.SEISMOMETER OPERATOR [address] [place] [address] Referral ID Status Reason Start Date Expiration Date Visits Requested Visits Authorized [id number] Ref Not Required PCP Requested Referral 4 04/29/2025 1 3 Specialty Diagnoses / Procedures Referred By Contac t Referred To Contact Gerontology Diagnoses Memory deficit Procedures CONSULT TO GERIATRICS OFFICE/OUTPATIENT [facility] 60 MINUTES Vlad Pyle, MICROBIOLOGY DIRECTOR.SEISMOMETER OPERATOR [address] [place] [address] Referral ID Status Reason Start Date Expiration Date Visits Requested Visits Authorized [id number] Authorized PCP Requested Referral 4 04/29/2025 1 1 Specialty Diagnoses / Procedures Referred By Contac t Referred To Contact [facility] Diagnoses Encounter for screening mammogram for breast cancer Procedures JG SCREENING W HARJIT SCREENING DIGITAL BREAST TOMOSYNTHESIS BI SCREENING MAMMOGRAPHY BI 2-VIEW BREAST INC CAD Pyle, Vlad, MICROBIOLOGY DIRECTOR.SEISMOMETER OPERATOR [address] [place] [address] [facility] [address] [place] [address] Referral ID Status Reason Start Date Expiration Date Visits Requested Visits Authorized [id number] Authorized Auto-Generat ed Referral 4 05/29/2025 1 [...] TST EA ADDL 30 MIN Vlad Pyle, MICROBIOLOGY DIRECTOR.SEISMOMETER OPERATOR [address] [place] [address] Referral ID Status Reason Start Date Expiration Date Visits Requested Visits Authorized [id number] Ref Not Required PCP Requested Referral 4 04/29/2025 1 3 Specialty Diagnoses / Procedures Referred By Contac t Referred To Contact MR IMAGING Diagnoses Cognitive impairment, mild, so stated Procedures MRI BRAIN W QUANT WO IVCON MRI BRAIN BRAIN STEM W/O CONTRAST MATERIAL Mehdi Rick MD [address] [place] [address] [place] [address] Referral ID Status Reason Start Date Expiration Date Visits Requested Visits Authorized [id number] Authorized Auto-Generat ed Referral 4 07/05/2025 1 1 Specialty Diagnoses / Procedures Referred By Contac t Referred To Contact Diagnoses Bipolar depression (HCC) Procedures CONSULT TO [facility] ADULT OFFICE/OUTPATIENT [facility] 60 MINUTES Mehdi Rick MD [address] [place] [address] Referral ID Status Reason Start Date Expiration Date V isits Requested Visits Authorized [id number] Pending Review 06/05/2024 09/03/2024 1 1 Chief [...] section and content) DATE CREATED AUTHOR 12/05/2017 [facility] DATE CREATED AUTHOR AUTHOR'S ORGANIZ ATION 04/08/2020 [facility] DATE CREATED AUTHOR AUTHOR'S ORGANIZ ATION 11/11/2020 [facility] ([place]) DATE CREATED AUTHOR AUTHOR'S ORGANIZ ATION 09/20/2021 [facility] DATE CREATED AUTHOR AUTHOR'S ORGANIZ ATION 11/15/2024 [facility] DATE CREATED AUTHOR AUTHOR'S ORGANIZ ATION 12/06/2024 [facility] Source Comments (unrecognize d section and content) In the event this informatio n is protected by the Federal Confidentiality of Alcohol and Drug Abuse Patient Records regulations: The Federal rules restrict any use of the information to criminally investigate or prosecute any alcohol or drug abuse patient.[facility] the event this information is protected by the Federal Confidentiality of Alcohol and Drug Abuse Patient Records regulations: The Federal rules restrict any use of the information to criminally investigate or prosecute any alcohol or drug abuse patient.[facility] the event this information is protected by the Federal Confidentiality of Alcohol and Drug Abuse Patient Records regulations: The Federal rules restrict any use of the information to criminally investigate or prosecute any alcohol or drug abuse patient.[facility]In the event this information is protected by the Federal Confidentiality of Alcohol and Drug Abuse Patient Records regulations: The Federal rules restrict any use of the information to criminally investigate or prosecute any alcohol or drug abuse patient.[facility] the event this information is protected by the Federal Confidentiality of Alcohol and Drug Abuse Patient Records regulations: The Federal rules restrict any use of the information to criminally investigate or prosecute any alcohol or drug abuse patient.[facility]In the event this information is protected by the Federal Confidentiality of Alcohol and Drug Abuse Patient Records regulations: The Federal rules restrict any use of the information to criminally investigate or prosecute any alcohol or drug abuse patient.[facility]In the event this information is protected by the Federal Confidentiality of Alcohol and Drug Abuse Patient Records regulations: The Federal rules restrict any use of the information to criminally investigate or prosecute any alcohol or drug abuse patient.[facility] HospitalIn the event this information is protected by the Federal Confidentiality of Alcohol and Drug Abuse Patient Records regulations: The Federal rules restrict any use of the information to criminally investigate or prosecute any alcohol or drug abuse patient.[facility] HospitalIn the event this information is protected by the Federal Confidentiality of Alcohol and Drug Abuse Patient Records regulations: The Federal rules restrict any use of the information to criminally investigate or prosecute any alcohol or drug abuse patient.[facility] HospitalIn the event this information is protected by the Federal Confidentiality of Alcohol and Drug Abuse Patient Records regulations: The Federal rules restrict any use of the information to criminally investigate or prosecute any alcohol or drug abuse patient.[facility] HospitalIn the event this information is protected by the Federal Confidentiality of Alcohol and Drug Abuse Patient Records regulations: The Federal rules restrict any use of the information to criminally investigate or prosecute any alcohol or drug abuse patient.[facility] HospitalIn the event this information is protected by the Federal Confidentiality of Alcohol and Drug Abuse Patient Records regulations: The Federal rules restrict any use of the information to criminally investigate or prosecute any alcohol or drug abuse patient.[facility] HospitalIn the event this information is protected by the Federal Confidentiality of Alcohol and Drug Abuse Patient Records regulations: The Federal rules restrict any use of the information to criminally investigate or prosecute any alcohol or drug abuse patient.[facility] HospitalIn the event this information is protected by the Federal Confidentiality of Alcohol and Drug Abuse Patient Records regulations: The Federal rules restrict any use of the information to criminally investigate or prosecute any alcohol or drug abuse patient.[facility] HospitalIn the event this information is protected by the Federal Confidentiality of Alcohol and Drug Abuse Patient Records regulations: The Federal rules restrict any use of the information to criminally investigate or prosecute any alcohol or drug abuse patient.[facility] HospitalIn the event this information is protected by the Federal Confidentiality of Alcohol and Drug Abuse Patient Records regulations: The Federal rules restrict any use of the information to criminally investigate or prosecute any alcohol or drug abuse patient.[facility] HospitalIn the event this information is protected by the Federal Confidentiality of Alcohol and Drug Abuse Patient Records regulations: The Federal rules restrict any use of the information to criminally investigate or prosecute any alcohol or drug abuse patient.[facility] HospitalIn the event this information is protected by the Federal Confidentiality of Alcohol and Drug Abuse Patient Records regulations: The Federal rules restrict any use of the information to criminally investigate or prosecute any alcohol or drug abuse patient.[facility] HospitalIn the event this information is protected by the Federal Confidentiality of Alcohol and Drug Abuse Patient Records regulations: The Federal rules restrict any use of the information to criminally investigate or prosecute any alcohol or drug abuse patient.[facility] HospitalIn the event this information is protected by the Federal Confidentiality of Alcohol and Drug Abuse Patient Records regulations: The Federal rules restrict any use of the information to criminally investigate or prosecute any alcohol or drug abuse patient.[facility] HospitalIn the event this information is protected by the Federal Confidentiality of Alcohol and Drug Abuse Patient Records regulations: The Federal rules restrict any use of the information to criminally investigate or prosecute any alcohol or drug abuse patient.[facility] HospitalIn the event this information is protected by the Federal Confidentiality of Alcohol and Drug Abuse Patient Records regulations: The Federal rules restrict any use of the information to criminally investigate or prosecute any alcohol or drug abuse patient.[facility] HospitalIn the event this information is protected by the Federal Confidentiality of Alcohol and Drug Abuse Patient Records regulations: The Federal rules restrict any use of the information to criminally investigate or prosecute any alcohol or drug abuse patient.[facility] HospitalIn the event this information is protected by the Federal Confidentiality of Alcohol and Drug Abuse Patient Records regulations: The Federal rules restrict any use of the information to criminally investigate or prosecute any alcohol or drug abuse patient.[facility] HospitalIn the event this information is protected by the Federal Confidentiality of Alcohol and Drug Abuse Patient Records regulations: The Federal rules restrict any use of the information to criminally investigate or prosecute any alcohol or drug abuse patient.[facility] HospitalIn the event this information is protected by the Federal Confidentiality of Alcohol and Drug Abuse Patient Records regulations: The Federal rules restrict any use of the information to criminally investigate or prosecute any alcohol or drug abuse patient.[facility] HospitalIn the event this information is protected by the Federal Confidentiality of Alcohol and Drug Abuse Patient Records regulations: The Federal rules restrict any use of the information to criminally investigate or prosecute any alcohol or drug abuse patient.[facility] HospitalIn the event this information is protected by the Federal Confidentiality of Alcohol and Drug Abuse Patient Records regulations: The Federal rules restrict any use of the information to criminally investigate or prosecute any alcohol or drug abuse patient.[facility] HospitalIn the event this information is protected by the Federal Confidentiality of Alcohol and Drug Abuse Patient Records regulations: The Federal rules restrict any use of the information to criminally investigate or prosecute any alcohol or drug abuse patient.[facility] HospitalIn the event this information is protected by the Federal Confidentiality of Alcohol and Drug Abuse Patient Records regulations: The Federal rules restrict any use of the information to criminally investigate or prosecute any alcohol or drug abuse patient.[facility] HospitalIn the event this information is protected by the Federal Confidentiality of Alcohol and Drug Abuse Patient Records regulations: The Federal rules restrict any use of the information to criminally investigate or prosecute any alcohol or drug abuse patient.[facility] the event this information is protected by the Federal Confidentiality of Alcohol and Drug Abuse Patient Records regulations: The Federal rules restrict any use of the information to criminally investigate or prosecute any alcohol or drug abuse patient.[facility] HospitalIn the event this information is protected by the Federal Confidentiality of Alcohol and Drug Abuse Patient Records regulations: The Federal rules restrict any use of the information to criminally investigate or prosecute any alcohol or drug abuse patient.[facility] HospitalIn the event this information is protected by the Federal Confidentiality of Alcohol and Drug Abuse Patient Records regulations: The Federal rules restrict any use of the information to criminally investigate or prosecute any alcohol or drug abuse patient.[facility] HospitalIn the event this information is protected by the Federal Confidentiality of Alcohol and Drug Abuse Patient Records regulations: The Federal rules restrict any use of the information to criminally investigate or prosecute any alcohol or drug abuse patient.[facility] HospitalIn the event this information is protected by the Federal Confidentiality of Alcohol and Drug Abuse Patient Records regulations: The Federal rules restrict any use of the information to criminally investigate or prosecute any alcohol or drug abuse patient.[facility] HospitalIn the event this information is protected by the Federal Confidentiality of Alcohol and Drug Abuse Patient Records regulations: The Federal rules restrict any use of the information to criminally investigate or prosecute any alcohol or drug abuse patient.[facility] HospitalIn the event this information is protected by the Federal Confidentiality of Alcohol and Drug Abuse Patient Records regulations: The Federal rules restrict any use of the information to criminally investigate or prosecute any alcohol or drug abuse patient.[facility] HospitalIn the event this information is protected by the Federal Confidentiality of Alcohol and Drug Abuse Patient Records regulations: The Federal rules restrict any use of the information to criminally investigate or prosecute any alcohol or drug abuse patient.[facility] HospitalIn the event this information is protected by the Federal Confidentiality of Alcohol and Drug Abuse Patient Records regulations: The Federal rules restrict any use of the information to criminally investigate or prosecute any alcohol or drug abuse patient.[facility] HospitalIn the event this information is protected by the Federal Confidentiality of Alcohol and Drug Abuse Patient Records regulations: The Federal rules restrict any use of the information to criminally investigate or prosecute any alcohol or drug abuse patient.[facility] HospitalIn the event this information is protected by the Federal Confidentiality of Alcohol and Drug Abuse Patient Records regulations: The Federal rules restrict any use of the information to criminally investigate or prosecute any alcohol or drug abuse patient.[facility] HospitalIn the event this information is protected by the Federal Confidentiality of Alcohol and Drug Abuse Patient Records regulations: The Federal rules restrict any use of the information to criminally investigate or prosecute any alcohol or drug abuse patient.[facility] HospitalIn the event this information is protected by the Federal Confidentiality of Alcohol and Drug Abuse Patient Records regulations: The Federal rules restrict any use of the information to criminally investigate or prosecute any alcohol or drug abuse patient.[facility] HospitalIn the event this information is protected by the Federal Confidentiality of Alcohol and Drug Abuse Patient Records regulations: The Federal rules restrict any use of the information to criminally investigate or prosecute any alcohol or drug abuse patient.[facility] HospitalIn the event this information is protected by the Federal Confidentiality of Alcohol and Drug Abuse Patient Records regulations: The Federal rules restrict any use of the information to criminally investigate or prosecute any alcohol or drug abuse patient.[facility] HospitalIn the event this information is protected by the Federal Confidentiality of Alcohol and Drug Abuse Patient Records regulations: The Federal rules restrict any use of the information to criminally investigate or prosecute any alcohol or drug abuse patient.[facility] HospitalIn the event this information is protected by the Federal Confidentiality of Alcohol and Drug Abuse Patient Records regulations: The Federal rules restrict any use of the information to criminally investigate or prosecute any alcohol or drug abuse patient.[facility] HospitalIn the event this information is protected by the Federal Confidentiality of Alcohol and Drug Abuse Patient Records regulations: The Federal rules restrict any use of the information to criminally investigate or prosecute any alcohol or drug abuse patient.[facility] HospitalIn the event this information is protected by the Federal Confidentiality of Alcohol and Drug Abuse Patient Records regulations: The Federal rules restrict any use of the information to criminally investigate or prosecute any alcohol or drug abuse patient.[facility] HospitalIn the event this information is protected by the Federal Confidentiality of Alcohol and Drug Abuse Patient Records regulations: The Federal rules restrict any use of the information to criminally investigate or prosecute any alcohol or drug abuse patient.[facility] HospitalIn the event this information is protected by the Federal Confidentiality of Alcohol and Drug Abuse Patient Records regulations: The Federal rules restrict any use of the information to criminally investigate or prosecute any alcohol or drug abuse patient.[facility] Hospital[facility] the event this information is protected by the Federal Confidentiality of Alcohol and Drug Abuse Patient Records regulations: The Federal rules restrict any use of the information to criminally investigate or prosecute any alcohol or drug abuse patient.[facility] HospitalIn the event this information is protected by the Federal Confidentiality of Alcohol and Drug Abuse Patient Records regulations: The Federal rules restrict any use of the information to criminally investigate or prosecute any alcohol or drug abuse patient.[facility] Reason for Visit (unrecogniz ed section and content) Reason Comments Radiology CT Specialty Diagnoses / Procedures Referred By Velma t Referred To Contact CT IMAGING Diagnoses Abdominal mass, unspecified abdominal location Procedures CT ABD/PEL WO IVCON CT ABD & PELVIS W/O CONTRAST Marshall Plascencia MD [address] [place] [address] Ct Imaging Referral ID Status Reason Start Date Expiration Date V isits Requested Visits Authorized [id number] Closed Auto-Generate d Referral 10/05/2021 11/04/2022 1 1 Reason Comments Results Reason Onset Date Comments Refill Request 09/24/2021 Reason Comments Prescription Refills Reason Comments Patient Update referral to Dr Scott Reason Comments Follow Up 6 month Specialty Diagnoses / Procedures Referred By Velma villalta Referred To Contact Cardiology Diagnoses Coronary artery disease involving [place] coronary artery of [place] heart without angina pectoris Procedures CONSULT TO CARDIOLOGY NEW PATIENT VISIT LEVEL 5 Jose Hyde MD [address] [place] [address] Referral ID Status Reason Start Date Expiration Date V isits Requested Visits Authorized [id number] Closed PCP Requested Referral 05/05/2021 05/05/2022 1 [...] Memory deficit Procedures CONSULT TO GERIATRICS OFFICE/OUTPATIENT [facility] 60 MINUTES Vlad Pyle, MICROBIOLOGY DIRECTOR.SEISMOMETER OPERATOR [address] [place] [address] Referral ID Status Reason Start Date Expiration Date V isits Requested Visits Authorized [id number] Closed PCP Requested Referral 04/29/2024 04/29/2025 1 1 Reason Onset Date Comments Refill Request 07/18/2024 Reason Comments F/U 3 Month Reason Comments Hospital F/U Reason Comments Diarrhea Care Teams (unrecognized sec tion and content) Director Hospice Operations Relationship Specialty Start Date End Date Jose Hyde MD [address] [place], [place] [id number] PCP - General 05/27/08 Sergio White [address] [facility] [address] [address] Cardiology 07/22/16 Director Hospice Operations Relationship Specialty Start Date End Date Jose Hyde MD [address] [place], [place] [id number] PCP - General 05/27/08 Sergio White [address] [address] Cardiology 07/22/16 Director Hospice Operations Relationship Specialty Start Date End Date Jose Hyde MD [address] [place] [address] PCP - General 05/27/08 Sergio White [address] [place] [address] Cardiology 07/22/16 Director Hospice Operations Relationship Specialty Start Date End Date Jose Hyde MD [address] [facility] [place] [address] PCP - General 05/27/08 Sergio White [address] [place] [address] Cardiology 07/22/16 Director Hospice Operations Relationship Specialty Start Date End Date Jose Hyde MD [address] [facility] [place] [address] PCP - General 05/27/08 Sergio White [address] [place] [address] Cardiology 07/22/16 Director Hospice Operations Relationship Specialty Start Date End Date Jose Hyde MD [address] [facility] [place] [address] PCP - General 05/27/08 Sergio White [address] [place] [address] Cardiology 07/22/16 Director Hospice Operations Relationship Specialty Start Date End Date Jose Hyde MD [address] [facility] [place] [address] PCP - General 05/27/08 Sergio White [address] [place] [address] Cardiology 07/22/16 Director Hospice Operations Relationship Specialty Start Date End Date Jose Hyde MD [address] [facility] [place] [address] PCP - General 05/27/08 Sergio White [address] [place] [address] Cardiology 07/22/16 Director Hospice Operations Relationship Specialty Start Date End Date Jose Hyde MD [address] [facility] [place] [address] PCP - General 05/27/08 Sergio White [address] [place] [address] Cardiology 07/22/16 Director Hospice Operations Relationship Specialty Start Date End Date Jose Hyde MD [address] [facility] [place] [address] PCP - General 05/27/08 Sergio White [address] [place] [address] Cardiology 07/22/16 Director Hospice Operations Relationship Specialty Start Date End Date Jose Hyde MD [address] [facility] [place] [address] PCP - General 05/27/08 Sergio White [address] [place] [address] Cardiology 07/22/16 Director Hospice Operations Relationship Specialty Start Date End Date Jose Hyde MD [address] [facility] [place] [address] PCP - General 05/27/08 Sergio White [address] [place] [address] Cardiology 07/22/16 Director Hospice Operations Relationship Specialty Start Date End Date Jose Hyde MD [address] [facility] [address] PCP - General 05/27/08 Sergio White [address] [place] [address] Cardiology 07/22/16 Director Hospice Operations Relationship Specialty Start Date End Date Jose Hyde MD [address] [facility] [address] PCP - General 05/27/08 Sergio White [address] [place] [address] Cardiology 07/22/16 Director Hospice Operations Relationship Specialty Start Date End Date Jose Hyde MD [address] [facility] [address] PCP - General 05/27/08 Sergio White [address] [place] [address] Cardiology 07/22/16 Director Hospice Operations Relationship Specialty Start Date End Date Jose Hyde MD [address] [facility] [address] PCP - General 05/27/08 Sergio White [address] [place] [address] Cardiology 07/22/16 Director Hospice Operations Relationship Specialty Start Date End Date Jose Hyde MD [address] [facility] [address] PCP - General 05/27/08 Sergio White [address] [place] [address] Cardiology 07/22/16 Director Hospice Operations Relationship Specialty Start Date End Date Jose Hyde MD [address] [place] [address] PCP - General 05/27/08 Sergio White [address] [place] [address] Cardiology 07/22/16 Team Status: Active Member Role Status Dates Dr. Jose Hyde MD Primary Care Provider Active Team Status: Inactive Member Role Status Dates Dr. Jose Hyde MD Primary Care Provider Active Dr. Orlin Fletcher MD Attending Provider, Referring Provider Active Director Hospice Operations Relationship Specialty Start Date End Date Jose Hyde MD [address] [place] [address] PCP - General 05/27/08 Sergio White [address] [address] Cardiology 07/22/16 Director Hospice Operations Relationship Specialty Start Date End Date Jose Hyde MD [address] [place] [address] PCP - General 05/27/08 Sergio White MD [address] [place] [address] Cardiology 07/22/16 Director Hospice Operations Relationship Specialty Start Date End Date Jose Hyde MD [address] [facility] [address] PCP - General 05/27/08 Sergio White MD [address] [place] [address] Cardiology 07/22/16 Director Hospice Operations Relationship Specialty Start Date End Date Jose Hyde MD [address] [facility] [address] PCP - General 05/27/08 Sergio White MD [address] [place] [address] Cardiology 07/22/16 Director Hospice Operations Relationship Specialty Start Date End Date Jose Hyde MD [address] [place] [address] PCP - General 05/27/08 Sergio White MD [address] [place] [address] Cardiology 07/22/16 Director Hospice Operations Relationship Specialty Start Date End Date Jose Hyde MD [address] [facility] [address] PCP - General 05/27/08 Sergio White MD [address] [place] [address] Cardiology 07/22/16 Director Hospice Operations Relationship Specialty Start Date End Date Jose Hyde MD [address] [place] [address] PCP - General 05/27/08 Sergio White MD [address] [place] [address] Cardiology 07/22/16 Director Hospice Operations Relationship Specialty Start Date End Date Jose Hyde MD [address] [place] [address] PCP - General 05/27/08 Sergio White MD [address] [address] Cardiology 07/22/16 Director Hospice Operations Relationship Specialty Start Date End Date Jose Hyde MD [address] [place] [address] PCP - General 05/27/08 Sergio White MD [address] [address] Cardiology 07/22/16 Director Hospice Operations Relationship Specialty Start Date End Date Jose Hyde MD [address] [place] [address] PCP - General 05/27/08 Sergio White MD [address] [address] Cardiology 07/22/16 Director Hospice Operations Relationship Specialty Start Date End Date Jose Hyde MD [address] [place] [address] PCP - General 05/27/08 Sergio White MD [address] [address] Cardiology 07/22/16 Director Hospice Operations Relationship Specialty Start Date End Date Jose Hyde MD [address] [place] [address] PCP - General 05/27/08 Sergio White MD [address] [address] Cardiology 07/22/16 Director Hospice Operations Relationship Specialty Start Date End Date Jose Hyde MD [address] [place] [address] PCP - General 05/27/08 Sergio White MD [address] [address] Cardiology 07/22/16 Director Hospice Operations Relationship Specialty Start Date End Date Jose Hyde MD [address] [place] [address] PCP - General 05/27/08 Sergio White MD [address] [address] Cardiology 07/22/16 Director Hospice Operations Relationship Specialty Start Date End Date Jose Hyde MD [address] [place] [address] PCP - General 05/27/08 Sergio White MD [address] [place] [address] Cardiology 07/22/16 Vlad Pyle, MICROBIOLOGY DIRECTOR.SEISMOMETER OPERATOR [address] [facility] [place] [address] Credit Risk Specialist Internal Medicine 05/27/24 Romina Chao MICROBIOLOGY DIRECTOR.INSTRUMENTATION TECH [address] [facility] [place] [address] Credit Risk Specialist Internal Medicine 05/27/24 Director Hospice Operations Relationship Specialty Start Date End Date Jose Hyde MD [address] [facility] [address] PCP - General 05/27/08 Sergio White MD [address] [place] [address], [place] [address] Cardiology 07/22/16 Vlad Pyle, MICROBIOLOGY DIRECTOR.SEISMOMETER OPERATOR [address] [facility] [place] [address] Credit Risk Specialist Internal Medicine 05/27/24 Romina Chao MICROBIOLOGY DIRECTOR.INSTRUMENTATION TECH [address] [facility] [place] [address] Credit Risk Specialist Internal Medicine 05/27/24 Director Hospice Operations Relationship Specialty Start Date End Date Jose Hyde MD [address] [facility] [address] PCP - General 05/27/08 Sergio White MD [address] [place] [address] Cardiology 07/22/16 Vlad Pyle, MICROBIOLOGY DIRECTOR.SEISMOMETER OPERATOR [address] [facility] [place] [address] [facility] Internal Medicine 05/27/24 Romina Chao MICROBIOLOGY DIRECTOR.INSTRUMENTATION TECH [address] [facility] [place] [address] [facility] Internal Medicine 05/27/24 Director Hospice Operations Relationship Specialty Start Date End Date Jose Hyde MD [address] [place] [address] PCP - General 05/27/08 Sergio White MD [address] [facility] [address] [place] [address] Cardiology 07/22/16 Vlad Pyle, MICROBIOLOGY DIRECTOR.SEISMOMETER OPERATOR [address] [place] [address] [facility] Internal Medicine 05/27/24 Romina Chao, MICROBIOLOGY DIRECTOR.INSTRUMENTATION TECH [address] [facility] [place] [address] [facility] Internal Medicine 05/27/24 Director Hospice Operations Relationship Specialty Start Date End Date Jose Hyde MD [address] [place] [address] PCP - General 05/27/08 Sergio White MD [address] [place] [address] Cardiology 07/22/16 Vlad Pyle, MICROBIOLOGY DIRECTOR.SEISMOMETER OPERATOR [address] [facility] [place] [address] [facility] Internal Medicine 05/27/24 Romina Chao, MICROBIOLOGY DIRECTOR.INSTRUMENTATION TECH [address] [facility] [place] [address] [facility] Internal Medicine 05/27/24 Director Hospice Operations Relationship Specialty Start Date End Date Jose Hyde MD [address] [facility] [address] PCP - General 05/27/08 Sergio White MD [address] [address] Cardiology 07/22/16 Vlad Pyle, MICROBIOLOGY DIRECTOR.SEISMOMETER OPERATOR [address] [facility] [place] [address] [facility] Internal Medicine 05/27/24 Romina Chao, MICROBIOLOGY DIRECTOR.INSTRUMENTATION TECH [address] [facility] [address] [facility] Internal Medicine 09/10/24 Team Status: Inactive [...] Provider Active Sta rt: October 24, 2024 Director Hospice Operations Relationship Specialty Start Date End Date Jose Hyde MD [address] [place], [place] [id number] PCP - General 05/27/08 Sergio White MD [address] [id number] Cardiology 07/22/16 Vlad Pyle, MICROBIOLOGY DIRECTOR.SEISMOMETER OPERATOR [address] [facility] [place], [place] [address] Credit Risk Specialist Internal Medicine 05/27/24 11/05/24 Romina Chao, MICROBIOLOGY DIRECTOR.INSTRUMENTATION TECH [address] [facility], [place] [address] Credit Risk Specialist Internal Medicine 09/10/24 Director Hospice Operations Relationship Specialty Start Date End Date Jose Hyde MD [address] [place] [address] PCP - General 05/27/08 Sergio White MD [address] [place] [address] Cardiology 07/22/16 Romina Chao MICROBIOLOGY DIRECTOR.INSTRUMENTATION TECH [address] [facility] [address] Credit Risk Specialist Internal Medicine 09/10/24 Vlad Pyle APRN.SEISMOMETER OPERATOR [address] [place] [address] Credit Risk Specialist Internal Medicine 11/06/24 Director Hospice Operations Relationship Specialty Start Date End Date Jose Hyde MD [address] [place] [address] PCP - General 05/27/08 Sergio White MD [address] [place] [address] Cardiology 07/22/16 Romina Chao MICROBIOLOGY DIRECTOR.INSTRUMENTATION TECH [address] [facility] [address] Credit Risk Specialist Internal Medicine 09/10/24 Vlad Pyle APRN.SEISMOMETER OPERATOR [address] [place] [address] Credit Risk Specialist Internal Medicine 11/06/24 Goals (unrecognized section and [...] BE BASED ON THE PRIMARY CLINICAL RECORDS. [facility]. provides no warranty or guarantee of the accuracy or completeness of information in this document.
[2024-12-13 00:11] LABS: Anion Gap 13 (5-15); BUN 20 mg/dL (4-19); BUN/Creat Ratio 23.6 RATIO (10-20); Calcium,Total 9.4 mg/dL (7.6-11.0); Carbon Dioxide 22.3 mmol/L (21.0-32.0); Chloride 101 mmol/L (98-108); Creatinine, Serum 0.85 mg/dL (0.70-1.20); EST Glomerular Filtration Rate 72 (>60); Estimated Creatinine Clearance 41.71 ml/min (50-250); Glucose 120 mg/dL (70-99); Potassium 3.8 mmol/L (3.3-5.1); Sodium Level 136 mmol/L (133-145)
[2024-12-13 00:17] LABS: Absolute Lymphocyte Count 1.81 X10^3/uL (0.83-4.51); Absolute Neutrophil Count 8.3 X10^3/uL (2.0-7.7); Basophil# 0.04 X10^3/uL; Basophil% 0.4 % (0-1); Eosinophil# 0.02 X10^3/uL; Eosinophils% 0.2 % (0-5); Hemoglobin 13.4 g/dL (12.0-15.0); Lymphocyte # 1.81 X10^3/ul (0.83-4.51); Lymphocyte % 16.2 % (19-41); Mean Corp Hgb Conc 35.3 g/dL (32-36); Mean Corpuscular Hgb 33.6 pg (27.0-32.0); Mean Corpuscular Volume 95.2 fL (81-99); Mean Platelet Vol. 11.1 fl (6.2-12.0); Monocyte# 1.02 X10^3/uL; Monocyte% 9.1 % (0-10); NRBC Flagged by Analyzer 0 % (0-5); Neutrophil # 8.27 X10^3/uL (2.7-7.7); Neutrophil % 73.8 % (47-70); Platelet Count 200 K/mm3 (150-450); RBC Distribution Width CV 12.9 % (11.6-14.6); RBC Distribution Width SD 45.3 fl (35.1-43.9); Red Blood Count 3.99 M/mm3 (4.2-5.4); White Blood Count 11.2 K/mm3 (4.4-11.0)
--- NOTE | 2024-12-13 00:27 | ECHOD_ITS ---
Reason For Study Reason For Study: CAD, Rt hip fracture Procedure This was a 2D Doppler, Color Flow transthoracic echocardiogram. Exam performed in department. Left Ventricle Normal LV size. Mild concentric left ventricular hypertrophy. Posterior and basal inferior wall severely hypokinetic. Overall left ventricular systolic ejection fraction estimated at 60%. Stage I diastolic dysfunction. Right Ventricle Normal right ventricle. Atria The left and right atria are normal. Mitral Valve Mild mitral valve annular calcification. Moderate focal calcification of mitral valve leaflets. Mild mitral valve regurgitation. Tricuspid Valve Moderate (2+) tricuspid valve insufficiency. Right ventricular systolic pressure estimated to be 39 mmHg. Aortic Valve Trisinus/trileaflet aortic valve. Pulmonic Valve The pulmonic valve is not well visualized. Great Vessels Normal sized aortic root. Pericardium/Pleural No pericardial effusion. MMode/2D Measurements & Calculations LVIDd: 4.2 cm IVSd: 1.3 cm Ao root diam: 3.4 cm LVIDs: 3.0 cm LVPWd: 0.96 cm RVDd: 3.6 cm FS: 29.5 % LAV(MOD-bp): 38.4 ml LVAd ap4: 23.3 cm2 SV(MOD-sp4): 38.3 ml LAV(MOD-bp) Indexed: 28.9 ml/m2 LVLd ap4: 7.0 cm SI(MOD-sp4): 28.8 ml/m2 LAV(MOD-sp2): 24.6 ml EDV(MOD-sp4): 65.8 ml LAV(MOD-sp4): 57.4 ml EDV(sp4-el): 65.6 ml LVAs ap4: 14.1 cm2 LVLs ap4: 6.3 cm ESV(MOD-sp4): 27.5 ml ESV(sp4-el): 27.0 ml EF(MOD-sp4): 58.2 % EF(sp4-el): 58.7 % SV(sp4-el): 38.5 ml LA A4 area: 18.0 cm2 LA dimension(2D): 2.9 cm RA A4 area: 14.2 cm2 TAPSE: 2.4 cm Doppler Measurements & Calculations MV E max juan: 53.3 cm/sec Lat Peak E' Juan: 6.4 cm/sec Med Peak E' Juan: 5.5 cm/sec MV A max juan: 107.0 cm/sec E/E' lat: 8.3 E/E' med: 9.6 MV E/A: 0.50 Ao V2 max: 155.1 cm/sec LV V1 max: 120.8 cm/sec PA V2 max: 98.0 cm/sec Ao max P.6 mmHg LV V1 max P.8 mmHg TR max juan: 290.3 cm/sec TR max P.7 mmHg ECHO/Echo Complete Interpretation Summary Mild concentric left ventricular hypertrophy. Posterior and basal inferior wall severely hypokinetic. Overall left ventricula r systolic ejection fraction estimated at 60%. Stage I diastolic dysfunction. Mild mitral valve annular calcification. Moderate focal calcification of mitral valve leaflets. Mild mitral valve regurgitation. Moderate (2+) tricuspid valve insufficiency. Right ventricular systolic pressure estimated to be 39 mmHg. Ordering Physician: Emily Garza Referring Physician: Laurie Finley M.D. Performed By: Ilsa Mack RDCS
[2024-12-13 00:56] LABS: Magnesium 1.8 mg/dL (1.5-2.2)
[2024-12-13] MEDS: 0.9% Saline Lock 10 ML Syringe IV ×2 (01:04→11:12)
[2024-12-13] MEDS: 0.9% Normal Saline (1000mL) 1,000 ML 100 ML IV (01:04)
[2024-12-13] MEDS: oxyCODONE 5 MG Tablet 2.5 MG PO ×4 (03:22→20:24)
[2024-12-13 05:33] LABS: Absolute Lymphocyte Count 2.21 X10^3/uL (0.83-4.51); Absolute Neutrophil Count 6.7 X10^3/uL (2.0-7.7); Basophil# 0.06 X10^3/uL; Basophil% 0.6 % (0-1); Eosinophil# 0.07 X10^3/uL; Eosinophils% 0.7 % (0-5); Hematocrit 37.2 % (37-47); Hemoglobin 13.1 g/dL (12.0-15.0); Lymphocyte # 2.21 X10^3/ul (0.83-4.51); Lymphocyte % 21.8 % (19-41); Mean Corp Hgb Conc 35.2 g/dL (32-36); Mean Corpuscular Hgb 33.2 pg (27.0-32.0); Mean Corpuscular Volume 94.2 fL (81-99); Mean Platelet Vol. 11.2 fl (6.2-12.0); Monocyte# 1.09 X10^3/uL; Monocyte% 10.8 % (0-10); NRBC Flagged by Analyzer 0 % (0-5); Neutrophil # 6.67 X10^3/uL (2.7-7.7); Neutrophil % 65.8 % (47-70); Platelet Count 191 K/mm3 (150-450); RBC Distribution Width CV 12.8 % (11.6-14.6); RBC Distribution Width SD 44.2 fl (35.1-43.9); Red Blood Count 3.95 M/mm3 (4.2-5.4); White Blood Count 10.1 K/mm3 (4.4-11.0)
[2024-12-13 06:01] LABS: ALB/GLOB Ratio 1.1 RATIO (0.9-2.4); AST(SGOT) 54 U/L (<=31); Alanine Aminotransfer ALT/SGPT 17 U/L (<=34); Albumin, Serum 3.4 g/dL (3.4-4.8); Alkaline Phosphatase 82 U/L (35-104); Anion Gap 15 (5-15); BUN 18 mg/dL (4-19); BUN/Creat Ratio 26.2 RATIO (10-20); Calcium,Total 9.1 mg/dL (7.6-11.0); Carbon Dioxide 18.8 mmol/L (21.0-32.0); Chloride 102 mmol/L (98-108); Creatinine, Serum 0.67 mg/dL (0.70-1.20); EST Glomerular Filtration Rate 92 (>60); Estimated Creatinine Clearance 37.01 ml/min (50-250); Globulin 3.1 g/dL (2.2-4.2); Glucose 108 mg/dL (70-99); Potassium 3.3 mmol/L (3.3-5.1); Pro- Brain NATRIURETIC PEPTIDE 4594 pg/mL (<=900); Protein, Total 6.5 g/dL (5.9-8.4); Sodium Level 135 mmol/L (133-145)
--- NOTE | 2024-12-13 08:24 | PN.HOSP_ITS ---
Reason for Visit Reason for Visit: Diagnoses Displaced intertrochanteric fracture of right femur, initial encounter for closed fracture (12/12/24) Objective Data Objective Data Vital Signs: Vital Signs Temp Pulse Resp BP Pulse Ox O2 Del Method 98.2 F 61 16 122/66 H 92 Room Air 12/13/24 08:20 12/13/24 08:20 12/13/24 08:20 12/13/24 08:20 12/13/24 08:20 12/13/24 08:20 Oxygen Delivery Method Room Air Weight: 83 lb 12.41 oz Body Mass Index (BMI) 14.3 Intake & Output: Intake and Output for Last 24 Hours 12/11/24 12/12/24 12/13/24 23:59 23:59 23:59 Intake Total 0 / 0 Output Total 300 / 300 Balance 0 / 0 -300 / -300 Lab / Micro Data 12/13/24 04:27 12/13/24 04:27 Labs: Laboratory Results - last 24 hr 12/12/24 23:25: WBC 11.2 H, RBC 3.99 L, Hgb 13.4, Hct 38.0, MCV 95.2, MCH 33.6 H , MCHC 35.3, RDW Std Deviation 45.3 H, RDW Coeff of [place] 12.9, Plt Count 200, MPV 11.1, Immature Gran % (Auto) 0.300, Neut % (Auto) 73.8 H, Lymph % (Auto) 16.2 L, [place] % (Auto) 9.1, Eos % (Auto) 0.2, Baso % (Auto) 0.4, Absolute Neuts (auto) 8.3 H, Absolute Lymphs (auto) 1.81, Nucleated RBC % 0, Sodium 136, Potassium 3.8, Chloride 101, Carbon Dioxide 22.3, Anion Gap 13, BUN 20 H, Creatinine 0.85, Estim Creat Clear Calc 41.71 L, Est GFR (MDRD) Non-Af 72, BUN/Creatinine Ratio 23.6 H, Glucose 120 H, Calcium 9.4, Magnesium 1.8, Blood Type O POSITIVE, Antibody Screen NEGATIVE 12/13/24 04:27: WBC 10.1, RBC 3.95 L, Hgb 13.1, Hct 37.2, MCV 94.2, MCH 33.2 H, MCHC 35.2, RDW Std Deviation 44.2 H, RDW Coeff of [place] 12.8, Plt Count 191, MPV 11.2, Immature Gran % (Auto) 0.300, Neut % (Auto) 65.8, Lymph % (Auto) 21.8, M [place] % (Auto) 10.8 H, Eos % (Auto) 0.7, Baso % (Auto) 0.6, Absolute Neuts (auto) 6.7, Absolute Lymphs (auto) 2.21, Nucleated RBC % 0, Sodium 135, Potassium 3.3, Chloride 102, Carbon Dioxide 18.8 L, Anion Gap 15, BUN 18, Creatinine 0.67 L, Estim Creat Clear Calc 37.01 L, Est GFR (MDRD) Non-Af 92, BUN/Creatinine Ratio 26.2 H, Glucose 108 H, Calcium 9.1, Total Bilirubin 0.60, AST 54 H, ALT 17, Alkaline Phosphatase 82, NT pro BNP II 4594 H, Total Protein 6.5, Albumin 3.4, Globulin 3.1, Albumin/Globulin Ratio 1.1 Radiography Diagnostic Testing: Radiology Impression Chest X-Ray 12/12/24 03:20 IMPRESSION: No acute chest findings. Reading Location: [place] [id number] Hip/Pelvis X-Ray 12/12/24 22:50 IMPRESSION: Acute right intertrochanteric femoral neck fracture. Reading Location: [place] [id number] Physical Exam Narrative Seen and examined. Denies chest pain, shortness of breath, palpitation. Twelve-lead EKG shows normal sinus rhythm. No abdominal pain. Moving her bowel. Denies dysuria Physical exam General: Alert, Oriented x3, Cooperative HEENT: Atraumatic, PERRLA, EOMI, Normocephalic. Oral: No Gingival or Mucosal Lesions/ Ulcerations Neck: Supple, No JVD, Negative Carotid Bruits Chest wall/Lungs: Air entry diminished in bilateral lung bases. No crepitation/rhonchi Cardiovascular: Regular rate and rhythm, Normal S1,S2, No M/G/R Abdomen: Bowel Sounds Present, Soft, Non Tender, Non-Distended : No dysuria. No renal angle tenderness. No suprapubic tenderness. Extremities: No edema, Capillary Refill Less than 3 Seconds Skin: No rashes, No breakdown Musculoskeletal: Tenderness present over right hip. Right hip flexed, externally rotated. ROM not attempted over right hip Neurological: Cranial nerves II-XII grossly intact, DTR 2+/4. No acute focal neurological deficit. Psych/Mental Status: flight of Assessment & Plan Assessment/Plan (1) Closed intertrochanteric fracture of right hip: PLAN: Plan The patient is a 73 y/o F was brought to ED for right hip pain after fall at 8 AM on day of admission. On x-ray found to have right hip intertrochanteric fracture. #1. General debility, right hip pain s/p mechanical fall complicated into acute right hip fracture: The patient is being admitted in PCU but as MedSurg status. Right hip/pelvis x-ray reviewed and shows acute right intertrochanteric fracture. Pain control PT and OT ordered. Orthopedic surgeon consulted from ER. Per NSQIP assessment patient certainly at least moderate risk given underlying cardiac history with most recent echocardiogram noted 03/28/2017 with LV function normal, EF 65%, mild MVR, mild TVR, RVSP 29 mmHg at that time, will request BNP and echocardiogram at this time and if not marked appearing may potentially consider transition to OR pending also cardiology assessment given higher risk. #2. Chronic Kidney Disease Stage IIIb: Admission BUN/Cr 20/0.8 baseline renal function primarily 0.6-0.9 repeat BMP in AM. #3. CAD: Status post PCI, she had DC when she was about 41-year-old. From chart it seems last cardiac stent was in 2012. Plavix is on hold. Continue statin, atenolol. Not on GODWIN/ARB #4. Anxiety depression/bipolar disorder:continue patient home sertraline, Seroquel, bupropion home regimen, encourage continued outpatient follow-up and evaluation as previously arranged. #5. Hypertension: Continue home regimen including amlodipine, atenolol, PRN hydralazine. #6. Hyperlipidemia: Will continue patient on statin therapy. #7. Severe protein calorie malnutrition: Patient with recent admission as noted with significant GI losses at that time but persistent weight loss over several months, will cautiously consult nutrition for input to maximize preoperative assessment. #8. PAF: Holding Plavix as noted in preparation for operative intervention, not on any chronic anticoagulant therapy for currently's but clarified to be certain, continue atenolol home regimen. #9. Hypothyroidism: continue patient home levothyroxine regimen. 10. CT evidence of mildly dilated CBD to ~9 mm without calcified stone or other visible obstructing process during last admission in October 2024: MRCP reported liver and gallbladder grossly unremarkable. CBD dilated 10 mm tapering at ampulla. No definite filling defect to suggest choledocholithiasis. Trace to mild central intrahepatic biliary dilatation also present. Findings could reflect ampullary stenosis or less likely occult temporal lesion and ERCP was suggested. She has appoint with Dr. Borrego in this month ERCP on 10/22/2024 Impressions : - Biliary papillary stenosis, benign. - A single localized biliary stricture was found in the lower third of the main bile duct. The stricture was indeterminate. - An irregularity was found in the ventral pancreatic duct in the head of the pancreas. - Choledocholithiasis was found. Complete removal was accomplished by biliary sphincterotomy and balloon extraction. - A pancreatic sphincterotomy was performed. - The biliary tree was swept and debris was found. - One temporary stent was placed into the ventral pancreatic duct. - A biliary sphincterotomy was performed. - The biliary tree was swept. - Cells for cytology obtained in the lower third of the main duct. - One temporary stent was placed into the common bile duct. 11. DVT prophylaxis: SCDs pending orthopedic surgery evaluation and preparation for OR. CODE status: Patient reports having a living will in place but not specifically healthcare power of deputy county attorney set up but notes her would be her medical decision-maker if necessary. Discussed CODE status at length including difference between FULL code, DNR-CCA and DNR-CC status. Following discussions about the differences in these status, requested DNR-CCA with allowance of intubation. Charges/Coding Visit Charges Inpatient E&M: 00963 Subs Hosp L2
[2024-12-13] MEDS: Pantoprazole Sodium 20 MG Tablet PO (08:40)
[2024-12-13] MEDS: Atenolol 25 MG Tablet PO (08:40)
[2024-12-13] MEDS: amLODIPine 10 MG Tablet PO (08:40)
[2024-12-13] MEDS: Sertraline 50 MG Tablet PO (08:40)
[2024-12-13] MEDS: buPROPion (SR) 100 MG TABLET.SA PO (08:41)
[2024-12-13] MEDS: Acyclovir 200 MG Capsule 400 MG PO (08:41)
[2024-12-13] MEDS: Na Biphos/Potassium Phosphate PACKET 1 PACKET PO ×2 (08:41→14:41)
[2024-12-13] MEDS: Saliva Substitute 237 ML BOTTLE 15 ML MUCOUS MEM ×3 (08:42→17:10)
[2024-12-13] MEDS: Sertraline 100 MG Tablet PO (08:42)
[2024-12-13] MEDS: Acetaminophen 500 MG Tablet 1000 MG PO ×2 (08:47→14:41)
--- NOTE | 2024-12-13 09:29 | PCM.CONS.C ---
Assessment & Plan Assessment/Plan (1) Preoperative cardiovascular examination: PLAN: Patient has a history of coronary artery disease with percutaneous intervention to the RCA and remote history of ID. Presently no angina, signs or symptoms of heart failure. ECG shows likely old ID however I will check a troponin on her keeping in view the elevated proBNP. Also check echocardiogram. Further recommendations based on results of those. (2) Coronary artery disease: PLAN: History of stents to the RCA. Continue aspirin. May hold clopidogrel in anticipation of orthopedic surgery. Continue beta-blockers. Statins. Quit smoking. (3) Hypertension: PLAN: Amlodipine, atenolol. (4) Nicotine dependence: PLAN: Quit smoking (5) Closed intertrochanteric fracture of right hip: PLAN: Being contemplated for surgery. HPI Consult Data Date of Consult: 12/13/24 HPI Narrative Reason for Consultation: Preoperative cardiovascular evaluation HPI Narrative: 73-year-old female with past medical history significant for coronary artery disease status post percutaneous intervention in the past. According to her, her last percutaneous intervention with stent placement was about 5 years ago at the [facility]. Remote history of ID. He presented to the emergency room after sustaining a fall at home. According to her, she was walking down the stairs when she tripped and fell. She has been diagnosed with fracture of her femur and is being contemplated for surgery. We are asked to evaluate her cardiovascular risk for the proposed procedure. Per patient, prior to her fall, she had been doing well. Denies any history of angina or shortness of breath. No orthopnea or PND. No ankle edema. Per patient, she was able to climb 2 flights of stairs without any issues. Denies any palpitations. No syncope or presyncope. [facility] Medical History (Updated 12/13/24 @ 09:[address] Herberth Ramos MD) Abnormal magnetic resonance cholangiopancreatography (MRCP) Alcohol abuse Bipolar disorder Depression Chronic pain Rheumatoid arthritis Osteoporosis GERD (gastroesophageal reflux disease) Former smoker Atrial fibrillation Hypertension Myocardial infarct Migraines Atherosclerotic heart disease of [place] coronary artery without angina pectoris Pure hypercholesterolemia IBS (irritable bowel syndrome) Hypothyroidism Presence of stent in coronary artery (~08/08/12) Atherosclerotic heart disease of [place] coronary artery without angina pectoris Benign essential HTN Arteriosclerotic heart disease (ASHD) Home Medications ?Medication ?Instructions ?Recorded ?Last Taken ?Type atenolol 25 mg tablet 25 mg PO DAILY 06/04/13 02/01/16 05:00 History clopidogrel 75 mg tablet 75 mg PO DAILY 06/04/13 08/19/24 History nitroglycerin 0.4 mg sublingual 0.4 mg sublingual Q5M PRN Chest 06/04/13 Unknown History tablet Pain bupropion HCl 100 mg tablet,12 hr 100 mg PO DAILY 06/28/18 Unknown History sustained-release (Wellbutrin SR) sertraline 100 mg tablet 100 mg PO DAILY 06/28/18 08/19/24 History levothyroxine 50 mcg tablet 50 mcg PO DAILY 06/10/19 Unknown History atorvastatin 80 mg tablet 80 mg PO QHS #30 tabs 12/16/19 08/19/24 Rx amlodipine 10 mg tablet 10 mg PO DAILY HTN 10/21/24 08/19/24 History sertraline 50 mg tablet 50 mg PO DAILY 10/21/24 08/19/24 History valacyclovir 500 mg tablet 500 mg PO DAILY 10/21/24 08/19/24 History pantoprazole 40 mg tablet,delayed 20 mg (1/2 x 40 mg) PO DAILY 30 10/24/24 02/01/16 05:00 Rx release days #0 tabs potassium, sodium phosphates 280 1 packet PO TID 5 days #15 ea 10/24/24 Unknown Rx mg-160 mg-250 mg oral powder packet saliva substitute combo no.9 15 ml mucous membrane 4X/DAYCM 1 10/24/24 Unknown Rx (Biotene Dry Mouth Oral Rinse month #1,000 mL mouthwash) cholecalciferol (vitamin D3) 125 125 mcg PO DAILY 12/12/24 Unknown History mcg (5,000 unit) tablet Allergy/AdvReac Type Severity Reaction Status Date / Time codeine Allergy Severe Swelling Verified 12/12/24 21:44 propoxyphene HCl (From Allergy Severe Other Verified 12/12/24 21:44 [place]) Penicillins AdvReac Intermediate Nausea/Vom/ Verified 12/12/24 21:44 Diarrhea Family History (Updated 12/13/24 @ 01:[address] Emily Garza MD) Brother CVA (cerebral vascular accident) Heart disease Cancer Mother Heart disease Father No problems noted. Surgical History History of appendectomy Presence of coronary angioplasty implant and graft (~08/08/12) History of aorto-femoral bypass History of heart artery stent History of left knee surgery History of hysterectomy History of lumbar surgery History of hysterectomy PAD (peripheral artery disease) Social History (Updated 12/13/24 @ 01:[address] Emily Garza MD) household members: spouse Smoking Status: Current some day smoker tobacco type: cigarettes alcohol intake: never substance use type: does not use Physical Exam Narrative Comfortable. No apparent distress. Lying flat in the bed. Heart sounds 1 and 2 normal. Chest clear to auscultation bilaterally. Alert oriented x 3. No ankle edema. Risk Stratification Risk Stratification Applicable: No Objective Data Vital Signs: Vital Signs Temp Pulse Resp BP Pulse Ox O2 Del Method 98.2 F 61 16 122/66 H 92 Room Air 12/13/24 08:20 12/13/24 08:20 12/13/24 08:20 12/13/24 08:20 12/13/24 08:20 12/13/24 08:20 Oxygen Delivery Method Room Air Weight: 83 lb 12.41 oz Body Mass Index (BMI) 14.3 Intake & Output: Intake and Output for Last 24 Hours 12/11/24 12/12/24 12/13/24 23:59 23:59 23:59 Intake Total 0 / 0 Output Total 300 / 300 Balance 0 / 0 -300 / -300 Lab / Micro Data 12/13/24 04:27 12/13/24 04:27 Labs: Laboratory Results - last 24 hr 12/12/24 23:25: WBC 11.2 H, RBC 3.99 L, Hgb 13.4, Hct 38.0, MCV 95.2, MCH 33.6 H, MCHC 35.3, RDW Std Deviation 45.3 H, RDW Coeff of [place] 12.9, Plt Count 200, MPV 11.1, Immature Gran % (Auto) 0.300, Neut % (Auto) 73.8 H, Lymph % (Auto) 16.2 L, [place] % (Auto) 9.1, Eos % (Auto) 0.2, Baso % (Auto) 0.4, Absolute Neuts (auto) 8.3 H, Absolute Lymphs (auto) 1.81, Nucleated RBC % 0, Sodium 136, Potassium 3.8, Chloride 101, Carbon Dioxide 22.3, Anion Gap 13, BUN 20 H, Creatinine 0.85, Estim Creat Clear Calc 41.71 L, Est GFR (MDRD) Non-Af 72, BUN/Creatinine Ratio 23.6 H, Glucose 120 H, Calcium 9.4, Magnesium 1.8, Blood Type O POSITIVE, Antibody Screen NEGATIVE 12/13/24 04:27: WBC 10.1, RBC 3.95 L, Hgb 13.1, Hct 37.2, MCV 94.2, MCH 33.2 H, MCHC 35.2, RDW Std Deviation 44.2 H, RDW Coeff of [place] 12.8, Plt Count 191, MPV 11.2, Immature Gran % (Auto) 0.300, Neut % (Auto) 65.8, Lymph % (Auto) 21.8, [place] % (Auto) 10.8 H, Eos % (Auto) 0.7, Baso % (Auto) 0.6, Absolute Neuts (auto) 6.7, Absolute Lymphs (auto) 2.21, Nucleated RBC % 0, Sodium 135, Potassium 3.3, Chloride 102, Carbon Dioxide 18.8 L, Anion Gap 15, BUN 18, Creatinine 0.67 L, Estim Creat Clear Calc 37.01 L, Est GFR (MDRD) Non-Af 92, BUN/Creatinine Ratio 26.2 H, Glucose 108 H, Calcium 9.1, Total Bilirubin 0.60, AST 54 H, ALT 17, Alkaline Phosphatase 82, NT pro BNP II 4594 H, Total Protein 6.5, Albumin 3.4, Globulin 3.1, Albumin/Globulin Ratio 1.1 Rhythm Strip Rhythm Strip: Sinus Rhythm Cardiology Labs/Tests 12/12/24 23:25: WBC 11.2 H, RBC 3.99 L, Hgb 13.4, Hct 38.0, MCV 95.2, MCH 33.6 H, MCHC 35.3, Plt Count 200, MPV 11.1, Immature Gran % (Auto) 0.300, Neut % (Auto) 73.8 H, Lymph % (Auto) 16.2 L, [place] % (Auto) 9.1, Eos % (Auto) 0.2, Baso % (Auto) 0.4, Absolute Neuts (auto) 8.3 H, Nucleated RBC % 0, Sodium 136, Potassium 3.8, Chloride 101, Carbon Dioxide 22.3, Anion Gap 13, BUN 20 H, Creatinine 0.85, Est GFR (MDRD) Non-Af 72, BUN/Creatinine Ratio 23.6 H, Glucose 120 H, Calcium 9.4, Magnesium 1.8 12/13/24 04:27: WBC 10.1, RBC 3.95 L, Hgb 13.1, Hct 37.2, MCV 94.2, MCH 33.2 H, MCHC 35.2, Plt Count 191, MPV 11.2, Immature Gran % (Auto) 0.300, Neut % (Auto) 65.8, Lymph % (Auto) 21.8, [place] % (Auto) 10.8 H, Eos % (Auto) 0.7, Baso % (Auto) 0.6, Absolute Neuts (auto) 6.7, Nucleated RBC % 0, Sodium 135, Potassium 3.3, Chloride 102, Carbon Dioxide 18.8 L, Anion Gap 15, BUN 18, Creatinine 0.67 L, Est GFR (MDRD) Non-Af 92, BUN/Creatinine Ratio 26.2 H, Glucose 108 H, Calcium 9.1, Total Bilirubin 0.60 Rhythm: EKG: Sinus rhythm. Inferior ID. Old or age-indeterminate. ECHO: Stress Test: Cardiac Cath: PCI: CT Surgery: Holter monitor: EPS: PPM: CXR: Chest CT Scan: Radiography Diagnostic Testing: Radiology Impression Chest X-Ray 12/12/24 03:20 IMPRESSION: No acute chest findings. Reading Location: [place] [id number] Hip/Pelvis X-Ray 12/12/24 22:50 IMPRESSION: Acute right intertrochanteric femoral neck fracture. Reading Location: [place] [id number]
[2024-12-13 10:41] LABS: Troponin T High Sensitivity 2685 ng/L (<=14)
--- NOTE | 2024-12-13 10:50 | CASEMGMT ---
RN CM Face to Face with patient for initial transition planning/care coordination assessment. RN CM introduced self and role at [facility]. Patient lying in bed, alert and oriented. Patient willing to participate in assessment and is able to answer all questions appropriately. Care providers, pharmacy, and demographics verified. Strata: 2 PCP: Tushar Specialists:HUSEYIN Mast Preferred Pharmacy: [facility] Insurance: [facility], [employer] other Prescription Benefit: yes Living Will/HPOA: none LNOK: , sister Living Arrangements: Radha lives with in a single story home with 3 steps and railing to enter the home. Patient states she is independent at home. Transportation: self, DME/HHC: Patient has shower chair, raised toilet, cane, walker, wheelchair. Patient states she was a SNF a few months ago. Patient understands she may need to go to SNF at discharge. Patient to have surgery and will monitor progress with therapy. Patient states she has no further needs or concerns at this time. CM to follow for discharge planning needs that may arise. Disposition Plan: TBD, anticipate SNF pending surgery and therapy. Bharati HOUSTON, RN, CM
--- NOTE | 2024-12-13 11:21 | CASEMGMT ---
Discharge Planning A list of?SNF providers including quality and resource use data and consistent with the patient's preferred geographic region, medical needs, and insurance network was created in [employer] Guide.? This list was provided to the patient. Cristal Chavez, Discharge Planning Asst.
--- NOTE | 2024-12-13 12:46 | PCM.PN.BLA ---
Progress Note Patient's troponin markedly elevated. With her ECG changes yesterday with ST segments, it confirms acute coronary syndrome. ECG changes have since resolved. Echocardiogram shows severe posterior and basal inferior hypokinesis. Overall LVEF 55-60%. Asymptomatic. Hemodynamically stable. With her recent acute coronary syndrome, she is high risk in my opinion for the proposed orthopedic surgery. Discussed with orthopedic surgery. We agreed to transfer the patient to tertiary center for her high risk surgery. Continue aspirin. Continue beta-blockers. Discussed with patient. Understands and agrees with the transfer.
[2024-12-13 13:11] LABS: Troponin T High Sens 2 HR 2932 ng/L (<=14)
[2024-12-13 16:27] LABS: International Normalized Ratio 1.1
[2024-12-13 17:04] LABS: Partial Thromboplast Time 27.6 Seconds (24.1-36.2)
[2024-12-13] MEDS: HEPARIN/D5w 25,000 UNITS 25,000 UNITS/250 ML IV.SOLN. 4 UNITS CONT INF (17:07)
[2024-12-13] MEDS: Heparin Injection (Vial) 5,000 UNIT/ML VIAL 2000 UNIT IV (17:07)
--- NOTE | 2024-12-13 18:16 | NURSING ---
spoke with pt spouse Florencio via pt cellphone on speaker and updated on POC. Florencio states he is appreciative of care and his questions being answered.
--- NOTE | 2024-12-13 18:20 | PCM.DC.SUM ---
Providers Date of Admission: 12/12/24 Date of Discharge: 12/13/24 Primary Care Physician: Dr. Laurie Finley MD Consultations 12/13/24 00:27 Consult: Cardiology Routine Consulting Provider: Herberth Ramos Reason for Consult: Hip Fx, CAD/PAF, needs cardiac clearance prior to OR EMERGENT Consult: No Notified: Yes Date Notified: 12/13/24 Time Notified: 00:23 Method of Notification: Text Consult: Orthopedics Routine Consulting Provider: Yair Najera Reason for Consult: Fall, R hip fracture EMERGENT Consult: No Notified: Yes Date Notified: 12/13/24 Time Notified: 00:23 Method of Notification: ED Physician Initiated Reason For Visit: FALL, R HIP FRACTURE Diagnosis Discharge Diagnosis (1) Preoperative cardiovascular examination: Status: Acute Code(s): Z01.810 - Encounter for preprocedural cardiovascular examination (2) Coronary artery disease: Status: Acute Code(s): I25.10 - Atherosclerotic heart disease of [place] coronary artery without angina pectoris (3) Hypertension: Status: Chronic Code(s): I10 - Essential (primary) hypertension (4) Nicotine dependence: Status: Acute Code(s): F17.200 - Nicotine dependence, unspecified, uncomplicated (5) Closed intertrochanteric fracture of right hip: Status: Acute Code(s): S72.141A - Displaced intertrochanteric fracture of right femur, initial encounter for closed fracture Plan The patient is a 73 y/o F was brought to ED for right hip pain after fall at 8 AM on day of admission. On x-ray found to have right hip intertrochanteric fracture. #1. General debility, right hip pain s/p mechanical fall complicated into acute right hip fracture: The patient is being admitted in PCU but as MedSurg status. Right hip/pelvis x-ray reviewed and shows acute right intertrochanteric fracture. Pain control PT and OT ordered. Orthopedic surgeon consulted from ER. Per NSQIP assessment patient certainly at least moderate risk given underlying cardiac history with most recent echocardiogram noted 03/28/2017 with LV function normal, EF 65%, mild MVR, mild TVR, RVSP 29 mmHg at that time, will request BNP and echocardiogram at this time and if not marked appearing may potentially consider transition to OR pending also cardiology assessment given higher risk. Non-STEMI: Beauty Artist was initially consulted for high perioperative risk and he found ST elevation in inferior leads therefore he repeat troponin which was high at 2685. He compared with the previous EKG and it was new ST-T changes therefore it confirmed acute coronary syndrome/non-STEMI. Serial troponin also shows elevated/high 2091. Continue beta-madelaine. He advised transfer to tertiary care for high perioperative risk for hip surgery in view of non-STEMI. This was also informed to the orthopedic surgeon, Dr. Kianna Najera. This was also informed of the patient and she agrees for going to [facility]. I called the transfer line discussed with the rehabilitation coordinator and later on talk to the hospitalist Dr. Alvarez who admitted the patient. After discussion agreed for starting the IV heparin drip with bolus and was started. Patient had Plavix before coming here. Patient was transferred to [facility]. Transfer paper another formalities signed. #2. Chronic Kidney Disease Stage IIIb: Admission BUN/Cr 20/0.8 baseline renal function primarily 0.6-0.9. Repeat BMP 0.67. #3. CAD: Status post PCI, she had SC when she was about 41-year-old. From chart it seems last cardiac stent was in 2012. Plavix is on hold. Continue statin, atenolol. Not on GODWIN/ARB #4. Anxiety depression/bipolar disorder:continue patient home sertraline, Seroquel, bupropion home regimen, encourage continued outpatient follow-up and evaluation as previously arranged. #5. Hypertension: Continue home regimen including amlodipine, atenolol, PRN hydralazine. #6. Hyperlipidemia: Will continue patient on statin therapy. #7. Severe protein calorie malnutrition: Patient with recent admission as noted with significant GI losses at that time but persistent weight loss over several months, will cautiously consult nutrition for input to maximize preoperative assessment. #8. PAF: Holding Plavix as noted in preparation for operative intervention, not on any chronic anticoagulant therapy for currently's but clarified to be certain, continue atenolol home regimen. #9. Hypothyroidism: continue patient home levothyroxine regimen. 10. CT evidence of mildly dilated CBD to ~9 mm without calcified stone or other visible obstructing process during last admission in October 2024: MRCP reported liver and gallbladder grossly unremarkable. CBD dilated 10 mm tapering at ampulla. No definite filling defect to suggest choledocholithiasis. Trace to mild central intrahepatic biliary dilatation also present. Findings could reflect ampullary stenosis or less likely occult temporal lesion and ERCP was suggested. She has appoint with Dr. Borrego in this month ERCP on 10/22/2024 Impressions : - Biliary papillary stenosis, benign. - A single localized biliary stricture was found in the lower third of the main bile duct. The stricture was indeterminate. - An irregularity was found in the ventral pancreatic duct in the head of the pancreas. - Choledocholithiasis was found. Complete removal was accomplished by biliary sphincterotomy and balloon extraction. - A pancreatic sphincterotomy was performed. - The biliary tree was swept and debris was found. - One temporary stent was placed into the ventral pancreatic duct. - A biliary sphincterotomy was performed. - The biliary tree was swept. - Cells for cytology obtained in the lower third of the main duct. - One temporary stent was placed into the common bile duct. 11. DVT prophylaxis: SCDs pending orthopedic surgery evaluation and preparation for OR. CODE status: Patient reports having a living will in place but not specifically healthcare power of trademark attorney set up but notes her would be her medical decision-maker if necessary. Discussed CODE status at length including difference between FULL code, DNR-CCA and DNR-CC status. Following discussions about the differences in these status, requested DNR-CCA with allowance of intubation. Patient was discharged/transferred to [facility]. Medications at Discharge Home Medications atenolol 25 mg tablet 25 mg PO DAILY 06/04/13 clopidogrel 75 mg tablet 75 mg PO DAILY 06/04/13 nitroglycerin 0.4 mg sublingual tablet 0.4 mg sublingual Q5M PRN Chest Pain 06/04/13 bupropion HCl 100 mg tablet,12 hr sustained-release (Wellbutrin SR) 100 mg PO DAILY 06/28/18 sertraline 100 mg tablet 100 mg PO DAILY 06/28/18 levothyroxine 50 mcg tablet 50 mcg PO DAILY 06/10/19 atorvastatin 80 mg tablet 80 mg PO QHS #30 tabs 12/16/19 amlodipine 10 mg tablet 10 mg PO DAILY HTN 10/21/24 sertraline 50 mg tablet 50 mg PO DAILY 10/21/24 valacyclovir 500 mg tablet 500 mg PO DAILY 10/21/24 pantoprazole 40 mg tablet,delayed release 20 mg (1/2 x 40 mg) PO DAILY 30 days #0 tabs 10/24/24 potassium, sodium phosphates 280 mg-160 mg-250 mg oral powder packet 1 packet PO TID 5 days #15 ea 10/24/24 saliva substitute combo no.9 (Biotene Dry Mouth Oral Rinse mouthwash) 15 ml mucous membrane 4X/DAYCM 1 month #1,000 mL 10/24/24 cholecalciferol (vitamin D3) 125 mcg (5,000 unit) tablet 125 mcg PO DAILY 12/12/24 Physical Exam Narrative Please see exam finding Weight / BMI Weight Weight: 83 lb 12.41 oz Body Mass Index (BMI) 14.3 ABG / Lab / Microbiology Data 12/13/24 04:27 12/13/24 04:27 Laboratory: Laboratory Results - last 24 hr 12/13/24 09:48: Troponin T High Sens 2685 H* D 12/13/24 11:59: Troponin T Hi Sens 2 Hr 2932 H* 12/13/24 15:34: APTT 27.6 12/13/24 15:35: PT 14.0, INR 1.1 Radiography Diagnostic Testing: Radiology Impression Echocardiogram 12/13/24 00:27 Interpretation Summary Mild concentric left ventricular hypertrophy. Posterior and basal inferior wall severely hypokinetic. Overall left ventricular systolic ejection fraction estimated at 60%. Stage I diastolic dysfunction. Mild mitral valve annular calcification. Moderate focal calcification of mitral valve leaflets. Mild mitral valve regurgitation. Moderate (2+) tricuspid valve insufficiency. Right ventricular systolic pressure estimated to be 39 mmHg. Ordering Physician: Emily Garza Referring Physician: Laurie Finley M.D. Performed By: Ilsa Mack RDCS D/C Instructions DC O2, CPAP, BIPAP Needs Home O2 Discharge instructions: No Meaningful Use Info Meaningful Use Meaningful Use Diagnoses (Choose all that apply): None applicable Ischemic Stroke Statin Dosing Therapy Reference: STATIN DOSE THERAPY REFERENCE: * Patients > 75 years receive moderate or high dose statin therapy. * Patients 75 years or YOUNGER should receive HIGH intensity statin dose unless contraindicated. You will be required to document reason for non-treatment if statin daily dose does not meet guidelines. HIGH DOSE STATIN THERAPY DAILY Atorvastatin > than or = to 40 mg Rosuvastatin > than or = to 20 mg Amlodipine + Atorvastatin > than or = to 2.5/40 mg Ezetimibe + Simvastatin 10/80 mg Simvastatin 80mg Discharge Plan Admission Admit Date/Time: 12/12/24 23:51 Attending Provider: Monico Patterson Primary Care Provider: Laurie Finley Consulting Providers: Yair Najera; Herberth Ramos; Emily Garza Discharge Orders/Prescriptions Prescriptions: No Action bupropion HCl [Wellbutrin SR] 100 mg tablet sustained-release 12 hr 100 mg PO DAILY atenolol 25 MG tablet 25 mg PO DAILY Patient Comments: BP clopidogrel 75 MG tablet 75 mg PO DAILY Patient Comments: ANTIPLATLET nitroglycerin 0.4 MG tablet 0.4 mg Sublingual Q5M PRN (Reason: Chest Pain) sertraline 100 mg tablet 100 mg PO DAILY Patient Comments: MOOD levothyroxine 50 mcg tablet 50 mcg PO DAILY Patient Comments: THYROID valacyclovir 500 mg tablet 500 mg PO DAILY amlodipine 10 mg tablet 10 mg PO DAILY sertraline 50 mg tablet 50 mg PO DAILY Biotene Dry Mouth Oral Rinse Mouthwash 15 ml mucous membrane 4X/DAYCM 30 Days Qty: 1000 0RF pantoprazole 40 MG tablet 20 mg PO DAILY 30 Days Qty: 0 0RF Patient Comments: STOMACH potassium, sodium phosphates 280-160-250 mg Powder In Packet 1 packet PO TID 5 Days Qty: 15 0RF cholecalciferol (vitamin D3) 125 mcg (5,000 unit) tablet 125 mcg PO DAILY atorvastatin 80 mg tablet 80 mg PO QHS Qty: 30 12RF Referrals / Follow Up: Laurie Finley MD [Primary Care Provider] - Disposition Disposition (needs filled in before D/C Order can be placed): Acute Care Hospital Charges/Coding Visit Charges Inpatient E&M: 41973 Disch Hosp >30min
== END 2024-12-13 21:27 | disposition short-term general hospital (02) | DRG 535 ==
LOC: ED 23:43 → PCU 12-13
PROVIDERS: Internal Medicine Cardiovascular Disease; Admitting Provider Family Medicine; Emergency Provider Emergency Medicine; PCP Internal Medicine; Visit Provider Internal Medicine
DX: S72.141A Displaced intertrochanteric fracture of right femur, initial encounter for closed fracture (principal); I21.4 Non-ST elevation (NSTEMI) myocardial infarction; E43 Unspecified severe protein-calorie malnutrition; Z68.1 Body mass index [BMI] 19.9 or less, adult; Z66 Do not resuscitate; I48.0 Paroxysmal atrial fibrillation; F31.9 Bipolar disorder, unspecified; N18.32 Chronic kidney disease, stage 3b; I12.9 Hypertensive chronic kidney disease with stage 1 through stage 4 chronic kidney disease, or unspecified chronic kidney disease; E03.9 Hypothyroidism, unspecified; E78.00 Pure hypercholesterolemia, unspecified; I25.10 Atherosclerotic heart disease of native coronary artery without angina pectoris; I25.2 Old myocardial infarction; F41.9 Anxiety disorder, unspecified; K83.8 Other specified diseases of biliary tract; W01.0XXA Fall on same level from slipping, tripping and stumbling without subsequent striking against object, initial encounter; F17.210 Nicotine dependence, cigarettes, uncomplicated; K21.9 Gastro-esophageal reflux disease without esophagitis; Z95.5 Presence of coronary angioplasty implant and graft; Z79.02 Long term (current) use of antithrombotics/antiplatelets; Z79.82 Long term (current) use of aspirin; Z79.890 Hormone replacement therapy; Z79.899 Other long term (current) drug therapy
CPT/HCPCS: 36415; 71045; 73502; 80048; 80053; 83735; 83880; 84484; 85025; 85610; 85730; 86850; 86900; 86901; 93005; 93306; 97802; 99285; A4216